=== PATIENT | female | born 1955 | race Caucasian/White ===

== ENCOUNTER → 2016-08-28 | Outpatient (CLI) | payer MEDICARE, MEDICAID | LOC: FS 10:21 | PROVIDERS: ATTEND Internal Medicine Hematology & Oncology | DX: D05.12 Intraductal carcinoma in situ of left breast (principal); F41.9 Anxiety disorder, unspecified; F32.9 Major depressive disorder, single episode, unspecified; E11.9 Type 2 diabetes mellitus without complications; K21.9 Gastro-esophageal reflux disease without esophagitis; I10 Essential (primary) hypertension; E78.00 Pure hypercholesterolemia, unspecified; E03.9 Hypothyroidism, unspecified; G47.33 Obstructive sleep apnea (adult) (pediatric); N39.3 Stress incontinence (female) (male); Z92.3 Personal history of irradiation; Z90.710 Acquired absence of both cervix and uterus; Z79.899 Other long term (current) drug therapy | CPT/HCPCS: 99213 ==

== ENCOUNTER 2017-09-30 14:38 | Outpatient (CLI) | payer MEDICARE, MEDICAID ==
[2017-09-30 15:10] LABS: BASOPHILS # (AUTO) 0.1 10^3/uL (0.0-0.1); BASOPHILS % (AUTO) 1 % (0-10); EOSINOPHILS # (AUTO) 0.4 10^3/uL (0.0-0.3); EOSINOPHILS % (AUTO) 4 % (0-10); HEMATOCRIT 32 % (35-52); HEMOGLOBIN 9.6 G/DL (11.5-16.0); LYMPHOCYTES # (AUTO) 2.4 X 10^3 (1.0-4.0); LYMPHOCYTES % (AUTO) 27 % (12-44); MEAN CORPUSCULAR HEMOGLOBIN 27 PG (25-34); MEAN CORPUSCULAR HGB CONC 30 G/DL (32-36); MEAN CORPUSCULAR VOLUME 91 FL (80-99); MEAN PLATELET VOLUME 8.8 FL (7.4-10.4); MONOCYTES # (AUTO) 0.6 X 10^3 (0.0-1.0); MONOCYTES % (AUTO) 7 % (0-12); NEUTROPHILS # (AUTO) 5.7 X 10^3 (1.8-7.8); NEUTROPHILS % (AUTO) 62 % (42-75); PLATELET COUNT 309 10^3/uL (130-400); RED CELL DISTRIBUTION WIDTH 14.4 % (10.0-14.5); WHITE BLOOD COUNT 9.1 10^3/uL (4.3-11.0)
[2017-09-30 15:28] LABS: ALANINE AMINOTRANSFERASE 11 U/L (0-55); ALBUMIN 3.6 GM/DL (3.2-4.5); ALKALINE PHOSPHATASE 124 U/L (40-136); BILIRUBIN,TOTAL 0.2 MG/DL (0.1-1.0); BUN/CREATININE RATIO 24; CALCIUM 9.3 MG/DL (8.5-10.1); CARBON DIOXIDE 25 MMOL/L (21-32); CHLORIDE 104 MMOL/L (98-107); CREATININE SERUM 0.74 MG/DL (0.60-1.30); GFR ESTIMATED > 60; GLUCOSE 106 MG/DL (70-105); POTASSIUM 4.5 MMOL/L (3.6-5.0); SODIUM 137 MMOL/L (135-145)
[2017-12-30 12:53] LABS: BASOPHILS % (AUTO) 0 % (0-10); EOSINOPHILS # (AUTO) 0.3 10^3/uL (0.0-0.3); EOSINOPHILS % (AUTO) 3 % (0-10); HEMATOCRIT 37 % (35-52); HEMOGLOBIN 11.5 G/DL (11.5-16.0); LYMPHOCYTES # (AUTO) 2.2 X 10^3 (1.0-4.0); LYMPHOCYTES % (AUTO) 24 % (12-44); MEAN CORPUSCULAR HEMOGLOBIN 28 PG (25-34); MEAN CORPUSCULAR HGB CONC 31 G/DL (32-36); MEAN CORPUSCULAR VOLUME 90 FL (80-99); MEAN PLATELET VOLUME 8.5 FL (7.4-10.4); MONOCYTES # (AUTO) 0.5 X 10^3 (0.0-1.0); MONOCYTES % (AUTO) 6 % (0-12); NEUTROPHILS % (AUTO) 67 % (42-75); PLATELET COUNT 227 10^3/uL (130-400); RED BLOOD COUNT 4.08 10^6/uL (4.35-5.85); RED CELL DISTRIBUTION WIDTH 14.4 % (10.0-14.5)
== END 2017-12-30 12:40 | disposition home or self-care (01) ==
LOC: ONC 14:38
PROVIDERS: ATTEND Internal Medicine Hematology & Oncology
DX: D64.9 Anemia, unspecified (principal); Z86.000 Personal history of in-situ neoplasm of breast; E11.9 Type 2 diabetes mellitus without complications; K21.9 Gastro-esophageal reflux disease without esophagitis; E78.00 Pure hypercholesterolemia, unspecified; E03.9 Hypothyroidism, unspecified; G47.33 Obstructive sleep apnea (adult) (pediatric); N39.3 Stress incontinence (female) (male); F41.9 Anxiety disorder, unspecified; F32.9 Major depressive disorder, single episode, unspecified; F40.240 Claustrophobia; Z90.710 Acquired absence of both cervix and uterus; Z79.899 Other long term (current) drug therapy; Z79.82 Long term (current) use of aspirin; Z79.84 Long term (current) use of oral hypoglycemic drugs; Z09 Encounter for follow-up examination after completed treatment for conditions other than malignant neoplasm; Z92.3 Personal history of irradiation
CPT/HCPCS: 36415; 80053; 82728; 83540; 85025; 99213

== ENCOUNTER 2017-12-30 12:43 | Outpatient (RCR) | payer MEDICARE, MEDICAID | END 2018-03-30 | disposition home or self-care (01) | LOC: ONC 12:43 | PROVIDERS: ATTEND Internal Medicine Hematology & Oncology | DX: D50.9 Iron deficiency anemia, unspecified (principal); Z86.000 Personal history of in-situ neoplasm of breast; E11.9 Type 2 diabetes mellitus without complications; K21.9 Gastro-esophageal reflux disease without esophagitis; E78.00 Pure hypercholesterolemia, unspecified; E03.9 Hypothyroidism, unspecified; G47.33 Obstructive sleep apnea (adult) (pediatric); N39.3 Stress incontinence (female) (male); F41.9 Anxiety disorder, unspecified; F32.9 Major depressive disorder, single episode, unspecified; F40.240 Claustrophobia; Z90.710 Acquired absence of both cervix and uterus; Z79.899 Other long term (current) drug therapy; Z79.82 Long term (current) use of aspirin; Z79.84 Long term (current) use of oral hypoglycemic drugs; Z09 Encounter for follow-up examination after completed treatment for conditions other than malignant neoplasm; Z92.3 Personal history of irradiation | CPT/HCPCS: 99213 ==

== ENCOUNTER → 2018-04-24 | Outpatient (CLI) | payer OTHER, MEDICAID ==
--- NOTE | 2018-04-24 18:22 | Diagnostic Imaging Report ---
INDICATION: Pain. FINDINGS: There are arthritic changes about the knee greatest at the lateral and medial tibiofemoral compartment but also involving the patellofemoral joint. No radiodense loose body. No obvious joint effusion. IMPRESSION: Osteoarthritis with no opaque loose body, convincing evidence for joint effusion, or acute bony pathology. Dictated by: Dictated on workstation # [id number]
--- NOTE | 2018-04-24 18:22 | Diagnostic Imaging Report ---
INDICATION: Nontraumatic pain. FINDINGS: There is mild glenohumeral osteoarthritis. The AC joint is unremarkable. The visualized adjacent ribs, pleura, and right lung appear unremarkable. No loose body. No fracture, dislocation, bony destruction, or foreign body. IMPRESSION: Unremarkable shoulder radiographs. Dictated by: Dictated on workstation # [id number]
== END ==
LOC: RAD FS 17:24
PROVIDERS: ATTEND Family Medicine
DX: M17.11 Unilateral primary osteoarthritis, right knee (principal); M25.511 Pain in right shoulder
CPT/HCPCS: 73030; 73562

== ENCOUNTER 2018-04-29 12:25 | Outpatient (RCR) | payer MEDICARE, MEDICAID ==
[2018-04-29 12:59] LABS: ABSOLUTE RETIC # 79 10e9/L (24-90); BASOPHILS # (AUTO) 0.1 10^3/uL (0.0-0.1); BASOPHILS % (AUTO) 1 % (0-10); EOSINOPHILS # (AUTO) 0.2 10^3/uL (0.0-0.3); EOSINOPHILS % (AUTO) 2 % (0-10); HEMATOCRIT 36 % (35-52); HEMOGLOBIN 11.2 G/DL (11.5-16.0); LYMPHOCYTES % (AUTO) 27 % (12-44); MEAN CORPUSCULAR HEMOGLOBIN 29 PG (25-34); MEAN CORPUSCULAR HGB CONC 31 G/DL (32-36); MEAN CORPUSCULAR VOLUME 93 FL (80-99); MONOCYTES # (AUTO) 0.6 X 10^3 (0.0-1.0); MONOCYTES % (AUTO) 7 % (0-12); NEUTROPHILS # (AUTO) 4.7 X 10^3 (1.8-7.8); NEUTROPHILS % (AUTO) 63 % (42-75); PLATELET COUNT 227 10^3/uL (130-400); RED CELL DISTRIBUTION WIDTH 13.4 % (10.0-14.5); RETICULOCYTE % 2.05 % (0.50-2.40); WHITE BLOOD COUNT 7.5 10^3/uL (4.3-11.0)
[2018-04-29 13:22] LABS: ALANINE AMINOTRANSFERASE 8 U/L (0-55); ALBUMIN 3.6 GM/DL (3.2-4.5); ALKALINE PHOSPHATASE 92 U/L (40-136); BILIRUBIN,TOTAL 0.3 MG/DL (0.1-1.0); BUN/CREATININE RATIO 19; CALCIUM 9.6 MG/DL (8.5-10.1); CARBON DIOXIDE 28 MMOL/L (21-32); CHLORIDE 102 MMOL/L (98-107); CREATININE SERUM 0.79 MG/DL (0.60-1.30); GFR ESTIMATED > 60; GLUCOSE 123 MG/DL (70-105); POTASSIUM 4.7 MMOL/L (3.6-5.0); SODIUM 140 MMOL/L (135-145); TOTAL PROTEIN 6.8 GM/DL (6.4-8.2)
[2018-07-19] MEDS ORDERED: ONDA4TAB11 PO (23:44)
[2018-07-19] MEDS ORDERED: CEPH500T PO (23:44)
== END 2018-07-28 | disposition home or self-care (01) ==
LOC: ONC 12:25
PROVIDERS: ATTEND Internal Medicine Hematology & Oncology
DX: D50.9 Iron deficiency anemia, unspecified (principal); Z86.000 Personal history of in-situ neoplasm of breast; E11.9 Type 2 diabetes mellitus without complications; K21.9 Gastro-esophageal reflux disease without esophagitis; E78.00 Pure hypercholesterolemia, unspecified; E03.9 Hypothyroidism, unspecified; G47.33 Obstructive sleep apnea (adult) (pediatric); N39.3 Stress incontinence (female) (male); F41.9 Anxiety disorder, unspecified; F32.9 Major depressive disorder, single episode, unspecified; F40.240 Claustrophobia; Z90.710 Acquired absence of both cervix and uterus; Z79.899 Other long term (current) drug therapy; Z79.82 Long term (current) use of aspirin; Z79.84 Long term (current) use of oral hypoglycemic drugs; Z09 Encounter for follow-up examination after completed treatment for conditions other than malignant neoplasm; Z92.3 Personal history of irradiation
CPT/HCPCS: 36415; 80053; 82728; 85025; 85045; 99213

== ENCOUNTER → 2018-05-01 | Outpatient (CLI) | payer MEDICARE, MEDICAID ==
--- NOTE | 2018-05-01 14:16 | Diagnostic Imaging Report ---
INDICATION: Injury to the right shoulder. TIME OF EXAM: 02:04 p.m. FINDINGS: Three views of the right shoulder demonstrate normal glenohumeral and acromioclavicular alignment. The acromiohumeral space is normal. No fracture or dislocation is seen. IMPRESSION: No acute abnormalities detected. Dictated by: Dictated on workstation # [id number]
--- NOTE | 2018-05-01 14:55 | Diagnostic Imaging Report ---
INDICATION: Contusion/injury, right shoulder injury COMPARISON: AP and Y. views of 05/01/2018 at 2:04 PM. Two axillary views of the right shoulder demonstrate minimal joint space narrowing. There is no osseous lesion, fracture or dislocation. IMPRESSION: No fracture or dislocation. Dictated by: Dictated on workstation # [id number]
== END ==
LOC: RAD FS 13:51
PROVIDERS: ATTEND Nurse Practitioner
DX: S40.011A Contusion of right shoulder, initial encounter (principal); M19.011 Primary osteoarthritis, right shoulder
CPT/HCPCS: 73020; 73030

== ENCOUNTER 2018-07-19 22:16 | Emergency (ER) | payer MEDICARE, MEDICAID ==
[~2018-07-19] VITALS: Ht 157.5 cm; Wt 113.4 kg
[2018-07-19] MEDS ORDERED: NS IV 500 ML 500 ML IV STA (22:31)
[2018-07-19] MEDS ORDERED: ONDANSETRON 4 MG/2 ML (SDV) Z0FRAN IVP STA (22:31)
[2018-07-19] MEDS ORDERED: KETOROLAC 30 MG/ML VIAL IVP ONE (22:45)
--- NOTE | 2018-07-19 22:53 | ED GI ---
General Chief Complaint: Abdominal/GI Problems Stated Complaint: VOMITTING Source of Information: Patient History of Present Illness Date Seen by Provider: Jul 19, 2018 Time Seen by Provider: 22:24 Initial Comments 63-year-old female presenting with complaints of epigastric pain and nausea and vomiting. She states that she had been out at [employer] and was eating [employer] and food at the fair. After getting home this evening she was having diffuse abdominal pain and cramping with n/v. She was vomiting bile and so she came to the ED to be evaluated. She has had similar symptoms in the past with UTI. She has no fever but subjectively felt like she had a fever and chills. She has frequency with urination but no pain. She has not had a bowel movement today but had one yesterday that was normal for her. Allergies and Home Medications Allergies Coded Allergies: Sulfa (Sulfonamide Antibiotics) (Verified Allergy, Intermediate, Rash, 07/19/18) azithromycin (Verified Allergy, Intermediate, Nausea, 07/19/18) nausea and vomiting oxycodone (Verified Allergy, Intermediate, Rash, 07/19/18) prednisone (Verified Allergy, Intermediate, Rash, 07/19/18) Rash, Nausea/Vomiting propoxyphene (Verified Allergy, Intermediate, Rash, 07/19/18) vilazodone (Verified Allergy, Intermediate, Diarrhea, 07/19/18) aspartame (Verified Allergy, Unknown, 07/19/18) Home Medications Cephalexin 500 Mg Tablet, 500 MG PO TID Prescribed by: DAYSI DE LA FUENTE on 07/19/18 2344 Ondansetron 4 Mg Tab.rapdis, 4 MG PO Q6H PRN for NAUSEA/VOMITING Prescribed by: DAYSI CHAUDHRYRT on 07/19/18 2344 Patient Home Medication List Home Medication List Reviewed: Yes Review of Systems Review of Systems Constitutional: chills, fever (subjective), malaise EENTM: No Symptoms Reported Respiratory: No Symptoms Reported Cardiovascular: No Symptoms Reported Gastrointestinal: See HPI Genitourinary: See HPI Musculoskeletal: no symptoms reported Skin: no symptoms reported Psychiatric/Neurological: No Symptoms Reported Endocrine: No Symptoms Reported Past Skwchhz-Ejijyl-Xhffqr Hx Past Med/Social Hx: Reviewed Nursing Past Med/Soc Hx Patient Social History Recent Foreign Travel: No Contact w/Someone Who Travel: No Physical Exam Vital Signs Vital Signs - First Documented 07/19/18 22:30 Temp 98.3 Pulse 100 Resp 18 B/P (MAP) 153/82 (105) Pulse Ox 95 Capillary Refill : Height/Weight/BMI Height: '" Weight: lbs. oz. kg; BMI Method: General Appearance: no apparent distress, obese HEENT: normal ENT inspection, pharynx normal Neck: non-tender, full range of motion, supple, normal inspection Respiratory: chest non-tender, lungs clear, normal breath sounds Cardiovascular: normal peripheral pulses, regular rate, rhythm Gastrointestinal: normal bowel sounds, soft, no pulsatile mass, tenderness (mild epigastric and suprapubic tenderness to palpation) Extremities: normal range of motion, non-tender, no calf tenderness Neurologic/Psychiatric: alert Skin: normal color, warm/dry Progress/Results/Core Measures Results/Orders Lab Results Laboratory Tests Test 07/19/18 22:30 07/19/18 23:00 Range/Units White Blood Count 9.2 4.3-11.0 10^3/uL Red Blood Count 3.95 L 4.35-5.85 10^6/uL Hemoglobin 11.8 11.5-16.0 G/DL Hematocrit 38 35-52 % Mean Corpuscular Volume 96 80-99 FL Mean Corpuscular Hemoglobin 30 25-34 PG Mean Corpuscular Hemoglobin Concent 31 L 32-36 G/DL Red Cell Distribution Width 13.9 10.0-14.5 % Platelet Count 227 130-400 10^3/uL Mean Platelet Volume 9.1 7.4-10.4 FL Neutrophils (%) (Auto) 58 42-75 % Lymphocytes (%) (Auto) 32 12-44 % Monocytes (%) (Auto) 7 0-12 % Eosinophils (%) (Auto) 3 0-10 % Basophils (%) (Auto) 0 0-10 % Neutrophils # (Auto) 5.3 1.8-7.8 X 10^3 Lymphocytes # (Auto) 2.9 1.0-4.0 X 10^3 Monocytes # (Auto) 0.7 0.0-1.0 X 10^3 Eosinophils # (Auto) 0.2 0.0-0.3 10^3/uL Basophils # (Auto) 0.0 0.0-0.1 10^3/uL Sodium Level 139 135-145 MMOL/L Potassium Level 4.4 3.6-5.0 MMOL/L Chloride Level 96 L 98-107 MMOL/L Carbon Dioxide Level 23 21-32 MMOL/L Anion Gap 20 H 5-14 MMOL/L Blood Urea Nitrogen 33 H 7-18 MG/DL Creatinine 1.15 0.60-1.30 MG/DL Estimat Glomerular Filtration Rate 48 BUN/Creatinine Ratio 29 Glucose Level 154 H 70-105 MG/DL Calcium Level 9.6 8.5-10.1 MG/DL Corrected Calcium 9.5 8.5-10.1 MG/DL Total Bilirubin 0.3 0.1-1.0 MG/DL Aspartate Amino Transf (AST/SGOT) 17 5-34 U/L Alanine Aminotransferase (ALT/SGPT) 12 0-55 U/L Alkaline Phosphatase 116 40-136 U/L Total Protein 7.5 6.4-8.2 GM/DL Albumin 4.1 3.2-4.5 GM/DL Lipase 21 8-78 U/L Urine Color YELLOW Urine Clarity CLEAR Urine pH 5.5 5-9 Urine Specific [place] 1.020 1.016-1.022 Urine Protein NEGATIVE NEGATIVE Urine Glucose (UA) NEGATIVE NEGATIVE Urine Ketones NEGATIVE NEGATIVE Urine Nitrite NEGATIVE NEGATIVE Urine Bilirubin NEGATIVE NEGATIVE Urine Urobilinogen 1.0 NORMAL MG/DL Urine Leukocyte Esterase NEGATIVE NEGATIVE Urine RBC (Auto) NEGATIVE NEGATIVE Urine RBC NONE /HPF Urine WBC 2-5 /HPF Urine Squamous Epithelial Cells 2-5 /HPF Urine Crystals NONE /LPF Urine Bacteria MODERATE H /HPF Urine Casts PRESENT /LPF Urine Hyaline Casts 10-25 H /LPF Urine Mucus MODERATE H /LPF Urine Culture Indicated YES My Orders Orders - DAYSI DE LA FUENTE MD Comprehensive Metabolic Panel (07/19/18 22:31) Lipase (07/19/18 22:31) Ua Culture If Indicated (07/19/18 22:31) Ed Iv/Invasive Line Start (07/19/18 22:31) Cbc With Automated Diff (07/19/18 22:31) Ns Iv 500 Ml (Sodium Chloride 0.9%) (07/19/18 22:31) Ondansetron Injection (Zofran Injectio (07/19/18 22:31) Ketorolac Injection (Toradol Injection) (07/19/18 22:45) Urine Culture (07/19/18 23:00) Ceftriaxone For Iv Use (Rocephin For I (07/19/18 23:25) Rx-Ondansetron Po (Rx-Zofran Po) (07/19/18 23:45) Medications Given in ED Current Medications Medications Dose Ordered Sig/Bebeto Route Start Time Stop Time Status Last Admin Dose Admin Ketorolac Tromethamine 30 mg ONCE ONCE IVP 07/19/18 22:45 07/19/18 22:46 DC 07/19/18 23:00 30 MG Ondansetron HCl 4 mg Q6H PRN PO 07/19/18 23:45 07/20/18 00:11 DC 07/19/18 23:46 4 MG Vital Signs/I&O 07/19/18 07/19/18 22:30 23:58 Temp 98.3 Pulse 100 70 Resp 18 16 B/P (MAP) 153/82 (105) 114/64 (81) Pulse Ox 95 96 07/20/18 00:00 Intake Total 510 ml Balance 510 ml Progress Progress Note #1: Progress Note check labs and UA. Give IVF of 500 mL NS for hydration, Zofran for nausea, Toradol for pain. Progress Note #2: Progress Note On recheck she is feeling better. Labs do not show any acute significant abnormality on CBC or Chemistry. Her UA does show findings consistent with UTI so will give Rocephin 1 gm IV here and discharge on keflex. Treat nausea with Zofran ODT prn Departure Impression Primary Impression: Acute cystitis without hematuria Additional Impression: Bilious vomiting with nausea Disposition: HOME, SELF-CARE Condition: Improved Departure-Patient Inst. Decision time for Depature: 23:40 Referrals: [facility] MD (PCP/Family) Primary Care Physician Patient Instructions: Nausea and Vomiting, Adult (DC), Acute Cystitis (DC) Add. Discharge Instructions: Take antibiotics until gone. Stay well hydrated to help flush out the urine infection. You may also take Mylanta or Pepcid medicine to help with stomach upset or indigestion. Zofran dissolving tablets will help with nausea so you are not throwing up so much. All discharge instructions reviewed with patient and/or family. Voiced understanding. Scripts Ondansetron (Ondansetron Odt) 4 Mg Tab.rapdis 4 MG PO Q6H PRN for NAUSEA/VOMITING for 3 Days, #10 TAB 0 Refills Prov: DAYSI DE LA FUENTE MD 07/19/18 Cephalexin (Cephalexin) 500 Mg Tablet 500 MG PO TID for UTI for 10 Days, #30 TAB 0 Refills Prov: DAYSI DE LA FUENTE MD 07/19/18 DAYSI DE LA FUENTE MD Jul 19, 2018 22:53
[2018-07-19 22:58] LABS: POTASSIUM 4.4 MMOL/L (3.6-5.0)
[2018-07-19 22:59] LABS: ALBUMIN 4.1 GM/DL (3.2-4.5); BILIRUBIN,TOTAL 0.3 MG/DL (0.1-1.0); CALCIUM 9.6 MG/DL (8.5-10.1); CREATININE SERUM 1.15 MG/DL (0.60-1.30); TOTAL PROTEIN 7.5 GM/DL (6.4-8.2)
[2018-07-19 23:00] LABS: BASOPHILS % (AUTO) 0 % (0-10); EOSINOPHILS % (AUTO) 3 % (0-10); HEMATOCRIT 38 % (35-52); HEMOGLOBIN 11.8 G/DL (11.5-16.0); LYMPHOCYTES # (AUTO) 2.9 X 10^3 (1.0-4.0); LYMPHOCYTES % (AUTO) 32 % (12-44); MEAN CORPUSCULAR HEMOGLOBIN 30 PG (25-34); MEAN CORPUSCULAR HGB CONC 31 G/DL (32-36); MEAN CORPUSCULAR VOLUME 96 FL (80-99); MEAN PLATELET VOLUME 9.1 FL (7.4-10.4); MONOCYTES % (AUTO) 7 % (0-12); NEUTROPHILS # (AUTO) 5.3 X 10^3 (1.8-7.8); NEUTROPHILS % (AUTO) 58 % (42-75); PLATELET COUNT 227 10^3/uL (130-400); RED CELL DISTRIBUTION WIDTH 13.9 % (10.0-14.5); WHITE BLOOD COUNT 9.2 10^3/uL (4.3-11.0)
[2018-07-19 23:01] LABS: EOSINOPHILS # (AUTO) 0.2 10^3/uL (0.0-0.3); MONOCYTES # (AUTO) 0.7 X 10^3 (0.0-1.0)
[2018-07-19 23:16] LABS: CLARITY,URINE CLEAR; COLOR,URINE YELLOW; GLUCOSE, URINE (UA) NEGATIVE (NEGATIVE); PH,URINE 5.5 (5-9); PROTEIN,URINE NEGATIVE (NEGATIVE)
[2018-07-19 23:17] LABS: BACTERIA,URINE MODERATE /HPF; BILIRUBIN,URINE NEGATIVE (NEGATIVE); KETONES,URINE NEGATIVE (NEGATIVE); LEUKOCYTE ESTERASE ,URINE NEGATIVE (NEGATIVE); NITRITE,URINE NEGATIVE (NEGATIVE)
[2018-07-19] MEDS ORDERED: cefTRIAXone FOR IV USE 1,000 MG in WATER (STERILE) FOR INJECTION 10 ML IV STA (23:25)
[2018-07-19] MEDS ORDERED: ONDA4TAB11 PO (23:44)
[2018-07-19] MEDS ORDERED: CEPH500T PO (23:44)
[2018-07-19] MEDS ORDERED: RX-ONDANSETRON 4 MG ODT (ZOFRAN) PPK #4 PO PRN (23:45)
[2018-07-19 23:58] VITALS: BP 114/64
--- OUTSIDE RECORDS SUMMARY | 2018-07-20 06:23 | XMS REPORT | Clinical Summary ---
Author Author [facility] Organization [facility] Address Unknown Phone Unavailable Care Team Providers Care [place] [facility] Name Role Phone Self, Hasmukh HARRIS PCP Allergies Active Allergy Reactions Severity Noted Date Comments Aspartame 06/17/2017 Azithromycin 06/17/2017 Oxycodone-Acetaminophen 06/17/2017 Oxycodone 06/17/2017 Miy-Sitlwyevb-Oxv Prednisone 06/17/2017 Propoxyphene 06/17/2017 Sulfa (Sulfonamide 06/17/2017 Antibiotics) Vilazodone 06/17/2017 Current Medications Prescription Sig. Disp. Refills Start End Date Status Date ARIPiprazole (ABILIFY) 20 TAKE 1/2 TABLET BY MOUTH 1 06/12/19 Active MG tablet DAILY 18 ciprofloxacin HCl 4 DROPS LEFT EAR BID FOR 0 05/31/19 Active (CILOXAN) 0.3 % 7 DAYS 18 ophthalmic solution DOK 100 mg capsule TK 1 C PO BID 1 06/13/19 Active 18 enalapril (VASOTEC) 5 MG TK 1 T PO D 2 04/16/19 Active tablet 18 HYSINGLA ER 40 mg TP24 TK 1 T PO DAILY 0 06/14/19 Active 18 indomethacin (INDOCIN) 25 TK 1 C PO TID . REPLACES 0 06/11/19 Active MG capsule MELOXICAM FOR ONE WEEK. 18 levothyroxine (SYNTHROID, 5 04/16/19 Active LEVOTHROID) 112 MCG 18 tablet loratadine (CLARITIN) 10 TK 1 T PO D 5 05/30/19 Active mg tablet 18 LORazepam (ATIVAN) 1 MG 2 05/29/19 Active tablet 18 meclizine (ANTIVERT) 25 3 06/13/19 Active mg tablet 18 meloxicam (MOBIC) 15 MG TK 1 T PO D 1 04/26/19 Active tablet 18 metformin (GLUCOPHAGE) TK 1 T PO D HS 1 04/25/19 Active 500 mg tablet 18 MOVANTIK 25 mg Tab 0 05/25/19 Active 18 NYSTOP powder APPLY TO AFFECTED AREA 0 06/13/19 Active BID 18 nystatin (MYCOSTATIN) ROCHELLE EXT AA BID 1 03/20/19 Active cream 18 omeprazole (PRILOSEC) 20 TK 1 C PO D 5 04/03/19 Active MG capsule 18 simvastatin (ZOCOR) 40 MG TK 1 T PO DAILY LATE 0 05/25/19 Active tablet 18 timolol (TIMOPTIC) 0.5 % INT 1 GTT IN OU BID 0 05/15/19 Active ophthalmic solution 18 venlafaxine (EFFEXOR-XR) 5 05/29/19 Active 150 mg ER 24 hr capsule 18 zolpidem (AMBIEN) 10 mg TK 1 T PO D HS 2 06/12/19 Active tablet 18 Active Problems Not on file Social History Tobacco Use Types Packs/Day Years Used Date Former Smoker Smokeless Tobacco: Never Used Alcohol Use Drinks/Week oz/Week Comments No Sex Assigned at Date Recorded Not on file Last Filed Vital Signs Vital Sign Reading Time Taken Blood Pressure 118/80 06/18/2017 12:46 AM CDT Pulse 88 06/18/2017 4:45 AM CDT Temperature 36.8 C (98.3 F) 06/17/2017 8:33 PM CDT Respiratory Rate 21 06/18/2017 4:45 AM CDT Oxygen Saturation 96% 06/18/2017 4:45 AM CDT Inhaled Oxygen - - Concentration Weight 104.3 kg (230 lb) 06/17/2017 8:33 PM CDT Height 167.6 cm (5' 6") 06/17/2017 8:33 PM CDT Body Mass Index 37.12 06/17/2017 8:33 PM CDT Plan of Treatment Health Maintenance Due Date Last Done Comments Hepatitis C Screen 1955 Medicare Annual Wellness 1955 Td # 1955 Colorectal Screening via 2007 Colonoscopy Mammogram Screening 2007 Zoster Vaccine# (1 of 2) 2007 Influenza Vaccine (Season 12/19/2018 Ended) Results Not on filefrom Last 3 Months
--- OUTSIDE RECORDS SUMMARY | 2018-07-20 06:24 | XMS REPORT ---
Author Author Migration, Doctor Organization [facility] Address Unknown Phone Unavailable Care Team Providers Care Utility Bill Collection Clerk Name Role Phone Migration, Doctor Unavailable Unavailable PROBLEMS Type Condition ICD9-CM Code EMN63-FU Code Onset Dates Condition Status SNOMED Code Problem Other chronic pain G89.29 Active 76528579 Problem Open wound of right foot, initial encounter S91.301A Active [id number] Problem Arthritis M19.90 Active 6278530 Problem Osteoarthritis M19.90 Active 670463042 Problem Major depression F32.9 Active 285960220 Problem Essential hypertension I10 Active 63784693 Problem GERD (gastroesophageal reflux disease) K21.9 Active 988614877 Problem Insomnia G47.00 Active 837832139 Problem Breast cancer C50.919 Active 826751058 Problem Spinal stenosis M48.00 Active 78506756 Problem Migraine G43.909 Active 71574604 Problem Migraine with aura and without status migrainosus, not intractable G43.109 Active 6920664 Problem Anxiety F41.9 Active 94969331 Problem Panic disorder F41.0 Active 694294281 Problem Functional urinary incontinence R39.81 Active 261850681 Problem Hypothyroidism E03.9 Active 21283063 Problem Major depressive disorder, recurrent episode, moderate F33.1 Active 687043422 Problem Borderline personality disorder F60.3 Active 36669593 Problem Morbid (severe) obesity due to excess calories E66.01 Active 647118655 Problem IZABEL on CPAP G47.33 Active 40842587 Problem Type 2 diabetes mellitus E11.9 Active 03772506 Problem Diabetic polyneuropathy associated with type 2 diabetes mellitus E11.42 Active 09095135 ALLERGIES No Information ENCOUNTERS Encounter Location Date Diagnosis [address] [address] Aug, [address] [address] Jul, [facility] [address] [facility] [id number], [place] [address] Jul, [facility] [address] [place] [address] [place] [address] June, [facility] [address] [place] [address] [place] [address] June, [facility] [address] [place] [address] [place] [address] June, Type 2 diabetes mellitus E11.9 [facility] [address] [place] [address] [place] [address] June, Type 2 diabetes mellitus E11.9 [facility] [facility] [address] [place] [address] [place] [address] June, [facility] [address] [place] [address] [place] [address] June, [facility] [address] [place] [address] June, [facility] [address] [place] [address] June, Morbid obesity E66.01 [facility] [address] [place] [address] May, [facility] [address] [place] [address] May, [facility] [address] [place] [address] May, [facility] [address] [place] [address] May, Hypothyroidism E03.9 ; Type 2 diabetes mellitus E11.9 and Morbid obesity E66.01 [facility] [address] [place] [address] May, Morbid obesity E66.01 [facility] [address] [facility] [id number], [place] [address] May, Peripheral edema R60.9 [facility] [address] [facility] [id number], [place] [address] May, Peripheral edema R60.9 ; Weight gain R63.5 ; Shortness of breath R06.02 and Morbid obesity E66.01 [facility] [address] [place] [address] May, Pedal edema R60.0 and Morbid obesity E66.01 [facility] [address] [address] May, [facility] [address] [address] May, [facility] [address] [address] May, [facility] [address] [facility] [id number], [place] [address] Apr, Bilateral lower extremity edema R60.0 ; Morbid obesity E66.01 and Weight gain R63.5 [facility] [address] [address] Apr, [facility] [address] [address] Apr, [facility] [place] [address] [address] Apr, Migraine with aura and without status migrainosus, not intractable G43.109 [facility] [address] [address] Apr, [facility] [address] [address] Apr, [facility] [address] [address] Apr, [facility] [address] [address] Apr, [facility] [address] [address] Apr, [facility] [address] [address] 07 Apr, 2018 Type 2 diabetes mellitus E11.9 ; Pain in right knee M25.561 ; Other chronic pain G89.29 ; Pain in right shoulder M25.511 ; Morbid obesity E66.01 and Diabetic polyneuropathy associated with type 2 diabetes mellitus E11.42 [facility] [address] [address] 05 Apr, 2018 [facility] [id number], [place] [address] Apr, [facility] [address] [facility] [place] [address] Mar, Open wound of right foot, initial encounter S91.301A and Morbid obesity E66.01 [facility] [address] [facility] [place] [address] Mar, Dysuria R30.0 and Painful urination R30.9 [facility] [address] [address] Mar, Depression, major, recurrent, moderate 296.[address] [address] Mar, [address] [address] Mar, [place] [id number] [place] [address] Feb, Dental examination Z01.20 [facility] [address], [place] [address] Nov, [facility] [address] [place] [id number] [place] [address] Nov, [facility] [address], [place] [address] 08 Mar, 2015 Major depressive disorder, recurrent episode, moderate F33.1 ; Panic disorder F41.0 and Borderline personality disorder F60.3 [facility] [address], [place] [address] Sep, Depression, major, recurrent, moderate 296.32 ; Agoraphobia with panic disorder 300.21 and Borderline personality disorder 301.83 [facility] [address], [place] [address] Aug, Depression, major, recurrent, moderate 296.32 ; Panic disorder without agoraphobia 300.01 and Borderline personality disorder 301.83 [place] [address], [place] [address] 16 Jul, 2014 Depression, major, recurrent, moderate 296.32 ; Agoraphobia with panic disorder 300.21 and Posttraumatic stress disorder 309.81 [facility] [address], [place] [address] 30 May, 2014 [facility] [address] [place] [id number] [place] [address] 14 May, 2014 [facility] [id number], [place] [address] May, [facility] [address] [place] [place] [id number] [place] [address] Apr, [facility] [id number], [place] [address] Apr, [facility] [address] [place] [id number] [place] [address] Apr, [facility] [id number], [place] [address] Apr, [facility] [id number], [place] [address] Mar, [facility] [id number], [place] [address] Mar, [facility] [id number], [place] [address] Mar, [facility] [id number], [place] [address] Mar, [facility] [id number], [place] [address] Feb, [facility] [id number], [place] [address] Feb, [facility] [id number], [place] [address] Jan, [facility] [place] [facility] [address] [id number] [place] [address] Jan, [facility] [place] [facility] [address] [id number] [place] [address] Jan, [facility] [place] [facility] [address] [id number] [place] [address] Jan, [facility] [place] [facility] [address] [id number] [place] [id number] Dec, [facility] [place] [facility] [address] [id number] [place] [id number] Dec, [facility] [place] [facility] [address] [id number] [place] [address] Dec, [facility] [place] [facility] [address] [id number] [place] [address] Dec, [facility] [place] [facility] [address] [id number] [place] [address] Dec, [facility] [place] [facility] [address] [id number] [place] [address] Nov, [facility] [place] [facility] [address] [id number] [place] [address] Nov, [facility] [place] [facility] [address] [id number] [place] [address] Nov, [facility] [place] [facility] [address] [id number], [place] [address] Nov, [facility] [place] [facility] [address] [id number] [place] [address] Nov, [facility] [place] [facility] [address] [id number] [place] [address] Nov, [facility] [place] [facility] [address] [id number], [place] [address] Nov, [facility] [place] [facility] [address] [id number], [place] [address] Nov, [facility] [place] [facility] [address] [id number] [place] [address] Oct, [facility] [place] [facility] [address] [id number] [place] [address] Oct, [facility] [place] [facility] [address] [id number] [place] [address] Sep, [facility] [place] [facility] [address] [id number] [place] [address] Sep, [facility] [place] [facility] [address] [id number] [place] [address] Sep, [facility] [place] [facility] [address] [id number] [place] [address] Sep, [facility] [place] [facility] [address] [id number] [place] [address] Sep, [facility] [place] [facility] [address] [id number] [place] [address] Sep, [facility] [place] [facility] [address] [id number] [place] [address] Jul, [facility] [place] [facility] [address] [id number] [place] [address] Jul, [facility] [place] [facility] [address] [id number] [place] [address] June, [facility] [place] [facility] [address] [id number] [place] [address] June, [facility] [place] [facility] [address] [id number] [place] [address] June, [facility] [place] [facility] [address] [id number] [place] [address] June, [facility] [place] [facility] [address] [id number] [place] [address] May, [facility] [place] [facility] [address] [id number] [place] [address] May, [facility] [address] [id number] [place] [address] May, [facility] [place] [facility] [address] [id number] [place] [address] May, [facility] [place] [facility] [address] [id number] [place] [address] Apr, [facility] [place] [facility] [address] [id number] [place] [address] Apr, [facility] [place] [facility] [address] [id number] [place] [address] Mar, [facility] [place] [facility] [address] [id number] [place] [address] Mar, [facility] [place] [facility] [address] [id number] [place] [address] Feb, [facility] [address] [id number] [place] [address] Feb, [facility] [place] [facility] [address] [id number] [place] [address] Feb, [facility] [place] [facility] [address] [id number] [place] [address] Feb, [facility] [place] [facility] [address] [id number] [place] [address] Dec, [facility] [place] [facility] [address] [id number] [place] [address] Dec, [facility] [place] [facility] [address] [id number] [place] [address] Dec, [facility] [place] [facility] [address] [id number] [place] [address] Dec, [facility] [place] [facility] [address] [id number] [place] [address] Nov, [facility] [place] [facility] [address] [id number] [place] [address] Nov, [facility] [place] [facility] [address] [id number] [place] [address] Nov, [facility] [place] [facility] [address] [id number] [place] [address] 16 Nov, 2012 [facility] [place] [facility] [address] [id number] [place] [address] 23 Oct, 2012 [facility] [place] [facility] [address] [id number] [place] [address] 16 Oct, 2012 [facility] [place] [facility] [address] [id number] [place] [address] Oct, [facility] [place] [facility] [address] [id number] [place] [address] Oct, [facility] [place] [facility] [address] [id number] [place] [address] Aug, [facility] [place] [facility] [address] [id number] [place] [address] Aug, [facility] [place] [facility] [address] [id number] [place] [address] Aug, [facility] [place] [facility] [address] [id number], [place] [address] Aug, [facility] [place] [facility] [address] [id number], [place] [address] Aug, [facility] [place] [facility] [address] [id number] [place] [address] Jul, [facility] [place] [facility] [address] [id number], [place] [address] June, [facility] [place] [facility] [address] [id number] [place] [address] May, [facility] [place] [facility] [address] [id number] [place] [address] 14 Apr, 2012 [facility] [address] [id number] [place] [address] 13 Mar, 2012 [facility] [place] [facility] [address] [id number] [place] [address] 11 Mar, 2012 [facility] [address] [id number] [place] [address] 20 Jan, 2012 [facility] [place] [facility] [address] [id number] [place] [address] Jan, [facility] [address] [id number] [place] [address] Jan, [facility] [place] [facility] [address] [id number] [place] [address] Jan, [facility] [address] [id number] [place] [address] Jan, [facility] [address] [id number] [place] [address] Jan, [facility] [place] [facility] [address] [id number] [place] [address] Jan, [facility] [address] [id number] [place] [address] Jan, [facility] [place] [facility] [address] [id number] [place] [address] Jan, [facility] [place] [facility] [address] [id number] [place] [address] Jan, [facility] [place] [facility] [address] [id number] [place] [address] Dec, [facility] [place] [facility] [address] [id number] [place] [address] Dec, [facility] [place] [facility] [address] [id number] [place] [address] Dec, [facility] [place] [facility] [address] [id number] [place] [address] Dec, [facility] [place] [facility] [address] [id number] [place] [address] Dec, [facility] [place] [facility] [address] [id number] [place] [address] Dec, [facility] [place] [facility] [address] [id number] [place] [address] Nov, [facility] [place] [facility] [address] [id number] [place] [address] Nov, [facility] [place] [facility] [address] [id number] [place] [address] Oct, [facility] [place] [facility] [address] [id number] [place] [address] Oct, [facility] [place] [facility] [address] [id number] [place] [address] Oct, [facility] [place] [facility] [address] [id number] [place] [address] Oct, [facility] [place] [facility] [address] [id number] [place] [address] Sep, [facility] [place] [facility] [address] [id number] [place] [address] Sep, [facility] [place] [facility] [address] [id number] [place] [address] Aug, [facility] [place] [facility] [address] [id number] [place] [address] Aug, [facility] [place] [facility] [address] [id number] [place] [address] Aug, [facility] [place] [facility] [address] [id number] [place] [address] Aug, [facility] [place] [facility] [address] [id number] [place] [address] Aug, [facility] [place] [facility] [address] [id number] [place] [address] Aug, [facility] [place] [facility] [address] [id number] [place] [address] Jul, [facility] [place] [facility] [address] [id number] [place] [address] Jul, [facility] [place] [facility] [address] [id number] [place] [address] June, [facility] [place] [facility] [address] [id number] [place] [address] June, [facility] [place] [facility] [address] [id number] [place] [address] May, [facility] [place] [facility] [address] [id number] [place] [address] May, [facility] [place] [facility] [address] [id number] [place] [address] May, [facility] [place] [facility] [address] [id number] [place] [address] May, [facility] [place] [facility] [address] [id number] [place] [address] Apr, [facility] [place] [facility] [address] [id number] [place] [address] Apr, [facility] [place] [facility] [address] [id number] [place] [address] Apr, [facility] [place] [facility] [address] [id number] [place] [address] Apr, [facility] [place] [facility] [address] [id number] [place] [address] Mar, [facility] [place] [facility] [address] [id number] [place] [address] Mar, [facility] [place] [facility] [address] [id number] [place] [address] 31 Feb, 2011 [facility] [place] [facility] [address] [id number] [place] [address] Feb, [facility] [place] [facility] [address] [id number] [place] [address] Feb, [facility] [place] [facility] [address] [id number] [place] [address] Feb, [facility] [place] [facility] [address] [id number] [place] [address] Feb, [facility] [place] [facility] [address] [id number] [place] [address] Jan, [facility] [place] [facility] [address] [id number] [place] [address] Dec, [facility] [place] [facility] [address] [id number] [place] [address] Dec, [facility] [place] [facility] [address] [id number] [place] [address] Dec, [facility] [place] [facility] [address] [id number] [place] [address] Nov, [facility] [place] [facility] [address] [facility] [id number] [place] [address] Nov, [facility] [place] [facility] [address] [id number] [place] [address] Aug, [facility] [place] [facility] [address] [id number] [place] [address] 15 Jan, 2010 [facility] [place] [facility] [address] [id number] [place] [address] Dec, [facility] [place] [facility] [address] [id number] [place] [address] Nov, [facility] [place] [facility] [address] [id number] [place] [address] Jan, [facility] [address] [facility] [id number] [place] [address] Jan, IMMUNIZATIONS No Known Immunizations SOCIAL HISTORY Never Assessed REASON FOR VISIT EMR-[facility] PLAN OF CARE VITAL SIGNS MEDICATIONS Unknown Medications RESULTS No Results PROCEDURES No Known procedures INSTRUCTIONS MEDICATIONS ADMINISTERED No Known Medications MEDICAL (GENERAL) HISTORY Type Description Date Medical History Essential hypertension Medical History Type 2 diabetes mellitus Medical History Hypothyroidism Medical History Arthritis Medical History Breast cancer Medical History Anxiety Medical History GERD (gastroesophageal reflux disease) Medical History Major depression Medical History Migraine Medical History Insomnia Medical History Osteoarthritis Medical History Spinal stenosis Medical History IZABEL on CPAP Medical History Morbid (severe) obesity due to excess calories Medical History Functional urinary incontinence Surgical History back surgery x 4 Surgical History carpel tunnel right hand Surgical History hysterectomy Surgical History surgery on left breast Surgical History x 3 Hospitalization History [facility] for [facility] surgery Hospitalization History lt breast surgery(cancer)
--- OUTSIDE RECORDS SUMMARY | 2018-07-20 06:24 | XMS REPORT | Clinical Summary ---
Author Author Admin, [place] Organization [facility] Address Unknown Phone Unavailable Allergies, Adverse Reactions, Alerts Allergy Name Reaction Description Start Date Severity Status Provider Allergies Unknown Conditions or Problems Problem Name Problem Code Onset Date Status Entry Date Provider Comment Standard Description Annotate Problems Unknown Active Medication List Medication Instructions Start Date Stop Date Generic Name NDC Status Provider Patient Instruction HYDROCHLOROTHIAZIDE 25 MG ORAL TABLET 1 tablet once daily HYDROCHLOROTHIAZIDE 78069980348 Active Kayla [facility] Active DIPHENOXYLATE-ATROPINE 2.5-0.025 MG/5ML ORAL LIQUID 1 tablet 4 times a day DIPHENOXYLATE-ATROPINE 43520179205 [facility] ENALAPRIL MALEATE 5 MG ORAL TABLET 1 tablet once daily ENALAPRIL MALEATE 47898623538 [facility] Active [facility]S OMEPRAZOLE 20 MG ORAL TABLET DELAYED RELEASE 1 capsule daily OMEPRAZOLE 65727280574 Active [facility] Active EFFEXOR XR 150 MG ORAL CAPSULE EXTENDED RELEASE 24 HOUR 2 capsules with food daily VENLAFAXINE HCL 64754006393 Active [facility] ATIVAN 1 MG ORAL TABLET 1 tablet three times daily LORAZEPAM 29453763121 Active [facility] Active GABAPENTIN 300 MG ORAL CAPSULE 2 capsules three times a day GABAPENTIN 56446774259 Active [facility] Active HYSINGLA ER 40 MG ORAL TABLET ER 24 HOUR ABUSE-DETERRENT 1 tablet once daily HYDROCODONE BITARTRATE 22271658181 Active Kayla Pendleton [employer] Active EUTHYROX 125 MCG ORAL TABLET 1 tablet on an empty stomach once daily LEVOTHYROXINE SODIUM 30289034762 [facility] ABILIFY 20 MG ORAL TABLET 1/2 tablet one daily ARIPIPRAZOLE 21371025379 Active Kayla Pendleton LPN Active COLACE CLEAR 50 MG ORAL CAPSULE 1 capsule twice daily DOCUSATE SODIUM 74770342744 Active Kayla Pendleton LPN Active FUROSEMIDE 20 MG ORAL TABLET once every other day FUROSEMIDE 71881689257 Active Kayla Pendleton LPN Active INDOMETHACIN 25 MG ORAL CAPSULE 1 capsule three times daily INDOMETHACIN 62980040896 Active Kayla Pendleton LPN Active ALAVERT 10 MG ORAL TABLET DISINTEGRATING once daily LORATADINE 92883223462 Active Kayla Pendleton LPN Active CVS MOTION SICKNESS II 25 MG ORAL TABLET 1 tablet as needed MECLIZINE HCL 44322811604 Active Kayla Pendleton LPN Active METFORMIN HCL 500 MG ORAL TABLET one tablet nighly METFORMIN HCL 93008663149 Active Kayla Pendleton LPN Active CRESTOR 20 MG ORAL TABLET once daily ROSUVASTATIN CALCIUM 73877982504 Active Kayla Pendleton LPN Active
--- OUTSIDE RECORDS SUMMARY | 2018-07-20 06:25 | XMS REPORT ---
Author Author AVERY NITISHEDWINA Sandy [facility] Address [address] [place] [address] Care Team Providers Care Atm Servicer Name Role Phone AARON VARELAWELL Unavailable PROBLEMS Type Condition ICD9-CM Code YTF42-UU Code Onset Dates Condition Status SNOMED Code Problem Other chronic pain G89.29 Active 73374650 Problem Open wound of right foot, initial encounter S91.301A Active [id number] Problem Arthritis M19.90 Active 3811549 Problem Osteoarthritis M19.90 Active 239758037 Problem Major depression F32.9 Active 165546197 Problem Essential hypertension I10 Active 46954168 Problem GERD (gastroesophageal reflux disease) K21.9 Active 368854268 Problem Insomnia G47.00 Active 947848558 Problem Breast cancer C50.919 Active 651677305 Problem Spinal stenosis M48.00 Active 47980721 Problem Migraine G43.909 Active 28087142 Problem Migraine with aura and without status migrainosus, not intractable G43.109 Active 2917238 Problem Anxiety F41.9 Active 67112397 Problem Panic disorder F41.0 Active 422932079 Problem Functional urinary incontinence R39.81 Active 972851774 Problem Hypothyroidism E03.9 Active 75704704 Problem Major depressive disorder, recurrent episode, moderate F33.1 Active 599698499 Problem Borderline personality disorder F60.3 Active 65311683 Problem Morbid (severe) obesity due to excess calories E66.01 Active 344993784 Problem IZABEL on CPAP G47.33 Active 05975244 Problem Type 2 diabetes mellitus E11.9 Active 99636445 Problem Diabetic polyneuropathy associated with type 2 diabetes mellitus E11.42 Active 30028499 ALLERGIES No Information ENCOUNTERS Encounter Location Date Diagnosis [facility] [address] [place] [address] Aug, [address] [address] June, [facility] [address] [place] [address] June, [facility] [address] [place] [address] June, [facility] [address] [place] [address] June, [facility] [address] [place] [address] June, Morbid obesity E66.01 [facility] [address] [place] [address] May, [facility] [address] [place] [address] May, [facility] [address] [place] [address] May, [facility] [address] [place] [address] May, Hypothyroidism E03.9 ; Type 2 diabetes mellitus E11.9 and Morbid obesity E66.01 [facility] [address] [place] [address] May, Morbid obesity E66.01 [facility] [address] [id number] [address] May, Peripheral edema R60.9 [facility] [address] [facility] [id number] [address] May, Peripheral edema R60.9 ; Weight gain R63.5 ; Shortness of breath R06.02 and Morbid obesity E66.01 [facility] [address] [place] [address] May, Pedal edema R60.0 and Morbid obesity E66.01 [facility] [address] [address] May, [facility] [address] [address] May, [facility] [address] [address] May, [facility] [address] [facility] [id number] [place] [address] 30 Apr, 2018 Bilateral lower extremity edema R60.0 ; Morbid obesity E66.01 and Weight gain R63.5 [facility] [address] [place] [address] Apr, [facility] [address] [address] Apr, [facility] [address] [address] Apr, Migraine with aura and without status migrainosus, not intractable G43.109 [facility] [address] [place] [address] Apr, [facility] [address] [address] Apr, [facility] [address] [address] Apr, [facility] [address] [address] Apr, [facility] [address] [address] Apr, [facility] [address] [address] Apr, Type 2 diabetes mellitus E11.9 ; Pain in right knee M25.561 ; Other chronic pain G89.29 ; Pain in right shoulder M25.511 ; Morbid obesity E66.01 and Diabetic polyneuropathy associated with type 2 diabetes mellitus E11.42 [facility] [address] [address] Apr, [facility] [address] [facility] [id number] [place] [address] Apr, [facility] [address] [place] [address] Mar, Open wound of right foot, initial encounter S91.301A and Morbid obesity E66.01 [facility] [address] [place] [address] Mar, Dysuria R30.0 and Painful urination R30.[address] [address] 07 Mar, 2018 Depression, major, recurrent, moderate 296.[address] [place] [address] Mar, [address] [address] Mar, [place] [address] [address] Feb, Dental examination Z01.20 [facility] [id number] [place] [address] Nov, [facility] [id number] [place] [address] Nov, [facility] [id number] [place] [address] 08 Mar, 2015 Major depressive disorder, recurrent episode, moderate F33.1 ; Panic disorder F41.0 and Borderline personality disorder F60.3 [place] [id number] [place] [address] Sep, Depression, major, recurrent, moderate 296.32 ; Agoraphobia with panic disorder 300.21 and Borderline personality disorder 301.83 [facility] [address] [address] Aug, Depression, major, recurrent, moderate 296.32 ; Panic disorder without agoraphobia 300.01 and Borderline personality disorder 301.83 [facility] [address] [address] Jul, Depression, major, recurrent, moderate 296.32 ; Agoraphobia with panic disorder 300.21 and Posttraumatic stress disorder 309.81 [facility] [address], [place] [address] May, [facility] [id number] [place] [address] May, [facility] [address] [facility] [id number] [place] [address] 13 May, 2014 [facility] [place] [facility] [address] [id number] [place] [address] 10 Apr, 2014 [facility] [place] [facility] [address] [id number] [place] [address] 10 Apr, 2014 [facility] [place] [facility] [address] [id number] [place] [address] 05 Apr, 2014 [facility] [place] [facility] [address] [facility] [id number] [place] [address] 05 Apr, 2014 [facility] [place] [facility] [address] [id number] [place] [address] Mar, [facility] [place] [facility] [address] [facility] [id number] [place] [address] Mar, 2014 [facility] [place] [facility] [address] [id number] [place] [address] Mar, [facility] [place] [facility] [address] [facility] [id number] [place] [address] Mar, [facility] [place] [facility] [address] [facility] [id number] [place] [address] Feb, [facility] [place] [facility] [address] [facility] [id number] [place] [address] Feb, [facility] [place] [facility] [address] [id number] [place] [address] Jan, [facility] [place] [facility] [address] [facility] [id number] [place] [address] Jan, [facility] [place] [facility] [address] [facility] [id number] [place] [address] Jan, [facility] [place] [facility] [address] [facility] [id number] [place] [address] 16 Jan, 2014 [facility] [place] [facility] [address] [id number] [place] [id number] Dec, [facility] [place] [facility] [address] [id number] [place] [address] Dec, [facility] [place] [facility] [address] [id number] [place] [address] Dec, [facility] [place] [facility] [address] [id number] [place] [address] Dec, [facility] [place] [facility] [address] [id number] [place] [address] Dec, [facility] [place] [facility] [address] [id number] [place] [address] Nov, [facility] [place] [facility] [address] [id number] [place] [address] Nov, [facility] [place] [facility] [address] [id number] [place] [address] Nov, [facility] [place] [facility] [address] [id number] [place] [address] Nov, [facility] [place] [facility] [address] [id number] [place] [address] Nov, [facility] [place] [facility] [address] [id number] [place] [address] Nov, [facility] [place] [facility] [address] [id number], [place] [address] Nov, [facility] [place] [facility] [address] [id number], [place] [address] Nov, [facility] [place] [facility] [address] [id number] [place] [address] Oct, [facility] [place] [facility] [address] [id number] [place] [address] Oct, [facility] [place] [facility] [address] [id number] [place] [address] Sep, [facility] [place] [facility] [address] [id number] [place] [address] Sep, [facility] [place] [facility] [address] [id number] [place] [address] Sep, [facility] [place] [facility] [address] [id number] [place] [address] Sep, [facility] [place] [facility] [address] [id number] [place] [address] Sep, [facility] [place] [facility] [address] [id number] [place] [address] Sep, [facility] [place] [facility] [address] [id number] [place] [address] Jul, [facility] [place] [facility] [address] [id number] [place] [address] Jul, [facility] [place] [facility] [address] [id number] [place] [address] June, [facility] [place] [facility] [address] [id number] [place] [address] June, [facility] [place] [facility] [address] [id number] [place] [address] June, [facility] [place] [facility] [address] [id number] [place] [address] June, [facility] [place] [facility] [address] [id number] [place] [address] May, [facility] [place] [facility] [address] [id number] [place] [address] May, [facility] [place] [facility] [address] [id number] [place] [address] May, [facility] [place] [facility] [address] [id number] [place] [address] May, [facility] [place] [facility] [address] [id number] [place] [address] Apr, [facility] [place] [facility] [address] [id number] [place] [address] Apr, [facility] [place] [facility] [address] [id number] [place] [address] Mar, [facility] [place] [facility] [address] [id number] [place] [address] Mar, [facility] [place] [facility] [address] [id number] [place] [address] Feb, [facility] [place] [facility] [address] [id number] [place] [address] Feb, [facility] [place] [facility] [address] [id number] [place] [address] Feb, [facility] [place] [facility] [address] [id number] [place] [address] Feb, [facility] [place] [facility] [address] [id number] [place] [address] Dec, [facility] [place] [facility] [address] [id number] [place] [address] Dec, [facility] [place] [facility] [address] [id number] [place] [address] Dec, [facility] [place] [facility] [address] [id number] [place] [address] Dec, [facility] [place] [facility] [address] [id number], [place] [address] Nov, [facility] [place] [facility] [address] [id number] [place] [address] Nov, [facility] [place] [facility] [address] [id number] [place] [address] 16 Nov, 2012 [facility] [place] [facility] [address] [id number] [place] [address] 16 Nov, 2012 [facility] [place] [facility] [address] [id number] [place] [address] 23 Oct, 2012 [facility] [address] [id number] [place] [address] 16 Oct, 2012 [facility] [place] [facility] [address] [id number] [place] [address] 10 Oct, 2012 [facility] [place] [facility] [address] [id number] [place] [address] Oct, [facility] [place] [facility] [address] [id number] [place] [address] 31 Aug, 2012 [facility] [place] [facility] [address] [id number] [place] [address] Aug, [facility] [place] [facility] [address] [id number] [place] [address] Aug, [facility] [place] [facility] [address] [id number] [place] [address] Aug, [facility] [place] [facility] [address] [id number] [place] [address] Aug, [facility] [place] [facility] [address] [id number] [place] [address] Jul, [facility] [place] [facility] [address] [id number] [place] [address] June, [facility] [place] [facility] [address] [id number] [place] [address] May, [facility] [place] [facility] [address] [id number] [place] [address] 14 Apr, 2012 [facility] [place] [facility] [address] [id number] [place] [address] 13 Mar, 2012 [facility] [place] [facility] [address] [id number] [place] [address] 11 Mar, 2012 [facility] [place] [facility] [address] [id number] [place] [address] Jan, [facility] [place] [facility] [address] [id number] [place] [address] Jan, [facility] [place] [facility] [address] [id number] [place] [address] Jan, [facility] [place] [facility] [address] [id number] [place] [address] Jan, [facility] [place] [facility] [address] [id number] [place] [address] Jan, [facility] [place] [facility] [address] [id number] [place] [address] Jan, [facility] [place] [facility] [address] [id number] [place] [address] Jan, [facility] [place] [facility] [address] [id number] [place] [address] Jan, [facility] [place] [facility] [address] [id number] [place] [address] Jan, [facility] [place] [facility] [address] [id number] [place] [address] Jan, [facility] [place] [facility] [address] [id number] [place] [address] Dec, [facility] [place] [facility] [address] [id number] [place] [address] Dec, [facility] [place] [facility] [address] [id number] [place] [address] Dec, [facility] [place] [facility] [address] [id number] [place] [address] Dec, [facility] [place] [facility] [address] [id number] [place] [address] Dec, [facility] [place] [facility] [address] [id number] [place] [address] Dec, [facility] [place] [facility] [address] [id number] [place] [address] Nov, [facility] [place] [facility] [address] [id number] [place] [address] Nov, [facility] [place] [facility] [address] [id number] [place] [address] Oct, [facility] [place] [facility] [address] [id number] [place] [address] Oct, [facility] [place] [facility] [address] [id number] [place] [address] Oct, [facility] [place] [facility] [address] [id number] [place] [address] Oct, [facility] [place] [facility] [address] [id number] [place] [address] Sep, [facility] [place] [facility] [address] [id number] [place] [address] Sep, [facility] [place] [facility] [address] [id number] [place] [address] Aug, [facility] [place] [facility] [address] [id number] [place] [address] Aug, [facility] [place] [facility] [address] [id number] [place] [address] Aug, [facility] [place] [facility] [address] [id number] [place] [address] Aug, [facility] [place] [facility] [address] [id number], [place] [address] Aug, [facility] [place] [facility] [address] [id number] [place] [address] Aug, [facility] [place] [facility] [address] [id number] [place] [address] Jul, [facility] [place] [facility] [address] [id number] [place] [address] Jul, [facility] [place] [facility] [address] [id number] [place] [address] 16 Jun, 2011 [facility] [address] [id number] [place] [address] June, [facility] [place] [facility] [address] [id number] [place] [address] May, [facility] [place] [facility] [address] [id number] [place] [address] May, [facility] [place] [facility] [address] [id number] [place] [address] May, [facility] [place] [facility] [address] [id number] [place] [address] May, [facility] [place] [facility] [address] [id number] [place] [address] Apr, [facility] [address] [id number] [place] [address] 15 Apr, 2011 [facility] [place] [facility] [address] [id number] [place] [address] Apr, [facility] [place] [facility] [address] [id number] [place] [address] Apr, [facility] [place] [facility] [address] [id number] [place] [address] Mar, [facility] [place] [facility] [address] [id number] [place] [address] Mar, [facility] [place] [facility] [address] [id number] [place] [address] Feb, [facility] [place] [facility] [address] [id number] [place] [address] Feb, [facility] [place] [facility] [address] [id number] [place] [address] Feb, [facility] [place] [facility] [address] [id number] [place] [address] Feb, [facility] [address] [facility] [id number], [place] [address] Feb, [facility] [address], [place] [address] Jan, [facility] [address], [place] [address] Dec, [facility] [address], [place] [address] Dec, [facility] [address] [facility] [id number], [place] [address] Dec, [facility] [address], [place] [address] Nov, [facility] [address], [place] [address] Nov, [facility] [address], [place] [address] Aug, [facility] [address], [place] [address] Jan, [facility] [address], [place] [address] Dec, [facility] [id number] [address] Nov, [facility] [id number] [address] Jan, [facility] [id number] [address] Jan, IMMUNIZATIONS No Known Immunizations SOCIAL HISTORY Never Assessed REASON FOR VISIT Requests return call PLAN OF CARE VITAL SIGNS MEDICATIONS Unknown [...] breast Surgical History x 3 Hospitalization History [facility] for [facility] surgery Hospitalization History lt breast surgery(cancer)
--- OUTSIDE RECORDS SUMMARY | 2018-07-20 06:25 | XMS REPORT ---
Author Author AVERY NITISHEDWINA Sandy [facility] Address [address] [place] [address] Care Team Providers [employer] Platform Supervisor Name Role Phone AARON VARELAWELL Unavailable PROBLEMS Type Condition ICD9-CM Code PAI81-NX Code Onset Dates Condition Status SNOMED Code Problem Other chronic pain G89.29 Active 61689879 Problem Open wound of right foot, initial encounter S91.301A Active [id number] Problem Arthritis M19.90 Active 2908727 Problem Osteoarthritis M19.90 Active 375162847 Problem Major depression F32.9 Active 176297888 Problem Essential hypertension I10 Active 33605326 Problem GERD (gastroesophageal reflux disease) K21.9 Active 041275343 Problem Insomnia G47.00 Active 298556694 Problem Breast cancer C50.919 Active 476696807 Problem Spinal stenosis M48.00 Active 21493748 Problem Migraine G43.909 Active 88360422 Problem Migraine with aura and without status migrainosus, not intractable G43.109 Active 9932774 Problem Anxiety F41.9 Active 95985981 Problem Panic disorder F41.0 Active 153476690 Problem Functional urinary incontinence R39.81 Active 954743682 Problem Hypothyroidism E03.9 Active 85898457 Problem Major depressive disorder, recurrent episode, moderate F33.1 Active 806429348 Problem Borderline personality disorder F60.3 Active 68052385 Problem Morbid (severe) obesity due to excess calories E66.01 Active 632993200 Problem IZABEL on CPAP G47.33 Active 01030323 Problem Type 2 diabetes mellitus E11.9 Active 62029656 Problem Diabetic polyneuropathy associated with type 2 diabetes mellitus E11.42 Active 87466763 ALLERGIES No Information ENCOUNTERS Encounter Location Date Diagnosis [facility] [address] [place] [address] Aug, [address] [address] June, [facility] [address] [place] [address] June, [facility] [address] [place] [address] June, [facility] [address] [place] [address] June, [facility] [address] [place] [address] June, Morbid obesity E66.01 [facility] [address] [place] [address] May, [facility] [address] [place] [address] May, [facility] [address] [place] [address] May, [facility] [address] [place] [address] May, Hypothyroidism E03.9 ; Type 2 diabetes mellitus E11.9 and Morbid obesity E66.01 [facility] [address] [place] [address] May, Morbid obesity E66.01 [facility] [address] [id number], [place] [address] May, Peripheral edema R60.9 [facility] [address] [facility] [id number], [place] [address] May, Peripheral edema R60.9 ; Weight gain R63.5 ; Shortness of breath R06.02 and Morbid obesity E66.01 [facility] [address] [facility] [place] [place] [address] May, Pedal edema R60.0 and Morbid obesity E66.01 [facility] [address] [address] May, [facility] [address] [address] May[facility] [address] [address] May, [facility] [address] [facility] [id number] [place] [address] 30 Apr, 2018 Bilateral lower extremity edema R60.0 ; Morbid obesity E66.01 and Weight gain R63.5 [facility] [address] [place] [address] Apr, [facility] [address] [address] Apr, [facility] [address] [address] Apr, Migraine with aura and without status migrainosus, not intractable G43.109 [facility] [address] [place] [address] Apr, [facility] [address] [address] Apr, [facility] [address] [address] Apr, [facility] [address] [address] Apr, [facility] [address] [address] Apr, [facility] [address] [address] Apr, Type 2 diabetes mellitus E11.9 ; Pain in right knee M25.561 ; Other chronic pain G89.29 ; Pain in right shoulder M25.511 ; Morbid obesity E66.01 and Diabetic polyneuropathy associated with type 2 diabetes mellitus E11.42 [facility] [address] [address] Apr, [facility] [address] [facility] [id number] [place] [address] Apr, [facility] [address] [place] [address] Mar, Open wound of right foot, initial encounter S91.301A and Morbid obesity E66.01 [facility] [address] [place] [address] Mar, Dysuria R30.0 and Painful urination R30.[address] [address] 07 Mar, 2018 Depression, major, recurrent, moderate 296.[address] [place] [address] Mar, [address] [address] Mar, [place] [address], [place] [address] Feb, Dental examination Z01.20 [facility] [address] [place] [id number] [place] [address] Nov, [facility] [id number] [place] [address] Nov, [facility] [address] [address] [id number] [place] [address] 08 Mar, 2015 Major depressive disorder, recurrent episode, moderate F33.1 ; Panic disorder F41.0 and Borderline personality disorder F60.3 [place] [id number] [place] [address] Sep, Depression, major, recurrent, moderate 296.32 ; Agoraphobia with panic disorder 300.21 and Borderline personality disorder 301.83 [facility] [address], [place] [address] Aug, Depression, major, recurrent, moderate 296.32 ; Panic disorder without agoraphobia 300.01 and Borderline personality disorder 301.83 [facility] [address], [place] [address] Jul, Depression, major, recurrent, moderate 296.32 ; Agoraphobia with panic disorder 300.21 and Posttraumatic stress disorder 309.81 [facility] [address], [place] [address] May, [facility] [address] [place] [id number] [place] [address] May, [facility] [address] [facility] [id number] [place] [address] 13 May, 2014 [facility] [place] [facility] [address] [id number] [place] [address] 10 Apr, 2014 [facility] [place] [facility] [address] [id number] [place] [address] 10 Apr, 2014 [facility] [place] [facility] [address] [id number] [place] [address] 05 Apr, 2014 [facility] [place] [facility] [address] [facility] [id number] [place] [address] 05 Apr, 2014 [facility] [place] [facility] [address] [id number] [place] [address] Mar, [facility] [place] [facility] [address] [facility] [id number] [place] [address] Mar, 2014 [facility] [place] [facility] [address] [id number] [place] [address] Mar, [facility] [place] [facility] [address] [facility] [id number] [place] [address] Mar, [facility] [place] [facility] [address] [facility] [id number] [place] [address] Feb, [facility] [place] [facility] [address] [facility] [id number] [place] [address] Feb, [facility] [place] [facility] [address] [id number] [place] [address] Jan, [facility] [place] [facility] [address] [facility] [id number] [place] [address] Jan, [facility] [place] [facility] [address] [facility] [id number] [place] [address] Jan, [facility] [place] [facility] [address] [facility] [id number] [place] [address] 16 Jan, 2014 [facility] [place] [facility] [address] [id number] [place] [id number] Dec, [facility] [place] [facility] [address] [id number] [place] [id number] Dec, [facility] [place] [facility] [address] [id number] [place] [address] Dec, [facility] [place] [facility] [address] [id number] [place] [address] Dec, [facility] [place] [facility] [address] [id number] [place] [address] Dec, [facility] [place] [facility] [address] [id number] [place] [address] Nov, [facility] [place] [facility] [address] [id number] [place] [address] Nov, [facility] [place] [facility] [address] [id number] [place] [address] Nov, [facility] [place] [facility] [address] [id number] [place] [address] Nov, [facility] [place] [facility] [address] [id number] [place] [address] Nov, [facility] [place] [facility] [address] [id number] [place] [address] Nov, [facility] [place] [facility] [address] [id number], [place] [address] Nov, [facility] [place] [facility] [address] [id number], [place] [address] Nov, [facility] [place] [facility] [address] [id number] [place] [address] Oct, [facility] [place] [facility] [address] [id number] [place] [address] Oct, [facility] [place] [facility] [address] [id number] [place] [address] Sep, [facility] [place] [facility] [address] [id number] [place] [address] Sep, [facility] [place] [facility] [address] [id number] [place] [address] Sep, [facility] [place] [facility] [address] [id number] [place] [address] Sep, [facility] [place] [facility] [address] [id number] [place] [address] Sep, [facility] [place] [facility] [address] [id number] [place] [address] Sep, [facility] [place] [facility] [address] [id number] [place] [address] Jul, [facility] [place] [facility] [address] [id number] [place] [address] Jul, [facility] [place] [facility] [address] [id number] [place] [address] June, [facility] [place] [facility] [address] [id number] [place] [address] June, [facility] [place] [facility] [address] [id number] [place] [address] June, [facility] [place] [facility] [address] [id number] [place] [address] June, [facility] [place] [facility] [address] [id number] [place] [address] May, [facility] [place] [facility] [address] [id number] [place] [address] May, [facility] [place] [facility] [address] [id number] [place] [address] May, [facility] [place] [facility] [address] [id number] [place] [address] May, [facility] [place] [facility] [address] [id number] [place] [address] Apr, [facility] [place] [facility] [address] [id number] [place] [address] Apr, [facility] [place] [facility] [address] [id number] [place] [address] Mar, [facility] [place] [facility] [address] [id number] [place] [address] Mar, [facility] [place] [facility] [address] [id number] [place] [address] Feb, [facility] [place] [facility] [address] [id number] [place] [address] Feb, [facility] [place] [facility] [address] [id number] [place] [address] Feb, [facility] [place] [facility] [address] [id number] [place] [address] Feb, [facility] [place] [facility] [address] [id number] [place] [address] Dec, [facility] [place] [facility] [address] [id number] [place] [address] Dec, [facility] [place] [facility] [address] [id number] [place] [address] Dec, [facility] [place] [facility] [address] [id number] [place] [address] Dec, [facility] [place] [facility] [address] [id number], [place] [address] Nov, [facility] [place] [facility] [address] [id number] [place] [address] Nov, [facility] [place] [facility] [address] [id number] [place] [address] 16 Nov, 2012 [facility] [place] [facility] [address] [id number] [place] [address] 16 Nov, 2012 [facility] [place] [facility] [address] [id number] [place] [address] 23 Oct, 2012 [facility] [address] [id number] [place] [address] 16 Oct, 2012 [facility] [place] [facility] [address] [id number] [place] [address] 10 Oct, 2012 [facility] [place] [facility] [address] [id number] [place] [address] Oct, [facility] [place] [facility] [address] [id number] [place] [address] 31 Aug, 2012 [facility] [place] [facility] [address] [id number] [place] [address] Aug, [facility] [place] [facility] [address] [id number] [place] [address] Aug, [facility] [place] [facility] [address] [id number] [place] [address] Aug, [facility] [place] [facility] [address] [id number] [place] [address] Aug, [facility] [place] [facility] [address] [id number] [place] [address] Jul, [facility] [place] [facility] [address] [id number] [place] [address] June, [facility] [place] [facility] [address] [id number] [place] [address] May, [facility] [place] [facility] [address] [id number] [place] [address] 14 Apr, 2012 [facility] [place] [facility] [address] [id number] [place] [address] 13 Mar, 2012 [facility] [place] [facility] [address] [id number] [place] [address] 11 Mar, 2012 [facility] [place] [facility] [address] [id number] [place] [address] Jan, [facility] [place] [facility] [address] [id number] [place] [address] Jan, [facility] [place] [facility] [address] [id number] [place] [address] Jan, [facility] [place] [facility] [address] [id number] [place] [address] Jan, [facility] [place] [facility] [address] [id number] [place] [address] Jan, [facility] [place] [facility] [address] [id number] [place] [address] Jan, [facility] [place] [facility] [address] [id number] [place] [address] Jan, [facility] [place] [facility] [address] [id number] [place] [address] Jan, [facility] [place] [facility] [address] [id number] [place] [address] Jan, [facility] [place] [facility] [address] [id number] [place] [address] Jan, [facility] [place] [facility] [address] [id number] [place] [address] Dec, [facility] [place] [facility] [address] [id number] [place] [address] Dec, [facility] [place] [facility] [address] [id number] [place] [address] Dec, [facility] [place] [facility] [address] [id number] [place] [address] Dec, [facility] [place] [facility] [address] [id number] [place] [address] Dec, [facility] [place] [facility] [address] [id number] [place] [address] Dec, [facility] [place] [facility] [address] [id number] [place] [address] Nov, [facility] [place] [facility] [address] [id number] [place] [address] Nov, [facility] [place] [facility] [address] [id number] [place] [address] Oct, [facility] [place] [facility] [address] [id number] [place] [address] Oct, [facility] [place] [facility] [address] [id number] [place] [address] Oct, [facility] [place] [facility] [address] [id number] [place] [address] Oct, [facility] [place] [facility] [address] [id number] [place] [address] Sep, [facility] [place] [facility] [address] [id number] [place] [address] Sep, [facility] [place] [facility] [address] [id number] [place] [address] Aug, [facility] [place] [facility] [address] [id number] [place] [address] Aug, [facility] [place] [facility] [address] [id number] [place] [address] Aug, [facility] [place] [facility] [address] [id number] [place] [address] Aug, [facility] [place] [facility] [address] [id number], [place] [address] Aug, [facility] [place] [facility] [address] [id number] [place] [address] Aug, [facility] [place] [facility] [address] [id number] [place] [address] Jul, [facility] [place] [facility] [address] [id number] [place] [address] Jul, [facility] [place] [facility] [address] [id number] [place] [address] 16 Jun, 2011 [facility] [address] [id number] [place] [address] June, [facility] [place] [facility] [address] [id number] [place] [address] May, [facility] [place] [facility] [address] [id number] [place] [address] May, [facility] [place] [facility] [address] [id number] [place] [address] May, [facility] [place] [facility] [address] [id number] [place] [address] May, [facility] [place] [facility] [address] [id number] [place] [address] Apr, [facility] [address] [id number] [place] [address] 15 Apr, 2011 [facility] [place] [facility] [address] [id number] [place] [address] Apr, [facility] [place] [facility] [address] [id number] [place] [address] Apr, [facility] [place] [facility] [address] [id number] [place] [address] Mar, [facility] [place] [facility] [address] [id number] [place] [address] Mar, [facility] [place] [facility] [address] [id number] [place] [address] Feb, [facility] [place] [facility] [address] [id number] [place] [address] Feb, [facility] [place] [facility] [address] [id number] [place] [address] Feb, [facility] [place] [facility] [address] [id number] [place] [address] Feb, [facility] [address] [facility] [id number], [place] [address] Feb, [facility] [address], [place] [address] Jan, [facility] [address] [facility] [id number], [place] [address] Dec, [facility] [address], [place] [address] Dec, [facility] [address] [facility] [id number], [place] [address] Dec, [facility] [address], [place] [address] Nov, [facility] [address], [place] [address] Nov, [facility] [address], [place] [address] Aug, [facility] [address], [place] [address] Jan, [facility] [address], [place] [address] Dec, [facility] [id number], [place] [address] Nov, [facility] [id number], [place] [address] Jan, [facility] [id number], [place] [address] Jan, IMMUNIZATIONS No Known Immunizations SOCIAL HISTORY Never Assessed REASON FOR VISIT Request return call PLAN OF CARE VITAL SIGNS [...] breast Surgical History x 3 Hospitalization History [facility] for back surgery Hospitalization History lt breast surgery(cancer)
--- OUTSIDE RECORDS SUMMARY | 2018-07-20 06:26 | XMS REPORT ---
Author Author Migration, Doctor Organization [facility] Address Unknown Phone Unavailable Care Team Providers Care Mold Stacker Name Role Phone Migration, Doctor Unavailable Unavailable PROBLEMS Type Condition ICD9-CM Code OHQ62-NT Code Onset Dates Condition Status SNOMED Code Problem Other chronic pain G89.29 Active 80882928 Problem Open wound of right foot, initial encounter S91.301A Active 94913027695412860 Problem Arthritis M19.90 Active 1254133 Problem Osteoarthritis M19.90 Active 231109826 Problem Major depression F32.9 Active 715074798 Problem Essential hypertension I10 Active 43884963 Problem GERD (gastroesophageal reflux disease) K21.9 Active 142954624 Problem Insomnia G47.00 Active 870571701 Problem Breast cancer C50.919 Active 976597274 Problem Spinal stenosis M48.00 Active 56740652 Problem Migraine G43.909 Active 51497982 Problem Migraine with aura and without status migrainosus, not intractable G43.109 Active 5873679 Problem Anxiety F41.9 Active 58873664 Problem Panic disorder F41.0 Active 136625377 Problem Functional urinary incontinence R39.81 Active 304770235 Problem Hypothyroidism E03.9 Active 86551398 Problem Major depressive disorder, recurrent episode, moderate F33.1 Active 955709870 Problem Borderline personality disorder F60.3 Active 67010307 Problem Morbid (severe) obesity due to excess calories E66.01 Active 671720225 Problem IZABEL on CPAP G47.33 Active 20418149 Problem Type 2 diabetes mellitus E11.9 Active 36341348 Problem Diabetic polyneuropathy associated with type 2 diabetes mellitus E11.42 Active 04246628 ALLERGIES No Information ENCOUNTERS Encounter Location Date Diagnosis [address] [address] Aug, [address] [address] May, [address] [address] May, [facility] [address] [address] May, [address] [address] May, Hypothyroidism E03.9 ; Type 2 diabetes mellitus E11.9 and Morbid obesity E66.[address] [address] May, Morbid obesity E66.01 [facility] [address] [facility] [id number] [address] May, Peripheral edema R60.9 [facility] [address] [facility] [id number] [place] [address] May, Peripheral edema R60.9 ; Weight gain R63.5 ; Shortness of breath R06.02 and Morbid obesity E66.01 [facility] [address] [facility] [place] [address] May, Pedal edema R60.0 and Morbid obesity E66.[address] [address] May, [address] [address] May, [address] [address] May, [facility] [address] [facility] [facility] [id number] [place] [address] Apr, Bilateral lower extremity edema R60.0 ; Morbid obesity E66.01 and Weight gain R63.5 [facility] [address] [address] Apr, [address] [address] Apr, [address] [address] Apr, Migraine with aura and without status migrainosus, not intractable G43.[address] [address] Apr, [facility] [address] [address] Apr, [facility] [address] [address] Apr, [facility] [address] [address] Apr, [facility] [address] [address] Apr, [facility] [address] [address] Apr, Type 2 diabetes mellitus E11.9 ; Pain in right knee M25.561 ; Other chronic pain G89.29 ; Pain in right shoulder M25.511 ; Morbid obesity E66.01 and Diabetic polyneuropathy associated with type 2 diabetes mellitus E11.42 [facility] [address] [address] Apr, [facility] [id number] [place] [address] Apr, [facility] [address] [place] [address] Mar, Open wound of right foot, initial encounter S91.301A and Morbid obesity E66.01 [facility] [address] [place] [address] Mar, Dysuria R30.0 and Painful urination R30.9 [facility] [address] [address] Mar, Depression, major, recurrent, moderate 296.32 [facility] [address] [address] Mar, [facility] [address] [address] Mar, [facility] [id number] [place] [address] Feb, Dental examination Z01.20 [facility] [address] [address] Nov, [facility] [address] [address] Nov, [facility] [id number] [place] [address] Mar, Major depressive disorder, recurrent episode, moderate F33.1 ; Panic disorder F41.0 and Borderline personality disorder F60.3 [facility] [id number] [place] [address] Sep, Depression, major, recurrent, moderate 296.32 ; Agoraphobia with panic disorder 300.21 and Borderline personality disorder 301.83 [facility] [id number] [place] [address] Aug, Depression, major, recurrent, moderate 296.32 ; Panic disorder without agoraphobia 300.01 and Borderline personality disorder 301.83 [facility] [id number] [place] [address] Jul, Depression, major, recurrent, moderate 296.32 ; Agoraphobia with panic disorder 300.21 and Posttraumatic stress disorder 309.81 [facility] [id number] [place] [address] 30 May, 2014 [facility] [id number] [place] [address] May, [facility] [address] [address] May, [facility] [id number] [place] [address] Apr, [facility] [id number] [place] [address] Apr, [facility] [id number] [place] [address] 05 Apr, 2014 [facility] [address] [address] Apr, [facility] [id number] [address] 16 Mar, 2014 [facility] [place] [facility] [address] [id number] [place] [address] Mar, 2014 [facility] [place] [facility] [address] [id number] [place] [address] Mar, 2014 [facility] [place] [facility] [address] [id number] [place] [address] Mar, [facility] [place] [facility] [address] [id number] [place] [address] Feb, [facility] [place] [facility] [address] [id number] [place] [address] Feb, [facility] [place] [facility] [address] [id number] [place] [address] Jan, [facility] [place] [facility] [address] [id number] [place] [address] Jan, [facility] [place] [facility] [address] [id number] [place] [address] Jan, [facility] [place] [facility] [address] [id number] [place] [address] Jan, [facility] [place] [facility] [address] [id number] Dec, [facility] [place] [facility] [address] [address] Dec, [facility] [place] [facility] [address] [id number] [address] Dec, [facility] [place] [facility] [address] [facility] [id number] [place] [address] Dec, [facility] [place] [facility] [address] [id number] [place] [address] Dec, [facility] [place] [facility] [address] [facility] [id number] [place] [address] Nov, [facility] [place] [facility] [address] [id number] [place] [address] Nov, [facility] [place] [facility] [address] [id number] [place] [address] Nov, [facility] [place] [facility] [address] [id number] [place] [address] Nov, [facility] [place] [facility] [address] [id number] [place] [address] Nov, [facility] [place] [facility] [address] [id number] [place] [address] Nov, [facility] [place] [facility] [address] [id number] [place] [address] Nov, [facility] [place] [facility] [address] [id number] [place] [address] Nov, [facility] [place] [facility] [address] [id number] [place] [address] Oct, [facility] [place] [facility] [address] [id number] [place] [address] Oct, [facility] [place] [facility] [address] [id number] [place] [address] Sep, [facility] [place] [facility] [address] [id number] [place] [address] Sep, [facility] [place] [facility] [address] [id number] [place] [address] Sep, [facility] [place] [facility] [address] [id number] [place] [address] Sep, [facility] [place] [facility] [address] [id number] [place] [address] Sep, [facility] [place] [facility] [address] [id number] [place] [address] Sep, [facility] [place] [facility] [address] [id number] [place] [address] Jul, [facility] [address] [id number] [place] [address] Jul, [facility] [place] [facility] [address] [id number] [place] [address] June, [facility] [address] [id number] [place] [address] June, [facility] [place] [facility] [address] [id number] [place] [address] June, [facility] [place] [facility] [address] [id number] [place] [address] June, [facility] [place] [facility] [address] [id number] [place] [address] May, [facility] [address] [id number] [place] [address] May, [facility] [place] [facility] [address] [id number] [place] [address] May, [facility] [place] [facility] [address] [id number] [place] [address] May, [facility] [place] [facility] [address] [id number] [place] [address] Apr, [facility] [place] [facility] [address] [id number] [place] [address] Apr, [facility] [place] [facility] [address] [id number] [place] [address] Mar, [facility] [place] [facility] [address] [id number] [place] [address] Mar, [facility] [place] [facility] [address] [id number] [place] [address] Feb, [facility] [place] [facility] [address] [id number] [place] [address] Feb, [facility] [place] [facility] [address] [id number] [place] [address] Feb, [facility] [place] [facility] [address] [id number] [place] [address] Feb, [facility] [place] [facility] [address] [id number] [place] [address] Dec, [facility] [place] [facility] [address] [id number] [place] [address] Dec, [facility] [place] [facility] [address] [id number] [place] [address] Dec, [facility] [place] [facility] [address] [id number] [place] [address] Dec, [facility] [place] [facility] [address] [id number] [place] [address] Nov, [facility] [place] [facility] [address] [id number] [place] [address] Nov, [facility] [place] [facility] [address] [id number] [place] [address] Nov, [facility] [place] [facility] [address] [id number] [place] [address] Nov, [facility] [place] [facility] [address] [id number] [place] [address] 23 Oct, 2012 [facility] [place] [facility] [address] [id number] [place] [address] 16 Oct, 2012 [facility] [place] [facility] [address] [id number] [place] [address] 10 Oct, 2012 [facility] [place] [facility] [address] [id number] [place] [address] 03 Oct, 2012 [facility] [place] [facility] [address] [id number] [place] [address] 31 Aug, 2012 [facility] [place] [facility] [address] [id number] [place] [address] Aug, [facility] [address] [id number] [place] [address] Aug, [facility] [address] [id number] [place] [address] Aug, [facility] [address] [id number] [place] [address] Aug, [facility] [place] [facility] [address] [id number] [place] [address] Jul, [facility] [address] [id number] [place] [address] June, [facility] [address] [id number] [place] [address] May, [facility] [address] [id number] [place] [address] Apr, [facility] [address] [id number] [place] [address] Mar, [facility] [address] [id number] [place] [address] Mar, [facility] [address] [id number] [place] [address] Jan, [facility] [address] [id number] [place] [address] Jan, [facility] [place] [facility] [address] [id number] [place] [address] Jan, [facility] [place] [facility] [address] [id number] [place] [address] Jan, [facility] [place] [facility] [address] [id number] [place] [address] Jan, [facility] [place] [facility] [address] [id number] [place] [address] Jan, [facility] [place] [facility] [address] [id number] [place] [address] Jan, [facility] [address] [id number] [place] [address] Jan, [facility] [place] [facility] [address] [id number] [place] [address] Jan, [facility] [address] [id number] [place] [address] Jan, [facility] [place] [facility] [address] [id number] [place] [address] Dec, [facility] [address] [id number] [place] [address] Dec, [facility] [place] [facility] [address] [id number] [place] [address] Dec, [facility] [place] [facility] [address] [id number] [place] [address] Dec, [facility] [address] [id number] [place] [address] Dec, [facility] [place] [facility] [address] [id number] [place] [address] Dec, [facility] [address] [facility] [id number] [place] [address] Nov, [facility] [place] [facility] [address] [id number] [place] [address] Nov, [facility] [place] [facility] [address] [id number] [place] [address] 24 Oct, 2011 [facility] [place] [facility] [address] [id number] [place] [address] 24 Oct, 2011 [facility] [place] [facility] [address] [id number] [place] [address] 24 Oct, 2011 [facility] [place] [facility] [address] [id number] [place] [address] Oct, [facility] [place] [facility] [address] [id number] [place] [address] Sep, [facility] [place] [facility] [address] [id number] [place] [address] Sep, [facility] [place] [facility] [address] [id number] [place] [address] Aug, [facility] [place] [facility] [address] [id number] [place] [address] Aug, [facility] [place] [facility] [address] [id number] [place] [address] Aug, [facility] [place] [facility] [address] [id number] [place] [address] Aug, [facility] [place] [facility] [address] [id number] [place] [address] Aug, [facility] [place] [facility] [address] [id number] [place] [address] Aug, [facility] [place] [facility] [address] [id number] [place] [address] Jul, [facility] [place] [facility] [address] [id number] [place] [address] Jul, [facility] [place] [facility] [address] [id number] [place] [address] June, [facility] [place] [facility] [address] [id number] [place] [address] June, [facility] [place] [facility] [address] [id number] [place] [address] May, [facility] [place] [facility] [address] [id number] [place] [address] May, [facility] [place] [facility] [address] [id number] [place] [address] May, [facility] [place] [facility] [address] [id number] [address] May, [facility] [address] [id number] [place] [address] Apr, [facility] [place] [facility] [address] [id number] [place] [address] Apr, [facility] [address] [id number] [place] [address] Apr, [facility] [place] [facility] [address] [id number] [place] [address] Apr, [facility] [address] [id number] [place] [address] Mar, [facility] [place] [facility] [address] [id number] [place] [address] Mar, [facility] [address] [facility] [facility] [id number] [place] [address] Feb, [facility] [address] [id number] [place] [address] Feb, [facility] [address] [id number] [place] [address] Feb, [facility] [address] [facility] [facility] [id number] [place] [address] Feb, [facility] [address] [id number] [place] [address] Feb, [facility] [place] [facility] [address] [id number] [place] [address] Jan, [facility] [place] [facility] [address] [id number] [place] [address] Dec, [facility] [place] [facility] [address] [id number] [place] [address] Dec, [facility] [place] [facility] [address] [facility] [id number] [place] [address] Dec, [facility] [place] [facility] [id number] [address] Nov, [facility] [address] [id number] [address] Nov, [facility] [address] [facility] [id number] [address] Aug, [facility] [address] [address] Jan, [facility] [address] [address] Dec, [facility] [address] [address] Nov, [facility] [address] [address] Jan, [facility] [address] [address] Jan, IMMUNIZATIONS No Known Immunizations SOCIAL HISTORY Never Assessed REASON FOR VISIT EMR-[facility] [place] PLAN OF CARE VITAL SIGNS MEDICATIONS Unknown [...] breast Surgical History x 3 [facility] Hospitalization History [place] breast surgery(cancer)
--- OUTSIDE RECORDS SUMMARY | 2018-07-20 06:26 | XMS REPORT ---
Author Author AVERY NITISHEDWINA Sandy [facility] Address [address] [place] [address] Care Team Providers Care Machine Burrer Name Role Phone AARON VARELAWELL Unavailable PROBLEMS Type Condition ICD9-CM Code EAA24-FQ Code Onset Dates Condition Status SNOMED Code Problem Other chronic pain G89.29 Active 33566981 Problem Open wound of right foot, initial encounter S91.301A Active [id number] Problem Arthritis M19.90 Active 5220428 Problem Osteoarthritis M19.90 Active 790993541 Problem Major depression F32.9 Active 316699571 Problem Essential hypertension I10 Active 46485567 Problem GERD (gastroesophageal reflux disease) K21.9 Active 571329888 Problem Insomnia G47.00 Active 595443366 Problem Breast cancer C50.919 Active 205719356 Problem Spinal stenosis M48.00 Active 34991842 Problem Migraine G43.909 Active 89881187 Problem Migraine with aura and without status migrainosus, not intractable G43.109 Active 4579735 Problem Anxiety F41.9 Active 95160433 Problem Panic disorder F41.0 Active 909284722 Problem Functional urinary incontinence R39.81 Active 520386541 Problem Hypothyroidism E03.9 Active 51989899 Problem Major depressive disorder, recurrent episode, moderate F33.1 Active 059255420 Problem Borderline personality disorder F60.3 Active 64979000 Problem Morbid (severe) obesity due to excess calories E66.01 Active 662079797 Problem IZABEL on CPAP G47.33 Active 14594788 Problem Type 2 diabetes mellitus E11.9 Active 06752532 Problem Diabetic polyneuropathy associated with type 2 diabetes mellitus E11.42 Active [id number] ALLERGIES No Information ENCOUNTERS Encounter Location Date Diagnosis [facility] [address] [place] [address] Aug, [address] [address] June, [facility] [address] [place] [address] June, [facility] [address] [place] [address] June, [facility] [address] [address] June, Morbid obesity E66.01 [facility] [address] [place] [address] May, [facility] [address] [place] [address] May, [facility] [address] [place] [address] May, [facility] [address] [place] [address] May, Hypothyroidism E03.9 ; Type 2 diabetes mellitus E11.9 and Morbid obesity E66.01 [facility] [address] [address] May, Morbid obesity E66.01 [facility] [address] [facility] [id number] [address] May, Peripheral edema R60.9 [facility] [address] [facility] [id number] [place] [address] May, Peripheral edema R60.9 ; Weight gain R63.5 ; Shortness of breath R06.02 and Morbid obesity E66.01 [facility] [address] [place] [address] May, Pedal edema R60.0 and Morbid obesity E66.01 [facility] [address] [address] May, [facility] [address] [address] May, [facility] [address] [address] May, [facility] IN [facility] [address] [facility] [id number] [address] Apr, Bilateral lower extremity edema R60.0 ; Morbid obesity E66.01 and Weight gain R63.5 [facility] [address] [address] Apr, [facility] [address] [address] Apr, [facility] [address] [address] Apr, Migraine with aura and without status migrainosus, not intractable G43.109 [facility] [address] [address] Apr, [facility] [address] [address] Apr, [facility] [address] [address] Apr, [facility] [address] [address] Apr, [facility] [address] [address] Apr, [facility] [address] [address] Apr, Type 2 diabetes mellitus E11.9 ; Pain in right knee M25.561 ; Other chronic pain G89.29 ; Pain in right shoulder M25.511 ; Morbid obesity E66.01 and Diabetic polyneuropathy associated with type 2 diabetes mellitus E11.42 [facility] [address] [address] Apr, [facility] [place] [facility] [address] [facility] [id number] [address] Apr, [facility] [address] [place] [address] Mar, Open wound of right foot, initial encounter S91.301A and Morbid obesity E66.01 [facility] [address] [place] [address] Mar, Dysuria R30.0 and Painful urination R30.9 [facility] [address] [address] Mar, Depression, major, recurrent, moderate 296.32 [facility] [address] [place] [address] Mar, [address] [address] Mar, [facility] [address] [address] Feb, Dental examination Z01.20 [facility] [address], [place] [address] Nov, [facility] [address] [address] Nov, [facility] [id number] [place] [address] 08 Mar, 2015 Major depressive disorder, recurrent episode, moderate F33.1 ; Panic disorder F41.0 and Borderline personality disorder F60.3 [facility] [address] [address] Sep, Depression, major, recurrent, moderate 296.32 ; Agoraphobia with panic disorder 300.21 and Borderline personality disorder 301.83 [facility] [address] [address] Aug, Depression, major, recurrent, moderate 296.32 ; Panic disorder without agoraphobia 300.01 and Borderline personality disorder 301.83 [facility] [address] [address] Jul, Depression, major, recurrent, moderate 296.32 ; Agoraphobia with panic disorder 300.21 and Posttraumatic stress disorder 309.81 [facility] [address], [place] [address] May, [facility] [address], [place] [address] May, [facility] [address], [place] [address] May, [facility] [place] [facility] [address] [id number] [place] [address] Apr, [facility] [place] [facility] [address] [id number] [place] [address] Apr, [facility] [place] [facility] [address] [id number] [place] [address] Apr, [facility] [place] [facility] [address] [id number] [place] [address] Apr, [facility] [place] [facility] [address] [id number] [place] [address] Mar, [facility] [place] [facility] [address] [id number] [place] [address] Mar, 2014 [facility] [place] [facility] [address] [id number] [place] [address] Mar, [facility] [place] [facility] [address] [id number] [place] [address] Mar, [facility] [place] [facility] [address] [id number] [place] [address] Feb, [facility] [place] [facility] [address] [facility] [id number] [place] [address] Feb, [facility] [place] [facility] [address] [id number], [place] [address] Jan, [facility] [place] [facility] [address] [id number], [place] [address] Jan, [facility] [place] [facility] [address] [id number] [place] [address] Jan, [facility] [place] [facility] [address] [id number] [place] [address] Jan, [facility] [place] [facility] [address] [id number] [id number] 18 Dec, 2013 [facility] [place] [facility] [address] [id number] [address] Dec, [facility] [place] [facility] [address] [id number] [place] [address] Dec, [facility] [place] [facility] [address] [id number] [place] [address] Dec, [facility] [place] [facility] [address] [id number] [place] [address] Dec, [facility] [place] [facility] [address] [id number] [place] [address] Nov, [facility] [place] [facility] [address] [id number] [place] [address] Nov, [facility] [place] [facility] [address] [id number] [place] [address] Nov, [facility] [place] [facility] [address] [id number] [place] [address] Nov, [facility] [place] [facility] [address] [id number] [place] [address] Nov, [facility] [place] [facility] [address] [id number] [place] [address] Nov, [facility] [place] [facility] [address] [id number] [place] [address] Nov, [facility] [place] [facility] [address] [id number] [place] [address] Nov, [facility] [place] [facility] [address] [id number] [place] [address] Oct, [facility] [place] [facility] [address] [id number] [place] [address] Oct, [facility] [place] [facility] [address] [id number] [place] [address] Sep, [facility] [place] [facility] [address] [id number] [place] [address] Sep, [facility] [place] [facility] [address] [id number] [place] [address] Sep, [facility] [address] [id number] [place] [address] Sep, [facility] [place] [facility] [address] [id number] [place] [address] Sep, [facility] [address] [id number] [place] [address] Sep, [facility] [place] [facility] [address] [id number] [place] [address] Jul, [facility] [place] [facility] [address] [id number] [place] [address] Jul, [facility] [place] [facility] [address] [id number] [place] [address] June, [facility] [place] [facility] [address] [id number] [place] [address] June, [facility] [address] [id number] [place] [address] June, [facility] [place] [facility] [address] [id number] [place] [address] June, [facility] [address] [id number] [place] [address] May, [facility] [place] [facility] [address] [id number] [place] [address] May, [facility] [place] [facility] [address] [id number] [place] [address] May, [facility] [place] [facility] [address] [id number] [place] [address] May, [facility] [place] [facility] [address] [id number] [place] [address] Apr, [facility] [place] [facility] [address] [id number] [place] [address] Apr, [facility] [address] [id number] [place] [address] Mar, [facility] [place] [facility] [address] [id number] [place] [address] Mar, [facility] [place] [facility] [address] [id number] [place] [address] Feb, [facility] [place] [facility] [address] [id number] [place] [address] Feb, [facility] [place] [facility] [address] [id number] [place] [address] Feb, [facility] [place] [facility] [address] [id number] [address] Feb, [facility] [place] [facility] [address] [id number] [place] [address] Dec, [facility] [place] [facility] [address] [id number][place] [address] Dec, [facility] [place] [facility] [address] [id number][place] [address] Dec, [facility] [place] [facility] [address] [id number], [place] [address] Dec, [facility] [place] [facility] [address] [id number][place] [address] Nov, [facility] [place] [facility] [address] [id number][place] [address] Nov, [facility] [place] [facility] [address] [id number], [place] [address] Nov, [facility] [place] [facility] [address] [id number], [place] [address] Nov, [facility] [place] [facility] [address] [id number][place] [address] Oct, [facility] [place] [facility] [address] [id number] [place] [address] 16 Oct, 2012 [facility] [address] [id number] [place] [address] 10 Oct, 2012 [facility] [place] [facility] [address] [id number] [place] [address] 03 Oct, 2012 [facility] [address] [id number] [place] [address] Aug, [facility] [place] [facility] [address] [id number] [place] [address] Aug, [facility] [address] [id number] [place] [address] Aug, [facility] [place] [facility] [address] [id number] [place] [address] Aug, [facility] [address] [id number] [place] [address] Aug, [facility] [place] [facility] [address] [id number] [place] [address] Jul, [facility] [address] [id number] [place] [address] June, [facility] [address] [id number] [place] [address] May, [facility] [address] [id number] [place] [address] 14 Apr, 2012 [facility] [place] [facility] [address] [id number] [place] [address] Mar, [facility] [place] [facility] [address] [id number] [place] [address] Mar, [facility] [place] [facility] [address] [id number] [place] [address] Jan, [facility] [place] [facility] [address] [id number] [place] [address] Jan, [facility] [place] [facility] [address] [id number] [place] [address] Jan, [facility] [place] [facility] [address] [id number] [place] [address] Jan, [facility] [place] [facility] [address] [id number] [place] [address] Jan, [facility] [place] [facility] [address] [id number] [place] [address] Jan, [facility] [place] [facility] [address] [id number] [place] [address] Jan, [facility] [place] [facility] [address] [id number] [place] [address] Jan, [facility] [place] [facility] [address] [id number] [place] [address] Jan, [facility] [place] [facility] [address] [id number] [place] [address] Jan, [facility] [place] [facility] [address] [id number] [place] [address] Dec, [facility] [place] [facility] [address] [id number] [place] [address] Dec, [facility] [place] [facility] [address] [id number] [place] [address] Dec, [facility] [place] [facility] [address] [id number] [place] [address] Dec, [facility] [place] [facility] [address] [id number] [place] [address] Dec, [facility] [place] [facility] [address] [id number] [place] [address] Dec, [facility] [place] [facility] [address] [id number] [place] [address] Nov, [facility] [place] [facility] [address] [id number] [place] [address] Nov, [facility] [place] [facility] [address] [id number] [place] [address] Oct, [facility] [place] [facility] [address] [id number] [place] [address] Oct, [facility] [place] [facility] [address] [id number] [place] [address] Oct, [facility] [place] [facility] [address] [id number] [place] [address] Oct, [facility] [place] [facility] [address] [id number] [place] [address] Sep, [facility] [place] [facility] [address] [id number] [place] [address] Sep, [facility] [place] [facility] [address] [id number] [place] [address] Aug, [facility] [place] [facility] [address] [id number] [place] [address] Aug, [facility] [place] [facility] [address] [id number] [place] [address] Aug, [facility] [place] [facility] [address] [id number] [place] [address] Aug, [facility] [place] [facility] [address] [id number] [place] [address] Aug, [facility] [place] [facility] [address] [id number] [place] [address] Aug, [facility] [place] [facility] [address] [id number] [place] [address] Jul, [facility] [place] [facility] [address] [id number] [place] [address] Jul, [facility] [place] [facility] [address] [id number] [place] [address] June, [facility] [place] [facility] [address] [id number] [place] [address] June, [facility] [address] [id number] [place] [address] May, [facility] [address] [id number] [place] [address] May, [facility] [address] [id number] [place] [address] May, [facility] [address] [id number] [place] [address] May, [facility] [address] [id number] [place] [address] Apr, [facility] [address] [id number] [place] [address] Apr, [facility] [address] [id number] [place] [address] Apr, [facility] [address] [id number] [place] [address] Apr, [facility] [address] [id number] [place] [address] Mar, [facility] [address] [id number] [place] [address] Mar, [facility] [address] [id number] [place] [address] Feb, [facility] [address] [id number] [place] [address] Feb, [facility] [place] [facility] [address] [id number] [place] [address] Feb, [facility] [address] [id number] [place] [address] Feb, [facility] [address] [id number] [place] [address] Feb, [facility] [address] [address] Jan, [facility] [address], [place] [address] Dec, [facility] [address], [place] [address] Dec, [facility] [address] [facility] [id number], [place] [address] Dec, [facility] [address], [place] [address] Nov, [facility] [id number] [place] [address] Nov, [facility] [address], [place] [address] Aug, [facility] [address], [place] [address] Jan, [facility] [address], [place] [address] Dec, [facility] [address], [place] [address] Nov, [facility] [id number] [address] Jan, [facility] [id number] [address] Jan, IMMUNIZATIONS No Known Immunizations SOCIAL HISTORY [...]
--- OUTSIDE RECORDS SUMMARY | 2018-07-20 06:27 | XMS REPORT ---
Author Author Migration, Doctor Organization [facility] Address Unknown Phone Unavailable Care Team Providers Care [employer] Name Role Phone Migration, Doctor Unavailable Unavailable PROBLEMS Type Condition ICD9-CM Code EBE57-PT Code Onset Dates Condition Status SNOMED Code Problem Other chronic pain G89.29 Active 44164717 Problem Open wound of right foot, initial encounter S91.301A Active [id number] Problem Arthritis M19.90 Active 3508437 Problem Osteoarthritis M19.90 Active 726535764 Problem Major depression F32.9 Active 379615974 Problem Essential hypertension I10 Active 05754901 Problem GERD (gastroesophageal reflux disease) K21.9 Active 566232930 Problem Insomnia G47.00 Active 674810281 Problem Breast cancer C50.919 Active 059745958 Problem Spinal stenosis M48.00 Active 14231257 Problem Migraine G43.909 Active 86949744 Problem Migraine with aura and without status migrainosus, not intractable G43.109 Active 0807430 Problem Anxiety F41.9 Active 60302757 Problem Panic disorder F41.0 Active 444314646 Problem Functional urinary incontinence R39.81 Active 069319897 Problem Hypothyroidism E03.9 Active 18400971 Problem Major depressive disorder, recurrent episode, moderate F33.1 Active 817676563 Problem Borderline personality disorder F60.3 Active 51232384 Problem Morbid (severe) obesity due to excess calories E66.01 Active 105694942 Problem IZABEL on CPAP G47.33 Active 45403866 Problem Type 2 diabetes mellitus E11.9 Active 02737151 Problem Diabetic polyneuropathy associated with type 2 diabetes mellitus E11.42 Active 57705108 ALLERGIES No Information ENCOUNTERS Encounter Location Date Diagnosis [address] [address] Aug, [address] [address] May, [address] [address] May, [facility] [address] [address] May, [address] [address] May, Hypothyroidism E03.9 ; Type 2 diabetes mellitus E11.9 and Morbid obesity E66.[address] [address] May, Morbid obesity E66.01 [facility] [address] [facility] [id number] [address] May, Peripheral edema R60.9 [facility] [address] [facility] [id number], [place] [address] May, Peripheral edema R60.9 ; Weight gain R63.5 ; Shortness of breath R06.02 and Morbid obesity E66.01 [facility] [address] [facility] [place] [address] May, Pedal edema R60.0 and Morbid obesity E66.[address] [address] May, [address] [address] May, [address] [address] May, [facility] [address] [facility] [id number] [address] Apr, Bilateral lower extremity edema R60.0 ; Morbid obesity E66.01 and Weight gain R63.5 [facility] [address] [address] Apr, [address] [address] Apr, [address] [address] Apr, Migraine with aura and without status migrainosus, not intractable G43.[address] [address] Apr, [facility] [address] [address] Apr, [facility] [address] [address] Apr, [facility] [address] [address] Apr, [facility] [address] [address] Apr, [facility] [address] [address] Apr, Type 2 diabetes mellitus E11.9 ; Pain in right knee M25.561 ; Other chronic pain G89.29 ; Pain in right shoulder M25.511 ; Morbid obesity E66.01 and Diabetic polyneuropathy associated with type 2 diabetes mellitus E11.42 [facility] [address] [address] Apr, [facility] [id number] [place] [address] Apr, [facility] [address] [place] [address] Mar, Open wound of right foot, initial encounter S91.301A and Morbid obesity E66.01 [facility] [address] [place] [address] Mar, Dysuria R30.0 and Painful urination R30.9 [facility] [address] [address] Mar, Depression, major, recurrent, moderate 296.32 [facility] [address] [address] Mar, [facility] [address] [address] Mar, [facility] [id number] [place] [address] Feb, Dental examination Z01.20 [facility] [address] [address] Nov, [facility] [address] [address] Nov, [facility] [id number] [place] [address] Mar, Major depressive disorder, recurrent episode, moderate F33.1 ; Panic disorder F41.0 and Borderline personality disorder F60.3 [facility] [id number] [place] [address] Sep, Depression, major, recurrent, moderate 296.32 ; Agoraphobia with panic disorder 300.21 and Borderline personality disorder 301.83 [facility] [id number] [place] [address] Aug, Depression, major, recurrent, moderate 296.32 ; Panic disorder without agoraphobia 300.01 and Borderline personality disorder 301.83 [facility] [id number] [place] [address] Jul, Depression, major, recurrent, moderate 296.32 ; Agoraphobia with panic disorder 300.21 and Posttraumatic stress disorder 309.81 [facility] [id number] [place] [address] 30 May, 2014 [facility] [id number] [place] [address] May, [facility] [address], [place] [address] May, [facility] [id number] [place] [address] Apr, [facility] [id number] [place] [address] Apr, [facility] [id number] [place] [address] 05 Apr, 2014 [facility] [address], [place] [address] Apr, [facility] [id number] [place] [address] 16 Mar, 2014 [facility] [place] [facility] [address] [id number] [place] [address] Mar, 2014 [facility] [place] [facility] [address] [id number] [place] [address] Mar, 2014 [facility] [place] [facility] [address] [id number] [place] [address] Mar, [facility] [place] [facility] [address] [id number] [place] [address] Feb, [facility] [place] [facility] [address] [id number] [place] [address] Feb, [facility] [place] [facility] [address] [id number] [place] [address] Jan, [facility] [place] [facility] [address] [id number] [place] [address] Jan, [facility] [place] [facility] [address] [id number] [place] [address] Jan, [facility] [place] [facility] [address] [id number] [place] [address] Jan, [facility] [place] [facility] [address] [address] Dec, [facility] [place] [facility] [address] [address] Dec, [facility] [place] [facility] [address] [id number], [place] [address] Dec, [facility] [place] [facility] [address] [facility] [id number] [place] [address] Dec, [facility] [place] [facility] [address] [facility] [id number] [place] [address] Dec, [facility] [place] [facility] [address] [facility] [id number] [place] [address] Nov, [facility] [place] [facility] [address] [id number] [place] [address] Nov, [facility] [place] [facility] [address] [id number] [place] [address] Nov, [facility] [place] [facility] [address] [id number] [place] [address] Nov, [facility] [place] [facility] [address] [id number] [place] [address] Nov, [facility] [place] [facility] [address] [id number] [place] [address] Nov, [facility] [place] [facility] [address] [id number] [place] [address] Nov, [facility] [place] [facility] [address] [id number] [place] [address] Nov, [facility] [place] [facility] [address] [id number] [place] [address] Oct, [facility] [place] [facility] [address] [id number] [place] [address] Oct, [facility] [place] [facility] [address] [id number] [place] [address] Sep, [facility] [place] [facility] [address] [id number] [place] [address] Sep, [facility] [place] [facility] [address] [id number], [place] [address] Sep, [facility] [place] [facility] [address] [id number] [place] [address] Sep, [facility] [place] [facility] [address] [id number] [place] [address] Sep, [facility] [place] [facility] [address] [id number], [place] [address] Sep, [facility] [place] [facility] [address] [id number], [place] [address] Jul, [facility] [address] [id number] [place] [address] Jul, [facility] [place] [facility] [address] [id number] [place] [address] June, [facility] [address] [id number] [place] [address] June, [facility] [place] [facility] [address] [id number] [place] [address] June, [facility] [place] [facility] [address] [id number] [place] [address] June, [facility] [place] [facility] [address] [id number] [place] [address] May, [facility] [address] [id number] [place] [address] May, [facility] [place] [facility] [address] [id number] [place] [address] May, [facility] [place] [facility] [address] [id number] [place] [address] May, [facility] [place] [facility] [address] [id number] [place] [address] Apr, [facility] [place] [facility] [address] [id number] [place] [address] Apr, [facility] [place] [facility] [address] [id number] [place] [address] Mar, [facility] [place] [facility] [address] [id number] [place] [address] Mar, [facility] [place] [facility] [address] [id number] [place] [address] Feb, [facility] [place] [facility] [address] [id number] [place] [address] Feb, [facility] [place] [facility] [address] [id number] [place] [address] Feb, [facility] [place] [facility] [address] [id number] [place] [address] Feb, [facility] [place] [facility] [address] [id number] [place] [address] Dec, [facility] [place] [facility] [address] [id number] [place] [address] Dec, [facility] [place] [facility] [address] [id number] [place] [address] Dec, [facility] [place] [facility] [address] [id number] [place] [address] Dec, [facility] [place] [facility] [address] [id number] [place] [address] Nov, [facility] [place] [facility] [address] [id number] [place] [address] Nov, [facility] [place] [facility] [address] [id number] [place] [address] Nov, [facility] [place] [facility] [address] [id number] [place] [address] Nov, [facility] [place] [facility] [address] [id number] [place] [address] 23 Oct, 2012 [facility] [place] [facility] [address] [id number] [place] [address] 16 Oct, 2012 [facility] [place] [facility] [address] [id number] [place] [address] 10 Oct, 2012 [facility] [place] [facility] [address] [id number] [place] [address] 03 Oct, 2012 [facility] [place] [facility] [address] [id number] [place] [address] 31 Aug, 2012 [facility] [place] [facility] [address] [id number] [place] [address] Aug, [facility] [address] [id number] [place] [address] Aug, [facility] [address] [id number] [place] [address] Aug, [facility] [address] [id number] [place] [address] Aug, [facility] [place] [facility] [address] [id number] [place] [address] Jul, [facility] [address] [id number] [place] [address] June, [facility] [address] [id number] [place] [address] May, [facility] [address] [id number] [place] [address] Apr, [facility] [address] [id number] [place] [address] Mar, [facility] [address] [id number] [place] [address] Mar, [facility] [address] [id number] [place] [address] Jan, [facility] [address] [id number] [place] [address] Jan, [facility] [place] [facility] [address] [id number] [place] [address] Jan, [facility] [place] [facility] [address] [id number] [place] [address] Jan, [facility] [place] [facility] [address] [id number] [place] [address] Jan, [facility] [place] [facility] [address] [id number] [place] [address] Jan, [facility] [place] [facility] [address] [id number] [place] [address] Jan, [facility] [address] [id number] [place] [address] Jan, [facility] [place] [facility] [address] [id number] [place] [address] Jan, [facility] [address] [id number] [place] [address] Jan, [facility] [place] [facility] [address] [id number] [place] [address] Dec, [facility] [address] [id number] [place] [address] Dec, [facility] [place] [facility] [address] [id number] [place] [address] Dec, [facility] [place] [facility] [address] [id number] [place] [address] Dec, [facility] [address] [id number] [place] [address] Dec, [facility] [place] [facility] [address] [id number] [place] [address] Dec, [facility] [address] [facility] [id number] [place] [address] Nov, [facility] [place] [facility] [address] [id number] [place] [address] Nov, [facility] [place] [facility] [address] [id number] [place] [address] 24 Oct, 2011 [facility] [place] [facility] [address] [id number] [place] [address] 24 Oct, 2011 [facility] [place] [facility] [address] [id number] [place] [address] 24 Oct, 2011 [facility] [place] [facility] [address] [id number] [place] [address] Oct, [facility] [place] [facility] [address] [id number] [place] [address] Sep, [facility] [place] [facility] [address] [id number] [place] [address] Sep, [facility] [place] [facility] [address] [id number] [place] [address] Aug, [facility] [place] [facility] [address] [id number] [place] [address] Aug, [facility] [place] [facility] [address] [id number] [place] [address] Aug, [facility] [place] [facility] [address] [id number] [place] [address] Aug, [facility] [place] [facility] [address] [id number] [place] [address] Aug, [facility] [place] [facility] [address] [id number] [place] [address] Aug, [facility] [place] [facility] [address] [id number] [place] [address] Jul, [facility] [place] [facility] [address] [id number] [place] [address] Jul, [facility] [place] [facility] [address] [id number] [place] [address] June, [facility] [place] [facility] [address] [id number] [place] [address] June, [facility] [place] [facility] [address] [id number] [place] [address] May, [facility] [place] [facility] [address] [id number] [place] [address] May, [facility] [place] [facility] [address] [id number] [place] [address] May, [facility] [place] [facility] [address] [id number], [place] [address] May, [facility] [address] [id number] [place] [address] Apr, [facility] [place] [facility] [address] [id number] [place] [address] Apr, [facility] [address] [id number] [place] [address] Apr, [facility] [place] [facility] [address] [id number] [place] [address] Apr, [facility] [address] [id number] [place] [address] Mar, [facility] [place] [facility] [address] [id number] [place] [address] Mar, [facility] [address] [facility] [id number] [place] [address] Feb, [facility] [address] [id number] [place] [address] Feb, [facility] [address] [id number] [place] [address] Feb, [facility] [address] [facility] [id number] [place] [address] Feb, [facility] [address] [id number] [place] [address] Feb, [facility] [place] [facility] [address] [id number] [place] [address] Jan, [facility] [place] [facility] [address] [id number] [place] [address] Dec, [facility] [place] [facility] [address] [id number] [place] [address] Dec, [facility] [place] [facility] [address] [facility] [id number] [place] [address] Dec, [facility] [place] [facility] [id number] [address] Nov, [facility] [id number] [address] Nov, [facility] [address] [facility] [id number], [place] [address] Aug, [facility] [address], [place] [address] Jan, [facility] [address], [place] [address] Dec, [facility] [address], [place] [address] Nov, [facility] [address], [place] [address] Jan, [facility] [address] [address] Jan, IMMUNIZATIONS No Known Immunizations SOCIAL HISTORY Never Assessed REASON FOR VISIT EMR-[facility] PLAN OF CARE VITAL SIGNS MEDICATIONS Unknown [...]
--- OUTSIDE RECORDS SUMMARY | 2018-07-20 06:27 | XMS REPORT ---
Author Author Migration, Doctor Organization [facility] Address Unknown Phone Unavailable Care Team Providers Care Marketing Communications Assistant Name Role Phone Migration, Doctor Unavailable Unavailable PROBLEMS Type Condition ICD9-CM Code YYA91-QG Code Onset Dates Condition Status SNOMED Code Problem Other chronic pain G89.29 Active 61581950 Problem Open wound of right foot, initial encounter S91.301A Active [id number] Problem Arthritis M19.90 Active 9646357 Problem Osteoarthritis M19.90 Active 343711569 Problem Major depression F32.9 Active 265058421 Problem Essential hypertension I10 Active 97254837 Problem GERD (gastroesophageal reflux disease) K21.9 Active 706908574 Problem Insomnia G47.00 Active 919486618 Problem Breast cancer C50.919 Active 587483127 Problem Spinal stenosis M48.00 Active 62345623 Problem Migraine G43.909 Active 54394966 Problem Migraine with aura and without status migrainosus, not intractable G43.109 Active 7166590 Problem Anxiety F41.9 Active 53107261 Problem Panic disorder F41.0 Active 796168694 Problem Functional urinary incontinence R39.81 Active 226701200 Problem Hypothyroidism E03.9 Active 68281656 Problem Major depressive disorder, recurrent episode, moderate F33.1 Active 312241930 Problem Borderline personality disorder F60.3 Active 97247917 Problem Morbid (severe) obesity due to excess calories E66.01 Active 763502217 Problem IZABEL on CPAP G47.33 Active 00331834 Problem Type 2 diabetes mellitus E11.9 Active 26316406 Problem Diabetic polyneuropathy associated with type 2 diabetes mellitus E11.42 Active 66950992 ALLERGIES No Information ENCOUNTERS Encounter Location Date Diagnosis [address] [address] Aug, [address] [address] May, [address] [address] May, [facility] [address] [address] May, [address] [address] May, Hypothyroidism E03.9 ; Type 2 diabetes mellitus E11.9 and Morbid obesity E66.[address] [address] May, Morbid obesity E66.01 [facility] [address] [facility] [id number] [address] May, Peripheral edema R60.9 [facility] [address] [facility] [id number] [address] May, Peripheral edema R60.9 ; Weight gain R63.5 ; Shortness of breath R06.02 and Morbid obesity E66.01 [facility] [address] [facility] [place] [address] May, Pedal edema R60.0 and Morbid obesity E66.[address] [address] May, [address] [address] May, [address] [address] May, [facility] [address] [facility] [id number] [address] Apr, Bilateral lower extremity edema R60.0 ; Morbid obesity E66.01 and Weight gain R63.5 [facility] [address] [address] Apr, [address] [address] Apr, [address] [address] Apr, Migraine with aura and without status migrainosus, not intractable G43.[address] [address] Apr, [facility] [address] [address] Apr, [facility] [address] [address] Apr, [facility] [address] [address] Apr, [facility] [address] [address] Apr, [facility] [address] [address] Apr, Type 2 diabetes mellitus E11.9 ; Pain in right knee M25.561 ; Other chronic pain G89.29 ; Pain in right shoulder M25.511 ; Morbid obesity E66.01 and Diabetic polyneuropathy associated with type 2 diabetes mellitus E11.42 [facility] [address] [address] Apr, [facility] [id number] [place] [address] Apr, [facility] [address] [place] [address] Mar, Open wound of right foot, initial encounter S91.301A and Morbid obesity E66.01 [facility] [address] [place] [address] Mar, Dysuria R30.0 and Painful urination R30.9 [facility] [address] [address] Mar, Depression, major, recurrent, moderate 296.32 [facility] [address] [address] Mar, [facility] [address] [address] Mar, [facility] [id number] [place] [address] Feb, Dental examination Z01.20 [facility] [address] [address] Nov, [facility] [address]65[place] [address] Nov, [facility] [id number] [place] [address] Mar, Major depressive disorder, recurrent episode, moderate F33.1 ; Panic disorder F41.0 and Borderline personality disorder F60.3 [facility] [id number] [place] [address] Sep, Depression, major, recurrent, moderate 296.32 ; Agoraphobia with panic disorder 300.21 and Borderline personality disorder 301.83 [facility] [id number] [place] [address] Aug, Depression, major, recurrent, moderate 296.32 ; Panic disorder without agoraphobia 300.01 and Borderline personality disorder 301.83 [facility] [id number] [place] [address] Jul, Depression, major, recurrent, moderate 296.32 ; Agoraphobia with panic disorder 300.21 and Posttraumatic stress disorder 309.81 [facility] [id number] [place] [address] 30 May, 2014 [facility] [id number] [place] [address] May, [facility] [address] [address] May, [facility] [id number] [place] [address] Apr, [facility] [id number] [place] [address] Apr, [facility] [id number] [place] [address] 05 Apr, 2014 [facility] [address]65[address] [address] Apr, [facility] [address] [id number] [place] [address] 16 Mar, 2014 [facility] [place] [facility] [address] [id number] [place] [address] Mar, 2014 [facility] [place] [facility] [address] [id number] [place] [address] Mar, 2014 [facility] [place] [facility] [address] [id number] [place] [address] Mar, [facility] [place] [facility] [address] [id number] [place] [address] Feb, [facility] [place] [facility] [address] [id number] [place] [address] Feb, [facility] [place] [facility] [address] [id number] [place] [address] Jan, [facility] [place] [facility] [address] [id number] [place] [address] Jan, [facility] [place] [facility] [address] [id number] [place] [address] Jan, [facility] [place] [facility] [address] [id number] [place] [address] Jan, [facility] [place] [facility] [address] [id number] Dec, [facility] [place] [facility] [address] [id number] Dec, [facility] [place] [facility] [address] [id number] [address] Dec, [facility] [place] [facility] [address] [facility] [id number] [place] [address] Dec, [facility] [place] [facility] [address] [facility] [id number] [place] [address] Dec, [facility] [place] [facility] [address] [facility] [id number] [place] [address] Nov, [facility] [place] [facility] [address] [id number] [place] [address] Nov, [facility] [place] [facility] [address] [id number] [place] [address] Nov, [facility] [place] [facility] [address] [id number] [place] [address] Nov, [facility] [place] [facility] [address] [id number] [place] [address] Nov, [facility] [place] [facility] [address] [id number] [place] [address] Nov, [facility] [place] [facility] [address] [id number] [place] [address] Nov, [facility] [place] [facility] [address] [id number] [place] [address] Nov, [facility] [place] [facility] [address] [id number] [place] [address] Oct, [facility] [place] [facility] [address] [id number] [place] [address] Oct, [facility] [place] [facility] [address] [id number] [place] [address] Sep, [facility] [place] [facility] [address] [id number] [place] [address] Sep, [facility] [place] [facility] [address] [id number] [address] Sep, [facility] [place] [facility] [address] [id number] [place] [address] Sep, [facility] [place] [facility] [address] [id number] [place] [address] Sep, [facility] [place] [facility] [address] [id number] [place] [address] Sep, [facility] [place] [facility] [address] [id number] [place] [address] Jul, [facility] [address] [id number] [place] [address] Jul, [facility] [place] [facility] [address] [id number] [place] [address] June, [facility] [address] [id number] [place] [address] June, [facility] [place] [facility] [address] [id number] [place] [address] June, [facility] [place] [facility] [address] [id number] [place] [address] June, [facility] [place] [facility] [address] [id number] [place] [address] May, [facility] [address] [id number] [place] [address] May, [facility] [place] [facility] [address] [id number] [place] [address] May, [facility] [place] [facility] [address] [id number] [place] [address] May, [facility] [place] [facility] [address] [id number] [place] [address] Apr, [facility] [place] [facility] [address] [id number] [place] [address] Apr, [facility] [place] [facility] [address] [id number] [place] [address] Mar, [facility] [place] [facility] [address] [id number] [place] [address] Mar, [facility] [place] [facility] [address] [id number] [place] [address] Feb, [facility] [place] [facility] [address] [id number] [place] [address] Feb, [facility] [place] [facility] [address] [id number] [place] [address] Feb, [facility] [place] [facility] [address] [id number] [place] [address] Feb, [facility] [place] [facility] [address] [id number] [place] [address] Dec, [facility] [place] [facility] [address] [id number] [place] [address] Dec, [facility] [place] [facility] [address] [id number] [place] [address] Dec, [facility] [place] [facility] [address] [id number] [place] [address] Dec, [facility] [place] [facility] [address] [id number] [place] [address] Nov, [facility] [place] [facility] [address] [id number] [place] [address] Nov, [facility] [place] [facility] [address] [id number] [place] [address] Nov, [facility] [place] [facility] [address] [id number] [place] [address] Nov, [facility] [place] [facility] [address] [id number] [place] [address] 23 Oct, 2012 [facility] [place] [facility] [address] [id number] [place] [address] 16 Oct, 2012 [facility] [place] [facility] [address] [id number] [place] [address] 10 Oct, 2012 [facility] [place] [facility] [address] [id number] [place] [address] 03 Oct, 2012 [facility] [place] [facility] [address] [id number] [place] [address] 31 Aug, 2012 [facility] [place] [facility] [address] [id number] [place] [address] Aug, [facility] [address] [id number] [place] [address] Aug, [facility] [address] [id number] [place] [address] Aug, [facility] [address] [id number] [place] [address] Aug, [facility] [place] [facility] [address] [id number] [place] [address] Jul, [facility] [address] [id number] [place] [address] June, [facility] [address] [id number] [place] [address] May, [facility] [address] [id number] [place] [address] Apr, [facility] [address] [id number] [place] [address] Mar, [facility] [address] [id number] [place] [address] Mar, [facility] [address] [id number] [place] [address] Jan, [facility] [address] [id number] [place] [address] Jan, [facility] [place] [facility] [address] [id number] [place] [address] Jan, [facility] [place] [facility] [address] [id number] [place] [address] Jan, [facility] [place] [facility] [address] [id number] [place] [address] Jan, [facility] [place] [facility] [address] [id number] [place] [address] Jan, [facility] [place] [facility] [address] [id number] [place] [address] Jan, [facility] [address] [id number] [place] [address] Jan, [facility] [place] [facility] [address] [id number] [place] [address] Jan, [facility] [address] [id number] [place] [address] Jan, [facility] [place] [facility] [address] [id number] [place] [address] Dec, [facility] [address] [id number] [place] [address] Dec, [facility] [place] [facility] [address] [id number] [place] [address] Dec, [facility] [place] [facility] [address] [id number] [place] [address] Dec, [facility] [address] [id number] [place] [address] Dec, [facility] [place] [facility] [address] [id number] [place] [address] Dec, [facility] [address] [facility] [id number] [place] [address] Nov, [facility] [place] [facility] [address] [id number] [place] [address] Nov, [facility] [place] [facility] [address] [id number] [place] [address] 24 Oct, 2011 [facility] [place] [facility] [address] [id number] [place] [address] 24 Oct, 2011 [facility] [place] [facility] [address] [id number] [place] [address] 24 Oct, 2011 [facility] [place] [facility] [address] [id number] [place] [address] Oct, [facility] [place] [facility] [address] [id number] [place] [address] Sep, [facility] [place] [facility] [address] [id number] [place] [address] Sep, [facility] [place] [facility] [address] [id number] [place] [address] Aug, [facility] [place] [facility] [address] [id number] [place] [address] Aug, [facility] [place] [facility] [address] [id number] [place] [address] Aug, [facility] [place] [facility] [address] [id number] [place] [address] Aug, [facility] [place] [facility] [address] [id number] [place] [address] Aug, [facility] [place] [facility] [address] [id number] [place] [address] Aug, [facility] [place] [facility] [address] [id number] [place] [address] Jul, [facility] [place] [facility] [address] [id number] [place] [address] Jul, [facility] [place] [facility] [address] [id number] [place] [address] June, [facility] [place] [facility] [address] [id number] [place] [address] June, [facility] [place] [facility] [address] [id number] [place] [address] May, [facility] [place] [facility] [address] [id number] [place] [address] May, [facility] [place] [facility] [address] [id number] [place] [address] May, [facility] [place] [facility] [address] [id number] [address] May, [facility] [address] [id number] [place] [address] Apr, [facility] [place] [facility] [address] [id number] [place] [address] Apr, [facility] [address] [id number] [place] [address] Apr, [facility] [place] [facility] [address] [id number] [place] [address] Apr, [facility] [address] [id number] [place] [address] Mar, [facility] [place] [facility] [address] [id number] [place] [address] Mar, [facility] [address] [facility] [id number] [place] [address] Feb, [facility] [address] [id number] [place] [address] Feb, [facility] [address] [id number] [place] [address] Feb, [facility] [address] [facility] [id number] [place] [address] Feb, [facility] [address] [id number] [place] [address] Feb, [facility] [place] [facility] [address] [id number] [place] [address] Jan, [facility] [place] [facility] [address] [id number] [place] [address] Dec, [facility] [place] [facility] [address] [id number] [place] [address] Dec, [facility] [place] [facility] [address] [facility] [id number] [place] [address] Dec, [facility] [place] [facility] [address] [id number] [address] Nov, [facility] [address] [id number] [address] Nov, [facility] [address] [facility] [id number] [place] [address] Aug, [facility] [address] [address] Jan, [facility] [address] [address] Dec, [facility] [address] [address] Nov, [facility] [address] [address] Jan, [facility] [address] [address] Jan, IMMUNIZATIONS No Known Immunizations SOCIAL HISTORY Never Assessed REASON FOR VISIT EMR-[facility] [place] PLAN OF CARE VITAL SIGNS MEDICATIONS Unknown [...]
--- OUTSIDE RECORDS SUMMARY | 2018-07-20 06:28 | XMS REPORT ---
Author Author Migration, Doctor Organization [facility] Address Unknown Phone Unavailable Care Team Providers Care Supervisor Cured Meats Name Role Phone Migration, Doctor Unavailable Unavailable PROBLEMS Type Condition ICD9-CM Code BWO68-CY Code Onset Dates Condition Status SNOMED Code Problem Other chronic pain G89.29 Active 05025050 Problem Open wound of right foot, initial encounter S91.301A Active 04322297672297900 Problem Arthritis M19.90 Active 0575862 Problem Osteoarthritis M19.90 Active 132915341 Problem Major depression F32.9 Active 254857171 Problem Essential hypertension I10 Active 32292161 Problem GERD (gastroesophageal reflux disease) K21.9 Active 185562936 Problem Insomnia G47.00 Active 836995429 Problem Breast cancer C50.919 Active 137937246 Problem Spinal stenosis M48.00 Active 30180718 Problem Migraine G43.909 Active 03980297 Problem Migraine with aura and without status migrainosus, not intractable G43.109 Active 3440341 Problem Anxiety F41.9 Active 55602666 Problem Panic disorder F41.0 Active 672875182 Problem Functional urinary incontinence R39.81 Active 116335858 Problem Hypothyroidism E03.9 Active 21138806 Problem Major depressive disorder, recurrent episode, moderate F33.1 Active 766100450 Problem Borderline personality disorder F60.3 Active 23433981 Problem Morbid (severe) obesity due to excess calories E66.01 Active 428265944 Problem IZABEL on CPAP G47.33 Active 50507777 Problem Type 2 diabetes mellitus E11.9 Active 22137591 Problem Diabetic polyneuropathy associated with type 2 diabetes mellitus E11.42 Active 68031379 ALLERGIES No Information ENCOUNTERS Encounter Location Date Diagnosis [address] [address] Aug, [address] [address] May, [address] [address] May, [facility] [address] [address] May, [address] [address] May, Hypothyroidism E03.9 ; Type 2 diabetes mellitus E11.9 and Morbid obesity E66.[address] [address] May, Morbid obesity E66.01 [facility] [address] [facility] [id number] [address] May, Peripheral edema R60.9 [facility] [address] [facility] [id number], [place] [address] May, Peripheral edema R60.9 ; Weight gain R63.5 ; Shortness of breath R06.02 and Morbid obesity E66.01 [facility] [address] [facility] [place] [place] [address] May, Pedal edema R60.0 and Morbid obesity E66.[address] [address] May, [address] [address] May, [address] [address] May, [facility] [address] [facility] [id number] [address] Apr, Bilateral lower extremity edema R60.0 ; Morbid obesity E66.01 and Weight gain R63.5 [facility] [address] [address] Apr, [address] [address] Apr, [address] [address] Apr, Migraine with aura and without status migrainosus, not intractable G43.[address] [address] Apr, [facility] [address] [address] Apr, [facility] [address] [address] Apr, [facility] [address] [address] Apr, [facility] [address] [address] Apr, [facility] [address] [address] Apr, Type 2 diabetes mellitus E11.9 ; Pain in right knee M25.561 ; Other chronic pain G89.29 ; Pain in right shoulder M25.511 ; Morbid obesity E66.01 and Diabetic polyneuropathy associated with type 2 diabetes mellitus E11.42 [facility] [address] [address] Apr, [facility] [address] [place] [address] Apr, [facility] [address] [place] [address] Mar, Open wound of right foot, initial encounter S91.301A and Morbid obesity E66.01 [facility] [address] [place] [address] Mar, Dysuria R30.0 and Painful urination R30.9 [facility] [address] [address] Mar, Depression, major, recurrent, moderate 296.32 [facility] [address] [address] Mar, [facility] [address] [address] Mar, [facility] [address] [place] [address] Feb, Dental examination Z01.20 [facility] [address] [address] Nov, [facility] [address] [address] Nov, [facility] [id number] [place] [address] Mar, Major depressive disorder, recurrent episode, moderate F33.1 ; Panic disorder F41.0 and Borderline personality disorder F60.3 [facility] [id number] [place] [address] Sep, Depression, major, recurrent, moderate 296.32 ; Agoraphobia with panic disorder 300.21 and Borderline personality disorder 301.83 [facility] [id number] [place] [address] Aug, Depression, major, recurrent, moderate 296.32 ; Panic disorder without agoraphobia 300.01 and Borderline personality disorder 301.83 [facility] [id number] [place] [address] Jul, Depression, major, recurrent, moderate 296.32 ; Agoraphobia with panic disorder 300.21 and Posttraumatic stress disorder 309.81 [facility] [address] [place] [address] 30 May, 2014 [facility] [address] [place] [address] May, [facility] [address] [address] May, [facility] [id number] [place] [address] Apr, [facility] [address] [place] [address] Apr, [facility] [address] [place] [address] 05 Apr, 2014 [facility] [address] [address] Apr, [facility] [id number] [place] [address] 16 Mar, 2014 [facility] [place] [facility] [address] [id number] [place] [address] Mar, 2014 [facility] [place] [facility] [address] [id number] [place] [address] Mar, 2014 [facility] [place] [facility] [address] [id number] [place] [address] Mar, [facility] [place] [facility] [address] [id number] [place] [address] Feb, [facility] [place] [facility] [address] [id number] [place] [address] Feb, [facility] [place] [facility] [address] [id number] [place] [address] Jan, [facility] [place] [facility] [address] [id number] [place] [address] Jan, [facility] [place] [facility] [address] [id number] [place] [address] Jan, [facility] [place] [facility] [address] [id number] [place] [address] Jan, [facility] [place] [facility] [address] [id number] Dec, [facility] [place] [facility] [address] [address] Dec, [facility] [place] [facility] [address] [id number], [place] [address] Dec, [facility] [place] [facility] [address] [facility] [id number] [place] [address] Dec, [facility] [place] [facility] [address] [facility] [id number] [place] [address] Dec, [facility] [place] [facility] [address] [facility] [id number] [place] [address] Nov, [facility] [place] [facility] [address] [id number] [place] [address] Nov, [facility] [place] [facility] [address] [id number] [place] [address] Nov, [facility] [place] [facility] [address] [id number] [place] [address] Nov, [facility] [place] [facility] [address] [id number] [place] [address] Nov, [facility] [place] [facility] [address] [id number] [place] [address] Nov, [facility] [place] [facility] [address] [id number] [place] [address] Nov, [facility] [place] [facility] [address] [id number] [place] [address] Nov, [facility] [place] [facility] [address] [id number] [place] [address] Oct, [facility] [place] [facility] [address] [id number] [place] [address] Oct, [facility] [place] [facility] [address] [id number] [place] [address] Sep, [facility] [place] [facility] [address] [id number] [place] [address] Sep, [facility] [place] [facility] [address] [id number] [address] Sep, [facility] [place] [facility] [address] [id number] [place] [address] Sep, [facility] [place] [facility] [address] [id number] [place] [address] Sep, [facility] [place] [facility] [address] [id number] [address] Sep, [facility] [place] [facility] [address] [id number], [place] [address] Jul, [facility] [address] [id number] [place] [address] Jul, [facility] [place] [facility] [address] [id number] [place] [address] June, [facility] [address] [id number] [place] [address] June, [facility] [place] [facility] [address] [id number] [place] [address] June, [facility] [place] [facility] [address] [id number] [place] [address] June, [facility] [place] [facility] [address] [id number] [place] [address] May, [facility] [address] [id number] [place] [address] May, [facility] [place] [facility] [address] [id number] [place] [address] May, [facility] [place] [facility] [address] [id number] [place] [address] May, [facility] [place] [facility] [address] [id number] [place] [address] Apr, [facility] [place] [facility] [address] [id number] [place] [address] Apr, [facility] [place] [facility] [address] [id number] [place] [address] Mar, [facility] [place] [facility] [address] [id number] [place] [address] Mar, [facility] [place] [facility] [address] [id number] [place] [address] Feb, [facility] [place] [facility] [address] [id number] [place] [address] Feb, [facility] [place] [facility] [address] [id number] [place] [address] Feb, [facility] [place] [facility] [address] [id number] [place] [address] Feb, [facility] [place] [facility] [address] [id number] [place] [address] Dec, [facility] [place] [facility] [address] [id number] [place] [address] Dec, [facility] [place] [facility] [address] [id number] [place] [address] Dec, [facility] [place] [facility] [address] [id number] [place] [address] Dec, [facility] [place] [facility] [address] [id number] [place] [address] Nov, [facility] [place] [facility] [address] [id number] [place] [address] Nov, [facility] [place] [facility] [address] [id number] [place] [address] Nov, [facility] [place] [facility] [address] [id number] [place] [address] Nov, [facility] [place] [facility] [address] [id number] [place] [address] 23 Oct, 2012 [facility] [place] [facility] [address] [id number] [place] [address] 16 Oct, 2012 [facility] [place] [facility] [address] [id number] [place] [address] 10 Oct, 2012 [facility] [place] [facility] [address] [id number] [place] [address] 03 Oct, 2012 [facility] [place] [facility] [address] [id number] [place] [address] 31 Aug, 2012 [facility] [place] [facility] [address] [id number] [place] [address] Aug, [facility] [address] [id number] [place] [address] Aug, [facility] [address] [id number] [place] [address] Aug, [facility] [address] [id number] [place] [address] Aug, [facility] [place] [facility] [address] [id number] [place] [address] Jul, [facility] [address] [id number] [place] [address] June, [facility] [address] [id number] [place] [address] May, [facility] [address] [id number] [place] [address] Apr, [facility] [address] [id number] [place] [address] Mar, [facility] [address] [id number] [place] [address] Mar, [facility] [address] [id number] [place] [address] Jan, [facility] [address] [id number] [place] [address] Jan, [facility] [place] [facility] [address] [id number] [place] [address] Jan, [facility] [place] [facility] [address] [id number] [place] [address] Jan, [facility] [place] [facility] [address] [id number] [place] [address] Jan, [facility] [place] [facility] [address] [id number] [place] [address] Jan, [facility] [place] [facility] [address] [id number] [place] [address] Jan, [facility] [address] [id number] [place] [address] Jan, [facility] [place] [facility] [address] [id number] [place] [address] Jan, [facility] [address] [id number] [place] [address] Jan, [facility] [place] [facility] [address] [id number] [place] [address] Dec, [facility] [address] [id number] [place] [address] Dec, [facility] [place] [facility] [address] [id number] [place] [address] Dec, [facility] [place] [facility] [address] [id number] [place] [address] Dec, [facility] [address] [id number] [place] [address] Dec, [facility] [place] [facility] [address] [id number] [place] [address] Dec, [facility] [address] [facility] [id number] [place] [address] Nov, [facility] [place] [facility] [address] [id number] [place] [address] Nov, [facility] [place] [facility] [address] [id number] [place] [address] 24 Oct, 2011 [facility] [place] [facility] [address] [id number] [place] [address] 24 Oct, 2011 [facility] [place] [facility] [address] [id number] [place] [address] 24 Oct, 2011 [facility] [place] [facility] [address] [id number] [place] [address] Oct, [facility] [place] [facility] [address] [id number] [place] [address] Sep, [facility] [place] [facility] [address] [id number] [place] [address] Sep, [facility] [place] [facility] [address] [id number] [place] [address] Aug, [facility] [place] [facility] [address] [id number] [place] [address] Aug, [facility] [place] [facility] [address] [id number] [place] [address] Aug, [facility] [place] [facility] [address] [id number] [place] [address] Aug, [facility] [place] [facility] [address] [id number] [place] [address] Aug, [facility] [place] [facility] [address] [id number] [place] [address] Aug, [facility] [place] [facility] [address] [id number] [place] [address] Jul, [facility] [place] [facility] [address] [id number] [place] [address] Jul, [facility] [place] [facility] [address] [id number] [place] [address] June, [facility] [place] [facility] [address] [id number] [place] [address] June, [facility] [place] [facility] [address] [id number] [place] [address] May, [facility] [place] [facility] [address] [id number] [place] [address] May, [facility] [place] [facility] [address] [id number] [place] [address] May, [facility] [place] [facility] [address] [id number] [address] May, [facility] [address] [id number] [place] [address] Apr, [facility] [place] [facility] [address] [id number] [place] [address] Apr, [facility] [address] [id number] [place] [address] Apr, [facility] [place] [facility] [address] [id number] [place] [address] Apr, [facility] [address] [id number] [place] [address] Mar, [facility] [place] [facility] [address] [id number] [place] [address] Mar, [facility] [address] [facility] [id number] [place] [address] Feb, [facility] [address] [id number] [place] [address] Feb, [facility] [address] [id number] [place] [address] Feb, [facility] [address] [facility] [id number] [place] [address] Feb, [facility] [address] [id number] [place] [address] Feb, [facility] [place] [facility] [address] [id number] [place] [address] Jan, [facility] [place] [facility] [address] [id number] [place] [address] Dec, [facility] [place] [facility] [address] [id number] [place] [address] Dec, [facility] [place] [facility] [address] [facility] [id number] [place] [address] Dec, [facility] [place] [facility] [address] [id number] [address] Nov, [facility] [address] [id number] [address] Nov, [facility] [address] [facility] [id number] [address] Aug, [facility] [address] [address] Jan, [facility] [address] [address] Dec, [facility] [address] [address] Nov, [facility] [address] [address] Jan, [facility] [address] [address] Jan, IMMUNIZATIONS No Known Immunizations SOCIAL HISTORY Never Assessed REASON FOR VISIT EMR-[facility] PLAN OF CARE VITAL SIGNS MEDICATIONS Unknown [...]
--- OUTSIDE RECORDS SUMMARY | 2018-07-20 06:29 | XMS REPORT ---
Author Author LAMBERTO MCCORMACK [facility] eClinical[employer] Address Unknown Phone Unavailable Care Team Providers Care Director Database Name Role Phone LAMBERTO MCCORMACK Unavailable Allergies No Known Allergies Problems Problem Type Condition Code Onset Dates Condition Status Problem Panic disorder F41.0 Active Problem Borderline personality disorder F60.3 Active Problem Major depressive disorder, recurrent episode, moderate F33.1 Active Problem Posttraumatic stress disorder 309.81 Active Medications No Known Medications Results No Known Results Summary Purpose eClinicalWorks Submission
--- OUTSIDE RECORDS SUMMARY | 2018-07-20 06:29 | XMS REPORT ---
Author Author LAMBERTO MCCORMACK [facility] eClinical[employer] Address Unknown Phone Unavailable Care Team Providers Care Gin Feeder Name Role Phone LAMBERTO MCCORMACK Unavailable Allergies No Known Allergies Problems Problem Type Condition ICD-9 Code Onset Dates Condition Status Assessment Borderline personality disorder 301.83 Active Problem Unspecified personality disorder 301.9 Active Problem Sedative, hypnotic or anxiolytic dependence, unspecified 304.10 Active Problem Depression, major, recurrent, moderate 296.32 Active Assessment Depression, major, recurrent, moderate 296.32 Active Assessment Agoraphobia with panic disorder 300.21 Active Problem Posttraumatic stress disorder 309.81 Active Problem Agoraphobia with panic disorder 300.21 Active Medications No Known Medications Procedures Procedure Coding System Code Date Psychotherapy, patient &/family, 45 minutes, established patient CPT-4 [id number] Oct 15, 2014 Results No Known Results Summary Purpose [employer] [facility] Submission
--- OUTSIDE RECORDS SUMMARY | 2018-07-20 06:29 | XMS REPORT ---
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 Role Phone NITISH VARELA Unavailable PROBLEMS Type Condition ICD9-CM Code SRZ03-XW Code Onset Dates Condition Status SNOMED Code Problem Open wound of right foot, initial encounter S91.301A Active [id number] Problem Borderline personality disorder F60.3 Active 35983467 Problem Arthritis M19.90 Active 0926121 Problem Osteoarthritis M19.90 Active 917675605 Problem Major depression F32.9 Active 836152383 Problem Essential hypertension I10 Active 55568096 Problem GERD (gastroesophageal reflux disease) K21.9 Active 841563960 Problem Insomnia G47.00 Active 560395165 Problem Other chronic pain G89.29 Active 17288904 Problem Breast cancer C50.919 Active 477505738 Problem Spinal stenosis M48.00 Active 71285657 Problem Diabetic polyneuropathy associated with type 2 diabetes mellitus E11.42 Active 77967743 Problem Anxiety F41.9 Active 02116499 Problem Major depressive disorder, recurrent episode, moderate F33.1 Active 991017207 Problem Migraine with aura and without status migrainosus, not intractable G43.109 Active 0804248 Problem Hypothyroidism E03.9 Active 66012320 Problem Posttraumatic stress disorder 309.81 Active 62786121 Problem Panic disorder F41.0 Active 863714169 Problem Migraine G43.909 Active 76572254 Problem Morbid (severe) obesity due to excess calories E66.01 Active 199500339 Problem IZABEL on CPAP G47.33 Active 80496050 Problem Type 2 diabetes mellitus E11.9 Active 05355510 ALLERGIES No Information ENCOUNTERS Encounter Location Date Diagnosis [address] [address] Apr, Migraine with aura and without status migrainosus, not intractable G43.[address] [address] Apr, [facility] [address] [address] Apr, [facility] [address] [address] Apr, [facility] [address] [address] Apr, [facility] [address] [address] Apr, [facility] [address] [address] Apr, Type 2 diabetes mellitus E11.9 ; Pain in right knee M25.561 ; Other chronic pain G89.29 ; Pain in right shoulder M25.511 ; Morbid obesity E66.01 and Diabetic polyneuropathy associated with type 2 diabetes mellitus E11.42 [facility] [address] [address] Apr, [facility] [id number] [place] [address] Apr, [facility] [address] [place] [address] Mar, Open wound of right foot, initial encounter S91.301A and Morbid obesity E66.01 [facility] [address] [place] [address] Mar, Dysuria R30.0 and Painful urination R30.9 [facility] [address] [address] Mar, Depression, major, recurrent, moderate 296.32 [facility] [address] [address] Mar, [facility] [address] [address] Mar, [facility] [address], [place] [address] Feb, Dental examination Z01.20 [facility] [address] [place] [address] Nov, [facility] [address] [place] [address] Nov, [facility] [id number] [place] [address] Mar, Major depressive disorder, recurrent episode, moderate F33.1 ; Panic disorder F41.0 and Borderline personality disorder F60.3 [facility] [id number] [place] [address] Sep, Depression, major, recurrent, moderate 296.32 ; Agoraphobia with panic disorder 300.21 and Borderline personality disorder 301.83 [facility] [id number] [place] [address] Aug, Depression, major, recurrent, moderate 296.32 ; Panic disorder without agoraphobia 300.01 and Borderline personality disorder 301.83 [facility] [id number] [place] [address] Jul, Depression, major, recurrent, moderate 296.32 ; Agoraphobia with panic disorder 300.21 and Posttraumatic stress disorder 309.81 [facility] [id number] [place] [address] 30 May, 2014 [facility] [address] [place] [address] 14 May, 2014 [facility] [id number] [place] [address] May, [facility] [id number] [place] [address] Apr, [facility] [id number] [place] [address] Apr, [facility] [address], [place] [address] 05 Apr, 2014 [facility] [id number] [place] [address] Apr, [facility] [place] [facility] [address] [id number] [place] [address] Mar, [facility] [place] [facility] [address] [id number] [place] [address] Mar, [facility] [place] [facility] [address] [facility] [id number] [place] [address] Mar, [facility] [place] [facility] [address] [id number] [place] [address] Mar, [facility] [place] [facility] [address] [id number] [place] [address] Feb, [facility] [place] [facility] [address] [id number] [place] [address] Feb, [facility] [place] [facility] [address] [id number] [place] [address] Jan, [facility] [place] [facility] [address] [id number], [place] [address] Jan, [facility] [place] [facility] [address] [id number], [place] [address] Jan, [facility] [place] [facility] [address] [facility] [id number], [place] [address] Jan, [facility] [place] [facility] [id number] [address] Dec, [facility] [place] [facility] [address] [facility] [id number] [address] Dec, [facility] [place] [facility] [address] [id number], [place] [address] Dec, [facility] [place] [facility] [address] [facility] [id number], [place] [address] Dec, [facility] [place] [facility] [address] [facility] [id number], [place] [address] Dec, [facility] [place] [facility] [address] [id number] [place] [address] Nov, [facility] [place] [facility] [address] [id number] [place] [address] Nov, [facility] [place] [facility] [address] [id number] [place] [address] Nov, [facility] [place] [facility] [address] [id number] [place] [address] Nov, [facility] [place] [facility] [address] [id number] [place] [address] Nov, [facility] [place] [facility] [address] [id number] [place] [address] Nov, [facility] [place] [facility] [address] [id number] [place] [address] Nov, [facility] [place] [facility] [address] [id number] [place] [address] Nov, [facility] [place] [facility] [address] [id number] [place] [address] Oct, [facility] [place] [facility] [address] [id number] [place] [address] Oct, [facility] [place] [facility] [address] [id number] [place] [address] Sep, [facility] [place] [facility] [address] [id number] [place] [address] Sep, [facility] [place] [facility] [address] [id number] [place] [address] Sep, [facility] [place] [facility] [address] [id number] [place] [address] Sep, [facility] [place] [facility] [address] [id number] [place] [address] Sep, [facility] [place] [facility] [address] [id number] [place] [address] Sep, [facility] [place] [facility] [address] [id number] [place] [address] Jul, [facility] [place] [facility] [address] [id number] [place] [address] Jul, [facility] [place] [facility] [address] [id number] [place] [address] June, [facility] [place] [facility] [address] [id number] [place] [address] June, [facility] [place] [facility] [address] [id number] [place] [address] June, [facility] [place] [facility] [address] [id number] [place] [address] June, [facility] [place] [facility] [address] [id number] [place] [address] May, [facility] [place] [facility] [address] [id number] [place] [address] May, [facility] [place] [facility] [address] [id number] [place] [address] May, [facility] [place] [facility] [address] [id number] [place] [address] May, [facility] [place] [facility] [address] [id number] [place] [address] Apr, [facility] [place] [facility] [address] [id number] [place] [address] Apr, [facility] [place] [facility] [address] [id number] [place] [address] Mar, [facility] [place] [facility] [address] [id number] [place] [address] Mar, [facility] [place] [facility] [address] [id number] [place] [address] Feb, [facility] [place] [facility] [address] [id number], [place] [address] Feb, [facility] [place] [facility] [address] [id number] [place] [address] Feb, [facility] [place] [facility] [address] [id number] [place] [address] Feb, [facility] [place] [facility] [address] [id number] [place] [address] Dec, [facility] [place] [facility] [address] [id number] [place] [address] Dec, [facility] [place] [facility] [address] [id number] [place] [address] Dec, [facility] [place] [facility] [address] [id number] [place] [address] Dec, [facility] [place] [facility] [address] [id number] [place] [address] Nov, [facility] [place] [facility] [address] [id number] [place] [address] Nov, [facility] [place] [facility] [address] [id number] [place] [address] Nov, [facility] [place] [facility] [address] [id number] [place] [address] Nov, [facility] [place] [facility] [address] [id number], [place] [address] 23 Oct, 2012 [facility] [place] [facility] [address] [id number], [place] [address] 16 Oct, 2012 [facility] [place] [facility] [address] [id number] [place] [address] 10 Oct, 2012 [facility] [place] [facility] [address] [id number] [place] [address] 03 Oct, 2012 [facility] [place] [facility] [address] [id number] [place] [address] Aug, [facility] [place] [facility] [address] [id number] [place] [address] Aug, [facility] [address] [id number] [place] [address] Aug, [facility] [place] [facility] [address] [id number] [place] [address] Aug, [facility] [address] [id number] [place] [address] Aug, [facility] [place] [facility] [address] [id number] [place] [address] Jul, [facility] [address] [id number] [place] [address] June, [facility] [address] [id number] [place] [address] May, [facility] [address] [id number] [place] [address] Apr, [facility] [address] [id number] [place] [address] Mar, [facility] [address] [id number] [place] [address] Mar, [facility] [address] [id number] [place] [address] Jan, [facility] [address] [id number] [place] [address] Jan, [facility] [place] [facility] [address] [id number] [place] [address] Jan, [facility] [place] [facility] [address] [id number] [place] [address] Jan, [facility] [place] [facility] [address] [id number] [place] [address] Jan, [facility] [place] [facility] [address] [id number] [place] [address] Jan, [facility] [place] [facility] [address] [id number] [place] [address] Jan, [facility] [place] [facility] [address] [id number] [place] [address] Jan, [facility] [place] [facility] [address] [facility] [id number] [place] [address] Jan, [facility] [place] [facility] [address] [id number] [place] [address] Jan, [facility] [place] [facility] [address] [id number] [place] [address] Dec, [facility] [place] [facility] [address] [id number] [place] [address] Dec, [facility] [place] [facility] [address] [id number] [place] [address] Dec, [facility] [place] [facility] [address] [id number] [place] [address] Dec, [facility] [place] [facility] [address] [id number] [place] [address] Dec, [facility] [place] [facility] [address] [id number] [place] [address] Dec, [facility] [place] [facility] [address] [id number], [place] [address] Nov, [facility] [place] [facility] [address] [id number], [place] [address] Nov, [facility] [place] [facility] [address] [id number] [place] [address] 24 Oct, 2011 [facility] [place] [facility] [address] [id number], [place] [address] 24 Oct, 2011 [facility] [place] [facility] [address] [id number], [place] [address] Oct, [facility] [place] [facility] [address] [id number] [place] [address] Oct, [facility] [place] [facility] [address] [id number] [place] [address] Sep, [facility] [place] [facility] [address] [id number] [place] [address] Sep, [facility] [place] [facility] [address] [id number] [place] [address] Aug, [facility] [place] [facility] [address] [id number] [place] [address] Aug, [facility] [place] [facility] [address] [id number] [place] [address] Aug, [facility] [place] [facility] [address] [id number] [place] [address] Aug, [facility] [place] [facility] [address] [id number] [place] [address] Aug, [facility] [place] [facility] [address] [id number] [place] [address] Aug, [facility] [place] [facility] [address] [id number] [place] [address] Jul, [facility] [place] [facility] [address] [id number] [place] [address] Jul, [facility] [place] [facility] [address] [id number] [place] [address] June, [facility] [place] [facility] [address] [id number] [place] [address] June, [facility] [place] [facility] [address] [id number] [place] [address] May, [facility] [place] [facility] [address] [id number] [place] [address] May, [facility] [place] [facility] [address] [id number] [place] [address] May, [facility] [place] [facility] [address] [id number] [place] [address] May, [facility] [address] [id number] [place] [address] Apr, [facility] [place] [facility] [address] [id number] [place] [address] Apr, [facility] [place] [facility] [address] [id number] [place] [address] Apr, [facility] [address] [id number] [place] [address] Apr, [facility] [place] [facility] [address] [id number] [place] [address] Mar, [facility] [address] [id number] [place] [address] Mar, [facility] [address] [id number] [place] [address] Feb, [facility] [address] [id number] [place] [address] Feb, [facility] [address] [id number] [place] [address] Feb, [facility] [address] [id number] [place] [address] Feb, [facility] [address] [id number] [place] [address] Feb, [facility] [place] [facility] [address] [id number] [place] [address] Jan, [facility] [place] [facility] [address] [id number] [place] [address] Dec, [facility] [place] [facility] [address] [id number] [place] [address] Dec, [facility] [place] [facility] [address] [id number], [place] [address] Dec, [facility] [address] [id number], [place] [address] Nov, [facility] [address] [id number], [place] [address] Nov, [facility] [address] [id number], [place] [address] Aug, [facility] [address], [place] [address] Jan, [facility] [address], [place] [address] Dec, [facility] [address], [place] [address] Nov, [facility] [address], [place] [address] Jan, [facility] [address] [id number], [place] [address] Jan, IMMUNIZATIONS No Known Immunizations SOCIAL HISTORY Never Assessed REASON FOR VISIT Medication refill request PLAN OF CARE VITAL SIGNS MEDICATIONS Medication Instructions Dosage Frequency Start Date End Date Duration Status Hysingla ER 40 MG Orally Once a day 1 tablet 24h Apr, 30 days Active RESULTS No Results PROCEDURES No Known procedures [...] Morbid (severe) obesity due to excess calories Surgical History back surgery x 4 Surgical History carpel tunnel right hand Surgical History hysterectomy Surgical History surgery on left breast Surgical History x 3 Hospitalization History [facility] Hospitalization History lt breast surgery(cancer)
--- OUTSIDE RECORDS SUMMARY | 2018-07-20 06:29 | XMS REPORT ---
Author Author LAMBERTO MCCORMACK [facility] eClinicalWorks Address Unknown Phone Unavailable Care Team Providers Care Launch Operator Name Role Phone LAMBERTO MCCORMACK CP Unavailable Allergies, Adverse Reactions, Alerts Substance Reaction Event Type Sulfamethoxazole-Trimethoprim nausea Drug Allergy Darvon Info Not Available Drug Allergy Oxycodone Info Not Available Drug Allergy Problems Problem Type Condition Code Onset Dates Condition Status Problem Panic disorder F41.0 Active Problem Borderline personality disorder F60.3 Active Problem Major depressive disorder, recurrent episode, moderate F33.1 Active Assessment Panic disorder F41.0 Active Assessment Borderline personality disorder F60.3 Active Problem Posttraumatic stress disorder 309.81 Active Assessment Major depressive disorder, recurrent episode, moderate F33.1 Active Medications No Known Medications Procedures Procedure Coding System Code Date Psychotherapy, patient &/family, 45 minutes, established patient CPT-4 81515 Mar 28, 2015 [facility] MENTAL HEALTH ESTAB PT CPT-4 G0470 Mar 28, 2015 Results No Known Results Summary Purpose eClinicalWorks Submission
--- OUTSIDE RECORDS SUMMARY | 2018-07-20 06:29 | XMS REPORT ---
Author Author Migration, Doctor Organization [facility] Address Unknown Phone Unavailable Care Team Providers Care Paving Stone Installer Name Role Phone Migration, Doctor Unavailable Unavailable PROBLEMS Type Condition ICD9-CM Code WAD16-LE Code Onset Dates Condition Status SNOMED Code Problem Other chronic pain G89.29 Active 97910395 Problem Open wound of right foot, initial encounter S91.301A Active 07392285701163643 Problem Arthritis M19.90 Active 0853495 Problem Osteoarthritis M19.90 Active 435848635 Problem Major depression F32.9 Active 659088768 Problem Essential hypertension I10 Active 74080920 Problem GERD (gastroesophageal reflux disease) K21.9 Active 303945759 Problem Insomnia G47.00 Active 614555598 Problem Breast cancer C50.919 Active 258184114 Problem Spinal stenosis M48.00 Active 15905408 Problem Migraine G43.909 Active 73473541 Problem Migraine with aura and without status migrainosus, not intractable G43.109 Active 6032873 Problem Anxiety F41.9 Active 05336086 Problem Panic disorder F41.0 Active 211349674 Problem Functional urinary incontinence R39.81 Active 168614676 Problem Hypothyroidism E03.9 Active 20782935 Problem Major depressive disorder, recurrent episode, moderate F33.1 Active 644249056 Problem Borderline personality disorder F60.3 Active 76877905 Problem Morbid (severe) obesity due to excess calories E66.01 Active 202356370 Problem IZABEL on CPAP G47.33 Active 88927846 Problem Type 2 diabetes mellitus E11.9 Active 31871954 Problem Diabetic polyneuropathy associated with type 2 diabetes mellitus E11.42 Active 00107565 ALLERGIES No Information ENCOUNTERS Encounter Location Date Diagnosis [address] [address] Aug, [address] [address] May, [address] [address] May, [facility] [address] [address] May, Hypothyroidism E03.9 ; Type 2 diabetes mellitus E11.9 and Morbid obesity E66.01 [facility] [address] [address] May, Morbid obesity E66.01 [facility] [address] [facility] [id number] [place] [address] May, Peripheral edema R60.9 [facility] [address] [facility] [id number] [place] [address] 08 May, 2018 Peripheral edema R60.9 ; Weight gain R63.5 ; Shortness of breath R06.02 and Morbid obesity E66.01 [facility] [address] [place] [address] May, Pedal edema R60.0 and Morbid obesity E66.01 [facility] [address] [address] May, [facility] [address] [address] May, [facility] [address] [address] May, [facility] [address] [facility] [id number] [address] Apr, Bilateral lower extremity edema R60.0 ; Morbid obesity E66.01 and Weight gain R63.5 [facility] [address] [address] Apr, [facility] [address] [address] Apr, [facility] [address] [address] Apr, Migraine with aura and without status migrainosus, not intractable G43.109 [facility] [address] [address] Apr, [facility] [address] [address] Apr, [facility] [address] [address] Apr, [facility] [address] [address] Apr, [facility] [address] [address] Apr, [facility] [address] [address] Apr, Type 2 diabetes mellitus E11.9 ; Pain in right knee M25.561 ; Other chronic pain G89.29 ; Pain in right shoulder M25.511 ; Morbid obesity E66.01 and Diabetic polyneuropathy associated with type 2 diabetes mellitus E11.42 [facility] [address] [address] Apr, [facility] [address] [address] Apr, [facility] [address] [place] [address] Mar, Open wound of right foot, initial encounter S91.301A and Morbid obesity E66.01 [facility] [address] [place] [address] Mar, Dysuria R30.0 and Painful urination R30.9 [facility] [address] [address] Mar, Depression, major, recurrent, moderate 296.32 [facility] [address] [address] Mar, [facility] [address] [address] Mar, [facility] [address] [address] Feb, Dental examination Z01.20 [facility] [address] [address] Nov, [facility] [id number] [place] [address] Nov, [facility] [address] [address] 08 Mar, 2015 Major depressive disorder, recurrent episode, moderate F33.1 ; Panic disorder F41.0 and Borderline personality disorder F60.3 [facility] [address] [address] Sep, Depression, major, recurrent, moderate 296.32 ; Agoraphobia with panic disorder 300.21 and Borderline personality disorder 301.83 [facility] [id number] [place] [address] Aug, Depression, major, recurrent, moderate 296.32 ; Panic disorder without agoraphobia 300.01 and Borderline personality disorder 301.83 [facility] [id number] [place] [address] Jul, Depression, major, recurrent, moderate 296.32 ; Agoraphobia with panic disorder 300.21 and Posttraumatic stress disorder 309.81 [facility] [id number] [place] [address] 30 May, 2014 [facility] [id number] [place] [address] 14 May, 2014 [facility] [id number] [address] May, [facility] [id number] [place] [address] Apr, [facility] [address] [address] Apr, [facility] [id number] [place] [address] 05 Apr, 2014 [facility] [id number] [place] [address] 05 Apr, 2014 [facility] [address] [place] [address] 16 Mar, 2014 [facility] [place] [facility] [address] [id number] [place] [address] Mar, 2014 [facility] [place] [facility] [address] [id number] [place] [address] Mar, [facility] [place] [facility] [address] [id number] [place] [address] Mar, [facility] [place] [facility] [address] [id number] [place] [address] Feb, [facility] [place] [facility] [address] [id number] [place] [address] Feb, [facility] [place] [facility] [address] [id number] [place] [address] Jan, [facility] [place] [facility] [address] [id number] [place] [address] Jan, [facility] [place] [facility] [address] [id number] [place] [address] Jan, [facility] [place] [facility] [address] [id number] [place] [address] Jan, [facility] [place] [facility] [address] [id number] [id number] Dec, [facility] [place] [facility] [address] [id number] [place] [address] Dec, [facility] [place] [facility] [address] [id number] [place] [address] Dec, [facility] [place] [facility] [address] [id number] [place] [address] Dec, [facility] [place] [facility] [address] [id number] [place] [address] Dec, [facility] [place] [facility] [address] [id number] [place] [address] Nov, [facility] [place] [facility] [address] [id number] [place] [address] Nov, [facility] [place] [facility] [address] [id number] [place] [address] Nov, [facility] [place] [facility] [address] [id number] [place] [address] Nov, [facility] [place] [facility] [address] [id number] [place] [address] Nov, [facility] [place] [facility] [address] [id number] [place] [address] Nov, [facility] [place] [facility] [address] [id number] [place] [address] Nov, [facility] [place] [facility] [address] [id number] [place] [address] Nov, [facility] [place] [facility] [address] [id number] [place] [address] Oct, [facility] [place] [facility] [address] [id number] [place] [address] Oct, [facility] [place] [facility] [address] [id number] [place] [address] Sep, [facility] [place] [facility] [address] [id number] [place] [address] Sep, [facility] [place] [facility] [address] [id number] [place] [address] Sep, [facility] [place] [facility] [address] [id number] [place] [address] Sep, [facility] [place] [facility] [address] [id number] [place] [address] Sep, [facility] [place] [facility] [address] [id number] [place] [address] Sep, [facility] [place] [facility] [address] [id number] [place] [address] Jul, [facility] [place] [facility] [address] [id number] [place] [address] Jul, [facility] [address] [id number] [place] [address] June, [facility] [place] [facility] [address] [id number] [place] [address] June, [facility] [place] [facility] [address] [id number] [place] [address] June, [facility] [place] [facility] [address] [id number] [place] [address] June, [facility] [place] [facility] [address] [id number] [place] [address] May, [facility] [place] [facility] [address] [id number] [place] [address] May, [facility] [place] [facility] [address] [id number] [place] [address] May, [facility] [place] [facility] [address] [id number] [place] [address] May, [facility] [place] [facility] [address] [id number] [place] [address] Apr, [facility] [place] [facility] [address] [id number] [place] [address] Apr, [facility] [place] [facility] [address] [id number] [place] [address] Mar, [facility] [place] [facility] [address] [id number] [place] [address] Mar, [facility] [place] [facility] [address] [id number] [place] [address] Feb, [facility] [place] [facility] [address] [id number] [place] [address] Feb, [facility] [place] [facility] [address] [id number] [place] [address] Feb, [facility] [place] [facility] [address] [id number] [place] [address] Feb, [facility] [place] [facility] [address] [id number] [place] [address] Dec, [facility] [place] [facility] [address] [id number] [place] [address] Dec, [facility] [place] [facility] [address] [id number] [place] [address] Dec, [facility] [place] [facility] [address] [id number] [place] [address] Dec, [facility] [place] [facility] [address] [id number] [place] [address] Nov, [facility] [place] [facility] [address] [id number] [place] [address] Nov, [facility] [place] [facility] [address] [id number] [place] [address] Nov, [facility] [place] [facility] [address] [id number] [place] [address] Nov, [facility] [place] [facility] [address] [id number] [place] [address] 23 Oct, 2012 [facility] [place] [facility] [address] [id number] [place] [address] 16 Oct, 2012 [facility] [place] [facility] [address] [id number] [place] [address] 10 Oct, 2012 [facility] [place] [facility] [address] [id number] [place] [address] 03 Oct, 2012 [facility] [place] [facility] [address] [id number] [place] [address] 31 Aug, 2012 [facility] [place] [facility] [address] [id number] [place] [address] 26 Aug, 2012 [facility] [place] [facility] [address] [id number] [place] [address] Aug, [facility] [address] [id number] [place] [address] Aug, [facility] [address] [id number] [place] [address] Aug, [facility] [address] [id number] [place] [address] Jul, [facility] [address] [id number] [place] [address] June, [facility] [address] [id number] [place] [address] May, [facility] [address] [id number] [place] [address] Apr, [facility] [address] [facility] [id number] [place] [address] Mar, [facility] [address] [id number] [place] [address] Mar, [facility] [address] [id number] [place] [address] Jan, [facility] [address] [id number] [place] [address] Jan, [facility] [address] [id number] [place] [address] Jan, [facility] [place] [facility] [address] [id number] [place] [address] Jan, [facility] [address] [id number] [place] [address] Jan, [facility] [address] [id number] [place] [address] Jan, [facility] [address] [facility] [id number] [place] [address] Jan, [facility] [place] [facility] [address] [id number] [place] [address] Jan, [facility] [place] [facility] [address] [id number] [place] [address] Jan, [facility] [place] [facility] [address] [id number] [place] [address] Jan, [facility] [place] [facility] [address] [id number] [place] [address] Dec, [facility] [place] [facility] [address] [id number] [place] [address] Dec, [facility] [place] [facility] [address] [id number] [place] [address] Dec, [facility] [place] [facility] [address] [id number] [place] [address] Dec, [facility] [place] [facility] [address] [id number] [place] [address] Dec, [facility] [place] [facility] [address] [id number] [place] [address] Dec, [facility] [place] [facility] [address] [id number] [place] [address] Nov, [facility] [place] [facility] [address] [id number] [place] [address] Nov, [facility] [place] [facility] [address] [id number] [place] [address] 24 Oct, 2011 [facility] [place] [facility] [address] [id number] [place] [address] 24 Oct, 2011 [facility] [place] [facility] [address] [id number] [place] [address] 24 Oct, 2011 [facility] [place] [facility] [address] [id number] [place] [address] 11 Oct, 2011 [facility] [place] [facility] [address] [id number] [place] [address] Sep, [facility] [place] [facility] [address] [id number] [place] [address] Sep, [facility] [place] [facility] [address] [id number] [place] [address] Aug, [facility] [place] [facility] [address] [id number] [place] [address] Aug, [facility] [place] [facility] [address] [id number] [place] [address] Aug, [facility] [place] [facility] [address] [id number] [place] [address] Aug, [facility] [place] [facility] [address] [id number] [place] [address] Aug, [facility] [place] [facility] [address] [id number] [place] [address] Aug, [facility] [place] [facility] [address] [id number] [place] [address] Jul, [facility] [place] [facility] [address] [id number] [place] [address] Jul, [facility] [place] [facility] [address] [id number] [place] [address] June, [facility] [place] [facility] [address] [id number] [place] [address] June, [facility] [place] [facility] [address] [id number] [place] [address] May, [facility] [place] [facility] [address] [id number] [place] [address] May, [facility] [place] [facility] [address] [id number] [place] [address] May, [facility] [place] [facility] [address] [id number] [place] [address] May, [facility] [place] [facility] [address] [id number] [place] [address] Apr, [facility] [address] [id number] [place] [address] Apr, [facility] [place] [facility] [address] [id number] [place] [address] Apr, [facility] [address] [id number] [place] [address] Apr, [facility] [place] [facility] [address] [id number] [place] [address] Mar, [facility] [address] [id number] [place] [address] Mar, [facility] [address] [id number] [place] [address] Feb, [facility] [address] [id number] [place] [address] Feb, [facility] [address] [id number] [place] [address] Feb, [facility] [address] [id number] [place] [address] Feb, [facility] [address] [facility] [id number] [place] [address] Feb, [facility] [address] [id number] [place] [address] Jan, [facility] [address] [id number] [place] [address] Dec, [facility] [place] [facility] [address] [id number] [place] [address] Dec, [facility] [place] [facility] [address] [id number] [place] [address] Dec, [facility] [place] [facility] [address] [id number] [place] [address] Nov, [facility] [id number] [address] Nov, [facility] [id number] [address] Aug, [facility] [id number] [address] Jan, [facility] [address] [address] Dec, [facility] [id number] [address] Nov, [facility] [address] [address] Jan, [facility] [id number] [address] Jan, IMMUNIZATIONS No Known Immunizations SOCIAL HISTORY Never Assessed REASON FOR VISIT [facility] PLAN OF CARE VITAL SIGNS MEDICATIONS Unknown [...] breast Surgical History x 3 Hospitalization History [facility] [address] [place] [address] for back surgery Hospitalization History lt breast surgery(cancer)
--- OUTSIDE RECORDS SUMMARY | 2018-07-20 06:29 | XMS REPORT ---
Author Author LAMBERTO MCCORMACK [facility] [employer] Address Unknown Phone Unavailable Care Team Providers Care Senior Mobile Application Developer Name Role Phone LAMBERTO MCCORMACK Unavailable Allergies [...]
--- OUTSIDE RECORDS SUMMARY | 2018-07-20 06:30 | XMS REPORT ---
Author Author MARCELO Johnson Organization [facility] Address Unknown Care Team Providers Care Aluminum Boats Assembler Name Role Phone carolineDianne MARCELO Unavailable PROBLEMS Type Condition ICD9-CM Code [id number] Code Onset Dates Condition Status SNOMED Code Problem Borderline personality disorder F60.3 Active 38394177 Problem Major depressive disorder, recurrent episode, moderate F33.1 Active 976451092 Problem Panic disorder F41.0 Active 443744878 Problem Posttraumatic stress disorder 309.81 Active 35143685 ALLERGIES Substance Reaction Event Type Date Status Sulfamethoxazole-Trimethoprim nausea Drug Allergy Feb, Active Darvon Unknown Drug Allergy Feb, Active Oxycodone Unknown Drug Allergy Feb, Active SOCIAL HISTORY No smoking Hx information available PLAN OF CARE Activity Details Follow Up prn Reason:1 hr te (upper) VITAL SIGNS Height 65 in 2016-02-28 Blood pressure systolic 129 mmHg 2016-02-28 Blood pressure diastolic 84 mmHg 2016-02-28 MEDICATIONS Medication Instructions Dosage Frequency Start Date End Date Duration Status Baclofen 10 MG/5ML Active Simvastatin 40 MG Orally Once a day 1 tablet in the evening 24h Active Zolpidem Tartrate 10 MG Orally Once a day 1 tablet at bedtime as needed 24h Active Nystatin 574145 UNIT/ML Mouth/Throat Four times a day 4 ml 6h Active Metformin HCl 500 MG Orally Twice a day 1 tablet with meals 12h Active Ciprofloxacin 500 MG/5ML (10%) Orally Twice a day 5 ml 12h Active Cephalexin 500 MG Orally Twice a day 1 capsule 12h Active Meloxicam by oral route Apr, Active Amoxicillin 500 MG Orally 4 times a day 1 capsule 6h Feb, Feb, 7 days Active Diphenoxylate-Atropine 2.5-0.025 MG/5ML Orally Four times a day 5 ml as needed 6h Active Venlafaxine HCl ER 150 MG Orally 2 times a day 1 capsule with food 12h 30 Active Movantik 25 MG Orally Once a day 1 tablet in the morning 24h Active Omeprazole 20 MG Orally Once a day 2 capsules 24h Active Polyethylene Glycol - Active Enalapril Maleate 5 MG Orally Once a day 1 tablet 24h Active Fluvirin 0.5 ML Active Lorazepam 1 MG Orally 4 times a day for anxiety 1 tablet as needed Oct, 30 days Active Sumatriptan 20 MG/ACT Nasally Once a day 1 puff as needed one time 24h Active Promethazine HCl 25 MG/ML Injection every 6 hrs 1 ml as needed 6h Active Nitrofurantoin Monohyd Macro 100 MG Orally every 12 hrs 1 capsule with food 12h Active Tramadol HCl 50 MG Orally every 6 hrs 1 tablet as needed 6h Active Venlafaxine HCl ER 150 MG Orally 2 times a day 1 capsule with food 12h Jul, 30 day(s) Active Lyrica 50 MG Orally Three times a day 1 capsule 8h Active Gabapentin 300 MG Orally Three times a day 1 capsule 8h Active Trazodone HCl 50 TAKE 1 AND 1/2 TO 2 TABLETS BY MOUTH AT BEDTIME NEEDED FOR SLEEP 30 Active Tamoxifen Citrate 20 MG Orally Once a day 1 tablet 24h Active Aripiprazole 10 MG Orally Once a day 1 tablet 24h Active Hydrocodone-Acetaminophen 10-325 mg PRN pain 20 Apr, 2013 Active RESULTS No Results PROCEDURES Procedure Date Ordered Related Diagnosis Body Site LTD ORAL EVALUATION - PROBLEM FOCUS Feb 28, 2016 INTRAORL-PERIAPICAL 1 FILM [id number] Feb 28, 2016 IMMUNIZATIONS No Known Immunizations
== END 2018-07-20 00:08 | disposition home or self-care (01) ==
LOC: EDUNIT# 22:16 → ER FS 22:17
DX: N30.00 Acute cystitis without hematuria (principal); Z88.2 Allergy status to sulfonamides; Z88.0 Allergy status to penicillin; Z88.1 Allergy status to other antibiotic agents; Z88.8 Allergy status to other drugs, medicaments and biological substances
CPT/HCPCS: 36415; 80053; 81000; 83690; 85025; 87088; 96361; 96374; 96375

== ENCOUNTER → 2018-08-06 | Outpatient (CLI) | payer MEDICARE, MEDICAID ==
[~2018-08-06] MED LIST: CEPH500T PO; ONDA4TAB11 PO
[2018-08-06 16:16] LABS: BASOPHILS % (AUTO) 0 % (0-10); EOSINOPHILS # (AUTO) 0.3 10^3/uL (0.0-0.3); EOSINOPHILS % (AUTO) 3 % (0-10); HEMATOCRIT 38 % (35-52); HEMOGLOBIN 12.2 G/DL (11.5-16.0); LYMPHOCYTES # (AUTO) 2.3 X 10^3 (1.0-4.0); LYMPHOCYTES % (AUTO) 25 % (12-44); MEAN CORPUSCULAR HEMOGLOBIN 30 PG (25-34); MEAN CORPUSCULAR HGB CONC 32 G/DL (32-36); MEAN CORPUSCULAR VOLUME 93 FL (80-99); MEAN PLATELET VOLUME 8.8 FL (7.4-10.4); MONOCYTES # (AUTO) 0.6 X 10^3 (0.0-1.0); MONOCYTES % (AUTO) 6 % (0-12); NEUTROPHILS # (AUTO) 6.3 X 10^3 (1.8-7.8); NEUTROPHILS % (AUTO) 67 % (42-75); PLATELET COUNT 283 10^3/uL (130-400); WHITE BLOOD COUNT 9.5 10^3/uL (4.3-11.0)
[2018-08-06 16:34] LABS: URIC ACID 10.4 MG/DL (2.6-7.2)
== END ==
LOC: LAB 15:59
PROVIDERS: ATTEND Podiatrist Foot & Ankle Surgery
DX: R60.9 Edema, unspecified (principal); R52 Pain, unspecified
CPT/HCPCS: 36415; 84550; 85025; 86038; 86141; 86430; 86618; 86666; 86668; 86757

== ENCOUNTER 2018-10-03 10:54 | Emergency (ER) | payer MEDICARE, MEDICAID ==
[~2018-10-03] VITALS: Ht 160 cm; Wt 113.4 kg
[2018-10-03] MEDS ORDERED: KETOROLAC 15 MG/ML VIAL IVP ONE (11:15)
[2018-10-03] MEDS ORDERED: ONDANSETRON 4 MG/2 ML (SDV) Z0FRAN IVP ONE (11:15)
[2018-10-03] MEDS ORDERED: TETANUS,DIPTH,PERTUSS P/F (BOOSTRIX) 0.5 ML VIAL IM ONE (11:15)
[2018-10-03] MEDS ORDERED: CATHETER FLUSH 10 ML SYR IV PRN (11:15)
[2018-10-03] MEDS ORDERED: NS IV 1000 ML 1,000 ML IV SCH (11:15)
[2018-10-03] MEDS ORDERED: fentaNYL INJECTION 100 MCG/2 ML AMP IVP ONE (11:15)
[2018-10-03] MEDS ORDERED: IOHEXOL 350 MG/ML 100 ML (OMNIPAQUE 350) VIAL IV ONE (11:15)
[2018-10-03] MEDS ORDERED: NS 100 ML (IVPB) BAG IV ONE (11:15)
[2018-10-03] MEDS ORDERED: HOLD METFORMIN - RECEIVED CONTRAST 20 ML VIAL IV SCH (11:15)
--- NOTE | 2018-10-03 11:19 | ED General ---
General Chief Complaint: Trauma-Non Activation Stated Complaint: FALL Nursing Triage Note: Patient c/o generalized pain but states the pain is worse in her lower back. Her daughter was pushing her in her seated walker when she fell backward hitting the back of her head on the concrete. Abrasion to left elbow and back of head. Nursing Sepsis Screen: No Definite Risk History of Present Illness Date Seen by Provider: Oct 03, 2018 Time Seen by Provider: 11:14 Initial Comments Patient presenting to the emergency department for evaluation of multiple areas of pain status post fall. Patient is mobile via wheelchair and her daughter was pushing her and somehow the wheelchair tipped backwards and she fell striking h er head on the concrete pavement. She has an abrasion but no open laceration there as well as an abrasion to her left elbow but no joint pain on movement. She says that this pain did cause her multiple areas of pain including her neck left flank low back and left upper quadrant of her abdomen and left lower chest. Her tetanus status is unclear so it will be updated here. She had no loss of consciousness but she says she does have a headache. She says that she does not take any blood thinners. She is in nad with normal VS. Location Injury Occurred: Home Allergies and Home Medications Allergies Coded Allergies: Sulfa (Sulfonamide Antibiotics) (Verified Allergy, Intermediate, Rash, 07/19/18) azithromycin (Verified Allergy, Intermediate, Nausea, 07/19/18) nausea and vomiting oxycodone (Verified Allergy, Intermediate, Rash, 07/19/18) prednisone (Verified Allergy, Intermediate, Rash, 07/19/18) Rash, Nausea/Vomiting propoxyphene (Verified Allergy, Intermediate, Rash, 07/19/18) vilazodone (Verified Allergy, Intermediate, Diarrhea, 07/19/18) aspartame (Verified Allergy, Unknown, 07/19/18) Patient Home Medication List Home Medication List Reviewed: Yes Review of Systems Review of Systems Constitutional: no symptoms reported EENTM: no symptoms reported Respiratory: no symptoms reported Cardiovascular: chest pain Gastrointestinal: abdominal pain (LUQ) Genitourinary: no symptoms reported Musculoskeletal: back pain, joint pain Skin: other (abrasions) Psychiatric/Neurological: Headache All Other Systems Reviewed Negative Unless Noted: Yes Past Ykrgpiq-Iprspw-Vqbpil Hx Patient Social History Alcohol Use: Denies Use Recreational Drug Use: No 2nd Hand Smoke Exposure: No Recent Hopitalizations: No Physical Abuse: No Sexual Abuse: No Mistreated: No Fear: No Seasonal Allergies Seasonal Allergies: No Past Medical History Surgeries: Yes Section, Hysterectomy Respiratory: Yes Sleep Apnea Cardiac: Yes Hypertension 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 0oz. [id number]; BMI Method:Estimated General Appearance: No Apparent Distress, Chronically ill HEENT: PERRL/EOMI Neck: Supple, Tender Midline Respiratory: Lungs Clear, No Respiratory Distress, Other (L lower chest ttp.) Cardiovascular: Regular Rate, Rhythm, Normal Peripheral Pulses Gastrointestinal: Soft, Tenderness (LUQ with no rebound or guarding) Back: CVA Tenderness (L), Vertebral Tenderness Extremity: Normal Capillary Refill, Other (all joints ranged with no significant ttp) Neurologic/Psychiatric: Alert, Oriented x3 Skin: Normal Color, Warm/Dry, Other (abrasion to back of head and L elbow) Progress/Results/Core Measures Suspected Sepsis Recent Fever Within 48 Hours: No Infection Criteria Present: None New/Unexplained Altered Menta: No Sepsis Screen: No Definite Risk SIRS Temperature:98.0 Pulse: 86 Respiratory Rate: 20 Laboratory Tests 10/03/18 11:25: White Blood Count 10.5 Blood Pressure 99 /70 Mean: 80 Laboratory Tests 10/03/18 11:25: Creatinine 1.44H, INR Comment 1.0, Platelet Count 287, Total Bilirubin 0.2 Results/Orders Lab Results Laboratory Tests Test 10/03/18 11:25 Range/Units White Blood Count 10.5 4.3-11.0 10^3/uL Red Blood Count 4.09 L 4.35-5.85 10^6/uL Hemoglobin 12.3 11.5-16.0 G/DL Hematocrit 39 35-52 % Mean Corpuscular Volume 94 80-99 FL Mean Corpuscular Hemoglobin 30 25-34 PG Mean Corpuscular Hemoglobin Concent 32 32-36 G/DL Red Cell Distribution Width 12.9 10.0-14.5 % Platelet Count 287 130-400 10^3/uL Mean Platelet Volume 9.4 7.4-10.4 FL Neutrophils (%) (Auto) 66 42-75 % Lymphocytes (%) (Auto) 24 12-44 % Monocytes (%) (Auto) 7 0-12 % Eosinophils (%) (Auto) 2 0-10 % Basophils (%) (Auto) 1 0-10 % Neutrophils # (Auto) 6.9 1.8-7.8 X 10^3 Lymphocytes # (Auto) 2.5 1.0-4.0 X 10^3 Monocytes # (Auto) 0.7 0.0-1.0 X 10^3 Eosinophils # (Auto) 0.2 0.0-0.3 10^3/uL Basophils # (Auto) 0.1 0.0-0.1 10^3/uL Prothrombin Time 14.0 12.2-14.7 SEC INR Comment 1.0 0.8-1.4 Activated Partial Thromboplast Time 26 24-35 SEC Sodium Level 137 135-145 MMOL/L Potassium Level 4.6 3.6-5.0 MMOL/L Chloride Level 95 L 98-107 MMOL/L Carbon Dioxide Level 28 21-32 MMOL/L Anion Gap 14 5-14 MMOL/L Blood Urea Nitrogen 36 H 7-18 MG/DL Creatinine 1.44 H 0.60-1.30 MG/DL Estimat Glomerular Filtration Rate 37 BUN/Creatinine Ratio 25 Glucose Level 174 H 70-105 MG/DL Calcium Level 9.2 8.5-10.1 MG/DL Corrected Calcium 9.2 8.5-10.1 MG/DL Total Bilirubin 0.2 0.1-1.0 MG/DL Aspartate Amino Transf (AST/SGOT) 12 5-34 U/L Alanine Aminotransferase (ALT/SGPT) 9 0-55 U/L Alkaline Phosphatase 111 40-136 U/L Total Protein 7.4 6.4-8.2 GM/DL Albumin 4.0 3.2-4.5 GM/DL My Orders Orders - STEW HERBERT DO Cbc With Automated Diff (10/03/18 11:10) Comprehensive Metabolic Panel (10/03/18 11:10) Partial Thromboplastin Time (10/03/18 11:10) Protime With Inr (10/03/18 11:10) Ketorolac Injection (Toradol Injection) (10/03/18 11:15) Fentanyl Injection (Sublimaze Injection (10/03/18 11:15) Ondansetron Injection (Zofran Injectio (10/03/18 11:15) Ns Iv 1000 Ml (Sodium Chloride 0.9%) (10/03/18 11:15) Ct Head/Cervical Spine Wo (10/03/18 11:10) Dipht,Pertuss(Acell),Tet Adult (Boostrix (10/03/18 11:15) Ct Thoracic/Lumbar Spine Wo (10/03/18 11:10) Iohexol Injection (Omnipaque 350 Mg/Ml 1 (10/03/18 11:15) Received Contrast (Hold Metformin- Contr (10/03/18 11:15) Sodium Chloride Flush (Catheter Flush Sy (10/03/18 11:15) Ns (Ivpb) (Sodium Chloride 0.9% Ivpb Bag (10/03/18 11:15) Ct Chest/Abdomen/Pelvis Wo (10/03/18 11:10) Medications Given in ED Current Medications Medications Dose Ordered Sig/Bebeto Route Start Time Stop Time Status Last Admin Dose Admin Diphtheria/ Tetanus/Acell Pertussis 0.5 ml ONCE ONCE IM 10/03/18 11:15 10/03/18 11:25 DC 10/03/18 12:38 0.5 ML Fentanyl Citrate 50 mcg ONCE ONCE IVP 10/03/18 11:15 10/03/18 11:16 DC 10/03/18 11:31 50 MCG Ketorolac Tromethamine 15 mg ONCE ONCE IVP 10/03/18 11:15 10/03/18 11:16 DC 10/03/18 11:30 15 MG Ondansetron HCl 4 mg ONCE ONCE IVP 10/03/18 11:15 10/03/18 11:16 DC 10/03/18 11:30 4 MG Vital Signs/I&O 10/03/18 10/03/18 10:58 11:00 Temp 98.0 98.0 Pulse 86 86 Resp 20 20 B/P (MAP) 99/70 (80) 99/70 (80) Pulse Ox 98 98 O2 Delivery Room Air Room Air Capillary Refill : Less Than 3 Seconds Blood Pressure Mean: 80 Progress Note : Progress Note Patient will get labs imaging I will treat symptoms and reassess. Pain much better on reexamination and her repeat neurologic exam is normal. Workup is completely negative for acute process. All incidental findings were discussed with patient including laboratory and imaging abnormalities the need for follow-up with primary care provider. Pain is controlled and she appears to be at her baseline. Given she appears well with normal vital signs benign physical exam workup she will be discharged in stable condition told to follow up primary care provider on Saturday or Saturday come back to the ED sooner with worsening pain neurologic changes other general concerns. Patient aware and agreeable with plan and verbalized understanding of the above instructions. Departure Impression Primary Impression: CHI (closed head injury) Additional Impressions: Cervical strain, acute Back sprain Multiple abrasions Rib contusion Disposition: HOME, SELF-CARE Condition: Stable Departure-Patient Inst. Referrals: SELFNITISH MD (PCP/Family) Primary Care Physician Patient Instructions: Closed Head Injury (DC), Bruised Rib (DC) Add. Discharge Instructions: All discharge instructions reviewed with patient and/or family. Voiced understanding. Take the ibuprofen for pain and the norco for breakthrough pain at night to help you sleep if you are having too much pain. Follow with PCP on saturday or saturday. Come back with any concerns. Thank you! Scripts Hydrocodone/Acetaminophen (Maramec 5-325 Tablet) 1 Each Tablet 1 TAB PO QHS for Pain MDD 10 TABS for 7 Days, #7 TAB Prov: STEW HERBERT DO 10/03/18 Ibuprofen (Ibuprofen) 400 Mg Tablet 400 MG PO Q6H PRN for PAIN, #20 TAB Prov: STEW HERBERT DO 10/03/18 STWE HERBERT DO Oct 03, 2018 11:19
[2018-10-03] MEDS ORDERED: ENAL5TAB (11:32)
[2018-10-03] MEDS ORDERED: FURO20TA4 (11:32)
[2018-10-03] MEDS ORDERED: VENL150C98 (11:32)
[2018-10-03] MEDS ORDERED: LORA1TAB (11:32)
[2018-10-03] MEDS ORDERED: GABA-488 (11:32)
[2018-10-03] MEDS ORDERED: LEVO125T6 (11:32)
[2018-10-03] MEDS ORDERED: POTA-51 (11:32)
[2018-10-03] MEDS ORDERED: MIRA50TA (11:32)
[2018-10-03] MEDS ORDERED: ROSU20TA32 (11:32)
[2018-10-03] MEDS ORDERED: LORA10TA7 (11:32)
[2018-10-03] MEDS ORDERED: DOCU-244 (11:32)
[2018-10-03] MEDS ORDERED: NALO25TA (11:32)
[2018-10-03] MEDS ORDERED: HYDR40TA (11:32)
[2018-10-03] MEDS ORDERED: TIMOLOL (11:32)
[2018-10-03] MEDS ORDERED: METF500T8 (11:32)
[2018-10-03] MEDS ORDERED: OMEP20CA13 (11:32)
[2018-10-03] MEDS ORDERED: ZOLP10TA5 (11:32)
[2018-10-03] MEDS ORDERED: INDO25CA15 (11:32)
[2018-10-03 11:48] LABS: BASOPHILS # (AUTO) 0.1 10^3/uL (0.0-0.1); BASOPHILS % (AUTO) 1 % (0-10); EOSINOPHILS # (AUTO) 0.2 10^3/uL (0.0-0.3); EOSINOPHILS % (AUTO) 2 % (0-10); HEMATOCRIT 39 % (35-52); HEMOGLOBIN 12.3 G/DL (11.5-16.0); LYMPHOCYTES # (AUTO) 2.5 X 10^3 (1.0-4.0); LYMPHOCYTES % (AUTO) 24 % (12-44); MEAN CORPUSCULAR HEMOGLOBIN 30 PG (25-34); MEAN CORPUSCULAR HGB CONC 32 G/DL (32-36); MEAN CORPUSCULAR VOLUME 94 FL (80-99); MEAN PLATELET VOLUME 9.4 FL (7.4-10.4); MONOCYTES # (AUTO) 0.7 X 10^3 (0.0-1.0); MONOCYTES % (AUTO) 7 % (0-12); NEUTROPHILS # (AUTO) 6.9 X 10^3 (1.8-7.8); NEUTROPHILS % (AUTO) 66 % (42-75); PLATELET COUNT 287 10^3/uL (130-400); RED CELL DISTRIBUTION WIDTH 12.9 % (10.0-14.5); WHITE BLOOD COUNT 10.5 10^3/uL (4.3-11.0)
[2018-10-03 11:56] LABS: BILIRUBIN,TOTAL 0.2 MG/DL (0.1-1.0); CALCIUM 9.2 MG/DL (8.5-10.1); CREATININE SERUM 1.44 MG/DL (0.60-1.30); POTASSIUM 4.6 MMOL/L (3.6-5.0)
[2018-10-03 11:57] LABS: TOTAL PROTEIN 7.4 GM/DL (6.4-8.2)
--- NOTE | 2018-10-03 12:58 | Diagnostic Imaging Report ---
PROCEDURE: CT head and CT cervical spine without contrast. TECHNIQUE: Multiple contiguous axial images were obtained through the brain and cervical spine without the use of intravenous contrast. Sagittal and coronal reformations through the cervical spine were then performed. Auto Exposure Controls were utilized during the CT exam to meet ALARA standards for radiation dose reduction. INDICATION: Traumatic head/neck injury sustained during fall. COMPARISON: None available. FINDINGS: Multiple images are degraded by patient motion which diminishes detail, and interpretation was made in light of this technical confine. CT BRAIN: BRAIN: No parenchymal hemorrhage, midline shift or mass effect. Saul-white matter differentiation is intact. No acute infarct. Mild periventricular and subcortical low-density white matter changes. Mild prominence of the ventricles and Sulci consistent with cortical and cerebellar parenchymal volume loss. EXTRA-AXIAL SPACES: No subdural or epidural collections. ORBITS AND PARANASAL SINUSES: Visualized orbits and globes are intact. Visualized paranasal sinuses and mastoid air cells are clear. CALVARIUM AND SOFT TISSUES: The calvarium is intact. No fractures or suspicious bony lesions. The extracranial soft tissues are unremarkable. CT CERVICAL SPINE: SPINE: No fracture. No acute osseous abnormalities. There is normal cervical lordosis. No subluxation. There is mild multilevel degenerative loss of disc height with endplate osteophytes. No locked or perched facet. SOFT TISSUES AND LUNG APICES: Soft tissues unremarkable. Clear lung apices. IMPRESSION: Exam is limited by patient motion. No acute intracranial pathology, chronic changes consisting of age-related volume loss and mild nonspecific white matter disease, most commonly attributed to small vessel ischemic change. Mild degenerative change of the cervical spine, without evidence of acute fracture or subluxation. Dictated by: Dictated on workstation # [id number]
--- NOTE | 2018-10-03 13:02 | Diagnostic Imaging Report ---
PROCEDURE: CT thoracic and lumbar spine without contrast. TECHNIQUE: Multiple contiguous axial images were obtained through the thoracic and lumbar spine without the use of intravenous contrast. Sagittal and coronal reformations were then performed. INDICATION: Fall, complaining of back pain. CT thoracic spine: Curvature and alignment of the thoracic spine is normal. Vertebral body heights are well-maintained. No acute compression fracture is seen. No paraspinous hematoma is detected. IMPRESSION: No acute bony abnormality is detected. CT lumbar spine: Curvature of the lumbar spine is normal. There is minimal retrolisthesis of L2 on L3 with minimal anterolisthesis of L4 on L5. There are postoperative changes of posterior instrumented fusion with vertical stabilization rods and pedicle screws extending from L3-L5. Hardware does produce moderate artifact. A lateral plate and screws transfix the L3-4 level. No definite hardware fracture or loosening is seen. Vertebral body heights are maintained. No acute bony abnormality is identified. There is multilevel degenerative disc disease with disc space narrowing and marginal spurring as well as multilevel vacuum disc phenomena. Paraspinous tissues are unremarkable. IMPRESSION: Postop changes, as described. No hardware fracture or loosening is seen. No acute bony abnormality is identified. Dictated by: Dictated on workstation # [id number]
--- NOTE | 2018-10-03 13:32 | Diagnostic Imaging Report ---
PROCEDURE: CT chest, abdomen, and pelvis without contrast. TECHNIQUE: Multiple contiguous axial images were obtained through the chest, abdomen, and pelvis without the use of intravenous contrast. Auto Exposure Controls were utilized during the CT exam to meet ALARA standards for radiation dose reduction. INDICATION: Neck, chest, abdomen, and pelvis pain. COMPARISON: There are no prior CT examinations available for comparison. FINDINGS: The images through the thorax show that the heart size is within normal limits. There are no coronary artery calcifications evident. The aorta is not abnormally dilated. There is no mediastinal or hilar adenopathy. The thyroid gland was not well visualized. The lungs are generally clear. There is no evidence for a pulmonary contusion or pneumothorax. There is no sign of failure, pneumonia, or pleural effusion either. The bone windows show no sign of a fracture or of a destructive lesion. There is no obvious breast mass. The sections through the abdomen and pelvis show that the liver is homogeneous and not enlarged. The spleen, pancreas, adrenals, gallbladder, aorta and inferior vena cava, and kidneys are unremarkable for an acute abnormality. The stomach is not well distended and consequently difficult to assess. There is no pelvic mass or free fluid collection noted. The uterus is surgically absent. The urinary bladder is grossly unremarkable. There is no evidence for acute appendicitis. The bone windows are unremarkable for a fracture or for a destructive lesion. There are bilateral pedicle screws in place at L4 and L5 and on the right at L3. There is also an interbody device at L3-L4 and L4-L5. S1 does appear to be a transitional vertebra. IMPRESSION: 1. There is no evidence for an acute abnormality of the chest, abdomen, or pelvis. 2. There are postsurgical changes involving the lower lumbar spine as described above. There is no acute bony abnormality noted. CT of the thoracic and lumbar spine is pending for further study, however. Dictated by: Dictated on workstation # [id number]
[2018-10-03] MEDS ORDERED: HYDR-4226 PO (13:47)
[2018-10-03] MEDS ORDERED: IBUP-1779 PO (13:47)
[2018-10-03 14:00] VITALS: BP 138/66
--- NOTE | 2018-10-03 14:00 | NUR ---
Pt discharged at this time and transported home via dgt. Pt verbalizes understanding of her instructions with numerous repeated questions answered. Pt given 2 scripts. Pt was told by physician no fractures or serious abnormalities noted on CT scans. Pt was instructed to expect soreness from her fall and feeling "stiff and sore" for maybe a week depending on how she does at home without any other added injury.
== END 2018-10-03 14:00 | disposition home or self-care (01) ==
LOC: EDUNIT# 10:54 → ER FS 10:58
DX: S09.90XA Unspecified injury of head, initial encounter (principal); S16.1XXA Strain of muscle, fascia and tendon at neck level, initial encounter; S39.012A Strain of muscle, fascia and tendon of lower back, initial encounter; S20.212A Contusion of left front wall of thorax, initial encounter; S50.312A Abrasion of left elbow, initial encounter; S00.01XA Abrasion of scalp, initial encounter; G47.30 Sleep apnea, unspecified; I10 Essential (primary) hypertension; K21.9 Gastro-esophageal reflux disease without esophagitis; E11.9 Type 2 diabetes mellitus without complications; F41.9 Anxiety disorder, unspecified; Z88.2 Allergy status to sulfonamides; Z88.1 Allergy status to other antibiotic agents; Z88.5 Allergy status to narcotic agent; Z88.8 Allergy status to other drugs, medicaments and biological substances; Z90.710 Acquired absence of both cervix and uterus; W01.198A Fall on same level from slipping, tripping and stumbling with subsequent striking against other object, initial encounter
CPT/HCPCS: 36415; 70450; 71250; 72125; 72128; 72131; 74176; 80053; 85025; 85610; 85730; 90471; 90715; 96361; 96374; 96375

== ENCOUNTER → 2018-11-26 | Outpatient (CLI) | payer MEDICARE, MEDICAID ==
[~2018-11-26] MED LIST changes: +DOCU-244; +ENAL5TAB; +FURO20TA4; +GABA-488; +HYDR-4226 PO; +HYDR40TA; +IBUP-1779 PO; +INDO25CA15; +LEVO125T6; +LORA10TA7; +LORA1TAB; +METF500T8; +MIRA50TA; +NALO25TA; +OMEP20CA13; +POTA-51; +ROSU20TA32; +TIMOLOL; +VENL150C98; +ZOLP10TA5
--- NOTE | 2018-11-26 15:18 | Diagnostic Imaging Report ---
INDICATION: Difficulty breathing. TIME OF EXAM: 03:07 p.m. COMPARISON: No prior studies are available for comparison. FINDINGS: The heart size is normal. The pulmonary vascularity is unremarkable. The lungs are clear. No infiltrate, effusion or pneumothorax is detected. IMPRESSION: No acute cardiopulmonary process is detected. Dictated by: Dictated on workstation # [id number]
== END ==
LOC: RAD FS 14:54
PROVIDERS: ATTEND Nurse Practitioner
DX: R06.00 Dyspnea, unspecified (principal)
CPT/HCPCS: 71046

== ENCOUNTER → 2018-12-02 | Outpatient (CLI) | payer MEDICARE, MEDICAID ==
--- NOTE | 2018-12-02 16:58 | Diagnostic Imaging Report ---
INDICATION: Acute pain. COMPARISON: None available. TECHNIQUE: Three radiographs of the right wrist dated December 02, 2018. FINDINGS: No acute fracture or dislocation. No destructive osseous process. Severe degenerative changes of the first CMC joint are identified with significant joint space narrowing and osteophyte formation. Carpal alignment is well maintained. No suspicious radiopaque foreign body. IMPRESSION: No acute osseous abnormality with advanced degenerative changes involving the first CMC joint. Dictated by: Dictated on workstation # [id number]
== END ==
LOC: RAD FS 15:38
PROVIDERS: ATTEND Nurse Practitioner Family
DX: M19.031 Primary osteoarthritis, right wrist (principal)
CPT/HCPCS: 73110

== ENCOUNTER → 2019-02-19 | Outpatient (CLI) | payer MEDICARE, MEDICAID ==
--- NOTE | 2019-02-19 15:50 | Diagnostic Imaging Report ---
INDICATION: Frequent falls and low back pain. TIME OF EXAM: 3:35 p.m. FINDINGS: Postop changes of posterior instrumented fusion from L3 through L5 is noted. Vertebral body heights are maintained. Hardware appears to be intact. There is also lateral fusion on the left side at the L3-L4 level by plate and screws. There is degenerative disc disease at L5-S1 with disc space narrowing, marginal spurring and vacuum disc phenomenon. There is degenerative disc disease at L2-L3 level with disc space narrowing and vacuum disc. IMPRESSION: Lumbar spondylosis and postsurgical changes. No acute abnormality is detected. Dictated by: Dictated on workstation # [id number]
--- NOTE | 2019-02-19 15:52 | Diagnostic Imaging Report ---
INDICATION: Frequent falls with bilateral hip pain. TIME OF EXAM: 03:31 p.m. EXAMINATION: AP view of the pelvis and multiple views of bilateral hips were obtained. FINDINGS: Femoral acetabular alignment is normal bilaterally. Joint spaces are well-maintained. Both femoral necks appear to be intact. Rami are intact. No fractures are seen. Postop changes in the lumbar spine are noted. IMPRESSION: No acute bony abnormality is identified. Dictated by: Dictated on workstation # [id number]
== END ==
LOC: RAD FS 15:07
PROVIDERS: ATTEND Family Medicine
DX: M25.551 Pain in right hip (principal); M25.552 Pain in left hip; M47.816 Spondylosis without myelopathy or radiculopathy, lumbar region; Z98.890 Other specified postprocedural states
CPT/HCPCS: 72100; 73521

== ENCOUNTER 2019-04-30 20:32 | Emergency (ER) | payer MEDICARE, MEDICAID ==
[~2019-04-30] VITALS: Ht 160 cm; Wt 122.7 kg
[~2019-04-30 20:32] MED LIST changes: +DCS100C; -DOCU-244; -ENAL5TAB; +ENLP5T; -INDO25CA15; +INDO25CA99; +METF500T19; -METF500T8; -OMEP20CA13; +OMEP20CA18
--- NOTE | 2019-04-30 20:52 | ED Fall/Injury ---
General Stated Complaint: BACK PAIN,FELL Source: patient Exam Limitations: no limitations History of Present Illness Date Seen by Provider: Apr 30, 2019 Time Seen by Provider: 20:46 Initial Comments Patient presents with low back pain, history of chronic back pain. Patient states that she has had a few falls at home while trying to sit on the toilet. Normally ambulates with a cane secondary to chronic low back pain" spinal stenosis". Denies loss of bowel or bladder control, denies radiation of pain to her lower extremities and denies any numbness or tingling of her lower extremities. Allergies and Home Medications Allergies Coded Allergies: Sulfa (Sulfonamide Antibiotics) (Verified Allergy, Intermediate, Rash, 07/19/18) azithromycin (Verified Allergy, Intermediate, Nausea, 07/19/18) nausea and vomiting oxycodone (Verified Allergy, Intermediate, Rash, 07/19/18) prednisone (Verified Allergy, Intermediate, Rash, 07/19/18) Rash, Nausea/Vomiting propoxyphene (Verified Allergy, Intermediate, Rash, 07/19/18) vilazodone (Verified Allergy, Intermediate, Diarrhea, 07/19/18) aspartame (Verified Allergy, Unknown, 07/19/18) Home Medications Hydrocodone/Acetaminophen 1 Each Tablet, 1 TAB PO QHS Prescribed by: STEW HERBERT on 10/03/181346 Hydrocodone/Acetaminophen 1 Each Tablet, 1 TAB PO Q6H Prescribed by: PRASANNA CORDERO on 04/30/192056 Ibuprofen 400 Mg Tablet, 400 MG PO Q6H PRN for PAIN Prescribed by: STEW HERBERT on 10/03/181346 Ibuprofen 800 Mg Tablet, 800 MG PO Q8H PRN for PAIN Prescribed by: PRASANNA CORDERO on 04/30/192056 Patient Home Medication List Home Medication List Reviewed: Yes Review of Systems Review of Systems Constitutional: see HPI; No malaise, No weakness Cardiovascular: No chest pain, No palpitations, No syncope Gastrointestinal: No abdominal pain, No loss of appetite, No nausea, No vomiting Musculoskeletal: see HPI, back pain; No joint pain; muscle pain (low back) Psychiatric/Neurological: See HPI; Denies Numbness, Denies Paresthesia Past Idmyacx-Vrhjxj-Fkqxnj Hx Past Med/Social Hx: Reviewed Nursing Past Med/Soc Hx Patient Social History 2nd Hand Smoke Exposure: No Recent Foreign Travel: No Contact w/Someone Who Travel: No Recent Hopitalizations: No Seasonal Allergies Seasonal Allergies: No Past Medical History Surgeries: Yes Section, Hysterectomy Respiratory: Yes Sleep Apnea Cardiac: Yes Hypertension 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 0oz. [id number]; BMI Method:Estimated General Appearance: WD/WN, no apparent distress Neck: non-tender, supple Cardiovascular: regular rate, rhythm, no edema Respiratory: chest non-tender, lungs clear Gastrointestinal: non tender, soft; No distended, No guarding Back: normal inspection, no CVA tenderness, decreased range of motion (2 to pain), muscle spasm (lumbar paraspinal b/l), vertebral tenderness (L-spine- diffuse, non-localized) Progress/Results/Core Measures Results/Orders My Orders Orders - PRASANNA CORDERO DO Lumbar Spine 2 Or 3 View (04/30/19 20:45) Vital Signs/I&O 04/30/19 04/30/19 20:51 21:08 Temp 36.6 36.6 Pulse 128 108 Resp 20 20 B/P (MAP) 85/73 (77) 136/95 Pulse Ox 93 94 O2 Delivery Room Air Room Air Diagnostic Imaging Diagonstic Imaging: Xray Comments REviewed myself (no RAd interp) no acute findings. Hardware fusion lower lumbar vert. intact. Normal spine alignment. Moderate degen changes. Reviewed: Reviewed by Me Departure Impression Primary Impression: Chronic low back pain Qualified Codes: M54.5 - Low back pain; G89.29 - Other chronic pain Additional Impression: Fall at home Qualified Codes: W19.XXXA - Unspecified fall, initial encounter; Y92.009 - Unspecified place in unspecified non-institutional (private) residence as the place of occurrence of the external cause Disposition: 01 HOME, SELF-CARE Condition: Stable Departure-Patient Inst. Decision time for Depature: 20:54 Referrals: SELFNITISH MD (PCP/Family) Primary Care Physician Patient Instructions: Chronic Pain (DC), Preventing Falls in the Older Adult Scripts Ibuprofen (Ibuprofen) 800 Mg Tablet 800 MG PO Q8H PRN for PAIN, #30 TAB 0 Refills Prov: PRASANNA CORDERO DO 04/30/19 Hydrocodone/Acetaminophen (Hydrocodone/Acetaminophen 5 MG/325 MG TAB) 1 Each Tablet 1 TAB PO Q6H for Pain MDD 10 TABS for 7 Days, #10 TAB Prov: PRASANNA CORDERO DO 04/30/19 PRASANNA CORDERO DO Apr 30, 2019 20:52
[2019-04-30] MEDS ORDERED: IBUP-1780 PO (20:57)
[2019-04-30] MEDS ORDERED: HYDR-4226 PO (20:57)
[2019-04-30 21:08] VITALS: BP 136/95
--- NOTE | 2019-04-30 21:11 | Diagnostic Imaging Report ---
INDICATION: Fell and lower back pain COMPARISON STUDY: Lumbar spine from February the . FINDINGS: Frontal and lateral views of the lumbar spine demonstrate stable postoperative changes with fusion from L3 through L5. No fractures are present. Disc space narrowing L2-L3 with minimal retrolisthesis stable. Disc space narrowing and small posterior osteophytes at L5-S1 are stable. IMPRESSION: Stable lumbar spine. Dictated by: Dictated on workstation # [id number]
--- OUTSIDE RECORDS SUMMARY | 2019-05-02 19:43 | XMS REPORT | Clinical Summary ---
Author Author [facility] Organization [facility] Address Unknown Phone Unavailable Care Team Providers Care Computational Theory Scientist Name Role Phone Self, Hasmukh HARRIS PCP Unavailable Source Comments Some departments are not documenting in the electronic medical record. If you d o not see the information that you expected, contact Release of Information in [facility] [address] Information Management department at [phone] for further assistan ce in locating additional records.[facility] Allergies Comments Active Allergy Reactions Severity Noted Date Propoxyphene VOMITING Low 08/04/2018 N-Acetaminophen Oxycodone-Acetaminophen VOMITING Low 2018 Prednisone FLUSHING Low 08/04/2018 (SKIN) Sulfa (Sulfonamide FLUSHING Low 08/04/2018 Antibiotics) (SKIN) Medications End Date Status Medication Sig Dispensed Refills Start Date Active timolol (TIMOPTIC) 0.25 % Place 1 drop 0 ophthalmic solution into or around eye(s) twice daily. Active indomethacin (INDOCIN) 25 Take 25 mg by 0 mg capsule mouth three times daily. Take with food. Active gabapentin (NEURONTIN) Take 300 mg 0 300 mg capsule by mouth twice daily. Active zolpidem (AMBIEN) 10 mg Take 10 mg by 0 tablet mouth at bedtime as needed for Sleep. Active docusate (COLACE) 100 mg Take 100 mg 0 capsule by mouth twice daily. Active loratadine (CLARITIN) 10 Take 10 mg by 0 mg tablet mouth every morning. Active venlafaxine XR (EFFEXOR Take 150 mg 0 XR) 150 mg capsule by mouth daily. Take with food. Active omeprazole DR(+) Take 20 mg by 0 (PRILOSEC) 20 mg capsule mouth daily before breakfast. Active nystatin (NYSTOP) 100,000 Apply 0 unit/g topical powder topically to affected area four times daily. Active furosemide (LASIX) 20 mg Take 20 mg by 0 tablet mouth twice daily. Active potassium chloride SR Take 20 mEq 0 (K-DUR) 20 mEq tablet by mouth daily. Take with a meal and a full glass of water. Active naloxegol (MOVANTIK) 25 Take by 0 mg tablet mouth once. Active HYDROcodone bitartrate Take by mouth 0 (HYSINGLA ER) 40 mg TP24 Active rosuvastatin (CRESTOR) 20 Take 20 mg by 0 mg tablet mouth daily. Active levothyroxine (SYNTHROID) Take 125 mcg 0 125 mcg tablet by mouth daily 30 minutes before breakfast. Active metFORMIN (GLUCOPHAGE) Take 500 mg 0 500 mg tablet by mouth twice daily with meals. Active ondansetron (ZOFRAN) 4 mg Take 4 mg by 0 tablet mouth every 8 hours as needed for Nausea or Vomiting. Active ferrous sulfate (FEOSOL, Take 325 mg 0 FEROSUL) 325 mg (65 mg by mouth iron) tablet daily. Take on an empty stomach at least 1 hour before or 2 hours after food. Active aspirin 81 mg chewable Chew 81 mg by 0 tablet mouth daily. Take with food. Active MULTIVITAMIN PO Take by 0 mouth. Active MYRBETRIQ 50 mg tablet Take one 90 tablet 1 tablet by 9 mouth daily. Active Problems Problem Noted Date Urinary incontinence 08/04/2018 Overview: Questionaires: ALIS-6: 14 IIQ-7: 20 OAB-V8: 35 AUASS: 25 QoL: 6 PVR 15 cc UA negative L ast Assessment & Plan: 63 y.o. female with history of T2DM, an xiety, urinary frequency presents to establish care. She reports that he r most bothersome symptom is urinary urgency with urge urinary incontinence. We discussed several medication and lifestyle changes that would likely improve her urine control. We have ordered a hemoglobin A1c and discussed diabetes control (specifically reducing regular soda and juice) as wel l as discussed reducing constipation and caffeine intake. She has never bee n on a medication for her urgency and so we will trial me her background as she already struggles with constipat ion to her other medications. She appeared to empty well with a negative UA today and discussed that her comorbidities, including daily Lasix, a re likely compounding in her situation to make her urine control wor se. She is amenable to implementing the above interventions. Hemoglobin A1c Diabetes control Daily MiraLAX Stop soda/coffee Start mirabegron 50 mg daily Follow-up with Bharath in 4 months Family History Medical History Relation Name Comments Heart Disease Father Cancer Maternal Grandfather Heart Disease Maternal Grandfather Cancer Mother Cancer Paternal Grandmother Cancer Sister Relation Name Status Comments Father Maternal Grandfather Mother Paternal Grandmother Sister Social History Date Tobacco Use Types Packs/Day Years Used Never Smoker Smokeless Tobacco: Never Used Drinks/Week oz/Week Comments Alcohol Use Never Alcohol Habits Answer Date Recorded How often do you have a drink containing alcohol? Never 08/04/2018 How many drinks containing alcohol do you have on No t asked a typical day when you are drinking? How often do you have six or more drinks on one Not asked occasion? Sex Assigned at Date Recorded Not on file Industry Job Start Date Occupation Not on file Not on file Not on file Travel End Travel History Travel Start No recent travel history available. Last Filed Vital Signs Reading Time Taken Comments Vital Sign 106/80 08/04/2018 3:06 PM CDT Blood Pressure 100 08/04/2018 3:06 PM CDT Pulse - - Temperature - - Respiratory Rate - - Oxygen Saturation - - Inhaled Oxygen Concentration 117.2 kg (258 lb 6.4 oz) 08/04/2018 3:06 PM CDT Weight 160 cm (5' 3") 08/04/2018 3:06 PM CDT Height 45.77 08/04/2018 3:06 PM CDT Body Mass Index Plan of Treatment Health Maintenance Due Date Last Done Comments HEPATITIS C SCREENING 1955 DTAP/TDAP VACCINES (1 - 01/13/1968 Tdap) HIV SCREENING 01/13/1972 DILATED EYE EXAM 1975 FOOT EXAM 1975 HBA1C 1975 MICROALBUMIN 1975 PHYSICAL (COMPREHENSIVE) 1975 EXAM PNEUMONIA VACCINE (DM) 1975 CERVICAL CANCER SCREENING 1978 BREAST CANCER SCREENING 1997 COLORECTAL CANCER 2007 SCREENING SHINGLES RECOMBINANT 2007 VACCINE (1 of 2) INFLUENZA VACCINE 09/18/2018 Results Not on filefrom Last 3 Months Insurance Type Payer Benefit Subscriber ID Effective Phone Address Plan / Dates Group Medicaid [facility] [place] xxxxxxxxxxx 2009- STATE Present HEALTH [id number] 1 Advance Directives Patient Ride Attendant Explanation Type Date Recorded Advance Directive/DPOA
--- OUTSIDE RECORDS SUMMARY | 2019-05-02 19:44 | XMS REPORT | Clinical Summary ---
Author Author [facility] Organization [facility] Address Unknown Phone Unavailable Care Team Providers Care Bath Attendant Name Role Phone Self, Hasmukh PCP Allergies Comments Active Allergy Reactions Severity Noted Date Aspartame 06/17/2017 Azithromycin 06/17/2017 Oxycodone-Acetaminophen 06/17/2017 Oxycodone 06/17/2017 [id number]-[id number] Prednisone 06/17/2017 Propoxyphene 06/17/2017 Sulfa (Sulfonamide 06/17/2017 Antibiotics) Vilazodone 06/17/2017 Medications End Date Status Medication Sig Dispensed Refills Start Date Active ARIPiprazole (ABILIFY) 20 TAKE 02/19 1 05/20 MG tablet TABLET BY 8 MOUTH DAILY Active ciprofloxacin HCl 4 DROPS LEFT 0 (CILOXAN) 0.3 % EAR BID FOR 7 8 ophthalmic solution DAYS Active DOK 100 mg capsule TK 1 C PO BID 1 8 Active enalapril (VASOTEC) 5 MG TK 1 T PO D 2 04/16 tablet 8 Active HYSINGLA ER 40 mg TP24 TK 1 T PO 0 01 DAILY 8 Active indomethacin (INDOCIN) 25 TK 1 C PO TID 0 05/20 MG capsule . REPLACES 8 MELOXICAM FOR ONE WEEK. Active levothyroxine (SYNTHROID, 5 LEVOTHROID) 112 MCG 8 tablet Active loratadine (CLARITIN) 10 TK 1 T PO D 5 05/29 mg tablet 8 Active LORazepam (ATIVAN) 1 MG 2 tablet 8 Active meclizine (ANTIVERT) 25 3 mg tablet 8 Active meloxicam (MOBIC) 15 MG TK 1 T PO D 1 tablet 8 Active metformin (GLUCOPHAGE) TK 1 T PO D 1 01 500 mg tablet HS 8 Active MOVANTIK 25 mg Tab 0 8 Active NYSTOP powder APPLY TO 0 AFFECTED AREA 8 BID Active nystatin (MYCOSTATIN) ROCHELLE EXT AA 1 03/20/19 1 cream BID 8 Active omeprazole (PRILOSEC) 20 TK 1 C PO D 5 04/03 MG capsule 8 Active simvastatin (ZOCOR) 40 MG TK 1 T PO 0 tablet DAILY LATE 8 Active timolol (TIMOPTIC) 0.5 % INT 1 GTT IN 0 05/14 ophthalmic solution OU BID 8 Active venlafaxine (EFFEXOR-XR) 5 150 mg ER 24 hr capsule 8 Active zolpidem (AMBIEN) 10 mg TK 1 T PO D 2 tablet HS 8 Active Problems Not on file Social History Date Tobacco Use Types Packs/Day Years Used Former Smoker Smokeless Tobacco: Never Used Drinks/Week oz/Week Comments Alcohol Use No Sex Assigned at Date Recorded Not on file Industry Job Start Date Occupation Not on file Not on file Not on file Travel End Travel History Travel Start No recent travel history available. Last Filed Vital Signs Reading Time Taken Comments Vital Sign 118/80 06/18/2017 12:46 AM CDT Blood Pressure 88 06/18/2017 4:45 AM CDT Pulse 36.8 C (98.3 F) 06/17/2017 8:33 PM CDT Temperature 21 06/18/2017 4:45 AM CDT Respiratory Rate 96% 06/18/2017 4:45 AM CDT Oxygen Saturation - - Inhaled Oxygen Concentration 104.3 kg (230 lb) 06/17/2017 8:33 PM CDT Weight 167.6 cm (5' 6") 06/17/2017 8:33 PM CDT Height 37.12 06/17/2017 8:33 PM CDT Body Mass Index Plan of Treatment Health Maintenance Due Date Last Done Comments Hepatitis C Screen 1955 Medicare Annual Wellness 1955 Td # 1955 Colorectal Screening via 2007 Colonoscopy Mammogram Screening 2007 Zoster Vaccine# (1 of 2) 2007 Influenza Vaccine (Season 12/20/2019 Ended) Pneumococcal Vaccine: Aged Out No longer eligib le based on patient's age to Pediatrics (0 to 5 Years) complete this topic and At-Risk Patients (6 to 64 Years) Results Not on filefrom Last 3 Months Insurance Type Payer Benefit Subscriber ID Effective Phone Address Plan / Dates Group Medicare MEDICARE MEDICARE xxxxxxxxxx 1997-P [place] [address] [place] [address] [place], [place] MEDICAID MANAGED CARE DELIGHT xxxxxxxxxxx 8- [place] [facility] Present HEALTH Advance Directives For more information, please contact: [phone] 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
--- OUTSIDE RECORDS SUMMARY | 2019-05-02 19:44 | XMS REPORT | Encounter Summary ---
Author Author [facility] Organization [facility] Address Unknown Phone Unavailable Care Team Providers Care Yard Jockey Name Role Phone Hasmukh Ron PCP Encounter Details Care Team Description Date Type Department 06/18/2017 Imaging [facility] Virtual Revenu e Appointment Location Social History Date Tobacco Use Types Packs/Day Years Used Former Smoker Smokeless Tobacco: Never Used Drinks/Week oz/Week Comments Alcohol Use No Sex Assigned at Date Recorded Not on file Industry Job Start Date Occupation Not on file Not on file Not on file Travel End Travel History Travel Start No recent travel history available. documented as of this encounter Plan of Treatment Not on filedocumented as of this encounter Procedures Comments Procedure Name Priority Date/Time Associated Diag nosis XR CHEST OUTSIDE IMAGES Routine 06/18/[address] for FOR PACS 7:36 AM CDT consultation documented in this encounter Results * XR Outside images for PACS Chest (06/18/2017 7:36 AM CDT) Specimen Performing Organization Address City/State/Zipcode Ph one Number [place] documented in this encounter Visit Diagnoses Not on filedocumented in this encounter
--- OUTSIDE RECORDS SUMMARY | 2019-05-02 19:45 | XMS REPORT | Encounter Summary ---
Author Author [facility] Organization [facility] Address Unknown Phone Unavailable Care Team Providers Care Support Team Member Name Role Phone SelfHasmukh PCP Reason for Visit * Reason Comments Speech Problem pt presented to [facility] with several complaints including lower back and leg pain. pt has baseline of garble d speech but daughter reports trouble "for a long time" but getting w orse and "funny" speech since 1000 this morning Encounter Details Care Team Description Date Type Department Emergency, Physician, Samira Guan, [address] [facility] [address] [place] [address] Slurred speech (Primary Dx); En[facility] for consultation [facility] [address] 06/18/2017 [place] [address] Social History Date Tobacco Use Types Packs/Day Years Used Former Smoker Smokeless Tobacco: Never Used Drinks/Week oz/Week Comments Alcohol Use No Sex Assigned at Date Recorded Not on file Industry Job Start Date Occupation Not on file Not on file Not on file Travel End Travel History Travel Start No recent travel history available. documented as of this encounter Last Filed Vital Signs Reading Time Taken [...] 06/17/2017 8:33 PM CDT Body Mass Index documented in this encounter Discharge Instructions * Attachments The following attachments cannot be sent through Care Everywhere.* Speech, Improving: Dysarthria (Greek) documented in this encounter Medications at Time of Discharge Start Date End Date Medication Sig Dispensed Refills 06/11/2017 ARIPiprazole (ABILIFY) 20 TAKE 1/2 1 MG tablet TABLET BY MOUTH DAILY 05/30/2017 ciprofloxacin HCl 4 DROPS LEFT 0 (CILOXAN) 0.3 % EAR BID FOR 7 ophthalmic solution DAYS 06/12/2017 DOK 100 mg capsule TK 1 C PO BID 1 04/16/2017 enalapril (VASOTEC) 5 MG TK 1 T PO D 2 tablet 06/13/2017 HYSINGLA ER 40 mg TP24 TK 1 T PO 0 DAILY 06/10/2017 indomethacin (INDOCIN) 25 TK 1 C PO TID 0 MG capsule . REPLACES MELOXICAM FOR ONE WEEK. 04/16/2017 levothyroxine (SYNTHROID, 5 LEVOTHROID) 112 MCG tablet 05/29/2017 loratadine (CLARITIN) 10 TK 1 T PO D 5 mg tablet 05/28/2017 LORazepam (ATIVAN) 1 MG 2 tablet 06/12/2017 meclizine (ANTIVERT) 25 3 mg tablet 04/25/2017 meloxicam (MOBIC) 15 MG TK 1 T PO D 1 tablet 04/24/2017 metformin (GLUCOPHAGE) TK 1 T PO D 1 500 mg tablet HS 05/24/2017 MOVANTIK 25 mg Tab 0 03/20/2017 nystatin (MYCOSTATIN) ROCHELLE EXT AA 1 cream BID 06/12/2017 NYSTOP powder APPLY TO 0 AFFECTED AREA BID 04/03/2017 omeprazole (PRILOSEC) 20 TK 1 C PO D 5 MG capsule 05/24/2017 simvastatin (ZOCOR) 40 MG TK 1 T PO 0 tablet DAILY LATE 05/14/2017 timolol (TIMOPTIC) 0.5 % INT 1 GTT IN 0 ophthalmic solution OU BID 05/28/2017 venlafaxine (EFFEXOR-XR) 5 150 mg ER 24 hr capsule 06/11/2017 zolpidem (AMBIEN) 10 mg TK 1 T PO D 2 tablet HS documented as of this encounter Progress Notes * Des Bush MD - 06/18/2017 9:39 AM CDT Neurology Progress Note LED/LED-12 Subjective: She was noted to talk quite a bit better after she received Ativan in preparatio n for her MRI. She continues to have fluctuation in terms of her speech. When I asked her to slow down, she was able to talk a little bit better. She still p urses her lips. There is no actual weakness of the face. No weakness [place] or altered sensation in the arms or legs. She is able to walk. MRI of t he brain was done. The results are pending. However, I reviewed it. The there is no indication of acute stroke. No indication of mass lesion, inflammation. There is slight small vessel disease. Blood pressure [address] an giogram and CT perfusion were negative. She denies any new problems. She state s that she is compliant with her aspirin at home. This is not a failure of her aspirin. Today, she is awake and alert, attentive. Completely oriented to time and place . Fluctuating speech pattern. Not slurred speech. There is a squeaky componen t. She seems to try to talk through pursed lips. No facial asymmetry. No ptos is. Extraocular movements are intact without nystagmus. Visual ferreira are norm al. Motor strength is full. Sensation is normal. Coordination was intact. No pronator drift. Impression Progressive difficulty with speech expression, fluctuating, improved with Ativan . I suspect that this is not going to be a primary neurological event. She is even stuttering at times. There is always changing pattern is not consistent wi th neurologic pathology. MRI does not show any obvious abnormalities. She does have vascular risk however. Hypertension Diabetes Hyperlipidemia Obstructive sleep apnea Prior breast cancer with lumpectomy and radiation therapy with node resection. Hypothyroidism on replacement Depression with anxiety which is probably playing a role here. History of vertigo on medication. Reflux Myofascial disorder, narcotic dependent. Recommendation At this point, do not think any further neurological investigation is required. She can go home on aspirin 81 mg per day. This is not a failure. I discussed with the emergency room physicians. Official report of MRI is pending. I think that there is no obvious causation here. Objective: Blood Pressure: BP: 118/80 Pulse: Pulse: 88 Temperature: Temp: 36.8 C (98.3 F) Respirations: Resp: 21 Admission Weight: Weight: 104.3 kg (230 lb) O2 Saturation: SpO2: 96 % Today's Weight: Weight: 104.3 kg (230 lb) No lab components to display No lab components to display No lab components to display No lab components to display No lab components to display Ct Angio Head And Perfusion P Result Date: 06/18/2017 Impression: 1. No acute intracranial process by noncontrast CT. 2. No arterial occlusion, high grade stenosis, or aneurysmal dilatation. 3. No large vessel perfusion abnormality. The above findings were communicated by telephone to Dr. SAMIRA TRINH at 06/17/2017 8:30 PM. READING SITE: [facility]. ATTESTATION STATEMENT: The Staff Radiologist has personally reviewed the images and dictated, reviewed, or edited the final report. Ct Angio Neck Result Date: 06/18/2017 Impression: No stenosis of the cervical carotid or vertebral arteries. The above findings were communicated by telephone to SAMIRA TRINH at 06/17/2017 8:30 PM. READING SITE: [facility]. ATTESTATION STATEMENT: The Staff Radiologist has personally reviewed the images and dictated, reviewed, or edited the final report. Mri Head W Wo Contrast Result Date: 06/18/2017 1. No acute infarct or hemorrhage. 2. No mass or abnormal enhancement. 3. Mild subcortical and deep periventricular white matter FLAIR hyperintensities, a nonspecific finding, most commonly seen with chronic small vessel ischemic disease. 4. Left cerebellar remote lacunar infarction. READING SITE: [facility]. ATTESTATION STATEMENT: The Staff Radiologist has personally reviewed the images and dictated, reviewed, or edited the final report. No results found. General exam - unchanged Scheduled Meds: ARIPiprazole 10 mg Oral Daily aspirin 81 mg Oral Daily enalapril 5 mg Oral Once gabapentin 300 mg Oral TID levothyroxine 112 mcg Oral Daily loratadine 10 mg Oral Daily metFORMIN 500 mg Oral Daily with breakfast venlafaxine 150 mg Oral Daily with breakfast Continuous Infusions: PRN Meds:. Assessment There are no active hospital problems to display for this patient. documented in this encounter Procedure Notes * Prachi Jung RN - 06/17/2017 8:51 PM CDT Pt speech evaluation is intermittent. She is pursing her lips intermittently to speak. I asked if she normally wore dentures and she stated she has never worn dentures, the remaining teeth she had were removed over a year ago. There is no defined time of when these symptoms started, per daughter it has been weeks, but she thought it got worse this morning. * Prachi Jung RN - 06/17/2017 8:44 PM CDT Pt arrived at 2000, Code yellow stroke paged at 2032, I arrived in room at 2035. documented in this encounter Consult Notes * Des Bush MD - 06/17/2017 9:27 PM CDT NEUROLOGY CONSULT Name: Shannon Park Gender: female Date of : 1955 Age: 62 y.o. Date/Time of Admit: 06/17/2017 8:12 PM Code Status: No Order Primary Care Provider / Referring Physician: Hasmukh Ron MD Informant: Current History Chief Complaint: Progressive speech change HPI: This patient is a 62 y.o. left-handed woman who is very difficult to understand due to her altered speech production. However, I also reviewed notes from the [facility] [place] facility which is in [facility]. She has a history of hypertension, diabetes with peripheral neuropathy gastropar esis, reflux disease, hyperlipidemia, obstructive sleep apnea, 3 back surgeries with lumbar fracture, hysterectomy, hypothyroidism on replacement. She has a hi story of some type of kidney disorder although I cannot tell what she is trying to tell me. There is nothing in the chart. She has had ductal cancer in situ, left side, lumpectomy with node resection, radiation therapy in 2010, depression with anxiety, vertigo, arthritis, glaucoma, headaches, hemorrhoidectomy, append ectomy, myofascial disorder with pain. She is narcotic dependent. She does janice e gabapentin. She reports that she has had slurred speech over the past 3 months which is grad ually gotten worse. Today it became a bit more worse and she went to the hospit al. Head CT was unrevealing. Here CT angiogram and CT perfusion were negative. Her urine drug screen was negative. Urinalysis was negative. She is not in k idney failure. White blood cell count is 10.2. Hemoglobin is 11.4. She denies any focal weakness or paresthesias. She has some decreased ability to walk bas ed on pain coming from her back. INR is 1.0. Glucose 135. Blood pressure 162/ 86. Medications are Abilify, aspirin 81 mg per day, Voltaren gel, Colace, Estrace, g abapentin, hydrocodone extended release, Indocin, levothyroxine, Imodium, Clarit in, Ativan, Antivert, Mobic, metformin, Movantik, Prilosec, Zofran. Phenergan, Zocor, Effexor, Ambien. Allergies are to Zithromax, Percocet, Percodan, propoxyphene, sulfa, Viibryd. Past medical history as discussed. She denies any prior stroke, coronary diseas e, arrhythmia such as atrial fibrillation. She has had carpal tunnel release as well as section. Family history remarkable for stroke, coronary disease, hypertension, cancer, mi graine headache, diabetes. No tobacco or alcohol. She is disabled. On examination, she is awake and alert. She is oriented completely time, place, situation. She remember 3 of 3 words after 3 minutes. She did have an abnormal speech pattern. Somewhat stuttering. Intermittently she was understandable. Other times she was quite difficult to understand. When she wanted to put her point across, she was a little bit more understandable. No aphasia. No parapha sic errors. Pupils midline equal and reactive to light and accommodation. Extr aocular movements are intact without nystagmus. No facial asymmetry. Facial se nsation was normal and symmetric. Visual ferreira are intact. Hearing was intact . Motor strength appear grossly 5/5. There was some guarded decreased range of motion particularly the right leg. Minimal dystaxia on right side finger-nose. Left eye was normal. Sensation was normal symmetric. Reflexes were 2/2 in the upper extremities 1/1, lower extremities with downgoing toes bilaterally. Gait was not tested. Rapid alternating success movements appeared normal. Impression -progressive difficulty with speech expression with some dysarthric features as well as stuttering. Subtle right upper extremity dystaxia rings up the possibil ity of a hemispheric process. The gradual onset and progression suggest that th is would be more likely to be some type of mass lesion or inflammatory process r ather than stroke. Apparently there was some relatively abrupt worsening today. She does have risk factors for vascular disease including hypertension, diabet es, hyperlipidemia, obstructive sleep apnea, hypercoagulable factors with the ca ncer. However, the course is not really that of a stroke. Hypertension Diabetes Hyperlipidemia Obstructive sleep apnea Prior breast cancer with lumpectomy and radiation therapy and node resection. History 3 back surgeries Hypothyroidism on replacement Depression with anxiety History of vertigo Reflux disease. Myofascial disorder. Recommendation At this point, we will obtain an MRI of the brain looking specifically for hemis pheric or subcortical lesion which would account for the gradual worsening over time and subtle right upper semi-dystaxia. If negative, consideration for some type of psychological overlay at this point. Her speech pattern is really diffi cult to discern actually. Continue to control vascular risk. This is not a dominga lure of her aspirin 81 mg daily which I would continue. Continue to treat her r isk factors as well as psychiatric disease. Discussed with the emergency room [facility]. ADDENDUM: Reviewed MRI of the brain. No evidence of acute ischemia. There is an old line ar area of ischemia seen in the left cerebellum which is quite small and not rel ated to her symptoms. Would continue aspirin 81 mg daily as well as risk factor control. Given the degree of her changes in speech as well as apparent resolution with At jo which was given prior to MRI, I suspect that this might be some embellishme nt particularly related to her psychiatric disease. Do not think any further in vestigation is warranted. ROS 10 POINT ROS PERFORMED AND IS NEGATIVE EXCEPT PER HPI Scheduled Meds: Continuous Infusions: Past History Past Medical History: Diagnosis Date Anxiety Arthritis Carpal tunnel syndrome Chronic headache DCIS (ductal carcinoma in situ) DDD (degenerative disc disease) Depression Diabetes (HCC) Disease of thyroid gland Fatty liver GERD (gastroesophageal reflux disease) Glaucoma Hyperglycemia Hyperglycemia Hyperlipidemia Hypertension Insomnia Lumbar herniated disc Major depressive disorder Memory loss due to medical condition Migraine Myalgia Myositis Neuropathy Obstructive sleep apnea Osteoarthritis Osteoporosis Spinal stenosis Synovial cyst Past Surgical History: Procedure Laterality Date APPENDECTOMY BACK SURGERY CARPAL TUNNEL RELEASE SECTION HEMORRHOIDECTOMY HYSTERECTOMY LYMPH NODE DISSECTION MASTECTOMY, PARTIAL TUBAL LIGATION No family history on file. Social History Social History Narrative No narrative on file Social History Social History Main Topics Smoking status: Former Smoker Smokeless tobacco: Never Used Alcohol use No Drug use: No Sexual activity: Not on file Medications and Allergies ALLERGIES/SENSITIVITIES: Allergies Allergen Reactions Aspartame Azithromycin Percocet [Oxycodone-Acetaminophen] Percodan [Oxycodone Khz-Thiyurfqh-Tax] Prednisone Propoxyphene Sulfa (Sulfonamide Antibiotics) Viibryd [Vilazodone] Physical Vitals Blood Pressure: BP: (!) 143/78 Pulse: Pulse: 92 Temperature: Temp: 36.8 C (98.3 F) Respirations: Resp: 20 Admission Weight: Weight: 104.3 kg (230 lb) O2 Saturation: SpO2: 93 % Today's Weight: Weight: 104.3 kg (230 lb) Diagnostics Lab No lab components to display No lab components to display No lab components to display No lab components to display No lab components to display Imaging: No results found. There are no active hospital problems to display for this patient. documented in this encounter ED Notes * Alexandra Knight RN - 06/18/2017 11:21 AM CDT Spoke with patient's - Ajit, per cell phone- patient is on the way home . * Alexandra Knight RN - 06/18/2017 10:45 AM CDT [employer] here. Patient assisted with getting clothes on. * Alexandra Knight RN - 06/18/2017 8:45 AM CDT Arrangements made for [employer] to pick patient up with a 3-4 hours window for a rrival. Patient concerned about taking her morning medications. Medication list reviewed with patient. Spoke with DR. Padron regarding patients concern for m edications and keeping on schedule and the plan of care with patient. * Alexandra Knight RN - 06/18/2017 8:27 AM CDT called and doesn't want to pick patient up, he said "call [employer]." * Alexandra Knight RN - 06/18/2017 8:15 AM CDT Up to br with assistance. * Alexandra Knight RN - 06/18/2017 7:10 AM CDT Per night nurse ' on the way." Patient sleeping. * Keyonna Weiner RN - 06/18/2017 12:05 AM CDT Social work reports that they will go discuss with the pt on how she will get ho me today. * Keyonna Weiner RN - 06/17/2017 11:30 PM CDT Assisted the pt to the bedside commode to urinate. Pt now back into bed, hooked up to monitors, side rails up x2, call light within reach. VSS. Will continue to monitor. * Keyonna Weiner RN - 06/17/2017 10:57 PM CDT Report from JALEESA Cleary. Pt is still in MRI at this time. * Yari Valencia RN - 06/17/2017 10:13 PM CDT Pt was requesting food stating, "I haven't had anything to eat since I arrived a t the hospital" in nearly clear speech. Pt continued to speak with MRI technolog ist without deficits until RN came back over to bed and pt began speaking with p erced lips * Samira Trinh DO - 06/17/2017 9:40 PM CDT 06/17/2017 [facility] History Chief Complaint Patient presents with Speech Problem pt presented to [facility] with several complaints including lower back an d leg pain. pt has baseline of garbled speech but daughter reports trouble "for a long time" but getting worse and "funny" speech since 1000 this morning This is a 62-year-old female who was evaluated at [facility] in [facility] and was transferred to our facility to rule out strokelike symptoms. Per the patient and per patient's medical record patient has been having interm ittent problems with garbled speech since February that had worsened today. Per medical records from [facility] patient was last known well possibly on stating that her symptoms per the daughter has slightly worsened since then . Her who had called in patient has been having intermittent episodes s sushma they 6 months ago. He notes that her symptoms improve when he is around and worsen when they are "having issues". Patient has CT head at [facility] that was negative. Past Medical History: Diagnosis Date Anxiety Arthritis Carpal tunnel syndrome Chronic headache DCIS (ductal carcinoma in situ) DDD (degenerative disc disease) Depression Diabetes (HCC) Disease of thyroid gland Fatty liver GERD (gastroesophageal reflux disease) Glaucoma Hyperglycemia Hyperglycemia Hyperlipidemia Hypertension Insomnia Lumbar herniated disc Major depressive disorder Memory loss due to medical condition Migraine Myalgia Myositis Neuropathy Obstructive sleep apnea Osteoarthritis Osteoporosis Spinal stenosis Synovial cyst Past Surgical History: Procedure Laterality Date APPENDECTOMY BACK SURGERY CARPAL TUNNEL RELEASE SECTION HEMORRHOIDECTOMY HYSTERECTOMY LYMPH NODE DISSECTION MASTECTOMY, PARTIAL TUBAL LIGATION No family history on file. Social History Substance Use Topics Smoking status: Former Smoker Smokeless tobacco: Never Used Alcohol use No Review of Systems Constitutional: Negative for chills, fatigue and fever. HENT: Negative for ear pain, postnasal drip, sinus pressure and sore throat. Respiratory: Negative for cough, chest tightness and shortness of breath. Cardiovascular: Negative for chest pain. Gastrointestinal: Negative for abdominal pain, diarrhea, nausea and vomiting. Genitourinary: Negative for difficulty urinating, dysuria, flank pain and freque ncy. Neurological: Negative for dizziness, seizures, weakness and headaches. See HPI Physical Exam BP (!) 143/78 | Pulse 92 | Temp 36.8 C (98.3 F) (Oral) | Resp 20 | Ht 1. 676 m (5' 6") | Wt 104.3 kg (230 lb) | SpO2 93% | BMI 37.12 kg/m Weight Method: Stated Physical Exam Constitutional: She is oriented to person, place, and time. She appears well-dev eloped and well-nourished. HENT: Head: Normocephalic and atraumatic. Eyes: EOM are normal. Pupils are equal, round, and reactive to light. Neck: Normal range of motion. Neck supple. Cardiovascular: Normal rate, regular rhythm and normal heart sounds. Pulmonary/Chest: Effort normal and breath sounds normal. Abdominal: Soft. Bowel sounds are normal. Musculoskeletal: Normal range of motion. Neurological: She is alert and oriented to person, place, and time. Patient with intermittent episodes of thick speech but not slurred speech patien t when speaking keeps pursing her lips together and at times speaking with an ac cent but there is no obvious dysarthria or expressive aphasia Skin: Skin is warm and dry. Nursing note and vitals reviewed. ED Course Procedures MDM Number of Diagnoses or Management Options Diagnosis management comments: On review of patient's past medical records and h er evaluation from [facility] today WBC is than her meds at 10.2 hemoglobin stable 11 .4 electrolytes showed a sodium of 136 potassium of 4.8 and creatinine 0.79. Li jean pierre enzymes are within normal limits. Urine showed no acute process acetaminoph en and salicylate were negative urine drug screen was negative CT head showed no acute findings. They had documented an NIH of 5 however this was based on some partial gaze palsy which is not present during my evaluation the patient emerge ncy room here today. CT Angio perfusion was negative for any acute process I did discuss with Dr. Ly in who did not feel that this was an acute neurological event either given the e xtensive timeframe of her symptoms. He recommended the patient getting an MRI w ith and without contrast to rule out the possibility of mass. He did recommend that if patient's MRI was negative for any acute process patient to be discharge d home with follow-up Patient requested Ativan prior to MRI as she states that she is claustrophobic. Nurse states that after patient was given Ativan her slurred speech completely resolved and patient was speaking clearly without difficulty.. MRI was negative for any acute process. I did discuss these results with the pa landen and plan for discharge with follow-up with either her primary care physici an or neurology. Amount and/or Complexity of Data Reviewed Independent visualization of images, tracings, or specimens: yes ED Course as of Jun 18 2339 Mon Jun 17, [id number] CT angio perfusion neg discussed with Dr. Pete [SD] 2306 Awaiting MR results [SD] ED Course User Index [SD] Samira Trinh DO No results found for this or any previous visit (from the past 24 hour(s)). MRI Head w wo contrast ED Interpretation 1. No acute infarct or hemorrhage. 2. No mass or abnormal enhancement. 3. Mild subcortical and deep periventricular white matter FLAIR hyperintensities , a nonspecific finding, most commonly seen with chronic small vessel ischemic d isease. 4. Left cerebellar remote lacunar infarction. CT Outside images for PACS Final Result CT Angio Head and Perfusion P (Results Pending) CT Angio Neck (Results Pending) ED Clinical Impression 1. Slurred speech Patient ED Dispo ED Disposition Discharge Samira Trinh DO 06/17/172339 * Yari Valencia RN - 06/17/2017 9:36 PM CDT Pt's called and told RN that these "funny speech" patterns began when th e pt and her 6 months ago. Pt's reports that the pt's "funny speech" improves when she is around the and since the pt has rece ntly moved back in the speech pattern stopped and was back to normal until recen tly when pt's son started having increased learning disability issues. These fac ts reported to physician * Micah Ghosh RN - 06/17/2017 8:12 PM CDT Bed: [facility] Expected date: Expected time: Means of arrival: Comments: STROKE transfer documented in this encounter Miscellaneous Notes * Care Progression Final DC Note - Ashli Yeung LMSW - 06/18/2017 8:44 AM CDT Final Discharge Note Discharge goal and plan is mutually agreed upon by patient. Patient will discharge to: home Transportation: [facility] Discharge Time: 8:42-11:42am Special Instructions: trip confirmation number [id number] Ashliari Yeung, 06/18/2017 8:45 AM documented in this encounter Plan of Treatment Not on filedocumented as of this encounter Procedures Comments Procedure Name Priority Date/Time Associated Diag nosis XR CHEST OUTSIDE IMAGES Routine 06/18/[address] for FOR PACS 7:36 AM CDT consultation MRI HEAD W WO CONTRAST STAT 06/17/2017 10:[address] OUTSIDE IMAGES FOR Routine 06/17/2017 PACS 8:[address] ANGIO NECK STAT 06/17/2017 8:[address] ANGIO HEAD AND STAT 06/17/2017 PERFUSION P 8:27 PM CDT documented in this encounter Results * XR Outside images for PACS Chest (06/18/2017 7:36 AM CDT) Specimen Performing Organization Address City/State/Zipcode Ph one Number [place] * MRI Head w wo contrast (06/17/2017 10:44 PM CDT) Specimen Impressions Performed At 1. No acute infarct or hemorrhage. [facility] 2. No mass or abnormal enhancement. 3. Mild subcortical and deep periventri cular white matter FLAIR hyperintensities, a nonspecific finding , most commonly seen with chronic small vessel ischemic disease. 4. Left cerebellar remote lacunar infar ction. READING SITE: [facility]. ATTESTATION STATEMENT: The Staff Radiologist has personally re viewed the images and dictated, reviewed, or edited the final report. Narrative Performed At Patient: SHANNON PARK Sex#: F # 1955 Selina#: [id number] Location: [facility] LED-12 Procedure Requested: [id number] MRI HEAD W WO CONTRAST Reason for Exam: slurred speech Exam Ordered: 06/17/2017 20 52 Exam Date/Time: 06/17/2017 224 4 Begin exam date/time: 06/17/2017 220 0 MRI HEAD W WO CONTRAST Date: 06/17/2017 10:44 PM Indication: Right sided weakness, speec h difficulty. Initial encounter Comparison: None. Technique: Multiplanar multisequence MR I of the brain was performed with and without intravenous contrast using the standard protocol. 20 cc Multihance contrast was administered in travenously during the exam. Findings: Left cerebellar remote lacunar infarcti on. No acute infarct. No acute or chronic h emorrhage. The ventricles are normal in size and configuration withou t hydrocephalus. Mild scattered FLAIR hyperintensities in the subcortic al and periventricular deep white matter, a nonspecific finding, most com monly seen with chronic small vessel ischemic disease. No abnormal enhancement. The scalp and calvarium are normal. The pituitary and sella are normal. No Chiari malformation. The visualized upper cervical spine is normal. The visualized orbits and globes are no rmal. The visualized paranasal sinuses are clear. The mastoid air cell s are clear. Normal flow voids within the vertebral, basilar, and internal carotid arteries indicating patency. Procedure Note Interface, Rad Results In - 06/18/2017 9:38 AM CDT Patient: SHANNON PARK Sex#: Paulina # 1955 Selina#: [id number] Location: [place] [address] Procedure Requested: [id number] MRI HEAD W WO CONTRAST Reason for Exam: slurred speech Exam Ordered: 06/17/20172051 Exam Date/Time: 06/17/20172243 Begin exam date/time: 06/17/2017 2200 MRI HEAD W WO CONTRAST Date: 06/17/2017 10:44 PM Indication: Right sided weakness, speech difficulty. Initial encounter Comparison: None. Technique: Multiplanar multisequence MRI of the brain was performed with and without intravenous contrast using the standard protocol. 20 cc Multihance contrast was administered intravenously during the exam. Findings: Left cerebellar remote lacunar infarction. No acute infarct. No acute or chronic hemorrhage. The ventricles are normal in size and configuration without hydrocephalus. Mild scattered FLAIR hyperintensities in the subcortical and periventricular deep white matter, a nonspecific finding, most commonly seen with chronic small vessel ischemic disease. No abnormal enhancement. The scalp and calvarium are normal. The pituitary and sella are normal. No Chiari malformation. The visualized upper cervical spine is normal. The visualized orbits and globes are normal. The visualized paranasal sinuses are clear. The mastoid air cells are clear. Normal flow voids within the vertebral, basilar, and internal carotid arteries indicating patency. IMPRESSION 1. No acute infarct or hemorrhage. 2. No mass or abnormal enhancement. 3. Mild subcortical and deep periventric ular white matter FLAIR hyperintensities, a nonspecific finding, most commonly seen with chronic small vessel ischemic disease. 4. Left cerebellar remote lacunar infarc tion. READING SITE: [facility]. ATTESTATION STATEMENT: The Staff Radiologist has personally reviewed the images and dictated, reviewed, or edited the final report. Performing Organization Address [facility] Ph one Number [facility] * CT Outside images for PACS (06/17/2017 8:52 PM CDT) Specimen Performing Organization Address [facility] Ph one Ernie BONNER * CT Angio Neck (06/17/2017 8:27 PM CDT) Specimen Impressions Performed At Impression: [facility] No stenosis of the cervical carotid or vertebral arteries. The above findings were communicated by telephone to SAMIRA TRINH at 06/17/2017 8:30 PM. READING SITE: [facility]. ATTESTATION STATEMENT: The Staff Radiologist has personally re viewed the images and dictated, reviewed, or edited the final report. Narrative Performed At Patient: SHANNON PARK Sex#: F # 1955 Selina#: [id number] Location: [facility] LED-12 Procedure Requested: [id number] CT ANGIO NECK Reason for Exam: Stroke symptoms/weak ness Exam Ordered: 06/17/2017 19 59 Exam Date/Time: 06/17/2017 202 7 Begin exam date/time: 06/17/[address] Angiogram of the Neck (with contrast ) Date: 06/17/2017 8:28 PM Indication: Right sided weakness, speec h difficulty. Initial encounter Comparison: Concurrent cerebral CT an giogram and perfusion imaging. Technique: CT angiogram of neck was obtained with bolus injection of 75 mL of Omnipaque 350. The images were sent t o workstation and multiplanar reconstructions were obtained. These images were sent to a separate work station and 3-D volume rendering w as performed. One or more of the following dose reduction techniques wer e utilized: Automated exposure control (AEC), Adjustment of mA and/or kV according to patient size, Use of iterative reconstruction technique s uch as ASiR, CT scan done according to ALARA and image gently/justin ge wisely Findings: Right carotid: The right common carotid artery is patent and normal caliber. The carotid bifurcation is nor mal. No stenosis of the right internal carotid artery per NASCET crit eria. The right external carotid artery is patent. Left carotid: The left common carotid a rtery is patent and normal caliber. The carotid bifurcation is nor mal. No stenosis of the left internal carotid artery per NASCET crit eria. The left external carotid artery is patent. Right vertebral: The right vertebral ar morgan is patent and normal caliber. Left vertebral: The left vertebral marii ry is patent and normal caliber. The visualized portions of the aortic a rch are normal. The origins of the brachiocephalic and subclavian marii charlee are normal. No cervical lymphadenopathy. The thyroi d gland is normal. The parotid and submandibular glands are normal. Th e visualized aerodigestive tract is unremarkable. Poor dentition. The cervical spine is normal. The visualized portions of the lungs ar e clear. Procedure Note Interface, Rad Results In - 06/18/2017 9:38 AM CDT Patient: SHANNON PARK Sex#: Paulina # 1955 Selina#: [id number] Location: [place] [address] Procedure Requested: [id number] CT ANGIO NECK Reason for Exam: Stroke symptoms/weakness Exam Ordered: 06/17/20171958 Exam Date/Time: 06/17/20172026 Begin exam date/time: 06/17/20172019 CT Angiogram of the Neck (with contrast) Date: 06/17/2017 8:28 PM Indication: Right sided weakness, speech difficulty. Initial encounter Comparison: Concurrent cerebral CT angiogram and perfusion imaging. Technique: CT angiogram of neck was obtained with bolus injection of 75 mL of Omnipaque 350. The images were sent to workstation and multiplanar reconstructions were obtained. These images were sent to a separate work station and 3-D volume rendering was performed. One or more of the following dose reduction techniques were utilized: Automated exposure control (AEC), Adjustment of mA and/or kV according to patient size, Use of iterative reconstruction technique such as ASiR, CT scan done according to ALARA and image gently/image wisely Findings: Right carotid: The right common carotid artery is patent and normal caliber. The carotid bifurcation is normal. No stenosis of the right internal carotid artery per NASCET criteria. The right external carotid artery is patent. Left carotid: The left common carotid artery is patent and normal caliber. The carotid bifurcation is normal. No stenosis of the left internal carotid artery per NASCET criteria. The left external carotid artery is patent. Right vertebral: The right vertebral artery is patent and normal caliber. Left vertebral: The left vertebral artery is patent and normal caliber. The visualized portions of the aortic arch are normal. The origins of the brachiocephalic and subclavian arteries are normal. No cervical lymphadenopathy. The thyroid gland is normal. The parotid and submandibular glands are normal. The visualized aerodigestive tract is unremarkable. Poor dentition. The cervical spine is normal. The visualized portions of the lungs are clear. IMPRESSION Impression: No stenosis of the cervical carotid or vertebral arteries. The above findings were communicated by telephone to SAMIRA TRINH at 06/17/2017 8:30 PM. READING SITE: [facility]. ATTESTATION STATEMENT: The Staff Radiologist has personally reviewed the images and dictated, reviewed, or edited the final report. Performing Organization Address City/State/[facility] Ph one Ernie BONNER * CT Angio Head and Perfusion P (06/17/2017 8:27 PM CDT) Specimen Impressions Performed At Impression: [facility] 1. No acute intracranial process by non contrast CT. 2. No arterial occlusion, high grade st enosis, or aneurysmal dilatation. 3. No large vessel perfusion abnormalit y. The above findings were communicated by telephone to Dr. SAMIRA TRINH at 06/17/2017 8:30 PM. READING SITE: [facility]. ATTESTATION STATEMENT: The Staff Radiologist has personally re viewed the images and dictated, reviewed, or edited the final report. Narrative Performed At Patient: SHANNON PARK Sex#: F # 1955 Selina#: [id number] Location: [place] [address] Procedure Requested: [id number] CT ANGIO HEAD AND PERFUSION P Reason for Exam: Stroke symptoms/weak ness Exam Ordered: 06/17/2017 19 59 Exam Date/Time: 06/17/2017 202 7 Begin exam date/time: 06/17/[address] Head (without contrast), CT Angiogra m & CT Perfusion Head (with contrast) Date: 06/17/2017 8:23 PM Indication: Right sided weakness, speec h difficulty. Initial encounter Comparison : Concurrent CTA neck. Technique: Multiple axial tomographic i mages of the head were obtained without contrast. Axial slices for perf usion were selected and CT perfusion head was performed with bolus injection of 40 cc of Omnipaque 350. The images were sent to workstat ion and mean transit time (MTT), cerebral blood flow (CBF), and cerebral blood volume (CBV) were calculated. CT angiogram was obtained a fter IV administration of 75 ml of Omnipaque-350. These images were sen t to work station and 3-D volume rendering was performed. One or more of the following dose reduction techniques were utilized: Automated exp osure control (AEC), Adjustment of mA and/or kV according to patient si ze, Use of iterative reconstruction technique such as ASiR, CT scan done according to ALARA and image gently/image wisely Noncontrast CT Head Findings: The moya-white matter junction is vu l. No acute hemorrhage. No intra or extra-axial mass or fluid collection . The ventricles are normal in size and configuration without hydrocep halus. The subarachnoid cisterns are patent. No soft tissue abnormality seen. Visibl e sinuses and orbits are normal. The mastoid air cells are clear. CT Angiogram Findings: Normal filling of both distal ICA's, as well as the proximal bilateral anterior and middle cerebral branches. The vertebral, basilar and posterior cerebral arteries are normal. No arterial occlusion. No aneurysm. No arteriovenous malformation . CT Perfusion Findings: Normal and symmetrical mean transit risa e (MTT), time to peak (TTP), cerebral blood flow (CBF) and cerebral blood volume (CBV). Procedure Note Interface, Rad Results In - 06/18/2017 9:38 AM CDT Patient: SHANNON PARK Sex#: Paulina # 1955 Selina#: [id number] Location: [place] [address] Procedure Requested: [id number] CT ANGIO HEAD AND PERFUSION P Reason for Exam: Stroke symptoms/weakness Exam Ordered: 06/17/20171958 Exam Date/Time: 06/17/20172026 Begin exam date/time: 06/17/20172019 CT Head (without contrast), CT Angiogram & CT Perfusion Head (with contrast) Date: 06/17/2017 8:23 PM Indication: Right sided weakness, speech difficulty. Initial encounter Comparison : Concurrent CTA neck. Technique: Multiple axial tomographic images of the head were obtained without contrast. Axial slices for perfusion were selected and CT perfusion head was performed with bolus injection of 40 cc of Omnipaque 350. The images were sent to workstatio n and mean transit time (MTT), cerebral blood flow (CBF), and cerebral blood volume (CBV) were calculated. CT angiogram was obtained after IV administration of 75 ml of Omnipaque-350. These images were sent to work station and 3-D volume rendering was performed. One or more of the following dose reduction techniques were utilized: Automated exposure control (AEC), Adjustment of mA and/or kV according to patient size, Use of iterative reconstruction technique such as ASiR, CT scan done according to ALARA and image gently/image wisely Noncontrast CT Head Findings: The moya-white matter junction is normal. No acute hemorrhage. No intra or extra-axial mass or fluid collection. The ventricles are normal in size and configuration without hydrocephalus. The subarachnoid cisterns are patent. No soft tissue abnormality seen. Visible sinuses and orbits are normal. The mastoid air cells are clear. CT Angiogram Findings: Normal filling of both distal ICA's, as well as the proximal bilateral anterior and middle cerebral branches. The vertebral, basilar and posterior cerebral arteries are normal. No arterial occlusion. No aneurysm. No arteriovenous malformation. CT Perfusion Findings: Normal and symmetrical mean transit time (MTT), time to peak (TTP), cerebral blood flow (CBF) and cerebral blood volume (CBV). IMPRESSION Impression: 1. No acute intracranial process by nonc ontrast CT. 2. No arterial occlusion, high grade anuel nosis, or aneurysmal dilatation. 3. No large vessel perfusion abnormality . The above findings were communicated by telephone to Dr. SAMIRA TRINH at 06/17/2017 8:30 PM. READING SITE: [facility]. ATTESTATION STATEMENT: The Staff Radiologist has personally reviewed the images and dictated, reviewed, or edited the final report. Performing Organization Address City/State/[facility] ailyn BONNER documented in this encounter Visit Diagnoses Diagnosis Slurred speech Other speech disturbance Encounter for consultation documented in this encounter Administered Medications Action Date Dose Rate Site Medication Order MAR Action ARIPiprazole (ABILIFY) tablet 10 mg 10 mg, Oral, Daily, First dose on Sat06/18/17 at 0910 06/18/2017 9:10 AM CDT 81 mg aspirin chewable tablet 81 mg Given 81 mg, Oral, Once, Sat06/18/17 at 0910, For 1 dose 06/18/2017 9:10 AM CDT 300 mg gabapentin (NEURONTIN) capsule 300 mg Given 300 mg, Oral, 3 times daily, First dose on Sat06/18/17 at 0910 06/17/2017 10:30 PM CDT 20 mL gadobenate dimeglumine (MULTIHANCE) 529 Given mg/mL (0.1mmol/0.2mL) injection 1-20 mL 1-20 mL, Intravenous, Once in imaging, contrast, Starting Sat06/17/17 at 2229, For 1 dose 06/18/2017 9:10 AM CDT 2 tablets HYDROcodone-acetaminophen (NORCO) 5-325 Given mg per tablet 2 tablet 2 tablet, Oral, Once, Sat06/18/17 at 0910, For 1 dose, Do not exceed 4 GM/DA Y of acetaminophen. If 65 or older do no t exceed 3 GM/DAY. If chronic alcoholic d o not exceed 2 GM/DAY., 06/17/2017 8:27 PM CDT 115 mL iohexol (OMNIPAQUE) 350 mg iodine/mL Given injection 115 mL 115 mL, Intravenous, Once in imaging, contrast, Starting 06/17/17 at 2027, For 1 dose levothyroxine (SYNTHROID, LEVOTHROID) tablet 112 mcg 112 mcg, Oral, Daily, First dose on Sat06/18/17 at 0910, Take on empty stomach , loratadine (CLARITIN) tablet 10 mg 10 mg, Oral, Daily, First dose on Sat06/18/17 at 0910 06/17/2017 10:07 PM CDT 1 mg LORazepam (ATIVAN) injection 1 mg Given 1 mg, Intravenous, Once, 06/17/17 at 2207, For 1 dose, Maximum IV push rate of 2 mg/min; max IVP dose is 4 mg., 06/18/2017 9:10 AM CDT 1 mg LORazepam (ATIVAN) tablet 1 mg Given 1 mg, Oral, Once, Indications: anxiety, Sat06/18/17 at 0910, For 1 dose metFORMIN (GLUCOPHAGE) tablet 500 mg 500 mg, Oral, Daily with breakfast, First dose on Sat06/18/17 at 0910, Give mid-meal or after meal, venlafaxine (EFFEXOR-XR) 24 hr capsule 150 mg 150 mg, Oral, Daily with breakfast, First dose on Sat06/18/17 at 0910, DO NO T CRUSH OR CHEW., documented in this encounter
--- OUTSIDE RECORDS SUMMARY | 2019-05-02 19:45 | XMS REPORT ---
Author Author Filipe, Shannon Doctor Organization [facility] Address Unknown Phone Unavailable Care Team Providers Care Science Manager Name Role Phone Migration, Doctor Unavailable Unavailable PROBLEMS Type Condition ICD9-CM Code [id number] Code Onset Dates Condition S tatus SNOMED Code Problem Panic disorder F41.0 Active 28126 1005 Problem Borderline personality disorder F60.3 Active 58742167 Problem Major depressive disorder, recurrent episode, moderate F33.1 Active 721507270 Problem IZABEL on CPAP G47.33 Active 63317979 Problem Open wound of right foot, initial encounter S91.30 1A Active [id number] Problem Spinal stenosis M48.00 Active 7610 7001 Problem Breast cancer C50.919 Active 856585 009 Problem Insomnia G47.00 Active 047058048 Problem Morbid (severe) obesity due to excess calories E66 .01 Active 895204852 Problem Hypothyroidism E03.9 Active 79852 008 Problem GERD (gastroesophageal reflux disease) K21.9 Active 276338066 Problem Osteoarthritis M19.90 Active 95660 5006 Problem Anxiety F41.9 Active 48793534 Problem Essential hypertension I10 Active 49390032 Problem Arthritis M19.90 Active 0058027 Problem Migraine G43.909 Active 19405021 Problem Diabetic polyneuropathy associated with type 2 d iabetes mellitus E11.42 Active 39481272 Problem Migraine with aura and without status migrainosu s, not intractable G43.109 Active 3901442 Problem DDD (degenerative disc disease), lumbar M51.36 Active 29192998 Problem Major depression F32.9 Active 370 789239 Problem BMI 45.0-49.9, adult Z68.42 Active 612586065 Problem Type 2 diabetes mellitus E11.9 Activ e 18992736 Problem Other chronic pain G89.29 Active 8 2430295 Problem Functional urinary incontinence R39.81 Active 164446680 Problem Mixed incontinence urge and stress N39.46 Active 462955071 Problem Body mass index (BMI) of 40.0-44.9 in adult Z68.41 Active 938827161 Problem Vitamin D deficiency E55.9 Active 63915595 ALLERGIES No Information ENCOUNTERS Encounter Location Date Diagnosis [facility] [address] [place] [address] Apr, [facility] [address] [facility] [place] [address] Apr, [address] [place] [address] Mar, Non-intractable vomiting wit h nausea, unspecified vomiting type R11.2 [facility] [address] [place] [address] Mar, [address] [place] [address] Mar, [address] [place] [address] Mar, [address] [place] [address] Mar, [address] [place] [address] Mar, [address] [place] [address] Mar, [facility] [address] [id number] [place] [address] Mar, [address] [place] [address] Mar, [address] [place] [address] Mar, [address] [place] [address] Mar, Depression, major, recurrent , moderate 296.32 [facility] [address] [facility] [place] [address] Mar, [address] [place] [address] Mar, [address] [place] [address] Mar, [facility] [address] [facility] [place] [address] Mar, [facility] [address] [facility] [place] [address] Mar, [facility] [address] [id number] [place] [address] Feb, [address] [place] [address] Feb, Essential hypertension I10 ; Tachycardia R00.0 ; Family history of heart disease Z82.49 and Type 2 diabetes mellitus E11.9 [facility] [address] [facility] [place] [address] Feb, [facility] [place] [address] [place] [address] Feb, [address] [place] [address] Feb, Type 2 diabetes mellitus E11 .9 [facility] [address] [place] [address] Feb, [facility] [address] [id number] [place] [address] Feb, [facility] [place] [address] [place] [address] Feb, [address] [place] [address] Feb, [facility] [address] [place] [address] Feb, [facility] [place] [facility] [address] [facility] [address] [place] [address] Feb, Acute otitis externa of left ear, unspecified type H60.502 [address] [place] [address] Feb, Screening mammogram, encount er for Z12.31 [address] [place] [address] Feb, [address] [place] [address] Feb, [address] [place] [address] Feb, [address] [place] [address] 09 Feb, 2019 DDD (degenerative disc disea se), lumbar M51.36 [facility] [address] [facility] [place] [address] 08 Feb, 2019 Borderline personality disorder F60.3 ; Major depressive disorder, recurrent episode, moderate F33.1 and Panic disorder F41.0 [address] [place] [address] 08 Feb, 2019 [address] [place] [address] Feb, [address] [place] [address] 07 Feb, 2019 Depression, major, recurrent , moderate 296.32 [address] [place] [address] 07 Feb, 2019 [facility] [address] [place] [id number] Feb, [facility] [address] [place] [id number] Feb, [address] [place] [address] Feb, Acute bronchitis due to Myco plasma pneumoniae J20.0 [address] [place] [address] Feb, Low back pain M54.5 [facility] [place] [address] [place] [address] Feb, Pain in right hip M25.551 ; Pain in left hip M25.552 ; Other chronic pain G89.29 ; Vitamin D deficiency E55.9 ; Low back pain M54.5 ; Acute bronchitis due to Mycoplasma pneumoniae J20.0 and Type 2 diabetes mellitus E11.9 [facility] [place] [address] [place] [address] Jan, [facility] [place] [address] [place] [address] Jan, [facility] [place] [address] [place] [address] Jan, [facility] [place] [address] [place] [address] Jan, [facility] [place] [address] [place] [address] Jan, [facility] [place] [address] [place] [address] Jan, [facility] [place] [address] [place] [address] Jan, Depression, major, recurrent , moderate 296.32 [facility] [place] [address] [place] [address] Dec, Non-intractable vomiting wit h nausea, unspecified vomiting type R11.2 [facility] [place] [address] [place] [address] Dec, Encounter for immunization Z 23 [facility] [place] [address] [place] [address] Dec, [facility] [place] [address] [place] [address] Dec, [facility] [address] [facility] [id number] [place] [address] Dec, Acute diffuse otitis externa of left ear H60.312 [facility] [address] [facility] [place] [address] Dec, Borderline personality disorder F60.3 ; Major depressive disorder, recurrent episode, moderate F33.1 and Panic disorder F41.0 [facility] [address] [place] [address] Dec, Depression, major, recurrent , moderate 296.[address] [place] [address] Dec, Open wound of left great toe , initial encounter S91.102A ; Oral pain K13.79 ; Type 2 diabetes mellitus E11.9 and Depression, major, recurrent, moderate 296.32 [address] [place] [address] Nov, [address] [place] [address] Nov, [address] [place] [address] Nov, [facility] [address] [place] [address] Nov, [address] [place] [address] Nov, [address] [place] [address] Nov, [address] [place] [address] Nov, Acute pain of right wrist M2 5.531 ; Contusion of left knee, initial encounter S80.02XA ; Open wound of left great toe, initial encounter S91.102A and Fall, initial encounter W19.XXXA [facility] [address] [place] [address] Nov, Depression, major, recurrent , moderate 296.32 [address] [place] [address] Nov, Oral pain K13.79 ; Excessive cerumen in left ear canal H61.22 ; Impetigo L01.00 and Dyspnea R06.[address] [place] [address] Nov, [facility] [address] [facility] [id number] [address] [place] [address] Nov, Acute diffuse otitis externa of left ear H60.312 [facility] [address] [id number] [place] [address] Nov, Borderline personality disorder F60.3 ; Major depressive disorder, recurrent episode, moderate F33.1 and Panic disorder F41.[address] [place] [address] Oct, [address] [place] [address] Oct, [address] [place] [address] Oct, Depression, major, recurrent , moderate 296.32 [facility] [address] [place] [address] Oct, Acute swimmer's ear of left side H60.332 [facility] [address] [id number] [place] [address] Sep, Major depressive disorder, recurrent epi sode, moderate F33.1 ; Borderline personality disorder F60.3 and Panic disorder F41.[address] [place] [address] Sep, [address] [place] [address] Sep, [facility] [address] [id number] [place] [address] Sep, [facility] [address] [id number] [place] [address] Sep, [facility] [address] [id number] [place] [address] Sep, [address] [place] [address] Sep, Depression, major, recurrent , moderate 296.32 [facility] [address] [id number] [place] [address] Sep, [address] [place] [address] Sep, [address] [place] [address] Aug, [address] [place] [address] Aug, [address] [place] [address] Aug, Depression, major, recurrent , moderate 296.32 [facility] [address] [id number] [place] [address] Aug, Major depressive disorder, recurrent epi sode, moderate F33.1 ; Panic disorder F41.0 and Borderline personality disorder F60.3 [address] [place] [address] Aug, Anxiety F41.9 ; Type 2 diabe nadine mellitus E11.9 ; Mixed incontinence urge and stress N39.46 ; Screening mammogram, encounter for Z12.31 and Morbid obesity E66.[address] [place] [address] Aug, Type 2 diabetes mellitus E11 .[address] [place] [address] Aug, [address] [place] [address] Aug, Scalp cyst L72.9 and Morbid obesity E66.01 [facility] [address] [place] [address] Aug, [facility] [address] [id number] [place] [address] Jul, Major depressive disorder, recurrent epi sode, moderate F33.1 ; Panic disorder F41.0 and Borderline personality disorder F60.3 [facility] [place] [address] [place] [address] Jul, [facility] [address] [place] [address] Jul, [facility] [address] [place] [address] Jul, [facility] [address] [place] [address] Jul, [facility] [place] [address] [place] [address] Jul, [facility] [address] [place] [address] Jul, Depression, major, recurrent , moderate 296.32 [facility] [address] [place] [address] June, Type 2 diabetes mellitus E11 .9 ; Morbid (severe) obesity due to excess calories E66.01 and Body mass index (BMI) of 40.0-44.9 in adult Z68.41 [facility] [place] [address] [place] [address] June, [facility] [address] [place] [address] June, [facility] [address] [place] [address] June, Type 2 diabetes mellitus E11 .9 [facility] [address] [place] [address] June, Type 2 diabetes mellitus E11 .9 and Morbid obesity E66.01 [facility] [place] [address] [place] [address] June, [facility] [place] [address] [place] [address] June, [facility] [place] [address] [place] [address] June, [facility] [place] [address] [place] [address] June, Morbid obesity E66.01 [facility] [place] [address] [place] [address] May, [facility] [place] [address] [place] [address] May, [facility] [place] [address] [place] [address] May, [facility] [place] [address] [place] [address] May, Hypothyroidism E03.9 ; Type 2 diabetes mellitus E11.9 and Morbid obesity E66.01 [facility] [place] [address] [place] [address] May, Morbid obesity E66.01 [place] [address] [id number] [place] [address] May, Peripheral edema R60.9 [place] [address] [id number] [place] [address] May, Peripheral edema R60.9 ; Weight gain R63 .5 ; Shortness of breath R06.02 and Morbid obesity E66.01 [facility] [address] [place] [address] May, Pedal edema R60.0 and Morbid obesity E66.01 [facility] [place] [address] [place] [address] May, [facility] [place] [address] [place] [address] May, [facility] [address] [place] [address] May, [facility] [address] [facility] [id number] [address] [place] [address] Apr, Bilateral lower extremity ed maria del rosario R60.0 ; Morbid obesity E66.01 and Weight gain R63.5 [facility] [place] [address] [place] [address] Apr, [facility] [address] [place] [address] Apr, [facility] [place] [address] [place] [address] Apr, Migraine with aura and witho ut status migrainosus, not intractable G43.109 [facility] [address] [place] [address] Apr, [facility] [place] [address] [place] [address] Apr, [facility] [address] [place] [address] Apr, [facility] [place] [address] [place] [address] Apr, [facility] [place] [address] [place] [address] Apr, [facility] [place] [address] [place] [address] 07 Apr, 2018 Type 2 diabetes mellitus E11 .9 ; Pain in right knee M25.561 ; Other chronic pain G89.29 ; Pain in right shoulder M25.511 ; Morbid obesity E66.01 and Diabetic polyneuropathy associated with type 2 diabetes mellitus E11.42 [facility] [place] [address] [place] [address] 05 Apr, 2018 [facility] [address] [facility] [id number] [address] [place] [address] Apr, [facility] [address] [place] [address] Mar, Open wound of right foot, in itial encounter S91.301A and Morbid obesity E66.01 [facility] [address] [place] [address] Mar, Dysuria R30.0 and Painful ur ination R30.9 [address] [place] [address] 07 Mar, 2018 Depression, major, recurrent , moderate 296.32 [address] [place] [address] Mar, [place] [address] [place] [address] Mar, [place] [address] [address] Feb, Dental examination Z01.20 [place] [address] [address] Nov, [place] [address] [address] Nov, [place] [address] [address] 08 Mar, 2015 Major depressive disorder, recurrent epi sode, moderate F33.1 ; Panic disorder F41.0 and Borderline personality disorder F60.3 [place] [address] [address] Sep, Depression, major, recurrent, moderate 2 96.32 ; Agoraphobia with panic disorder 300.21 and Borderline personality disorder 301.83 [place] [address] [address] Aug, Depression, major, recurrent, moderate 2 96.32 ; Panic disorder without agoraphobia 300.01 and Borderline personality disorder 301.83 [facility] [id number] [place] [address] Jul, Depression, major, recurrent, moderate 2 96.32 ; Agoraphobia with panic disorder 300.21 and Posttraumatic stress disorder 309.81 [facility] [id number] [place] [address] 30 May, 2014 [facility] [address] [address] 14 May, 2014 [facility] [address] [place] [id number] [place] [address] May, [facility] [address] [place] [id number] [place] [address] Apr, [facility] [id number] [place] [address] Apr, [facility] [address] [id number] [place] [address] Apr, [facility] [id number] [place] [address] Apr, [facility] [id number] [place] [address] Mar, [facility] [address] [place] [id number] [place] [address] Mar, [facility] [id number] [place] [address] Mar, [facility] [id number] [place] [address] Mar, [facility] [id number] [place] [address] Feb, [facility] [address] [id number] [place] [address] Feb, [facility] [address] [place] [address] Jan, [facility] [id number] [place] [address] Jan, [facility] [address] [id number] [place] [address] Jan, [facility] [address] [id number] [place] [address] Jan, [facility] [address] [id number] [place] [id number] Dec, [facility] [address] [facility] [place] [address] , [place] [id number] Dec, [facility] [address] [id number] [place] [address] Dec, [facility] [id number] [place] [address] Dec, [facility] [id number] [place] [address] Dec, [facility] [id number] [place] [address] Nov, [facility] [address] [id number] [place] [address] Nov, [facility] [id number] [place] [address] Nov, [facility] [address] [id number] [place] [address] Nov, [facility] [address] [id number] [place] [address] Nov, [facility] [address] [id number] [place] [address] Nov, [facility] [id number] [place] [address] Nov, [facility] [address] [id number] [place] [address] Nov, [facility] [address] [id number] [place] [address] Oct, [facility] [id number] [place] [address] Oct, [facility] [address] [id number] [place] [address] Sep, [facility] [address] [id number] [place] [address] Sep, [facility] [address] [id number] [place] [address] Sep, [facility] [address] [id number] [place] [address] Sep, [facility] [address] [id number] [place] [address] Sep, [facility] [address] [id number] [place] [address] Sep, [facility] [address] [id number] [place] [address] Jul, [facility] [address] [id number] [place] [address] Jul, [facility] [address] [id number] [place] [address] June, [facility] [address] [id number] [place] [address] June, [facility] [address] [id number] [place] [address] June, [facility] [address] [id number] [place] [address] June, [facility] [address] [id number] [place] [address] May, [facility] [address] [id number] [place] [address] May, [facility] [address] [id number] [place] [address] 15 May, 2013 [facility] [address] [id number] [place] [address] May, [facility] [address] [id number] [place] [address] Apr, [facility] [address] [id number] [place] [address] Apr, [facility] [address] [id number] [place] [address] Mar, [facility] [address] [id number] [place] [address] Mar, [facility] [address] [id number] [place] [address] Feb, [facility] [address] [id number] [place] [address] Feb, [facility] [address] [id number] [place] [address] Feb, [facility] [address] [id number] [place] [address] Feb, [facility] [address] [id number] [place] [address] Dec, [facility] [address] [id number] [place] [address] Dec, [facility] [address] [id number] [place] [address] Dec, [facility] [address] [id number] [place] [address] Dec, [facility] [address] [id number] [place] [address] Nov, [facility] [address] [id number] [place] [address] Nov, [facility] [facility] [id number] [place] [address] Nov, [facility] [id number] [place] [address] Nov, [facility] [id number] [place] [address] 23 Oct, 2012 [facility] [address] [facility] [id number] [place] [address] 16 Oct, 2012 [facility] [id number] [place] [address] 10 Oct, 2012 [facility] [id number] [place] [address] 03 Oct, 2012 [facility] [id number] [place] [address] Aug, [facility] [id number] [place] [address] Aug, [facility] [id number] [place] [address] Aug, [facility] [id number] [place] [address] Aug, [facility] [id number] [place] [address] Aug, [facility] [id number] [place] [address] Jul, [facility] [id number] [place] [address] June, [facility] [id number] [place] [address] May, [facility] [id number] [place] [address] 14 Apr, 2012 [facility] [id number] [place] [address] Mar, [facility] [id number] [place] [address] Mar, [facility] [id number] [place] [address] Jan, [facility] [id number] [place] [address] Jan, [facility] [id number] [place] [address] Jan, [facility] [id number] [place] [address] Jan, [facility] [id number] [place] [address] Jan, [facility] [id number] [place] [address] Jan, [facility] [id number] [place] [address] Jan, [facility] [id number] [place] [address] Jan, [facility] [id number] [place] [address] Jan, [facility] [id number] [place] [address] Jan, [facility] [id number] [place] [address] Dec, [facility] [id number] [place] [address] Dec, [facility] [id number] [place] [address] Dec, [facility] [id number] [place] [address] Dec, [facility] [id number] [place] [address] Dec, [facility] [id number] [place] [address] Dec, [facility] [id number] [place] [address] Nov, [facility] [id number] [place] [address] Nov, [facility] [id number] [place] [address] 24 Oct, 2011 [facility] [address] [facility] [id number] [facility] [place] [address] Oct, [facility] [id number] [place] [address] Oct, [facility] [id number] [place] [address] Oct, [facility] [id number] [place] [address] Sep, [facility] [id number] [facility] [place] [address] Sep, [facility] [id number] [place] [address] Aug, [facility] [id number] [place] [address] Aug, [facility] [id number] [place] [address] Aug, [facility] [id number] [place] [address] Aug, [facility] [id number] [place] [address] Aug, [facility] [id number] [place] [address] Aug, [facility] [id number] [place] [address] Jul, [facility] [id number] [place] [address] Jul, [facility] [id number] [place] [address] June, [facility] [id number] [place] [address] June, [facility] [id number] [place] [address] May, [facility] [id number] [place] [address] 17 May, 2011 [facility] [id number] [place] [address] 05 May, 2011 [facility] [id number] [place] [address] May, [facility] [id number] [place] [address] Apr, [facility] [id number] [place] [address] Apr, [facility] [id number] [place] [address] Apr, [facility] [id number] [place] [address] Apr, [facility] [id number] [place] [address] Mar, [facility] [id number] [place] [address] Mar, [facility] [id number] [place] [address] Feb, [facility] [id number] [place] [address] Feb, [facility] [id number] [place] [address] Feb, [facility] [id number] [place] [address] Feb, [facility] [id number] [place] [address] Feb, [facility] [id number] [place] [address] Jan, [facility] [id number] [place] [address] Dec, [facility] [id number] [place] [address] Dec, [facility] [id number] [place] [address] Dec, [facility] [id number] [place] [address] Nov, [facility] [id number] [place] [address] Nov, [facility] [id number] [place] [address] Aug, [facility] [id number] [place] [address] Jan, [facility] [id number] [place] [address] Dec, [facility] [id number] [place] [address] Nov, [facility] [id number] [place] [address] Jan, [facility] [id number] [place] [address] Jan, IMMUNIZATIONS No Known Immunizations SOCIAL HISTORY Never Assessed REASON FOR VISIT PLAN OF CARE VITAL SIGNS Height 65 in 2013-05-07 Weight 235.4 lbs 2013-05-07 Temperature 98.5 degrees Fahrenheit 2013-05-07 Heart Rate 80 bpm 2013-05-07 Respiratory Rate 20 2013-05-07 Blood pressure systolic 120 mmHg 2013-05-07 Blood pressure diastolic 88 mmHg 2013-05-07 MEDICATIONS Unknown Medications RESULTS No Results PROCEDURES [...] History Morbid (severe) obesity due to excess ca lories Medical History Functional urinary incontinence Surgical History back surgery x 4 Surgical History carpel tunnel right hand Surgical History hysterectomy Surgical History surgery on left breast Surgical History x 3 Hospitalization History [facility] [address] [place] [address] for back surge ry Hospitalization History lt breast surgery(cancer)
--- OUTSIDE RECORDS SUMMARY | 2019-05-02 19:45 | XMS REPORT | Encounter Summary ---
Author Author [facility] Organization [facility] Address Unknown Phone Unavailable Care Team Providers Care Machine Hose Cutter Name Role Phone Hasmukh Ron PCP Encounter Details Care Team Description Date Type Department 06/17/2017 Imaging [facility] Virtual Rev[facility] e Appointment Location Social [...] Procedure Name Priority Date/Time Associated Diag nosis CT OUTSIDE IMAGES FOR Routine 06/17/2017 PACS 8:52 PM CDT documented in this encounter Results * CT Outside images for PACS (06/17/2017 8:52 PM CDT) Specimen Performing Organization Address City/State/Zipcode Ph one Number [place] documented in this encounter Visit Diagnoses Not on filedocumented in this encounter
--- OUTSIDE RECORDS SUMMARY | 2019-05-02 19:45 | XMS REPORT ---
Author Author Filipe, Shannon Doctor Organization [facility] Address Unknown Phone Unavailable Care Team Providers Care Citizenship Instructor Name Role Phone Migration, Doctor Unavailable Unavailable PROBLEMS Type Condition ICD9-CM Code QVY40-LA Code Onset Dates Condition S tatus SNOMED Code Problem Panic disorder F41.0 Active 54198 1005 Problem Borderline personality disorder F60.3 Active 63217120 Problem Major depressive disorder, recurrent episode, moderate F33.1 Active 636660827 Problem IZABEL on CPAP G47.33 Active 59024826 Problem Open wound of right foot, initial encounter S91.30 1A Active [id number] Problem Spinal stenosis M48.00 Active 7610 7001 Problem Breast cancer C50.919 Active 234227 009 Problem Insomnia G47.00 Active 509791813 Problem Morbid (severe) obesity due to excess calories E66 .01 Active 896918137 Problem Hypothyroidism E03.9 Active 40693 008 Problem GERD (gastroesophageal reflux disease) K21.9 Active 960898128 Problem Osteoarthritis M19.90 Active 21385 5006 Problem Anxiety F41.9 Active 40553275 Problem Essential hypertension I10 Active 01254903 Problem Arthritis M19.90 Active 0643115 Problem Migraine G43.909 Active 90472066 Problem Diabetic polyneuropathy associated with type 2 d iabetes mellitus E11.42 Active 23840040 Problem Migraine with aura and without status migrainosu s, not intractable G43.109 Active 5586691 Problem DDD (degenerative disc disease), lumbar M51.36 Active 38256736 Problem Major depression F32.9 Active 370 601420 Problem BMI 45.0-49.9, adult Z68.42 Active 464936264 Problem Type 2 diabetes mellitus E11.9 Activ e 67962621 Problem Other chronic pain G89.29 Active 8 8888599 Problem Functional urinary incontinence R39.81 Active 807006866 Problem Mixed incontinence urge and stress N39.46 Active 654513945 Problem Body mass index (BMI) of 40.0-44.9 in adult Z68.41 Active 371870317 Problem Vitamin D deficiency E55.9 Active 26606171 ALLERGIES No Information ENCOUNTERS Encounter Location Date Diagnosis [facility] [id number] [place] [address] 06 May, [address] [place] [address] Apr, [address] [place] [address] 11 Apr, 2019 UTI symptoms R39.[address] [place] [address] 09 Apr, 2019 Depression, major, recurrent , moderate 296.32 [address] [place] [address] 06 Apr, 2019 [facility] [address] [facility] [place] [address] 02 Apr, 2019 Borderline personality disorder F60.3 ; Major depressive disorder, recurrent episode, moderate F33.1 and Panic disorder F41.0 [address] [place] [address] Mar, Non-intractable vomiting wit h nausea, unspecified vomiting type R11.[address] [place] [address] Mar, [address] [place] [address] Mar, [address] [place] [address] Mar, [address] [place] [address] Mar, [address] [place] [address] Mar, [address] [place] [address] Mar, [facility] [id number] [place] [address] 18 Mar, [address] [place] [address] Mar, [address] [place] [address] Mar, [address] [place] [address] Mar, Depression, major, recurrent , moderate 296.32 [facility] [address] [facility] [place] [address] Mar, [address] [place] [address] Mar, [address] [place] [address] 04 Mar, 2019 [facility] [id number] [place] [address] 03 Mar, 2019 [facility] [id number] [place] [address] Mar, [facility] [id number] [place] [address] Feb, [address] [place] [address] Feb, Essential hypertension I10 ; Tachycardia R00.0 ; Family history of heart disease Z82.49 and Type 2 diabetes mellitus E11.9 [facility] [address] [facility] [place] [address] Feb, [address] [place] [address] Feb, [address] [place] [address] Feb, Type 2 diabetes mellitus E11 .[address] [place] [address] Feb, [facility] [address] [facility] [place] [address] Feb, [address] [place] [address] Feb, [address] [place] [address] Feb, [address] [place] [address] Feb, [facility] [address] [place] [address] Feb, Acute otitis externa of left ear, unspecified type H60.[address] [place] [address] Feb, Screening mammogram, encount er for Z12.[address] [place] [address] Feb, [address] [place] [address] Feb, [address] [place] [address] Feb, [address] [place] [address] Feb, DDD (degenerative disc disea se), lumbar M51.36 [facility] [address] [facility] [place] [address] Feb, Borderline personality disorder F60.3 ; Major depressive disorder, recurrent episode, moderate F33.1 and Panic disorder F41.[address] [place] [address] Feb, [address] [place] [address] Feb, [address] [place] [address] Feb, Depression, major, recurrent , moderate 296.[address] [place] [address] Feb, [facility] [address] [place] [address] Feb, [facility] [address] [place] [address] Feb, [address] [place] [address] Feb, Acute bronchitis due to Myco plasma pneumoniae J20.[address] [place] [address] Feb, Low back pain M54.[address] [place] [address] Feb, Pain in right hip M25.551 ; Pain in left hip M25.552 ; Other chronic pain G89.29 ; Vitamin D deficiency E55.9 ; Low back pain M54.5 ; Acute bronchitis due to Mycoplasma pneumoniae J20.0 and Type 2 diabetes mellitus E11.[address] [place] [address] Jan, [address] [place] [address] Jan, [address] [place] [address] Jan, [address] [place] [address] Jan, [address] [place] [address] Jan[address] [place] [address] Jan, [address] [place] [address] Jan, Depression, major, recurrent , moderate 296.[address] [place] [address] Dec, Non-intractable vomiting wit h nausea, unspecified vomiting type R11.[address] [place] [address] Dec, Encounter for immunization Z [address] [address] [place] [address] Dec, [address] [place] [address] Dec, [facility] [address] [facility] [id number] [address] [place] [address] Dec, Acute diffuse otitis externa of left ear H60.312 [facility] [address] [facility] [id number] [place] [address] Dec, Borderline personality disorder F60.3 ; Major depressive disorder, recurrent episode, moderate F33.1 and Panic disorder F41.[address] [place] [address] Dec, Depression, major, recurrent , moderate 296.[address] [place] [address] Dec, Open wound of left great toe , initial encounter S91.102A ; Oral pain K13.79 ; Type 2 diabetes mellitus E11.9 and Depression, major, recurrent, moderate 296.32 [facility] [address] [place] [address] Nov, [address] [place] [address] Nov, [address] [place] [address] Nov, [facility] [place] [facility] [address] [place] [address] Nov, [facility] [address] [place] [address] Nov, [address] [place] [address] Nov, [address] [place] [address] Nov, Acute pain of right wrist M2 5.531 ; Contusion of left knee, initial encounter S80.02XA ; Open wound of left great toe, initial encounter S91.102A and Fall, initial encounter W19.XXXA [address] [place] [address] Nov, Depression, major, recurrent , moderate 296.32 [address] [place] [address] Nov, Oral pain K13.79 ; Excessive cerumen in left ear canal H61.22 ; Impetigo L01.00 and Dyspnea R06.00 [address] [place] [address] Nov, [facility] [address] [facility] [id number] [address] [place] [address] Nov, Acute diffuse otitis externa of left ear H60.312 [facility] [address] [facility] [id number] [place] [address] Nov, Borderline personality disorder F60.3 ; Major depressive disorder, recurrent episode, moderate F33.1 and Panic disorder F41.0 [address] [place] [address] Oct, [address] [place] [address] Oct, [address] [place] [address] 16 Oct, 2018 Depression, major, recurrent , moderate 296.32 [facility] [address] [place] [address] 12 Oct, 2018 Acute swimmer's ear of left side H60.332 [facility] [address] [id number] [place] [address] Sep, Major depressive disorder, recurrent epi sode, moderate F33.1 ; Borderline personality disorder F60.3 and Panic disorder F41.0 [facility] [address] [place] [address] Sep, [facility] [address] [place] [address] Sep, [facility] [address] [id number] [place] [address] Sep, [facility] [address] [id number] [place] [address] Sep, [facility] [address] [id number] [place] [address] Sep, [facility] [address] [place] [address] Sep, Depression, major, recurrent , moderate 296.32 [facility] [id number] [place] [address] Sep, [address] [place] [address] Sep, [facility] [address] [place] [address] Aug, [facility] [address] [place] [address] Aug, [address] [place] [address] Aug, Depression, major, recurrent , moderate 296.32 [facility] [address] [id number] [place] [address] Aug, Major depressive disorder, recurrent epi sode, moderate F33.1 ; Panic disorder F41.0 and Borderline personality disorder F60.3 [facility] [address] [place] [address] Aug, Anxiety F41.9 ; Type 2 diabe nadine mellitus E11.9 ; Mixed incontinence urge and stress N39.46 ; Screening mammogram, encounter for Z12.31 and Morbid obesity E66.01 [facility] [place] [address] [place] [address] Aug, Type 2 diabetes mellitus E11 .9 [facility] [address] [place] [address] Aug, [address] [place] [address] Aug, Scalp cyst L72.9 and Morbid obesity E66.[address] [place] [address] Aug, [facility] [address] [id number] [place] [address] Jul, Major depressive disorder, recurrent epi sode, moderate F33.1 ; Panic disorder F41.0 and Borderline personality disorder F60.3 [facility] [address] [place] [address] Jul, [address] [place] [address] Jul, [address] [place] [address] Jul, [facility] [address] [place] [address] Jul, [facility] [address] [place] [address] Jul, [address] [place] [address] Jul, Depression, major, recurrent , moderate 296.32 [facility] [address] [place] [address] June, Type 2 diabetes mellitus E11 .9 ; Morbid (severe) obesity due to excess calories E66.01 and Body mass index (BMI) of 40.0-44.9 in adult Z68.41 [facility] [place] [address] [place] [address] June, [facility] [place] [address] [place] [address] June, [facility] [place] [address] [place] [address] June, Type 2 diabetes mellitus E11 .9 [facility] [address] [place] [address] June, Type 2 diabetes mellitus E11 .9 and Morbid obesity E66.01 [facility] [place] [address] [place] [address] June, [facility] [place] [address] [place] [address] June, [facility] [place] [address] [place] [address] June, [facility] [place] [address] [place] [address] June, Morbid obesity E66.01 [facility] [place] [address] [place] [address] May, [facility] [place] [address] [place] [address] May, [facility] [place] [address] [place] [address] May, [facility] [place] [address] [place] [address] May, Hypothyroidism E03.9 ; Type 2 diabetes mellitus E11.9 and Morbid obesity E66.01 [facility] [place] [address] [place] [address] May, Morbid obesity E66.01 [facility] [address] [id number] [place] [address] May, Peripheral edema R60.9 [facility] [address] [facility] [id number] [place] [address] May, Peripheral edema R60.9 ; Weight gain R63 .5 ; Shortness of breath R06.02 and Morbid obesity E66.01 [facility] [place] [facility] [address] [place] [address] May, Pedal edema R60.0 and Morbid obesity E66.01 [facility] [address] [place] [address] May, [facility] [address] [place] [address] May, [facility] [address] [place] [address] May, [facility] [address] [facility] [id number] [address] [place] [address] Apr, Bilateral lower extremity ed maria del rosario R60.0 ; Morbid obesity E66.01 and Weight gain R63.5 [facility] [place] [address] [place] [address] Apr, [facility] [address] [place] [address] Apr, [facility] [address] [place] [address] Apr, Migraine with aura and witho ut status migrainosus, not intractable G43.109 [facility] [place] [address] [place] [address] Apr, [facility] [address] [place] [address] Apr, [facility] [address] [place] [address] Apr, [facility] [address] [place] [address] 08 Apr, 2018 [facility] [place] [address] [place] [address] Apr, [facility] [place] [address] [place] [address] Apr, Type 2 diabetes mellitus E11 .9 ; Pain in right knee M25.561 ; Other chronic pain G89.29 ; Pain in right shoulder M25.511 ; Morbid obesity E66.01 and Diabetic polyneuropathy associated with type 2 diabetes mellitus E11.42 [facility] [place] [address] [place] [address] Apr, [facility] [address] [facility] [id number] [address] [place] [address] Apr, [facility] [place] [facility] [address] [place] [address] Mar, Open wound of right foot, in itial encounter S91.301A and Morbid obesity E66.01 [facility] [place] [facility] [address] [place] [address] Mar, Dysuria R30.0 and Painful ur ination R30.9 [facility] [place] [address] [place] [address] 07 Mar, 2018 Depression, major, recurrent , moderate 296.32 [facility] [address] [place] [address] Mar, [facility] [address] [place] [address] Mar, [facility] [address] [id number] [place] [address] Feb, Dental examination Z01.20 [facility] [address] [id number] [place] [address] Nov, [facility] [address] [id number] [place] [address] Nov, [address] [address] 08 Mar, 2015 Major depressive disorder, recurrent epi sode, moderate F33.1 ; Panic disorder F41.0 and Borderline personality disorder F60.3 [facility] [address] [address] Sep, Depression, major, recurrent, moderate 2 96.32 ; Agoraphobia with panic disorder 300.21 and Borderline personality disorder 301.83 [facility] [address] [address] Aug, Depression, major, recurrent, moderate 2 96.32 ; Panic disorder without agoraphobia 300.01 and Borderline personality disorder 301.83 [facility] [address] [address] Jul, Depression, major, recurrent, moderate 2 96.32 ; Agoraphobia with panic disorder 300.21 and Posttraumatic stress disorder 309.81 [facility] [address] [address] 30 May, 2014 [facility] [address] [address] 14 May, 2014 [facility] [address] [address] May, [facility] [address] [address] Apr, [facility] [address] [address] Apr, [facility] [address] [address] Apr, [facility] [address] [address] Apr, [facility] [address] [address] 16 Mar, 2014 [facility] [address] [address] Mar, [facility] [address] [id number] [place] [address] Mar, [facility] [address] [id number] [place] [address] Mar, [facility] [address] [id number] [place] [address] Feb, [facility] [address] [id number] [place] [address] Feb, [facility] [address] [id number] [place] [address] Jan, [facility] [address] [id number] [place] [address] Jan, [facility] [address] [id number] [place] [address] Jan, [facility] [id number] [place] [address] Jan, [facility] [id number] [place] [id number] Dec, [facility] [id number] [place] [id number] Dec, [facility] [address] [id number] [place] [address] Dec, [facility] [address] [id number] [place] [address] Dec, [facility] [address] [id number] [place] [address] Dec, [facility] [address] [id number] [place] [address] Nov, [facility] [address] [id number] [place] [address] Nov, [facility] [address] [id number] [place] [address] Nov, [facility] [address] [id number] [place] [address] Nov, [facility] [address] [facility] [id number] [place] [address] Nov, [facility] [address] [facility] [id number] [place] [address] Nov, [facility] [address] [id number] [place] [address] Nov, [facility] [address] [facility] [id number] [place] [address] Nov, [facility] [address] [facility] [id number] [place] [address] Oct, [facility] [address] [facility] [id number] [place] [address] Oct, [facility] [address] [id number] [place] [address] Sep, [facility] [address] [id number] [place] [address] Sep, [facility] [address] [facility] [id number] [place] [address] Sep, [facility] [address] [id number] [place] [address] Sep, [facility] [address] [id number] [place] [address] Sep, [facility] [address] [id number] [place] [address] Sep, [facility] [address] [facility] [id number] [place] [address] Jul, [facility] [address] [id number] [place] [address] Jul, [facility] [address] [id number] [place] [address] June, [facility] [address] [id number] [place] [address] June, [facility] [address] [id number] [place] [address] June, [facility] [address] [id number] [place] [address] June, [facility] [address] [id number] [place] [address] May, [facility] [address] [id number] [place] [address] May, [facility] [address] [id number] [place] [address] May, [facility] [address] [id number] [place] [address] May, [facility] [address] [id number] [place] [address] Apr, [facility] [address] [id number] [place] [address] Apr, [facility] [address] [id number] [place] [address] Mar, [facility] [address] [id number] [place] [address] Mar, [facility] [address] [id number] [place] [address] Feb, [facility] [address] [id number] [place] [address] Feb, [facility] [address] [id number] [place] [address] Feb, [facility] [address] [id number] [place] [address] Feb, [facility] [address] [id number] [place] [address] Dec, [facility] [address] [id number] [place] [address] Dec, [facility] [address] [id number] [place] [address] Dec, [facility] [address] [id number] [place] [address] Dec, [facility] [address] [id number] [place] [address] Nov, [facility] [address] [id number] [place] [address] Nov, [facility] [facility] [address] [id number] [place] [address] Nov, [facility] [address] [facility] [id number] [place] [address] Nov, [facility] [address] [id number] [place] [address] Oct, [facility] [address] [id number] [place] [address] Oct, [facility] [address] [id number] [place] [address] Oct, [facility] [address] [id number] [place] [address] Oct, [facility] [address] [id number] [place] [address] Aug, [facility] [address] [id number] [place] [address] Aug, [facility] [address] [id number] [place] [address] Aug, [facility] [address] [id number] [place] [address] Aug, [facility] [address] [id number] [place] [address] Aug, [facility] [address] [id number] [place] [address] Jul, [facility] [address] [id number] [place] [address] June, [facility] [address] [id number] [place] [address] 10 May, 2012 [facility] [address] [id number] [place] [address] 14 Apr, 2012 [facility] [address] [id number] [place] [address] 13 Mar, 2012 [facility] [address] [id number] [place] [address] Mar, [facility] [address] [id number] [place] [address] Jan, [facility] [address] [id number] [place] [address] Jan, [facility] [address] [id number] [place] [address] Jan, [facility] [address] [id number] [place] [address] Jan, [facility] [address] [id number] [place] [address] Jan, [facility] [address] [id number] [place] [address] Jan, [facility] [address] [id number] [place] [address] Jan, [facility] [address] [id number] [place] [address] Jan, [facility] [address] [id number] [place] [address] Jan, [facility] [address] [id number] [place] [address] Jan, [facility] [address] [id number] [place] [address] Dec, [facility] [address] [id number] [place] [address] Dec, [facility] [address] [id number] [place] [address] Dec, [facility] [address] [id number] [place] [address] Dec, [facility] [address] [id number] [place] [address] Dec, [facility] [address] [id number] [place] [address] Dec, [facility] [address] [id number] [place] [address] Nov, [facility] [address] [id number] [place] [address] Nov, [facility] [address] [id number] [place] [address] Oct, [facility] [address] [id number] [place] [address] Oct, [facility] [address] [id number] [place] [address] Oct, [facility] [address] [id number] [place] [address] Oct, [facility] [address] [id number] [place] [address] Sep, [facility] [address] [id number] [place] [address] Sep, [facility] [address] [id number] [place] [address] Aug, [facility] [address] [id number] [place] [address] Aug, [facility] [address] [id number] [place] [address] Aug, [facility] [address] [id number] [place] [address] Aug, [facility] [address] [id number] [place] [address] Aug, [facility] [address] [id number] [place] [address] Aug, [facility] [address] [id number] [place] [address] Jul, [facility] [address] [id number] [place] [address] Jul, [facility] [address] [id number] [place] [address] June, [facility] [address] [id number] [place] [address] June, [facility] [address] [id number] [place] [address] May, [facility] [address] [id number] [place] [address] May, [facility] [address] [id number] [place] [address] May, [facility] [address] [id number] [place] [address] May, [facility] [address] [id number] [place] [address] Apr, [facility] [address] [id number] [place] [address] Apr, [facility] [address] [id number] [place] [address] Apr, [facility] [address] [id number] [place] [address] Apr, [facility] [address] [id number] [place] [address] Mar, [facility] [address] [id number] [place] [address] Mar, [facility] [address] [id number] [place] [address] Feb, [facility] [address] [id number] [place] [address] Feb, [facility] [id number] [place] [address] Feb, [facility] [id number] [place] [address] Feb, [facility] [id number] [place] [address] Feb, [facility] [id number] [place] [address] Jan, [facility] [id number] [place] [address] Dec, [facility] [id number] [place] [address] Dec, [facility] [id number] [place] [address] Dec, [facility] [id number] [place] [address] Nov, [facility] [id number] [place] [address] Nov, [facility] [id number] [place] [address] Aug, [facility] [id number] [place] [address] Jan, [facility] [id number] [place] [address] Dec, [facility] [id number] [place] [address] Nov, [facility] [id number] [place] [address] Jan, [facility] [id number] [place] [address] Jan, IMMUNIZATIONS No Known Immunizations SOCIAL HISTORY Never Assessed REASON FOR VISIT PLAN OF CARE VITAL SIGNS MEDICATIONS Unknown [...] breast Surgical History x 3 Hospitalization History [facility] Hospitalization History lt breast surgery(cancer)
--- OUTSIDE RECORDS SUMMARY | 2019-05-02 19:46 | XMS REPORT ---
Author Author Shannon MCCORMACK Organization [facility] Address [address] [place] [address] Care Team Providers Care Stand Grinder Name Role Phone LAMBERTO MCCORMACK Unavailable PROBLEMS Type Condition ICD9-CM Code [id number] Code Onset Dates Condition S tatus SNOMED Code Problem Panic disorder F41.0 Active 66328 1005 Problem Borderline personality disorder F60.3 Active 18449165 Problem Major depressive disorder, recurrent episode, moderate F33.1 Active 951973774 Problem IZABEL on CPAP G47.33 Active 79973361 Problem Open wound of right foot, initial encounter S91.30 1A Active [id number] Problem Spinal stenosis M48.00 Active 7610 7001 Problem Breast cancer C50.919 Active 992322 009 Problem Insomnia G47.00 Active 703151645 Problem Morbid (severe) obesity due to excess calories E66 .01 Active 548986858 Problem Hypothyroidism E03.9 Active 94495 008 Problem GERD (gastroesophageal reflux disease) K21.9 Active 109829303 Problem Osteoarthritis M19.90 Active 64171 5006 Problem Anxiety F41.9 Active 47620411 Problem Essential hypertension I10 Active 05321354 Problem Arthritis M19.90 Active 4837757 Problem Migraine G43.909 Active 95511275 Problem Diabetic polyneuropathy associated with type 2 d iabetes mellitus E11.42 Active 23886567 Problem Migraine with aura and without status migrainosu s, not intractable G43.109 Active 8498375 Problem DDD (degenerative disc disease), lumbar M51.36 Active 88930967 Problem Major depression F32.9 Active 370 555153 Problem BMI 45.0-49.9, adult Z68.42 Active 954674170 Problem Type 2 diabetes mellitus E11.9 Activ e 01563710 Problem Other chronic pain G89.29 Active 8 1033162 Problem Functional urinary incontinence R39.81 Active 071799418 Problem Mixed incontinence urge and stress N39.46 Active 451335313 Problem Body mass index (BMI) of 40.0-44.9 in adult Z68.41 Active 306534560 Problem Vitamin D deficiency E55.9 Active 91529819 ALLERGIES No Information ENCOUNTERS Encounter Location Date Diagnosis [facility] [address] [place] [address] Apr, [facility] [id number] [place] [address] Apr, [address] [place] [address] Mar, [address] [place] [address] Mar, [address] [place] [address] Mar, [address] [place] [address] 19 Mar, 2019 [facility] [id number] [place] [address] 18 Mar, 2019 [address] [place] [address] Mar, [address] [place] [address] 13 Mar, [address] [place] [address] 12 Mar, [address] [place] [address] 11 Mar, 2019 Depression, major, recurrent , moderate 296.32 [facility] [id number] [place] [address] 11 Mar, [address] [place] [address] 10 Mar, [address] [place] [address] Mar, [facility] [address] [id number] [place] [address] Mar, [facility] [address] [id number] [place] [address] Mar, [facility] [address] [id number] [place] [address] Feb, [address] [place] [address] Feb, Essential hypertension I10 ; Tachycardia R00.0 ; Family history of heart disease Z82.49 and Type 2 diabetes mellitus E11.9 [facility] [address] [id number] [place] [address] Feb, [address] [place] [address] Feb, [address] [place] [address] Feb, Type 2 diabetes mellitus E11 .9 [facility] [address] [place] [address] Feb, [facility] [address] [id number] [place] [address] Feb, [facility] [address] [place] [address] Feb, [facility] [address] [place] [address] Feb, [address] [place] [address] Feb, [facility] [place] [facility] [address] [place] [address] Feb, Acute otitis externa of left ear, unspecified type H60.502 [facility] [address] [place] [address] Feb, Screening mammogram, encount er for Z12.[address] [place] [address] Feb, [address] [place] [address] Feb, [address] [place] [address] Feb, [address] [place] [address] 09 Feb, 2019 DDD (degenerative disc disea se), lumbar M51.36 [facility] [address] [id number] [place] [address] 08 Feb, 2019 Borderline personality disorder F60.3 ; Major depressive disorder, recurrent episode, moderate F33.1 and Panic disorder F41.0 [address] [place] [address] 08 Feb, [address] [place] [address] Feb, [address] [place] [address] 07 Feb, 2019 Depression, major, recurrent , moderate 296.32 [address] [place] [address] 07 Feb, 2019 [facility] [address] [place] [id number] Feb, [facility] [address] [facility] [id number] 0 Feb, [address] [place] [address] Feb, Acute bronchitis due to Myco plasma pneumoniae J20.[address] [place] [address] 03 Feb, 2019 Low back pain M54.5 [facility] [address] [place] [address] 02 Feb, 2019 Pain in right hip M25.551 ; Pain in left hip M25.552 ; Other chronic pain G89.29 ; Vitamin D deficiency E55.9 ; Low back pain M54.5 ; Acute bronchitis due to Mycoplasma pneumoniae J20.0 and Type 2 diabetes mellitus E11.9 [facility] [place] [address] [place] [address] Jan, [facility] [address] [place] [address] Jan, [facility] [address] [place] [address] Jan, [address] [place] [address] Jan, [address] [place] [address] Jan, [address] [place] [address] Jan, [address] [place] [address] Jan, Depression, major, recurrent , moderate 296.32 [address] [place] [address] Dec, Non-intractable vomiting wit h nausea, unspecified vomiting type R11.2 [address] [place] [address] Dec, Encounter for immunization Z 23 [facility] [address] [place] [address] Dec, [address] [place] [address] Dec, [facility] [address] [facility] [id number] [address] [place] [address] Dec, Acute diffuse otitis externa of left ear H60.312 [facility] [address] [facility] [id number] [place] [address] Dec, Borderline personality disorder F60.3 ; Major depressive disorder, recurrent episode, moderate F33.1 and Panic disorder F41.0 [facility] [place] [address] [place] [address] Dec, Depression, major, recurrent , moderate 296.32 [facility] [address] [place] [address] Dec, Open wound of left great toe , initial encounter S91.102A ; Oral pain K13.79 ; Type 2 diabetes mellitus E11.9 and Depression, major, recurrent, moderate 296.32 [facility] [place] [address] [place] [address] Nov, [facility] [address] [place] [address] Nov, [facility] [address] [place] [address] Nov, [facility] [place] [facility] [address] [address] [place] [address] Nov, [facility] [address] [place] [address] Nov, [facility] [place] [address] [place] [address] Nov, [facility] [address] [place] [address] Nov, Acute pain of right wrist M2 5.531 ; Contusion of left knee, initial encounter S80.02XA ; Open wound of left great toe, initial encounter S91.102A and Fall, initial encounter W19.XXXA [facility] [address] [place] [address] Nov, Depression, major, recurrent , moderate 296.32 [facility] [address] [place] [address] Nov, Oral pain K13.79 ; Excessive cerumen in left ear canal H61.22 ; Impetigo L01.00 and Dyspnea R06.[address] [place] [address] Nov, [facility] [address] [facility] [id number] [address] [place] [address] Nov, Acute diffuse otitis externa of left ear H60.312 [facility] [address] [id number] [place] [address] Nov, Borderline personality disorder F60.3 ; Major depressive disorder, recurrent episode, moderate F33.1 and Panic disorder F41.[address] [place] [address] Oct, [address] [place] [address] Oct, [address] [place] [address] Oct, Depression, major, recurrent , moderate 296.32 [facility] [address] [place] [address] Oct, Acute swimmer's ear of left side H60.332 [facility] [address] [id number] [place] [address] Sep, Major depressive disorder, recurrent epi sode, moderate F33.1 ; Borderline personality disorder F60.3 and Panic disorder F41.0 [address] [place] [address] Sep, [address] [place] [address] Sep, [facility] [id number] [place] [address] Sep, [facility] [address] [id number] [place] [address] Sep, [facility] [address] [id number] [place] [address] Sep, [facility] [address] [place] [address] Sep, Depression, major, recurrent , moderate 296.32 [facility] [address] [id number] [place] [address] Sep, [address] [place] [address] Sep, [address] [place] [address] Aug, [address] [place] [address] Aug, [address] [place] [address] Aug, Depression, major, recurrent , moderate 296.32 [place] [address] [id number] [place] [address] Aug, Major depressive disorder, recurrent epi sode, moderate F33.1 ; Panic disorder F41.0 and Borderline personality disorder F60.3 [address] [place] [address] Aug, Anxiety F41.9 ; Type 2 diabe nadine mellitus E11.9 ; Mixed incontinence urge and stress N39.46 ; Screening mammogram, encounter for Z12.31 and Morbid obesity E66.01 [facility] [address] [place] [address] Aug, Type 2 diabetes mellitus E11 .[address] [place] [address] Aug, [address] [place] [address] Aug, Scalp cyst L72.9 and Morbid obesity E66.[address] [place] [address] Aug, [facility] [address] [id number] [place] [address] Jul, Major depressive disorder, recurrent epi sode, moderate F33.1 ; Panic disorder F41.0 and Borderline personality disorder F60.3 [facility] [place] [address] [place] [address] Jul, [facility] [place] [address] [place] [address] Jul, [facility] [place] [address] [place] [address] Jul, [facility] [place] [address] [place] [address] Jul, [facility] [place] [address] [place] [address] Jul, [facility] [place] [address] [place] [address] Jul, Depression, major, recurrent , moderate 296.32 [facility] [place] [address] [place] [address] June, Type 2 diabetes mellitus E11 .9 ; Morbid (severe) obesity due to excess calories E66.01 and Body mass index (BMI) of 40.0-44.9 in adult Z68.41 [facility] [place] [address] [place] [address] June, [facility] [place] [address] [place] [address] June, [facility] [place] [address] [place] [address] June, Type 2 diabetes mellitus E11 .9 [facility] [place] [address] [place] [address] June, Type 2 diabetes mellitus E11 .9 and Morbid obesity E66.01 [facility] [place] [address] [place] [address] June, [facility] [address] [place] [address] June, [facility] [place] [address] [place] [address] June, [facility] [place] [address] [place] [address] June, Morbid obesity E66.01 [facility] [place] [address] [place] [address] May, [facility] [place] [address] [place] [address] May, [facility] [place] [address] [place] [address] May, [facility] [address] [place] [address] May, Hypothyroidism E03.9 ; Type 2 diabetes mellitus E11.9 and Morbid obesity E66.01 [facility] [address] [place] [address] May, Morbid obesity E66.01 [facility] [address] [id number] [place] [address] May, Peripheral edema R60.9 [address] [address] [id number] [place] [address] May, Peripheral edema R60.9 ; Weight gain R63 .5 ; Shortness of breath R06.02 and Morbid obesity E66.01 [facility] [address] [facility] [place] [address] [place] [address] May, Pedal edema R60.0 and Morbid obesity E66.01 [facility] [place] [address] [place] [address] May, [facility] [place] [address] [place] [address] May, [facility] [place] [address] [place] [address] May, [facility] [address] [facility] [id number] [place] [address] Apr, Bilateral lower extremity ed maria del rosario R60.0 ; Morbid obesity E66.01 and Weight gain R63.5 [facility] [place] [address] [place] [address] Apr, [facility] [place] [address] [place] [address] Apr, [facility] [address] [place] [address] 15 Apr, 2018 Migraine with aura and witho ut status migrainosus, not intractable G43.109 [facility] [place] [address] [place] [address] Apr, [facility] [place] [address] [place] [address] Apr, [facility] [place] [address] [place] [address] Apr, [facility] [place] [address] [place] [address] Apr, [facility] [place] [address] [place] [address] Apr, [facility] [address] [place] [address] Apr, Type 2 diabetes mellitus E11 .9 ; Pain in right knee M25.561 ; Other chronic pain G89.29 ; Pain in right shoulder M25.511 ; Morbid obesity E66.01 and Diabetic polyneuropathy associated with type 2 diabetes mellitus E11.42 [facility] [address] [place] [address] 05 Apr, 2018 [facility] [address] [facility] [id number] [address] [place] [address] Apr, [facility] [address] [place] [address] Mar, Open wound of right foot, in itial encounter S91.301A and Morbid obesity E66.01 [facility] [address] [place] [address] 09 Mar, 2018 Dysuria R30.0 and Painful ur ination R30.9 [facility] [address] [place] [address] 07 Mar, 2018 Depression, major, recurrent , moderate 296.32 [address] [place] [address] Mar, [address] [place] [address] Mar, [place] [address] [address] Feb, Dental examination Z01.20 [place] [address] [address] Nov, [place] [address] [address] Nov, [place] [address] [address] 08 Mar, 2015 Major depressive disorder, recurrent epi sode, moderate F33.1 ; Panic disorder F41.0 and Borderline personality disorder F60.3 [place] [address] [address] Sep, Depression, major, recurrent, moderate 2 96.32 ; Agoraphobia with panic disorder 300.21 and Borderline personality disorder 301.83 [place] [address] [address] Aug, Depression, major, recurrent, moderate 2 96.32 ; Panic disorder without agoraphobia 300.01 and Borderline personality disorder 301.83 [place] [address] [address] Jul, Depression, major, recurrent, moderate 2 96.32 ; Agoraphobia with panic disorder 300.21 and Posttraumatic stress disorder 309.81 [facility] [address] [id number] [place] [address] 30 May, 2014 [facility] [address] [id number] [place] [address] 14 May, 2014 [facility] [id number] [place] [address] May, [facility] [id number] [place] [address] Apr, [facility] [id number] [place] [address] Apr, [facility] [id number] [place] [address] Apr, [facility] [id number] [place] [address] Apr, [facility] [id number] [place] [address] Mar, [facility] [id number] [place] [address] Mar, [facility] [id number] [place] [address] Mar, [facility] [id number] [place] [address] Mar, [facility] [id number] [place] [address] Feb, [facility] [id number] [place] [address] Feb, [facility] [id number] [place] [address] Jan, [facility] [id number] [place] [address] Jan, [facility] [id number] [place] [address] Jan, [facility] [address] [id number] [place] [address] Jan, [facility] [address] [id number] [place] [id number] Dec, [facility] [address] [facility] [id number] [place] [id number] Dec, [facility] [address] [id number] [place] [address] Dec, [facility] [address] [id number] [place] [address] Dec, [facility] [address] [id number] [place] [address] Dec, [facility] [address] [id number] [place] [address] Nov, [facility] [address] [id number] [place] [address] Nov, [facility] [address] [id number] [place] [address] Nov, [facility] [address] [id number] [place] [address] Nov, [facility] [address] [id number] [place] [address] Nov, [facility] [address] [id number] [place] [address] Nov, [facility] [address] [id number] [place] [address] Nov, [facility] [id number] [place] [address] Nov, [facility] [id number] [place] [address] Oct, [facility] [id number] [place] [address] Oct, [facility] [id number] [place] [address] Sep, [facility] [address] [id number] [place] [address] Sep, [facility] [address] [facility] [id number] [facility] [address] Sep, [facility] [address] [facility] [id number] [place] [address] Sep, [facility] [address] [facility] [id number] [facility] [place] [address] Sep, [facility] [address] [facility] [id number] [facility] [place] [address] Sep, [facility] [address] [facility] [id number] [place] [address] Jul, [facility] [address] [facility] [id number] [place] [address] Jul, [facility] [address] [facility] [id number] [place] [address] June, [facility] [address] [facility] [id number] [place] [address] June, [facility] [address] [facility] [id number] [place] [address] June, [facility] [address] [facility] [id number] [place] [address] June, [facility] [address] [facility] [id number] [place] [address] May, [facility] [address] [facility] [id number] [place] [address] May, [facility] [address] [facility] [id number] [place] [address] May, [facility] [address] [facility] [address] [id number] [place] [address] May, [facility] [address] [facility] [id number] [place] [address] Apr, [facility] [address] [facility] [id number] [place] [address] Apr, [facility] [address] [facility] [address] [id number] [place] [address] Mar, [facility] [address] [facility] [id number] [place] [address] Mar, [facility] [address] [id number] [place] [address] Feb, [facility] [address] [id number] [place] [address] Feb, [facility] [address] [facility] [id number] [place] [address] Feb, [facility] [address] [facility] [id number] [place] [address] Feb, [facility] [address] [facility] [id number] [place] [address] Dec, [facility] [address] [facility] [id number] [place] [address] Dec, [facility] [address] [facility] [id number] [place] [address] Dec, [facility] [address] [facility] [id number] [place] [address] Dec, [facility] [address] [facility] [id number] [place] [address] Nov, [facility] [address] [facility] [id number] [place] [address] Nov, [facility] [address] [facility] [id number] [place] [address] Nov, [facility] [address] [facility] [id number] [place] [address] 16 Nov, 2012 [facility] [address] [facility] [id number] [place] [address] 23 Oct, 2012 [facility] [address] [facility] [id number] [place] [address] 16 Oct, 2012 [facility] [address] [facility] [id number] [place] [address] Oct, [facility] [address] [facility] [id number] [place] [address] Oct, [facility] [address] [facility] [id number] [place] [address] Aug, [facility] [address] [facility] [id number] [place] [address] Aug, [facility] [address] [facility] [id number] [place] [address] Aug, [facility] [address] [facility] [id number] [place] [address] Aug, [facility] [address] [facility] [id number] [place] [address] Aug, [facility] [address] [facility] [id number] [place] [address] Jul, [facility] [address] [facility] [id number] [place] [address] June, [facility] [address] [facility] [id number] [place] [address] May, [facility] [address] [facility] [id number] [place] [address] Apr, [facility] [address] [facility] [id number] [place] [address] Mar, [facility] [address] [facility] [id number] [place] [address] Mar, [facility] [address] [facility] [id number] [place] [address] Jan, [facility] [address] [facility] [id number] [place] [address] Jan, [facility] [address] [facility] [id number] [place] [address] Jan, [facility] [address] [facility] [id number] [place] [address] Jan, [facility] [address] [facility] [id number] [place] [address] Jan, [facility] [address] [facility] [id number] [place] [address] Jan, [facility] [address] [facility] [id number] [place] [address] Jan, [facility] [address] [facility] [id number] [place] [address] Jan, [facility] [address] [facility] [id number] [place] [address] Jan, [facility] [address] [facility] [id number] [place] [address] Jan, [facility] [address] [facility] [id number] [place] [address] Dec, [facility] [address] [facility] [id number] [place] [address] Dec, [facility] [address] [facility] [id number] [place] [address] Dec, [facility] [address] [facility] [id number] [place] [address] Dec, [facility] [address] [facility] [id number] [place] [address] Dec, [facility] [address] [facility] [id number] [place] [address] Dec, [facility] [address] [facility] [id number] [place] [address] Nov, [facility] [address] [facility] [id number] [place] [address] 10 Nov, 2011 [facility] [address] [facility] [id number] [place] [address] 24 Oct, 2011 [facility] [address] [facility] [id number] [place] [address] 24 Oct, 2011 [facility] [address] [facility] [id number] [place] [address] Oct, [facility] [id number] [place] [address] Oct, [facility] [address] [facility] [id number] [place] [address] Sep, [facility] [address] [facility] [id number] [place] [address] Sep, [facility] [address] [facility] [id number] [place] [address] Aug, [facility] [address] [id number] [place] [address] Aug, [facility] [address] [facility] [id number] [place] [address] Aug, [facility] [address] [facility] [id number] [place] [address] Aug, [facility] [address] [facility] [id number] [place] [address] Aug, [facility] [address] [facility] [id number] [place] [address] Aug, [facility] [address] [facility] [id number] [place] [address] Jul, [facility] [address] [facility] [id number] [place] [address] Jul, [facility] [address] [facility] [id number] [place] [address] June, [facility] [address] [facility] [id number] [place] [address] June, [facility] [address] [facility] [id number] [place] [address] May, [facility] [address] [facility] [id number] [place] [address] May, [facility] [address] [facility] [id number] [place] [address] May, [facility] [address] [facility] [id number] [place] [address] May, [facility] [address] [facility] [id number] [place] [address] Apr, [facility] [address] [facility] [id number] [place] [address] Apr, [facility] [address] [facility] [id number] [place] [address] Apr, [facility] [address] [facility] [id number] [place] [address] Apr, [facility] [address] [facility] [id number] [place] [address] Mar, [facility] [address] [facility] [id number] [place] [address] Mar, [facility] [id number] [place] [address] Feb, [facility] [address] [facility] [id number] [place] [address] Feb, [facility] [address] [facility] [id number] [place] [address] Feb, [facility] [address] [facility] [id number] [place] [address] Feb, [facility] [address] [facility] [id number] [place] [address] Feb, [facility] [address] [facility] [id number] [place] [address] Jan, [facility] [address] [facility] [id number] [place] [address] Dec, [facility] [address] [facility] [id number] [place] [address] Dec, [facility] [address] [facility] [id number] [place] [address] Dec, [facility] [address] [facility] [id number] [place] [address] Nov, [facility] [address] [facility] [id number] [place] [address] Nov, [facility] [address] [facility] [id number] [place] [address] Aug, [facility] [address] [facility] [id number] [place] [address] Jan, [facility] [id number] [place] [address] Dec, [facility] [address] [facility] [id number] [place] [address] Nov, [facility] [address] [facility] [id number] [place] [address] Jan, [facility] [address] [facility] [id number] [place] [address] Jan, IMMUNIZATIONS No Known Immunizations SOCIAL HISTORY Never Assessed REASON FOR VISIT PLAN OF CARE VITAL SIGNS MEDICATIONS Unknown Medications RESULTS No Results PROCEDURES Procedure Date Ordered Result Body Site PSYTX PT&/FAMILY 45 MINUTES June 30, 2013 INSTRUCTIONS MEDICATIONS ADMINISTERED No Known Medications MEDICAL [...] breast Surgical History x 3 Hospitalization History [facility] [address] [place] [address] for back surge ry Hospitalization History lt breast surgery(cancer)
--- OUTSIDE RECORDS SUMMARY | 2019-05-02 19:46 | XMS REPORT ---
Author Author Filipe, Shannon Doctor Organization [facility] Address Unknown Phone Unavailable Care Team Providers Care Commercial Singer Name Role Phone Migration, Doctor Unavailable Unavailable PROBLEMS Type Condition ICD9-CM Code [id number] Code Onset Dates Condition S tatus SNOMED Code Problem Panic disorder F41.0 Active 67163 1005 Problem Borderline personality disorder F60.3 Active 55418515 Problem Major depressive disorder, recurrent episode, moderate F33.1 Active 515170717 Problem IZABEL on CPAP G47.33 Active 34384786 Problem Open wound of right foot, initial encounter S91.30 1A Active [id number] Problem Spinal stenosis M48.00 Active 7610 7001 Problem Breast cancer C50.919 Active 750285 009 Problem Insomnia G47.00 Active 639726902 Problem Morbid (severe) obesity due to excess calories E66 .01 Active 026307537 Problem Hypothyroidism E03.9 Active 10917 008 Problem GERD (gastroesophageal reflux disease) K21.9 Active 777872034 Problem Osteoarthritis M19.90 Active 39205 5006 Problem Anxiety F41.9 Active 27918293 Problem Essential hypertension I10 Active 17532523 Problem Arthritis M19.90 Active 5250389 Problem Migraine G43.909 Active 57410922 Problem Diabetic polyneuropathy associated with type 2 d iabetes mellitus E11.42 Active 74465622 Problem Migraine with aura and without status migrainosu s, not intractable G43.109 Active 9260540 Problem DDD (degenerative disc disease), lumbar M51.36 Active 69060984 Problem Major depression F32.9 Active 370 349403 Problem BMI 45.0-49.9, adult Z68.42 Active 478137099 Problem Type 2 diabetes mellitus E11.9 Activ e 28333318 Problem Other chronic pain G89.29 Active 8 9688409 Problem Functional urinary incontinence R39.81 Active 641762888 Problem Mixed incontinence urge and stress N39.46 Active 785782431 Problem Body mass index (BMI) of 40.0-44.9 in adult Z68.41 Active 579666679 Problem Vitamin D deficiency E55.9 Active 27018959 ALLERGIES No Information ENCOUNTERS Encounter Location Date Diagnosis [facility] [address] [place] [address] Apr, [facility] [address] [id number] [place] [address] Apr, [facility] [address] [place] [address] Mar, [address] [place] [address] Mar, [address] [place] [address] Mar, [address] [place] [address] Mar, [address] [place] [address] Mar, [address] [place] [address] Mar, [facility] [address] [id number] [place] [address] 18 Mar, 2019 [address] [place] [address] 13 Mar, 2019 [facility] [address] [place] [address] 12 Mar, [address] [place] [address] Mar, Depression, major, recurrent , moderate 296.32 [facility] [address] [id number] [place] [address] 11 Mar, [address] [place] [address] 10 Mar, [address] [place] [address] Mar, [facility] [address] [id number] [place] [address] Mar, [facility] [address] [id number] [place] [address] Mar, [facility] [address] [id number] [place] [address] Feb, [address] [place] [address] Feb, Essential hypertension I10 ; Tachycardia R00.0 ; Family history of heart disease Z82.49 and Type 2 diabetes mellitus E11.9 [facility] [address] [id number] [place] [address] Feb, [facility] [address] [place] [address] Feb, [facility] [address] [place] [address] Feb, Type 2 diabetes mellitus E11 .9 [facility] [address] [place] [address] Feb, [facility] [address] [id number] [place] [address] Feb, [facility] [place] [address] [place] [address] Feb, [facility] [address] [place] [address] Feb, [address] [place] [address] Feb, [facility] [place] [facility] [address] [place] [address] Feb, Acute otitis externa of left ear, unspecified type H60.502 [facility] [address] [place] [address] Feb, Screening mammogram, encount er for Z12.31 [facility] [place] [address] [place] [address] Feb, [address] [place] [address] Feb, [address] [place] [address] Feb, [address] [place] [address] 09 Feb, 2019 DDD (degenerative disc disea se), lumbar M51.36 [facility] [address] [id number] [place] [address] 08 Feb, 2019 Borderline personality disorder F60.3 ; Major depressive disorder, recurrent episode, moderate F33.1 and Panic disorder F41.0 [facility] [address] [place] [address] 08 Feb, [address] [place] [address] Feb, [address] [place] [address] 07 Feb, 2019 Depression, major, recurrent , moderate 296.[address] [place] [address] 07 Feb, 2019 [facility] [address] [place] [id number] Feb, [facility] [address] [place] [id number] 0 Feb, [facility] [address] [place] [address] Feb, Acute bronchitis due to Myco plasma pneumoniae J20.0 [facility] [address] [place] [address] Feb, Low back pain M54.5 [facility] [address] [place] [address] 02 Feb, 2019 Pain in right hip M25.551 ; Pain in left hip M25.552 ; Other chronic pain G89.29 ; Vitamin D deficiency E55.9 ; Low back pain M54.5 ; Acute bronchitis due to Mycoplasma pneumoniae J20.0 and Type 2 diabetes mellitus E11.9 [facility] [place] [address] [place] [address] Jan, [facility] [address] [place] [address] Jan, [facility] [address] [place] [address] Jan, [facility] [address] [place] [address] Jan, [facility] [address] [place] [address] Jan, [facility] [place] [address] [place] [address] Jan, [facility] [address] [place] [address] Jan, Depression, major, recurrent , moderate 296.32 [address] [place] [address] Dec, Non-intractable vomiting wit h nausea, unspecified vomiting type R11.2 [facility] [place] [address] [place] [address] Dec, Encounter for immunization Z 23 [facility] [address] [place] [address] Dec, [address] [place] [address] Dec, [facility] [address] [facility] [id number] [address] [place] [address] Dec, Acute diffuse otitis externa of left ear H60.312 [facility] [address] [facility] [id number] [place] [address] Dec, Borderline personality disorder F60.3 ; Major depressive disorder, recurrent episode, moderate F33.1 and Panic disorder F41.0 [facility] [address] [place] [address] Dec, Depression, major, recurrent , moderate 296.32 [facility] [address] [place] [address] Dec, Open wound of left great toe , initial encounter S91.102A ; Oral pain K13.79 ; Type 2 diabetes mellitus E11.9 and Depression, major, recurrent, moderate 296.32 [facility] [place] [address] [place] [address] Nov, [facility] [address] [place] [address] Nov, [facility] [address] [place] [address] Nov, [facility] [address] [place] [address] Nov, [facility] [place] [address] [place] [address] Nov, [facility] [address] [place] [address] Nov, [facility] [address] [place] [address] Nov, Acute pain of right wrist M2 5.531 ; Contusion of left knee, initial encounter S80.02XA ; Open wound of left great toe, initial encounter S91.102A and Fall, initial encounter W19.XXXA [facility] [address] [place] [address] Nov, Depression, major, recurrent , moderate 296.32 [facility] [address] [place] [address] Nov, Oral pain K13.79 ; Excessive cerumen in left ear canal H61.22 ; Impetigo L01.00 and Dyspnea R06.00 [facility] [address] [place] [address] Nov, [facility] [address] [facility] [id number] [address] [place] [address] Nov, Acute diffuse otitis externa of left ear H60.312 [facility] [address] [id number] [place] [address] Nov, Borderline personality disorder F60.3 ; Major depressive disorder, recurrent episode, moderate F33.1 and Panic disorder F41.[address] [place] [address] Oct, [address] [place] [address] Oct, [address] [place] [address] Oct, Depression, major, recurrent , moderate 296.32 [facility] [address] [place] [address] Oct, Acute swimmer's ear of left side H60.332 [facility] [address] [id number] [place] [address] Sep, Major depressive disorder, recurrent epi sode, moderate F33.1 ; Borderline personality disorder F60.3 and Panic disorder F41.[address] [place] [address] Sep, [address] [place] [address] Sep, [facility] [address] [id number] [place] [address] Sep, [facility] [address] [id number] [place] [address] Sep, [facility] [address] [id number] [place] [address] Sep, [address] [place] [address] Sep, Depression, major, recurrent , moderate 296.32 [facility] [address] [id number] [place] [address] Sep, [address] [place] [address] Sep, [address] [place] [address] Aug, [address] [place] [address] Aug, [address] [place] [address] Aug, Depression, major, recurrent , moderate 296.32 [place] [address] [id number] [place] [address] Aug, Major depressive disorder, recurrent epi sode, moderate F33.1 ; Panic disorder F41.0 and Borderline personality disorder F60.3 [address] [place] [address] Aug, Anxiety F41.9 ; Type 2 diabe nadine mellitus E11.9 ; Mixed incontinence urge and stress N39.46 ; Screening mammogram, encounter for Z12.31 and Morbid obesity E66.01 [facility] [address] [place] [address] Aug, Type 2 diabetes mellitus E11 .9 [address] [place] [address] Aug, [address] [place] [address] Aug, Scalp cyst L72.9 and Morbid obesity E66.[address] [place] [address] Aug, [facility] [address] [id number] [place] [address] Jul, Major depressive disorder, recurrent epi sode, moderate F33.1 ; Panic disorder F41.0 and Borderline personality disorder F60.3 [facility] [place] [address] [place] [address] Jul, [facility] [address] [place] [address] Jul, [address] [place] [address] Jul, [address] [place] [address] Jul, [address] [place] [address] Jul, [address] [place] [address] Jul, Depression, major, recurrent , moderate 296.32 [facility] [address] [place] [address] June, Type 2 diabetes mellitus E11 .9 ; Morbid (severe) obesity due to excess calories E66.01 and Body mass index (BMI) of 40.0-44.9 in adult Z68.41 [facility] [place] [address] [place] [address] June, [facility] [address] [place] [address] June, [facility] [address] [place] [address] June, Type 2 diabetes mellitus E11 .9 [address] [place] [address] June, Type 2 diabetes mellitus E11 .9 and Morbid obesity E66.01 [facility] [address] [place] [address] June, [address] [place] [address] June, [facility] [place] [address] [place] [address] June, [facility] [place] [address] [place] [address] June, Morbid obesity E66.01 [facility] [place] [address] [place] [address] May, [facility] [place] [address] [place] [address] May, [facility] [place] [address] [place] [address] May, [facility] [address] [place] [address] May, Hypothyroidism E03.9 ; Type 2 diabetes mellitus E11.9 and Morbid obesity E66.01 [facility] [address] [place] [address] May, Morbid obesity E66.01 [facility] [address] [id number] [place] [address] May, Peripheral edema R60.9 [place] [address] [id number] [place] [address] May, Peripheral edema R60.9 ; Weight gain R63 .5 ; Shortness of breath R06.02 and Morbid obesity E66.01 [facility] [place] [facility] [address] [facility] [address] [place] [address] May, Pedal edema R60.0 and Morbid obesity E66.01 [facility] [place] [address] [place] [address] May, [facility] [place] [address] [place] [address] May, [facility] [place] [address] [place] [address] May, [facility] [address] [facility] [id number] [address] [place] [address] Apr, Bilateral lower extremity ed maria del rosario R60.0 ; Morbid obesity E66.01 and Weight gain R63.5 [facility] [address] [place] [address] Apr, [facility] [address] [place] [address] Apr, [facility] [address] [place] [address] 15 Apr, 2018 Migraine with aura and witho ut status migrainosus, not intractable G43.109 [facility] [address] [place] [address] Apr, [facility] [address] [place] [address] Apr, [facility] [address] [place] [address] Apr, [facility] [place] [address] [place] [address] Apr, [facility] [address] [place] [address] Apr, [facility] [place] [address] [place] [address] Apr, Type 2 diabetes mellitus E11 .9 ; Pain in right knee M25.561 ; Other chronic pain G89.29 ; Pain in right shoulder M25.511 ; Morbid obesity E66.01 and Diabetic polyneuropathy associated with type 2 diabetes mellitus E11.42 [facility] [place] [address] [place] [address] 05 Apr, 2018 [facility] [address] [facility] [id number] [address] [place] [address] Apr, [facility] [address] [place] [address] Mar, Open wound of right foot, in itial encounter S91.301A and Morbid obesity E66.01 [facility] [address] [place] [address] 09 Mar, 2018 Dysuria R30.0 and Painful ur ination R30.9 [facility] [address] [place] [address] 07 Mar, 2018 Depression, major, recurrent , moderate 296.32 [facility] [address] [place] [address] Mar, [facility] [place] [address] [place] [address] Mar, [place] [address] [address] Feb, Dental examination Z01.20 [place] [address] [address] Nov, [place] [address] [address] Nov, [address] [address] 08 Mar, 2015 Major depressive disorder, recurrent epi sode, moderate F33.1 ; Panic disorder F41.0 and Borderline personality disorder F60.3 [place] [address] [address] Sep, Depression, major, recurrent, moderate 2 96.32 ; Agoraphobia with panic disorder 300.21 and Borderline personality disorder 301.83 [place] [address] [address] Aug, Depression, major, recurrent, moderate 2 96.32 ; Panic disorder without agoraphobia 300.01 and Borderline personality disorder 301.83 [place] [address] [address] Jul, Depression, major, recurrent, moderate 2 96.32 ; Agoraphobia with panic disorder 300.21 and Posttraumatic stress disorder 309.81 [facility] [id number] [place] [address] 30 May, 2014 [facility] [id number] [place] [address] 14 May, 2014 [facility] [id number] [place] [address] May, [facility] [id number] [place] [address] Apr, [facility] [id number] [place] [address] Apr, [facility] [id number] [place] [address] Apr, [facility] [id number] [place] [address] Apr, [facility] [id number] [place] [address] Mar, [facility] [id number] [place] [address] Mar, [facility] [id number] [place] [address] Mar, [facility] [id number] [place] [address] Mar, [facility] [id number] [place] [address] Feb, [facility] [id number] [place] [address] Feb, [facility] [id number] [place] [address] Jan, [facility] [id number] [place] [address] Jan, [facility] [id number] [place] [address] Jan, [facility] [address] [id number] [place] [address] Jan, [facility] [address] [id number] [place] [id number] Dec, [facility] [address] [facility] [id number] [place] [id number] Dec, [facility] [address] [id number] [place] [address] Dec, [facility] [address] [id number] [place] [address] Dec, [facility] [address] [id number] [place] [address] Dec, [facility] [address] [id number] [place] [address] Nov, [facility] [address] [id number] [place] [address] Nov, [facility] [address] [id number] [place] [address] Nov, [facility] [address] [id number] [place] [address] Nov, [facility] [address] [id number] [place] [address] Nov, [facility] [address] [id number] [place] [address] Nov, [facility] [address] [id number] [place] [address] Nov, [facility] [address] [id number] [place] [address] Nov, [facility] [address] [id number] [place] [address] Oct, [facility] [place] [facility] [address] [id number] [place] [address] Oct, [facility] [place] [facility] [address] [id number] [place] [address] Sep, [facility] [place] [facility] [address] [id number] [place] [address] Sep, [facility] [place] [facility] [address] [facility] [id number] [place] [address] Sep, [facility] [place] [facility] [address] [facility] [id number] [place] [address] Sep, [facility] [place] [facility] [address] [id number] [place] [address] Sep, [facility] [place] [facility] [address] [facility] [id number] [place] [address] Sep, [facility] [place] [facility] [address] [facility] [id number] [place] [address] Jul, [facility] [place] [facility] [address] [id number] [place] [address] Jul, [facility] [place] [facility] [address] [id number] [place] [address] June, [facility] [place] [facility] [address] [facility] [id number] [place] [address] June, [facility] [place] [facility] [address] [id number] [place] [address] June, [facility] [place] [facility] [address] [id number] [place] [address] June, [facility] [place] [facility] [address] [id number] [place] [address] May, [facility] [place] [facility] [address] [facility] [id number] [place] [address] May, [facility] [place] [facility] [address] [id number] [place] [address] May, [facility] [place] [facility] [address] [facility] [id number] [place] [address] May, [facility] [place] [facility] [address] [id number] [place] [address] Apr, [facility] [place] [facility] [address] [id number] [place] [address] Apr, [facility] [place] [facility] [address] [id number] [place] [address] Mar, [facility] [place] [facility] [address] [id number] [place] [address] Mar, [facility] [place] [facility] [address] [id number] [place] [address] Feb, [facility] [place] [facility] [address] [id number] [place] [address] Feb, [facility] [place] [facility] [address] [id number] [place] [address] Feb, [facility] [address] [id number] [place] [address] Feb, [facility] [address] [id number] [place] [address] Dec, [facility] [address] [id number] [place] [address] Dec, [facility] [address] [id number] [place] [address] Dec, [facility] [address] [id number] [place] [address] Dec, [facility] [address] [id number] [place] [address] Nov, [facility] [address] [id number] [place] [address] Nov, [facility] [address] [id number] [place] [address] 16 Nov, 2012 [facility] [id number] [place] [address] 16 Nov, 2012 [facility] [address] [id number] [place] [address] 23 Oct, 2012 [facility] [address] [id number] [place] [address] 16 Oct, 2012 [facility] [address] [id number] [place] [address] 10 Oct, 2012 [facility] [address] [id number] [place] [address] Oct, [facility] [address] [id number] [place] [address] Aug, [facility] [address] [id number] [place] [address] Aug, [facility] [address] [id number] [place] [address] Aug, [facility] [address] [id number] [place] [address] Aug, [facility] [address] [id number] [place] [address] Aug, [facility] [address] [id number] [place] [address] Jul, [facility] [address] [id number] [place] [address] June, [facility] [address] [id number] [place] [address] May, [facility] [address] [id number] [place] [address] Apr, [facility] [address] [id number] [place] [address] Mar, [facility] [address] [id number] [place] [address] Mar, [facility] [address] [id number] [place] [address] Jan, [facility] [address] [id number] [place] [address] Jan, [facility] [address] [id number] [place] [address] Jan, [facility] [address] [id number] [place] [address] Jan, [facility] [address] [id number] [place] [address] Jan, [facility] [address] [id number] [place] [address] Jan, [facility] [address] [id number] [place] [address] Jan, [facility] [address] [id number] [place] [address] Jan, [facility] [address] [id number] [place] [address] Jan, [facility] [address] [id number] [place] [address] Jan, [facility] [address] [id number] [place] [address] Dec, [facility] [address] [id number] [place] [address] Dec, [facility] [address] [id number] [place] [address] Dec, [facility] [address] [id number] [place] [address] Dec, [facility] [address] [id number] [place] [address] Dec, [facility] [address] [id number] [place] [address] Dec, [facility] [address] [id number] [place] [address] Nov, [facility] [address] [id number] [place] [address] 10 Nov, 2011 [facility] [address] [id number] [place] [address] 24 Oct, 2011 [facility] [address] [id number] [place] [address] 24 Oct, 2011 [facility] [address] [facility] [id number] [place] [address] Oct, [facility] [id number] [place] [address] Oct, [facility] [address] [id number] [place] [address] Sep, [facility] [address] [id number] [place] [address] Sep, [facility] [address] [id number] [place] [address] Aug, [facility] [address] [id number] [place] [address] Aug, [facility] [address] [id number] [place] [address] Aug, [facility] [address] [id number] [place] [address] Aug, [facility] [address] [id number] [place] [address] Aug, [facility] [address] [id number] [place] [address] Aug, [facility] [address] [id number] [place] [address] Jul, [facility] [address] [id number] [place] [address] Jul, [facility] [address] [id number] [place] [address] June, [facility] [address] [id number] [place] [address] June, [facility] [address] [id number] [place] [address] May, [facility] [address] [id number] [place] [address] May, [facility] [address] [id number] [place] [address] May, [facility] [address] [id number] [place] [address] May, [facility] [address] [id number] [place] [address] Apr, [facility] [address] [id number] [place] [address] 15 Apr, 2011 [facility] [address] [id number] [place] [address] Apr, [facility] [address] [id number] [place] [address] Apr, [facility] [address] [id number] [place] [address] Mar, [facility] [address] [id number] [place] [address] Mar, [facility] [id number] [place] [address] Feb, [facility] [address] [id number] [place] [address] Feb, [facility] [id number] [place] [address] Feb, [facility] [address] [id number] [place] [address] Feb, [facility] [id number] [place] [address] Feb, [facility] [address] [id number] [place] [address] Jan, [facility] [address] [id number] [place] [address] Dec, [facility] [address] [id number] [place] [address] Dec, [facility] [address] [id number] [place] [address] Dec, [facility] [address] [id number] [place] [address] 28 Nov, 2010 [facility] [address] [id number] [place] [address] Nov, [facility] [address] [id number] [place] [address] Aug, [facility] [address] [id number] [place] [address] Jan, [facility] [id number] [place] [address] Dec, [facility] [address] [id number] [place] [address] Nov, [facility] [address] [id number] [place] [address] Jan, [facility] [address] [id number] [place] [address] Jan, IMMUNIZATIONS No Known Immunizations SOCIAL HISTORY [...] breast Surgical History x 3 Hospitalization History [facility] [address] [place] [address] for back surge ry Hospitalization History lt breast surgery(cancer)
--- OUTSIDE RECORDS SUMMARY | 2019-05-02 19:46 | XMS REPORT ---
Author Author Shannon [facility] [place] [facility] Address [address] [place] [address] Care Team Providers Care Shove Up Name Role Phone AARON VARELAWELL Unavailable PROBLEMS Type Condition ICD9-CM Code [id number] Code Onset Dates Condition S tatus SNOMED Code Problem Panic disorder F41.0 Active 86101 1005 Problem Borderline personality disorder F60.3 Active 45943705 Problem Major depressive disorder, recurrent episode, moderate F33.1 Active 162691507 Problem IZABEL on CPAP G47.33 Active 77676074 Problem Open wound of right foot, initial encounter S91.30 1A Active [id number] Problem Spinal stenosis M48.00 Active 7610 7001 Problem Breast cancer C50.919 Active 953650 009 Problem Insomnia G47.00 Active 544913179 Problem Morbid (severe) obesity due to excess calories E66 .01 Active 730997331 Problem Hypothyroidism E03.9 Active 16076 008 Problem GERD (gastroesophageal reflux disease) K21.9 Active 908568924 Problem Osteoarthritis M19.90 Active 21128 5006 Problem Anxiety F41.9 Active 72985257 Problem Essential hypertension I10 Active 84971383 Problem Arthritis M19.90 Active 0061357 Problem Migraine G43.909 Active 66239274 Problem Diabetic polyneuropathy associated with type 2 d iabetes mellitus E11.42 Active 15110721 Problem Migraine with aura and without status migrainosu s, not intractable G43.109 Active 1124257 Problem DDD (degenerative disc disease), lumbar M51.36 Active 08567122 Problem Major depression F32.9 Active 370 391207 Problem BMI 45.0-49.9, adult Z68.42 Active 245789786 Problem Type 2 diabetes mellitus E11.9 Activ e 16278632 Problem Other chronic pain G89.29 Active 8 2205037 Problem Functional urinary incontinence R39.81 Active 607171198 Problem Mixed incontinence urge and stress N39.46 Active 340831295 Problem Body mass index (BMI) of 40.0-44.9 in adult Z68.41 Active 496574390 Problem Vitamin D deficiency E55.9 Active 41091712 ALLERGIES No Information ENCOUNTERS Encounter Location Date Diagnosis [address] [place] [address] Apr, [facility] [id number] [place] [address] Apr, [address] [place] [address] Mar, [address] [place] [address] Mar, [address] [place] [address] Mar, Depression, major, recurrent , moderate 296.[address] [place] [id number] [place] [address] Mar, [address] [place] [address] Mar, [address] [place] [address] Mar, [place] [id number] [place] [address] Mar, [place] [id number] [place] [address] Mar, [place] [id number] [place] [address] Feb, [address] [place] [address] Feb, Essential hypertension I10 ; Tachycardia R00.0 ; Family history of heart disease Z82.49 and Type 2 diabetes mellitus E11.9 [address] [id number] [place] [address] Feb, [address] [place] [address] Feb, [address] [place] [address] Feb, Type 2 diabetes mellitus E11 .[address] [place] [address] Feb, [facility] [address] [id number] [place] [address] Feb, [address] [place] [address] Feb, [address] [place] [address] Feb, [address] [place] [address] Feb, [facility] [address] [facility] [address] [place] [address] Feb, Acute otitis externa of left ear, unspecified type H60.[address] [place] [address] Feb, Screening mammogram, encount er for Z12.[address] [place] [address] Feb, [address] [place] [address] Feb, [address] [place] [address] Feb, [address] [place] [address] Feb, DDD (degenerative disc disea se), lumbar M51.36 [facility] [address] [id number] [place] [address] 08 Feb, 2019 Borderline personality disorder F60.3 ; Major depressive disorder, recurrent episode, moderate F33.1 and Panic disorder F41.0 [facility] [address] [place] [address] [address], [address] [facility] [address] [place] [address] [address], [address] [facility] [address] [place] [address] 07 Feb, 2019 Depression, major, recurrent , moderate 296.32 [facility] [address] [place] [address] 07 Feb, 2019 [facility] [address] [place] [id number] Feb, [facility] [address] [place] [id number] 0 Feb, [facility] [address] [place] [address] Feb, Acute bronchitis due to Myco plasma pneumoniae J20.0 [facility] [address] [place] [address] Feb, Low back pain M54.5 [facility] [address] [place] [address] Feb, Pain in right hip M25.551 ; Pain in left hip M25.552 ; Other chronic pain G89.29 ; Vitamin D deficiency E55.9 ; Low back pain M54.5 ; Acute bronchitis due to Mycoplasma pneumoniae J20.0 and Type [address] [facility] [address] [place] [address] Jan, [facility] [address] [place] [address] Jan, [facility] [address] [place] [address] Jan, [facility] [address] [place] [address] Jan, [facility] [address] [place] [address] Jan, [facility] [address] [place] [address] Jan, [place] [address] [place] [address] Jan, Depression, major, recurrent , moderate [address] [place] [address] Dec, Non-intractable vomiting wit h nausea, unspecified vomiting type R11.2 [place] [address] [place] [address] Dec, Encounter for immunization Z 23 [address] [place] [address] Dec, [address] [place] [address] Dec, [facility] [address] [facility] [id number] [address] [place] [address] Dec, Acute diffuse otitis externa of left ear H60.312 [facility] [address] [id number] [place] [address] Dec, Borderline personality disorder F60.3 ; Major depressive disorder, recurrent episode, moderate F33.1 and Panic disorder F41.0 [place] [address] [place] [address] Dec, Depression, major, recurrent , moderate 296.[address] [place] [address] Dec, Open wound of left great toe , initial encounter S91.102A ; Oral pain K13.79 ; Type 2 diabetes mellitus E11.9 and Depression, major, recurrent, moderate 296.32 [facility] [address] [place] [address] Nov, [place] [address] [place] [address] Nov, [facility] [address] [place] [address] Nov, [facility] [address] [place] [address] Nov, [facility] [address] [place] [address] Nov, [address] [place] [address] Nov, [address] [place] [address] Nov, Acute pain of right wrist M2 5.531 ; Contusion of left knee, initial encounter S80.02XA ; Open wound of left great toe, initial encounter S91.102A and Fall, initial encounter W19.XXXA [address] [place] [address] Nov, Depression, major, recurrent , moderate 296.32 [facility] [address] [place] [address] Nov, Oral pain K13.79 ; Excessive cerumen in left ear canal H61.22 ; Impetigo L01.[address] [facility] [address] [place] [address] Nov, [facility] [address] [facility] [id number] [address] [place] [address] Nov, Acute diffuse otitis externa of left ear H60.312 [facility] [address] [facility] [id number] [place] [address] Nov, Borderline personality disorder F60.3 ; Major depressive disorder, recurrent episode, moderate F33.1 and Panic disorder F41.0 [facility] [address] [place] [address] Oct, [address] [place] [address] Oct, [facility] [address] [place] [address] Oct, Depression, major, recurrent , moderate 296.32 [facility] [address] [place] [address] Oct, Acute swimmer's ear of left side H60.332 [facility] [address] [id number] [place] [address] Sep, Major depressive disorder, recurrent epi sode, moderate F33.1 ; Borderline personality disorder F60.3 and Panic disorder F41.0 [facility] [address] [place] [address] Sep, [facility] [address] [place] [address] Sep, [facility] [id number] [place] [address] Sep, [facility] [address] [id number] [place] [address] Sep, [facility] [id number] [place] [address] Sep, [facility] [address] [place] [address] Sep, Depression, major, recurrent , moderate 296.32 [facility] [address] [id number] [place] [address] Sep, [facility] [address] [place] [address] Sep, [facility] [address] [place] [address] Aug, [facility] [address] [place] [address] Aug, [facility] [address] [place] [address] Aug, Depression, major, recurrent , moderate 296.32 [facility] [address] [id number] [place] [address] Aug, Major depressive disorder, recurrent epi sode, moderate F33.1 ; Panic disorder F41.0 and Borderline personality disorder F60.3 [facility] [address] [place] [address] Aug, Anxiety F41.9 ; Type 2 diabe nadine mellitus E11.9 ; Mixed incontinence urge and stress N39.46 ; Screening mammogram, encounter for Z12.31 and Morbid obesity E66.[address] [place] [address] Aug, Type 2 diabetes mellitus E11 .[address] [place] [address] Aug, [address] [place] [address] Aug, Scalp cyst L72.9 and Morbid obesity E66.01 [facility] [address] [place] [address] Aug, [facility] [address] [id number] [place] [address] Jul, Major depressive disorder, recurrent epi sode, moderate F33.1 ; Panic disorder F41.0 and Borderline personality disorder F60.3 [facility] [address] [place] [address] Jul, [address] [place] [address] Jul, [address] [place] [address] Jul, [address] [place] [address] Jul, [facility] [address] [place] [address] Jul, [facility] [address] [place] [address] Jul, Depression, major, recurrent , moderate 296.32 [facility] [place] [address] [place] [address] June, Type 2 diabetes mellitus E11 .9 ; Morbid (severe) obesity due to excess calories E66.01 and Body mass index (BMI) of 40.0-44.9 in adult Z68.41 [facility] [place] [address] [facility] [place] [address] June, [facility] [place] [address] [place] [address] June, [facility] [place] [address] [place] [address] June, Type 2 diabetes mellitus E11 .9 [facility] [place] [address] [place] [address] June, Type 2 diabetes mellitus E11 .9 and Morbid obesity E66.01 [facility] [place] [address] [place] [address] June, [facility] [address] [place] [address] June, [facility] [address] [place] [address] June, [facility] [address] [place] [address] June, Morbid obesity E66.01 [facility] [address] [place] [address] May, [facility] [address] [place] [address] May, [facility] [address] [place] [address] May, [facility] [address] [place] [address] May, Hypothyroidism E03.9 ; Type 2 diabetes mellitus E11.9 and Morbid obesity E66.[address] [place] [address] May, Morbid obesity E66.01 [facility] [address] [id number] [place] [address] May, Peripheral edema R60.9 [facility] [address] [id number] [place] [address] May, Peripheral edema R60.9 ; Weight gain R63 .5 ; Shortness of breath R06.02 and Morbid obesity E66.01 [facility] [address] [place] [address] May, Pedal edema R60.0 and Morbid obesity E66.[address] [place] [address] May, [address] [place] [address] May, [address] [place] [address] May, [facility] [address] [facility] [id number] [address] [place] [address] Apr, Bilateral lower extremity ed maria del rosario R60.0 ; Morbid obesity E66.01 and Weight gain R63.[address] [place] [address] Apr, [address] [place] [address] Apr, [address] [place] [address] Apr, Migraine with aura and witho ut status migrainosus, not intractable G43.109 [address] [place] [address] Apr, [facility] [address] [address] Apr, [facility] [address] [place] [address] Apr, [facility] [address] [place] [address] Apr, [facility] [address] [place] [address] Apr, [facility] [address] [place] [address] Apr, Type 2 diabetes mellitus E11 .9 ; Pain in right knee M25.561 ; Other chronic pain G89.29 ; Pain in right shoulder M25.511 ; Morbid obesity E66.01 and Diabetic polyneuropathy associated with type 2 diabetes mellitus E11.42 [facility] [address] [place] [address] Apr, [facility] [address] [facility] [id number] [address] [place] [address] Apr, [facility] [address] [place] [address] Mar, Open wound of right foot, in itial encounter S91.301A and Morbid obesity E66.01 [facility] [address] [place] [address] Mar, Dysuria R30.0 and Painful ur ination R30.9 [facility] [address] [place] [address] Mar, Depression, major, recurrent , moderate 296.32 [facility] [address] [address] Mar, [facility] [address] [place] [address] Mar, [facility] [address] [address] 10 Feb, 2016 Dental examination Z01.20 [facility] [address] [address] Nov, [facility] [address] [address] Nov, [facility] [address] [address] 08 Mar, 2015 Major depressive disorder, recurrent epi sode, moderate F33.1 ; Panic disorder F41.0 and Borderline personality disorder F60.3 [place] [address] [address] Sep, Depression, major, recurrent, moderate 2 96.32 ; Agoraphobia with panic disorder 300.21 and Borderline personality disorder 301.83 [facility] [address] [place] [address] Aug, Depression, major, recurrent, moderate 2 96.32 ; Panic disorder without agoraphobia 300.01 and Borderline personality disorder 301.83 [facility] [address] [address] Jul, Depression, major, recurrent, moderate 2 96.32 ; Agoraphobia with panic disorder 300.21 and Posttraumatic stress disorder 309.81 [facility] [address] [address] 30 May, 2014 [facility] [address] [address] 14 May, 2014 [facility] [address] [address] 13 May, 2014 [facility] [address] [address] 10 Apr, 2014 [facility] [address] [address] Apr, [facility] [address] [address] Apr, [facility] [address] [id number] [place] [address] Apr, [facility] [address] [id number] [place] [address] Mar, [facility] [address] [id number] [place] [address] Mar, [facility] [address] [id number] [place] [address] Mar, [facility] [address] [id number] [place] [address] Mar, [facility] [address] [id number] [place] [address] Feb, [facility] [address] [id number] [place] [address] Feb, [facility] [id number] [place] [address] Jan, [facility] [address] [id number] [place] [address] Jan, [facility] [id number] [place] [address] Jan, [facility] [address] [id number] [place] [address] Jan, [facility] [id number] [place] [id number] Dec, [facility] [address] [id number] [place] [id number] Dec, [facility] [address] [id number] [place] [address] Dec, [facility] [id number] [place] [address] Dec, [facility] [address] [id number] [place] [address] Dec, [facility] [address] [id number] [place] [address] Nov, [facility] [address] [facility] [id number] [place] [address] Nov, [facility] [address] [facility] [id number] [place] [address] Nov, [facility] [address] [id number] [place] [address] Nov, [facility] [address] [facility] [id number] [place] [address] Nov, [facility] [address] [facility] [id number] [place] [address] Nov, [facility] [address] [facility] [id number] [place] [address] Nov, [facility] [address] [id number] [place] [address] Nov, [facility] [address] [id number] [place] [address] Oct, [facility] [address] [facility] [id number] [place] [address] Oct, [facility] [address] [id number] [place] [address] Sep, [facility] [address] [id number] [place] [address] Sep, [facility] [address] [id number] [place] [address] Sep, [facility] [address] [facility] [id number] [place] [address] Sep, [facility] [address] [id number] [place] [address] Sep, [facility] [address] [facility] [id number] [place] [address] Sep, [facility] [address] [id number] [place] [address] Jul, [facility] [address] [id number] [place] [address] Jul, [facility] [address] [id number] [place] [address] June, [facility] [address] [id number] [place] [address] June, [facility] [address] [id number] [place] [address] June, [facility] [address] [id number] [place] [address] June, [facility] [address] [id number] [place] [address] May, [facility] [address] [id number] [place] [address] May, [facility] [address] [id number] [place] [address] May, [facility] [address] [id number] [place] [address] May, [facility] [address] [id number] [place] [address] Apr, [facility] [address] [id number] [place] [address] Apr, [facility] [address] [id number] [place] [address] Mar, [facility] [address] [id number] [place] [address] Mar, [facility] [address] [id number] [place] [address] Feb, [facility] [address] [id number] [place] [address] Feb, [facility] [address] [id number] [place] [address] Feb, [facility] [address] [id number] [place] [address] Feb, [facility] [address] [id number] [place] [address] Dec, [facility] [address] [id number] [place] [address] Dec, [facility] [address] [id number] [place] [address] Dec, [facility] [address] [id number] [place] [address] Dec, [facility] [address] [facility] [id number] [place] [address] Nov, [facility] [address] [id number] [place] [address] Nov, [facility] [address] [id number] [place] [address] Nov, [facility] [address] [id number] [place] [address] Nov, [facility] [address] [id number] [place] [address] 23 Oct, 2012 [facility] [address] [id number] [place] [address] 16 Oct, 2012 [facility] [address] [id number] [place] [address] 10 Oct, 2012 [facility] [address] [id number] [place] [address] Oct, [facility] [address] [id number] [place] [address] Aug, [facility] [address] [id number] [place] [address] Aug, [facility] [address] [id number] [place] [address] Aug, [facility] [address] [id number] [place] [address] Aug, [facility] [address] [id number] [place] [address] Aug, [facility] [address] [id number] [place] [address] Jul, [facility] [address] [id number] [place] [address] June, [facility] [address] [id number] [place] [address] May, [facility] [address] [id number] [place] [address] Apr, [facility] [address] [id number] [place] [address] Mar, [facility] [address] [id number] [place] [address] Mar, [facility] [address] [id number] [place] [address] Jan, [facility] [address] [id number] [place] [address] Jan, [facility] [address] [id number] [place] [address] Jan, [facility] [address] [id number] [place] [address] Jan, [facility] [address] [id number] [place] [address] Jan, [facility] [address] [id number] [place] [address] Jan, [facility] [address] [id number] [place] [address] Jan, [facility] [address] [id number] [place] [address] Jan, [facility] [address] [id number] [place] [address] Jan, [facility] [address] [id number] [place] [address] Jan, [facility] [address] [id number] [place] [address] Dec, [facility] [address] [id number] [place] [address] Dec, [facility] [address] [id number] [place] [address] Dec, [facility] [address] [id number] [place] [address] Dec, [facility] [address] [id number] [place] [address] Dec, [facility] [address] [id number] [place] [address] Dec, [facility] [address] [id number] [place] [address] Nov, [facility] [address] [id number] [place] [address] Nov, [facility] [address] [id number] [place] [address] 24 Oct, 2011 [facility] [address] [id number] [place] [address] Oct, [facility] [address] [id number] [place] [address] Oct, [facility] [address] [id number] [place] [address] Oct, [facility] [address] [id number] [place] [address] Sep, [facility] [address] [id number] [place] [address] Sep, [facility] [address] [id number] [place] [address] Aug, [facility] [address] [id number] [place] [address] Aug, [facility] [address] [id number] [place] [address] Aug, [facility] [address] [facility] [id number] [place] [address] Aug, [facility] [address] [id number] [place] [address] Aug, [facility] [address] [id number] [place] [address] Aug, [facility] [address] [id number] [place] [address] Jul, [facility] [address] [id number] [place] [address] Jul, [facility] [address] [id number] [place] [address] June, [facility] [address] [id number] [place] [address] June, [facility] [address] [id number] [place] [address] May, [facility] [address] [id number] [place] [address] May, [facility] [address] [id number] [place] [address] May, [facility] [address] [id number] [place] [address] May, [facility] [address] [id number] [place] [address] Apr, [facility] [address] [id number] [place] [address] Apr, [facility] [address] [id number] [place] [address] Apr, [facility] [address] [id number] [place] [address] Apr, [facility] [address] [id number] [place] [address] Mar, [facility] [address] [id number] [place] [address] Mar, [facility] [address] [id number] [place] [address] Feb, [facility] [address] [id number] [place] [address] Feb, [facility] [id number] [place] [address] Feb, [facility] [address] [id number] [place] [address] Feb, [facility] [address] [id number] [place] [address] Feb, [facility] [address] [id number] [place] [address] Jan, [facility] [id number] [place] [address] Dec, [facility] [id number] [place] [address] Dec, [facility] [address] [id number] [place] [address] Dec, [facility] [id number] [place] [address] Nov, [facility] [address] [id number] [place] [address] Nov, [facility] [address] [id number] [place] [address] Aug, [facility] [address] [id number] [place] [address] Jan, [facility] [id number] [place] [address] Dec, [facility] [address] [id number] [place] [address] Nov, [facility] [address] [id number] [place] [address] Jan, [facility] [address] [facility] [id number] [place] [address] Jan, IMMUNIZATIONS No Known Immunizations SOCIAL HISTORY Never Assessed REASON FOR VISIT Needs Referral PLAN OF CARE VITAL SIGNS MEDICATIONS Unknown [...] breast Surgical History x 3 Hospitalization History [facility] Hospitalization History lt breast surgery(cancer)
--- OUTSIDE RECORDS SUMMARY | 2019-05-02 19:47 | XMS REPORT ---
Author Author Shannon MCCORMACK Organization [facility] Address [address] [place] [address] Care Team Providers Care Internet Project Manager Name Role Phone LAMBERTO MCCORMACK Unavailable PROBLEMS Type Condition ICD9-CM Code DAI50-SY Code Onset Dates Condition S tatus SNOMED Code Problem Major depressive disorder, recurrent episode, moderate F33.1 Active 757841729 Problem Panic disorder F41.0 Active 23645 1005 Problem Open wound of right foot, initial encounter S91.30 1A Active [id number] Problem Borderline personality disorder F60.3 Active 22827051 Problem Breast cancer C50.919 Active 759017 009 Problem Essential hypertension I10 Active 49556424 Problem Morbid (severe) obesity due to excess calories E66 .01 Active 415827722 Problem Other chronic pain G89.29 Active 8 1123723 Problem GERD (gastroesophageal reflux disease) K21.9 Active 668834283 Problem Insomnia G47.00 Active 609260261 Problem Anxiety F41.9 Active 90429858 Problem Hypothyroidism E03.9 Active 56499 008 Problem Arthritis M19.90 Active 9554300 Problem Osteoarthritis M19.90 Active 68094 5006 Problem Spinal stenosis M48.00 Active 7610 7001 Problem Migraine G43.909 Active 56330630 Problem Diabetic polyneuropathy associated with type 2 d iabetes mellitus E11.42 Active 48844217 Problem Vitamin D deficiency E55.9 Active 20618397 Problem Type 2 diabetes mellitus E11.9 Activ e 62291432 Problem DDD (degenerative disc disease), lumbar M51.36 Active 88152502 Problem IZABEL on CPAP G47.33 Active 85788138 Problem Major depression F32.9 Active 370 565246 Problem Migraine with aura and without status migrainosu s, not intractable G43.109 Active 0058691 Problem Functional urinary incontinence R39.81 Active 125311442 Problem Mixed incontinence urge and stress N39.46 Active 359917617 Problem Body mass index (BMI) of 40.0-44.9 in adult Z68.41 Active 770688808 ALLERGIES No Information ENCOUNTERS Encounter Location Date Diagnosis [facility] [id number] [place] [address] 03 Mar, 2019 [address] [place] [address] Feb, [address] [place] [address] Feb, [address] [place] [address] Feb, [address] [address] 09 Feb, 2019 DDD (degenerative disc disea se), lumbar M51.36 [facility] [id number] [place] [address] 08 Feb, 2019 Borderline personality disorder F60.3 ; Major depressive disorder, recurrent episode, moderate F33.1 and Panic disorder F41.0 [address] [place] [address] 08 Feb, 2019 [address] [place] [address] Feb, [address] [place] [address] 07 Feb, 2019 Depression, major, recurrent , moderate 296.32 [address] [place] [address] 07 Feb, 2019 [facility] [address] [place] [id number] Feb, [facility] [address] [place] [id number] 0 Feb, [address] [place] [address] 03 Feb, 2019 Acute bronchitis due to Myco plasma pneumoniae J20.0 [address] [place] [address] Feb, Low back pain M54.5 [facility] [place] [address] [place] [address] Feb, Pain in right hip M25.551 ; Pain in left hip M25.552 ; Other chronic pain G89.29 ; Vitamin D deficiency E55.9 ; Low back pain M54.5 ; Acute bronchitis due to Mycoplasma pneumoniae J20.0 and Type 2 diabetes mellitus E11.9 [facility] [place] [address] [place] [address] Jan, [facility] [place] [address] [place] [address] Jan, [facility] [place] [address] [place] [address] Jan, [facility] [place] [address] [place] [address] Jan, [facility] [place] [address] [place] [address] Jan, [facility] [place] [address] [place] [address] Jan, [facility] [place] [address] [place] [address] Jan, Depression, major, recurrent , moderate 296.32 [facility] [place] [address] [place] [address] Dec, Non-intractable vomiting wit h nausea, unspecified vomiting type R11.2 [facility] [place] [address] [place] [address] Dec, Encounter for immunization Z 23 [facility] [place] [address] [place] [address] Dec, [facility] [place] [address] [place] [address] Dec, [facility] [address] [facility] [id number] [address] [place] [address] Dec, Acute diffuse otitis externa of left ear H60.312 [facility] [address] [id number] [place] [address] Dec, Borderline personality disorder F60.3 ; Major depressive disorder, recurrent episode, moderate F33.1 and Panic disorder F41.0 [address] [place] [address] Dec, Depression, major, recurrent , moderate 296.32 [address] [place] [address] Dec, Open wound of left great toe , initial encounter S91.102A ; Oral pain K13.79 ; Type 2 diabetes mellitus E11.9 and Depression, major, recurrent, moderate 296.32 [address] [place] [address] Nov, [address] [place] [address] Nov, [address] [place] [address] Nov, [facility] [place] [facility] [address] [place] [address] Nov, [address] [place] [address] Nov, [address] [place] [address] Nov, [address] [place] [address] Nov, Acute pain of right wrist M2 5.531 ; Contusion of left knee, initial encounter S80.02XA ; Open wound of left great toe, initial encounter S91.102A and Fall, initial encounter W19.XXXA [facility] [place] [address] [place] [address] Nov, Depression, major, recurrent , moderate 296.[address] [place] [address] Nov, Oral pain K13.79 ; Excessive cerumen in left ear canal H61.22 ; Impetigo L01.00 and Dyspnea R06.[address] [place] [address] Nov, [facility] [address] [facility] [id number] [address] [place] [address] Nov, Acute diffuse otitis externa of left ear H60.312 [facility] [address] [id number] [place] [address] Nov, Borderline personality disorder F60.3 ; Major depressive disorder, recurrent episode, moderate F33.1 and Panic disorder F41.[address] [place] [address] Oct, [address] [place] [address] Oct, [address] [place] [address] Oct, Depression, major, recurrent , moderate 296.32 [facility] IN [facility] [address] [place] [address] Oct, Acute swimmer's ear of left side H60.332 [facility] [address] [id number] [place] [address] Sep, Major depressive disorder, recurrent epi sode, moderate F33.1 ; Borderline personality disorder F60.3 and Panic disorder F41.0 [address] [place] [address] Sep, [address] [place] [address] Sep, [facility] [address] [id number] [place] [address] Sep, [facility] [address] [id number] [place] [address] Sep, [facility] [address] [id number] [place] [address] Sep, [address] [place] [address] Sep, Depression, major, recurrent , moderate 296.32 [facility] [address] [id number] [place] [address] Sep, [facility] [place] [address] [place] [address] Sep, [facility] [place] [address] [place] [address] Aug, [facility] [place] [address] [place] [address] Aug, [facility] [place] [address] [place] [address] Aug, Depression, major, recurrent , moderate 296.32 [facility] [address] [id number] [place] [address] Aug, Major depressive disorder, recurrent epi sode, moderate F33.1 ; Panic disorder F41.0 and Borderline personality disorder F60.3 [facility] [place] [address] [place] [address] Aug, Anxiety F41.9 ; Type 2 diabe nadine mellitus E11.9 ; Mixed incontinence urge and stress N39.46 ; Screening mammogram, encounter for Z12.31 and Morbid obesity E66.01 [facility] [place] [address] [place] [address] Aug, Type 2 diabetes mellitus E11 .9 [facility] [place] [address] [place] [address] Aug, [facility] [place] [address] [place] [address] Aug, Scalp cyst L72.9 and Morbid obesity E66.01 [facility] [place] [address] [place] [address] Aug, [facility] [address] [id number] [place] [address] Jul, Major depressive disorder, recurrent epi sode, moderate F33.1 ; Panic disorder F41.0 and Borderline personality disorder F60.3 [facility] [place] [address] [place] [address] Jul, [facility] [place] [address] [place] [address] Jul, [facility] [place] [address] [place] [address] Jul, [facility] [place] [address] [place] [address] Jul, [facility] [place] [address] [place] [address] Jul, [facility] [place] [address] [place] [address] Jul, Depression, major, recurrent , moderate 296.32 [facility] [place] [address] [place] [address] June, Type 2 diabetes mellitus E11 .9 ; Morbid (severe) obesity due to excess calories E66.01 and Body mass index (BMI) of 40.0-44.9 in adult Z68.41 [facility] [place] [address] [place] [address] June, [facility] [place] [address] [place] [address] June, [facility] [place] [address] [place] [address] June, Type 2 diabetes mellitus E11 .9 [facility] [place] [address] [place] [address] June, Type 2 diabetes mellitus E11 .9 and Morbid obesity E66.01 [facility] [address] [place] [address] June, [facility] [address] [place] [address] June, [facility] [address] [place] [address] June, [facility] [address] [place] [address] June, Morbid obesity E66.01 [facility] [address] [place] [address] May, [facility] [address] [place] [address] May, [facility] [address] [place] [address] May, [facility] [address] [place] [address] May, Hypothyroidism E03.9 ; Type 2 diabetes mellitus E11.9 and Morbid obesity E66.01 [facility] [address] [place] [address] May, Morbid obesity E66.01 [address] [id number] [place] [address] May, Peripheral edema R60.9 [address] [id number] [place] [address] May, Peripheral edema R60.9 ; Weight gain R63 .5 ; Shortness of breath R06.02 and Morbid obesity E66.01 [facility] [place] [facility] [address] [place] [address] May, Pedal edema R60.0 and Morbid obesity E66.01 [facility] [place] [address] [place] [address] May, [facility] [address] [place] [address] May, [facility] [place] [address] [place] [address] May, [facility] [address] [facility] [id number] [address] [place] [address] Apr, Bilateral lower extremity ed maria del rosario R60.0 ; Morbid obesity E66.01 and Weight gain R63.5 [facility] [address] [place] [address] Apr, [facility] [place] [address] [place] [address] Apr, [facility] [address] [place] [address] Apr, Migraine with aura and witho ut status migrainosus, not intractable G43.109 [facility] [address] [place] [address] Apr, [facility] [place] [address] [place] [address] Apr, [facility] [address] [place] [address] Apr, [facility] [address] [place] [address] Apr, [facility] [address] [place] [address] Apr, [facility] [address] [place] [address] Apr, Type 2 diabetes mellitus E11 .9 ; Pain in right knee M25.561 ; Other chronic pain G89.29 ; Pain in right shoulder M25.511 ; Morbid obesity E66.01 and Diabetic polyneuropathy associated with type 2 diabetes mellitus E11.42 [facility] [address] [place] [address] Apr, [facility] [address] [facility] [id number] [address] [place] [address] Apr, [facility] [place] [facility] [address] [place] [address] Mar, Open wound of right foot, in itial encounter S91.301A and Morbid obesity E66.01 [facility] [place] [facility] [address] [place] [address] Mar, Dysuria R30.0 and Painful ur ination R30.9 [address] [place] [address] Mar, Depression, major, recurrent , moderate 296.32 [facility] [place] [address] [place] [address] Mar, [address] [place] [address] Mar, [address] [address] Feb, Dental examination Z01.20 [address] [address] [address] Nov, [address] [place] [address] [address] Nov, [address] [address] [address] 08 Mar, 2015 Major depressive disorder, recurrent epi sode, moderate F33.1 ; Panic disorder F41.0 and Borderline personality disorder F60.3 [address] [address] Sep, Depression, major, recurrent, moderate 2 96.32 ; Agoraphobia with panic disorder 300.21 and Borderline personality disorder 301.83 [address] [address] Aug, Depression, major, recurrent, moderate 2 96.32 ; Panic disorder without agoraphobia 300.01 and Borderline personality disorder 301.83 [facility] [address] [address] Jul, Depression, major, recurrent, moderate 2 96.32 ; Agoraphobia with panic disorder 300.21 and Posttraumatic stress disorder 309.81 [facility] [id number] [place] [address] 30 May, 2014 [facility] [address] [address] 14 May, 2014 [facility] [address] [address] May, [facility] [address] [address] Apr, [facility] [address] [address] Apr, [facility] [address] [address] Apr, [facility] [address] [address] Apr, [facility] [address] [address] Mar, [facility] [address] [address] Mar, [facility] [address] [address] Mar, [facility] [address] [address] Mar, [facility] [address] [address] Feb, [facility] [address] [address] Feb, [facility] [address] [address] Jan, [facility] [place] [facility] [address] [id number] [place] [address] Jan, [facility] [place] [facility] [address] [id number] [place] [address] Jan, [facility] [place] [facility] [address] [id number] [place] [address] Jan, [facility] [place] [facility] [address] [id number] [place] [id number] Dec, [facility] [place] [facility] [address] [id number] [place] [id number] Dec, [facility] [place] [facility] [address] [id number] [place] [address] Dec, [facility] [place] [facility] [address] [id number] [place] [address] Dec, [facility] [place] [facility] [id number] [place] [address] Dec, [facility] [place] [facility] [id number] [place] [address] Nov, [facility] [place] [facility] [address] [id number] [place] [address] Nov, [facility] [place] [facility] [address] [id number] [place] [address] Nov, [facility] [place] [facility] [id number] [place] [address] Nov, [facility] [place] [facility] [address] [id number] [place] [address] Nov, [facility] [place] [facility] [address] [id number] [place] [address] Nov, [facility] [place] [facility] [id number] [place] [address] Nov, [facility] [place] [facility] [address] [id number] [place] [address] Nov, [facility] [place] [facility] [address] [id number] [place] [address] Oct, [facility] [place] [facility] [address] [facility] [id number] [place] [address] Oct, [facility] [place] [facility] [address] [facility] [id number] [place] [address] Sep, [facility] [place] [facility] [address] [facility] [id number] [place] [address] Sep, [facility] [place] [facility] [address] [facility] [id number] [place] [address] Sep, [facility] [place] [facility] [address] [facility] [id number] [place] [address] Sep, [facility] [place] [facility] [address] [id number] [place] [address] Sep, [facility] [place] [facility] [address] [id number] [place] [address] Sep, [facility] [place] [facility] [address] [id number] [place] [address] Jul, [facility] [place] [facility] [address] [facility] [id number] [place] [address] Jul, [facility] [place] [facility] [address] [id number] [place] [address] June, [facility] [place] [facility] [address] [id number] [place] [address] June, [facility] [place] [facility] [address] [id number] [place] [address] June, [facility] [place] [facility] [address] [facility] [id number] [place] [address] June, [facility] [place] [facility] [address] [id number] [place] [address] May, [facility] [place] [facility] [address] [facility] [id number] [place] [address] May, [facility] [place] [facility] [address] [id number] [place] [address] May, [facility] [place] [facility] [address] [id number] [place] [address] 15 May, 2013 [facility] [place] [facility] [address] [id number] [place] [address] Apr, [facility] [place] [facility] [address] [id number] [place] [address] Apr, [facility] [place] [facility] [address] [id number] [place] [address] Mar, [facility] [place] [facility] [address] [id number] [place] [address] Mar, [facility] [place] [facility] [address] [id number] [place] [address] Feb, [facility] [place] [facility] [address] [id number] [place] [address] Feb, [facility] [place] [facility] [id number] [place] [address] Feb, [facility] [place] [facility] [id number] [place] [address] Feb, [facility] [address] [id number] [place] [address] Dec, [facility] [id number] [place] [address] Dec, [facility] [id number] [place] [address] Dec, [facility] [address] [id number] [place] [address] 15 Dec, 2012 [facility] [address] [id number] [place] [address] Nov, [facility] [id number] [place] [address] 21 Nov, 2012 [facility] [address] [id number] [place] [address] 16 Nov, 2012 [facility] [id number] [place] [address] 16 Nov, 2012 [facility] [address] [facility] [id number] [place] [address] 23 Oct, 2012 [facility] [address] [id number] [place] [address] 16 Oct, 2012 [facility] [address] [id number] [place] [address] 10 Oct, 2012 [facility] [address] [id number] [place] [address] 03 Oct, 2012 [facility] [address] [id number] [place] [address] Aug, [facility] [address] [id number] [place] [address] Aug, [facility] [address] [id number] [place] [address] Aug, [facility] [address] [id number] [place] [address] Aug, [facility] [address] [id number] [place] [address] Aug, [facility] [address] [id number] [place] [address] Jul, [facility] [address] [id number] [place] [address] June, [facility] [address] [id number] [place] [address] May, [facility] [address] [id number] [place] [address] 14 Apr, 2012 [facility] [address] [id number] [place] [address] Mar, [facility] [address] [id number] [place] [address] Mar, [facility] [address] [id number] [place] [address] Jan, [facility] [address] [id number] [place] [address] Jan, [facility] [address] [id number] [place] [address] Jan, [facility] [address] [id number] [place] [address] Jan, [facility] [address] [id number] [place] [address] Jan, [facility] [address] [id number] [place] [address] Jan, [facility] [address] [id number] [place] [address] Jan, [facility] [address] [id number] [place] [address] Jan, [facility] [address] [id number] [place] [address] Jan, [facility] [address] [id number] [place] [address] Jan, [facility] [address] [id number] [place] [address] Dec, [facility] [address] [id number] [place] [address] Dec, [facility] [address] [id number] [place] [address] Dec, [facility] [address] [id number] [place] [address] Dec, [facility] [address] [id number] [place] [address] Dec, [facility] [address] [id number] [place] [address] Dec, [facility] [address] [id number] [place] [address] Nov, [facility] [address] [id number] [place] [address] Nov, [facility] [address] [id number] [place] [address] 24 Oct, 2011 [facility] [id number] [facility] [address] 24 Oct, 2011 [facility] [address] [id number] [place] [address] 24 Oct, 2011 [facility] [address] [id number] [place] [address] Oct, [facility] [address] [id number] [place] [address] Sep, [facility] [address] [id number] [place] [address] Sep, [facility] [address] [id number] [place] [address] Aug, [facility] [address] [id number] [place] [address] Aug, [facility] [address] [id number] [place] [address] Aug, [facility] [address] [id number] [place] [address] Aug, [facility] [address] [id number] [place] [address] Aug, [facility] [address] [id number] [place] [address] Aug, [facility] [address] [id number] [place] [address] Jul, [facility] [address] [id number] [place] [address] Jul, [facility] [address] [id number] [place] [address] June, [facility] [address] [id number] [place] [address] June, [facility] [address] [id number] [place] [address] May, [facility] [address] [id number] [place] [address] May, [facility] [address] [id number] [place] [address] May, [facility] [address] [id number] [place] [address] May, [facility] [address] [id number] [place] [address] Apr, [facility] [address] [id number] [place] [address] Apr, [facility] [address] [id number] [place] [address] Apr, [facility] [address] [id number] [place] [address] Apr, [facility] [address] [id number] [place] [address] 08 Mar, 2011 [facility] [address] [id number] [place] [address] Mar, [facility] [address] [id number] [place] [address] Feb, [facility] [address] [id number] [place] [address] Feb, [facility] [address] [id number] [place] [address] Feb, [facility] [address] [id number] [place] [address] Feb, [facility] [address] [id number] [place] [address] Feb, [facility] [address] [id number] [place] [address] Jan, [facility] [address] [id number] [place] [address] Dec, [facility] [address] [id number] [place] [address] Dec, [facility] [address] [id number] [place] [address] Dec, [facility] [address] [id number] [place] [address] Nov, [facility] [address] [id number] [place] [address] Nov, [facility] [address] [address] Aug, [facility] [address] [id number] [place] [address] Jan, [facility] [address] [id number] [place] [address] Dec, [facility] [address] [id number] [place] [address] Nov, [facility] [address] [id number] [place] [address] Jan, [facility] [address] [id number] [place] [address] Jan, IMMUNIZATIONS No Known Immunizations SOCIAL HISTORY Never Assessed REASON FOR VISIT PLAN OF CARE VITAL SIGNS MEDICATIONS Unknown Medications RESULTS No Results PROCEDURES Procedure Date Ordered Result Body Site PSYTX PT&/FAMILY 45 MINUTES July 27, 2013 INSTRUCTIONS MEDICATIONS ADMINISTERED No Known Medications [...] Surgical History x 3 Hospitalization History [facility] [address] [place] [address] for back surge ry Hospitalization History lt breast surgery(cancer)
--- OUTSIDE RECORDS SUMMARY | 2019-05-02 19:47 | XMS REPORT ---
Author Author Shannon MCCORMACK Organization [facility] Address [address] [place] [address] Care Team Providers Care Education Department Registrar Name Role Phone LAMBERTO MCCORMACK Unavailable PROBLEMS Type Condition ICD9-CM Code DJN67-MC Code Onset Dates Condition S tatus SNOMED Code Problem Panic disorder F41.0 Active 75561 1005 Problem Borderline personality disorder F60.3 Active 20041379 Problem Major depressive disorder, recurrent episode, moderate F33.1 Active 119746138 Problem IZABEL on CPAP G47.33 Active 53432170 Problem Open wound of right foot, initial encounter S91.30 1A Active 17631206933221292 Problem Spinal stenosis M48.00 Active 7610 7001 Problem Breast cancer C50.919 Active 743592 009 Problem Insomnia G47.00 Active 958307323 Problem Morbid (severe) obesity due to excess calories E66 .01 Active 425263864 Problem Hypothyroidism E03.9 Active 61014 008 Problem GERD (gastroesophageal reflux disease) K21.9 Active 116727047 Problem Osteoarthritis M19.90 Active 48696 5006 Problem Anxiety F41.9 Active 27962632 Problem Essential hypertension I10 Active 60944651 Problem Arthritis M19.90 Active 4791851 Problem Migraine G43.909 Active 14012341 Problem Diabetic polyneuropathy associated with type 2 d iabetes mellitus E11.42 Active 65336518 Problem Migraine with aura and without status migrainosu s, not intractable G43.109 Active 4211869 Problem DDD (degenerative disc disease), lumbar M51.36 Active 46101006 Problem Major depression F32.9 Active 370 313296 Problem BMI 45.0-49.9, adult Z68.42 Active 184654055 Problem Type 2 diabetes mellitus E11.9 Activ e 88627408 Problem Other chronic pain G89.29 Active 8 4979220 Problem Functional urinary incontinence R39.81 Active 013086185 Problem Mixed incontinence urge and stress N39.46 Active 503154093 Problem Body mass index (BMI) of 40.0-44.9 in adult Z68.41 Active 039653839 Problem Vitamin D deficiency E55.9 Active 55263686 ALLERGIES No Information ENCOUNTERS Encounter Location Date Diagnosis [facility] [address] [place] [address] Apr, [facility] [id number] [place] [address] Apr, [address] [place] [address] Mar, [facility] [address] [address] Mar, [facility] [id number] [place] [address] Mar, [place] [address] [address] Feb, [address] [place] [address] Feb, Essential hypertension I10 ; Tachycardia R00.0 ; Family history of heart disease Z82.49 and Type 2 diabetes mellitus E11.9 [facility] [id number] [place] [address] Feb, [facility] [address] [place] [address] Feb, [address] [place] [address] Feb, Type 2 diabetes mellitus E11 .9 [address] [place] [address] Feb, [place] [id number] [place] [address] Feb, [facility] [address] [place] [address] Feb, [address] [place] [address] Feb, [address] [place] [address] Feb, [facility] [address] [place] [address] Feb, Acute otitis externa of left ear, unspecified type H60.[address] [place] [address] Feb, Screening mammogram, encount er for Z12.31 [address] [place] [address] Feb, [address] [place] [address] Feb, [address] [place] [address] Feb, [address] [place] [address] Feb, DDD (degenerative disc disea se), lumbar M51.36 [facility] [address] [id number] [place] [address] 08 Feb, 2019 Borderline personality disorder F60.3 ; Major depressive disorder, recurrent episode, moderate F33.1 and Panic disorder F41.0 [address] [place] [address] Feb, [address] [place] [address] Feb, [address] [place] [address] Feb, Depression, major, recurrent , moderate 296.32 [address] [place] [address] 07 Feb, 2019 [facility] [address] [facility] [id number] 03 Feb, 2019 [facility] [address] [place] [id number] 0 3 Feb, [address] [place] [address] Feb, Acute bronchitis due to Myco plasma pneumoniae J20.0 [address] [place] [address] 03 Feb, 2019 Low back pain M54.5 [address] [place] [address] Feb, Pain in right hip M25.551 ; Pain in left hip M25.552 ; Other chronic pain G89.29 ; Vitamin D deficiency E55.9 ; Low back pain M54.5 ; Acute bronchitis due to Mycoplasma pneumoniae J20.0 and Type 2 diabetes mellitus E11.9 [address] [place] [address] Jan, [address] [place] [address] Jan, [address] [place] [address] Jan, [address] [place] [address] Jan[address] [place] [address] Jan, [address] [place] [address] Jan, [address] [place] [address] Jan, Depression, major, recurrent , moderate 296.[address] [place] [address] Dec, Non-intractable vomiting wit h nausea, unspecified vomiting type R11.[address] [place] [address] Dec, Encounter for immunization Z [address] [place] [address] Dec, [facility] [address] [place] [address] Dec, [facility] [address] [facility] [id number] [address] [place] [address] Dec, Acute diffuse otitis externa of left ear H60.312 [facility] [address] [facility] [id number] [place] [address] Dec, Borderline personality disorder F60.3 ; Major depressive disorder, recurrent episode, moderate F33.1 and Panic disorder F41.0 [facility] [address] [place] [address] Dec, Depression, major, recurrent , moderate 296.32 [facility] [address] [place] [address] Dec, Open wound of left great toe , initial encounter S91.102A ; Oral pain K13.79 ; Type 2 diabetes mellitus E11.9 and Depression, major, recurrent, moderate 296.32 [facility] [address] [place] [address] Nov, [facility] [address] [place] [address] Nov, [facility] [address] [place] [address] Nov, [facility] [address] [place] [address] Nov, [facility] [address] [place] [address] Nov, [facility] [address] [place] [address] Nov, [facility] [address] [place] [address] Nov, Acute pain of right wrist M2 5.531 ; Contusion of left knee, initial encounter S80.02XA ; Open wound of left great toe, initial encounter S91.102A and Fall, initial encounter W19.XXXA [address] [place] [address] Nov, Depression, major, recurrent , moderate 296.[address] [place] [address] Nov, Oral pain K13.79 ; Excessive cerumen in left ear canal H61.22 ; Impetigo L01.00 and Dyspnea R06.[address] [place] [address] Nov, [facility] [address] [facility] [id number] [address] [place] [address] Nov, Acute diffuse otitis externa of left ear H60.312 [facility] [id number] [place] [address] Nov, Borderline personality disorder F60.3 ; Major depressive disorder, recurrent episode, moderate F33.1 and Panic disorder F41.0 [address] [place] [address] Oct, [address] [place] [address] Oct, [address] [place] [address] Oct, Depression, major, recurrent , moderate 296.32 [facility] [address] [place] [address] Oct, Acute swimmer's ear of left side H60.332 [facility] [id number] [place] [address] Sep, Major depressive disorder, recurrent epi sode, moderate F33.1 ; Borderline personality disorder F60.3 and Panic disorder F41.0 [address] [place] [address] Sep, [facility] [address] [place] [address] Sep, [facility] [address] [id number] [place] [address] Sep, [facility] [address] [id number] [place] [address] Sep, [facility] [address] [id number] [place] [address] Sep, [address] [place] [address] Sep, Depression, major, recurrent , moderate 296.32 [facility] [address] [id number] [place] [address] Sep, [facility] [address] [place] [address] Sep, [facility] [address] [place] [address] Aug, [facility] [address] [place] [address] Aug, [address] [place] [address] Aug, Depression, major, recurrent , moderate 296.32 [facility] [address] [id number] [place] [address] Aug, Major depressive disorder, recurrent epi sode, moderate F33.1 ; Panic disorder F41.0 and Borderline personality disorder F60.3 [facility] [address] [place] [address] Aug, Anxiety F41.9 ; Type 2 diabe nadine mellitus E11.9 ; Mixed incontinence urge and stress N39.46 ; Screening mammogram, encounter for Z12.31 and Morbid obesity E66.01 [facility] [address] [place] [address] Aug, Type 2 diabetes mellitus E11 .9 [facility] [place] [address] [place] [address] Aug, [facility] [place] [address] [place] [address] Aug, Scalp cyst L72.9 and Morbid obesity E66.01 [facility] [address] [place] [address] Aug, [facility] [address] [id number] [place] [address] Jul, Major depressive disorder, recurrent epi sode, moderate F33.1 ; Panic disorder F41.0 and Borderline personality disorder F60.3 [facility] [place] [address] [place] [address] Jul, [facility] [place] [address] [place] [address] Jul, [facility] [place] [address] [place] [address] Jul, [facility] [place] [address] [place] [address] Jul, [facility] [address] [place] [address] Jul, [facility] [address] [place] [address] Jul, Depression, major, recurrent , moderate 296.32 [facility] [place] [address] [place] [address] June, Type 2 diabetes mellitus E11 .9 ; Morbid (severe) obesity due to excess calories E66.01 and Body mass index (BMI) of 40.0-44.9 in adult Z68.41 [facility] [place] [address] [place] [address] June, [facility] [place] [address] [place] [address] June, [facility] [place] [address] [facility] [place] [address] June, Type 2 diabetes mellitus E11 .9 [facility] [place] [address] [place] [address] June, Type 2 diabetes mellitus E11 .9 and Morbid obesity E66.01 [facility] [address] [facility] [place] [address] June, [facility] [place] [address] [place] [address] June, [facility] [address] [place] [address] June, [facility] [place] [address] [place] [address] June, Morbid obesity E66.01 [facility] [address] [place] [address] May, [facility] [place] [address] [place] [address] May, [facility] [address] [place] [address] May, [facility] [place] [address] [place] [address] May, Hypothyroidism E03.9 ; Type 2 diabetes mellitus E11.9 and Morbid obesity E66.01 [facility] [place] [address] [place] [address] May, Morbid obesity E66.01 [facility] [address] [id number] [place] [address] May, Peripheral edema R60.9 [facility] [address] [id number] [place] [address] May, Peripheral edema R60.9 ; Weight gain R63 .5 ; Shortness of breath R06.02 and Morbid obesity E66.01 [facility] [address] [place] [address] May, Pedal edema R60.0 and Morbid obesity E66.01 [facility] [address] [place] [address] May, [facility] [place] [address] [place] [address] May, [facility] [place] [address] [place] [address] May, [facility] [id number] [place] [address] Apr, Bilateral lower extremity ed maria del rosario R60.0 ; Morbid obesity E66.01 and Weight gain R63.5 [facility] [address] [place] [address] Apr, [facility] [place] [address] [place] [address] Apr, [facility] [place] [address] [place] [address] Apr, Migraine with aura and witho ut status migrainosus, not intractable G43.109 [facility] [address] [place] [address] Apr, [facility] [place] [address] [place] [address] Apr, [facility] [place] [address] [place] [address] Apr, [facility] [place] [address] [place] [address] Apr, [facility] [address] [place] [address] Apr, [facility] [place] [address] [place] [address] 07 Apr, 2018 Type 2 diabetes mellitus E11 .9 ; Pain in right knee M25.561 ; Other chronic pain G89.29 ; Pain in right shoulder M25.511 ; Morbid obesity E66.01 and Diabetic polyneuropathy associated with type 2 diabetes mellitus E11.42 [facility] [address] [place] [address] Apr, [facility] [address] [facility] [id number] [address] [place] [address] Apr, [facility] [place] [facility] [address] [place] [address] Mar, Open wound of right foot, in itial encounter S91.301A and Morbid obesity E66.01 [facility] [place] [facility] [address] [place] [address] 09 Mar, 2018 Dysuria R30.0 and Painful ur ination R30.9 [address] [place] [address] 07 Mar, 2018 Depression, major, recurrent , moderate 296.32 [address] [place] [address] Mar, [address] [place] [address] 04 Mar, 2018 [place] [id number] [place] [address] Feb, Dental examination Z01.20 [place] [id number] [place] [address] Nov, [place] [address] [address] Nov, [place] [address] [address] 08 Mar, 2015 Major depressive disorder, recurrent epi sode, moderate F33.1 ; Panic disorder F41.0 and Borderline personality disorder F60.3 [place] [address] [address] Sep, Depression, major, recurrent, moderate 2 96.32 ; Agoraphobia with panic disorder 300.21 and Borderline personality disorder 301.83 [facility] [id number] [place] [address] Aug, Depression, major, recurrent, moderate 2 96.32 ; Panic disorder without agoraphobia 300.01 and Borderline personality disorder 301.83 [facility] [address] [address] Jul, Depression, major, recurrent, moderate 2 96.32 ; Agoraphobia with panic disorder 300.21 and Posttraumatic stress disorder 309.81 [facility] [address] [address] 30 May, 2014 [facility] [address] [address] May, [facility] [address] [address] May, [facility] [address] [address] Apr, [facility] [address] [address] Apr, [facility] [address] [address] Apr, [facility] [address] [address] Apr, [facility] [address] [address] Mar, [facility] [address] [address] Mar, [facility] [address] [address] Mar, [facility] [address] [address] Mar, [facility] [address] [address] [place] [address] Feb, [facility] [address] [id number] [place] [address] Feb, [facility] [address] [id number] [place] [address] Jan, [facility] [address] [id number] [place] [address] Jan, [facility] [address] [id number] [place] [address] Jan, [facility] [address] [id number] [place] [address] Jan, [facility] [id number] [place] [id number] Dec, [facility] [address] [facility] [place] [id number] Dec, [facility] [address] [id number] [place] [address] Dec, [facility] [address] [id number] [place] [address] Dec, [facility] [address] [id number] [place] [address] Dec, [facility] [address] [id number] [place] [address] Nov, [facility] [address] [id number] [place] [address] Nov, [facility] [address] [id number] [place] [address] Nov, [facility] [address] [id number] [place] [address] Nov, [facility] [address] [id number] [place] [address] Nov, [facility] [address] [id number] [place] [address] Nov, [facility] [address] [facility] [id number] [place] [address] Nov, [facility] [address] [id number] [place] [address] Nov, [facility] [address] [id number] [place] [address] Oct, [facility] [address] [id number] [place] [address] Oct, [facility] [address] [id number] [place] [address] Sep, [facility] [address] [id number] [place] [address] Sep, [facility] [address] [id number] [place] [address] Sep, [facility] [address] [id number] [place] [address] Sep, [facility] [address] [id number] [place] [address] Sep, [facility] [address] [id number] [place] [address] Sep, [facility] [address] [id number] [place] [address] Jul, [facility] [address] [id number] [place] [address] Jul, [facility] [address] [id number] [place] [address] June, [facility] [address] [id number] [place] [address] June, [facility] [address] [id number] [place] [address] June, [facility] [address] [id number] [place] [address] June, [facility] [address] [id number] [place] [address] May, [facility] [address] [id number] [place] [address] May, [facility] [address] [id number] [place] [address] May, [facility] [address] [id number] [place] [address] 15 May, 2013 [facility] [address] [id number] [place] [address] Apr, [facility] [address] [facility] [id number] [place] [address] Apr, [facility] [address] [id number] [place] [address] Mar, [facility] [address] [id number] [place] [address] Mar, [facility] [address] [id number] [place] [address] Feb, [facility] [address] [id number] [place] [address] Feb, [facility] [address] [id number] [place] [address] Feb, [facility] [address] [id number] [place] [address] Feb, [facility] [address] [id number] [place] [address] Dec, [facility] [address] [id number] [place] [address] Dec, [facility] [address] [id number] [place] [address] Dec, [facility] [address] [id number] [place] [address] Dec, [facility] [address] [id number] [place] [address] Nov, [facility] [address] [id number] [place] [address] Nov, [facility] [address] [id number] [place] [address] Nov, [facility] [address] [id number] [place] [address] Nov, [facility] [address] [id number] [place] [address] Oct, [facility] [address] [id number] [place] [address] Oct, [facility] [address] [id number] [place] [address] Oct, [facility] [address] [id number] [place] [address] Oct, [facility] [address] [id number] [place] [address] Aug, [facility] [address] [id number] [place] [address] Aug, [facility] [address] [id number] [place] [address] Aug, [facility] [address] [id number] [place] [address] Aug, [facility] [address] [id number] [place] [address] Aug, [facility] [address] [facility] [id number] [place] [address] Jul, [facility] [address] [id number] [place] [address] June, [facility] [address] [id number] [place] [address] May, [facility] [address] [id number] [place] [address] Apr, [facility] [address] [id number] [place] [address] Mar, [facility] [address] [id number] [place] [address] Mar, [facility] [address] [id number] [place] [address] Jan, [facility] [address] [id number] [place] [address] Jan, [facility] [address] [id number] [place] [address] Jan, [facility] [address] [id number] [place] [address] Jan, [facility] [address] [id number] [place] [address] Jan, [facility] [address] [id number] [place] [address] Jan, [facility] [address] [id number] [place] [address] Jan, [facility] [address] [id number] [place] [address] Jan, [facility] [address] [id number] [place] [address] Jan, [facility] [address] [id number] [place] [address] Jan, [facility] [address] [id number] [place] [address] Dec, [facility] [address] [id number] [place] [address] Dec, [facility] [address] [id number] [place] [address] Dec, [facility] [address] [id number] [place] [address] Dec, [facility] [address] [id number] [place] [address] Dec, [facility] [address] [id number] [place] [address] Dec, [facility] [address] [id number] [place] [address] Nov, [facility] [address] [facility] [id number] [facility] [place] [address] Nov, [facility] [address] [id number] [place] [address] Oct, [facility] [address] [id number] [facility] [place] [address] Oct, [facility] [address] [facility] [id number] [facility] [place] [address] Oct, [facility] [address] [id number] [place] [address] Oct, [facility] [address] [id number] [place] [address] Sep, [facility] [address] [id number] [place] [address] Sep, [facility] [address] [id number] [place] [address] Aug, [facility] [address] [id number] [place] [address] Aug, [facility] [address] [id number] [place] [address] Aug, [facility] [address] [id number] [place] [address] Aug, [facility] [address] [id number] [place] [address] Aug, [facility] [address] [id number] [place] [address] Aug, [facility] [address] [id number] [place] [address] Jul, [facility] [address] [id number] [place] [address] Jul, [facility] [address] [id number] [place] [address] June, [facility] [address] [id number] [place] [address] June, [facility] [address] [id number] [place] [address] May, [facility] [address] [id number] [place] [address] May, [facility] [address] [id number] [place] [address] May, [facility] [address] [id number] [place] [address] May, [facility] [address] [id number] [place] [address] Apr, [facility] [address] [id number] [place] [address] Apr, [facility] [address] [id number] [place] [address] Apr, [facility] [address] [id number] [place] [address] Apr, [facility] [address] [id number] [place] [address] Mar, [facility] [address] [id number] [place] [address] Mar, [facility] [address] [id number] [place] [address] Feb, [facility] [address] [id number] [place] [address] Feb, [facility] [id number] [place] [address] Feb, [facility] [address] [id number] [place] [address] Feb, [facility] [address] [id number] [place] [address] Feb, [facility] [id number] [place] [address] Jan, [facility] [id number] [place] [address] Dec, [facility] [id number] [place] [address] Dec, [facility] [id number] [place] [address] Dec, [facility] [id number] [place] [address] Nov, [facility] [address] [address] Nov, [facility] [address] [address] Aug, [facility] [address] [address] Jan, [facility] [id number] [place] [address] Dec, [facility] [address] [address] Nov, [facility] [id number] [place] [address] Jan, [facility] [id number] [place] [address] Jan, IMMUNIZATIONS No Known Immunizations SOCIAL HISTORY Never Assessed REASON FOR VISIT PLAN OF CARE VITAL SIGNS MEDICATIONS Unknown Medications RESULTS No Results PROCEDURES Procedure Date Ordered Result Body Site PSYTX PT&/FAMILY 45 MINUTES June 09, 2013 INSTRUCTIONS MEDICATIONS ADMINISTERED No Known Medications [...] [place] Hospitalization History lt breast surgery(cancer)
--- OUTSIDE RECORDS SUMMARY | 2019-05-02 19:47 | XMS REPORT ---
Author Author Shannon DUFF Organization [facility] Address [address] [place] [address] Care Team Providers Care Student Teaching Coordinator Name Role Phone RICHA DUFF Unavailable PROBLEMS Type Condition ICD9-CM Code [id number] Code Onset Dates Condition S tatus SNOMED Code Problem Arthritis M19.90 Active 8678561 Problem Osteoarthritis M19.90 Active 27441 5006 Problem Major depression F32.9 Active 370 445480 Problem Essential hypertension I10 Active 20258370 Problem GERD (gastroesophageal reflux disease) K21.9 Active 387323370 Problem Insomnia G47.00 Active 415681118 Problem Anxiety F41.9 Active 03830018 Problem Major depressive disorder, recurrent episode, moderate F33.1 Active 795420550 Problem Hypothyroidism E03.9 Active 52723 008 Problem Borderline personality disorder F60.3 Active 47322838 Problem Migraine G43.909 Active 42703582 Problem Morbid (severe) obesity due to excess calories E66 .01 Active 176953088 Problem IZABEL on CPAP G47.33 Active 91800954 Problem Mixed incontinence urge and stress N39.46 Active 252869566 Problem Spinal stenosis M48.00 Active 7610 7001 Problem Open wound of right foot, initial encounter S91.30 1A Active [id number] Problem Body mass index (BMI) of 40.0-44.9 in adult Z68.41 Active 405634215 Problem Breast cancer C50.919 Active 434387 009 Problem Panic disorder F41.0 Active 21921 1005 Problem Other chronic pain G89.29 Active 8 3776128 Problem Type 2 diabetes mellitus E11.9 Activ e 93313992 Problem Diabetic polyneuropathy associated with type 2 d iabetes mellitus E11.42 Active 36160873 Problem Migraine with aura and without status migrainosu s, not intractable G43.109 Active 3752226 Problem Functional urinary incontinence R39.81 Active [id number] ALLERGIES No Information ENCOUNTERS Encounter Location Date Diagnosis [facility] [address] [id number] [address] [place] [address] Nov, [facility] [address] [address] Oct, [address] [address] Oct, Depression, major, recurrent, moderate 2 96.32 [facility] [address] [facility] [place] [address] Oct, Acute swimmer's ear of left side H60.332 [facility] [address] [id number] [address] [place] [address] Sep, Major depressive disorder, r ecurrent episode, moderate F33.1 ; Borderline personality disorder F60.3 and Panic disorder F41.0 [facility] [address] [address] Sep, [address] [address] Sep, [facility] [address] [id number] [address] [place] [address] Sep, [facility] [address] [facility] [id number] [address] [place] [address] Sep, [facility] [address] [facility] [id number] [address] [place] [address] Sep, [facility] [address] [address] Sep, Depression, major, recurrent, moderate 2 96.32 [facility] [address] [id number] [address] [place] [address] Sep, [facility] [address] [address] Sep, [facility] [address] [address] Aug, [address] [address] Aug, [address] [place] [address] Aug, Depression, major, recurrent, moderate 2 96.32 [facility] [address] [facility] [id number] [address] [address] Aug, Major depressive disorder, r ecurrent episode, moderate F33.1 ; Panic disorder F41.0 and Borderline personality disorder F60.[address] [address] Aug, Anxiety F41.9 ; Type 2 diabetes mellitus E11.9 ; Mixed incontinence urge and stress N39.46 ; Screening mammogram, encounter for Z12.31 and Morbid obesity E66.[address] [address] Aug, Type 2 diabetes mellitus E11.[address] [address] Aug, [address] [address] Aug, Scalp cyst L72.9 and Morbid obesity E66. [address] [address] Aug, [facility] [address] [facility] [id number] [address] [address] Jul, Major depressive disorder, r ecurrent episode, moderate F33.1 ; Panic disorder F41.0 and Borderline personality disorder F60.[address] [address] Jul, [address] [address] Jul, [address] [address] Jul, [address] [address] Jul, [address] [address] Jul, [address] [address] Jul, Depression, major, recurrent, moderate 2 96.32 [facility] [address] [place] [address] June, Type 2 diabetes mellitus E11.9 ; Morbid (severe) obesity due to excess calories E66.01 and Body mass index (BMI) of 40.0-44.9 in adult Z68.41 [facility] [address] [address] June, [facility] [address] [place] [address] June, [facility] [address] [place] [address] June, Type 2 diabetes mellitus E11.9 [facility] [address] [place] [address] June, Type 2 diabetes mellitus E11.9 and Morbi d obesity E66.01 [facility] [address] [place] [address] June, [facility] [address] [place] [address] June, [facility] [address] [place] [address] June, [facility] [address] [place] [address] June, Morbid obesity E66.01 [facility] [address] [place] [address] May, [facility] [address] [place] [address] May, [facility] [address] [place] [address] May, [address] [place] [address] May, Hypothyroidism E03.9 ; Type 2 diabetes m ellitus E11.9 and Morbid obesity E66.01 [facility] [address] [place] [address] May, Morbid obesity E66.01 [facility] [address] [facility] [id number] [place] [address] May, Peripheral edema R60.9 [facility] [address] [id number] [address] [address] May, Peripheral edema R60.9 ; Fadi ght gain R63.5 ; Shortness of breath R06.02 and Morbid obesity E66.01 [facility] [address] [facility] [place] [address] May, Pedal edema R60.0 and Morbid obesity E66 .01 [facility] [address] [place] [address] May, [address] [address] May, [address] [place] [address] May, [facility] [address] [facility] [id number] [address] [address] Apr, Bilateral lower extremity ed maria del rosario R60.0 ; Morbid obesity E66.01 and Weight gain R63.5 [facility] [address] [address] Apr, [facility] [address] [address] Apr, [address] [address] Apr, Migraine with aura and without status mi grainosus, not intractable G43.109 [facility] [address] [address] Apr, [facility] [address] [address] Apr, [address] [address] Apr, [facility] [address] [address] Apr, [facility] [address] [address] Apr, [facility] [address] [address] Apr, Type 2 diabetes mellitus E11.9 ; Pain in right knee M25.561 ; Other chronic pain G89.29 ; Pain in right shoulder M25.511 ; Morbid obesity E66.01 and Diabetic polyneuropathy associated with type 2 diabetes mellitus E11.[address] [address] Apr, [facility] [address] [facility] [id number] [address] [place] [address] Apr, [facility] [address] [place] [address] Mar, Open wound of right foot, initial encoun ter S91.301A and Morbid obesity E66.01 [facility] [address] [place] [address] 09 Mar, 2018 Dysuria R30.0 and Painful urination R30. [address] [address] Mar, Depression, major, recurrent, moderate [address] 96[address] [address] Mar, [address] [address] Mar, [facility] [address] [place] [id number] [address] [place] [address] Feb, Dental examination Z01.20 [facility] [address] [facility] [id number] [address] [place] [address] Nov, [facility] [address] [facility] [id number] [address] [place] [address] Nov, [place] [address] [facility] [id number] [address] [place] [address] 08 Mar, 2015 Major depressive disorder, r ecurrent episode, moderate F33.1 ; Panic disorder F41.0 and Borderline personality disorder F60.3 [place] [address] [facility] [id number] [address] [place] [address] Sep, Depression, major, recurrent , moderate 296.32 ; Agoraphobia with panic disorder 300.21 and Borderline personality disorder 301.83 [facility] [address] [facility] [id number] [address] [place] [address] Aug, Depression, major, recurrent , moderate 296.32 ; Panic disorder without agoraphobia 300.01 and Borderline personality disorder 301.83 [facility] [address] [facility] [id number] [address] [place] [address] Jul, Depression, major, recurrent , moderate 296.32 ; Agoraphobia with panic disorder 300.21 and Posttraumatic stress disorder 309.81 [facility] [address] [facility] [id number] [address] [place] [address] May, [facility] [address] [facility] [id number] [address] [place] [address] May, [facility] [address] [place] [id number] [place] [address] May, [facility] [address] [facility] [id number] [address] [place] [address] Apr, [facility] [address] [place] [id number] [place] [address] Apr, [facility] [address] [facility] [id number] [address] [place] [address] Apr, [facility] [address] [facility] [id number] [address] [place] [address] Apr, [facility] [address] [facility] [id number] [address] [place] [address] Mar, [facility] [address] [facility] [id number] [address] [place] [address] Mar, [facility] [address] [facility] [id number] [address] [place] [address] Mar, [facility] [address] [place] [id number] [address] [place] [address] Mar, [facility] [address] [id number] [address] [place] [address], [place] [address] Feb, [facility] [address] [id number] [address] [place] [address], [place] [address] Feb, [facility] [address] [id number] [address] [place] [address], [place] [address] Jan, [facility] [address] [id number] [address] [place] [address], [place] [address] Jan, [facility] [address] [id number] [address] [place] [address], [place] [address] Jan, [facility] [address] [id number] [address] [place] [address], [place] [address] Jan, [facility] [address] [id number] [address] [place] [id number] Dec, [facility] [address] [id number] [address] [place] [id number] Dec, [facility] [address] [id number] [address] [place] [address], [place] [address] Dec, [facility] [address] [id number] [address] [place] [address] Dec, [facility] [address] [id number] [address] [place] [address] Dec, [facility] [address] [id number] [address] [place] [address] Nov, [facility] [address] [id number] [address] [place] [address], [place] [address] Nov, [facility] [address] [id number] [address] [place] [address], [place] [address] Nov, [facility] [address] [id number] [address] [place] [address] Nov, [facility] [address] [id number] [address] [place] [address] Nov, [facility] [address] [id number] [address] [place] [address], [place] [address] Nov, [facility] [address] [id number] [address] [place] [address], [place] [address] Nov, [facility] [address] [id number] [address] [place] [address], [place] [address] Nov, [facility] [address] [id number] [address] [place] [address], [place] [address] Oct, [facility] [address] [id number] [address] [place] [address], [place] [address] Oct, [facility] [address] [id number] [address] [place] [address], [place] [address] Sep, [facility] [address] [id number] [address] [place] [address], [place] [address] Sep, [facility] [address] [id number] [address] [place] [address], [place] [address] Sep, [facility] [address] [id number] [address] [place] [address], [place] [address] Sep, [facility] [address] [id number] [address] [place] [address], [place] [address] Sep, [facility] [address] [id number] [address] [place] [address], [place] [address] Sep, [facility] [address] [id number] [address] [place] [address], [place] [address] Jul, [facility] [address] [id number] [address] [place] [address], [place] [address] Jul, [facility] [address] [id number] [address] [place] [address], [place] [address] June, [facility] [address] [id number] [address] [place] [address], [place] [address] June, [facility] [address] [id number] [address] [place] [address], [place] [address] June, [facility] [address] [id number] [address] [place] [address], [place] [address] June, [facility] [address] [id number] [address] [place] [address], [place] [address] May, [facility] [address] [id number] [address] [place] [address], [place] [address] May, [facility] [address] [id number] [address] [place] [address], [place] [address] May, [facility] [address] [id number] [address] [place] [address], [place] [address] May, [facility] [address] [id number] [address] [place] [address], [place] [address] Apr, [facility] [address] [id number] [address] [place] [address], [place] [address] Apr, [facility] [address] [id number] [address] [place] [address], [place] [address] Mar, [facility] [address] [id number] [address] [place] [address], [place] [address] Mar, [facility] [address] [id number] [address] [place] [address], [place] [address] Feb, [facility] [address] [id number] [address] [place] [address], [place] [address] Feb, [facility] [address] [id number] [address] [place] [address], [place] [address] Feb, [facility] [address] [id number] [address] [place] [address], [place] [address] Feb, [facility] [address] [id number] [address] [place] [address], [place] [address] Dec, [facility] [address] [id number] [address] [place] [address], [place] [address] Dec, [facility] [address] [id number] [address] [place] [address], [place] [address] Dec, [facility] [address] [id number] [address] [place] [address], [place] [address] Dec, [facility] [address] [id number] [address] [place] [address], [place] [address] Nov, [facility] [address] [id number] [address] [place] [address], [place] [address] Nov, [facility] [address] [id number] [address] [place] [address], [place] [address] Nov, [facility] [address] [id number] [address] [place] [address], [place] [address] Nov, [facility] [address] [id number] [address] [place] [address], [place] [address] 23 Oct, 2012 [facility] [address] [id number] [address] [place] [address], [place] [address] 16 Oct, 2012 [facility] [address] [id number] [address] [place] [address], [place] [address] 10 Oct, 2012 [facility] [address] [id number] [address] [place] [address], [place] [address] Oct, [facility] [address] [id number] [address] [place] [address] 31 Aug, 2012 [facility] [address] [id number] [address] [place] [address] Aug, [facility] [address] [id number] [address] [place] [address], [place] [address] Aug, [facility] [address] [id number] [address] [place] [address], [place] [address] Aug, [facility] [address] [id number] [address] [place] [address], [place] [address] Aug, [facility] [address] [id number] [address] [place] [address], [place] [address] Jul, [facility] [address] [id number] [address] [place] [address], [place] [address] June, [facility] [address] [id number] [address] [place] [address], [place] [address] 10 May, 2012 [facility] [address] [id number] [address] [place] [address], [place] [address] Apr, [facility] [address] [id number] [address] [place] [address], [place] [address] 13 Mar, 2012 [facility] [address] [id number] [address] [place] [address], [place] [address] Mar, [facility] [address] [id number] [address] [place] [address], [place] [address] Jan, [facility] [address] [id number] [address] [place] [address], [place] [address] Jan, [facility] [address] [id number] [address] [place] [address], [place] [address] Jan, [facility] [address] [id number] [address] [place] [address], [place] [address] Jan, [facility] [address] [id number] [address] [place] [address], [place] [address] Jan, [facility] [address] [id number] [address] [place] [address], [place] [address] Jan, [facility] [address] [id number] [address] [place] [address], [place] [address] Jan, [facility] [address] [id number] [address] [place] [address], [place] [address] Jan, [facility] [address] [id number] [address] [place] [address], [place] [address] Jan, [facility] [address] [id number] [address] [place] [address], [place] [address] Jan, [facility] [address] [id number] [address] [place] [address], [place] [address] Dec, [facility] [address] [id number] [address] [place] [address], [place] [address] Dec, [facility] [address] [id number] [address] [place] [address], [place] [address] Dec, [facility] [address] [id number] [address] [place] [address], [place] [address] Dec, [facility] [address] [id number] [address] [place] [address], [place] [address] Dec, [facility] [address] [id number] [address] [place] [address], [place] [address] Dec, [facility] [address] [id number] [address] [place] [address], [place] [address] Nov, [facility] [address] [id number] [address] [place] [address], [place] [address] Nov, [facility] [address] [id number] [address] [place] [address], [place] [address] Oct, [facility] [address] [id number] [address] [place] [address], [place] [address] Oct, [facility] [address] [id number] [address] [place] [address], [place] [address] Oct, [facility] [address] [id number] [address] [place] [address] Oct, [facility] [address] [id number] [address] [place] [address], [place] [address] Sep, [facility] [address] [id number] [address] [place] [address], [place] [address] Sep, [facility] [address] [id number] [address] [place] [address], [place] [address] Aug, [facility] [address] [id number] [address] [place] [address], [place] [address] Aug, [facility] [address] [id number] [address] [place] [address], [place] [address] Aug, [facility] [address] [id number] [address] [place] [address], [place] [address] Aug, [facility] [address] [id number] [address] [place] [address], [place] [address] Aug, [facility] [address] [id number] [address] [place] [address], [place] [address] Aug, [facility] [address] [id number] [address] [place] [address], [place] [address] Jul, [facility] [address] [id number] [address] [place] [address], [place] [address] Jul, [facility] [address] [id number] [address] [place] [address], [place] [address] June, [facility] [address] [id number] [address] [place] [address], [place] [address] June, [facility] [address] [id number] [address] [place] [address], [place] [address] May, [facility] [address] [id number] [address] [place] [address], [place] [address] May, [facility] [address] [id number] [address] [place] [address], [place] [address] 05 May, 2011 [facility] [address] [id number] [address] [place] [address], [place] [address] 04 May, 2011 [facility] [address] [id number] [address] [place] [address], [place] [address] Apr, [facility] [address] [id number] [address] [place] [address], [place] [address] 15 Apr, 2011 [facility] [address] [id number] [address] [place] [address], [place] [address] Apr, [facility] [address] [id number] [address] [place] [address], [place] [address] Apr, [facility] [address] [id number] [address] [place] [address], [place] [address] Mar, [facility] [address] [id number] [address] [place] [address], [place] [address] Mar, [facility] [address] [id number] [address] [place] [address], [place] [address] Feb, [facility] [address] [id number] [address] [place] [address], [place] [address] Feb, [facility] [address] [id number] [address] [place] [address], [place] [address] Feb, [facility] [address] [id number] [address] [place] [address], [place] [address] Feb, [facility] [address] [id number] [address] [place] [address], [place] [address] Feb, [facility] [address] [id number] [address] [place] [address], [place] [address] Jan, [facility] [address] [id number] [address] [place] [address], [place] [address] Dec, [facility] [address] [id number] [address] [place] [address], [place] [address] Dec, [facility] [address] [id number] [address] [place] [address], [place] [address] Dec, [facility] [address] [id number] [address] [place] [address], [place] [address] Nov, [facility] [address] [id number] [address] [place] [address], [place] [address] Nov, [facility] [address] [id number] [address] [place] [address], [place] [address] Aug, [facility] [address] [id number] [address] [place] [address], [place] [address] Jan, [facility] [address] [facility] [id number] [address] [place] [id number] Dec, [facility] [address] [facility] [id number] [address] [place] [phone] Nov, [facility] [address] [facility] [id number] [address] [place] [address] Jan, [facility] [address] [facility] [id number] [address] [place] [phone] Jan, IMMUNIZATIONS No Known Immunizations SOCIAL HISTORY Never Assessed REASON FOR VISIT PLAN OF CARE VITAL SIGNS Height 65 in 2014-03-09 Weight 250 lbs 2014-03-09 Temperature 98.7 degrees Fahrenheit 2014-03-09 Heart Rate 100 bpm 2014-03-09 Respiratory Rate 28 2014-03-09 Blood pressure systolic 134 mmHg 2014-03-09 Blood pressure diastolic 86 mmHg 2014-03-09 MEDICATIONS Unknown Medications RESULTS No Results PROCEDURES [...] breast Surgical History x 3 Hospitalization History [facility] [address] [place] [address] for back surge ry Hospitalization History lt breast surgery(cancer)
--- OUTSIDE RECORDS SUMMARY | 2019-05-02 19:47 | XMS REPORT ---
Author Author Filipe, Shannon Doctor Organization [facility] Address Unknown Phone Unavailable Care Team Providers Care Sprayer Insecticide Name Role Phone Migration, Doctor Unavailable Unavailable PROBLEMS Type Condition ICD9-CM Code [id number] Code Onset Dates Condition S tatus SNOMED Code Problem Panic disorder F41.0 Active 97068 1005 Problem Borderline personality disorder F60.3 Active 42583982 Problem Major depressive disorder, recurrent episode, moderate F33.1 Active 135146410 Problem IZABEL on CPAP G47.33 Active 35795203 Problem Open wound of right foot, initial encounter S91.30 1A Active [id number] Problem Spinal stenosis M48.00 Active 7610 7001 Problem Breast cancer C50.919 Active 651899 009 Problem Insomnia G47.00 Active 666223344 Problem Morbid (severe) obesity due to excess calories E66 .01 Active 985125638 Problem Hypothyroidism E03.9 Active 95511 008 Problem GERD (gastroesophageal reflux disease) K21.9 Active 671869219 Problem Osteoarthritis M19.90 Active 65953 5006 Problem Anxiety F41.9 Active 29599598 Problem Essential hypertension I10 Active 38092989 Problem Arthritis M19.90 Active 7243701 Problem Migraine G43.909 Active 92383873 Problem Diabetic polyneuropathy associated with type 2 d iabetes mellitus E11.42 Active 60854528 Problem Migraine with aura and without status migrainosu s, not intractable G43.109 Active 9467768 Problem DDD (degenerative disc disease), lumbar M51.36 Active 02772604 Problem Major depression F32.9 Active 370 709269 Problem BMI 45.0-49.9, adult Z68.42 Active 003852990 Problem Type 2 diabetes mellitus E11.9 Activ e 79199515 Problem Other chronic pain G89.29 Active 8 4682974 Problem Functional urinary incontinence R39.81 Active 667477356 Problem Mixed incontinence urge and stress N39.46 Active 457952452 Problem Body mass index (BMI) of 40.0-44.9 in adult Z68.41 Active 042196461 Problem Vitamin D deficiency E55.9 Active 98482176 ALLERGIES No Information ENCOUNTERS Encounter Location Date Diagnosis [facility] [address] [place] [address] Apr, [facility] [address] [id number] [place] [address] Apr, [address] [place] [address] Mar, [facility] [id number] [place] [address] Mar, [facility] [id number] [place] [address] Mar, [facility] [address] [id number] [place] [address] Feb, [address] [place] [address] Feb, Essential hypertension I10 ; Tachycardia R00.0 ; Family history of heart disease Z82.49 and Type 2 diabetes mellitus E11.9 [facility] [address] [id number] [place] [address] Feb, [facility] [address] [place] [address] Feb, [address] [place] [address] Feb, Type 2 diabetes mellitus E11 .[address] [place] [address] Feb, [facility] [address] [id number] [place] [address] Feb, [address] [place] [address] Feb, [facility] [address] [place] [address] Feb, [address] [place] [address] Feb, [facility] [address] [place] [address] Feb, Acute otitis externa of left ear, unspecified type H60.[address] [place] [address] Feb, Screening mammogram, encount er for Z12.[address] [place] [address] Feb, [address] [place] [address] Feb, [address] [place] [address] Feb, [address] [place] [address] 09 Feb, 2019 DDD (degenerative disc disea se), lumbar M51.36 [facility] [address] [id number] [place] [address] 08 Feb, 2019 Borderline personality disorder F60.3 ; Major depressive disorder, recurrent episode, moderate F33.1 and Panic disorder F41.0 [address] [place] [address] 08 Feb, [address] [place] [address] Feb, [address] [place] [address] 07 Feb, 2019 Depression, major, recurrent , moderate 296.32 [address] [place] [address] 07 Feb, 2019 [facility] [address] [facility] [place] [id number] 03 Feb, 2019 [facility] [address] [place] [id number] 0 3 Feb, [address] [place] [address] Feb, Acute bronchitis due to Myco plasma pneumoniae J20.0 [facility] [place] [address] [place] [address] Feb, Low back pain M54.5 [address] [place] [address] Feb, Pain in right hip M25.551 ; Pain in left hip M25.552 ; Other chronic pain G89.29 ; Vitamin D deficiency E55.9 ; Low back pain M54.5 ; Acute bronchitis due to Mycoplasma pneumoniae J20.0 and Type 2 diabetes mellitus E11.[address] [place] [address] Jan, [address] [place] [address] Jan, [address] [place] [address] Jan, [address] [place] [address] Jan, [address] [place] [address] Jan, [address] [place] [address] Jan, [address] [place] [address] Jan, Depression, major, recurrent , moderate 296.32 [facility] [address] [place] [address] Dec, Non-intractable vomiting wit h nausea, unspecified vomiting type R11.[address] [place] [address] Dec, Encounter for immunization Z 23 [facility] [address] [place] [address] Dec, [facility] [address] [place] [address] Dec, [facility] [address] [facility] [id number] [address] [place] [address] Dec, Acute diffuse otitis externa of left ear H60.312 [facility] [address] [facility] [id number] [place] [address] Dec, Borderline personality disorder F60.3 ; Major depressive disorder, recurrent episode, moderate F33.1 and Panic disorder F41.0 [facility] [address] [place] [address] Dec, Depression, major, recurrent , moderate 296.32 [facility] [address] [place] [address] Dec, Open wound of left great toe , initial encounter S91.102A ; Oral pain K13.79 ; Type 2 diabetes mellitus E11.9 and Depression, major, recurrent, moderate 296.32 [facility] [address] [place] [address] Nov, [facility] [address] [place] [address] Nov, [address] [place] [address] Nov, [facility] [place] [facility] [address] [place] [address] Nov, [facility] [address] [place] [address] Nov, [address] [place] [address] Nov, [facility] [address] [place] [address] Nov, Acute pain of right wrist M2 5.531 ; Contusion of left knee, initial encounter S80.02XA ; Open wound of left great toe, initial encounter S91.102A and Fall, initial encounter W19.XXXA [address] [place] [address] Nov, Depression, major, recurrent , moderate 296.[address] [place] [address] 09 Nov, 2018 Oral pain K13.79 ; Excessive cerumen in left ear canal H61.22 ; Impetigo L01.00 and Dyspnea R06.[address] [place] [address] Nov, [facility] [address] [facility] [id number] [address] [place] [address] Nov, Acute diffuse otitis externa of left ear H60.312 [facility] [address] [id number] [place] [address] Nov, Borderline personality disorder F60.3 ; Major depressive disorder, recurrent episode, moderate F33.1 and Panic disorder F41.0 [address] [place] [address] Oct, [address] [place] [address] Oct, [address] [place] [address] Oct, Depression, major, recurrent , moderate 296.32 [facility] [address] [place] [address] Oct, Acute swimmer's ear of left side H60.332 [facility] [id number] [place] [address] Sep, Major depressive disorder, recurrent epi sode, moderate F33.1 ; Borderline personality disorder F60.3 and Panic disorder F41.[address] [place] [address] Sep, [address] [place] [address] Sep, [facility] [address] [id number] [place] [address] Sep, [facility] [address] [id number] [place] [address] Sep, [facility] [address] [id number] [place] [address] Sep, [address] [place] [address] Sep, Depression, major, recurrent , moderate 296.32 [facility] [address] [id number] [place] [address] Sep, [address] [place] [address] Sep, [address] [place] [address] Aug, [address] [place] [address] Aug, [address] [place] [address] Aug, Depression, major, recurrent , moderate 296.32 [facility] [address] [id number] [place] [address] Aug, Major depressive disorder, recurrent epi sode, moderate F33.1 ; Panic disorder F41.0 and Borderline personality disorder F60.[address] [place] [address] Aug, Anxiety F41.9 ; Type 2 diabe nadine mellitus E11.9 ; Mixed incontinence urge and stress N39.46 ; Screening mammogram, encounter for Z12.31 and Morbid obesity E66.[address] [place] [address] Aug, Type 2 diabetes mellitus E11 .[address] [place] [address] Aug, [facility] [address] [place] [address] Aug, Scalp cyst L72.9 and Morbid obesity E66.01 [facility] [address] [place] [address] Aug, [facility] [address] [id number] [place] [address] Jul, Major depressive disorder, recurrent epi sode, moderate F33.1 ; Panic disorder F41.0 and Borderline personality disorder F60.3 [facility] [address] [place] [address] Jul, [address] [place] [address] Jul, [facility] [address] [place] [address] Jul, [address] [place] [address] Jul, [facility] [address] [place] [address] Jul, [address] [place] [address] Jul, Depression, major, recurrent , moderate 296.32 [facility] [address] [place] [address] June, Type 2 diabetes mellitus E11 .9 ; Morbid (severe) obesity due to excess calories E66.01 and Body mass index (BMI) of 40.0-44.9 in adult Z68.41 [facility] [place] [address] [place] [address] June, [facility] [address] [place] [address] June, [facility] [address] [place] [address] June, Type 2 diabetes mellitus E11 .9 [facility] [place] [address] [place] [address] June, Type 2 diabetes mellitus E11 .9 and Morbid obesity E66.01 [facility] [place] [address] [place] [address] June, [facility] [place] [address] [place] [address] June, [facility] [place] [address] [place] [address] June, [facility] [place] [address] [place] [address] June, Morbid obesity E66.01 [facility] [address] [place] [address] May, [facility] [address] [place] [address] May, [facility] [address] [place] [address] May, [facility] [address] [place] [address] May, Hypothyroidism E03.9 ; Type 2 diabetes mellitus E11.9 and Morbid obesity E66.01 [facility] [place] [address] [place] [address] May, Morbid obesity E66.01 [facility] [address] [id number] [place] [address] May, Peripheral edema R60.9 [facility] [address] [id number] [place] [address] May, Peripheral edema R60.9 ; Weight gain R63 .5 ; Shortness of breath R06.02 and Morbid obesity E66.01 [facility] [place] [facility] [address] [place] [address] May, Pedal edema R60.0 and Morbid obesity E66.01 [facility] [address] [place] [address] May, [facility] [address] [place] [address] May, [facility] [place] [address] [place] [address] May, [facility] [address] [facility] [id number] [address] [place] [address] Apr, Bilateral lower extremity ed maria del rosario R60.0 ; Morbid obesity E66.01 and Weight gain R63.5 [facility] [address] [place] [address] Apr, [facility] [place] [address] [place] [address] Apr, [facility] [place] [address] [place] [address] Apr, Migraine with aura and witho ut status migrainosus, not intractable G43.109 [facility] [address] [place] [address] Apr, [facility] [address] [place] [address] Apr, [facility] [place] [address] [place] [address] Apr, [facility] [place] [address] [place] [address] Apr, [facility] [address] [place] [address] Apr, [facility] [place] [address] [place] [address] Apr, Type 2 diabetes mellitus E11 .9 ; Pain in right knee M25.561 ; Other chronic pain G89.29 ; Pain in right shoulder M25.511 ; Morbid obesity E66.01 and Diabetic polyneuropathy associated with type 2 diabetes mellitus E11.42 [facility] [address] [place] [address] Apr, [facility] [address] [facility] [id number] [address] [place] [address] Apr, [facility] [place] [facility] [address] [place] [address] Mar, Open wound of right foot, in itial encounter S91.301A and Morbid obesity E66.01 [facility] [address] [place] [address] Mar, Dysuria R30.0 and Painful ur ination R30.9 [facility] [address] [place] [address] 07 Mar, 2018 Depression, major, recurrent , moderate 296.32 [address] [place] [address] Mar, [address] [place] [address] Mar, [place] [id number] [place] [address] Feb, Dental examination Z01.20 [place] [id number] [place] [address] Nov, [place] [address] [address] Nov, [place] [address] [address] 08 Mar, 2015 Major depressive disorder, recurrent epi sode, moderate F33.1 ; Panic disorder F41.0 and Borderline personality disorder F60.3 [facility] [id number] [place] [address] Sep, Depression, major, recurrent, moderate 2 96.32 ; Agoraphobia with panic disorder 300.21 and Borderline personality disorder 301.83 [facility] [id number] [place] [address] Aug, Depression, major, recurrent, moderate 2 96.32 ; Panic disorder without agoraphobia 300.01 and Borderline personality disorder 301.83 [facility] [id number] [place] [address] 16 Jul, 2014 Depression, major, recurrent, moderate 2 96.32 ; Agoraphobia with panic disorder 300.21 and Posttraumatic stress disorder 309.81 [facility] [id number] [place] [address] 30 May, 2014 [facility] [address] [address] 14 May, 2014 [facility] [address] [address] May, [facility] [address] [address] Apr, [facility] [id number] [place] [address] Apr, [facility] [address] [address] Apr, [facility] [id number] [place] [address] Apr, [facility] [address] [address] Mar, [facility] [id number] [place] [address] Mar, [facility] [address] [address] Mar, [facility] [id number] [place] [address] Mar, [facility] [id number] [place] [address] Feb, [facility] [id number] [place] [address] Feb, [facility] [address] [id number] [place] [address] Jan, [facility] [address] [id number] [place] [address] Jan, [facility] [address] [id number] [place] [address] Jan, [facility] [address] [id number] [place] [address] Jan, [facility] [address] [id number] [place] [id number] Dec, [facility] [address] [id number] [place] [id number] Dec, [facility] [id number] [place] [address] Dec, [facility] [address] [id number] [place] [address] Dec, [facility] [address] [id number] [place] [address] Dec, [facility] [address] [id number] [place] [address] Nov, [facility] [address] [id number] [place] [address] Nov, [facility] [address] [id number] [place] [address] Nov, [facility] [address] [id number] [place] [address] Nov, [facility] [id number] [place] [address] Nov, [facility] [address] [id number] [place] [address] Nov, [facility] [address] [id number] [place] [address] Nov, [facility] [address] [id number] [place] [address] Nov, [facility] [address] [id number] [place] [address] Oct, [facility] [address] [id number] [place] [address] Oct, [facility] [address] [id number] [place] [address] Sep, [facility] [address] [id number] [place] [address] Sep, [facility] [address] [id number] [place] [address] Sep, [facility] [address] [id number] [place] [address] Sep, [facility] [address] [id number] [place] [address] Sep, [facility] [address] [id number] [place] [address] Sep, [facility] [address] [id number] [place] [address] Jul, [facility] [address] [id number] [place] [address] Jul, [facility] [address] [id number] [place] [address] June, [facility] [address] [id number] [place] [address] June, [facility] [address] [id number] [place] [address] June, [facility] [address] [id number] [place] [address] June, [facility] [address] [id number] [place] [address] May, [facility] [address] [id number] [place] [address] May, [facility] [address] [id number] [place] [address] May, [facility] [address] [id number] [place] [address] May, [facility] [address] [id number] [place] [address] Apr, [facility] [address] [id number] [place] [address] Apr, [facility] [address] [id number] [place] [address] Mar, [facility] [address] [id number] [place] [address] Mar, [facility] [address] [id number] [place] [address] Feb, [facility] [address] [id number] [place] [address] Feb, [facility] [address] [id number] [place] [address] Feb, [facility] [address] [id number] [place] [address] Feb, [facility] [address] [id number] [place] [address] Dec, [facility] [address] [id number] [place] [address] Dec, [facility] [address] [id number] [place] [address] Dec, [facility] [address] [id number] [place] [address] Dec, [facility] [address] [id number] [place] [address] Nov, [facility] [address] [id number] [place] [address] Nov, [facility] [address] [id number] [place] [address] 16 Nov, 2012 [facility] [address] [id number] [place] [address] 16 Nov, 2012 [facility] [address] [id number] [place] [address] 23 Oct, 2012 [facility] [address] [id number] [place] [address] 16 Oct, 2012 [facility] [address] [id number] [place] [address] 10 Oct, 2012 [facility] [address] [id number] [place] [address] Oct, [facility] [address] [id number] [place] [address] Aug, [facility] [address] [id number] [place] [address] Aug, [facility] [address] [id number] [place] [address] Aug, [facility] [address] [id number] [place] [address] Aug, [facility] [address] [id number] [place] [address] Aug, [facility] [address] [id number] [place] [address] Jul, [facility] [address] [id number] [place] [address] June, [facility] [address] [id number] [place] [address] May, [facility] [id number] [place] [address] 14 Apr, 2012 [facility] [address] [id number] [place] [address] 13 Mar, 2012 [facility] [address] [id number] [place] [address] Mar, [facility] [address] [id number] [place] [address] Jan, [facility] [address] [id number] [place] [address] Jan, [facility] [address] [id number] [place] [address] Jan, [facility] [address] [id number] [place] [address] Jan, [facility] [address] [id number] [place] [address] Jan, [facility] [address] [id number] [place] [address] Jan, [facility] [address] [id number] [place] [address] Jan, [facility] [address] [id number] [place] [address] Jan, [facility] [address] [id number] [place] [address] Jan, [facility] [address] [id number] [place] [address] Jan, [facility] [address] [id number] [place] [address] Dec, [facility] [address] [id number] [place] [address] Dec, [facility] [address] [id number] [place] [address] Dec, [facility] [address] [id number] [place] [address] Dec, [facility] [address] [id number] [place] [address] Dec, [facility] [address] [id number] [place] [address] Dec, [facility] [address] [id number] [place] [address] Nov, [facility] [address] [id number] [place] [address] Nov, [facility] [address] [id number] [facility] [address] Oct, [facility] [address] [id number] [facility] [address] Oct, [facility] [address] [id number] [facility] [address] Oct, [facility] [address] [id number] [place] [address] Oct, [facility] [address] [id number] [place] [address] Sep, [facility] [address] [id number] [place] [address] Sep, [facility] [address] [id number] [place] [address] Aug, [facility] [address] [id number] [place] [address] Aug, [facility] [address] [id number] [place] [address] Aug, [facility] [address] [id number] [place] [address] Aug, [facility] [address] [id number] [place] [address] Aug, [facility] [address] [id number] [place] [address] Aug, [facility] [address] [id number] [place] [address] Jul, [facility] [address] [id number] [place] [address] Jul, [facility] [address] [id number] [place] [address] June, [facility] [address] [id number] [place] [address] June, [facility] [address] [id number] [place] [address] May, [facility] [address] [id number] [place] [address] May, [facility] [address] [id number] [place] [address] May, [facility] [address] [id number] [place] [address] May, [facility] [address] [id number] [place] [address] Apr, [facility] [address] [id number] [place] [address] Apr, [facility] [address] [id number] [place] [address] Apr, [facility] [address] [id number] [place] [address] Apr, [facility] [address] [id number] [place] [address] Mar, [facility] [address] [id number] [place] [address] Mar, [facility] [address] [id number] [place] [address] Feb, [facility] [address] [id number] [place] [address] Feb, [facility] [address] [id number] [place] [address] Feb, [facility] [address] [id number] [place] [address] Feb, [facility] [address] [id number] [place] [address] Feb, [facility] [address] [id number] [place] [address] Jan, [facility] [address] [id number] [place] [address] Dec, [facility] [id number] [place] [address] Dec, [facility] [address] [id number] [place] [address] Dec, [facility] [id number] [place] [address] Nov, [facility] [id number] [place] [address] Nov, [facility] [address] [address] Aug, [facility] [id number] [place] [address] Jan, [facility] [id number] [place] [address] Dec, [facility] [id number] [place] [address] Nov, [facility] [id number] [place] [address] Jan, [facility] [id number] [place] [address] Jan, IMMUNIZATIONS No Known Immunizations SOCIAL HISTORY [...] 3 Hospitalization History [facility] Hospitalization History lt breast surgery(cancer)
--- OUTSIDE RECORDS SUMMARY | 2019-05-02 19:48 | XMS REPORT ---
Author Author AVERY, Shannon TALBERT [facility] MA[facility] Address [address] [place] [address] Care Team Providers Care Real Property Evaluator Name Role Phone NITISH VARELA Unavailable PROBLEMS Type Condition ICD9-CM Code [id number] Code Onset Dates Condition S tatus SNOMED Code Problem Arthritis M19.90 Active 4731837 Problem Osteoarthritis M19.90 Active 74330 5006 Problem Major depression F32.9 Active 370 409454 Problem Essential hypertension I10 Active 55377368 Problem GERD (gastroesophageal reflux disease) K21.9 Active 067868375 Problem Insomnia G47.00 Active 168424040 Problem Anxiety F41.9 Active 13337131 Problem Major depressive disorder, recurrent episode, moderate F33.1 Active 486947530 Problem Hypothyroidism E03.9 Active 60068 008 Problem Borderline personality disorder F60.3 Active 90874608 Problem Migraine G43.909 Active 20526000 Problem Morbid (severe) obesity due to excess calories E66 .01 Active 308699793 Problem IZABEL on CPAP G47.33 Active 69620295 Problem Mixed incontinence urge and stress N39.46 Active 412646252 Problem Spinal stenosis M48.00 Active 7610 7001 Problem Open wound of right foot, initial encounter S91.30 1A Active [id number] Problem Body mass index (BMI) of 40.0-44.9 in adult Z68.41 Active 479524733 Problem Breast cancer C50.919 Active 571874 009 Problem Panic disorder F41.0 Active 57099 1005 Problem Other chronic pain G89.29 Active 8 5674299 Problem Type 2 diabetes mellitus E11.9 Activ e 06743085 Problem Diabetic polyneuropathy associated with type 2 d iabetes mellitus E11.42 Active 22695802 Problem Migraine with aura and without status migrainosu s, not intractable G43.109 Active 1560150 Problem Functional urinary incontinence R39.81 Active 327280528 ALLERGIES No Information ENCOUNTERS Encounter Location Date Diagnosis [facility] [address] [id number] [address] [place] [address] Nov, [facility] [address] [address] Oct, [address] [address] Oct, Depression, major, recurrent, moderate 2 96.32 [facility] [address] [facility] [place] [address] Oct, Acute swimmer's ear of left side H60.332 [facility] [address] [id number] [address] [place] [address] Sep, Major depressive disorder, r ecurrent episode, moderate F33.1 ; Borderline personality disorder F60.3 and Panic disorder F41.0 [facility] [address] [address] Sep, [address] [address] Sep, [facility] [address] [id number] [address] [place] [address] Sep, [facility] [address] [facility] [id number] [address] [place] [address] Sep, [facility] [address] [facility] [id number] [address] [place] [address] Sep, [address] [address] Sep, Depression, major, recurrent, moderate 2 96.32 [facility] [address] [facility] [id number] [address] [place] [address] Sep, [facility] [address] [address] Sep, [facility] [address] [address] Aug, [address] [address] Aug, [facility] [address] [address] Aug, Depression, major, recurrent, moderate 2 96.32 [facility] [address] [facility] [id number] [address] [address] Aug, Major depressive disorder, r ecurrent episode, moderate F33.1 ; Panic disorder F41.0 and Borderline personality disorder F60.[address] [address] Aug, Anxiety F41.9 ; Type 2 diabetes mellitus E11.9 ; Mixed incontinence urge and stress N39.46 ; Screening mammogram, encounter for Z12.31 and Morbid obesity E66.[address] [address] Aug, Type 2 diabetes mellitus E11.[address] [address] Aug, [address] [address] Aug, Scalp cyst L72.9 and Morbid obesity E66. [address] [address] Aug, [facility] [address] [facility] [id number] [address] [place] [address] Jul, Major depressive disorder, r ecurrent episode, moderate F33.1 ; Panic disorder F41.0 and Borderline personality disorder F60.[address] [address] Jul, [address] [address] Jul, [address] [address] Jul, [address] [address] Jul, [address] [address] Jul, [address] [address] Jul, Depression, major, recurrent, moderate 2 96.32 [facility] [address] [place] [address] June, Type 2 diabetes mellitus E11.9 ; Morbid (severe) obesity due to excess calories E66.01 and Body mass index (BMI) of 40.0-44.9 in adult Z68.41 [facility] [address] [place] [address] June, [facility] [address] [place] [address] June, [facility] [address] [place] [address] June, Type 2 diabetes mellitus E11.9 [facility] [address] [place] [address] June, Type 2 diabetes mellitus E11.9 and Morbi d obesity E66.01 [facility] [address] [place] [address] June, [facility] [address] [place] [address] June, [facility] [address] [place] [address] June, [facility] [address] [place] [address] June, Morbid obesity E66.01 [facility] [address] [place] [address] May, [facility] [address] [address] May, [facility] [address] [place] [address] May, [facility] [address] [place] [address] May, Hypothyroidism E03.9 ; Type 2 diabetes m ellitus E11.9 and Morbid obesity E66.01 [facility] [address] [place] [address] May, Morbid obesity E66.01 [facility] [address] [facility] [id number] [address] [place] [address] May, Peripheral edema R60.9 [facility] [address] [id number] [address] [place] [address] May, Peripheral edema R60.9 ; Fadi ght gain R63.5 ; Shortness of breath R06.02 and Morbid obesity E66.01 [facility] [address] [facility] [address] [facility] [place] [address] May, Pedal edema R60.0 and Morbid obesity E66 .01 [facility] [address] [place] [address] May, [address] [address] May, [address] [address] May, [facility] [address] [facility] [id number] [address] [place] [address] Apr, Bilateral lower extremity ed maria del rosario R60.0 ; Morbid obesity E66.01 and Weight gain R63.5 [facility] [address] [address] Apr, [facility] [address] [address] Apr, [address] [address] Apr, Migraine with aura and without status mi grainosus, not intractable G43.109 [facility] [address] [address] Apr, [facility] [address] [address] Apr, [address] [address] Apr, [address] [address] Apr, [address] [address] Apr, [address] [address] Apr, Type 2 diabetes mellitus E11.9 ; Pain in right knee M25.561 ; Other chronic pain G89.29 ; Pain in right shoulder M25.511 ; Morbid obesity E66.01 and Diabetic polyneuropathy associated with type 2 diabetes mellitus E11.[address] [address] Apr, [facility] [address] [facility] [id number] [address] [place] [address] Apr, [facility] [address] [facility] [address] Mar, Open wound of right foot, initial encoun ter S91.301A and Morbid obesity E66.01 [facility] [address] [facility] [place] [address] 09 Mar, 2018 Dysuria R30.0 and Painful urination R30. [address] [address] Mar, Depression, major, recurrent, moderate [address] [address] Mar, [address] [address] 04 Mar, 2018 [facility] [address] [place] [id number] [address] [place] [address] Feb, Dental examination Z01.20 [place] [address] [facility] [id number] [address] [place] [address] Nov, [place] [address] [facility] [id number] [address] [place] [address] Nov, [place] [address] [place] [id number] [address] [place] [address] 08 Mar, 2015 Major depressive disorder, r ecurrent episode, moderate F33.1 ; Panic disorder F41.0 and Borderline personality disorder F60.3 [place] [address] [facility] [id number] [address] [place] [address] Sep, Depression, major, recurrent , moderate 296.32 ; Agoraphobia with panic disorder 300.21 and Borderline personality disorder 301.83 [facility] [address] [facility] [id number] [address] [place] [address] Aug, Depression, major, recurrent , moderate 296.32 ; Panic disorder without agoraphobia 300.01 and Borderline personality disorder 301.83 [facility] [address] [facility] [id number] [address] [place] [address] Jul, Depression, major, recurrent , moderate 296.32 ; Agoraphobia with panic disorder 300.21 and Posttraumatic stress disorder 309.81 [facility] [address] [facility] [id number] [address] [place] [address] 30 May, 2014 [facility] [address] [facility] [id number] [address] [place] [address] 14 May, 2014 [facility] [address] [place] [id number] [place] [address] May, [facility] [address] [facility] [id number] [address] [place] [address] Apr, [facility] [address] [place] [id number] [place] [address] Apr, [facility] [address] [facility] [id number] [address] [place] [address] Apr, [facility] [address] [facility] [id number] [address] [place] [address] Apr, [facility] [address] [facility] [id number] [address] [place] [address] Mar, [facility] [address] [facility] [id number] [address] [place] [address] Mar, [facility] [address] [facility] [id number] [address] [place] [address] Mar, [facility] [address] [place] [id number] [address] [place] [address] Mar, [facility] [address] [id number] [address] [place] [address], [place] [address] Feb, [facility] [address] [id number] [address] [place] [address], [place] [address] Feb, [facility] [address] [id number] [address] [place] [address], [place] [address] Jan, [facility] [address] [id number] [address] [place] [address], [place] [address] Jan, [facility] [address] [id number] [address] [place] [address], [place] [address] Jan, [facility] [address] [id number] [address] [place] [address], [place] [address] Jan, [facility] [address] [id number] [address] [place] [id number] Dec, [facility] [address] [id number] [address] [place] [id number] Dec, [facility] [address] [id number] [address] [place] [address], [place] [address] Dec, [facility] [address] [id number] [address] [place] [address] Dec, [facility] [address] [id number] [address] [place] [address] Dec, [facility] [address] [id number] [address] [place] [address] Nov, [facility] [address] [id number] [address] [place] [address], [place] [address] Nov, [facility] [address] [id number] [address] [place] [address], [place] [address] Nov, [facility] [address] [id number] [address] [place] [address] Nov, [facility] [address] [id number] [address] [place] [address] Nov, [facility] [address] [id number] [address] [place] [address], [place] [address] Nov, [facility] [address] [id number] [address] [place] [address], [place] [address] Nov, [facility] [address] [id number] [address] [place] [address], [place] [address] Nov, [facility] [address] [id number] [address] [place] [address], [place] [address] Oct, [facility] [address] [id number] [address] [place] [address], [place] [address] Oct, [facility] [address] [id number] [address] [place] [address], [place] [address] Sep, [facility] [address] [id number] [address] [place] [address], [place] [address] Sep, [facility] [address] [id number] [address] [place] [address], [place] [address] Sep, [facility] [address] [id number] [address] [place] [address], [place] [address] Sep, [facility] [address] [id number] [address] [place] [address], [place] [address] Sep, [facility] [address] [id number] [address] [place] [address], [place] [address] Sep, [facility] [address] [id number] [address] [place] [address], [place] [address] Jul, [facility] [address] [id number] [address] [place] [address], [place] [address] Jul, [facility] [address] [id number] [address] [place] [address], [place] [address] June, [facility] [address] [id number] [address] [place] [address], [place] [address] June, [facility] [address] [id number] [address] [place] [address], [place] [address] June, [facility] [address] [id number] [address] [place] [address], [place] [address] June, [facility] [address] [id number] [address] [place] [address], [place] [address] May, [facility] [address] [id number] [address] [place] [address], [place] [address] May, [facility] [address] [id number] [address] [place] [address], [place] [address] May, [facility] [address] [id number] [address] [place] [address], [place] [address] May, [facility] [address] [id number] [address] [place] [address], [place] [address] Apr, [facility] [address] [id number] [address] [place] [address], [place] [address] Apr, [facility] [address] [id number] [address] [place] [address], [place] [address] Mar, [facility] [address] [id number] [address] [place] [address], [place] [address] Mar, [facility] [address] [id number] [address] [place] [address], [place] [address] Feb, [facility] [address] [id number] [address] [place] [address], [place] [address] Feb, [facility] [address] [id number] [address] [place] [address], [place] [address] Feb, [facility] [address] [id number] [address] [place] [address], [place] [address] Feb, [facility] [address] [id number] [address] [place] [address], [place] [address] Dec, [facility] [address] [id number] [address] [place] [address], [place] [address] Dec, [facility] [address] [id number] [address] [place] [address], [place] [address] Dec, [facility] [address] [id number] [address] [place] [address], [place] [address] Dec, [facility] [address] [id number] [address] [place] [address], [place] [address] Nov, [facility] [address] [id number] [address] [place] [address], [place] [address] Nov, [facility] [address] [id number] [address] [place] [address], [place] [address] Nov, [facility] [address] [id number] [address] [place] [address], [place] [address] 16 Nov, 2012 [facility] [address] [id number] [address] [place] [address], [place] [address] 23 Oct, 2012 [facility] [address] [id number] [address] [place] [address], [place] [address] 16 Oct, 2012 [facility] [address] [id number] [address] [place] [address], [place] [address] 10 Oct, 2012 [facility] [address] [id number] [address] [place] [address], [place] [address] Oct, [facility] [address] [id number] [address] [place] [address], [place] [address] 31 Aug, 2012 [facility] [address] [id number] [address] [place] [address], [place] [address] Aug, [facility] [address] [id number] [address] [place] [address], [place] [address] Aug, [facility] [address] [id number] [address] [place] [address], [place] [address] Aug, [facility] [address] [id number] [address] [place] [address], [place] [address] Aug, [facility] [address] [id number] [address] [place] [address], [place] [address] Jul, [facility] [address] [id number] [address] [place] [address], [place] [address] June, [facility] [address] [id number] [address] [place] [address], [place] [address] 10 May, 2012 [facility] [address] [id number] [address] [place] [address], [place] [address] Apr, [facility] [address] [id number] [address] [place] [address], [place] [address] 13 Mar, 2012 [facility] [address] [id number] [address] [place] [address], [place] [address] Mar, [facility] [address] [id number] [address] [place] [address], [place] [address] Jan, [facility] [address] [id number] [address] [place] [address], [place] [address] Jan, [facility] [address] [id number] [address] [place] [address], [place] [address] Jan, [facility] [address] [id number] [address] [place] [address], [place] [address] Jan, [facility] [address] [id number] [address] [place] [address], [place] [address] Jan, [facility] [address] [id number] [address] [place] [address], [place] [address] Jan, [facility] [address] [id number] [address] [place] [address], [place] [address] Jan, [facility] [address] [id number] [address] [place] [address], [place] [address] Jan, [facility] [address] [id number] [address] [place] [address], [place] [address] Jan, [facility] [address] [id number] [address] [place] [address], [place] [address] Jan, [facility] [address] [id number] [address] [place] [address], [place] [address] Dec, [facility] [address] [id number] [address] [place] [address], [place] [address] Dec, [facility] [address] [id number] [address] [place] [address], [place] [address] Dec, [facility] [address] [id number] [address] [place] [address], [place] [address] Dec, [facility] [address] [id number] [address] [place] [address], [place] [address] Dec, [facility] [address] [id number] [address] [place] [address], [place] [address] Dec, [facility] [address] [id number] [address] [place] [address], [place] [address] Nov, [facility] [address] [id number] [address] [place] [address], [place] [address] Nov, [facility] [address] [id number] [address] [place] [address], [place] [address] Oct, [facility] [address] [id number] [address] [place] [address], [place] [address] Oct, [facility] [address] [id number] [address] [place] [address], [place] [address] Oct, [facility] [address] [id number] [address] [place] [address], [place] [address] Oct, [facility] [address] [id number] [address] [place] [address], [place] [address] Sep, [facility] [address] [id number] [address] [place] [address], [place] [address] Sep, [facility] [address] [id number] [address] [place] [address], [place] [address] Aug, [facility] [address] [id number] [address] [place] [id number] Aug, [facility] [address] [id number] [address] [place] [address], [place] [address] Aug, [facility] [address] [id number] [address] [place] [address], [place] [address] Aug, [facility] [address] [id number] [address] [place] [address], [place] [address] Aug, [facility] [address] [id number] [address] [place] [address], [place] [address] Aug, [facility] [address] [id number] [address] [place] [address], [place] [address] Jul, [facility] [address] [id number] [address] [place] [address], [place] [address] Jul, [facility] [address] [id number] [address] [place] [address], [place] [address] June, [facility] [address] [id number] [address] [place] [address], [place] [address] June, [facility] [address] [id number] [address] [place] [address], [place] [address] May, [facility] [address] [id number] [address] [place] [address], [place] [address] May, [facility] [address] [id number] [address] [place] [address], [place] [address] 05 May, 2011 [facility] [address] [id number] [address] [place] [address], [place] [address] 04 May, 2011 [facility] [address] [id number] [address] [place] [address], [place] [address] Apr, [facility] [address] [id number] [address] [place] [address], [place] [address] 15 Apr, 2011 [facility] [address] [id number] [address] [place] [address], [place] [address] Apr, [facility] [address] [id number] [address] [place] [address], [place] [address] Apr, [facility] [address] [id number] [address] [place] [address], [place] [address] Mar, [facility] [address] [id number] [place] [address], [place] [id number] Mar, [facility] [address] [id number] [place] [address], [place] [id number] Feb, [facility] [address] [id number] [place] [address], [place] [address] Feb, [facility] [address] [id number] [place] [address], [place] [id number] Feb, [facility] [address] [id number] [place] [address], [place] [id number] Feb, [facility] [address] [id number] [place] [address], [place] [id number] Feb, [facility] [address] [id number] [place] [address], [place] [id number] Jan, [facility] [address] [id number] [place] [address], [place] [id number] Dec, [facility] [address] [id number] [place] [address], [place] [id number] Dec, [facility] [address] [id number] [place] [address], [place] [id number] Dec, [facility] [address] [id number] [address] [place] [address], [place] [id number] Nov, [facility] [address] [id number] [address] [place] [address], [place] [address] Nov, [facility] [address] [id number] [address] [place] [address], [place] [id number] Aug, [facility] [address] [id number] [place] [address], [place] [id number] Jan, [facility] [address] [facility] [id number] [address] [place] [id number] Dec, [facility] [address] [facility] [id number] [address] [place] [id number] Nov, [facility] [address] [facility] [id number] [address] [place] [id number] Jan, [facility] [address] [facility] [id number] [address] [place] [id number] Jan, IMMUNIZATIONS No Known Immunizations SOCIAL HISTORY [...] breast Surgical History x 3 Hospitalization History [facility] [address] [place] [address] for back surge ry Hospitalization History lt breast surgery(cancer)
--- OUTSIDE RECORDS SUMMARY | 2019-05-02 19:48 | XMS REPORT ---
Author Author Shannon DUFF Organization [facility] Address [address] [place] [address] Care Team Providers Care Inspector Insulation Name Role Phone RICHA DUFF Unavailable PROBLEMS Type Condition ICD9-CM Code PPG54-WG Code Onset Dates Condition S tatus SNOMED Code Problem Arthritis M19.90 Active 9652872 Problem Osteoarthritis M19.90 Active 37519 5006 Problem Major depression F32.9 Active 370 892889 Problem Essential hypertension I10 Active 60307729 Problem GERD (gastroesophageal reflux disease) K21.9 Active 661600874 Problem Insomnia G47.00 Active 781575196 Problem Anxiety F41.9 Active 33872662 Problem Major depressive disorder, recurrent episode, moderate F33.1 Active 313334842 Problem Hypothyroidism E03.9 Active 27036 008 Problem Borderline personality disorder F60.3 Active 91203224 Problem Migraine G43.909 Active 85151170 Problem Morbid (severe) obesity due to excess calories E66 .01 Active 020114100 Problem IZABEL on CPAP G47.33 Active 87759355 Problem Mixed incontinence urge and stress N39.46 Active 845592654 Problem Spinal stenosis M48.00 Active 7610 7001 Problem Open wound of right foot, initial encounter S91.30 1A Active [id number] Problem Body mass index (BMI) of 40.0-44.9 in adult Z68.41 Active 213702161 Problem Breast cancer C50.919 Active 875151 009 Problem Panic disorder F41.0 Active 33641 1005 Problem Other chronic pain G89.29 Active 8 3449567 Problem Type 2 diabetes mellitus E11.9 Activ e 57383312 Problem Diabetic polyneuropathy associated with type 2 d iabetes mellitus E11.42 Active 80164582 Problem Migraine with aura and without status migrainosu s, not intractable G43.109 Active 6753926 Problem Functional urinary incontinence R39.81 Active [id number] ALLERGIES No Information ENCOUNTERS Encounter Location Date Diagnosis [facility] [address] [id number] [address] [place] [address] Nov, [facility] [address] [address] Oct, Depression, major, recurrent, moderate 2 96.32 [facility] [address] [facility] [address] Oct, Acute swimmer's ear of left side H60.332 [facility] [address] [id number] [address] [place] [address] Sep, Major depressive disorder, r ecurrent episode, moderate F33.1 ; Borderline personality disorder F60.3 and Panic disorder F41.0 [facility] [address] [place] [address] Sep, [facility] [address] [address] Sep, [facility] [address] [id number] [address] [place] [address] Sep, [facility] [address] [facility] [id number] [address] [place] [address] Sep, [facility] [address] [facility] [id number] [address] [place] [address] Sep, [facility] [address] [address] Sep, Depression, major, recurrent, moderate 2 96.32 [facility] [address] [facility] [id number] [address] [place] [address] Sep, [facility] [address] [address] Sep, [facility] [address] [address] Aug, [facility] [address] [address] Aug, [facility] [address] [address] Aug, Depression, major, recurrent, moderate 2 96.32 [facility] [address] [facility] [id number] [address] [address] Aug, Major depressive disorder, r ecurrent episode, moderate F33.1 ; Panic disorder F41.0 and Borderline personality disorder F60.[address] [address] Aug, Anxiety F41.9 ; Type 2 diabetes mellitus E11.9 ; Mixed incontinence urge and stress N39.46 ; Screening mammogram, encounter for Z12.31 and Morbid obesity E66.[address] [address] Aug, Type 2 diabetes mellitus E11.[address] [address] Aug, [address] [address] Aug, Scalp cyst L72.9 and Morbid obesity E66. [address] [address] Aug, [facility] [address] [facility] [id number] [address] [place] [address] Jul, Major depressive disorder, r ecurrent episode, moderate F33.1 ; Panic disorder F41.0 and Borderline personality disorder F60.[address] [address] Jul, [address] [address] Jul, [address] [address] Jul, [address] [address] Jul, [address] [address] Jul, [address] [address] Jul, Depression, major, recurrent, moderate [address] [address] June, Type 2 diabetes mellitus E11.9 ; Morbid (severe) obesity due to excess calories E66.01 and Body mass index (BMI) of 40.0-44.9 in adult Z68.41 [facility] [address] [place] [address] June, [facility] [address] [address] June, [facility] [address] [address] June, Type 2 diabetes mellitus E11.9 [facility] [address] [place] [address] June, Type 2 diabetes mellitus E11.9 and Morbi d obesity E66.01 [facility] [address] [place] [address] June, [facility] [address] [place] [address] June, [facility] [address] [place] [address] June, [facility] [address] [place] [address] June, Morbid obesity E66.01 [facility] [address] [place] [address] May, [facility] [address] [place] [address] May, [facility] [address] [address] May, [facility] [address] [address] May, Hypothyroidism E03.9 ; Type 2 diabetes m ellitus E11.9 and Morbid obesity E66.01 [facility] [address] [place] [address] May, Morbid obesity E66.01 [facility] [address] [facility] [id number] [address] [place] [address] May, Peripheral edema R60.9 [facility] [address] [facility] [id number] [address] [place] [address] 08 May, 2018 Peripheral edema R60.9 ; Fadi ght gain R63.5 ; Shortness of breath R06.02 and Morbid obesity E66.01 [facility] [address] [facility] [place] [address] May, Pedal edema R60.0 and Morbid obesity E66 .01 [facility] [address] [address] May, [facility] [address] [address] May, [address] [address] May, [facility] [address] [facility] [id number] [address] [place] [address] Apr, Bilateral lower extremity ed maria del rosario R60.0 ; Morbid obesity E66.01 and Weight gain R63.5 [facility] [address] [address] Apr, [facility] [address] [address] Apr, [facility] [address] [address] Apr, Migraine with aura and without status mi grainosus, not intractable G43.109 [facility] [address] [address] Apr, [facility] [address] [address] Apr, [facility] [address] [address] Apr, [facility] [address] [address] Apr, [facility] [address] [address] Apr, [facility] [address] [address] 07 Apr, 2018 Type 2 diabetes mellitus E11.9 ; Pain in right knee M25.561 ; Other chronic pain G89.29 ; Pain in right shoulder M25.511 ; Morbid obesity E66.01 and Diabetic polyneuropathy associated with type 2 diabetes mellitus E11.42 [facility] [address] [place] [address] Apr, [facility] [address] [facility] [id number] [address] [place] [address] Apr, [facility] [address] [facility] [place] [address] Mar, Open wound of right foot, initial encoun ter S91.301A and Morbid obesity E66.01 [facility] [address] [place] [facility] [place] [address] Mar, Dysuria R30.0 and Painful urination R30. [address] [address] Mar, Depression, major, recurrent, moderate [address] [address] Mar, [address] [address] Mar, [facility] [address] [address] Feb, Dental examination Z01.20 [facility] [address] [facility] [id number] [address] [place] [address] Nov, [facility] [address] [facility] [id number] [address] [place] [address] Nov, [facility] [address] [facility] [id number] [address] [place] [address] 08 Mar, 2015 Major depressive disorder, r ecurrent episode, moderate F33.1 ; Panic disorder F41.0 and Borderline personality disorder F60.3 [facility] [address] [facility] [id number] [address] [place] [address] Sep, Depression, major, recurrent , moderate 296.32 ; Agoraphobia with panic disorder 300.21 and Borderline personality disorder 301.83 [facility] [address] [id number] [address] [place] [address] Aug, Depression, major, recurrent , moderate 296.32 ; Panic disorder without agoraphobia 300.01 and Borderline personality disorder 301.83 [facility] [address] [id number] [address] [place] [address] 16 Jul, 2014 Depression, major, recurrent , moderate 296.32 ; Agoraphobia with panic disorder 300.21 and Posttraumatic stress disorder 309.81 [facility] [address] [id number] [address] [place] [address] 30 May, 2014 [facility] [address] [id number] [address] [place] [address] 14 May, 2014 [facility] [address] [facility] [id number] [address] [place] [address] May, [facility] [address] [facility] [id number] [address] [place] [address] Apr, [facility] [address] [facility] [id number] [address] [place] [address] Apr, [facility] [address] [facility] [id number] [address] [place] [address] Apr, [facility] [address] [facility] [id number] [address] [place] [address] Apr, [facility] [address] [facility] [id number] [address] [place] [address] Mar, [facility] [address] [facility] [id number] [address] [place] [address] Mar, [facility] [address] [facility] [id number] [address] [place] [address] Mar, [facility] [address] [facility] [id number] [address] [place] [address] Mar, [facility] [address] [facility] [id number] [address] [place] [address] Feb, [facility] [address] [id number] [address] [place] [address], [place] [address] Feb, [facility] [address] [id number] [address] [place] [address] Jan, [facility] [address] [id number] [address] [place] [address] Jan, [facility] [address] [id number] [address] [place] [address] Jan, [facility] [address] [id number] [address] [place] [address] Jan, [facility] [address] [id number] [address] [place] [id number] Dec, [facility] [address] [id number] [address] [place] [id number] Dec, [facility] [address] [id number] [address] [place] [address] Dec, [facility] [address] [id number] [address] [place] [address] Dec, [facility] [address] [id number] [address] [place] [address] Dec, [facility] [address] [id number] [address] [place] [address] Nov, [facility] [address] [id number] [address] [place] [address] Nov, [facility] [address] [id number] [address] [place] [address], [place] [address] Nov, [facility] [address] [id number] [address] [place] [address] Nov, [facility] [address] [id number] [address] [place] [address] Nov, [facility] [address] [id number] [address] [place] [address], [place] [address] Nov, [facility] [address] [id number] [address] [place] [address], [place] [address] Nov, [facility] [address] [id number] [address] [place] [address], [place] [address] Nov, [facility] [address] [id number] [address] [place] [address], [place] [address] Oct, [facility] [address] [id number] [address] [place] [address], [place] [address] Oct, [facility] [address] [id number] [address] [place] [address], [place] [address] Sep, [facility] [address] [id number] [address] [place] [address], [place] [address] Sep, [facility] [address] [id number] [address] [place] [address], [place] [address] Sep, [facility] [address] [id number] [address] [place] [address], [place] [address] Sep, [facility] [address] [id number] [address] [place] [address], [place] [address] Sep, [facility] [address] [id number] [address] [place] [address], [place] [address] Sep, [facility] [address] [id number] [address] [place] [address], [place] [address] Jul, [facility] [address] [id number] [address] [place] [address], [place] [address] Jul, [facility] [address] [id number] [address] [place] [address], [place] [address] June, [facility] [address] [id number] [address] [place] [address], [place] [address] June, [facility] [address] [id number] [address] [place] [address], [place] [address] June, [facility] [address] [id number] [address] [place] [address], [place] [address] June, [facility] [address] [id number] [address] [place] [address], [place] [address] May, [facility] [address] [id number] [address] [place] [address], [place] [address] May, [facility] [address] [id number] [address] [place] [address], [place] [address] May, [facility] [address] [id number] [address] [place] [address], [place] [address] May, [facility] [address] [id number] [address] [place] [address], [place] [address] Apr, [facility] [address] [id number] [address] [place] [address], [place] [address] Apr, [facility] [address] [id number] [address] [place] [address], [place] [address] Mar, [facility] [address] [id number] [address] [place] [address], [place] [address] Mar, [facility] [address] [id number] [address] [place] [address], [place] [address] Feb, [facility] [address] [id number] [address] [place] [address], [place] [address] Feb, [facility] [address] [id number] [address] [place] [address], [place] [address] Feb, [facility] [address] [id number] [address] [place] [address], [place] [address] Feb, [facility] [address] [id number] [address] [place] [address], [place] [address] Dec, [facility] [address] [id number] [address] [place] [address], [place] [address] Dec, [facility] [address] [id number] [address] [place] [address], [place] [address] 15 Dec, 2012 [facility] [address] [id number] [address] [place] [address], [place] [address] 15 Dec, 2012 [facility] [address] [id number] [address] [place] [address], [place] [address] Nov, [facility] [address] [id number] [address] [place] [address], [place] [address] Nov, [facility] [address] [id number] [address] [place] [address], [place] [address] 16 Nov, 2012 [facility] [address] [id number] [address] [place] [address], [place] [address] 16 Nov, 2012 [facility] [address] [id number] [address] [place] [address], [place] [address] 23 Oct, 2012 [facility] [address] [id number] [address] [place] [address], [place] [address] 16 Oct, 2012 [facility] [address] [id number] [address] [place] [address], [place] [address] 10 Oct, 2012 [facility] [address] [id number] [address] [place] [address], [place] [address] 03 Oct, 2012 [facility] [address] [id number] [address] [place] [address], [place] [address] Aug, [facility] [address] [id number] [address] [place] [address], [place] [address] Aug, [facility] [address] [id number] [address] [place] [address], [place] [address] Aug, [facility] [address] [id number] [address] [place] [address], [place] [address] Aug, [facility] [address] [id number] [address] [place] [address], [place] [address] Aug, [facility] [address] [id number] [address] [place] [address], [place] [address] Jul, [facility] [address] [id number] [address] [place] [address], [place] [address] June, [facility] [address] [id number] [address] [place] [address], [place] [address] May, [facility] [address] [id number] [address] [place] [address], [place] [address] 14 Apr, 2012 [facility] [address] [id number] [address] [place] [address], [place] [address] 13 Mar, 2012 [facility] [address] [id number] [address] [place] [address], [place] [address] Mar, [facility] [address] [id number] [address] [place] [address], [place] [address] Jan, [facility] [address] [id number] [address] [place] [address], [place] [address] Jan, [facility] [address] [id number] [address] [place] [address], [place] [address] Jan, [facility] [address] [id number] [address] [place] [address], [place] [address] Jan, [facility] [address] [id number] [address] [place] [address], [place] [address] Jan, [facility] [address] [id number] [address] [place] [address], [place] [id number] Jan, [facility] [address] [id number] [address] [place] [address], [place] [id number] Jan, [facility] [address] [id number] [address] [place] [address], [place] [id number] Jan, [facility] [address] [id number] [address] [place] [address], [place] [id number] Jan, [facility] [address] [id number] [address] [place] [address], [place] [id number] Jan, [facility] [address] [id number] [address] [place] [address], [place] [address] Dec, [facility] [address] [id number] [address] [place] [address], [place] [address] Dec, [facility] [address] [id number] [address] [place] [address], [place] [id number] Dec, [facility] [address] [id number] [address] [place] [address], [place] [address] Dec, [facility] [address] [id number] [address] [place] [address], [place] [id number] Dec, [facility] [address] [id number] [address] [place] [address], [place] [id number] Dec, [facility] [address] [id number] [address] [place] [address], [place] [address] Nov, [facility] [address] [id number] [address] [place] [address], [place] [address] Nov, [facility] [address] [id number] [address] [place] [address], [place] [address] Oct, [facility] [address] [id number] [address] [place] [address], [place] [address] Oct, [facility] [address] [id number] [address] [place] [address], [place] [address] Oct, [facility] [address] [id number] [address] [place] [address], [place] [address] Oct, [facility] [address] [id number] [address] [place] [address], [place] [address] Sep, [facility] [address] [id number] [address] [place] [address], [place] [address] Sep, [facility] [address] [id number] [address] [place] [address], [place] [id number] Aug, [facility] [address] [id number] [address] [place] [address], [place] [address] Aug, [facility] [address] [id number] [address] [place] [address], [place] [address] Aug, [facility] [address] [id number] [address] [place] [address], [place] [address] Aug, [facility] [address] [id number] [address] [place] [address], [place] [address] Aug, [facility] [address] [id number] [address] [place] [address], [place] [address] Aug, [facility] [address] [id number] [address] [place] [address], [place] [address] Jul, [facility] [address] [id number] [address] [place] [address], [place] [address] Jul, [facility] [address] [id number] [address] [place] [address], [place] [address] June, [facility] [address] [id number] [address] [place] [address], [place] [id number] June, [facility] [address] [id number] [address] [place] [address], [place] [address] May, [facility] [address] [id number] [address] [place] [address], [place] [id number] May, [facility] [address] [id number] [address] [place] [address], [place] [id number] May, [facility] [address] [id number] [address] [place] [address], [place] [address] May, [facility] [address] [id number] [address] [place] [address], [place] [id number] Apr, [facility] [address] [id number] [address] [place] [address], [place] [id number] 15 Apr, 2011 [facility] [address] [id number] [address] [place] [address], [place] [address] Apr, [facility] [address] [id number] [address] [place] [address], [place] [id number] Apr, [facility] [address] [id number] [address] [place] [address], [place] [id number] Mar, [facility] [address] [id number] [address] [place] [address], [place] [id number] Mar, [facility] [address] [id number] [address] [place] [address], [place] [id number] Feb, [facility] [address] [id number] [address] [place] [address], [place] [id number] Feb, [facility] [address] [id number] [address] [place] [address], [place] [id number] Feb, [facility] [address] [id number] [address] [place] [address], [place] [id number] Feb, [facility] [address] [id number] [address] [place] [address], [place] [address] Feb, [facility] [address] [id number] [address] [place] [address], [place] [id number] Jan, [facility] [address] [id number] [address] [place] [address], [place] [id number] Dec, [facility] [address] [id number] [address] [place] [id number] Dec, [facility] [address] [id number] [address] [place] [address], [place] [id number] Dec, [facility] [address] [id number] [address] [place] [id number] Nov, [facility] [address] [id number] [address] [place] [address], [place] [id number] Nov, [facility] [address] [id number] [address] [place] [address], [place] [id number] Aug, [facility] [address] [id number] [address] [place] [id number] 15 Jan, 2010 [facility] [address] [id number] [address] [place] [id number] Dec, [facility] [address] [facility] [id number] [address] [place] [id number] Nov, [facility] [address] [facility] [id number] [address] [place] [phone] Jan, [facility] [address] [facility] [id number] [address] [place] [phone] Jan, IMMUNIZATIONS No Known Immunizations SOCIAL HISTORY [...] breast Surgical History x [address] [facility] Hospitalization History lt breast surgery(cancer)
--- OUTSIDE RECORDS SUMMARY | 2019-05-02 19:48 | XMS REPORT ---
Author Author Shannon THORNTON Organization [facility] Address [address] [place] [address] Care Team Providers Care Rat Trapper Name Role Phone STEW THORNTON Unavailable PROBLEMS Type Condition ICD9-CM Code ZHD25-XN Code Onset Dates Condition S tatus SNOMED Code Problem Arthritis M19.90 Active 6635448 Problem Osteoarthritis M19.90 Active 56068 5006 Problem Major depression F32.9 Active 370 157205 Problem Essential hypertension I10 Active 51473347 Problem GERD (gastroesophageal reflux disease) K21.9 Active 777496412 Problem Insomnia G47.00 Active 396699747 Problem Anxiety F41.9 Active 36984425 Problem Major depressive disorder, recurrent episode, moderate F33.1 Active 491787259 Problem Hypothyroidism E03.9 Active 06878 008 Problem Borderline personality disorder F60.3 Active 51207062 Problem Migraine G43.909 Active 01962034 Problem Morbid (severe) obesity due to excess calories E66 .01 Active 023052123 Problem IZABEL on CPAP G47.33 Active 54599345 Problem Mixed incontinence urge and stress N39.46 Active 752977683 Problem Spinal stenosis M48.00 Active 7610 7001 Problem Open wound of right foot, initial encounter S91.30 1A Active [id number] Problem Body mass index (BMI) of 40.0-44.9 in adult Z68.41 Active 543025452 Problem Breast cancer C50.919 Active 330983 009 Problem Panic disorder F41.0 Active 62219 1005 Problem Other chronic pain G89.29 Active 8 6653898 Problem Type 2 diabetes mellitus E11.9 Activ e 35546919 Problem Diabetic polyneuropathy associated with type 2 d iabetes mellitus E11.42 Active 50500161 Problem Migraine with aura and without status migrainosu s, not intractable G43.109 Active 9488349 Problem Functional urinary incontinence R39.81 Active 250116163 ALLERGIES No Information ENCOUNTERS Encounter Location Date Diagnosis [facility] [address] [id number] [address] [place] [address] Nov, [facility] [address] [address] Oct, Depression, major, recurrent, moderate 2 96.32 [facility] [address] [facility] [place] [address] Oct, Acute swimmer's ear of left side H60.332 [facility] [address] [id number] [address] [place] [address] Sep, Major depressive disorder, r ecurrent episode, moderate F33.1 ; Borderline personality disorder F60.3 and Panic disorder F41.0 [facility] [address] [place] [address] Sep, [facility] [address] [address] Sep, [facility] [address] [id number] [address] [place] [address] Sep, [facility] [address] [facility] [id number] [address] [place] [address] Sep, [facility] [address] [facility] [id number] [address] [place] [address] Sep, [facility] [address] [address] Sep, Depression, major, recurrent, moderate 2 96.32 [facility] [address] [facility] [id number] [address] [place] [address] Sep, [facility] [address] [address] Sep, [facility] [address] [address] Aug, [facility] [address] [address] Aug, [facility] [address] [address] Aug, Depression, major, recurrent, moderate 2 96.32 [facility] [address] [facility] [id number] [address] [address] Aug, Major depressive disorder, r ecurrent episode, moderate F33.1 ; Panic disorder F41.0 and Borderline personality disorder F60.[address] [address] Aug, Anxiety F41.9 ; Type 2 diabetes mellitus E11.9 ; Mixed incontinence urge and stress N39.46 ; Screening mammogram, encounter for Z12.31 and Morbid obesity E66.[address] [address] Aug, Type 2 diabetes mellitus E11.[address] [address] Aug, [address] [address] Aug, Scalp cyst L72.9 and Morbid obesity E66. [address] [address] Aug, [facility] [address] [facility] [id number] [address] [place] [address] Jul, Major depressive disorder, r ecurrent episode, moderate F33.1 ; Panic disorder F41.0 and Borderline personality disorder F60.[address] [address] Jul, [address] [address] Jul, [address] [address] Jul, [address] [address] Jul, [address] [address] Jul, [address] [address] Jul, Depression, major, recurrent, moderate [address] [address] June, Type 2 diabetes mellitus E11.9 ; Morbid (severe) obesity due to excess calories E66.01 and Body mass index (BMI) of 40.0-44.9 in adult Z68.41 [facility] [address] [place] [address] June, [facility] [address] [address] June, [facility] [address] [address] June, Type 2 diabetes mellitus E11.9 [facility] [address] [place] [address] June, Type 2 diabetes mellitus E11.9 and Morbi d obesity E66.01 [facility] [address] [place] [address] June, [facility] [address] [place] [address] June, [facility] [address] [place] [address] June, [facility] [address] [place] [address] June, Morbid obesity E66.01 [facility] [address] [place] [address] May, [facility] [address] [place] [address] May, [facility] [address] [address] May, [facility] [address] [address] May, Hypothyroidism E03.9 ; Type 2 diabetes m ellitus E11.9 and Morbid obesity E66.01 [facility] [address] [place] [address] May, Morbid obesity E66.01 [facility] [address] [facility] [id number] [address] [place] [address] May, Peripheral edema R60.9 [facility] [address] [facility] [id number] [address] [place] [address] 08 May, 2018 Peripheral edema R60.9 ; Fadi ght gain R63.5 ; Shortness of breath R06.02 and Morbid obesity E66.01 [facility] [address] [facility] [place] [address] May, Pedal edema R60.0 and Morbid obesity E66 .01 [facility] [address] [address] May, [facility] [address] [address] May, [address] [address] May, [facility] [address] [facility] [id number] [address] [place] [address] Apr, Bilateral lower extremity ed maria del rosario R60.0 ; Morbid obesity E66.01 and Weight gain R63.5 [facility] [address] [address] Apr, [facility] [address] [address] Apr, [facility] [address] [address] Apr, Migraine with aura and without status mi grainosus, not intractable G43.109 [facility] [address] [address] Apr, [facility] [address] [address] Apr, [facility] [address] [address] Apr, [facility] [address] [address] Apr, [facility] [address] [address] Apr, [facility] [address] [address] 07 Apr, 2018 Type 2 diabetes mellitus E11.9 ; Pain in right knee M25.561 ; Other chronic pain G89.29 ; Pain in right shoulder M25.511 ; Morbid obesity E66.01 and Diabetic polyneuropathy associated with type 2 diabetes mellitus E11.42 [facility] [address] [place] [address] Apr, [facility] [address] [facility] [id number] [address] [place] [address] Apr, [facility] [address] [place] [facility] [place] [address] Mar, Open wound of right foot, initial encoun ter S91.301A and Morbid obesity E66.01 [facility] [address] [place] [facility] [place] [address] Mar, Dysuria R30.0 and Painful urination R30. [address] [address] Mar, Depression, major, recurrent, moderate [address] [address] Mar, [address] [address] Mar, [facility] [address] [address] Feb, Dental examination Z01.20 [facility] [address] [facility] [id number] [address] [place] [address] Nov, [facility] [address] [facility] [id number] [address] [place] [address] Nov, [facility] [address] [facility] [id number] [address] [place] [address] 08 Mar, 2015 Major depressive disorder, r ecurrent episode, moderate F33.1 ; Panic disorder F41.0 and Borderline personality disorder F60.3 [facility] [address] [facility] [id number] [address] [place] [address] Sep, Depression, major, recurrent , moderate 296.32 ; Agoraphobia with panic disorder 300.21 and Borderline personality disorder 301.83 [facility] [address] [id number] [address] [place] [address] Aug, Depression, major, recurrent , moderate 296.32 ; Panic disorder without agoraphobia 300.01 and Borderline personality disorder 301.83 [facility] [address] [id number] [address] [place] [address] 16 Jul, 2014 Depression, major, recurrent , moderate 296.32 ; Agoraphobia with panic disorder 300.21 and Posttraumatic stress disorder 309.81 [facility] [address] [id number] [address] [place] [address] 30 May, 2014 [facility] [address] [id number] [address] [place] [address] 14 May, 2014 [facility] [address] [facility] [id number] [address] [place] [address] May, [facility] [address] [facility] [id number] [address] [place] [address] Apr, [facility] [address] [facility] [id number] [address] [place] [address] Apr, [facility] [address] [facility] [id number] [address] [place] [address] Apr, [facility] [address] [facility] [id number] [address] [place] [address] Apr, [facility] [address] [facility] [id number] [address] [place] [address] Mar, [facility] [address] [facility] [id number] [address] [place] [address] Mar, [facility] [address] [facility] [id number] [address] [place] [address] Mar, [facility] [address] [facility] [id number] [address] [place] [address] Mar, [facility] [address] [facility] [id number] [address] [place] [address] Feb, [facility] [address] [id number] [address] [place] [address], [place] [address] Feb, [facility] [address] [id number] [address] [place] [address] Jan, [facility] [address] [id number] [address] [place] [address] Jan, [facility] [address] [id number] [address] [place] [address] Jan, [facility] [address] [id number] [address] [place] [address] Jan, [facility] [address] [id number] [address] [place] [id number] Dec, [facility] [address] [id number] [address] [place] [id number] Dec, [facility] [address] [id number] [address] [place] [address] Dec, [facility] [address] [id number] [address] [place] [address] Dec, [facility] [address] [id number] [address] [place] [address] Dec, [facility] [address] [id number] [address] [place] [address] Nov, [facility] [address] [id number] [address] [place] [address] Nov, [facility] [address] [id number] [address] [place] [address], [place] [address] Nov, [facility] [address] [id number] [address] [place] [address] Nov, [facility] [address] [id number] [address] [place] [address] Nov, [facility] [address] [id number] [address] [place] [address], [place] [address] Nov, [facility] [address] [id number] [address] [place] [address], [place] [address] Nov, [facility] [address] [id number] [address] [place] [address], [place] [address] Nov, [facility] [address] [id number] [address] [place] [address], [place] [address] Oct, [facility] [address] [id number] [address] [place] [address], [place] [address] Oct, [facility] [address] [id number] [address] [place] [address], [place] [address] Sep, [facility] [address] [id number] [address] [place] [address], [place] [address] Sep, [facility] [address] [id number] [address] [place] [address], [place] [address] Sep, [facility] [address] [id number] [address] [place] [address], [place] [address] Sep, [facility] [address] [id number] [address] [place] [address], [place] [address] Sep, [facility] [address] [id number] [address] [place] [address], [place] [address] Sep, [facility] [address] [id number] [address] [place] [address], [place] [address] Jul, [facility] [address] [id number] [address] [place] [address], [place] [address] Jul, [facility] [address] [id number] [address] [place] [address], [place] [address] June, [facility] [address] [id number] [address] [place] [address], [place] [address] June, [facility] [address] [id number] [address] [place] [address], [place] [address] June, [facility] [address] [id number] [address] [place] [address], [place] [address] June, [facility] [address] [id number] [address] [place] [address], [place] [address] May, [facility] [address] [id number] [address] [place] [address], [place] [address] May, [facility] [address] [id number] [address] [place] [address], [place] [address] May, [facility] [address] [id number] [address] [place] [address], [place] [address] May, [facility] [address] [id number] [address] [place] [address], [place] [address] Apr, [facility] [address] [id number] [address] [place] [address], [place] [address] Apr, [facility] [address] [id number] [address] [place] [address], [place] [address] Mar, [facility] [address] [id number] [address] [place] [address], [place] [address] Mar, [facility] [address] [id number] [address] [place] [address], [place] [address] Feb, [facility] [address] [id number] [address] [place] [address], [place] [address] Feb, [facility] [address] [id number] [address] [place] [address], [place] [address] Feb, [facility] [address] [id number] [address] [place] [address], [place] [address] Feb, [facility] [address] [id number] [address] [place] [address], [place] [address] Dec, [facility] [address] [id number] [address] [place] [address], [place] [address] Dec, [facility] [address] [id number] [address] [place] [address], [place] [address] 15 Dec, 2012 [facility] [address] [id number] [address] [place] [address], [place] [address] 15 Dec, 2012 [facility] [address] [id number] [address] [place] [address], [place] [address] Nov, [facility] [address] [id number] [address] [place] [address], [place] [address] Nov, [facility] [address] [id number] [address] [place] [address], [place] [address] 16 Nov, 2012 [facility] [address] [id number] [address] [place] [address], [place] [address] 16 Nov, 2012 [facility] [address] [id number] [address] [place] [address], [place] [address] 23 Oct, 2012 [facility] [address] [id number] [address] [place] [address], [place] [address] 16 Oct, 2012 [facility] [address] [id number] [address] [place] [address], [place] [address] 10 Oct, 2012 [facility] [address] [id number] [address] [place] [address], [place] [address] 03 Oct, 2012 [facility] [address] [id number] [address] [place] [address], [place] [address] Aug, [facility] [address] [id number] [address] [place] [address], [place] [address] Aug, [facility] [address] [id number] [address] [place] [address], [place] [address] Aug, [facility] [address] [id number] [address] [place] [address], [place] [address] Aug, [facility] [address] [id number] [address] [place] [address], [place] [address] Aug, [facility] [address] [id number] [address] [place] [address], [place] [address] Jul, [facility] [address] [id number] [address] [place] [address], [place] [address] June, [facility] [address] [id number] [address] [place] [address], [place] [address] May, [facility] [address] [id number] [address] [place] [address], [place] [address] 14 Apr, 2012 [facility] [address] [id number] [address] [place] [address], [place] [address] 13 Mar, 2012 [facility] [address] [id number] [address] [place] [address], [place] [address] Mar, [facility] [address] [id number] [address] [place] [address], [place] [address] Jan, [facility] [address] [id number] [address] [place] [address], [place] [address] Jan, [facility] [address] [id number] [address] [place] [address], [place] [address] Jan, [facility] [address] [id number] [address] [place] [address], [place] [address] Jan, [facility] [address] [id number] [address] [place] [address], [place] [address] Jan, [facility] [address] [id number] [address] [place] [address], [place] [address] Jan, [facility] [address] [id number] [address] [place] [address], [place] [address] Jan, [facility] [address] [id number] [address] [place] [address], [place] [address] Jan, [facility] [address] [id number] [address] [place] [address], [place] [address] Jan, [facility] [address] [id number] [address] [place] [address], [place] [address] Jan, [facility] [address] [id number] [address] [place] [address], [place] [address] Dec, [facility] [address] [id number] [address] [place] [address], [place] [address] Dec, [facility] [address] [id number] [address] [place] [address], [place] [address] Dec, [facility] [address] [id number] [address] [place] [address], [place] [address] Dec, [facility] [address] [id number] [address] [place] [address], [place] [address] Dec, [facility] [address] [id number] [address] [place] [address], [place] [address] Dec, [facility] [address] [id number] [address] [place] [address], [place] [address] Nov, [facility] [address] [id number] [address] [place] [address], [place] [address] Nov, [facility] [address] [id number] [address] [place] [address], [place] [address] Oct, [facility] [address] [id number] [address] [place] [address], [place] [address] Oct, [facility] [address] [id number] [address] [place] [address], [place] [address] Oct, [facility] [address] [id number] [address] [place] [address], [place] [address] Oct, [facility] [address] [id number] [address] [place] [address], [place] [address] Sep, [facility] [address] [id number] [address] [place] [address], [place] [address] Sep, [facility] [address] [id number] [address] [place] [address], [place] [address] Aug, [facility] [address] [id number] [address] [place] [address], [place] [address] Aug, [facility] [address] [id number] [address] [place] [address], [place] [address] Aug, [facility] [address] [id number] [address] [place] [address], [place] [address] Aug, [facility] [address] [id number] [address] [place] [address], [place] [address] Aug, [facility] [address] [id number] [address] [place] [address], [place] [address] Aug, [facility] [address] [id number] [address] [place] [address], [place] [address] Jul, [facility] [address] [id number] [address] [place] [address], [place] [address] Jul, [facility] [address] [id number] [address] [place] [address], [place] [address] June, [facility] [address] [id number] [address] [place] [address], [place] [address] June, [facility] [address] [id number] [address] [place] [address], [place] [address] May, [facility] [address] [id number] [address] [place] [address], [place] [address] May, [facility] [address] [id number] [address] [place] [address], [place] [address] May, [facility] [address] [id number] [address] [place] [address], [place] [address] May, [facility] [address] [id number] [address] [place] [address], [place] [address] Apr, [facility] [address] [id number] [address] [place] [address], [place] [address] 15 Apr, 2011 [facility] [address] [id number] [address] [place] [address], [place] [address] Apr, [facility] [address] [id number] [address] [place] [address], [place] [address] Apr, [facility] [address] [id number] [address] [place] [address], [place] [address] Mar, [facility] [address] [id number] [address] [place] [address], [place] [address] Mar, [facility] [address] [id number] [address] [place] [address], [place] [address] Feb, [facility] [address] [id number] [address] [place] [address], [place] [address] Feb, [facility] [address] [id number] [address] [place] [address], [place] [address] Feb, [facility] [address] [id number] [address] [place] [address], [place] [address] Feb, [facility] [address] [id number] [address] [place] [address], [place] [address] Feb, [facility] [address] [id number] [address] [place] [address], [place] [address] Jan, [facility] [address] [id number] [address] [place] [address], [place] [address] Dec, [facility] [address] [id number] [address] [place] [id number] Dec, [facility] [address] [id number] [address] [place] [address], [place] [address] Dec, [facility] [address] [id number] [address] [place] [id number] Nov, [facility] [address] [id number] [address] [place] [address], [place] [address] Nov, [facility] [address] [id number] [address] [place] [address], [place] [address] Aug, [facility] [address] [id number] [address] [place] [id number] 15 Jan, 2010 [facility] [address] [id number] [address] [place] [id number] Dec, [facility] [address] [facility] [id number] [address] [place] [id number] Nov, [facility] [address] [facility] [id number] [address] [place] [id number] Jan, [facility] [address] [facility] [id number] [address] [place] [id number] Jan, IMMUNIZATIONS No Known Immunizations SOCIAL HISTORY [...] Surgical History x [address] [facility] Hospitalization History lt breast surgery(cancer)
--- OUTSIDE RECORDS SUMMARY | 2019-05-02 19:49 | XMS REPORT ---
Author Author Shannon MCCORMACK [facility] Address [address] [place] [address] Care Team Providers Care Kiln Remover Name Role Phone LAMBERTO MCCORMACK Unavailable PROBLEMS Type Condition ICD9-CM Code [id number] Code Onset Dates Condition S tatus SNOMED Code Problem Arthritis M19.90 Active 7922344 Problem Osteoarthritis M19.90 Active 35982 5006 Problem Major depression F32.9 Active 370 089824 Problem Essential hypertension I10 Active 56653927 Problem GERD (gastroesophageal reflux disease) K21.9 Active 579953923 Problem Insomnia G47.00 Active 064853370 Problem Anxiety F41.9 Active 03519802 Problem Major depressive disorder, recurrent episode, moderate F33.1 Active 041909930 Problem Hypothyroidism E03.9 Active 36239 008 Problem Borderline personality disorder F60.3 Active 18879598 Problem Migraine G43.909 Active 51940718 Problem Morbid (severe) obesity due to excess calories E66 .01 Active 650960242 Problem IZABEL on CPAP G47.33 Active 32858577 Problem Mixed incontinence urge and stress N39.46 Active 190449001 Problem Spinal stenosis M48.00 Active 7610 7001 Problem Open wound of right foot, initial encounter S91.30 1A Active [id number] Problem Body mass index (BMI) of 40.0-44.9 in adult Z68.41 Active 811684229 Problem Breast cancer C50.919 Active 032634 009 Problem Panic disorder F41.0 Active 60054 1005 Problem Other chronic pain G89.29 Active 8 0372432 Problem Type 2 diabetes mellitus E11.9 Activ e 25678745 Problem Diabetic polyneuropathy associated with type 2 d iabetes mellitus E11.42 Active 57933942 Problem Migraine with aura and without status migrainosu s, not intractable G43.109 Active 1583118 Problem Functional urinary incontinence R39.81 Active 571552342 ALLERGIES No Information ENCOUNTERS Encounter Location Date Diagnosis [facility] [address] [id number] [address] [place] [address] Nov, [facility] [address] [place] [address] Oct, Acute swimmer's ear of left side H60.332 [facility] [address] [id number] [address] [place] [address] Sep, Major depressive disorder, r ecurrent episode, moderate F33.1 ; Borderline personality disorder F60.3 and Panic disorder F41.[address] [place] [address] Sep, [address] [address] Sep, [facility] [address] [id number] [address] [place] [address] Sep, [facility] [address] [facility] [id number] [address] [place] [address] Sep, [facility] [address] [facility] [id number] [address] [place] [address] Sep, [address] [address] Sep, Depression, major, recurrent, moderate 2 96.32 [facility] [address] [id number] [address] [place] [address] Sep, [address] [address] Sep, [address] [address] Aug, [address] [address] Aug, [address] [address] Aug, Depression, major, recurrent, moderate 2 96.32 [facility] [address] [id number] [address] [place] [address] Aug, Major depressive disorder, r ecurrent episode, moderate F33.1 ; Panic disorder F41.0 and Borderline personality disorder F60.[address] [address] Aug, Anxiety F41.9 ; Type 2 diabetes mellitus E11.9 ; Mixed incontinence urge and stress N39.46 ; Screening mammogram, encounter for Z12.31 and Morbid obesity E66.[address] [address] Aug, Type 2 diabetes mellitus E11.[address] [address] Aug, [address] [address] Aug, Scalp cyst L72.9 and Morbid obesity E66. [address] [address] Aug, [facility] [address] [facility] [id number] [address] [place] [address] Jul, Major depressive disorder, r ecurrent episode, moderate F33.1 ; Panic disorder F41.0 and Borderline personality disorder F60.[address] [address] Jul, [address] [address] Jul, [address] [address] Jul, [address] [address] Jul, [address] [address] Jul, [address] [address] Jul, Depression, major, recurrent, moderate [address] [address] June, Type 2 diabetes mellitus E11.9 ; Morbid (severe) obesity due to excess calories E66.01 and Body mass index (BMI) of 40.0-44.9 in adult Z68.41 [facility] [address] [place] [address] June, [facility] [address] [place] [address] June, [facility] [address] [place] [address] June, Type 2 diabetes mellitus E11.9 [facility] [address] [place] [address] June, Type 2 diabetes mellitus E11.9 and Morbi d obesity E66.01 [facility] [address] [place] [address] June, [facility] [address] [place] [address] June, [facility] [address] [place] [address] June, [facility] [address] [place] [address] June, Morbid obesity E66.01 [facility] [address] [place] [address] May, [facility] [address] [place] [address] May, [facility] [address] [place] [address] May, [facility] [address] [place] [address] May, Hypothyroidism E03.9 ; Type 2 diabetes m ellitus E11.9 and Morbid obesity E66.01 [facility] [address] [place] [address] May, Morbid obesity E66.01 [facility] [address] [facility] [id number] [address] [place] [address] May, Peripheral edema R60.9 [facility] [address] [facility] [id number] [address] [place] [address] May, Peripheral edema R60.9 ; Fadi ght gain R63.5 ; Shortness of breath R06.02 and Morbid obesity E66.01 [facility] [address] [facility] [place] [address] May, Pedal edema R60.0 and Morbid obesity E66 .01 [facility] [address] [place] [address] May, [facility] [address] [address] May, [facility] [address] [address] May, [facility] [address] [facility] [id number] [address] [place] [address] Apr, Bilateral lower extremity ed maria del rosario R60.0 ; Morbid obesity E66.01 and Weight gain R63.5 [facility] [address] [address] Apr, [facility] [address] [address] Apr, [address] [address] Apr, Migraine with aura and without status mi grainosus, not intractable G43.109 [facility] [address] [place] [address] Apr, [facility] [address] [address] Apr, [address] [address] Apr, [address] [address] Apr, [address] [address] Apr, [address] [address] 07 Apr, 2018 Type 2 diabetes mellitus E11.9 ; Pain in right knee M25.561 ; Other chronic pain G89.29 ; Pain in right shoulder M25.511 ; Morbid obesity E66.01 and Diabetic polyneuropathy associated with type 2 diabetes mellitus E11.[address] [address] Apr, [facility] [address] [facility] [id number] [address] [place] [address] Apr, [facility] [address] [place] [address] Mar, Open wound of right foot, initial encoun ter S91.301A and Morbid obesity E66.01 [facility] [address] [place] [address] Mar, Dysuria R30.0 and Painful urination R30. [address] [place] [address] Mar, Depression, major, recurrent, moderate [address] [address] Mar, [address] [address] Mar, [place] [address] [place] [id number] [address] [place] [address] Feb, Dental examination Z01.20 [place] [address] [place] [id number] [address] [place] [address] Nov, [facility] [address] [place] [id number] [address] [place] [address] Nov, [facility] [address] [place] [id number] [address] [place] [address] 08 Mar, 2015 Major depressive disorder, r ecurrent episode, moderate F33.1 ; Panic disorder F41.0 and Borderline personality disorder F60.3 [place] [address] [place] [id number] [address] [place] [address] Sep, Depression, major, recurrent , moderate 296.32 ; Agoraphobia with panic disorder 300.21 and Borderline personality disorder 301.83 [place] [address] [place] [id number] [address] [place] [address] Aug, Depression, major, recurrent , moderate 296.32 ; Panic disorder without agoraphobia 300.01 and Borderline personality disorder 301.83 [facility] [address] [id number] [address] [place] [address] Jul, Depression, major, recurrent , moderate 296.32 ; Agoraphobia with panic disorder 300.21 and Posttraumatic stress disorder 309.81 [facility] [address] [id number] [address] [place] [address] May, [facility] [address] [id number] [address] [place] [address] May, [facility] [address] [facility] [id number] [address] [place] [address] May, [facility] [address] [facility] [id number] [address] [place] [address] Apr, [facility] [address] [facility] [id number] [address] [place] [address] Apr, [facility] [address] [facility] [id number] [address] [place] [address] Apr, [facility] [address] [facility] [id number] [address] [place] [address] Apr, [facility] [address] [facility] [id number] [address] [place] [address] Mar, [facility] [address] [facility] [id number] [address] [place] [address] Mar, [facility] [address] [facility] [id number] [address] [place] [address] Mar, [facility] [address] [facility] [id number] [address] [place] [address] Mar, [facility] [address] [facility] [id number] [address] [place] [address] Feb, [facility] [address] [facility] [id number] [address] [place] [address] Feb, [facility] [address] [id number] [address] [place] [address], [place] [address] Jan, [facility] [address] [id number] [address] [place] [address], [place] [address] Jan, [facility] [address] [id number] [address] [place] [address], [place] [address] Jan, [facility] [address] [id number] [address] [place] [address], [place] [address] Jan, [facility] [address] [id number] [address] [place] [id number] Dec, [facility] [address] [id number] [address] [place] [id number] Dec, [facility] [address] [id number] [address] [place] [address], [place] [address] Dec, [facility] [address] [id number] [address] [place] [address] Dec, [facility] [address] [id number] [address] [place] [address], [place] [address] Dec, [facility] [address] [id number] [address] [place] [address] Nov, [facility] [address] [id number] [address] [place] [address] Nov, [facility] [address] [id number] [address] [place] [address] Nov, [facility] [address] [id number] [address] [place] [address], [place] [address] Nov, [facility] [address] [id number] [address] [place] [address] Nov, [facility] [address] [id number] [address] [place] [address] Nov, [facility] [address] [id number] [address] [place] [address], [place] [address] Nov, [facility] [address] [id number] [address] [place] [address], [place] [address] Nov, [facility] [address] [id number] [address] [place] [address], [place] [address] Oct, [facility] [address] [id number] [address] [place] [address], [place] [address] Oct, [facility] [address] [id number] [address] [place] [address], [place] [address] Sep, [facility] [address] [id number] [address] [place] [address], [place] [address] Sep, [facility] [address] [id number] [address] [place] [address], [place] [address] Sep, [facility] [address] [id number] [address] [place] [address], [place] [address] Sep, [facility] [address] [id number] [address] [place] [address], [place] [address] Sep, [facility] [address] [id number] [address] [place] [address], [place] [address] Sep, [facility] [address] [id number] [address] [place] [address], [place] [address] Jul, [facility] [address] [id number] [address] [place] [address], [place] [address] Jul, [facility] [address] [id number] [address] [place] [address], [place] [address] June, [facility] [address] [id number] [address] [place] [address], [place] [address] June, [facility] [address] [id number] [address] [place] [address], [place] [address] June, [facility] [address] [id number] [address] [place] [address], [place] [address] June, [facility] [address] [id number] [address] [place] [address], [place] [address] May, [facility] [address] [id number] [address] [place] [address], [place] [address] May, [facility] [address] [id number] [address] [place] [address], [place] [address] May, [facility] [address] [id number] [address] [place] [address], [place] [address] May, [facility] [address] [id number] [address] [place] [address], [place] [address] Apr, [facility] [address] [id number] [address] [place] [address], [place] [address] Apr, [facility] [address] [id number] [address] [place] [address], [place] [address] Mar, [facility] [address] [id number] [address] [place] [address], [place] [address] Mar, [facility] [address] [id number] [address] [place] [address], [place] [address] Feb, [facility] [address] [id number] [address] [place] [address], [place] [address] Feb, [facility] [address] [id number] [address] [place] [address], [place] [address] Feb, [facility] [address] [id number] [address] [place] [address], [place] [address] Feb, [facility] [address] [id number] [address] [place] [address], [place] [address] Dec, [facility] [address] [id number] [address] [place] [address], [place] [address] Dec, [facility] [address] [id number] [address] [place] [address], [place] [address] 15 Dec, 2012 [facility] [address] [id number] [address] [place] [address], [place] [address] Dec, [facility] [address] [id number] [address] [place] [address], [place] [address] Nov, [facility] [address] [id number] [address] [place] [address], [place] [address] Nov, [facility] [address] [id number] [address] [place] [address], [place] [address] Nov, [facility] [address] [id number] [address] [place] [address], [place] [address] Nov, [facility] [address] [id number] [address] [place] [address], [place] [address] 23 Oct, 2012 [facility] [address] [id number] [address] [place] [address], [place] [address] 16 Oct, 2012 [facility] [address] [id number] [address] [place] [address], [place] [address] Oct, [facility] [address] [id number] [address] [place] [address], [place] [address] Oct, [facility] [address] [id number] [address] [place] [address], [place] [address] Aug, [facility] [address] [id number] [address] [place] [address], [place] [address] Aug, [facility] [address] [id number] [address] [place] [address], [place] [address] Aug, [facility] [address] [id number] [address] [place] [address], [place] [address] Aug, [facility] [address] [id number] [address] [place] [address], [place] [address] Aug, [facility] [address] [id number] [address] [place] [address], [place] [address] Jul, [facility] [address] [id number] [address] [place] [address], [place] [address] June, [facility] [address] [id number] [address] [place] [address], [place] [address] 10 May, 2012 [facility] [address] [id number] [address] [place] [address], [place] [address] 14 Apr, 2012 [facility] [address] [id number] [address] [place] [address], [place] [address] 13 Mar, 2012 [facility] [address] [id number] [address] [place] [address], [place] [address] 11 Mar, 2012 [facility] [address] [id number] [address] [place] [address], [place] [address] 20 Jan, 2012 [facility] [address] [id number] [address] [place] [address], [place] [address] Jan, [facility] [address] [id number] [address] [place] [address], [place] [address] Jan, [facility] [address] [id number] [address] [place] [address], [place] [address] Jan, [facility] [address] [id number] [address] [place] [address], [place] [address] Jan, [facility] [address] [id number] [address] [place] [address], [place] [address] Jan, [facility] [address] [id number] [address] [place] [address], [place] [address] Jan, [facility] [address] [id number] [address] [place] [address], [place] [address] Jan, [facility] [address] [id number] [address] [place] [address], [place] [address] Jan, [facility] [address] [id number] [address] [place] [address], [place] [address] Jan, [facility] [address] [id number] [address] [place] [address], [place] [address] Dec, [facility] [address] [id number] [address] [place] [address], [place] [address] Dec, [facility] [address] [id number] [address] [place] [address], [place] [address] Dec, [facility] [address] [id number] [address] [place] [address], [place] [address] Dec, [facility] [address] [id number] [address] [place] [address], [place] [address] Dec, [facility] [address] [id number] [address] [place] [address], [place] [address] Dec, [facility] [address] [id number] [address] [place] [address], [place] [address] Nov, [facility] [address] [id number] [address] [place] [address], [place] [address] Nov, [facility] [address] [id number] [address] [place] [address], [place] [address] Oct, [facility] [address] [id number] [address] [place] [address], [place] [address] Oct, [facility] [address] [id number] [address] [place] [address], [place] [address] Oct, [facility] [address] [id number] [address] [place] [address], [place] [address] Oct, [facility] [address] [id number] [address] [place] [address], [place] [address] Sep, [facility] [address] [id number] [address] [place] [address], [place] [address] Sep, [facility] [address] [id number] [address] [place] [address], [place] [address] Aug, [facility] [address] [id number] [address] [place] [address], [place] [address] Aug, [facility] [address] [id number] [address] [place] [address], [place] [address] Aug, [facility] [address] [id number] [address] [place] [address], [place] [address] 24 Aug, 2011 [facility] [address] [id number] [address] [place] [address], [place] [address] Aug, [facility] [address] [id number] [address] [place] [address], [place] [address] Aug, [facility] [address] [id number] [address] [place] [address], [place] [address] Jul, [facility] [address] [id number] [address] [place] [address], [place] [address] Jul, [facility] [address] [id number] [address] [place] [address], [place] [address] June, [facility] [address] [id number] [address] [place] [address], [place] [address] June, [facility] [address] [id number] [address] [place] [address], [place] [address] May, [facility] [address] [id number] [address] [place] [address], [place] [address] May, [facility] [address] [id number] [address] [place] [address], [place] [address] 05 May, 2011 [facility] [address] [id number] [address] [place] [address], [place] [address] 04 May, 2011 [facility] [address] [id number] [address] [place] [address], [place] [address] Apr, [facility] [address] [id number] [address] [place] [address], [place] [address] 15 Apr, 2011 [facility] [address] [id number] [address] [place] [address], [place] [address] Apr, [facility] [address] [id number] [address] [place] [address], [place] [address] Apr, [facility] [address] [id number] [address] [place] [address], [place] [address] 08 Mar, 2011 [facility] [address] [id number] [address] [place] [address], [place] [address] Mar, [facility] [address] [id number] [address] [place] [address], [place] [address] Feb, [facility] [address] [id number] [address] [place] [address], [place] [address] Feb, [facility] [address] [id number] [address] [place] [address], [place] [address] Feb, [facility] [address] [id number] [address] [place] [address], [place] [address] Feb, [facility] [address] [id number] [address] [place] [address], [place] [address] Feb, [facility] [facility] [address] [id number] [address] [place] [address], [place] [id number] Jan, [facility] [address] [id number] [address] [place] [address], [place] [id number] Dec, [facility] [address] [id number] [address] [place] [address], [place] [id number] Dec, [facility] [address] [id number] [address] [place] [address], [place] [id number] Dec, [facility] [address] [id number] [address] [place] [address], [place] [id number] Nov, [facility] [address] [id number] [address] [place] [address], [place] [id number] Nov, [facility] [address] [id number] [address] [place] [address], [place] [id number] Aug, [facility] [address] [id number] [address] [place] [address], [place] [id number] Jan, [facility] [address] [id number] [address] [place] [address], [place] [id number] Dec, [facility] [address] [id number] [place] [address] Nov, [facility] [address] [facility] [id number] [address] [place] [id number] Jan, [facility] [address] [facility] [id number] [address] [place] [id number] Jan, IMMUNIZATIONS No Known Immunizations SOCIAL HISTORY Never Assessed REASON FOR VISIT PLAN OF CARE VITAL SIGNS MEDICATIONS Unknown Medications RESULTS No Results PROCEDURES Procedure Date Ordered Result Body Site PSYTX PT&/FAMILY 45 MINUTES Nov 10, 2013 INSTRUCTIONS MEDICATIONS ADMINISTERED No Known Medications [...] breast Surgical History x 3 Hospitalization History [facility] [address] [place] [address] for back surge ry Hospitalization History lt breast surgery(cancer)
--- OUTSIDE RECORDS SUMMARY | 2019-05-02 19:49 | XMS REPORT ---
Author Author Shannon THORNTON Organization [facility] Address [address] [place] [address] Care Team Providers Care Sap Abap Developer Name Role Phone STEW THORNTON Unavailable PROBLEMS Type Condition ICD9-CM Code UYB40-PT Code Onset Dates Condition S tatus SNOMED Code Problem Arthritis M19.90 Active 0747005 Problem Osteoarthritis M19.90 Active 39004 5006 Problem Major depression F32.9 Active 370 571850 Problem Essential hypertension I10 Active 85176809 Problem GERD (gastroesophageal reflux disease) K21.9 Active 077633171 Problem Insomnia G47.00 Active 810482415 Problem Anxiety F41.9 Active 32354285 Problem Major depressive disorder, recurrent episode, moderate F33.1 Active 099731307 Problem Hypothyroidism E03.9 Active 93725 008 Problem Borderline personality disorder F60.3 Active 93084797 Problem Migraine G43.909 Active 41916934 Problem Morbid (severe) obesity due to excess calories E66 .01 Active 923279198 Problem IZABEL on CPAP G47.33 Active 52969515 Problem Mixed incontinence urge and stress N39.46 Active 020514649 Problem Spinal stenosis M48.00 Active 7610 7001 Problem Open wound of right foot, initial encounter S91.30 1A Active [id number] Problem Body mass index (BMI) of 40.0-44.9 in adult Z68.41 Active 520985320 Problem Breast cancer C50.919 Active 616056 009 Problem Panic disorder F41.0 Active 77058 1005 Problem Other chronic pain G89.29 Active 8 4290312 Problem Type 2 diabetes mellitus E11.9 Activ e 17929933 Problem Diabetic polyneuropathy associated with type 2 d iabetes mellitus E11.42 Active 02763151 Problem Migraine with aura and without status migrainosu s, not intractable G43.109 Active 4990537 Problem Functional urinary incontinence R39.81 Active 865430696 ALLERGIES No Information ENCOUNTERS Encounter Location Date Diagnosis [facility] [address] [address] Nov, [facility] [address] [facility] [id number] [address] [place] [address] Sep, [facility] [address] [facility] [id number] [address] [place] [address] Sep, [address] [address] Sep, Depression, major, recurrent, moderate 2 96.32 [facility] [address] [facility] [id number] [address] [place] [address] Sep, [address] [address] Sep, [address] [address] Aug, [address] [address] Aug, [address] [address] Aug, Depression, major, recurrent, moderate 2 96.32 [facility] [address] [facility] [id number] [address] [place] [address] Aug, Major depressive disorder, r ecurrent episode, moderate F33.1 ; Panic disorder F41.0 and Borderline personality disorder F60.[address] [address] Aug, Anxiety F41.9 ; Type 2 diabetes mellitus E11.9 ; Mixed incontinence urge and stress N39.46 ; Screening mammogram, encounter for Z12.31 and Morbid obesity E66.[address] [address] Aug, Type 2 diabetes mellitus E11.[address] [address] Aug, [address] [address] Aug, Scalp cyst L72.9 and Morbid obesity E66. 01 [facility] [address] [address] Aug, [facility] [address] [facility] [id number] [address] [place] [address] Jul, Major depressive disorder, r ecurrent episode, moderate F33.1 ; Panic disorder F41.0 and Borderline personality disorder F60.3 [facility] [address] [address] Jul, [facility] [address] [address] Jul, [address] [address] Jul, [facility] [address] [address] Jul, [facility] [address] [address] Jul, [address] [address] Jul, Depression, major, recurrent, moderate [address] [address] June, Type 2 diabetes mellitus E11.9 ; Morbid (severe) obesity due to excess calories E66.01 and Body mass index (BMI) of 40.0-44.9 in adult Z68.41 [facility] [place] [address] [address] June, [address] [address] June, [address] [address] June, Type 2 diabetes mellitus E11.[address] [address] June, Type 2 diabetes mellitus E11.9 and Morbi d obesity E66.01 [facility] [place] [address] [address] June, [address] [address] June, [facility] [address] [place] [address] June, [address] [address] June, Morbid obesity E66.01 [facility] [address] [address] May, [facility] [address] [address] May, [facility] [address] [address] May, [address] [address] May, Hypothyroidism E03.9 ; Type 2 diabetes m ellitus E11.9 and Morbid obesity E66.[address] [address] May, Morbid obesity E66.01 [facility] [address] [facility] [id number] [address] [place] [address] May, Peripheral edema R60.9 [facility] [address] [facility] [id number] [address] [place] [address] May, Peripheral edema R60.9 ; Fadi ght gain R63.5 ; Shortness of breath R06.02 and Morbid obesity E66.01 [facility] [address] [place] [address] May, Pedal edema R60.0 and Morbid obesity E66 .[address] [address] May, [address] [address] May, [address] [address] May, [facility] [address] [facility] [id number] [address] [place] [address] Apr, Bilateral lower extremity ed maria del rosario R60.0 ; Morbid obesity E66.01 and Weight gain R63.5 [facility] [address] [address] Apr, [facility] [place] [address] [address] Apr, [facility] [address] [address] Apr, Migraine with aura and without status mi grainosus, not intractable G43.109 [facility] [place] [address] [address] Apr, [facility] [place] [address] [address] Apr, [address] [address] Apr, [address] [address] Apr, [facility] [address] [address] Apr, [facility] [address] [address] Apr, Type 2 diabetes mellitus E11.9 ; Pain in right knee M25.561 ; Other chronic pain G89.29 ; Pain in right shoulder M25.511 ; Morbid obesity E66.01 and Diabetic polyneuropathy associated with type 2 diabetes mellitus E11.42 [facility] [address] [address] Apr, [facility] [place] [facility] [address] [facility] [id number] [address] [place] [address] Apr, [facility] [address] [place] [address] Mar, Open wound of right foot, initial encoun ter S91.301A and Morbid obesity E66.01 [facility] [place] [facility] [address] [place] [address] Mar, Dysuria R30.0 and Painful urination R30. 9 [facility] [place] [address] [address] Mar, Depression, major, recurrent, moderate 2 96.[address] [address] Mar, [address] [address] Mar, [facility] [address] [place] [id number] [address] [place] [address] Feb, Dental examination Z01.20 [facility] [address] [facility] [id number] [address] [place] [address] Nov, [facility] [address] [place] [id number] [address] [place] [address] Nov, [facility] [address] [address] 08 Mar, 2015 Major depressive disorder, r ecurrent episode, moderate F33.1 ; Panic disorder F41.0 and Borderline personality disorder F60.3 [facility] [address] [place] [id number] [address] [place] [address] Sep, Depression, major, recurrent , moderate 296.32 ; Agoraphobia with panic disorder 300.21 and Borderline personality disorder 301.83 [facility] [address] [place] [id number] [address] [place] [address] Aug, Depression, major, recurrent , moderate 296.32 ; Panic disorder without agoraphobia 300.01 and Borderline personality disorder 301.83 [facility] [address] [place] [id number] [address] [place] [address] Jul, Depression, major, recurrent , moderate 296.32 ; Agoraphobia with panic disorder 300.21 and Posttraumatic stress disorder 309.81 [facility] [address] [facility] [id number] [address] [place] [address] May, [facility] [address] [place] [id number] [address] [place] [address] May, [facility] [address] [place] [id number] [address] [place] [address] May, [facility] [address] [id number] [address] [place] [address], [place] [address] 10 Apr, 2014 [facility] [address] [id number] [address] [place] [address], [place] [address] 10 Apr, 2014 [facility] [address] [id number] [address] [place] [address], [place] [address] 05 Apr, 2014 [facility] [address] [id number] [address] [place] [address], [place] [address] 05 Apr, 2014 [facility] [address] [id number] [address] [place] [address], [place] [address] 16 Mar, 2014 [facility] [address] [id number] [address] [place] [address], [place] [address] 16 Mar, 2014 [facility] [address] [id number] [address] [place] [address], [place] [address] 05 Mar, 2014 [facility] [address] [id number] [address] [place] [address], [place] [address] Mar, 2014 [facility] [address] [id number] [address] [place] [address], [place] [address] Feb, [facility] [address] [id number] [address] [place] [address], [place] [address] Feb, [facility] [address] [id number] [address] [place] [address], [place] [address] Jan, [facility] [address] [id number] [address] [place] [address], [place] [address] Jan, [facility] [address] [id number] [address] [place] [address] Jan, [facility] [address] [id number] [address] [place] [address], [place] [address] Jan, [facility] [address] [id number] [address] [place] [id number] Dec, [facility] [address] [id number] [address] [place] [id number] Dec, [facility] [address] [id number] [address] [place] [address], [place] [address] Dec, [facility] [address] [id number] [address] [place] [address], [place] [address] Dec, [facility] [address] [id number] [address] [place] [address], [place] [address] Dec, [facility] [address] [id number] [address] [place] [address], [place] [address] Nov, [facility] [address] [id number] [address] [place] [address], [place] [address] Nov, [facility] [address] [id number] [address] [place] [address], [place] [address] Nov, [facility] [address] [id number] [address] [place] [address], [place] [address] Nov, [facility] [address] [id number] [address] [place] [address], [place] [address] Nov, [facility] [address] [id number] [address] [place] [address], [place] [address] Nov, [facility] [address] [id number] [address] [place] [address], [place] [address] Nov, [facility] [address] [id number] [address] [place] [address], [place] [address] Nov, [facility] [address] [id number] [address] [place] [address] Oct, [facility] [address] [id number] [address] [place] [address], [place] [address] Oct, [facility] [address] [id number] [address] [place] [address], [place] [address] Sep, [facility] [address] [id number] [address] [place] [address], [place] [address] Sep, [facility] [address] [id number] [address] [place] [address] Sep, [facility] [address] [id number] [address] [place] [address], [place] [address] Sep, [facility] [address] [id number] [address] [place] [address], [place] [address] Sep, [facility] [address] [id number] [address] [place] [address], [place] [address] Sep, [facility] [address] [id number] [address] [place] [address], [place] [address] Jul, [facility] [address] [id number] [address] [place] [address], [place] [address] Jul, [facility] [address] [id number] [address] [place] [address], [place] [address] June, [facility] [address] [id number] [address] [place] [address], [place] [address] June, [facility] [address] [id number] [address] [place] [address], [place] [address] June, [facility] [address] [id number] [address] [place] [address], [place] [address] June, [facility] [address] [id number] [address] [place] [address], [place] [address] May, [facility] [address] [id number] [address] [place] [address], [place] [address] May, [facility] [address] [id number] [address] [place] [address], [place] [address] May, [facility] [address] [id number] [address] [place] [address], [place] [address] May, [facility] [address] [id number] [address] [place] [address], [place] [address] Apr, [facility] [address] [id number] [address] [place] [address], [place] [address] Apr, [facility] [address] [id number] [address] [place] [address], [place] [address] Mar, [facility] [address] [id number] [address] [place] [address], [place] [address] Mar, [facility] [address] [id number] [address] [place] [address], [place] [address] Feb, [facility] [address] [id number] [address] [place] [address], [place] [address] Feb, [facility] [address] [id number] [address] [place] [address], [place] [address] Feb, [facility] [address] [id number] [address] [place] [address], [place] [address] Feb, [facility] [address] [id number] [address] [place] [address], [place] [address] Dec, [facility] [address] [id number] [address] [place] [address], [place] [address] Dec, [facility] [address] [id number] [address] [place] [address], [place] [address] Dec, [facility] [address] [id number] [address] [place] [address], [place] [address] Dec, [facility] [address] [id number] [address] [place] [address], [place] [address] Nov, [facility] [address] [id number] [address] [place] [address], [place] [address] Nov, [facility] [address] [id number] [address] [place] [address], [place] [address] 16 Nov, 2012 [facility] [address] [id number] [address] [place] [address], [place] [address] 16 Nov, 2012 [facility] [address] [id number] [address] [place] [address], [place] [address] 23 Oct, 2012 [facility] [address] [id number] [address] [place] [address] 16 Oct, 2012 [facility] [address] [id number] [address] [place] [address], [place] [address] 10 Oct, 2012 [facility] [address] [id number] [address] [place] [address], [place] [address] Oct, [facility] [address] [id number] [address] [place] [address], [place] [address] Aug, [facility] [address] [id number] [address] [place] [address], [place] [address] Aug, [facility] [address] [id number] [address] [place] [address], [place] [address] Aug, [facility] [address] [id number] [address] [place] [address], [place] [address] Aug, [facility] [address] [id number] [address] [place] [address], [place] [address] Aug, [facility] [address] [id number] [address] [place] [address], [place] [address] Jul, [facility] [address] [id number] [address] [place] [address], [place] [address] June, [facility] [address] [id number] [address] [place] [address], [place] [address] May, [facility] [address] [id number] [address] [place] [address], [place] [address] Apr, [facility] [address] [id number] [address] [place] [address], [place] [address] Mar, [facility] [address] [id number] [address] [place] [address], [place] [address] Mar, [facility] [address] [id number] [address] [place] [address], [place] [address] Jan, [facility] [address] [id number] [address] [place] [address], [place] [address] Jan, [facility] [address] [id number] [address] [place] [address], [place] [address] 20 Jan, 2012 [facility] [address] [id number] [address] [place] [address], [place] [address] 20 Jan, 2012 [facility] [address] [id number] [address] [place] [address], [place] [id number] 13 Jan, 2012 [facility] [address] [id number] [address] [place] [address], [place] [address] Jan, [facility] [address] [id number] [address] [place] [address], [place] [address] Jan, [facility] [address] [id number] [address] [place] [address], [place] [address] Jan, [facility] [address] [id number] [address] [place] [address], [place] [address] Jan, [facility] [address] [id number] [address] [place] [address], [place] [id number] Jan, [facility] [address] [id number] [address] [place] [address], [place] [address] Dec, [facility] [address] [id number] [address] [place] [address], [place] [address] Dec, [facility] [address] [id number] [address] [place] [address], [place] [address] Dec, [facility] [address] [id number] [address] [place] [address], [place] [address] Dec, [facility] [address] [id number] [address] [place] [address], [place] [address] Dec, [facility] [address] [id number] [address] [place] [address], [place] [id number] Dec, [facility] [address] [id number] [address] [place] [address], [place] [id number] Nov, [facility] [address] [id number] [address] [place] [address], [place] [id number] Nov, [facility] [address] [id number] [address] [place] [address], [place] [id number] Oct, [facility] [address] [id number] [address] [place] [address], [place] [id number] Oct, [facility] [address] [id number] [address] [place] [address], [place] [id number] Oct, [facility] [address] [id number] [address] [place] [address], [place] [id number] Oct, [facility] [address] [id number] [address] [place] [address], [place] [id number] Sep, [facility] [address] [id number] [address] [place] [address], [place] [id number] Sep, [facility] [address] [id number] [address] [place] [address], [place] [id number] Aug, [facility] [address] [id number] [address] [place] [address], [place] [id number] Aug, [facility] [address] [id number] [address] [place] [address], [place] [id number] Aug, [facility] [address] [id number] [address] [place] [address], [place] [id number] Aug, [facility] [address] [id number] [address] [place] [address], [place] [id number] Aug, [facility] [address] [id number] [address] [place] [address], [place] [id number] Aug, [facility] [address] [id number] [address] [place] [address], [place] [id number] Jul, [facility] [address] [id number] [address] [place] [address], [place] [id number] Jul, [facility] [address] [id number] [address] [place] [address], [place] [id number] June, [facility] [address] [id number] [address] [place] [address], [place] [id number] June, [facility] [address] [id number] [address] [place] [address], [place] [id number] May, [facility] [address] [id number] [address] [place] [address], [place] [id number] May, [facility] [address] [id number] [address] [place] [address], [place] [id number] May, [facility] [address] [id number] [address] [place] [address], [place] [id number] May, [facility] [address] [id number] [address] [place] [address], [place] [id number] Apr, [facility] [address] [id number] [address] [place] [address], [place] [id number] Apr, [facility] [address] [id number] [address] [place] [address], [place] [id number] Apr, [facility] [address] [id number] [address] [place] [address], [place] [id number] Apr, [facility] [address] [id number] [address] [place] [address], [place] [id number] Mar, [facility] [address] [address] [id number] [address] [place] [address], [place] [id number] Mar, [facility] [address] [id number] [address] [place] [address], [place] [id number] Feb, [facility] [address] [id number] [address] [place] [address], [place] [id number] Feb, [facility] [address] [id number] [address] [place] [address], [place] [id number] Feb, [facility] [address] [id number] [address] [place] [address], [place] [id number] Feb, [facility] [address] [id number] [address] [place] [address], [place] [id number] Feb, [facility] [address] [id number] [address] [place] [id number] Jan, [facility] [address] [id number] [address] [place] [id number] Dec, [facility] [address] [id number] [address] [place] [phone] Dec, [facility] [address] [id number] [address] [place] [phone] Dec, [facility] [address] [id number] [address] [place] [phone] Nov, [facility] [address] [id number] [address] [place] [id number] Nov, [facility] [address] [id number] [address] [place] [id number] Aug, [facility] [address] [id number] [address] [place] [phone] Jan, [facility] [address] [id number] [address] [place] [phone] Dec, [facility] [address] [id number] [address] [place] [phone] Nov, [facility] [address] [id number] [address] [place] [phone] Jan, [facility] [address] [id number] [address] [place] [id number] Jan, IMMUNIZATIONS No Known Immunizations SOCIAL HISTORY [...]
--- OUTSIDE RECORDS SUMMARY | 2019-05-02 19:49 | XMS REPORT ---
Author Author Filipe, Shannon Doctor Organization [facility] Address Unknown Phone Unavailable Care Team Providers Care Inspector Boiler Name Role Phone Migration, Doctor Unavailable Unavailable PROBLEMS Type Condition ICD9-CM Code [id number] Code Onset Dates Condition S tatus SNOMED Code Problem Arthritis M19.90 Active 2122010 Problem Osteoarthritis M19.90 Active 63677 5006 Problem Major depression F32.9 Active 370 159957 Problem Essential hypertension I10 Active 20707861 Problem GERD (gastroesophageal reflux disease) K21.9 Active 826267065 Problem Insomnia G47.00 Active 502823816 Problem Anxiety F41.9 Active 37137602 Problem Major depressive disorder, recurrent episode, moderate F33.1 Active 958258548 Problem Hypothyroidism E03.9 Active 22773 008 Problem Borderline personality disorder F60.3 Active 03492196 Problem Migraine G43.909 Active 53410051 Problem Morbid (severe) obesity due to excess calories E66 .01 Active 346247614 Problem IZABEL on CPAP G47.33 Active 95816041 Problem Mixed incontinence urge and stress N39.46 Active 292609445 Problem Spinal stenosis M48.00 Active 7610 7001 Problem Open wound of right foot, initial encounter S91.30 1A Active [id number] Problem Body mass index (BMI) of 40.0-44.9 in adult Z68.41 Active 567483379 Problem Breast cancer C50.919 Active 107627 009 Problem Panic disorder F41.0 Active 37459 1005 Problem Other chronic pain G89.29 Active 8 3204133 Problem Type 2 diabetes mellitus E11.9 Activ e 20102823 Problem Diabetic polyneuropathy associated with type 2 d iabetes mellitus E11.42 Active 40840612 Problem Migraine with aura and without status migrainosu s, not intractable G43.109 Active 6311403 Problem Functional urinary incontinence R39.81 Active 793050914 ALLERGIES No Information ENCOUNTERS Encounter Location Date Diagnosis [facility] [address] [facility] [id number] [address] [place] [address] Nov, [facility] [address] [id number] [address] [place] [address] Sep, Major depressive disorder, r ecurrent episode, moderate F33.1 ; Borderline personality disorder F60.3 and Panic disorder F41.0 [facility] [address] [address] Sep, [address] [address] Sep, [facility] [address] [id number] [address] [place] [address] Sep, [facility] [address] [id number] [address] [place] [address] Sep, [facility] [address] [facility] [id number] [address] [place] [address] Sep, [address] [address] Sep, Depression, major, recurrent, moderate 2 96.32 [facility] [address] [id number] [address] [place] [address] Sep, [address] [address] Sep, [address] [address] Aug, [address] [address] Aug, [address] [address] Aug, Depression, major, recurrent, moderate 2 96.32 [facility] [address] [id number] [address] [place] [address] Aug, Major depressive disorder, r ecurrent episode, moderate F33.1 ; Panic disorder F41.0 and Borderline personality disorder F60.[address] [address] Aug, Anxiety F41.9 ; Type 2 diabetes mellitus E11.9 ; Mixed incontinence urge and stress N39.46 ; Screening mammogram, encounter for Z12.31 and Morbid obesity E66.[address] [address] Aug, Type 2 diabetes mellitus E11.[address] [address] Aug, [address] [address] Aug, Scalp cyst L72.9 and Morbid obesity E66. [address] [address] Aug, [facility] [address] [facility] [id number] [address] [place] [address] Jul, Major depressive disorder, r ecurrent episode, moderate F33.1 ; Panic disorder F41.0 and Borderline personality disorder F60.[address] [address] Jul, [address] [address] Jul, [address] [address] Jul, [address] [address] Jul, [address] [address] Jul, [address] [address] Jul, Depression, major, recurrent, moderate [address] [address] June, Type 2 diabetes mellitus E11.9 ; Morbid (severe) obesity due to excess calories E66.01 and Body mass index (BMI) of 40.0-44.9 in adult Z68.41 [facility] [address] [address] June, [address] [address] June, [facility] [address] [place] [address] June, Type 2 diabetes mellitus E11.9 [facility] [address] [place] [address] June, Type 2 diabetes mellitus E11.9 and Morbi d obesity E66.01 [facility] [address] [place] [address] June, [facility] [address] [place] [address] June, [facility] [address] [place] [address] June, [facility] [address] [place] [address] June, Morbid obesity E66.01 [facility] [address] [place] [address] May, [facility] [address] [place] [address] May, [facility] [address] [place] [address] May, [facility] [address] [place] [address] May, Hypothyroidism E03.9 ; Type 2 diabetes m ellitus E11.9 and Morbid obesity E66.01 [facility] [address] [place] [address] May, Morbid obesity E66.01 [facility] [address] [facility] [id number] [address] [place] [address] May, Peripheral edema R60.9 [facility] [address] [facility] [id number] [address] [place] [address] May, Peripheral edema R60.9 ; Fadi ght gain R63.5 ; Shortness of breath R06.02 and Morbid obesity E66.01 [facility] [address] [facility] [place] [address] May, Pedal edema R60.0 and Morbid obesity E66 .01 [facility] [address] [place] [address] May, [facility] [address] [place] [address] May, [facility] [address] [address] May, [facility] [address] [facility] [id number] [address] [place] [address] Apr, Bilateral lower extremity ed maria del rosario R60.0 ; Morbid obesity E66.01 and Weight gain R63.5 [facility] [address] [place] [address] Apr, [facility] [address] [place] [address] Apr, [facility] [address] [place] [address] Apr, Migraine with aura and without status mi grainosus, not intractable G43.109 [facility] [address] [place] [address] Apr, [facility] [address] [address] Apr, [facility] [address] [address] Apr, [facility] [address] [address] Apr, [facility] [address] [address] Apr, [facility] [address] [address] Apr, Type 2 diabetes mellitus E11.9 ; Pain in right knee M25.561 ; Other chronic pain G89.29 ; Pain in right shoulder M25.511 ; Morbid obesity E66.01 and Diabetic polyneuropathy associated with type 2 diabetes mellitus E11.42 [facility] [address] [place] [address] Apr, [facility] [address] [facility] [id number] [address] [place] [address] Apr, [facility] [address] [facility] [place] [address] Mar, Open wound of right foot, initial encoun ter S91.301A and Morbid obesity E66.01 [facility] [address] [facility] [place] [address] 09 Mar, 2018 Dysuria R30.0 and Painful urination R30. [address] [address] 07 Mar, 2018 Depression, major, recurrent, moderate [address] [address] 05 Mar, [address] [address] Mar, [place] [address] [place] [place] [id number] [address] [place] [address] 10 Feb, 2016 Dental examination Z01.20 [place] [place] [address] [place] [place] [id number] [address] [place] [address] Nov, [facility] [address] [place] [id number] [address] [place] [address] Nov, [place] [place] [address] [place] [id number] [address] [place] [address] 08 Mar, 2015 Major depressive disorder, r ecurrent episode, moderate F33.1 ; Panic disorder F41.0 and Borderline personality disorder F60.3 [place] [address] [place] [id number] [address] [place] [address] Sep, Depression, major, recurrent , moderate 296.32 ; Agoraphobia with panic disorder 300.21 and Borderline personality disorder 301.83 [facility] [address] [facility] [id number] [address] [place] [address] Aug, Depression, major, recurrent , moderate 296.32 ; Panic disorder without agoraphobia 300.01 and Borderline personality disorder 301.83 [facility] [address] [place] [place] [id number] [address] [place] [address] Jul, Depression, major, recurrent , moderate 296.32 ; Agoraphobia with panic disorder 300.21 and Posttraumatic stress disorder 309.81 [facility] [address] [id number] [address] [place] [address] 30 May, 2014 [facility] [address] [id number] [address] [place] [address] 14 May, 2014 [facility] [address] [id number] [address] [place] [address] 13 May, 2014 [facility] [address] [id number] [address] [place] [address] 10 Apr, 2014 [facility] [address] [id number] [address] [place] [address] Apr, [facility] [address] [id number] [address] [place] [address] Apr, [facility] [address] [id number] [address] [place] [address] Apr, [facility] [address] [id number] [address] [place] [address] 16 Mar, 2014 [facility] [address] [id number] [address] [place] [address] Mar, [facility] [address] [id number] [address] [place] [address] Mar, [facility] [address] [id number] [address] [place] [address] Mar, [facility] [address] [id number] [address] [place] [address] Feb, [facility] [address] [id number] [address] [place] [address] Feb, [facility] [address] [id number] [address] [place] [address] Jan, [facility] [address] [id number] [address] [place] [address] Jan, [facility] [address] [id number] [address] [place] [address], [place] [address] Jan, [facility] [address] [id number] [address] [place] [address], [place] [address] Jan, [facility] [address] [id number] [address] [place] [address], [place] [id number] Dec, [facility] [address] [id number] [address] [place] [id number] Dec, [facility] [address] [id number] [address] [place] [address], [place] [address] Dec, [facility] [address] [id number] [address] [place] [address], [place] [address] Dec, [facility] [address] [id number] [address] [place] [address], [place] [address] Dec, [facility] [address] [id number] [address] [place] [address], [place] [address] Nov, [facility] [address] [id number] [address] [place] [address], [place] [address] Nov, [facility] [address] [id number] [address] [place] [address], [place] [address] Nov, [facility] [address] [id number] [address] [place] [address], [place] [address] Nov, [facility] [address] [id number] [address] [place] [address] Nov, [facility] [address] [id number] [address] [place] [address], [place] [address] Nov, [facility] [address] [id number] [address] [place] [address], [place] [address] Nov, [facility] [address] [id number] [address] [place] [address] Nov, [facility] [address] [id number] [address] [place] [address] Oct, [facility] [address] [id number] [address] [place] [address], [place] [address] Oct, [facility] [address] [id number] [address] [place] [address], [place] [address] Sep, [facility] [address] [id number] [address] [place] [address], [place] [address] Sep, [facility] [address] [id number] [address] [place] [address], [place] [address] Sep, [facility] [address] [id number] [address] [place] [address], [place] [address] Sep, [facility] [address] [id number] [address] [place] [address], [place] [address] Sep, [facility] [address] [id number] [address] [place] [address], [place] [address] Sep, [facility] [address] [id number] [address] [place] [address], [place] [address] Jul, [facility] [address] [id number] [address] [place] [address], [place] [address] Jul, [facility] [address] [id number] [address] [place] [address], [place] [address] June, [facility] [address] [id number] [address] [place] [address], [place] [address] June, [facility] [address] [id number] [address] [place] [address], [place] [address] June, [facility] [address] [id number] [address] [place] [address], [place] [address] June, [facility] [address] [id number] [address] [place] [address], [place] [address] May, [facility] [address] [id number] [address] [place] [address], [place] [address] May, [facility] [address] [id number] [address] [place] [address], [place] [address] 15 May, 2013 [facility] [address] [id number] [address] [place] [address], [place] [address] 15 May, 2013 [facility] [address] [id number] [address] [place] [address], [place] [address] Apr, [facility] [address] [id number] [address] [place] [address], [place] [address] Apr, [facility] [address] [id number] [address] [place] [address], [place] [address] Mar, [facility] [address] [id number] [address] [place] [address], [place] [address] Mar, [facility] [address] [id number] [address] [place] [address], [place] [address] Feb, [facility] [address] [id number] [address] [place] [address], [place] [address] Feb, [facility] [address] [id number] [address] [place] [address], [place] [address] Feb, [facility] [address] [id number] [address] [place] [address], [place] [address] Feb, [facility] [address] [id number] [address] [place] [address], [place] [address] Dec, [facility] [address] [id number] [address] [place] [address], [place] [address] Dec, [facility] [address] [id number] [address] [place] [address], [place] [address] Dec, [facility] [address] [id number] [address] [place] [address], [place] [address] Dec, [facility] [address] [id number] [address] [place] [address], [place] [address] Nov, [facility] [address] [id number] [address] [place] [address], [place] [address] Nov, [facility] [address] [id number] [address] [place] [address], [place] [address] Nov, [facility] [address] [id number] [address] [place] [address], [place] [address] Nov, [facility] [address] [id number] [address] [place] [address], [place] [address] 23 Oct, 2012 [facility] [address] [id number] [address] [place] [address], [place] [address] 16 Oct, 2012 [facility] [address] [id number] [address] [place] [address], [place] [address] Oct, [facility] [address] [id number] [address] [place] [address], [place] [address] Oct, [facility] [address] [id number] [address] [place] [address], [place] [address] Aug, [facility] [address] [id number] [address] [place] [address], [place] [address] Aug, [facility] [address] [id number] [address] [place] [address], [place] [address] Aug, [facility] [address] [id number] [address] [place] [address], [place] [address] Aug, [facility] [address] [id number] [address] [place] [address], [place] [address] Aug, [facility] [address] [id number] [address] [place] [address], [place] [address] Jul, [facility] [address] [id number] [address] [place] [address], [place] [address] June, [facility] [address] [id number] [address] [place] [address], [place] [address] May, [facility] [address] [id number] [address] [place] [address], [place] [address] Apr, [facility] [address] [id number] [address] [place] [address] [place] [address] 13 Mar, 2012 [facility] [address] [id number] [address] [place] [address], [place] [address] 11 Mar, 2012 [facility] [address] [id number] [address] [place] [address], [place] [address] 20 Jan, 2012 [facility] [address] [id number] [address] [place] [address], [place] [address] Jan, [facility] [address] [id number] [address] [place] [address], [place] [address] Jan, [facility] [address] [id number] [address] [place] [address], [place] [address] Jan, [facility] [address] [id number] [address] [place] [address], [place] [address] Jan, [facility] [address] [id number] [address] [place] [address], [place] [address] Jan, [facility] [address] [id number] [address] [place] [address], [place] [address] Jan, [facility] [address] [id number] [address] [place] [address], [place] [address] Jan, [facility] [address] [id number] [address] [place] [address], [place] [address] Jan, [facility] [address] [id number] [address] [place] [address], [place] [address] Jan, [facility] [address] [id number] [address] [place] [address], [place] [address] Dec, [facility] [address] [id number] [address] [place] [address], [place] [address] Dec, [facility] [address] [id number] [address] [place] [address], [place] [address] Dec, [facility] [address] [id number] [address] [place] [address], [place] [address] Dec, [facility] [address] [id number] [address] [place] [address], [place] [address] Dec, [facility] [address] [id number] [address] [place] [address], [place] [address] Dec, [facility] [address] [id number] [address] [place] [address], [place] [address] Nov, [facility] [address] [id number] [address] [place] [address], [place] [address] Nov, [facility] [address] [id number] [address] [place] [address], [place] [id number] Oct, [facility] [address] [id number] [address] [place] [address], [place] [id number] Oct, [facility] [address] [id number] [address] [place] [address], [place] [id number] Oct, [facility] [address] [id number] [address] [place] [address], [place] [id number] Oct, [facility] [address] [id number] [address] [place] [address], [place] [id number] Sep, [facility] [address] [id number] [address] [place] [address], [place] [id number] Sep, [facility] [address] [id number] [address] [place] [address], [place] [id number] Aug, [facility] [address] [id number] [address] [place] [address], [place] [id number] Aug, [facility] [address] [id number] [address] [place] [address], [place] [id number] Aug, [facility] [address] [id number] [address] [place] [address], [place] [id number] Aug, [facility] [address] [id number] [address] [place] [address], [place] [id number] Aug, [facility] [address] [id number] [address] [place] [address], [place] [id number] Aug, [facility] [address] [id number] [address] [place] [address], [place] [id number] Jul, [facility] [address] [id number] [address] [place] [address], [place] [id number] Jul, [facility] [address] [id number] [address] [place] [address], [place] [id number] June, [facility] [address] [id number] [address] [place] [address], [place] [id number] June, [facility] [address] [id number] [address] [place] [address], [place] [id number] May, [facility] [address] [id number] [address] [place] [address], [place] [id number] May, [facility] [address] [id number] [address] [place] [address], [place] [id number] May, [facility] [address] [id number] [address] [place] [address], [place] [id number] May, [facility] [address] [id number] [address] [place] [address], [place] [id number] Apr, [facility] [address] [id number] [address] [place] [address], [place] [id number] Apr, [facility] [address] [id number] [address] [place] [address], [place] [id number] Apr, [facility] [address] [id number] [address] [place] [address], [place] [id number] Apr, [facility] [address] [id number] [address] [place] [address], [place] [id number] Mar, [facility] [address] [id number] [address] [place] [address], [place] [id number] Mar, [facility] [address] [id number] [address] [place] [address], [place] [id number] Feb, [facility] [address] [id number] [address] [place] [address], [place] [id number] Feb, [facility] [address] [id number] [address] [place] [address], [place] [id number] Feb, [facility] [address] [id number] [address] [place] [address], [place] [id number] Feb, [facility] [address] [id number] [address] [place] [address], [place] [id number] Feb, [facility] [facility] [address] [id number] [address] [place] [address], [place] [id number] Jan, [facility] [address] [id number] [address] [place] [address], [place] [id number] Dec, [facility] [address] [id number] [address] [place] [address], [place] [id number] Dec, [facility] [address] [id number] [address] [place] [address], [place] [id number] Dec, [facility] [address] [id number] [address] [place] [address], [place] [id number] Nov, [facility] [address] [id number] [address] [place] [address], [place] [id number] Nov, [facility] [address] [id number] [address] [place] [address], [place] [id number] Aug, [facility] [address] [id number] [address] [place] [address], [place] [id number] Jan, [facility] [address] [id number] [address] [place] [address], [place] [id number] Dec, [facility] [address] [id number] [address] [place] [address], [place] [id number] Nov, [facility] [address] [id number] [address] [place] [address], [place] [id number] Jan, [facility] [address] [id number] [address] [place] [address], [place] [id number] Jan, IMMUNIZATIONS No Known Immunizations SOCIAL HISTORY [...] Osteoarthritis Medical History Spinal stenosis Medical History ZIABEL on CPAP Medical History Morbid (severe) obesity due to excess ca lories Medical History Functional urinary incontinence Surgical History back surgery x 4 Surgical History carpel tunnel right hand Surgical History hysterectomy Surgical History surgery on left breast Surgical History x 3 Hospitalization History [facility] for [facility] surge [facility] Hospitalization History lt breast surgery(cancer)
--- OUTSIDE RECORDS SUMMARY | 2019-05-02 19:49 | XMS REPORT ---
Author Author Filipe, Shannon Doctor Organization [facility] Address Unknown Phone Unavailable Care Team Providers Care Junior Linux Administrator Name Role Phone Migration, Doctor Unavailable Unavailable PROBLEMS Type Condition ICD9-CM Code KCY24-MN Code Onset Dates Condition S tatus SNOMED Code Problem Arthritis M19.90 Active 6588197 Problem Osteoarthritis M19.90 Active 45806 5006 Problem Major depression F32.9 Active 370 527563 Problem Essential hypertension I10 Active 64084409 Problem GERD (gastroesophageal reflux disease) K21.9 Active 344647777 Problem Insomnia G47.00 Active 286446201 Problem Anxiety F41.9 Active 42697446 Problem Major depressive disorder, recurrent episode, moderate F33.1 Active 683019261 Problem Hypothyroidism E03.9 Active 25227 008 Problem Borderline personality disorder F60.3 Active 24742377 Problem Migraine G43.909 Active 75275202 Problem Morbid (severe) obesity due to excess calories E66 .01 Active 360295554 Problem IZABEL on CPAP G47.33 Active 55040445 Problem Mixed incontinence urge and stress N39.46 Active 444102220 Problem Spinal stenosis M48.00 Active 7610 7001 Problem Open wound of right foot, initial encounter S91.30 1A Active [id number] Problem Body mass index (BMI) of 40.0-44.9 in adult Z68.41 Active 495703390 Problem Breast cancer C50.919 Active 028333 009 Problem Panic disorder F41.0 Active 60840 1005 Problem Other chronic pain G89.29 Active 8 9047834 Problem Type 2 diabetes mellitus E11.9 Activ e 00826878 Problem Diabetic polyneuropathy associated with type 2 d iabetes mellitus E11.42 Active 11202775 Problem Migraine with aura and without status migrainosu s, not intractable G43.109 Active 7305548 Problem Functional urinary incontinence R39.81 Active [id number] ALLERGIES No Information ENCOUNTERS Encounter Location Date Diagnosis [facility] [address] [facility] [id number] [address] [place] [address] Nov, [facility] [address] [id number] [address] [place] [address] Sep, Major depressive disorder, r ecurrent episode, moderate F33.1 ; Borderline personality disorder F60.3 and Panic disorder F41.0 [facility] [address] [address] Sep, [address] [address] Sep, [facility] [address] [id number] [address] [place] [address] Sep, [facility] [address] [id number] [address] [place] [address] Sep, [facility] [address] [facility] [id number] [address] [place] [address] Sep, [address] [address] Sep, Depression, major, recurrent, moderate 2 96.32 [facility] [address] [id number] [address] [place] [address] Sep, [address] [address] Sep, [address] [address] Aug, [address] [address] Aug, [address] [address] Aug, Depression, major, recurrent, moderate 2 96.32 [facility] [address] [id number] [address] [place] [address] Aug, Major depressive disorder, r ecurrent episode, moderate F33.1 ; Panic disorder F41.0 and Borderline personality disorder F60.[address] [address] Aug, Anxiety F41.9 ; Type 2 diabetes mellitus E11.9 ; Mixed incontinence urge and stress N39.46 ; Screening mammogram, encounter for Z12.31 and Morbid obesity E66.[address] [address] Aug, Type 2 diabetes mellitus E11.[address] [address] Aug, [address] [address] Aug, Scalp cyst L72.9 and Morbid obesity E66. [address] [address] Aug, [facility] [address] [facility] [id number] [address] [place] [address] Jul, Major depressive disorder, r ecurrent episode, moderate F33.1 ; Panic disorder F41.0 and Borderline personality disorder F60.[address] [address] Jul, [address] [address] Jul, [address] [address] Jul, [address] [address] Jul, [address] [address] Jul, [address] [address] Jul, Depression, major, recurrent, moderate [address] [address] June, Type 2 diabetes mellitus E11.9 ; Morbid (severe) obesity due to excess calories E66.01 and Body mass index (BMI) of 40.0-44.9 in adult Z68.41 [facility] [address] [address] June, [address] [address] June, [facility] [address] [place] [address] June, Type 2 diabetes mellitus E11.9 [facility] [address] [place] [address] June, Type 2 diabetes mellitus E11.9 and Morbi d obesity E66.01 [facility] [address] [place] [address] June, [facility] [address] [place] [address] June, [facility] [address] [place] [address] June, [facility] [address] [place] [address] June, Morbid obesity E66.01 [facility] [address] [place] [address] May, [facility] [address] [place] [address] May, [facility] [address] [place] [address] May, [facility] [address] [place] [address] May, Hypothyroidism E03.9 ; Type 2 diabetes m ellitus E11.9 and Morbid obesity E66.01 [facility] [address] [place] [address] May, Morbid obesity E66.01 [facility] [address] [facility] [id number] [address] [place] [address] May, Peripheral edema R60.9 [facility] [address] [facility] [id number] [address] [place] [address] May, Peripheral edema R60.9 ; Fadi ght gain R63.5 ; Shortness of breath R06.02 and Morbid obesity E66.01 [facility] [address] [place] [address] May, Pedal edema R60.0 and Morbid obesity E66 .01 [facility] [address] [place] [address] May, [facility] [address] [place] [address] May, [facility] [address] [address] May, [facility] [address] [facility] [id number] [address] [place] [address] Apr, Bilateral lower extremity ed maria del rosario R60.0 ; Morbid obesity E66.01 and Weight gain R63.5 [facility] [address] [place] [address] Apr, [facility] [address] [place] [address] Apr, [facility] [address] [place] [address] Apr, Migraine with aura and without status mi grainosus, not intractable G43.109 [facility] [address] [place] [address] Apr, [facility] [address] [address] Apr, [facility] [address] [address] Apr, [facility] [address] [address] Apr, [facility] [address] [address] Apr, [facility] [address] [address] Apr, Type 2 diabetes mellitus E11.9 ; Pain in right knee M25.561 ; Other chronic pain G89.29 ; Pain in right shoulder M25.511 ; Morbid obesity E66.01 and Diabetic polyneuropathy associated with type 2 diabetes mellitus E11.42 [facility] [address] [place] [address] Apr, [facility] [address] [facility] [id number] [address] [place] [address] Apr, [facility] [address] [place] [address] Mar, Open wound of right foot, initial encoun ter S91.301A and Morbid obesity E66.01 [facility] [address] [place] [address] 09 Mar, 2018 Dysuria R30.0 and Painful urination R30. [address] [address] 07 Mar, 2018 Depression, major, recurrent, moderate [address] [address] 05 Mar, [address] [address] Mar, [place] [address] [place] [id number] [address] [place] [address] 10 Feb, 2016 Dental examination Z01.20 [facility] [address] [place] [id number] [address] [place] [address] Nov, [facility] [address] [place] [id number] [address] [place] [address] Nov, [facility] [address] [place] [id number] [address] [place] [address] 08 Mar, 2015 Major depressive disorder, r ecurrent episode, moderate F33.1 ; Panic disorder F41.0 and Borderline personality disorder F60.3 [facility] [address] [place] [id number] [address] [place] [address] Sep, Depression, major, recurrent , moderate 296.32 ; Agoraphobia with panic disorder 300.21 and Borderline personality disorder 301.83 [facility] [address] [facility] [id number] [address] [place] [address] Aug, Depression, major, recurrent , moderate 296.32 ; Panic disorder without agoraphobia 300.01 and Borderline personality disorder 301.83 [facility] [address] [place] [id number] [address] [place] [address] Jul, Depression, major, recurrent , moderate 296.32 ; Agoraphobia with panic disorder 300.21 and Posttraumatic stress disorder [address].81 [facility] [address] [id number] [address] [place] [address] 30 May, 2014 [facility] [address] [id number] [address] [place] [address] 14 May, 2014 [facility] [address] [id number] [address] [place] [address] 13 May, 2014 [facility] [address] [id number] [address] [place] [address] 10 Apr, 2014 [facility] [address] [id number] [address] [place] [address] Apr, [facility] [address] [id number] [address] [place] [address] Apr, [facility] [address] [id number] [address] [place] [address] Apr, [facility] [address] [id number] [address] [place] [address] 16 Mar, 2014 [facility] [address] [id number] [address] [place] [address] Mar, [facility] [address] [id number] [address] [place] [address] Mar, [facility] [address] [id number] [address] [place] [address] Mar, [facility] [address] [id number] [address] [place] [address] Feb, [facility] [address] [id number] [address] [place] [address] Feb, [facility] [address] [id number] [address] [place] [address] Jan, [facility] [address] [id number] [address] [place] [address] Jan, [facility] [address] [id number] [address] [place] [address], [place] [address] Jan, [facility] [address] [id number] [address] [place] [address], [place] [address] Jan, [facility] [address] [id number] [address] [place] [address], [place] [id number] Dec, [facility] [address] [id number] [address] [place] [id number] Dec, [facility] [address] [id number] [address] [place] [address], [place] [address] Dec, [facility] [address] [id number] [address] [place] [address], [place] [address] Dec, [facility] [address] [id number] [address] [place] [address], [place] [address] Dec, [facility] [address] [id number] [address] [place] [address], [place] [address] Nov, [facility] [address] [id number] [address] [place] [address], [place] [address] Nov, [facility] [address] [id number] [address] [place] [address], [place] [address] Nov, [facility] [address] [id number] [address] [place] [address], [place] [address] Nov, [facility] [address] [id number] [address] [place] [address] Nov, [facility] [address] [id number] [address] [place] [address], [place] [address] Nov, [facility] [address] [id number] [address] [place] [address], [place] [address] Nov, [facility] [address] [id number] [address] [place] [address] Nov, [facility] [address] [id number] [address] [place] [address] Oct, [facility] [address] [id number] [address] [place] [address], [place] [address] Oct, [facility] [address] [id number] [address] [place] [address], [place] [address] Sep, [facility] [address] [id number] [address] [place] [address], [place] [address] Sep, [facility] [address] [id number] [address] [place] [address], [place] [address] Sep, [facility] [address] [id number] [address] [place] [address], [place] [address] Sep, [facility] [address] [id number] [address] [place] [address], [place] [address] Sep, [facility] [address] [id number] [address] [place] [address], [place] [address] Sep, [facility] [address] [id number] [address] [place] [address], [place] [address] Jul, [facility] [address] [id number] [address] [place] [address], [place] [address] Jul, [facility] [address] [id number] [address] [place] [address], [place] [address] June, [facility] [address] [id number] [address] [place] [address], [place] [address] June, [facility] [address] [id number] [address] [place] [address], [place] [address] June, [facility] [address] [id number] [address] [place] [address], [place] [address] June, [facility] [address] [id number] [address] [place] [address], [place] [address] May, [facility] [address] [id number] [address] [place] [address], [place] [address] May, [facility] [address] [id number] [address] [place] [address], [place] [address] 15 May, 2013 [facility] [address] [id number] [address] [place] [address], [place] [address] 15 May, 2013 [facility] [address] [id number] [address] [place] [address], [place] [address] Apr, [facility] [address] [id number] [address] [place] [address], [place] [address] Apr, [facility] [address] [id number] [address] [place] [address], [place] [address] Mar, [facility] [address] [id number] [address] [place] [address], [place] [address] Mar, [facility] [address] [id number] [address] [place] [address], [place] [address] Feb, [facility] [address] [id number] [address] [place] [address], [place] [address] Feb, [facility] [address] [id number] [address] [place] [address], [place] [address] Feb, [facility] [address] [id number] [address] [place] [address], [place] [address] Feb, [facility] [address] [id number] [address] [place] [address], [place] [address] Dec, [facility] [address] [id number] [address] [place] [address], [place] [address] Dec, [facility] [address] [id number] [address] [place] [address], [place] [address] Dec, [facility] [address] [id number] [address] [place] [address], [place] [address] Dec, [facility] [address] [id number] [address] [place] [address], [place] [address] Nov, [facility] [address] [id number] [address] [place] [address], [place] [address] Nov, [facility] [address] [id number] [address] [place] [address], [place] [address] Nov, [facility] [address] [id number] [address] [place] [address], [place] [address] Nov, [facility] [address] [id number] [address] [place] [address], [place] [address] 23 Oct, 2012 [facility] [address] [id number] [address] [place] [address], [place] [address] 16 Oct, 2012 [facility] [address] [id number] [address] [place] [address], [place] [address] Oct, [facility] [address] [id number] [address] [place] [address], [place] [address] Oct, [facility] [address] [id number] [address] [place] [address], [place] [address] Aug, [facility] [address] [id number] [address] [place] [address], [place] [address] Aug, [facility] [address] [id number] [address] [place] [address], [place] [address] Aug, [facility] [address] [id number] [address] [place] [address], [place] [address] Aug, [facility] [address] [id number] [address] [place] [address], [place] [address] Aug, [facility] [address] [id number] [address] [place] [address], [place] [address] Jul, [facility] [address] [id number] [address] [place] [address], [place] [address] June, [facility] [address] [id number] [address] [place] [address], [place] [address] May, [facility] [address] [id number] [address] [place] [address], [place] [address] Apr, [facility] [address] [id number] [address] [place] [address] [place] [address] 13 Mar, 2012 [facility] [address] [id number] [address] [place] [address], [place] [address] 11 Mar, 2012 [facility] [address] [id number] [address] [place] [address], [place] [address] 20 Jan, 2012 [facility] [address] [id number] [address] [place] [address], [place] [address] Jan, [facility] [address] [id number] [address] [place] [address], [place] [address] Jan, [facility] [address] [id number] [address] [place] [address], [place] [address] Jan, [facility] [address] [id number] [address] [place] [address], [place] [address] Jan, [facility] [address] [id number] [address] [place] [address], [place] [address] Jan, [facility] [address] [id number] [address] [place] [address], [place] [address] Jan, [facility] [address] [id number] [address] [place] [address], [place] [address] Jan, [facility] [address] [id number] [address] [place] [address], [place] [address] Jan, [facility] [address] [id number] [address] [place] [address], [place] [address] Jan, [facility] [address] [id number] [address] [place] [address], [place] [address] Dec, [facility] [address] [id number] [address] [place] [address], [place] [address] Dec, [facility] [address] [id number] [address] [place] [address], [place] [address] Dec, [facility] [address] [id number] [address] [place] [address], [place] [address] Dec, [facility] [address] [id number] [address] [place] [address], [place] [address] Dec, [facility] [address] [id number] [address] [place] [address], [place] [address] Dec, [facility] [address] [id number] [address] [place] [address], [place] [address] Nov, [facility] [address] [id number] [address] [place] [address], [place] [address] Nov, [facility] [address] [id number] [address] [place] [address], [place] [address] Oct, [facility] [address] [id number] [address] [place] [address], [place] [address] Oct, [facility] [address] [id number] [address] [place] [address], [place] [address] Oct, [facility] [address] [id number] [address] [place] [address], [place] [address] Oct, [facility] [address] [id number] [address] [place] [address], [place] [address] Sep, [facility] [address] [id number] [address] [place] [address], [place] [address] Sep, [facility] [address] [id number] [address] [place] [address], [place] [address] Aug, [facility] [address] [id number] [address] [place] [address], [place] [address] Aug, [facility] [address] [id number] [address] [place] [address], [place] [address] Aug, [facility] [address] [id number] [address] [place] [address], [place] [address] Aug, [facility] [address] [id number] [address] [place] [address], [place] [address] Aug, [facility] [address] [id number] [address] [place] [address], [place] [address] Aug, [facility] [address] [id number] [address] [place] [address], [place] [address] Jul, [facility] [address] [id number] [address] [place] [address], [place] [address] Jul, [facility] [address] [id number] [address] [place] [address], [place] [address] June, [facility] [address] [id number] [address] [place] [address], [place] [address] June, [facility] [address] [id number] [address] [place] [address], [place] [address] May, [facility] [address] [id number] [address] [place] [address], [place] [address] May, [facility] [address] [id number] [address] [place] [address], [place] [address] May, [facility] [facility] [address] [id number] [address] [place] [address], [place] [address] May, [facility] [address] [id number] [address] [place] [address], [place] [address] Apr, [facility] [address] [id number] [address] [place] [address], [place] [address] Apr, [facility] [address] [id number] [address] [place] [address], [place] [address] Apr, [facility] [address] [id number] [address] [place] [address], [place] [address] Apr, [facility] [address] [id number] [address] [place] [address], [place] [address] Mar, [facility] [address] [id number] [address] [place] [address], [place] [address] Mar, [facility] [address] [id number] [address] [place] [address], [place] [address] Feb, [facility] [address] [id number] [address] [place] [address], [place] [address] Feb, [facility] [address] [id number] [address] [place] [address], [place] [address] Feb, [facility] [address] [id number] [address] [place] [address], [place] [address] Feb, [facility] [address] [id number] [address] [place] [address], [place] [address] Feb, [facility] [address] [id number] [address] [place] [address], [place] [address] Jan, [facility] [address] [id number] [address] [place] [address], [place] [address] Dec, [facility] [address] [id number] [address] [place] [address], [place] [address] Dec, [facility] [address] [id number] [address] [place] [address], [place] [address] Dec, [facility] [address] [id number] [address] [place] [address], [place] [address] Nov, [facility] [address] [id number] [address] [place] [address], [place] [address] Nov, [facility] [address] [id number] [address] [place] [address], [place] [address] Aug, [facility] [address] [id number] [address] [place] [address], [place] [address] Jan, [facility] [address] [id number] [address] [place] [address], [place] [address] Dec, [facility] [address] [id number] [address] [place] [address], [place] [address] Nov, [facility] [address] [id number] [address] [place] [address], [place] [address] Jan, [facility] [address] [id number] [address] [place] [address], [place] [address] Jan, IMMUNIZATIONS No Known Immunizations SOCIAL HISTORY [...] breast Surgical History x 3 Hospitalization History [facility] surge [facility] Hospitalization History lt breast surgery(cancer)
--- OUTSIDE RECORDS SUMMARY | 2019-05-02 19:50 | XMS REPORT ---
Author Author Shannon MCCORMACK [facility] Address [address] [place] [address] Care Team Providers Care Phys Asst Name Role Phone LAMBERTO MCCORMACK Unavailable PROBLEMS Type Condition ICD9-CM Code IWN31-UL Code Onset Dates Condition S tatus SNOMED Code Problem Arthritis M19.90 Active 5698235 Problem Osteoarthritis M19.90 Active 22404 5006 Problem Major depression F32.9 Active 370 700983 Problem Essential hypertension I10 Active 12671649 Problem GERD (gastroesophageal reflux disease) K21.9 Active 417730809 Problem Insomnia G47.00 Active 338325250 Problem Anxiety F41.9 Active 07815502 Problem Major depressive disorder, recurrent episode, moderate F33.1 Active 955887365 Problem Hypothyroidism E03.9 Active 66879 008 Problem Borderline personality disorder F60.3 Active 38778630 Problem Migraine G43.909 Active 77841908 Problem Morbid (severe) obesity due to excess calories E66 .01 Active 008272080 Problem IZABEL on CPAP G47.33 Active 21035387 Problem Mixed incontinence urge and stress N39.46 Active 365516072 Problem Spinal stenosis M48.00 Active 7610 7001 Problem Open wound of right foot, initial encounter S91.30 1A Active [id number] Problem Body mass index (BMI) of 40.0-44.9 in adult Z68.41 Active 717385658 Problem Breast cancer C50.919 Active 764004 009 Problem Panic disorder F41.0 Active 86411 1005 Problem Other chronic pain G89.29 Active 8 2215606 Problem Type 2 diabetes mellitus E11.9 Activ e 70169972 Problem Diabetic polyneuropathy associated with type 2 d iabetes mellitus E11.42 Active 29647978 Problem Migraine with aura and without status migrainosu s, not intractable G43.109 Active 1061210 Problem Functional urinary incontinence R39.81 Active [id number] ALLERGIES No Information ENCOUNTERS Encounter Location Date Diagnosis [facility] [address] [address] Nov, [facility] [address] [facility] [id number] [address] [place] [address] Sep, [facility] [address] [address] Sep, [address] [address] Sep, [address] [address] Aug, [address] [address] Aug, [address] [address] Aug, Depression, major, recurrent, moderate 2 96.32 [place] [address] [facility] [id number] [address] [place] [address] Aug, Major depressive disorder, r ecurrent episode, moderate F33.1 ; Panic disorder F41.0 and Borderline personality disorder F60.[address] [address] Aug, Anxiety F41.9 ; Type 2 diabetes mellitus E11.9 ; Mixed incontinence urge and stress N39.46 ; Screening mammogram, encounter for Z12.31 and Morbid obesity E66.[address] [address] Aug, Type 2 diabetes mellitus E11.[address] [address] Aug, [address] [address] Aug, Scalp cyst L72.9 and Morbid obesity E66. [address] [address] Aug, [facility] [address] [facility] [id number] [address] [place] [address] Jul, Major depressive disorder, r ecurrent episode, moderate F33.1 ; Panic disorder F41.0 and Borderline personality disorder F60.3 [facility] [address] [place] [address] Jul, [facility] [address] [address] Jul, [facility] [address] [address] Jul[facility] [address] [address] Jul, [facility] [address] [address] Jul, [facility] [address] [address] Jul, Depression, major, recurrent, moderate 2 96.32 [facility] [address] [address] June, Type 2 diabetes mellitus E11.9 ; Morbid (severe) obesity due to excess calories E66.01 and Body mass index (BMI) of 40.0-44.9 in adult Z68.41 [facility] [address] [place] [address] June, [facility] [address] [place] [address] June, [facility] [address] [address] June, Type 2 diabetes mellitus E11.9 [facility] [address] [address] June, Type 2 diabetes mellitus E11.9 and Morbi d obesity E66.01 [facility] [address] [place] [address] June, [facility] [address] [place] [address] June, [facility] [address] [address] June, [facility] [address] [address] June, Morbid obesity E66.01 [facility] [address] [address] May, [address] [address] May, [address] [address] May, [address] [address] May, Hypothyroidism E03.9 ; Type 2 diabetes m ellitus E11.9 and Morbid obesity E66.[address] [place] [address] May, Morbid obesity E66.01 [facility] [address] [facility] [id number] [address] [place] [address] May, Peripheral edema R60.9 [facility] [address] [facility] [id number] [address] [place] [address] May, Peripheral edema R60.9 ; Fadi ght gain R63.5 ; Shortness of breath R06.02 and Morbid obesity E66.01 [facility] [address] [facility] [place] [address] May, Pedal edema R60.0 and Morbid obesity E66 .[address] [address] May, [address] [address] May, [address] [address] May, [facility] [address] [facility] [id number] [address] [place] [address] Apr, Bilateral lower extremity ed maria del rosario R60.0 ; Morbid obesity E66.01 and Weight gain R63.[address] [address] Apr, [address] [address] Apr, [address] [address] Apr, Migraine with aura and without status mi grainosus, not intractable G43.[address] [place] [address] Apr, [address] [address] Apr, [address] [address] Apr, [address] [address] Apr, [address] [address] Apr, [address] [address] Apr, Type 2 diabetes mellitus E11.9 ; Pain in right knee M25.561 ; Other chronic pain G89.29 ; Pain in right shoulder M25.511 ; Morbid obesity E66.01 and Diabetic polyneuropathy associated with type 2 diabetes mellitus E11.[address] [address] Apr, [facility] [address] [facility] [id number] [address] [place] [address] Apr, [facility] [address] [facility] [place] [address] Mar, Open wound of right foot, initial encoun ter S91.301A and Morbid obesity E66.01 [facility] [address] [facility] [place] [address] Mar, Dysuria R30.0 and Painful urination R30. [address] [address] Mar, Depression, major, recurrent, moderate [address] [address] Mar, [address] [address] Mar, [facility] [address] [facility] [id number] [address] [place] [address] Feb, Dental examination Z01.20 [facility] [address] [place] [id number] [address] [place] [address] Nov, [facility] [address] [place] [id number] [address] [place] [address] Nov, [facility] [address] [place] [id number] [address] [place] [address] 08 Mar, 2015 Major depressive disorder, r ecurrent episode, moderate F33.1 ; Panic disorder F41.0 and Borderline personality disorder F60.3 [facility] [address] [place] [id number] [address] [place] [address] Sep, Depression, major, recurrent , moderate 296.32 ; Agoraphobia with panic disorder 300.21 and Borderline personality disorder 301.83 [facility] [address] [place] [id number] [place] [address] Aug, Depression, major, recurrent , moderate 296.32 ; Panic disorder without agoraphobia 300.01 and Borderline personality disorder 301.83 [facility] [address] [place] [id number] [place] [address] 16 Jul, 2014 Depression, major, recurrent , moderate 296.32 ; Agoraphobia with panic disorder 300.21 and Posttraumatic stress disorder 309.81 [facility] [address] [place] [id number] [address] [place] [address] 30 May, 2014 [facility] [address] [place] [id number] [address] [place] [address] 14 May, 2014 [facility] [address] [place] [id number] [address] [place] [address] May, [facility] [address] [place] [id number] [address] [place] [address] 10 Apr, 2014 [facility] [address] [place] [id number] [address] [place] [address] 10 Apr, 2014 [facility] [address] [place] [id number] [place] [address] Apr, [facility] [address] [id number] [address] [place] [address], [place] [address] Apr, [facility] [address] [id number] [address] [place] [address], [place] [address] Mar, [facility] [address] [id number] [address] [place] [address], [place] [address] Mar, [facility] [address] [id number] [address] [place] [address], [place] [address] Mar, [facility] [address] [id number] [address] [place] [address], [place] [address] Mar, [facility] [address] [id number] [address] [place] [address], [place] [address] Feb, [facility] [address] [id number] [address] [place] [address] Feb, [facility] [address] [id number] [address] [place] [address] Jan, [facility] [address] [id number] [address] [place] [address] Jan, [facility] [address] [id number] [address] [place] [address] Jan, [facility] [address] [id number] [address] [place] [address] Jan, [facility] [address] [id number] [address] [place] [id number] Dec, [facility] [address] [id number] [address] [place] [id number] Dec, [facility] [address] [id number] [address] [place] [address] Dec, [facility] [address] [id number] [address] [place] [address] Dec, [facility] [address] [id number] [address] [place] [address], [place] [address] Dec, [facility] [address] [id number] [address] [place] [address], [place] [address] Nov, [facility] [address] [id number] [address] [place] [address], [place] [address] Nov, [facility] [address] [id number] [address] [place] [address], [place] [address] Nov, [facility] [address] [id number] [address] [place] [address], [place] [address] Nov, [facility] [address] [id number] [address] [place] [address], [place] [address] Nov, [facility] [address] [id number] [address] [place] [address], [place] [address] Nov, [facility] [address] [id number] [address] [place] [address], [place] [address] Nov, [facility] [address] [id number] [address] [place] [address], [place] [address] Nov, [facility] [address] [id number] [address] [place] [address], [place] [address] Oct, [facility] [address] [id number] [address] [place] [address], [place] [address] Oct, [facility] [address] [id number] [address] [place] [address], [place] [address] Sep, [facility] [address] [id number] [address] [place] [address], [place] [address] Sep, [facility] [address] [id number] [address] [place] [address], [place] [address] Sep, [facility] [address] [id number] [address] [place] [address], [place] [address] Sep, [facility] [address] [id number] [address] [place] [address], [place] [address] Sep, [facility] [address] [id number] [address] [place] [address], [place] [address] Sep, [facility] [address] [id number] [address] [place] [address], [place] [address] Jul, [facility] [address] [id number] [address] [place] [address], [place] [address] Jul, [facility] [address] [id number] [address] [place] [address], [place] [address] June, [facility] [address] [id number] [address] [place] [address], [place] [address] June, [facility] [address] [id number] [address] [place] [address], [place] [address] June, [facility] [address] [id number] [address] [place] [address], [place] [address] June, [facility] [address] [id number] [address] [place] [address], [place] [address] May, [facility] [address] [id number] [address] [place] [address], [place] [address] May, [facility] [address] [id number] [address] [place] [address], [place] [address] May, [facility] [address] [id number] [address] [place] [address], [place] [address] May, [facility] [address] [id number] [address] [place] [address], [place] [address] Apr, [facility] [address] [id number] [address] [place] [address], [place] [address] Apr, [facility] [address] [id number] [address] [place] [address], [place] [address] Mar, [facility] [address] [id number] [address] [place] [address], [place] [address] Mar, [facility] [address] [id number] [address] [place] [address], [place] [address] 13 Feb, 2013 [facility] [address] [id number] [address] [place] [address], [place] [address] 13 Feb, 2013 [facility] [address] [id number] [address] [place] [address], [place] [address] 09 Feb, 2013 [facility] [address] [id number] [address] [place] [address], [place] [address] Feb, [facility] [address] [id number] [address] [place] [address], [place] [address] Dec, [facility] [address] [id number] [address] [place] [address], [place] [address] Dec, [facility] [address] [id number] [address] [place] [address], [place] [address] Dec, [facility] [address] [id number] [address] [place] [address], [place] [address] Dec, [facility] [address] [id number] [address] [place] [address], [place] [address] Nov, [facility] [address] [id number] [address] [place] [address], [place] [address] Nov, [facility] [address] [id number] [address] [place] [address], [place] [address] 16 Nov, 2012 [facility] [address] [id number] [address] [place] [address], [place] [address] 16 Nov, 2012 [facility] [address] [id number] [address] [place] [address], [place] [address] 23 Oct, 2012 [facility] [address] [id number] [address] [place] [address], [place] [address] 16 Oct, 2012 [facility] [address] [id number] [address] [place] [address], [place] [address] 10 Oct, 2012 [facility] [address] [id number] [address] [place] [address], [place] [address] 03 Oct, 2012 [facility] [address] [id number] [address] [place] [address], [place] [address] Aug, [facility] [address] [id number] [address] [place] [address], [place] [address] Aug, [facility] [address] [id number] [address] [place] [address], [place] [address] Aug, [facility] [address] [id number] [address] [place] [address], [place] [address] Aug, [facility] [address] [id number] [address] [place] [address], [place] [address] Aug, [facility] [address] [id number] [address] [place] [address], [place] [address] Jul, [facility] [address] [id number] [address] [place] [address], [place] [address] June, [facility] [address] [id number] [address] [place] [address], [place] [address] May, [facility] [address] [id number] [address] [place] [address], [place] [address] Apr, [facility] [address] [id number] [address] [place] [address], [place] [address] Mar, [facility] [address] [id number] [address] [place] [address], [place] [address] Mar, [facility] [address] [id number] [address] [place] [address], [place] [address] Jan, [facility] [address] [id number] [address] [place] [address], [place] [address] Jan, [facility] [address] [id number] [address] [place] [address], [place] [address] Jan, [facility] [address] [id number] [address] [place] [address], [place] [address] Jan, [facility] [address] [id number] [address] [place] [address], [place] [address] Jan, [facility] [address] [id number] [address] [place] [address], [place] [address] Jan, [facility] [address] [id number] [address] [place] [address], [place] [address] Jan, [facility] [address] [id number] [address] [place] [address], [place] [address] Jan, [facility] [address] [id number] [address] [place] [address], [place] [address] Jan, [facility] [address] [id number] [address] [place] [address], [place] [address] Jan, [facility] [address] [id number] [address] [place] [address], [place] [address] Dec, [facility] [address] [id number] [address] [place] [address], [place] [address] Dec, [facility] [address] [id number] [address] [place] [address], [place] [address] Dec, [facility] [address] [id number] [address] [place] [address], [place] [address] Dec, [facility] [address] [id number] [address] [place] [address], [place] [address] Dec, [facility] [address] [id number] [address] [place] [address], [place] [address] Dec, [facility] [address] [id number] [address] [place] [address], [place] [address] Nov, [facility] [address] [id number] [address] [place] [address], [place] [address] Nov, [facility] [address] [id number] [address] [place] [address], [place] [address] 24 Oct, 2011 [facility] [address] [id number] [address] [place] [address], [place] [address] 24 Oct, 2011 [facility] [address] [id number] [address] [place] [address], [place] [address] Oct, [facility] [address] [id number] [address] [place] [address], [place] [address] Oct, [facility] [address] [id number] [address] [place] [address], [place] [address] Sep, [facility] [address] [id number] [address] [place] [address], [place] [address] Sep, [facility] [address] [id number] [address] [place] [address], [place] [address] Aug, [facility] [address] [id number] [address] [place] [address], [place] [address] Aug, [facility] [address] [id number] [address] [place] [address], [place] [address] Aug, [facility] [address] [id number] [address] [place] [address], [place] [address] Aug, [facility] [address] [id number] [address] [place] [address], [place] [address] Aug, [facility] [address] [id number] [address] [place] [address], [place] [address] Aug, [facility] [address] [id number] [address] [place] [address], [place] [address] Jul, [facility] [address] [id number] [address] [place] [address], [place] [address] Jul, [facility] [address] [id number] [address] [place] [address], [place] [address] June, [facility] [address] [id number] [address] [place] [address], [place] [address] June, [facility] [address] [id number] [address] [place] [address], [place] [address] May, [facility] [address] [id number] [address] [place] [address], [place] [address] May, [facility] [address] [id number] [address] [place] [address], [place] [address] 05 May, 2011 [facility] [address] [id number] [address] [place] [address], [place] [address] May, [facility] [address] [id number] [address] [place] [address], [place] [address] Apr, [facility] [address] [id number] [address] [place] [address], [place] [address] Apr, [facility] [address] [id number] [address] [place] [address], [place] [address] Apr, [facility] [address] [id number] [address] [place] [address], [place] [address] Apr, [facility] [address] [id number] [address] [place] [address], [place] [address] Mar, [facility] [address] [id number] [address] [place] [address], [place] [address] Mar, [facility] [address] [id number] [address] [place] [address], [place] [address] Feb, [facility] [address] [id number] [address] [place] [address], [place] [address] Feb, [facility] [address] [id number] [address] [place] [address], [place] [address] Feb, [facility] [address] [id number] [address] [place] [address], [place] [address] Feb, [facility] [address] [id number] [address] [place] [address], [place] [address] Feb, [facility] [address] [id number] [address] [place] [address], [place] [address] Jan, [facility] [address] [id number] [address] [place] [address], [place] [address] Dec, [facility] [address] [id number] [address] [place] [id number] Dec, [facility] [address] [id number] [address] [place] [id number] Dec, [facility] [address] [id number] [address] [place] [id number] Nov, [facility] [address] [id number] [address] [place] [id number] Nov, [facility] [address] [id number] [address] [place] [id number] Aug, [facility] [address] [id number] [address] [place] [phone] Jan, [facility] [address] [id number] [address] [place] [phone] Dec, [facility] [address] [id number] [address] [place] [id number] Nov, [facility] [address] [id number] [address] [place] [phone] Jan, [facility] [address] [facility] [id number] [address] [place] [phone] Jan, IMMUNIZATIONS No Known Immunizations SOCIAL HISTORY Never Assessed REASON FOR VISIT PLAN OF CARE VITAL SIGNS MEDICATIONS Unknown Medications RESULTS No Results PROCEDURES Procedure Date Ordered Result Body Site PSYTX PT&/FAMILY 45 MINUTES Oct 07, 2013 INSTRUCTIONS MEDICATIONS ADMINISTERED No Known Medications [...] x 3 Hospitalization History [facility] [address] [place] [id number] for back surge ry Hospitalization History lt breast surgery(cancer)
--- OUTSIDE RECORDS SUMMARY | 2019-05-02 19:50 | XMS REPORT ---
Author Author Filipe, Shannon Doctor Organization [facility] Address Unknown Phone Unavailable Care Team Providers Care Screen Room Operator Name Role Phone Migration, Doctor Unavailable Unavailable PROBLEMS Type Condition ICD9-CM Code [id number] Code Onset Dates Condition S tatus SNOMED Code Problem Arthritis M19.90 Active 3736598 Problem Osteoarthritis M19.90 Active 73203 5006 Problem Major depression F32.9 Active 370 128017 Problem Essential hypertension I10 Active 23320926 Problem GERD (gastroesophageal reflux disease) K21.9 Active 970009942 Problem Insomnia G47.00 Active 567968843 Problem Anxiety F41.9 Active 14669112 Problem Major depressive disorder, recurrent episode, moderate F33.1 Active 615701708 Problem Hypothyroidism E03.9 Active 82189 008 Problem Borderline personality disorder F60.3 Active 32460054 Problem Migraine G43.909 Active 87227310 Problem Morbid (severe) obesity due to excess calories E66 .01 Active 252160771 Problem IZABEL on CPAP G47.33 Active 90466414 Problem Mixed incontinence urge and stress N39.46 Active 399854857 Problem Spinal stenosis M48.00 Active 7610 7001 Problem Open wound of right foot, initial encounter S91.30 1A Active [id number] Problem Body mass index (BMI) of 40.0-44.9 in adult Z68.41 Active 356350240 Problem Breast cancer C50.919 Active 846631 009 Problem Panic disorder F41.0 Active 61206 1005 Problem Other chronic pain G89.29 Active 8 1023006 Problem Type 2 diabetes mellitus E11.9 Activ e 43009284 Problem Diabetic polyneuropathy associated with type 2 d iabetes mellitus E11.42 Active 65448487 Problem Migraine with aura and without status migrainosu s, not intractable G43.109 Active 4252692 Problem Functional urinary incontinence R39.81 Active [id number] ALLERGIES No Information ENCOUNTERS Encounter Location Date Diagnosis [address] [address] 16 Nov, 2018 [facility] [address] [facility] [id number] [address] [place] [address] Sep, [address] [address] Sep, [address] [address] Sep, [address] [address] Aug, [address] [address] Aug, [address] [address] Aug, Depression, major, recurrent, moderate 2 96.32 [place] [address] [facility] [id number] [address] [place] [address] Aug, Major depressive disorder, r ecurrent episode, moderate F33.1 ; Panic disorder F41.0 and Borderline personality disorder F60.[address] [address] Aug, Anxiety F41.9 ; Type 2 diabetes mellitus E11.9 ; Mixed incontinence urge and stress N39.46 ; Screening mammogram, encounter for Z12.31 and Morbid obesity E66.[address] [address] Aug, Type 2 diabetes mellitus E11.[address] [address] Aug, [address] [address] Aug, Scalp cyst L72.9 and Morbid obesity E66. [address] [address] Aug, [facility] [address] [facility] [id number] [address] [place] [address] Jul, Major depressive disorder, r ecurrent episode, moderate F33.1 ; Panic disorder F41.0 and Borderline personality disorder F60.[address] [address] Jul, [facility] [address] [place] [address] Jul, [facility] [address] [address] Jul, [facility] [address] [address] Jul, [facility] [address] [address] Jul, [facility] [address] [address] Jul, Depression, major, recurrent, moderate 2 96.32 [facility] [address] [place] [address] June, Type 2 diabetes mellitus E11.9 ; Morbid (severe) obesity due to excess calories E66.01 and Body mass index (BMI) of 40.0-44.9 in adult Z68.41 [facility] [address] [address] June, [facility] [address] [place] [address] June, [facility] [address] [place] [address] June, Type 2 diabetes mellitus E11.9 [facility] [address] [address] June, Type 2 diabetes mellitus E11.9 and Morbi d obesity E66.01 [facility] [address] [place] [address] June, [facility] [address] [address] June, [facility] [address] [place] [address] June, [facility] [address] [address] June, Morbid obesity E66.01 [facility] [address] [address] May, [facility] [address] [address] May, [address] [address] May, [address] [address] May, Hypothyroidism E03.9 ; Type 2 diabetes m ellitus E11.9 and Morbid obesity E66.[address] [address] May, Morbid obesity E66.01 [facility] [address] [facility] [id number] [address] [place] [address] May, Peripheral edema R60.9 [facility] [address] [facility] [id number] [address] [place] [address] May, Peripheral edema R60.9 ; Fadi ght gain R63.5 ; Shortness of breath R06.02 [address] Morbid obesity E66.01 [facility] [address] [place] [facility] [place] [address] May, Pedal edema R60.0 and Morbid obesity E66 .[address] [address] May, [address] [address] May, [address] [address] May, [facility] [address] [facility] [id number] [address] [place] [address] Apr, Bilateral lower extremity ed maria del rosario R60.0 ; Morbid obesity E66.01 and Weight gain R63.[address] [address] Apr, [address] [address] Apr, [address] [address] Apr, Migraine with aura and without status mi grainosus, not intractable G43.[address] [address] Apr, [facility] [address] [address] Apr, [facility] [place] [address] [address] Apr, [facility] [place] [address] [address] Apr, [facility] [place] [address] [address] Apr, [address] [address] Apr, Type 2 diabetes mellitus E11.9 ; Pain in right knee M25.561 ; Other chronic pain G89.29 ; Pain in right shoulder M25.511 ; Morbid obesity E66.01 and Diabetic polyneuropathy associated with type 2 diabetes mellitus E11.[address] [address] Apr, [facility] [address] [facility] [id number] [address] [place] [address] Apr, [facility] [place] [address] [place] [facility] [place] [address] Mar, Open wound of right foot, initial encoun ter S91.301A and Morbid obesity E66.01 [facility] [place] [facility] [address] [place] [facility] [place] [address] Mar, Dysuria R30.0 and Painful urination R30. 9 [facility] [place] [address] [address] Mar, Depression, major, recurrent, moderate [address] [address] Mar, [address] [address] Mar, [facility] [address] [facility] [id number] [address] [place] [address] Feb, Dental examination Z01.20 [place] [place] [address] [address] Nov, [facility] [address] [address] Nov, [facility] [address] [address] 08 Mar, 2015 Major depressive disorder, r ecurrent episode, moderate F33.1 ; Panic disorder F41.0 and Borderline personality disorder F60.3 [facility] [address] [address] Sep, Depression, major, recurrent , moderate 296.32 ; Agoraphobia with panic disorder 300.21 and Borderline personality disorder 301.83 [facility] [address] [address] Aug, Depression, major, recurrent , moderate 296.32 ; Panic disorder without agoraphobia 300.01 and Borderline personality disorder 301.83 [facility] [address] [address] Jul, Depression, major, recurrent , moderate 296.32 ; Agoraphobia with panic disorder 300.21 and Posttraumatic stress disorder 309.81 [facility] [address] [address] 30 May, 2014 [facility] [address] [address] 14 May, 2014 [facility] [address] [address] 13 May, 2014 [facility] [address] [address] Apr, [facility] [address] [address] Apr, [facility] [address] [address] 05 Apr, 2014 [facility] [address] [address] Apr, [facility] [address] [id number] [address] [place] [address], [place] [address] Mar, [facility] [address] [id number] [address] [place] [address], [place] [address] Mar, 2014 [facility] [address] [id number] [address] [place] [address], [place] [address] Mar, [facility] [address] [id number] [address] [place] [address], [place] [address] Mar, [facility] [address] [id number] [address] [place] [address], [place] [address] Feb, [facility] [address] [id number] [address] [place] [address], [place] [address] Feb, [facility] [address] [id number] [address] [place] [address], [place] [address] Jan, [facility] [address] [id number] [address] [place] [address] Jan, [facility] [address] [id number] [address] [place] [address], [place] [address] Jan, [facility] [address] [id number] [address] [place] [address], [place] [address] Jan, [facility] [address] [id number] [address] [place] [id number] Dec, [facility] [address] [id number] [address] [place] [id number] Dec, [facility] [address] [id number] [address] [place] [address], [place] [address] Dec, [facility] [address] [id number] [address] [place] [address], [place] [address] Dec, [facility] [address] [id number] [address] [place] [address] Dec, [facility] [address] [id number] [address] [place] [address], [place] [address] Nov, [facility] [address] [id number] [address] [place] [address], [place] [address] Nov, [facility] [address] [id number] [address] [place] [address], [place] [address] Nov, [facility] [address] [id number] [address] [place] [address], [place] [address] Nov, [facility] [address] [id number] [address] [place] [address], [place] [address] Nov, [facility] [address] [id number] [address] [place] [address], [place] [address] Nov, [facility] [address] [id number] [address] [place] [address], [place] [address] Nov, [facility] [address] [id number] [address] [place] [address], [place] [address] Nov, [facility] [address] [id number] [address] [place] [address], [place] [address] Oct, [facility] [address] [id number] [address] [place] [address], [place] [address] Oct, [facility] [address] [id number] [address] [place] [address], [place] [address] Sep, [facility] [address] [id number] [address] [place] [address], [place] [address] Sep, [facility] [address] [id number] [address] [place] [address], [place] [address] Sep, [facility] [address] [id number] [address] [place] [address], [place] [address] Sep, [facility] [address] [id number] [address] [place] [address], [place] [address] Sep, [facility] [address] [id number] [address] [place] [address], [place] [address] Sep, [facility] [address] [id number] [address] [place] [address], [place] [address] Jul, [facility] [address] [id number] [address] [place] [address], [place] [address] Jul, [facility] [address] [id number] [address] [place] [address], [place] [address] June, [facility] [address] [id number] [address] [place] [address], [place] [address] June, [facility] [address] [id number] [address] [place] [address], [place] [address] June, [facility] [address] [id number] [address] [place] [address], [place] [address] June, [facility] [address] [id number] [address] [place] [address], [place] [address] May, [facility] [address] [id number] [address] [place] [address], [place] [address] May, [facility] [address] [id number] [address] [place] [address], [place] [address] May, [facility] [address] [id number] [address] [place] [address], [place] [address] May, [facility] [address] [id number] [address] [place] [address], [place] [address] Apr, [facility] [address] [id number] [address] [place] [address], [place] [address] Apr, [facility] [address] [id number] [address] [place] [address], [place] [address] Mar, [facility] [address] [id number] [address] [place] [address], [place] [address] Mar, [facility] [address] [id number] [address] [place] [address], [place] [address] Feb, [facility] [address] [id number] [address] [place] [address], [place] [address] Feb, [facility] [address] [id number] [address] [place] [address], [place] [address] Feb, [facility] [address] [id number] [address] [place] [address], [place] [address] Feb, [facility] [address] [id number] [address] [place] [address], [place] [address] Dec, [facility] [address] [id number] [address] [place] [address], [place] [address] Dec, [facility] [address] [id number] [address] [place] [address], [place] [address] Dec, [facility] [address] [id number] [address] [place] [address], [place] [address] Dec, [facility] [address] [id number] [address] [place] [address], [place] [address] Nov, [facility] [address] [id number] [address] [place] [address], [place] [address] Nov, [facility] [address] [id number] [address] [place] [address], [place] [address] 16 Nov, 2012 [facility] [address] [id number] [address] [place] [address], [place] [address] 16 Nov, 2012 [facility] [address] [id number] [address] [place] [address], [place] [address] 23 Oct, 2012 [facility] [address] [id number] [address] [place] [address], [place] [address] 16 Oct, 2012 [facility] [address] [id number] [address] [place] [address], [place] [address] 10 Oct, 2012 [facility] [address] [id number] [address] [place] [address], [place] [address] 03 Oct, 2012 [facility] [address] [id number] [address] [place] [address], [place] [address] Aug, [facility] [address] [id number] [address] [place] [address], [place] [address] Aug, [facility] [address] [id number] [address] [place] [address], [place] [address] Aug, [facility] [address] [id number] [address] [place] [address], [place] [address] Aug, [facility] [address] [id number] [address] [place] [address], [place] [address] Aug, [facility] [address] [id number] [address] [place] [address], [place] [address] Jul, [facility] [address] [id number] [address] [place] [address], [place] [address] June, [facility] [address] [id number] [address] [place] [address], [place] [address] May, [facility] [address] [id number] [address] [place] [address], [place] [address] Apr, [facility] [address] [id number] [address] [place] [address], [place] [address] Mar, [facility] [address] [id number] [address] [place] [address], [place] [address] Mar, [facility] [address] [id number] [address] [place] [address], [place] [address] Jan, [facility] [address] [id number] [address] [place] [address], [place] [address] Jan, [facility] [address] [id number] [address] [place] [address], [place] [address] Jan, [facility] [address] [id number] [address] [place] [address], [place] [address] Jan, [facility] [address] [id number] [address] [place] [address], [place] [address] Jan, [facility] [address] [id number] [address] [place] [address], [place] [address] 13 Jan, 2012 [facility] [address] [id number] [address] [place] [address], [place] [address] Jan, [facility] [address] [id number] [address] [place] [address], [place] [address] Jan, [facility] [address] [id number] [address] [place] [address], [place] [address] Jan, [facility] [address] [id number] [address] [place] [address], [place] [address] Jan, [facility] [address] [id number] [address] [place] [address], [place] [address] Dec, [facility] [address] [id number] [address] [place] [address], [place] [address] Dec, [facility] [address] [id number] [address] [place] [address], [place] [address] Dec, [facility] [address] [id number] [address] [place] [address], [place] [address] Dec, [facility] [address] [id number] [address] [place] [address], [place] [address] Dec, [facility] [address] [id number] [address] [place] [address], [place] [address] Dec, [facility] [address] [id number] [address] [place] [address], [place] [address] Nov, [facility] [address] [id number] [address] [place] [address], [place] [address] Nov, [facility] [address] [id number] [address] [place] [address], [place] [address] 24 Oct, 2011 [facility] [address] [id number] [address] [place] [address], [place] [address] 24 Oct, 2011 [facility] [address] [id number] [address] [place] [address], [place] [address] 24 Oct, 2011 [facility] [address] [id number] [address] [place] [address], [place] [address] Oct, [facility] [address] [id number] [address] [place] [address], [place] [address] Sep, [facility] [address] [id number] [address] [place] [address], [place] [address] Sep, [facility] [address] [id number] [address] [place] [address], [place] [address] Aug, [facility] [address] [id number] [address] [place] [address], [place] [address] Aug, [facility] [address] [id number] [address] [place] [address], [place] [address] Aug, [facility] [address] [id number] [address] [place] [address], [place] [address] Aug, [facility] [address] [id number] [address] [place] [address], [place] [address] Aug, [facility] [address] [id number] [address] [place] [address], [place] [address] Aug, [facility] [address] [id number] [address] [place] [address], [place] [address] Jul, [facility] [address] [id number] [address] [place] [address], [place] [address] Jul, [facility] [address] [id number] [address] [place] [address], [place] [address] June, [facility] [address] [id number] [address] [place] [address], [place] [address] June, [facility] [address] [id number] [address] [place] [address], [place] [address] May, [facility] [address] [id number] [address] [place] [address], [place] [address] 17 May, 2011 [facility] [address] [id number] [address] [place] [address], [place] [address] May, [facility] [address] [id number] [address] [place] [address], [place] [address] May, [facility] [address] [id number] [address] [place] [address], [place] [address] Apr, [facility] [address] [id number] [address] [place] [address], [place] [address] Apr, [facility] [address] [id number] [address] [place] [address], [place] [address] Apr, [facility] [address] [id number] [address] [place] [address], [place] [address] Apr, [facility] [address] [id number] [address] [place] [address], [place] [address] Mar, [facility] [address] [id number] [address] [place] [address], [place] [address] Mar, [facility] [address] [id number] [address] [place] [address], [place] [address] Feb, [facility] [address] [id number] [address] [place] [address], [place] [address] Feb, [facility] [address] [id number] [address] [place] [address], [place] [address] Feb, [facility] [address] [id number] [address] [place] [address], [place] [address] Feb, [facility] [address] [id number] [address] [place] [address], [place] [address] Feb, [facility] [address] [id number] [address] [place] [address], [place] [address] Jan, [facility] [address] [id number] [address] [place] [address], [place] [address] Dec, [facility] [address] [id number] [address] [place] [address], [place] [address] Dec, [facility] [address] [id number] [address] [place] [address] Dec, [facility] [address] [id number] [address] [place] [address] Nov, [facility] [address] [id number] [address] [place] [address] Nov, [facility] [address] [id number] [address] [place] [address] Aug, [facility] [address] [id number] [address] [place] [id number] Jan, [facility] [address] [id number] [address] [place] [address] Dec, [facility] [address] [id number] [address] [place] [id number] Nov, [facility] [address] [id number] [address] [place] [id number] Jan, [facility] [facility] [address] [id number] [address] [place] [id number] Jan, IMMUNIZATIONS No Known Immunizations SOCIAL HISTORY [...] 3 Hospitalization [facility] Hospitalization History lt breast surgery(cancer)
--- OUTSIDE RECORDS SUMMARY | 2019-05-02 19:50 | XMS REPORT ---
Author Author Shannon THORNTON Organization [facility] Address [address] [place] [address] Care Team Providers Care Turning Lathe Tender Name Role Phone STEW THORNTON Unavailable PROBLEMS Type Condition ICD9-CM Code [id number] Code Onset Dates Condition S tatus SNOMED Code Problem Arthritis M19.90 Active 1894641 Problem Osteoarthritis M19.90 Active 20272 5006 Problem Major depression F32.9 Active 370 479400 Problem Essential hypertension I10 Active 66953635 Problem GERD (gastroesophageal reflux disease) K21.9 Active 299558101 Problem Insomnia G47.00 Active 161696517 Problem Anxiety F41.9 Active 22999481 Problem Major depressive disorder, recurrent episode, moderate F33.1 Active 216543549 Problem Hypothyroidism E03.9 Active 72063 008 Problem Borderline personality disorder F60.3 Active 73209820 Problem Migraine G43.909 Active 28706877 Problem Morbid (severe) obesity due to excess calories E66 .01 Active 373430700 Problem IZABEL on CPAP G47.33 Active 44380175 Problem Mixed incontinence urge and stress N39.46 Active 525820124 Problem Spinal stenosis M48.00 Active 7610 7001 Problem Open wound of right foot, initial encounter S91.30 1A Active [id number] Problem Body mass index (BMI) of 40.0-44.9 in adult Z68.41 Active 288212836 Problem Breast cancer C50.919 Active 794439 009 Problem Panic disorder F41.0 Active 34216 1005 Problem Other chronic pain G89.29 Active 8 4252054 Problem Type 2 diabetes mellitus E11.9 Activ e 26751023 Problem Diabetic polyneuropathy associated with type 2 d iabetes mellitus E11.42 Active 88501513 Problem Migraine with aura and without status migrainosu s, not intractable G43.109 Active 6918513 Problem Functional urinary incontinence R39.81 Active [id number] ALLERGIES No Information ENCOUNTERS Encounter Location Date Diagnosis [facility] [address] [address] Nov, [facility] [address] [facility] [id number] [address] [place] [address] Sep, [facility] [address] [address] Sep, [address] [address] Sep, [facility] [address] [address] Aug, [facility] [address] [address] Aug, [address] [address] Aug, Depression, major, recurrent, moderate 2 96.32 [place] [address] [facility] [id number] [address] [place] [address] Aug, Major depressive disorder, r ecurrent episode, moderate F33.1 ; Panic disorder F41.0 and Borderline personality disorder F60.3 [facility] [address] [address] Aug, Anxiety F41.9 ; Type 2 diabetes mellitus E11.9 ; Mixed incontinence urge and stress N39.46 ; Screening mammogram, encounter for Z12.31 and Morbid obesity E66.[address] [address] Aug, Type 2 diabetes mellitus E11.[address] [address] Aug, [address] [address] Aug, Scalp cyst L72.9 and Morbid obesity E66. [address] [address] Aug, [facility] [address] [facility] [id number] [address] [place] [address] Jul, Major depressive disorder, r ecurrent episode, moderate F33.1 ; Panic disorder F41.0 and Borderline personality disorder F60.3 [facility] [address] [place] [address] Jul, [facility] [address] [address] Jul, [facility] [address] [address] Jul, [facility] [address] [address] Jul, [facility] [address] [address] Jul, [facility] [address] [address] Jul, Depression, major, recurrent, moderate 2 96.32 [facility] [address] [address] June, Type 2 diabetes mellitus E11.9 ; Morbid (severe) obesity due to excess calories E66.01 and Body mass index (BMI) of 40.0-44.9 in adult Z68.41 [facility] [address] [place] [address] June, [facility] [address] [address] June, [facility] [address] [address] June, Type 2 diabetes mellitus E11.[address] [address] June, Type 2 diabetes mellitus E11.9 and Morbi d obesity E66.01 [facility] [address] [address] June, [facility] [address] [address] June, [facility] [address] [address] June, [facility] [address] [address] June, Morbid obesity E66.01 [facility] [address] [address] May, [facility] [address] [address] May, [facility] [address] [address] May, [address] [address] May, Hypothyroidism E03.9 ; Type 2 diabetes m ellitus E11.9 and Morbid obesity E66.[address] [address] May, Morbid obesity E66.01 [facility] [address] [facility] [id number] [address] [place] [address] May, Peripheral edema R60.9 [facility] [address] [facility] [id number] [address] [place] [address] May, Peripheral edema R60.9 ; Fadi ght gain R63.5 ; Shortness of breath R06.02 and Morbid obesity E66.01 [facility] [address] [facility] [place] [address] May, Pedal edema R60.0 and Morbid obesity E66 .01 [facility] [address] [address] May, [address] [address] May, [address] [address] May, [facility] [address] [facility] [id number] [address] [place] [address] Apr, Bilateral lower extremity ed maria del rosario R60.0 ; Morbid obesity E66.01 and Weight gain R63.5 [facility] [address] [address] Apr, [facility] [address] [address] Apr, [address] [address] Apr, Migraine with aura and without status mi grainosus, not intractable G43.[address] [address] Apr, [address] [address] Apr, [address] [address] Apr, [address] [address] Apr, [address] [address] Apr, [address] [address] Apr, Type 2 diabetes mellitus E11.9 ; Pain in right knee M25.561 ; Other chronic pain G89.29 ; Pain in right shoulder M25.511 ; Morbid obesity E66.01 and Diabetic polyneuropathy associated with type 2 diabetes mellitus E11.[address] [address] Apr, [facility] [address] [facility] [id number] [address] [place] [address] Apr, [facility] [address] [facility] [place] [place] [address] Mar, Open wound of right foot, initial encoun ter S91.301A and Morbid obesity E66.01 [facility] [address] [facility] [place] [address] Mar, Dysuria R30.0 and Painful urination R30. [address] [address] Mar, Depression, major, recurrent, moderate [address] [address] Mar, [address] [address] Mar, [facility] [address] [facility] [id number] [address] [place] [address] Feb, Dental examination Z01.20 [facility] [address] [place] [id number] [address] [place] [address] Nov, [facility] [address] [facility] [id number] [address] [place] [address] Nov, [facility] [address] [place] [id number] [address] [place] [address] 08 Mar, 2015 Major depressive disorder, r ecurrent episode, moderate F33.1 ; Panic disorder F41.0 and Borderline personality disorder F60.3 [facility] [address] [place] [id number] [address] [place] [address] Sep, Depression, major, recurrent , moderate 296.32 ; Agoraphobia with panic disorder 300.21 and Borderline personality disorder 301.83 [facility] [address] [place] [id number] [address] [place] [address] Aug, Depression, major, recurrent , moderate 296.32 ; Panic disorder without agoraphobia 300.01 and Borderline personality disorder 301.83 [facility] [address] [place] [id number] [address] [place] [address] 16 Jul, 2014 Depression, major, recurrent , moderate 296.32 ; Agoraphobia with panic disorder 300.21 and Posttraumatic stress disorder 309.81 [facility] [address] [place] [id number] [address] [place] [address] 30 May, 2014 [facility] [address] [place] [id number] [address] [place] [address] 14 May, 2014 [facility] [address] [place] [id number] [address] [place] [address] 13 May, 2014 [facility] [address] [place] [id number] [address] [place] [address] 10 Apr, 2014 [facility] [address] [facility] [id number] [address] [place] [address] [address] Apr, 2014 [facility] [address] [place] [id number] [address] [place] [address] Apr, [facility] [address] [id number] [address] [place] [address], [place] [address] Apr, [facility] [address] [id number] [address] [place] [address], [place] [address] Mar, [facility] [address] [id number] [address] [place] [address], [place] [address] Mar, [facility] [address] [id number] [address] [place] [address] Mar, [facility] [address] [id number] [address] [place] [address], [place] [address] Mar, [facility] [address] [id number] [address] [place] [address], [place] [address] Feb, [facility] [address] [id number] [address] [place] [address] Feb, [facility] [address] [id number] [address] [place] [address] Jan, [facility] [address] [id number] [address] [place] [address] Jan, [facility] [address] [id number] [address] [place] [address] Jan, [facility] [address] [id number] [address] [place] [address] Jan, [facility] [address] [id number] [address] [place] [id number] Dec, [facility] [address] [id number] [address] [place] [id number] Dec, [facility] [address] [id number] [address] [place] [address] Dec, [facility] [address] [id number] [address] [place] [address] Dec, [facility] [address] [id number] [address] [place] [address], [place] [address] Dec, [facility] [address] [id number] [address] [place] [address], [place] [address] Nov, [facility] [address] [id number] [address] [place] [address], [place] [address] Nov, [facility] [address] [id number] [address] [place] [address], [place] [address] Nov, [facility] [address] [id number] [address] [place] [address], [place] [address] Nov, [facility] [address] [id number] [address] [place] [address], [place] [address] Nov, [facility] [address] [id number] [address] [place] [address], [place] [address] Nov, [facility] [address] [id number] [address] [place] [address], [place] [address] Nov, [facility] [address] [id number] [address] [place] [address], [place] [address] Nov, [facility] [address] [id number] [address] [place] [address], [place] [address] Oct, [facility] [address] [id number] [address] [place] [address], [place] [address] Oct, [facility] [address] [id number] [address] [place] [address], [place] [address] Sep, [facility] [address] [id number] [address] [place] [address], [place] [address] Sep, [facility] [address] [id number] [address] [place] [address], [place] [address] Sep, [facility] [address] [id number] [address] [place] [address], [place] [address] Sep, [facility] [address] [id number] [address] [place] [address], [place] [address] Sep, [facility] [address] [id number] [address] [place] [address], [place] [address] Sep, [facility] [address] [id number] [address] [place] [address], [place] [address] Jul, [facility] [address] [id number] [address] [place] [address], [place] [address] Jul, [facility] [address] [id number] [address] [place] [address], [place] [address] June, [facility] [address] [id number] [address] [place] [address], [place] [address] June, [facility] [address] [id number] [address] [place] [address], [place] [address] June, [facility] [address] [id number] [address] [place] [address], [place] [address] June, [facility] [address] [id number] [address] [place] [address], [place] [address] May, [facility] [address] [id number] [address] [place] [address], [place] [address] May, [facility] [address] [id number] [address] [place] [address], [place] [address] May, [facility] [address] [id number] [address] [place] [address], [place] [address] May, [facility] [address] [id number] [address] [place] [address], [place] [address] Apr, [facility] [address] [id number] [address] [place] [address], [place] [address] Apr, [facility] [address] [id number] [address] [place] [address], [place] [address] Mar, [facility] [address] [id number] [address] [place] [address], [place] [address] Mar, [facility] [address] [id number] [address] [place] [address], [place] [address] Feb, [facility] [address] [id number] [address] [place] [address], [place] [address] Feb, [facility] [address] [id number] [address] [place] [address] Feb, [facility] [address] [id number] [address] [place] [address], [place] [address] Feb, [facility] [address] [id number] [address] [place] [address], [place] [address] Dec, [facility] [address] [id number] [address] [place] [address], [place] [address] Dec, [facility] [address] [id number] [address] [place] [address], [place] [address] Dec, [facility] [address] [id number] [address] [place] [address], [place] [address] Dec, [facility] [address] [id number] [address] [place] [address], [place] [address] Nov, [facility] [address] [id number] [address] [place] [address], [place] [address] 21 Nov, 2012 [facility] [address] [id number] [address] [place] [address], [place] [address] 16 Nov, 2012 [facility] [address] [id number] [address] [place] [address], [place] [address] 16 Nov, 2012 [facility] [address] [id number] [address] [place] [address], [place] [address] 23 Oct, 2012 [facility] [address] [id number] [address] [place] [address], [place] [address] 16 Oct, 2012 [facility] [address] [id number] [address] [place] [address], [place] [address] 10 Oct, 2012 [facility] [address] [id number] [address] [place] [address], [place] [address] 03 Sep, 2012 [facility] [address] [id number] [address] [place] [address], [place] [address] Aug, [facility] [address] [id number] [address] [place] [address], [place] [address] Aug, [facility] [address] [id number] [address] [place] [address], [place] [address] Aug, [facility] [address] [id number] [address] [place] [address], [place] [address] Aug, [facility] [address] [id number] [address] [place] [address], [place] [address] Aug, [facility] [address] [id number] [address] [place] [address], [place] [address] Jul, [facility] [address] [id number] [address] [place] [address], [place] [address] June, [facility] [address] [id number] [address] [place] [address], [place] [address] May, [facility] [address] [id number] [address] [place] [address], [place] [address] Apr, [facility] [address] [id number] [address] [place] [address], [place] [address] Mar, [facility] [address] [id number] [address] [place] [address], [place] [address] Mar, [facility] [address] [id number] [address] [place] [address], [place] [address] Jan, [facility] [address] [id number] [address] [place] [address], [place] [address] Jan, [facility] [address] [id number] [address] [place] [address], [place] [address] Jan, [facility] [address] [id number] [address] [place] [address], [place] [address] Jan, [facility] [address] [id number] [address] [address] 13 Jan, 2012 [facility] [address] [id number] [address] [place] [address], [place] [address] Jan, [facility] [address] [id number] [address] [place] [address], [place] [address] Jan, [facility] [address] [id number] [address] [place] [address], [place] [address] Jan, [facility] [address] [id number] [address] [place] [address], [place] [address] Jan, [facility] [address] [id number] [address] [place] [address], [place] [address] Jan, [facility] [address] [id number] [address] [place] [address], [place] [address] Dec, [facility] [address] [id number] [address] [place] [address], [place] [address] Dec, [facility] [address] [id number] [address] [place] [address], [place] [address] Dec, [facility] [address] [id number] [address] [place] [address], [place] [address] Dec, [facility] [address] [id number] [address] [place] [address], [place] [address] Dec, [facility] [address] [id number] [address] [place] [address] Dec, [facility] [address] [id number] [address] [place] [address] Nov, [facility] [address] [id number] [address] [place] [address], [place] [address] Nov, [facility] [address] [id number] [address] [place] [address], [place] [address] 24 Oct, 2011 [facility] [address] [id number] [address] [place] [address], [place] [address] 24 Oct, 2011 [facility] [address] [id number] [address] [place] [address], [place] [address] Oct, [facility] [address] [id number] [address] [place] [address], [place] [address] Oct, [facility] [address] [id number] [address] [place] [address], [place] [address] Sep, [facility] [address] [id number] [address] [place] [address], [place] [address] Sep, [facility] [address] [id number] [address] [place] [address], [place] [address] Aug, [facility] [address] [id number] [address] [place] [address], [place] [address] Aug, [facility] [address] [id number] [address] [place] [address], [place] [address] Aug, [facility] [address] [id number] [address] [place] [address], [place] [address] Aug, [facility] [address] [id number] [address] [place] [address], [place] [address] Aug, [facility] [address] [id number] [address] [place] [address], [place] [address] Aug, [facility] [address] [id number] [address] [place] [address], [place] [address] Jul, [facility] [address] [id number] [address] [place] [address], [place] [address] Jul, [facility] [address] [id number] [address] [place] [address], [place] [id number] June, [facility] [address] [id number] [address] [place] [address], [place] [address] June, [facility] [address] [id number] [address] [place] [address], [place] [address] May, [facility] [address] [id number] [address] [place] [address], [place] [address] May, [facility] [address] [id number] [address] [place] [address], [place] [address] May, [facility] [address] [id number] [address] [place] [address], [place] [address] May, [facility] [address] [id number] [address] [place] [address], [place] [address] Apr, [facility] [address] [id number] [address] [place] [address], [place] [address] Apr, [facility] [address] [id number] [address] [place] [address], [place] [address] Apr, [facility] [address] [id number] [address] [place] [address], [place] [id number] Apr, [facility] [address] [id number] [address] [place] [address], [place] [address] Mar, [facility] [address] [id number] [address] [place] [address], [place] [address] Mar, [facility] [address] [id number] [address] [place] [address], [place] [address] Feb, [facility] [address] [id number] [address] [place] [address], [place] [address] Feb, [facility] [address] [id number] [address] [place] [address], [place] [id number] Feb, [facility] [address] [id number] [address] [place] [address], [place] [address] Feb, [facility] [address] [id number] [address] [place] [address], [place] [address] Feb, [facility] [address] [id number] [address] [place] [address], [place] [address] Jan, [facility] [address] [id number] [address] [place] [address], [place] [address] Dec, [facility] [address] [id number] [address] [place] [id number] Dec, [facility] [address] [id number] [address] [place] [phone] Dec, [facility] [address] [id number] [address] [place] [id number] Nov, [facility] [address] [id number] [address] [place] [id number] Nov, [facility] [address] [id number] [address] [place] [id number] Aug, [facility] [address] [id number] [address] [place] [id number] Jan, [facility] [address] [id number] [address] [place] [id number] Dec, [facility] [address] [address] [id number] [address] [place] [id number] Nov, [facility] [address] [id number] [address] [place] [id number] Jan, [facility] [address] [facility] [id number] [address] [place] [phone] Jan, IMMUNIZATIONS No Known Immunizations SOCIAL HISTORY [...] x 3 Hospitalization History [facility] [address] [place] [address] for back surge ry Hospitalization History lt breast surgery(cancer)
--- OUTSIDE RECORDS SUMMARY | 2019-05-02 19:50 | XMS REPORT ---
Author Author Shannon THORNTON Organization [facility] Address [address] [place] [address] Care Team Providers Care Treatment Manager Name Role Phone STEW THORNTON Unavailable PROBLEMS Type Condition ICD9-CM Code DES01-QM Code Onset Dates Condition S tatus SNOMED Code Problem Arthritis M19.90 Active 5459063 Problem Osteoarthritis M19.90 Active 06492 5006 Problem Major depression F32.9 Active 370 553934 Problem Essential hypertension I10 Active 66479098 Problem GERD (gastroesophageal reflux disease) K21.9 Active 870859727 Problem Insomnia G47.00 Active 165508559 Problem Anxiety F41.9 Active 11222066 Problem Major depressive disorder, recurrent episode, moderate F33.1 Active 707658544 Problem Hypothyroidism E03.9 Active 10341 008 Problem Borderline personality disorder F60.3 Active 14779217 Problem Migraine G43.909 Active 69456803 Problem Morbid (severe) obesity due to excess calories E66 .01 Active 377851924 Problem IZABEL on CPAP G47.33 Active 26380176 Problem Mixed incontinence urge and stress N39.46 Active 323875035 Problem Spinal stenosis M48.00 Active 7610 7001 Problem Open wound of right foot, initial encounter S91.30 1A Active [id number] Problem Body mass index (BMI) of 40.0-44.9 in adult Z68.41 Active 403790521 Problem Breast cancer C50.919 Active 592842 009 Problem Panic disorder F41.0 Active 36760 1005 Problem Other chronic pain G89.29 Active 8 2359408 Problem Type 2 diabetes mellitus E11.9 Activ e 00059023 Problem Diabetic polyneuropathy associated with type 2 d iabetes mellitus E11.42 Active 59155655 Problem Migraine with aura and without status migrainosu s, not intractable G43.109 Active 6881295 Problem Functional urinary incontinence R39.81 Active [id number] ALLERGIES No Information ENCOUNTERS Encounter Location Date Diagnosis [facility] [address] [address] Nov, [facility] [address] [facility] [id number] [address] [place] [address] Sep, [facility] [address] [facility] [id number] [address] [place] [address] Sep, [address] [address] Sep, [address] [address] Aug, [address] [address] Aug, [address] [address] Aug, Depression, major, recurrent, moderate 2 96.32 [place] [address] [facility] [id number] [address] [place] [address] Aug, Major depressive disorder, r ecurrent episode, moderate F33.1 ; Panic disorder F41.0 and Borderline personality disorder F60.[address] [address] Aug, Anxiety F41.9 ; Type 2 diabetes mellitus E11.9 ; Mixed incontinence urge and stress N39.46 ; Screening mammogram, encounter for Z12.31 and Morbid obesity E66.[address] [address] Aug, Type 2 diabetes mellitus E11.[address] [address] Aug, [address] [address] Aug, Scalp cyst L72.9 and Morbid obesity E66. [address] [address] Aug, [facility] [address] [facility] [id number] [address] [place] [address] Jul, Major depressive disorder, r ecurrent episode, moderate F33.1 ; Panic disorder F41.0 and Borderline personality disorder F60.3 [facility] [address] [place] [address] Jul, [facility] [address] [place] [address] Jul, [facility] [address] [address] Jul, [facility] [address] [address] Jul, [address] [address] Jul, [address] [address] Jul, Depression, major, recurrent, moderate 2 96.32 [facility] [address] [address] June, Type 2 diabetes mellitus E11.9 ; Morbid (severe) obesity due to excess calories E66.01 and Body mass index (BMI) of 40.0-44.9 in adult Z68.41 [facility] [address] [place] [address] June, [facility] [address] [address] June, [address] [address] June, Type 2 diabetes mellitus E11.[address] [address] June, Type 2 diabetes mellitus E11.9 and Morbi d obesity E66.01 [facility] [address] [address] June, [facility] [address] [address] June, [facility] [address] [address] June, [facility] [address] [address] June, Morbid obesity E66.01 [facility] [address] [address] May, [address] [address] May, [address] [address] May, [address] [address] May, Hypothyroidism E03.9 ; Type 2 diabetes m ellitus E11.9 and Morbid obesity E66.[address] [place] [address] May, Morbid obesity E66.01 [facility] [address] [id number] [address] [place] [address] May, Peripheral edema R60.9 [facility] [address] [id number] [address] [place] [address] May, Peripheral edema R60.9 ; Fadi ght gain R63.5 ; Shortness of breath R06.02 and Morbid obesity E66.01 [facility] [address] [place] [facility] [place] [place] [address] May, Pedal edema R60.0 and Morbid obesity E66 .[address] [address] May, [address] [address] May, [address] [address] May, [facility] [address] [facility] [id number] [address] [place] [address] Apr, Bilateral lower extremity ed maria del rosario R60.0 ; Morbid obesity E66.01 and Weight gain R63.[address] [address] Apr, [address] [address] Apr, [address] [address] Apr, Migraine with aura and without status mi grainosus, not intractable G43.[address] [address] Apr, [address] [address] Apr, [address] [address] Apr, [address] [address] Apr, [address] [address] Apr, [address] [address] Apr, Type 2 diabetes mellitus E11.9 ; Pain in right knee M25.561 ; Other chronic pain G89.29 ; Pain in right shoulder M25.511 ; Morbid obesity E66.01 and Diabetic polyneuropathy associated with type 2 diabetes mellitus E11.[address] [address] Apr, [facility] [address] [facility] [id number] [address] [place] [address] Apr, [facility] [address] [place] [facility] [place] [address] Mar, Open wound of right foot, initial encoun ter S91.301A and Morbid obesity E66.01 [facility] [address] [place] [facility] [place] [place] [address] Mar, Dysuria R30.0 and Painful urination R30. [address] [address] Mar, Depression, major, recurrent, moderate [address] [address] Mar, [address] [address] Mar, [facility] [address] [facility] [id number] [address] [place] [address] Feb, Dental examination Z01.20 [facility] [address] [facility] [id number] [address] [place] [address] Nov, [facility] [address] [place] [id number] [address] [place] [address] Nov, [facility] [address] [place] [id number] [address] [place] [address] 08 Mar, 2015 Major depressive disorder, r ecurrent episode, moderate F33.1 ; Panic disorder F41.0 and Borderline personality disorder F60.3 [facility] [address] [place] [id number] [address] [place] [address] Sep, Depression, major, recurrent , moderate 296.32 ; Agoraphobia with panic disorder 300.21 and Borderline personality disorder 301.83 [facility] [address] [place] [id number] [address] [place] [address] Aug, Depression, major, recurrent , moderate 296.32 ; Panic disorder without agoraphobia 300.01 and Borderline personality disorder 301.83 [facility] [address] [place] [id number] [address] [place] [address] 16 Jul, 2014 Depression, major, recurrent , moderate 296.32 ; Agoraphobia with panic disorder 300.21 and Posttraumatic stress disorder 309.81 [facility] [address] [place] [id number] [address] [place] [address] 30 May, 2014 [facility] [address] [place] [id number] [address] [place] [address] 14 May, 2014 [facility] [address] [place] [id number] [address] [place] [address] May, [facility] [address] [place] [id number] [address] [place] [address] 10 Apr, 2014 [facility] [address] [place] [id number] [address] [place] [address] Apr, [facility] [address] [place] [id number] [address] [place] [address] 05 Apr, 2014 [facility] [address] [id number] [address] [place] [address], [place] [address] Apr, [facility] [address] [id number] [address] [place] [address], [place] [address] Mar, 2014 [facility] [address] [id number] [address] [place] [address], [place] [address] Mar, 2014 [facility] [address] [id number] [address] [place] [address], [place] [address] Mar, [facility] [address] [id number] [address] [place] [address], [place] [address] Mar, [facility] [address] [id number] [address] [place] [address], [place] [address] Feb, [facility] [address] [id number] [address] [place] [address], [place] [address] Feb, [facility] [address] [id number] [address] [place] [address], [place] [address] Jan, [facility] [address] [id number] [address] [place] [address], [place] [address] Jan, [facility] [address] [id number] [address] [place] [address], [place] [address] Jan, [facility] [address] [id number] [address] [place] [address], [place] [address] Jan, [facility] [address] [id number] [address] [place] [id number] Dec, [facility] [address] [id number] [address] [place] [id number] Dec, [facility] [address] [id number] [address] [place] [address], [place] [address] Dec, [facility] [address] [id number] [address] [place] [address] Dec, [facility] [address] [id number] [address] [place] [address], [place] [address] Dec, [facility] [address] [id number] [address] [place] [address], [place] [address] Nov, [facility] [address] [id number] [address] [place] [address], [place] [address] Nov, [facility] [address] [id number] [address] [place] [address], [place] [address] Nov, [facility] [address] [id number] [address] [place] [address], [place] [address] Nov, [facility] [address] [id number] [address] [place] [address], [place] [address] Nov, [facility] [address] [id number] [address] [place] [address], [place] [address] Nov, [facility] [address] [id number] [address] [place] [address], [place] [address] Nov, [facility] [address] [id number] [address] [place] [address], [place] [address] Nov, [facility] [address] [id number] [address] [place] [address], [place] [address] Oct, [facility] [address] [id number] [address] [place] [address], [place] [address] Oct, [facility] [address] [id number] [address] [place] [address], [place] [address] Sep, [facility] [address] [id number] [address] [place] [address], [place] [address] Sep, [facility] [address] [id number] [address] [place] [address], [place] [address] Sep, [facility] [address] [id number] [address] [place] [address], [place] [address] Sep, [facility] [address] [id number] [address] [place] [address], [place] [address] Sep, [facility] [address] [id number] [address] [place] [address], [place] [address] Sep, [facility] [address] [id number] [address] [place] [address], [place] [address] Jul, [facility] [address] [id number] [address] [place] [address], [place] [address] Jul, [facility] [address] [id number] [address] [place] [address], [place] [address] June, [facility] [address] [id number] [address] [place] [address], [place] [address] June, [facility] [address] [id number] [address] [place] [address], [place] [address] June, [facility] [address] [id number] [address] [place] [address], [place] [address] June, [facility] [address] [id number] [address] [place] [address], [place] [address] May, [facility] [address] [id number] [address] [place] [address], [place] [address] May, [facility] [address] [id number] [address] [place] [address], [place] [address] May, [facility] [address] [id number] [address] [place] [address], [place] [address] May, [facility] [address] [id number] [address] [place] [address], [place] [address] Apr, [facility] [address] [id number] [address] [place] [address], [place] [address] Apr, [facility] [address] [id number] [address] [place] [address], [place] [address] Mar, [facility] [address] [id number] [address] [place] [address], [place] [address] Mar, [facility] [address] [id number] [address] [place] [address], [place] [address] 13 Feb, 2013 [facility] [address] [id number] [address] [place] [address], [place] [address] Feb, [facility] [address] [id number] [address] [place] [address], [place] [address] Feb, [facility] [address] [id number] [address] [place] [address], [place] [address] Feb, [facility] [address] [id number] [address] [place] [address], [place] [address] Dec, [facility] [address] [id number] [address] [place] [address], [place] [address] Dec, [facility] [address] [id number] [address] [place] [address], [place] [address] Dec, [facility] [address] [id number] [address] [place] [address], [place] [address] Dec, [facility] [address] [id number] [address] [place] [address], [place] [address] Nov, [facility] [address] [id number] [address] [place] [address], [place] [address] Nov, [facility] [address] [id number] [address] [place] [address], [place] [address] 16 Nov, 2012 [facility] [address] [id number] [address] [place] [address], [place] [address] 16 Nov, 2012 [facility] [address] [id number] [address] [place] [address], [place] [address] 23 Oct, 2012 [facility] [address] [id number] [address] [place] [address], [place] [address] 16 Oct, 2012 [facility] [address] [id number] [address] [place] [address], [place] [address] 10 Oct, 2012 [facility] [address] [id number] [address] [place] [address], [place] [address] Oct, [facility] [address] [id number] [address] [place] [address], [place] [address] Aug, [facility] [address] [id number] [address] [place] [address], [place] [address] Aug, [facility] [address] [id number] [address] [place] [address], [place] [address] Aug, [facility] [address] [id number] [address] [place] [address], [place] [address] Aug, [facility] [address] [id number] [address] [place] [address], [place] [address] Aug, [facility] [address] [id number] [address] [place] [address], [place] [address] Jul, [facility] [address] [id number] [address] [place] [address], [place] [address] June, [facility] [address] [id number] [address] [place] [address], [place] [address] May, [facility] [address] [id number] [address] [place] [address], [place] [address] Apr, [facility] [address] [id number] [address] [place] [address], [place] [address] Mar, [facility] [address] [id number] [address] [place] [address], [place] [address] Mar, [facility] [address] [id number] [address] [place] [address], [place] [address] Jan, [facility] [address] [id number] [address] [place] [address], [place] [address] Jan, [facility] [address] [id number] [address] [place] [address], [place] [address] Jan, [facility] [address] [id number] [address] [place] [address], [place] [address] Jan, [facility] [address] [id number] [address] [place] [address] [place] [address] 13 Jan, 2012 [facility] [address] [id number] [address] [place] [address], [place] [address] 13 Jan, 2012 [facility] [address] [id number] [address] [place] [address], [place] [address] Jan, [facility] [address] [id number] [address] [place] [address], [place] [address] Jan, [facility] [address] [id number] [address] [place] [address], [place] [address] Jan, [facility] [address] [id number] [address] [place] [address], [place] [address] Jan, [facility] [address] [id number] [address] [place] [address], [place] [address] Dec, [facility] [address] [id number] [address] [place] [address], [place] [address] Dec, [facility] [address] [id number] [address] [place] [address], [place] [address] Dec, [facility] [address] [id number] [address] [place] [address], [place] [address] Dec, [facility] [address] [id number] [address] [place] [address], [place] [address] Dec, [facility] [address] [id number] [address] [place] [address], [place] [address] Dec, [facility] [address] [id number] [address] [place] [address], [place] [address] Nov, [facility] [address] [id number] [address] [place] [address], [place] [address] Nov, [facility] [address] [id number] [address] [place] [address], [place] [address] 24 Oct, 2011 [facility] [address] [id number] [address] [place] [address], [place] [address] 24 Oct, 2011 [facility] [address] [id number] [address] [place] [address], [place] [address] Oct, [facility] [address] [id number] [address] [place] [address], [place] [address] Oct, [facility] [address] [id number] [address] [place] [address], [place] [address] Sep, [facility] [address] [id number] [address] [place] [address], [place] [address] Sep, [facility] [address] [id number] [address] [place] [address], [place] [address] Aug, [facility] [address] [id number] [address] [place] [address], [place] [address] Aug, [facility] [address] [id number] [address] [place] [address], [place] [address] Aug, [facility] [address] [id number] [address] [place] [address], [place] [address] Aug, [facility] [address] [id number] [address] [place] [address], [place] [address] Aug, [facility] [address] [id number] [address] [place] [address], [place] [address] Aug, [facility] [address] [id number] [address] [place] [address], [place] [address] Jul, [facility] [address] [id number] [address] [place] [address], [place] [address] Jul, [facility] [address] [id number] [address] [place] [address], [place] [address] June, [facility] [address] [id number] [address] [place] [address], [place] [address] June, [facility] [address] [id number] [address] [place] [address], [place] [address] May, [facility] [address] [id number] [address] [place] [address], [place] [address] May, [facility] [address] [id number] [address] [place] [address], [place] [address] May, [facility] [address] [id number] [address] [place] [address], [place] [address] May, [facility] [address] [id number] [address] [place] [address], [place] [address] Apr, [facility] [address] [id number] [address] [place] [address], [place] [address] Apr, [facility] [address] [id number] [address] [place] [address], [place] [address] Apr, [facility] [address] [id number] [address] [place] [address], [place] [address] Apr, [facility] [address] [id number] [address] [place] [address], [place] [address] Mar, [facility] [address] [id number] [address] [place] [address], [place] [address] Mar, [facility] [address] [id number] [address] [place] [address], [place] [address] Feb, [facility] [address] [id number] [address] [place] [address], [place] [address] Feb, [facility] [address] [id number] [address] [place] [address], [place] [address] Feb, [facility] [address] [id number] [address] [place] [address], [place] [address] Feb, [facility] [address] [id number] [address] [place] [address], [place] [address] Feb, [facility] [address] [id number] [address] [place] [address], [place] [address] Jan, [facility] [address] [id number] [address] [place] [address], [place] [address] Dec, [facility] [address] [id number] [address] [place] [address] Dec, [facility] [address] [id number] [address] [place] [id number] Dec, [facility] [address] [id number] [address] [place] [id number] Nov, [facility] [address] [id number] [place] [id number] Nov, [facility] [address] [id number] [address] [place] [phone] Aug, [facility] [address] [id number] [address] [place] [phone] Jan, [facility] [address] [id number] [address] [place] [phone] Dec, [facility] [address] [id number] [address] [place] [phone] Nov, [facility] [address] [id number] [address] [place] [phone] Jan, [facility] [address] [id number] [address] [place] [phone] Jan, IMMUNIZATIONS No Known Immunizations SOCIAL HISTORY [...] 3 Hospitalization History [facility] for back surge ry Hospitalization History lt breast surgery(cancer)
--- OUTSIDE RECORDS SUMMARY | 2019-05-02 19:53 | XMS REPORT | Continuity of Care Document ---
Author Organization Unknown Address Unknown Phone Unavailable Allergies Active Description Code Type Severity Reaction Onset Reported/Identified Relationship to Patient Clinical Status Yes Percocet Drug Allergy N/A N/A 08/28/2010 Yes Percocet Drug Allergy 08/28/2010 Yes sulfa drug Drug Allergy 10/27/2010 Yes Darvon Drug Allergy N/A N/A 05/07/2011 Yes Darvon Drug Allergy 05/07/2011 Yes azithromycin [id number] Drug Allergy Moderate Nausea 07/19/2018 Yes oxycodone [id number] Drug Allergy Moderate Rash 07/19/2018 Yes prednisone [id number] Drug Allerg y Moderate Rash 07/19/2018 Yes propoxyphene [id number] Drug Allergy Moderate Rash 07/19/2018 Yes Sulfa (Sulfonamide Antibiotics) [id number] Drug Allergy Moderate Rash 2018 Yes vilazodone [id number] Drug Allerg y Moderate Diarrhea 07/19/2018 Yes aspartame [id number] Drug Allergy Unknown N/A 07/19/2018 Yes No Known Drug Allergies [id number] Drug Allergy Unknown N/A 07/19/2018 Medications There is no data. Problems Date Dx Coded Attending Type Code Diagnosis Diagnosed By 10/11/2008 PRASANNA PARSONS DO 296 .32 MO DEPRESSIVE RECURRENT MODERATE 10/11/2008 PRASANNA PARSONS DO 300 .01 AN PANIC DIS W/O AGORA 10/11/2008 PRASANNA PARSONS DO 296 .32 MO DEPRESSIVE RECURRENT MODERATE 10/11/2008 PRASANNA PARSONS DO 300 .01 AN PANIC DIS W/O AGORA 10/11/2008 PRASANNA PARSONS DO 296 .32 MO DEPRESSIVE RECURRENT MODERATE 10/11/2008 PRASANNA PARSONS DO 300 .01 AN PANIC DIS W/O AGORA 10/11/2008 296.32 MO DEPRESSIVE RECURRENT MODERATE 10/11/2008 300.01 AN PANIC DIS W/O AGORA 10/11/2008 296.32 MO DEPRESSIVE RECURRENT MODERATE 10/11/2008 300.01 AN PANIC DIS W/O AGORA 10/11/2008 296.32 MO DEPRESSIVE RECURRENT MODERATE 10/11/2008 300.01 AN PANIC DIS W/O AGORA 10/11/2008 PRASANNA PARSONS DO F 296 .32 MO DEPRESSIVE RECURRENT MODERATE 10/11/2008 PRASANNA PARSONS DO F 300 .01 AN PANIC DIS W/O AGORA 10/11/2008 [facility] PHD, LAMBERTO A 296.32 MO DEPRESSIVE RECURRENT MODERATE 10/11/2008 [facility] LAM[facility]ERTO A 300.01 AN PANIC DIS W/O AGORA 10/11/2008 ITALO HEREDIA, JENIFER CANALES 296.32 MO DEPRESSIVE RECURRENT MODERATE 10/11/2008 PUCKETT MARINE PLUMBER, JENIFER CANALES 300.01 AN PANIC DIS W/O AGORA 10/11/2008 [facility], LAMBERTO A 296.32 MO DEPRESSIVE RECURRENT MODERATE 10/11/2008 [facility] A 300.01 AN PANIC DIS W/O AGORA 10/11/2008 [facility], LAMBERTO A 296.32 MO DEPRESSIVE RECURRENT MODERATE 10/11/2008 [facility], LAM[facility] A 300.01 AN PANIC DIS W/O AGORA 10/11/2008 [facility], LAMBERTO A 296.32 MO DEPRESSIVE RECURRENT MODERATE 10/11/2008 [facility] PHD, LAMBERTO A 300.01 AN PANIC DIS W/O AGORA 10/11/2008 [facility], LAM[facility]O A 296.32 MO DEPRESSIVE RECURRENT MODERATE 10/11/2008 [facility] PHD, LAMBERTO A 300.01 AN PANIC DIS W/O AGORA 10/11/2008 [facility] PHD, LAMBERTO A 296.32 MO DEPRESSIVE RECURRENT MODERATE 10/11/2008 [facility] PHD, LAMBERTO A 300.01 AN PANIC DIS W/O AGORA 10/11/2008 [facility], LAMBERTO A 296.32 MO DEPRESSIVE RECURRENT MODERATE 10/11/2008 [facility] PHD, LAMBERTO A 300.01 AN PANIC DIS W/O AGORA 10/11/2008 [facility], LAM[facility]ERTO A 296.32 MO DEPRESSIVE RECURRENT MODERATE 10/11/2008 [facility], LAMBERTO A 300.01 AN PANIC DIS W/O AGORA 10/11/2008 BOGDAN MARTINEZ DDS 296.32 MO DEPRESSIVE RECURRENT MODERATE 10/11/2008 WHITE DDS, BOGDAN J 300.01 AN PANIC DIS W/O AGORA 10/11/2008 RICHA DUFF APRN 296.32 MO DEPRESSIVE RECURRENT MODERATE 10/11/2008 RICHA DUFF APRN 300.01 AN PANIC DIS W/O AGORA 10/11/2008 [facility] , LAMBERTO Pak 296.32 MO DEPRESSIVE RECURRENT MODERATE 10/11/2008 [facility] LAMBERTO ARMANDO 300.01 AN PANIC DIS W/O AGORA 10/11/2008 RICHA DUFF APRN 296.32 MO DEPRESSIVE RECURRENT MODERATE 10/11/2008 RICHA DUFF APRN 300.01 AN PANIC DIS W/O AGORA 11/17/2008 PRASANNA PARSONS DO 301 .83 PD BORDERLINE 11/17/2008 PRASANNA PARSONS DO F 301 .83 PD BORDERLINE 11/17/2008 PRASANNA PARSONS DO F 301 .83 PD BORDERLINE 11/17/2008 301.83 PD BORDERLINE 11/17/2008 301.83 PD BORDERLINE 11/17/2008 301.83 PD BORDERLINE 11/17/2008 PRASANNA PARSONS DO 301 .83 PD BORDERLINE 11/17/2008 [facility] , LAMBERTO A 301.83 PD BORDERLINE 11/17/2008 JENIFER PUCKETT APRN 301.83 PD BORDERLINE 11/17/2008 [facility], LAMBERTO A 301.83 PD BORDERLINE 11/17/2008 [facility], L[facility] A 301.83 PD BORDERLINE 11/17/2008 [facility]D, LAMBERTO A 301.83 PD BORDERLINE 11/17/2008 [facility] PHD, LAMBERTO A 301.83 PD BORDERLINE 11/17/2008 [facility], LAM[facility]O A 301.83 PD BORDERLINE 11/17/2008 [facility] PHD, LAMBERTO A 301.83 PD BORDERLINE 11/17/2008 [facility], LAMBERTO A 301.83 PD BORDERLINE 11/17/2008 WHITE DDS, BOGDAN J 301.83 PD BORDERLINE 11/17/2008 RICHA DUFF APRN 301.83 PD BORDERLINE 11/17/2008 E[facility] ARMANDO, LAMBERTO A 301.83 PD BORDERLINE 11/17/2008 RICHA DUFF APRN 301.83 PD BORDERLINE 11/22/2008 PRASANNA PARSONS DO F 296 .90 MO MOOD DIS NOS 11/22/2008 PRASANNA PARSONS DO 300 .00 AN ANXIETY UNSPEC 11/22/2008 PRASANNA PARSONS DO F 301 .9 PD PERS DIS NOS 11/22/2008 PRASANNA PARSONS DO F 304 .00 SA OPIOID DEPENDENCE 11/22/2008 PRASANNA PARSONS DO 307 .47 SI DYSSOMNIA NOS 11/22/2008 PRASANNA PARSONS DO F 296 .90 MO MOOD DIS NOS 11/22/2008 GAVINROSALBA DO PRASANNA F 300 .00 AN ANXIETY UNSPEC 11/22/2008 RAFIA PARSONS DOEN F 301 .9 PD PERS DIS NOS 11/22/2008 RAFIA PARSONS DOEN F 304 .00 SA OPIOID DEPENDENCE 11/22/2008 ISSA FAIRBANKSRAFIAEN F 307 .47 SI DYSSOMNIA NOS 11/22/2008 ISSA PRASANNA F 296 .90 MO MOOD DIS NOS 11/22/2008 ISSA PRASANNA 300 .00 AN ANXIETY UNSPEC 11/22/2008 ISSA FAIRBANKS PRASANNA Paulina 301 .9 PD PERS DIS NOS 11/22/2008 GAVINROSALBA DO PRASANNA F 304 .00 SA OPIOID DEPENDENCE 11/22/2008 ISSA RAFIAEN Paulina 307 .47 SI DYSSOMNIA NOS 11/22/2008 296.90 MO MOOD DIS NOS 11/22/2008 300.00 AN ANXIETY UNSPEC 11/22/2008 301.9 PD P ERS DIS NOS 11/22/2008 304.00 SA OPIOID DEPENDENCE 11/22/2008 307.47 SI DYSSOMNIA NOS 11/22/2008 296.90 MO MOOD DIS NOS 11/22/2008 300.00 AN ANXIETY UNSPEC 11/22/2008 301.9 PD P ERS DIS NOS 11/22/2008 304.00 SA OPIOID DEPENDENCE 11/22/2008 307.47 SI DYSSOMNIA NOS 11/22/2008 296.90 MO MOOD DIS NOS 11/22/2008 300.00 AN ANXIETY UNSPEC 11/22/2008 301.9 PD P ERS DIS NOS 11/22/2008 304.00 SA OPIOID DEPENDENCE 11/22/2008 307.47 SI DYSSOMNIA NOS 11/22/2008 ISSA FAIRBANKS PRASANNA F 296 .90 MO MOOD DIS NOS 11/22/2008 ISSA FAIRBANKS PRASANNA F 300 .00 AN ANXIETY UNSPEC 11/22/2008 ISSA FAIRBANKS PRASANNA F 301 .9 PD PERS DIS NOS 11/22/2008 ISSA DO, PRASANNA F 304 .00 SA OPIOID DEPENDENCE 11/22/2008 ISSA DOPRASANNA F 307 .47 SI DYSSOMNIA NOS 11/22/2008 [facility] PHD, LAMBERTO A 296.90 MO MOOD DIS NOS 11/22/2008 [facility] PHD, LAMBERTO A 300.00 AN ANXIETY UNSPEC 11/22/2008 [facility], LAMBERTO A 301.9 PD PERS DIS NOS 11/22/2008 [facility], LAMBERTO A 304.00 SA OPIOID DEPENDENCE 11/22/2008 [facility], LAMBERTO A 307.47 SI DYSSOMNIA NOS 11/22/2008 PUCKETT MARINE PLUMBER, JENIFER CANALES 296.90 MO MOOD DIS NOS 11/22/2008 PUCKETT MARINE PLUMBER, JENIFER CANALES 300.00 AN ANXIETY UNSPEC 11/22/2008 PUCKETT MARINE PLUMBER, JENIFER CANALES 301.9 PD PERS DIS NOS 11/22/2008 PUCKETT MARINE PLUMBER, JENIFER CANALES 304.00 SA OPIOID DEPENDENCE 11/22/2008 PUCKETT MARINE PLUMBER, JENIFER CANALES 307.47 SI DYSSOMNIA NOS 11/22/2008 BOESILVIA ARMANDO, LAMBERTO A 296.90 MO MOOD DIS NOS 11/22/2008 [facility] PHD, LAMBERTO A 300.00 AN ANXIETY UNSPEC 11/22/2008 BOESILVIA PHD, LAMBERTO A 301.9 PD PERS DIS NOS 11/22/2008 BOESILVIA PHD, LAMBERTO A 304.00 SA OPIOID DEPENDENCE 11/22/2008 E[facility] ARMANDO, LAMBERTO A 307.47 SI DYSSOMNIA NOS 11/22/2008 BOESILVIA PHD, LAMBERTO A 296.90 MO MOOD DIS NOS 11/22/2008 BOELIAMOUT PHD, LAMBERTO A 300.00 AN ANXIETY UNSPEC 11/22/2008 BOESILVIA PHD, LAMBERTO A 301.9 PD PERS DIS NOS 11/22/2008 [facility] PHD, LAMBERTO A 304.00 SA OPIOID DEPENDENCE 11/22/2008 [facility] PHD, LAMBERTO A 307.47 SI DYSSOMNIA NOS 11/22/2008 [facility] PHD, LAMBERTO A 296.90 MO MOOD DIS NOS 11/22/2008 [facility] PHD, LAMBERTO A 300.00 AN ANXIETY UNSPEC 11/22/2008 E[facility] ARMANDO, LAMBERTO A 301.9 PD PERS DIS NOS 11/22/2008 [facility] PHD, LAMBERTO A 304.00 SA OPIOID DEPENDENCE 11/22/2008 [facility] PHD, LAMBERTO A 307.47 SI DYSSOMNIA NOS 11/22/2008 [facility] PHD, LAMBERTO A 296.90 MO MOOD DIS NOS 11/22/2008 [facility] PHD, LAMBERTO A 300.00 AN ANXIETY UNSPEC 11/22/2008 [facility] PHD, LAMBERTO A 301.9 PD PERS DIS NOS 11/22/2008 [facility] PHD, LAMBERTO A 304.00 SA OPIOID DEPENDENCE 11/22/2008 [facility] PHD, LAMBERTO A 307.47 SI DYSSOMNIA NOS 11/22/2008 [facility] PHD, LAMBERTO A 296.90 MO MOOD DIS NOS 11/22/2008 [facility] PHD, LAMBERTO A 300.00 AN ANXIETY UNSPEC 11/22/2008 [facility] PHD, LAMBERTO A 301.9 PD PERS DIS NOS 11/22/2008 [facility] PHD, LAMBERTO A 304.00 SA OPIOID DEPENDENCE 11/22/2008 [facility] PHD, LAMBERTO A 307.47 SI DYSSOMNIA NOS 11/22/2008 [facility] PHD, LAMBERTO A 296.90 MO MOOD DIS NOS 11/22/2008 [facility] PHD, LAMBERTO A 300.00 AN ANXIETY UNSPEC 11/22/2008 [facility] PHD, LAMBERTO A 301.9 PD PERS DIS NOS 11/22/2008 [facility] PHD, LAMBERTO A 304.00 SA OPIOID DEPENDENCE 11/22/2008 [facility] PHD, LAMBERTO A 307.47 SI DYSSOMNIA NOS 11/22/2008 [facility] PHD, LAMBERTO A 296.90 MO MOOD DIS NOS 11/22/2008 [facility] PHD, LAMBERTO A 300.00 AN ANXIETY UNSPEC 11/22/2008 [facility] PHD, LAMBERTO A 301.9 PD PERS DIS NOS 11/22/2008 [facility] PHD, LAMBERTO A 304.00 SA OPIOID DEPENDENCE 11/22/2008 [facility] PHD, LAMBERTO A 307.47 SI DYSSOMNIA NOS 11/22/2008 WHITE DDS, BOGDAN J 296.90 MO MOOD DIS NOS 11/22/2008 WHITE DDS, BOGDAN J 300.00 AN ANXIETY UNSPEC 11/22/2008 WHITE DDS, BOGDAN J 30 1.9 PD PERS DIS NOS 11/22/2008 WHITE DDS, BOGDAN J 304.00 SA OPIOID DEPENDENCE 11/22/2008 WHITE DDS, BOGDAN J 307.47 SI DYSSOMNIA NOS 11/22/2008 SHERIN MARINE PLUMBER, RICHA J 296.90 MO MOOD DIS NOS 11/22/2008 SHERIN MARINE PLUMBER, RICHA J 300.00 AN ANXIETY UNSPEC 11/22/2008 SHERIN MARINE PLUMBER, RICHA J 301.9 PD PERS DIS NOS 11/22/2008 SHERIN MARINE PLUMBER, RICHA J 304.00 SA OPIOID DEPENDENCE 11/22/2008 SHERIN MARINE PLUMBER, RICHA J 307.47 SI DYSSOMNIA NOS 11/22/2008 [facility] PHD, LAMBERTO A 296.90 MO MOOD DIS NOS 11/22/2008 [facility] PHD, LAMBERTO A 300.00 AN ANXIETY UNSPEC 11/22/2008 [facility] PHD, LAMBERTO A 301.9 PD PERS DIS NOS 11/22/2008 [facility] PHD, LAMBERTO A 304.00 SA OPIOID DEPENDENCE 11/22/2008 E[facility] ARMANDO, LAMBERTO A 307.47 SI DYSSOMNIA NOS 11/22/2008 SHERIN MALONEN, RICHA J 296.90 MO MOOD DIS NOS 11/22/2008 SHERIN MALONEN, RICHA J 300.00 AN ANXIETY UNSPEC 11/22/2008 SHERIN MALONEN, RICHA J 301.9 PD PERS DIS NOS 11/22/2008 SHERIN MARINE PLUMBER, RICHA J 304.00 SA OPIOID DEPENDENCE 11/22/2008 SHERIN MARINE PLUMBER, RICHA J 307.47 SI DYSSOMNIA NOS 03/07/2009 PRASANNA PARSONS DO 296 .40 MO BIPOLAR MANIC UNSPECIFIED 03/07/2009 PRASANNA PARSONS DO V58 .69 MEDICATION HIGH RISK 03/07/2009 PRASANNA PARSONS DO 296 .40 MO BIPOLAR MANIC UNSPECIFIED 03/07/2009 PRASANNA PARSONS DO V58 .69 MEDICATION HIGH RISK 03/07/2009 PRASANNA PARSONS DO 296 .40 MO BIPOLAR MANIC UNSPECIFIED 03/07/2009 PRASANNA PARSONS DO V58 .69 MEDICATION HIGH RISK 03/07/2009 296.40 MO BIPOLAR MANIC UNSPECIFIED 03/07/2009 V58.69 MED ICATION HIGH RISK 03/07/2009 296.40 MO BIPOLAR MANIC UNSPECIFIED 03/07/2009 V58.69 MED ICATION HIGH RISK 03/07/2009 296.40 MO BIPOLAR MANIC UNSPECIFIED 03/07/2009 V58.69 MED ICATION HIGH RISK 03/07/2009 PRASANNA PARSONS DO F 296 .40 MO BIPOLAR MANIC UNSPECIFIED 03/07/2009 PRASANNA PARSONS DO F V58 .69 MEDICATION HIGH RISK 03/07/2009 EASTON ARMANDO, LAMBERTO A 296.40 MO BIPOLAR MANIC UNSPECIFIED 03/07/2009 [facility] PHD, LAMBERTO A V58.69 MEDICATION HIGH RISK 03/07/2009 ITALO HEREDIA, JENIFER CANALES 296.40 MO BIPOLAR MANIC UNSPECIFIED 03/07/2009 ITALO HEREDIA, JENIFER CANALES V58.69 MEDICATION HIGH RISK 03/07/2009 [facility] PHD, LAMBERTO A 296.40 MO BIPOLAR MANIC UNSPECIFIED 03/07/2009 [facility] PHD, LAMBERTO A V58.69 MEDICATION HIGH RISK 03/07/2009 [facility] PHD, LAMBERTO A 296.40 MO BIPOLAR MANIC UNSPECIFIED 03/07/2009 [facility] PHD, LAMBERTO A V58.69 MEDICATION HIGH RISK 03/07/2009 [facility] PHD, LAMBERTO A 296.40 MO BIPOLAR MANIC UNSPECIFIED 03/07/2009 [facility] PHD, LAMBERTO A V58.69 MEDICATION HIGH RISK 03/07/2009 E[facility] PHD, LAMBERTO A 296.40 MO BIPOLAR MANIC UNSPECIFIED 03/07/2009 [facility] PHD, LAMBERTO A V58.69 MEDICATION HIGH RISK 03/07/2009 E[facility]ON PHD, LAMBERTO A 296.40 MO BIPOLAR MANIC UNSPECIFIED 03/07/2009 [facility] PHD, LAMBERTO A V58.69 MEDICATION HIGH RISK 03/07/2009 [facility] PHD, LAMBERTO A 296.40 MO BIPOLAR MANIC UNSPECIFIED 03/07/2009 [facility] PHD, LAMBERTO A V58.69 MEDICATION HIGH RISK 03/07/2009 [facility] PHD, LAMBERTO A 296.40 MO BIPOLAR MANIC UNSPECIFIED 03/07/2009 [facility] PHD, LAMBERTO A V58.69 MEDICATION HIGH RISK 03/07/2009 WHITE DDS, BOGDAN J 296.40 MO BIPOLAR MANIC UNSPECIFIED 03/07/2009 WHITE DDS, BOGDAN J V58.69 MEDICATION HIGH RISK 03/07/2009 RICHA DUFF APRN J 296.40 MO BIPOLAR MANIC UNSPECIFIED 03/07/2009 RICHA DUFF APRN J V58.69 MEDICATION HIGH RISK 03/07/2009 EASTON ARMANDO, LAMBERTO Pak 296.40 MO BIPOLAR MANIC UNSPECIFIED 03/07/2009 EASTON ARMANDO, LAMBERTO Pak V58.69 MEDICATION HIGH RISK 03/07/2009 RICHA DUFF APRN J 296.40 MO BIPOLAR MANIC UNSPECIFIED 03/07/2009 RICHA DUFF APRN J V58.69 MEDICATION HIGH RISK 05/30/2009 PRASANNA PARSONS DO F 296 .60 MO BIPOLAR I MIXED UNSPECIFIED 05/30/2009 PRASANNA PARSONS DO F 296 .60 MO BIPOLAR I MIXED UNSPECIFIED 05/30/2009 PRASANNA PARSONS DO F 296 .60 MO BIPOLAR I MIXED UNSPECIFIED 05/30/2009 296.60 MO BIPOLAR I MIXED UNSPECIFIED 05/30/2009 296.60 MO BIPOLAR I MIXED UNSPECIFIED 05/30/2009 296.60 MO BIPOLAR I MIXED UNSPECIFIED 05/30/2009 PRASANNA PARSONS DO F 296 .60 MO BIPOLAR I MIXED UNSPECIFIED 05/30/2009 EASTON ARMANDO, LAMBERTO A 296.60 MO BIPOLAR I MIXED UNSPECIFIED 05/30/2009 JENIFER PUCKETT APRN 296.60 MO BIPOLAR I MIXED UNSPECIFIED 05/30/2009 [facility] PHD, LAMBERTO A 296.60 MO BIPOLAR I MIXED UNSPECIFIED 05/30/2009 [facility] PHD, LAMBERTO A 296.60 MO BIPOLAR I MIXED UNSPECIFIED 05/30/2009 [facility] PHD, LAMBERTO A 296.60 MO BIPOLAR I MIXED UNSPECIFIED 05/30/2009 [facility] PHD, LAMBERTO A 296.60 MO BIPOLAR I MIXED UNSPECIFIED 05/30/2009 [facility] PHD, LAMBERTO A 296.60 MO BIPOLAR I MIXED UNSPECIFIED 05/30/2009 [facility] PHD, LAMBERTO A 296.60 MO BIPOLAR I MIXED UNSPECIFIED 05/30/2009 [facility] PHD, LAMBERTO A 296.60 MO BIPOLAR I MIXED UNSPECIFIED 05/30/2009 WHITE DDS, BOGDAN J 296.60 MO BIPOLAR I MIXED UNSPECIFIED 05/30/2009 RICHA DUFF APRN J 296.60 MO BIPOLAR I MIXED UNSPECIFIED 05/30/2009 EASTON ARMANDO, LAMBERTO A 296.60 MO BIPOLAR I MIXED UNSPECIFIED 05/30/2009 RICHA DUFF APRN 296.60 MO BIPOLAR I MIXED UNSPECIFIED 07/01/2009 PRASANNA PARSONS DO 296 .12 MANIC AFFECTIVE DISORDER, RECURRENT EPISODE, MODERATE 07/01/2009 PRASANNA PARSONS DO F 296 .12 MANIC AFFECTIVE DISORDER, RECURRENT EPISODE, MODERATE 07/01/2009 PRASANNA PARSONS DO F 296 .12 MANIC AFFECTIVE DISORDER, RECURRENT EPISODE, MODERATE 07/01/2009 296.12 MAN IC AFFECTIVE DISORDER, RECURRENT EPISODE, MODERATE 07/01/2009 296.12 MAN IC AFFECTIVE DISORDER, RECURRENT EPISODE, MODERATE 07/01/2009 296.12 MAN IC AFFECTIVE DISORDER, RECURRENT EPISODE, MODERATE 07/01/2009 PRASANNA PARSONS DO F 296 .12 MANIC AFFECTIVE DISORDER, RECURRENT EPISODE, MODERATE 07/01/2009 EASTON ARMANDO, LAMBERTO A 296.12 MANIC AFFECTIVE DISORDER, RECURRENT EPISODE, MODERATE 07/01/2009 JENIFER PUCKETT APRN 296.12 MANIC AFFECTIVE DISORDER, RECURRENT EPISODE, MODERATE 07/01/2009 BOESILVIA PHD, LAMBERTO A 296.12 MANIC AFFECTIVE DISORDER, RECURRENT EPISODE, MODERATE 07/01/2009 BOELIAMOUT PHD, LAMBERTO A 296.12 MANIC AFFECTIVE DISORDER, RECURRENT EPISODE, MODERATE 07/01/2009 BOELIAMOUT PHD, LAMBERTO A 296.12 MANIC AFFECTIVE DISORDER, RECURRENT EPISODE, MODERATE 07/01/2009 BOESILVIA PHD, LAMBERTO A 296.12 MANIC AFFECTIVE DISORDER, RECURRENT EPISODE, MODERATE 07/01/2009 BOESILVIA PHD, LAMBERTO A 296.12 MANIC AFFECTIVE DISORDER, RECURRENT EPISODE, MODERATE 07/01/2009 BOELIAMOUT PHD, LAMBERTO A 296.12 MANIC AFFECTIVE DISORDER, RECURRENT EPISODE, MODERATE 07/01/2009 BOELIAMOUT PHD, LAMBERTO A 296.12 MANIC AFFECTIVE DISORDER, RECURRENT EPISODE, MODERATE 07/01/2009 MICHELLE LANDISSBOGDAN 296.12 MANIC AFFECTIVE DISORDER, RECURRENT EPISODE, MODERATE 07/01/2009 RICHA DUFF APRN 296.12 MANIC AFFECTIVE DISORDER, RECURRENT EPISODE, MODERATE 07/01/2009 EASTON ARMANDO, LAMBERTO A 296.12 MANIC AFFECTIVE DISORDER, RECURRENT EPISODE, MODERATE 07/01/2009 SHERIN HEREDIA RICHA J 296.12 MANIC AFFECTIVE DISORDER, RECURRENT EPISODE, MODERATE 09/13/2010 Ot 233.0 09/13/2010 Ot 244.9 09/13/2010 Ot 250.00 09/13/2010 Ot 272.0 09/13/2010 Ot 300.4 09/13/2010 Ot 327.23 09/13/2010 Ot 401.9 09/13/2010 Ot 530.81 09/13/2010 Ot 715.90 09/13/2010 Ot V58.0 09/13/2010 Ot V58.69 12/27/2010 PRASANNA PARSONS DO 296 .00 BIPOLAR I DISORDER SINGLE MANIC EPISODE UNSPECIFIED 12/27/2010 PRASANNA PARSONS DO 296 .00 BIPOLAR I DISORDER SINGLE MANIC EPISODE UNSPECIFIED 12/27/2010 PRASANNA PARSONS DO 296 .00 BIPOLAR I DISORDER SINGLE MANIC EPISODE UNSPECIFIED 12/27/2010 296.00 BIP OLAR I DISORDER SINGLE MANIC EPISODE UNSPECIFIED 12/27/2010 296.00 BIP OLAR I DISORDER SINGLE MANIC EPISODE UNSPECIFIED 12/27/2010 296.00 BIP OLAR I DISORDER SINGLE MANIC EPISODE UNSPECIFIED 12/27/2010 PRASANNA PARSONS DO 296 .00 BIPOLAR I DISORDER SINGLE MANIC EPISODE UNSPECIFIED 12/27/2010 LAMBERTO MCCORMACK PHD 296.00 BIPOLAR I DISORDER SINGLE MANIC EPISODE UNSPECIFIED 12/27/2010 ITALO HEREDIA JENIFER CANALES 296.00 BIPOLAR I DISORDER SINGLE MANIC EPISODE UNSPECIFIED 12/27/2010 LAMBERTO MCCORMACK PHD 296.00 BIPOLAR I DISORDER SINGLE MANIC EPISODE UNSPECIFIED 12/27/2010 LAMBERTO MCCORMACK PHD A 296.00 BIPOLAR I DISORDER SINGLE MANIC EPISODE UNSPECIFIED 12/27/2010 EASTON ARMANDO, LAMBERTO A 296.00 BIPOLAR I DISORDER SINGLE MANIC EPISODE UNSPECIFIED 12/27/2010 LAMBERTO MCCORMACK PHD 296.00 BIPOLAR I DISORDER SINGLE MANIC EPISODE UNSPECIFIED 12/27/2010 LAMBERTO MCCORMACK PHD A 296.00 BIPOLAR I DISORDER SINGLE MANIC EPISODE UNSPECIFIED 12/27/2010 EASTON ARMANDO, LAMBERTO A 296.00 BIPOLAR I DISORDER SINGLE MANIC EPISODE UNSPECIFIED 12/27/2010 LAMBERTO MCCORMACK PHD 296.00 BIPOLAR I DISORDER SINGLE MANIC EPISODE UNSPECIFIED 12/27/2010 WHITE DDS, BOGDAN J 296.00 BIPOLAR I DISORDER SINGLE MANIC EPISODE UNSPECIFIED 12/27/2010 RICHA DUFF APRN 296.00 BIPOLAR I DISORDER SINGLE MANIC EPISODE UNSPECIFIED 12/27/2010 LAMBERTO MCCORMACK PHD 296.00 BIPOLAR I DISORDER SINGLE MANIC EPISODE UNSPECIFIED 12/27/2010 RICHA DUFF APRN 296.00 BIPOLAR I DISORDER SINGLE MANIC EPISODE UNSPECIFIED 01/01/2011 Ot 233.0 01/01/2011 Ot 244.9 01/01/2011 Ot 250.00 01/01/2011 Ot 272.0 01/01/2011 Ot 300.4 01/01/2011 Ot 327.23 01/01/2011 Ot 401.9 01/01/2011 Ot 530.81 01/01/2011 Ot 715.90 01/01/2011 Ot V58.69 02/07/2012 PRASANNA PARSONS DO 304 .10 SEDATIVE DEPENDENCE 02/07/2012 304.10 SED ATIVE DEPENDENCE 02/07/2012 304.10 SED ATIVE DEPENDENCE 02/07/2012 304.10 SED ATIVE DEPENDENCE 02/07/2012 PRASANNA PARSONS DO 304 .10 SEDATIVE DEPENDENCE 02/07/2012 LAMBERTO MCCORMACK PHD 304.10 SEDATIVE DEPENDENCE 02/07/2012 JENIFER PUCKETT APRN 304.10 SEDATIVE DEPENDENCE 02/07/2012 LAMBERTO MCCORMACK PHD 304.10 SEDATIVE DEPENDENCE 02/07/2012 LAMBERTO MCCORMACK PHD 304.10 SEDATIVE DEPENDENCE 02/07/2012 LAMBERTO MCCORMACK PHD 304.10 SEDATIVE DEPENDENCE 02/07/2012 LAMBERTO MCCORMACK PHD 304.10 SEDATIVE DEPENDENCE 02/07/2012 LAMBERTO MCCORMACK PHD 304.10 SEDATIVE DEPENDENCE 02/07/2012 LAMBERTO MCCORMACK PHD 304.10 SEDATIVE DEPENDENCE 02/07/2012 LAMBERTO MCCORMACK PHD 304.10 SEDATIVE DEPENDENCE 02/07/2012 MICHELLE LANDISS, BOGDAN J 304.10 SEDATIVE DEPENDENCE 02/07/2012 RICHA DUFF APRN 304.10 SEDATIVE DEPENDENCE 02/07/2012 LAMBERTO MCCORMACK PHD 304.10 SEDATIVE DEPENDENCE 02/07/2012 RICHA DUFF APRN 304.10 SEDATIVE DEPENDENCE 06/09/2013 EASTON , LAMBERTO Pak 300.21 AN PANIC DIS W AGORA 06/09/2013 [facility] LAM[facility] A 300.21 AN PANIC DIS W AGORA 06/09/2013 [facility] , LAMBERTO A 300.21 AN PANIC DIS W AGORA 06/09/2013 [facility] , LAMBERTO Pak 300.21 AN PANIC DIS W AGORA 06/09/2013 [facility] LAM[facility] Pak 300.21 AN PANIC DIS W AGORA 06/09/2013 [facility] , LAMBERTO Pak 300.21 AN PANIC DIS W AGORA 06/09/2013 [facility] , LAMBERTO Pak 300.21 AN PANIC DIS W AGORA 06/09/2013 BOGDAN MARTINEZ DDS 300.21 AN PANIC DIS W AGORA 06/09/2013 RICHA DUFF APRN 300.21 AN PANIC DIS W AGORA 06/09/2013 [facility] LAMBERTO ARMANDO 300.21 AN PANIC DIS W AGORA 06/09/2013 RICHA DUFF APRN 300.21 AN PANIC DIS W AGORA 07/27/2013 EASTON ARMANDO, LAMBERTO A 301.9 PD PERS DIS NOS 07/27/2013 EASTON ARMANDO, LAMBERTO A 301.9 PD PERS DIS NOS 07/27/2013 LAMBERTO MCCORMACK PHD A 301.9 PD PERS DIS NOS 07/27/2013 LAMBERTO MCCORMACK PHD 301.9 PD PERS DIS NOS 07/27/2013 [facility] LAMBERTO ARMANDO 301.9 PD PERS DIS NOS 07/27/2013 BOGDAN MARTINEZ DDS 30 1.9 PD PERS DIS NOS 07/27/2013 RICHA DUFF APRN 301.9 PD PERS DIS NOS 07/27/2013 [facility] LAMBERTO ARMANDO 301.9 PD PERS DIS NOS 07/27/2013 RICHA DUFF APRN 301.9 PD PERS DIS NOS 02/17/2014 ZAINAB FORREST Ot 233.0 02/17/2014 ZAINAB FORREST Ot V15.3 02/17/2014 ZAINAB FORREST Ot V58.69 03/09/2014 RICHA DUFF APRN 309.81 AN PTSD 03/09/2014 LAMBERTO MCCORMACK PHD 309.81 AN PTSD 03/09/2014 RICHA DUFF APRN 309.81 AN PTSD 06/01/2014 LONZAINAB KHOURY N Ot 233.0 06/01/2014 LONZAINAB KHOURY N Ot V15.3 06/01/2014 LONZAINAB KHOURY N Ot V58.69 09/08/2014 LONZAINAB KHOURY N Ot 233.0 09/08/2014 LONZAINAB KHOURY N Ot V15.3 09/08/2014 LONZAINAB KHOURY N Ot V58.69 09/08/2014 LONZAINAB KHOURY N Ot V88.01 09/21/2014 LONZAINAB KHOURY N Ot 233.0 09/21/2014 LONZAINAB KHOURY N Ot V15.3 09/21/2014 LONZAINAB KHOURY N Ot V58.69 09/21/2014 LONZAINAB KHOURY N Ot V88.01 02/22/2015 Ot 233.0 02/22/2015 Ot 244.9 02/22/2015 Ot 250.00 02/22/2015 Ot 272.0 02/22/2015 Ot 300.4 02/22/2015 Ot 327.23 02/22/2015 Ot 401.9 02/22/2015 Ot 715.89 02/22/2015 Ot 721.90 02/22/2015 Ot V16.1 02/22/2015 Ot V16.3 02/22/2015 Ot V16.49 02/22/2015 Ot V58.69 02/22/2015 Ot 233.0 02/22/2015 Ot V15.3 02/22/2015 Ot V58.69 02/22/2015 Ot 233.0 02/22/2015 Ot 250.00 02/22/2015 Ot 278.00 02/22/2015 Ot V15.3 02/22/2015 Ot V58.69 02/22/2015 Ot 233.0 02/22/2015 Ot V15.3 02/22/2015 Ot V58.69 02/22/2015 Ot 233.0 02/22/2015 Ot V15.3 02/22/2015 Ot V58.69 02/22/2015 ZAINAB FORREST N Ot 233.0 02/22/2015 LONZAINAB KHOURY N Ot 715.90 02/22/2015 LONZAINAB KHOURY N Ot V15.3 02/22/2015 MARIIA FORRESTAN N Ot V58.69 02/22/2015 LON, ZAINAB N Ot 233.0 02/22/2015 LON, ZAINAB N Ot V15.3 02/22/2015 LON, ZAINAB N Ot V58.69 02/22/2015 LON, ZAINAB N Ot 233.0 02/22/2015 LON, ZAINAB N Ot V15.3 02/22/2015 LON, ZAINAB N Ot V58.69 02/22/2015 LON, ZAINAB N Ot 233.0 02/22/2015 LON, ZAINAB N Ot V15.3 02/22/2015 LON, ZAINAB N Ot V58.69 02/22/2015 LON, ZAINAB N Ot 233.0 02/22/2015 LON, ZAINAB N Ot V15.3 02/22/2015 LON, ZAINAB N Ot V58.69 02/22/2015 LON, ZAINAB N Ot V88.01 03/11/2015 LONZAINAB KHOURY N Ot D05.92 03/11/2015 LONZAIANB KHOURY N Ot Z79.810 03/11/2015 LONZAINAB KHOURY N Ot Z90.710 03/11/2015 LONZAINAB KHOURY N Ot Z92.3 03/21/2015 LONZAINAB KHOURY N Ot D05.92 03/21/2015 LONZAINAB KHOURY N Ot Z79.810 03/21/2015 LONZAINAB KHOURY N Ot Z90.710 03/21/2015 LONZAINAB KHOURY N Ot Z92.3 08/25/2015 ZAINAB FORREST N Ot D05.92 UNSPECIFIED TYPE OF CARCINOMA IN SITU OF 08/25/2015 ZAINAB FORREST N Ot Z79.810 LNG TRM (CRNT) USE OF SLCTV ESTROG CASER UP 08/25/2015 ZAINAB FORREST N Ot Z90.710 ACQUIRED ABSENCE OF BOTH CERVIX AND UTER 08/25/2015 ZAINAB FORREST N Ot Z92.3 PERSONAL HISTORY OF IRRADIATION 09/29/2015 ZAINAB FORREST N Ot D05.92 UNSPECIFIED TYPE OF CARCINOMA IN SITU OF 09/29/2015 ZAINAB FORREST N Ot Z79.810 LNG TRM (CRNT) USE OF SLCTV ESTROG CASER UP 09/29/2015 ZAINAB FORREST Ot Z90.710 ACQUIRED ABSENCE OF BOTH CERVIX AND UTER 09/29/2015 ZAINAB FORREST Ot Z92.3 PERSONAL HISTORY OF IRRADIATION 10/10/2015 ZAINAB FORREST Ot D05.92 UNSPECIFIED TYPE OF CARCINOMA IN SITU OF 10/10/2015 ZAINAB FORREST Ot Z79.810 LNG TRM (CRNT) USE OF SLCTV ESTROG CASER UP 10/10/2015 ZAINAB FORREST Ot Z90.710 ACQUIRED ABSENCE OF BOTH CERVIX AND UTER 10/10/2015 ZAINAB FORREST Ot Z92.3 PERSONAL HISTORY OF IRRADIATION 08/28/2016 Ot 233.0 CA I N SITU BREAST 08/28/2016 Ot 250.00 MARIAN B BOBBY WO COMPL, TYPE II OR UNSPEC TY 08/28/2016 Ot 278.00 OBE SITY, NOS 08/28/2016 Ot V15.3 HX O F IRRADIATION 08/28/2016 Ot V58.69 OTH MED,LT,CURRENT USE 08/28/2016 Ot 233.0 CA I N SITU BREAST 08/28/2016 Ot V15.3 HX O F IRRADIATION 08/28/2016 Ot V58.69 OTH MED,LT,CURRENT USE 08/28/2016 Ot 233.0 CA I N SITU BREAST 08/28/2016 Ot V15.3 HX O F IRRADIATION 08/28/2016 Ot V58.69 OTH MED,LT,CURRENT USE 08/28/2016 ZAINAB FORREST Tenzin Ot 233.0 CA IN SITU BREAST 08/28/2016 ZAINAB FORREST Tenzin Ot 715.90 OSTEOARTHROS NOS-UNSPEC 08/28/2016 ZAINAB OFRREST Tenzin Ot V15.3 HX OF IRRADIATION 08/28/2016 ZAINAB FORREST Tenzin Ot V58.69 OTH MED,LT,CURRENT USE 08/28/2016 ZAINAB FORREST Tenzin Ot 233.0 CA IN SITU BREAST 08/28/2016 LON ZAINAB Dave Ot V15.3 HX OF IRRADIATION 08/28/2016 ZAINAB FORREST Tenzin Ot V58.69 OTH MED,LT,CURRENT USE 08/28/2016 ZAINAB FORREST Tenzin Ot 233.0 CA IN SITU BREAST 08/28/2016 ZAINAB FORREST Tenzin Ot V15.3 HX OF IRRADIATION 08/28/2016 ZAINAB FORREST Ot V58.69 OTH MED,LT,CURRENT USE 08/28/2016 ZAINAB FORREST Ot 233.0 CA IN SITU BREAST 08/28/2016 ZAINAB FORREST Ot V15.3 HX OF IRRADIATION 08/28/2016 ZAINAB FORREST Ot V58.69 OTH MED,LT,CURRENT USE 08/28/2016 ZAINAB FORREST Ot 233.0 CA IN SITU BREAST 08/28/2016 ZAINAB FORREST Ot V15.3 HX OF IRRADIATION 08/28/2016 ZAINAB FORREST Ot V58.69 OTH MED,LT,CURRENT USE 08/28/2016 ZAINAB FORREST Ot V88.01 ACQUIRED ABSENCE OF BOTH CERVIX AND UTER 08/28/2016 ZAINAB FORREST Tenzin Ot D05.92 UNSPECIFIED TYPE OF CARCINOMA IN SITU OF 08/28/2016 ZAINAB FORREST Tenzin Ot Z79.810 LNG TRM (CRNT) USE OF SLCTV ESTROG CASER UP 08/28/2016 ZAINAB FORREST Tenzin Ot Z90.710 ACQUIRED ABSENCE OF BOTH CERVIX AND UTER 08/28/2016 ZAINAB FORREST Tenzin Ot Z92.3 PERSONAL HISTORY OF IRRADIATION 08/28/2016 ZAINAB FORREST Ot D05.92 UNSPECIFIED TYPE OF CARCINOMA IN SITU OF 08/28/2016 ZAINAB FORREST Ot Z79.810 LNG TRM (CRNT) USE OF SLCTV ESTROG CASER UP 08/28/2016 ZAINAB FORREST Tenzin Ot Z90.710 ACQUIRED ABSENCE OF BOTH CERVIX AND UTER 08/28/2016 ZAINAB FORREST Tenzin Ot Z92.3 PERSONAL HISTORY OF IRRADIATION 08/29/2016 ZAINAB FORREST Tenzin Ot D05.12 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 08/29/2016 ZAINAB FORREST Tenzin Ot E03.9 HYPOTHYROIDISM, UNSPECIFIED 08/29/2016 ZAINAB FORREST Tenzin Ot E11.9 TYPE 2 DIABETES MELLITUS WITHOUT COMPLIC 08/29/2016 ZAINAB FORREST Tenzin Ot E78.00 PURE HYPERCHOLESTEROLEMIA, UNSPECIFIED 08/29/2016 ZAINAB FORREST N Ot F32.9 MAJOR DEPRESSIVE DISORDER, SINGLE EPISOD 08/29/2016 ZAINAB FORREST Tenzin Ot F41.9 ANXIETY DISORDER, UNSPECIFIED 08/29/2016 LON ZAINAB N Ot G47.33 OBSTRUCTIVE SLEEP APNEA (ADULT) (PEDIATR 08/29/2016 LON, BOBAN N Ot I10 ESSENTIAL (PRIMARY) HYPERTENSION 08/29/2016 LON MARIIAAN N Ot K21.9 GASTRO-ESOPHAGEAL REFLUX DISEASE WITHOUT 08/29/2016 LON, BOBAN N Ot N39.3 STRESS INCONTINENCE (FEMALE) (MALE) 08/29/2016 LON MARIIADALE N Ot Z79.899 OTHER HALFWAY (CURRENT) DRUG THERAPY 08/29/2016 LON, MARIIAAN N Ot Z90.710 ACQUIRED ABSENCE OF BOTH CERVIX AND UTER 08/29/2016 LON, BOBAN N Ot Z92.3 PERSONAL HISTORY OF IRRADIATION 09/18/2016 LON, BOBAN N Ot D05.12 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 09/18/2016 LON BOBAN N Ot E03.9 HYPOTHYROIDISM, UNSPECIFIED 09/18/2016 LON, BOBAN N Ot E11.9 TYPE 2 DIABETES MELLITUS WITHOUT COMPLIC 09/18/2016 LONZAINAB N Ot E78.00 PURE HYPERCHOLESTEROLEMIA, UNSPECIFIED 09/18/2016 LON BOBAN N Ot F32.9 MAJOR DEPRESSIVE DISORDER, SINGLE EPISOD 09/18/2016 LONMARIIAAN N Ot F41.9 ANXIETY DISORDER, UNSPECIFIED 09/18/2016 LONZAINAB N Ot G47.33 OBSTRUCTIVE SLEEP APNEA (ADULT) (PEDIATR 09/18/2016 LON BOBAN N Ot I10 ESSENTIAL (PRIMARY) HYPERTENSION 09/18/2016 LONZAINAB N Ot K21.9 GASTRO-ESOPHAGEAL REFLUX DISEASE WITHOUT 09/18/2016 LON BOBAN N Ot N39.3 STRESS INCONTINENCE (FEMALE) (MALE) 09/18/2016 LONMARIIAAN N Ot Z79.899 OTHER HALFWAY (CURRENT) DRUG THERAPY 09/18/2016 LONMARIIAAN N Ot Z90.710 ACQUIRED ABSENCE OF BOTH CERVIX AND UTER 09/18/2016 LONZAINAB N Ot Z92.3 PERSONAL HISTORY OF IRRADIATION 09/28/2016 LONMARIIAAN N Ot D05.12 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 09/28/2016 LON MARIIAAN N Ot E03.9 HYPOTHYROIDISM, UNSPECIFIED 09/28/2016 LON, BOBAN N Ot E11.9 TYPE 2 DIABETES MELLITUS WITHOUT COMPLIC 09/28/2016 LON, BOBAN N Ot E78.00 PURE HYPERCHOLESTEROLEMIA, UNSPECIFIED 09/28/2016 LON, BOBAN N Ot F32.9 MAJOR DEPRESSIVE DISORDER, SINGLE EPISOD 09/28/2016 LON, BOBDALE N Ot F41.9 ANXIETY DISORDER, UNSPECIFIED 09/28/2016 LON, ZAINAB N Ot G47.33 OBSTRUCTIVE SLEEP APNEA (ADULT) (PEDIATR 09/28/2016 LON, BOBDALE N Ot I10 ESSENTIAL (PRIMARY) HYPERTENSION 09/28/2016 LON, BOBAN N Ot K21.9 GASTRO-ESOPHAGEAL REFLUX DISEASE WITHOUT 09/28/2016 LON, BOBAN N Ot N39.3 STRESS INCONTINENCE (FEMALE) (MALE) 09/28/2016 LONZANIAB N Ot Z79.899 OTHER HALFWAY (CURRENT) DRUG THERAPY 09/28/2016 LONZAINAB N Ot Z90.710 ACQUIRED ABSENCE OF BOTH CERVIX AND UTER 09/28/2016 LONZAINAB N Ot Z92.3 PERSONAL HISTORY OF IRRADIATION 10/10/2017 LON, MARIIAAN N Ot D64.9 ANEMIA, UNSPECIFIED 10/10/2017 LONZAINAB N Ot E03.9 HYPOTHYROIDISM, UNSPECIFIED 10/10/2017 LON, BOBAN N Ot E11.9 TYPE 2 DIABETES MELLITUS WITHOUT COMPLIC 10/10/2017 LON, MARIIAAN N Ot E78.00 PURE HYPERCHOLESTEROLEMIA, UNSPECIFIED 10/10/2017 LON, ZAINAB N Ot F32.9 MAJOR DEPRESSIVE DISORDER, SINGLE EPISOD 10/10/2017 LON MARIIADALE N Ot F40.240 CLAUSTROPHOBIA 10/10/2017 LON, BOBAN N Ot F41.9 ANXIETY DISORDER, UNSPECIFIED 10/10/2017 LON, MARIIAAN N Ot G47.33 OBSTRUCTIVE SLEEP APNEA (ADULT) (PEDIATR 10/10/2017 LON, BOBAN N Ot K21.9 GASTRO-ESOPHAGEAL REFLUX DISEASE WITHOUT 10/10/2017 LON, BOBAN N Ot N39.3 STRESS INCONTINENCE (FEMALE) (MALE) 10/10/2017 ZAINAB FORREST N Ot Z09 ENCNTR FOR F/U EXAM AFT TRTMT FOR COND O 10/10/2017 ZAINAB FORREST N Ot Z79.82 MANAGER ADVERTISING (CURRENT) USE OF ASPIRIN 10/10/2017 LONZAINAB N Ot Z79.84 HALFWAY (CURRENT) USE OF ORAL HYPOGLYC 10/10/2017 LONMARIIADALE N Ot Z79.899 OTHER MANAGER ADVERTISING (CURRENT) DRUG THERAPY 10/10/2017 LON, MARIIADALE N Ot Z86.000 PERSONAL HISTORY OF IN-SITU NEOPLASM OF 10/10/2017 LON, MARIIADALE N Ot Z90.710 ACQUIRED ABSENCE OF BOTH CERVIX AND UTER 10/10/2017 ZAINAB FORREST N Ot Z92.3 PERSONAL HISTORY OF IRRADIATION 10/10/2017 LONZAINAB N Ot D64.9 ANEMIA, UNSPECIFIED 10/10/2017 LONZAINAB N Ot E03.9 HYPOTHYROIDISM, UNSPECIFIED 10/10/2017 ZAINAB FORREST N Ot E11.9 TYPE 2 DIABETES MELLITUS WITHOUT COMPLIC 10/10/2017 ZAINAB FORREST N Ot E78.00 PURE HYPERCHOLESTEROLEMIA, UNSPECIFIED 10/10/2017 ZAINAB FORREST N Ot F32.9 MAJOR DEPRESSIVE DISORDER, SINGLE EPISOD 10/10/2017 ZAINAB FORREST N Ot F40.240 CLAUSTROPHOBIA 10/10/2017 LONZAINAB N Ot F41.9 ANXIETY DISORDER, UNSPECIFIED 10/10/2017 MARIIA FORRESTDALE N Ot G47.33 OBSTRUCTIVE SLEEP APNEA (ADULT) (PEDIATR 10/10/2017 ZAINAB FORREST N Ot K21.9 GASTRO-ESOPHAGEAL REFLUX DISEASE WITHOUT 10/10/2017 MARIIA FORRESTDALE N Ot N39.3 STRESS INCONTINENCE (FEMALE) (MALE) 10/10/2017 ZAINAB FORREST Ot Z09 ENCNTR FOR F/U EXAM AFT TRTMT FOR COND O 10/10/2017 ZAINAB FORREST N Ot Z79.82 MANAGER ADVERTISING (CURRENT) USE OF ASPIRIN 10/10/2017 ZAINAB FORREST N Ot Z79.84 HALFWAY (CURRENT) USE OF ORAL HYPOGLYC 10/10/2017 ZAINAB FORREST N Ot Z79.899 OTHER HALFWAY (CURRENT) DRUG THERAPY 10/10/2017 ZAINAB FORREST N Ot Z86.000 PERSONAL HISTORY OF IN-SITU NEOPLASM OF 10/10/2017 LONZAINAB N Ot Z90.710 ACQUIRED ABSENCE OF BOTH CERVIX AND UTER 10/10/2017 ZAINAB FORREST N Ot Z92.3 PERSONAL HISTORY OF IRRADIATION 11/07/2017 ZAINAB FORREST N Ot D64.9 ANEMIA, UNSPECIFIED 11/07/2017 LONMARIIADALE N Ot E03.9 HYPOTHYROIDISM, UNSPECIFIED 11/07/2017 LON MARIIADALE N Ot E11.9 TYPE 2 DIABETES MELLITUS WITHOUT COMPLIC 11/07/2017 LON MARIIADALE Tenzin Ot E78.00 PURE HYPERCHOLESTEROLEMIA, UNSPECIFIED 11/07/2017 LONZAINAB N Ot F32.9 MAJOR DEPRESSIVE DISORDER, SINGLE EPISOD 11/07/2017 LONMARIIADALE N Ot F40.240 CLAUSTROPHOBIA 11/07/2017 LONZAINAB N Ot F41.9 ANXIETY DISORDER, UNSPECIFIED 11/07/2017 LONZAINAB Ot G47.33 OBSTRUCTIVE SLEEP APNEA (ADULT) (PEDIATR 11/07/2017 LONMARIIADALE Tenzin Ot K21.9 GASTRO-ESOPHAGEAL REFLUX DISEASE WITHOUT 11/07/2017 MARIIA FORRESTDALE Tenzin Ot N39.3 STRESS INCONTINENCE (FEMALE) (MALE) 11/07/2017 ZAINAB FORREST Ot Z09 ENCNTR FOR F/U EXAM AFT TRTMT FOR COND O 11/07/2017 LONMARIIADALE N Ot Z79.82 HALFWAY (CURRENT) USE OF ASPIRIN 11/07/2017 ZAINAB FORREST N Ot Z79.84 MANAGER ADVERTISING (CURRENT) USE OF ORAL HYPOGLYC 11/07/2017 LONMARIIADALE N Ot Z79.899 OTHER HALFWAY (CURRENT) DRUG THERAPY 11/07/2017 LONMARIIADALE Tenzin Ot Z86.000 PERSONAL HISTORY OF IN-SITU NEOPLASM OF 11/07/2017 LONMARIIADALE Tenzin Ot Z90.710 ACQUIRED ABSENCE OF BOTH CERVIX AND UTER 11/07/2017 LONMARIIADALE N Ot Z92.3 PERSONAL HISTORY OF IRRADIATION 11/13/2017 LONZAINAB Ot D64.9 ANEMIA, UNSPECIFIED 11/13/2017 LONMARIIADALE N Ot E03.9 HYPOTHYROIDISM, UNSPECIFIED 11/13/2017 LONMARIIADALE N Ot E11.9 TYPE 2 DIABETES MELLITUS WITHOUT COMPLIC 11/13/2017 LONMARIIADALE N Ot E78.00 PURE HYPERCHOLESTEROLEMIA, UNSPECIFIED 11/13/2017 LONZAINAB N Ot F32.9 MAJOR DEPRESSIVE DISORDER, SINGLE EPISOD 11/13/2017 LONZAINAB KHOURY N Ot F40.240 CLAUSTROPHOBIA 11/13/2017 LONZAINAB KHOURY N Ot F41.9 ANXIETY DISORDER, UNSPECIFIED 11/13/2017 LONZAINAB KHOURY N Ot G47.33 OBSTRUCTIVE SLEEP APNEA (ADULT) (PEDIATR 11/13/2017 ZAINAB FORREST N Ot K21.9 GASTRO-ESOPHAGEAL REFLUX DISEASE WITHOUT 11/13/2017 LONZAINAB N Ot N39.3 STRESS INCONTINENCE (FEMALE) (MALE) 11/13/2017 LON ZAINAB N Ot Z09 ENCNTR FOR F/U EXAM AFT TRTMT FOR COND O 11/13/2017 ZAINAB FORREST N Ot Z79.82 MANAGER ADVERTISING (CURRENT) USE OF ASPIRIN 11/13/2017 ZAINAB FORREST N Ot Z79.84 HALFWAY (CURRENT) USE OF ORAL HYPOGLYC 11/13/2017 LONMARIIADALE N Ot Z79.899 OTHER MANAGER ADVERTISING (CURRENT) DRUG THERAPY 11/13/2017 MARIIA FORRESTDALE N Ot Z86.000 PERSONAL HISTORY OF IN-SITU NEOPLASM OF 11/13/2017 LONMARIIADALE N Ot Z90.710 ACQUIRED ABSENCE OF BOTH CERVIX AND UTER 11/13/2017 LONMARIIADALE N Ot Z92.3 PERSONAL HISTORY OF IRRADIATION 12/30/2017 LON ZAINAB N Ot D64.9 ANEMIA, UNSPECIFIED 12/30/2017 LON ZAINAB N Ot E03.9 HYPOTHYROIDISM, UNSPECIFIED 12/30/2017 MARIIA FORRESTDALE N Ot E11.9 TYPE 2 DIABETES MELLITUS WITHOUT COMPLIC 12/30/2017 LONMARIIADALE N Ot E78.00 PURE HYPERCHOLESTEROLEMIA, UNSPECIFIED 12/30/2017 LONMARIIADALE N Ot F32.9 MAJOR DEPRESSIVE DISORDER, SINGLE EPISOD 12/30/2017 LON, MARIIADALE N Ot F40.240 CLAUSTROPHOBIA 12/30/2017 LONZAINAB N Ot F41.9 ANXIETY DISORDER, UNSPECIFIED 12/30/2017 LONMARIIADALE N Ot G47.33 OBSTRUCTIVE SLEEP APNEA (ADULT) (PEDIATR 12/30/2017 LONMARIIADALE N Ot K21.9 GASTRO-ESOPHAGEAL REFLUX DISEASE WITHOUT 12/30/2017 LONZAINAB N Ot N39.3 STRESS INCONTINENCE (FEMALE) (MALE) 12/30/2017 ZAINAB FORREST N Ot Z09 ENCNTR FOR F/U EXAM AFT TRTMT FOR COND O 12/30/2017 LONZAINAB N Ot Z79.82 MANAGER ADVERTISING (CURRENT) USE OF ASPIRIN 12/30/2017 LONZAINAB N Ot Z79.84 HALFWAY (CURRENT) USE OF ORAL HYPOGLYC 12/30/2017 ZAINAB FORREST N Ot Z79.899 OTHER HALFWAY (CURRENT) DRUG THERAPY 12/30/2017 LON ZAINAB Dave Ot Z86.000 PERSONAL HISTORY OF IN-SITU NEOPLASM OF 12/30/2017 LON ZAINAB N Ot Z90.710 ACQUIRED ABSENCE OF BOTH CERVIX AND UTER 12/30/2017 ZAINAB FORREST Ot Z92.3 PERSONAL HISTORY OF IRRADIATION 01/01/2018 ZAINAB FORREST N Ot D64.9 ANEMIA, UNSPECIFIED 01/01/2018 ZAINAB FORREST N Ot E03.9 HYPOTHYROIDISM, UNSPECIFIED 01/01/2018 ZAINAB FORREST N Ot E11.9 TYPE 2 DIABETES MELLITUS WITHOUT COMPLIC 01/01/2018 ZAINAB FORREST N Ot E78.00 PURE HYPERCHOLESTEROLEMIA, UNSPECIFIED 01/01/2018 LONZAINAB N Ot F32.9 MAJOR DEPRESSIVE DISORDER, SINGLE EPISOD 01/01/2018 ZAINAB FORREST N Ot F40.240 CLAUSTROPHOBIA 01/01/2018 ZAINAB FORREST N Ot F41.9 ANXIETY DISORDER, UNSPECIFIED 01/01/2018 MARIIA FORRESTDALE N Ot G47.33 OBSTRUCTIVE SLEEP APNEA (ADULT) (PEDIATR 01/01/2018 ZAINAB FORREST N Ot K21.9 GASTRO-ESOPHAGEAL REFLUX DISEASE WITHOUT 01/01/2018 ZAINAB FORREST N Ot N39.3 STRESS INCONTINENCE (FEMALE) (MALE) 01/01/2018 ZAINAB FORREST N Ot Z09 ENCNTR FOR F/U EXAM AFT TRTMT FOR COND O 01/01/2018 LONZAINAB N Ot Z79.82 HALFWAY (CURRENT) USE OF ASPIRIN 01/01/2018 ZAINAB FORREST N Ot Z79.84 MANAGER ADVERTISING (CURRENT) USE OF ORAL HYPOGLYC 01/01/2018 ZAINAB FORREST N Ot Z79.899 OTHER HALFWAY (CURRENT) DRUG THERAPY 01/01/2018 ZAINAB FORREST Tenzin Ot Z86.000 PERSONAL HISTORY OF IN-SITU NEOPLASM OF 01/01/2018 ZAINAB FORREST Tenzin Ot Z90.710 ACQUIRED ABSENCE OF BOTH CERVIX AND UTER 01/01/2018 ZAINAB FORREST Tenzin Ot Z92.3 PERSONAL HISTORY OF IRRADIATION 01/03/2018 ZAINAB FORREST Tenzin Ot D64.9 ANEMIA, UNSPECIFIED 01/03/2018 ZAINAB FORREST Tenzin Ot E03.9 HYPOTHYROIDISM, UNSPECIFIED 01/03/2018 ZAINAB FORREST N Ot E11.9 TYPE 2 DIABETES MELLITUS WITHOUT COMPLIC 01/03/2018 ZAINAB FORREST Tenzin Ot E78.00 PURE HYPERCHOLESTEROLEMIA, UNSPECIFIED 01/03/2018 ZAINAB FORREST N Ot F32.9 MAJOR DEPRESSIVE DISORDER, SINGLE EPISOD 01/03/2018 ZAINAB FORREST N Ot F40.240 CLAUSTROPHOBIA 01/03/2018 ZAINAB FORREST Tenzin Ot F41.9 ANXIETY DISORDER, UNSPECIFIED 01/03/2018 ZAINAB FORREST Tenzin Ot G47.33 OBSTRUCTIVE SLEEP APNEA (ADULT) (PEDIATR 01/03/2018 ZAINAB FORREST Tenzin Ot K21.9 GASTRO-ESOPHAGEAL REFLUX DISEASE WITHOUT 01/03/2018 ZAINAB FORREST N Ot N39.3 STRESS INCONTINENCE (FEMALE) (MALE) 01/03/2018 ZAINAB FORREST Tenzin Ot Z09 ENCNTR FOR F/U EXAM AFT TRTMT FOR COND O 01/03/2018 ZAINAB FORREST Tenzin Ot Z79.82 HALFWAY (CURRENT) USE OF ASPIRIN 01/03/2018 ZAINAB FORREST Tenzin Ot Z79.84 HALFWAY (CURRENT) USE OF ORAL HYPOGLYC 01/03/2018 ZAINAB FORREST Tenzin Ot Z79.899 OTHER MANAGER ADVERTISING (CURRENT) DRUG THERAPY 01/03/2018 ZAINAB FORREST Tenzin Ot Z86.000 PERSONAL HISTORY OF IN-SITU NEOPLASM OF 01/03/2018 ZAINAB FORREST Tenzin Ot Z90.710 ACQUIRED ABSENCE OF BOTH CERVIX AND UTER 01/03/2018 ZAINAB FORREST Tenzin Ot Z92.3 PERSONAL HISTORY OF IRRADIATION 02/14/2018 ZAINAB FORREST Tenzin Ot D50.9 IRON DEFICIENCY ANEMIA, UNSPECIFIED 02/14/2018 LONZAINAB KHOURY Tenzin Ot E03.9 HYPOTHYROIDISM, UNSPECIFIED 02/14/2018 LONZAINAB Ot E11.9 TYPE 2 DIABETES MELLITUS WITHOUT COMPLIC 02/14/2018 LONZAINAB Ot E78.00 PURE HYPERCHOLESTEROLEMIA, UNSPECIFIED 02/14/2018 LONZAINAB Ot F32.9 MAJOR DEPRESSIVE DISORDER, SINGLE EPISOD 02/14/2018 LONZAINAB Ot F40.240 CLAUSTROPHOBIA 02/14/2018 ZAINAB FORREST Ot F41.9 ANXIETY DISORDER, UNSPECIFIED 02/14/2018 ZAINAB FORREST Ot G47.33 OBSTRUCTIVE SLEEP APNEA (ADULT) (PEDIATR 02/14/2018 LONZAINAB Ot K21.9 GASTRO-ESOPHAGEAL REFLUX DISEASE WITHOUT 02/14/2018 ZAINAB FORREST Ot N39.3 STRESS INCONTINENCE (FEMALE) (MALE) 02/14/2018 ZAINAB FORREST Ot Z09 ENCNTR FOR F/U EXAM AFT TRTMT FOR COND O 02/14/2018 ZAINAB FORREST Ot Z79.82 HALFWAY (CURRENT) USE OF ASPIRIN 02/14/2018 ZAINAB FORREST Ot Z79.84 HALFWAY (CURRENT) USE OF ORAL HYPOGLYC 02/14/2018 ZAINAB FORREST Ot Z79.899 OTHER MANAGER ADVERTISING (CURRENT) DRUG THERAPY 02/14/2018 ZAINAB FORREST Ot Z86.000 PERSONAL HISTORY OF IN-SITU NEOPLASM OF 02/14/2018 ZAINAB FORREST Ot Z90.710 ACQUIRED ABSENCE OF BOTH CERVIX AND UTER 02/14/2018 ZAINAB FORREST Ot Z92.3 PERSONAL HISTORY OF IRRADIATION 03/30/2018 ZAINAB FORREST Ot D50.9 IRON DEFICIENCY ANEMIA, UNSPECIFIED 03/30/2018 ZAINAB FORREST Ot E03.9 HYPOTHYROIDISM, UNSPECIFIED 03/30/2018 ZAINAB FORREST N Ot E11.9 TYPE 2 DIABETES MELLITUS WITHOUT COMPLIC 03/30/2018 ZAINAB FORREST Ot E78.00 PURE HYPERCHOLESTEROLEMIA, UNSPECIFIED 03/30/2018 ZAINAB FORREST N Ot F32.9 MAJOR DEPRESSIVE DISORDER, SINGLE EPISOD 03/30/2018 ZAINAB FORREST N Ot F40.240 CLAUSTROPHOBIA 03/30/2018 ZAINAB FORREST Ot F41.9 ANXIETY DISORDER, UNSPECIFIED 03/30/2018 ZAINAB FORREST Ot G47.33 OBSTRUCTIVE SLEEP APNEA (ADULT) (PEDIATR 03/30/2018 ZAINAB FORREST Ot K21.9 GASTRO-ESOPHAGEAL REFLUX DISEASE WITHOUT 03/30/2018 ZAINAB FORREST Ot N39.3 STRESS INCONTINENCE (FEMALE) (MALE) 03/30/2018 ZAINAB FORREST Ot Z09 ENCNTR FOR F/U EXAM AFT TRTMT FOR COND O 03/30/2018 ZAINAB FORREST Ot Z79.82 HALFWAY (CURRENT) USE OF ASPIRIN 03/30/2018 ZAINAB FORREST Ot Z79.84 HALFWAY (CURRENT) USE OF ORAL HYPOGLYC 03/30/2018 ZAINAB FORREST Ot Z79.899 OTHER MANAGER ADVERTISING (CURRENT) DRUG THERAPY 03/30/2018 ZAINAB FORREST Ot Z86.000 PERSONAL HISTORY OF IN-SITU NEOPLASM OF 03/30/2018 ZAINAB FORREST Ot Z90.710 ACQUIRED ABSENCE OF BOTH CERVIX AND UTER 03/30/2018 ZAINAB FORREST Ot Z92.3 PERSONAL HISTORY OF IRRADIATION 04/05/2018 ZAINAB FORREST Ot D50.9 IRON DEFICIENCY ANEMIA, UNSPECIFIED 04/05/2018 ZAINAB FORREST Ot E03.9 HYPOTHYROIDISM, UNSPECIFIED 04/05/2018 ZAINAB FORREST Ot E11.9 TYPE 2 DIABETES MELLITUS WITHOUT COMPLIC 04/05/2018 ZAINAB FORREST Ot E78.00 PURE HYPERCHOLESTEROLEMIA, UNSPECIFIED 04/05/2018 ZAINAB FORREST Ot F32.9 MAJOR DEPRESSIVE DISORDER, SINGLE EPISOD 04/05/2018 ZAINAB FORREST Ot F40.240 CLAUSTROPHOBIA 04/05/2018 ZAINAB FORREST Ot F41.9 ANXIETY DISORDER, UNSPECIFIED 04/05/2018 ZAINAB FORREST Ot G47.33 OBSTRUCTIVE SLEEP APNEA (ADULT) (PEDIATR 04/05/2018 ZAINAB FORREST Ot K21.9 GASTRO-ESOPHAGEAL REFLUX DISEASE WITHOUT 04/05/2018 ZAINAB FORREST Ot N39.3 STRESS INCONTINENCE (FEMALE) (MALE) 04/05/2018 ZAINAB FORREST Ot Z09 ENCNTR FOR F/U EXAM AFT TRTMT FOR COND O 04/05/2018 ZAINAB FORREST Ot Z79.82 HALFWAY (CURRENT) USE OF ASPIRIN 04/05/2018 ZAINAB FORREST Tenzin Ot Z79.84 HALFWAY (CURRENT) USE OF ORAL HYPOGLYC 04/05/2018 ZAINAB FORREST Tenzin Ot Z79.899 OTHER MANAGER ADVERTISING (CURRENT) DRUG THERAPY 04/05/2018 ZAINAB FORREST Tenzin Ot Z86.000 PERSONAL HISTORY OF IN-SITU NEOPLASM OF 04/05/2018 ZAINAB FORREST Tenzin Ot Z90.710 ACQUIRED ABSENCE OF BOTH CERVIX AND UTER 04/05/2018 ZAINAB FORREST Tenzin Ot Z92.3 PERSONAL HISTORY OF IRRADIATION 04/24/2018 ZAINAB FORREST Tenzin Ot 233.0 CA IN SITU BREAST 04/24/2018 ZAINAB FORREST Tenzin Ot V15.3 HX OF IRRADIATION 04/24/2018 ZAINAB FORREST Tenzin Ot V58.69 OTH MED,LT,CURRENT USE 04/24/2018 ZAINAB FORREST Tenzin Ot 233.0 CA IN SITU BREAST 04/24/2018 ZAINAB FORREST Tenzin Ot V15.3 HX OF IRRADIATION 04/24/2018 ZAINAB FORREST Tenzin Ot V58.69 OTH MED,LT,CURRENT USE 04/24/2018 ZAINAB FORREST Tenzin Ot 233.0 CA IN SITU BREAST 04/24/2018 ZAINAB FORREST Tenzin Ot V15.3 HX OF IRRADIATION 04/24/2018 ZAINAB FORREST Tenzin Ot V58.69 OTH MED,LT,CURRENT USE 04/24/2018 ZAINAB FORREST Tenzin Ot 233.0 CA IN SITU BREAST 04/24/2018 ZAINAB FORREST Tenzin Ot V15.3 HX OF IRRADIATION 04/24/2018 ZAINAB FORREST Tenzin Ot V58.69 OTH MED,LT,CURRENT USE 04/24/2018 ZAINAB FORREST Tenzin Ot V88.01 ACQUIRED ABSENCE OF BOTH CERVIX AND UTER 04/24/2018 ZAINAB FORREST Tenzin Ot D05.92 UNSPECIFIED TYPE OF CARCINOMA IN SITU OF 04/24/2018 ZAINAB FORREST Tenzin Ot Z79.810 LNG TRM (CRNT) USE OF SLCTV ESTROG CASER UP 04/24/2018 ZAINAB FORREST Tenzin Ot Z90.710 ACQUIRED ABSENCE OF BOTH CERVIX AND UTER 04/24/2018 LON MARIIADALE Tenzin Ot Z92.3 PERSONAL HISTORY OF IRRADIATION 04/24/2018 ZAINAB FORREST Tenzin Ot D05.92 UNSPECIFIED TYPE OF CARCINOMA IN SITU OF 04/24/2018 LON ZAINAB Dave Ot Z79.810 LNG TRM (CRNT) USE OF SLCTV ESTROG CASER UP 04/24/2018 LON ZAINAB Dave Ot Z90.710 ACQUIRED ABSENCE OF BOTH CERVIX AND UTER 04/24/2018 LON, ZAINAB Dave Ot Z92.3 PERSONAL HISTORY OF IRRADIATION 04/24/2018 LON ZAINAB Dave Ot D05.12 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 04/24/2018 LON ZAINAB Dave Ot E03.9 HYPOTHYROIDISM, UNSPECIFIED 04/24/2018 LONZAINAB Ot E11.9 TYPE 2 DIABETES MELLITUS WITHOUT COMPLIC 04/24/2018 ZAINAB FORREST Ot E78.00 PURE HYPERCHOLESTEROLEMIA, UNSPECIFIED 04/24/2018 ZAINAB FORREST Ot F32.9 MAJOR DEPRESSIVE DISORDER, SINGLE EPISOD 04/24/2018 LONZAINAB Ot F41.9 ANXIETY DISORDER, UNSPECIFIED 04/24/2018 LONZAINAB Ot G47.33 OBSTRUCTIVE SLEEP APNEA (ADULT) (PEDIATR 04/24/2018 LONZAINAB Ot I10 ESSENTIAL (PRIMARY) HYPERTENSION 04/24/2018 LONZAINAB Ot K21.9 GASTRO-ESOPHAGEAL REFLUX DISEASE WITHOUT 04/24/2018 ZAINAB FORREST Ot N39.3 STRESS INCONTINENCE (FEMALE) (MALE) 04/24/2018 LONZAINAB Ot Z79.899 OTHER HALFWAY (CURRENT) DRUG THERAPY 04/24/2018 LONZAINAB Ot Z90.710 ACQUIRED ABSENCE OF BOTH CERVIX AND UTER 04/24/2018 LONZAINAB Ot Z92.3 PERSONAL HISTORY OF IRRADIATION 04/24/2018 LONZAINAB Ot D50.9 IRON DEFICIENCY ANEMIA, UNSPECIFIED 04/24/2018 ZAINAB FORREST Ot E03.9 HYPOTHYROIDISM, UNSPECIFIED 04/24/2018 ZAINAB FORREST N Ot E11.9 TYPE 2 DIABETES MELLITUS WITHOUT COMPLIC 04/24/2018 ZAINAB FORREST Ot E78.00 PURE HYPERCHOLESTEROLEMIA, UNSPECIFIED 04/24/2018 ZAINAB FORREST Ot F32.9 MAJOR DEPRESSIVE DISORDER, SINGLE EPISOD 04/24/2018 ZAINAB FORREST Tenzin Ot F40.240 CLAUSTROPHOBIA 04/24/2018 ZAINAB FORREST Tenzin Ot F41.9 ANXIETY DISORDER, UNSPECIFIED 04/24/2018 LON MARIIADALE Tenzin Ot G47.33 OBSTRUCTIVE SLEEP APNEA (ADULT) (PEDIATR 04/24/2018 ZAINAB FORREST Tenzin Ot K21.9 GASTRO-ESOPHAGEAL REFLUX DISEASE WITHOUT 04/24/2018 ZAINAB FORREST Tenzin Ot N39.3 STRESS INCONTINENCE (FEMALE) (MALE) 04/24/2018 LON ZAINAB Dave Ot Z09 ENCNTR FOR F/U EXAM AFT TRTMT FOR COND O 04/24/2018 LON ZAINAB Tenzin Ot Z79.82 HALFWAY (CURRENT) USE OF ASPIRIN 04/24/2018 ZAINAB FORREST Ot Z79.84 MANAGER ADVERTISING (CURRENT) USE OF ORAL HYPOGLYC 04/24/2018 LONMARIIADALE Tenzin Ot Z79.899 OTHER MANAGER ADVERTISING (CURRENT) DRUG THERAPY 04/24/2018 LON MARIIADALE Tenzin Ot Z86.000 PERSONAL HISTORY OF IN-SITU NEOPLASM OF 04/24/2018 ZAINAB FORREST Tenzin Ot Z90.710 ACQUIRED ABSENCE OF BOTH CERVIX AND UTER 04/24/2018 LON ZAINAB Tenzin Ot Z92.3 PERSONAL HISTORY OF IRRADIATION 04/29/2018 LONZIANAB Ot 233.0 CA IN SITU BREAST 04/29/2018 LONZAINAB Ot V15.3 HX OF IRRADIATION 04/29/2018 LONMRAIIADALE Tenzin Ot V58.69 OTH MED,LT,CURRENT USE 04/29/2018 LONZAINAB Ot 233.0 CA IN SITU BREAST 04/29/2018 LONZAINAB Ot V15.3 HX OF IRRADIATION 04/29/2018 LONZAINAB Ot V58.69 OTH MED,LT,CURRENT USE 04/29/2018 LONZAINAB Ot 233.0 CA IN SITU BREAST 04/29/2018 LONZAINAB N Ot V15.3 HX OF IRRADIATION 04/29/2018 LONZAINAB Ot V58.69 OTH MED,LT,CURRENT USE 04/29/2018 ZAINAB FORREST N Ot 233.0 CA IN SITU BREAST 04/29/2018 LONZAINAB Ot V15.3 HX OF IRRADIATION 04/29/2018 ZAINBA FORREST Ot V58.69 OTH MED,LT,CURRENT USE 04/29/2018 ZAINAB FORREST Tenzin Ot V88.01 ACQUIRED ABSENCE OF BOTH CERVIX AND UTER 04/29/2018 ZAINAB FORREST N Ot D05.92 UNSPECIFIED TYPE OF CARCINOMA IN SITU OF 04/29/2018 ZAINAB FORREST Tenzin Ot Z79.810 LNG TRM (CRNT) USE OF SLCTV ESTROG CASER UP 04/29/2018 ZAINAB FORREST N Ot Z90.710 ACQUIRED ABSENCE OF BOTH CERVIX AND UTER 04/29/2018 ZAINAB FORREST Tenzin Ot Z92.3 PERSONAL HISTORY OF IRRADIATION 04/29/2018 ZAINAB FORREST N Ot D05.92 UNSPECIFIED TYPE OF CARCINOMA IN SITU OF 04/29/2018 ZAINAB FORREST Tenzin Ot Z79.810 LNG TRM (CRNT) USE OF SLCTV ESTROG CASER UP 04/29/2018 ZAINAB FORREST N Ot Z90.710 ACQUIRED ABSENCE OF BOTH CERVIX AND UTER 04/29/2018 ZAINAB FORREST Tenzin Ot Z92.3 PERSONAL HISTORY OF IRRADIATION 04/29/2018 ZAINAB FORREST Tenzin Ot D05.12 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 04/29/2018 ZAINAB FORREST N Ot E03.9 HYPOTHYROIDISM, UNSPECIFIED 04/29/2018 LON, MARIIADALE N Ot E11.9 TYPE 2 DIABETES MELLITUS WITHOUT COMPLIC 04/29/2018 ZAINAB FORREST N Ot E78.00 PURE HYPERCHOLESTEROLEMIA, UNSPECIFIED 04/29/2018 LONZAINAB N Ot F32.9 MAJOR DEPRESSIVE DISORDER, SINGLE EPISOD 04/29/2018 LON, ZAINAB N Ot F41.9 ANXIETY DISORDER, UNSPECIFIED 04/29/2018 LON MARIIADALE N Ot G47.33 OBSTRUCTIVE SLEEP APNEA (ADULT) (PEDIATR 04/29/2018 ZAINAB FORREST N Ot I10 ESSENTIAL (PRIMARY) HYPERTENSION 04/29/2018 ZAINAB FORREST N Ot K21.9 GASTRO-ESOPHAGEAL REFLUX DISEASE WITHOUT 04/29/2018 ZAINAB FORREST N Ot N39.3 STRESS INCONTINENCE (FEMALE) (MALE) 04/29/2018 LONZAINAB N Ot Z79.899 OTHER HALFWAY (CURRENT) DRUG THERAPY 04/29/2018 ZAINAB FORREST Ot Z90.710 ACQUIRED ABSENCE OF BOTH CERVIX AND UTER 04/29/2018 ZAINAB FORREST Ot Z92.3 PERSONAL HISTORY OF IRRADIATION 04/29/2018 SELF NITISH HARRIS Ot M17.11 UNILATERAL PRIMARY OSTEOARTHRITIS, RIGHT 04/29/2018 SELF NITISH HARRIS Ot M25.51 1 PAIN IN RIGHT SHOULDER 05/01/2018 SELF NITISH HARRIS Ot M17.11 UNILATERAL PRIMARY OSTEOARTHRITIS, RIGHT 05/01/2018 SELF NITISH HARRIS Ot M25.51 1 PAIN IN RIGHT SHOULDER 05/02/2018 SEPIDEH BURTON Ot M19.011 PRIMARY OSTEOARTHRITIS, RIGHT SHOULDER 05/02/2018 SEPIDEH BURTON Ot S40.011A CONTUSION OF RIGHT SHOULDER, INITIAL ENC 06/08/2018 SELF NITISH HARRIS Ot M17.11 UNILATERAL PRIMARY OSTEOARTHRITIS, RIGHT 06/08/2018 SELF NITISH HARRIS Ot M25.51 1 PAIN IN RIGHT SHOULDER 06/08/2018 SELF NITISH HARRIS Ot M17.11 UNILATERAL PRIMARY OSTEOARTHRITIS, RIGHT 06/08/2018 SELF NITISH HARRIS Ot M25.51 1 PAIN IN RIGHT SHOULDER 06/08/2018 ZAINAB FORREST Ot 233.0 CA IN SITU BREAST 06/08/2018 ZAINAB FORREST Ot V15.3 HX OF IRRADIATION 06/08/2018 ZAINAB FORREST Ot V58.69 OTH MED,LT,CURRENT USE 06/08/2018 ZAINAB FORREST N Ot 233.0 CA IN SITU BREAST 06/08/2018 ZAINAB FORREST Ot V15.3 HX OF IRRADIATION 06/08/2018 ZAINAB FORREST Ot V58.69 OTH MED,LT,CURRENT USE 06/08/2018 ZAINAB FORREST N Ot 233.0 CA IN SITU BREAST 06/08/2018 ZAINAB FORREST N Ot V15.3 HX OF IRRADIATION 06/08/2018 ZAINAB FORREST N Ot V58.69 OTH MED,LT,CURRENT USE 06/08/2018 ZAINAB FORREST N Ot 233.0 CA IN SITU BREAST 06/08/2018 ZAINAB FORREST N Ot V15.3 HX OF IRRADIATION 06/08/2018 ZAINAB FORREST Ot V58.69 OTH MED,LT,CURRENT USE 06/08/2018 ZAINAB FORREST N Ot V88.01 ACQUIRED ABSENCE OF BOTH CERVIX AND UTER 06/08/2018 ZAINAB FORREST Tenzin Ot D05.92 UNSPECIFIED TYPE OF CARCINOMA IN SITU OF 06/08/2018 ZAINAB FORREST Tenzin Ot Z79.810 LNG TRM (CRNT) USE OF SLCTV ESTROG CASER UP 06/08/2018 ZAINAB FORREST N Ot Z90.710 ACQUIRED ABSENCE OF BOTH CERVIX AND UTER 06/08/2018 ZAINAB FORREST Tenzin Ot Z92.3 PERSONAL HISTORY OF IRRADIATION 06/08/2018 ZAINAB FORREST Tenzin Ot D05.92 UNSPECIFIED TYPE OF CARCINOMA IN SITU OF 06/08/2018 ZAINAB FORREST Tenzin Ot Z79.810 LNG TRM (CRNT) USE OF SLCTV ESTROG CASER UP 06/08/2018 ZAINAB FORREST Tenzin Ot Z90.710 ACQUIRED ABSENCE OF BOTH CERVIX AND UTER 06/08/2018 ZAINAB FORREST Tenzin Ot Z92.3 PERSONAL HISTORY OF IRRADIATION 06/08/2018 ZAINAB FORREST Tenzin Ot D05.12 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 06/08/2018 ZAINAB FORREST N Ot E03.9 HYPOTHYROIDISM, UNSPECIFIED 06/08/2018 ZAINAB FORREST N Ot E11.9 TYPE 2 DIABETES MELLITUS WITHOUT COMPLIC 06/08/2018 ZAINAB FORREST N Ot E78.00 PURE HYPERCHOLESTEROLEMIA, UNSPECIFIED 06/08/2018 ZAINAB FORREST N Ot F32.9 MAJOR DEPRESSIVE DISORDER, SINGLE EPISOD 06/08/2018 LON MARIIADALE N Ot F41.9 ANXIETY DISORDER, UNSPECIFIED 06/08/2018 ZAINAB FORREST N Ot G47.33 OBSTRUCTIVE SLEEP APNEA (ADULT) (PEDIATR 06/08/2018 ZAINAB FORREST N Ot I10 ESSENTIAL (PRIMARY) HYPERTENSION 06/08/2018 ZAINAB FORREST N Ot K21.9 GASTRO-ESOPHAGEAL REFLUX DISEASE WITHOUT 06/08/2018 LON, MARIIADALE N Ot N39.3 STRESS INCONTINENCE (FEMALE) (MALE) 06/08/2018 ZAINAB FORREST N Ot Z79.899 OTHER HALFWAY (CURRENT) DRUG THERAPY 06/08/2018 ZAINAB FORREST N Ot Z90.710 ACQUIRED ABSENCE OF BOTH CERVIX AND UTER 06/08/2018 ZAINAB FORREST Tenzin Ot Z92.3 PERSONAL HISTORY OF IRRADIATION 06/08/2018 ZAINAB FORREST Tenzin Ot D50.9 IRON DEFICIENCY ANEMIA, UNSPECIFIED 06/08/2018 LON ZAINAB Dave Ot E03.9 HYPOTHYROIDISM, UNSPECIFIED 06/08/2018 LON ZAINAB Dave Ot E11.9 TYPE 2 DIABETES MELLITUS WITHOUT COMPLIC 06/08/2018 LON MARIIADALE Tenzin Ot E78.00 PURE HYPERCHOLESTEROLEMIA, UNSPECIFIED 06/08/2018 LON ZAINAB Dave Ot F32.9 MAJOR DEPRESSIVE DISORDER, SINGLE EPISOD 06/08/2018 LON ZAINAB Dave Ot F40.240 CLAUSTROPHOBIA 06/08/2018 LONZAINAB Ot F41.9 ANXIETY DISORDER, UNSPECIFIED 06/08/2018 LON ZAINAB Dave Ot G47.33 OBSTRUCTIVE SLEEP APNEA (ADULT) (PEDIATR 06/08/2018 LONMARIIADALE Tenzin Ot K21.9 GASTRO-ESOPHAGEAL REFLUX DISEASE WITHOUT 06/08/2018 ZAINAB FORREST Tenzin Ot N39.3 STRESS INCONTINENCE (FEMALE) (MALE) 06/08/2018 LONZAINAB Ot Z09 ENCNTR FOR F/U EXAM AFT TRTMT FOR COND O 06/08/2018 LON ZAINAB Tenzin Ot Z79.82 HALFWAY (CURRENT) USE OF ASPIRIN 06/08/2018 ZAINAB FORREST Ot Z79.84 HALFWAY (CURRENT) USE OF ORAL HYPOGLYC 06/08/2018 LONMARIIADALE Tenzin Ot Z79.899 OTHER MANAGER ADVERTISING (CURRENT) DRUG THERAPY 06/08/2018 LONMARIIADALE Tenzin Ot Z86.000 PERSONAL HISTORY OF IN-SITU NEOPLASM OF 06/08/2018 LONZAINAB Ot Z90.710 ACQUIRED ABSENCE OF BOTH CERVIX AND UTER 06/08/2018 LONMARIIADALE Tenzin Ot Z92.3 PERSONAL HISTORY OF IRRADIATION 06/08/2018 SELF NITISH HARRIS Ot M17.11 UNILATERAL PRIMARY OSTEOARTHRITIS, RIGHT 06/08/2018 SELF NITISH HARRIS Ot M25.51 1 PAIN IN RIGHT SHOULDER 06/08/2018 SEPIDEH BURTON Ot M19.011 PRIMARY OSTEOARTHRITIS, RIGHT SHOULDER 06/08/2018 SEPIDEH BURTON Ot S40.011A CONTUSION OF RIGHT SHOULDER, INITIAL ENC 06/16/2018 SELF NITISH HARRIS Ot M17.11 UNILATERAL PRIMARY OSTEOARTHRITIS, RIGHT 06/16/2018 NITISH VARELA MD Ot M25.51 1 PAIN IN RIGHT SHOULDER 07/20/2018 DAYSI DE LA FUENTE MD, Ot N30.0 0 ACUTE CYSTITIS WITHOUT HEMATURIA 07/20/2018 DAYSI DE LA FUENTE MD, Ot R10.1 3 EPIGASTRIC PAIN 07/20/2018 DAYSI DE LA FUENTE MD, Ot Z88.0 ALLERGY STATUS TO PENICILLIN 07/20/2018 DAYSI DE LA FUENTE MD, Ot Z88.1 ALLERGY STATUS TO OTHER ANTIBIOTIC AGENT 07/20/2018 DAYSI DE LA FUENTE MD, Ot Z88.2 ALLERGY STATUS TO SULFONAMIDES STATUS 07/20/2018 DAYSI DE LA FUENTE MD, Ot Z88.8 ALLERGY STATUS TO OTH DRUG/MEDS/BIOL SUB 07/28/2018 ZAINAB FORREST Ot D50.9 IRON DEFICIENCY ANEMIA, UNSPECIFIED 07/28/2018 ZAINAB FORREST Ot E03.9 HYPOTHYROIDISM, UNSPECIFIED 07/28/2018 ZAINAB FORREST Ot E11.9 TYPE 2 DIABETES MELLITUS WITHOUT COMPLIC 07/28/2018 ZAINAB FORREST Ot E78.00 PURE HYPERCHOLESTEROLEMIA, UNSPECIFIED 07/28/2018 ZAINAB FORREST Ot F32.9 MAJOR DEPRESSIVE DISORDER, SINGLE EPISOD 07/28/2018 ZAINAB FORREST Ot F40.240 CLAUSTROPHOBIA 07/28/2018 ZAINAB FORREST Ot F41.9 ANXIETY DISORDER, UNSPECIFIED 07/28/2018 ZAINAB FORREST Ot G47.33 OBSTRUCTIVE SLEEP APNEA (ADULT) (PEDIATR 07/28/2018 ZAINAB FORREST Ot K21.9 GASTRO-ESOPHAGEAL REFLUX DISEASE WITHOUT 07/28/2018 ZAINAB FORREST Ot N39.3 STRESS INCONTINENCE (FEMALE) (MALE) 07/28/2018 ZAINAB FORREST Ot Z09 ENCNTR FOR F/U EXAM AFT TRTMT FOR COND O 07/28/2018 ZAINAB FORREST Ot Z79.82 MANAGER ADVERTISING (CURRENT) USE OF ASPIRIN 07/28/2018 ZAINAB FORREST Ot Z79.84 MANAGER ADVERTISING (CURRENT) USE OF ORAL HYPOGLYC 07/28/2018 ZAINAB FORREST Ot Z79.899 OTHER HALFWAY (CURRENT) DRUG THERAPY 07/28/2018 ZAINAB FORREST Ot Z86.000 PERSONAL HISTORY OF IN-SITU NEOPLASM OF 07/28/2018 ZAINAB FORREST Ot Z90.710 ACQUIRED ABSENCE OF BOTH CERVIX AND UTER 07/28/2018 ZAINAB FORREST Tenzin Ot Z92.3 PERSONAL HISTORY OF IRRADIATION 07/29/2018 ZAINAB FORREST Tenzin Ot D50.9 IRON DEFICIENCY ANEMIA, UNSPECIFIED 07/29/2018 ZAINAB FORREST Tenzin Ot E03.9 HYPOTHYROIDISM, UNSPECIFIED 07/29/2018 ZAINAB FORREST Tenzin Ot E11.9 TYPE 2 DIABETES MELLITUS WITHOUT COMPLIC 07/29/2018 ZAINAB FORREST Tenzin Ot E78.00 PURE HYPERCHOLESTEROLEMIA, UNSPECIFIED 07/29/2018 ZAINAB FORREST Tenzin Ot F32.9 MAJOR DEPRESSIVE DISORDER, SINGLE EPISOD 07/29/2018 ZAINAB FORREST Tenzin Ot F40.240 CLAUSTROPHOBIA 07/29/2018 ZAINAB FORREST Tenzin Ot F41.9 ANXIETY DISORDER, UNSPECIFIED 07/29/2018 ZAINAB FORREST Tenzin Ot G47.33 OBSTRUCTIVE SLEEP APNEA (ADULT) (PEDIATR 07/29/2018 ZAINAB FORREST Tenzin Ot K21.9 GASTRO-ESOPHAGEAL REFLUX DISEASE WITHOUT 07/29/2018 ZAINAB FORREST Ot N39.3 STRESS INCONTINENCE (FEMALE) (MALE) 07/29/2018 ZAINAB FORREST Tenzin Ot Z09 ENCNTR FOR F/U EXAM AFT TRTMT FOR COND O 07/29/2018 ZAINAB FORREST Tenzin Ot Z79.82 HALFWAY (CURRENT) USE OF ASPIRIN 07/29/2018 ZAINAB FORREST Tenzin Ot Z79.84 HALFWAY (CURRENT) USE OF ORAL HYPOGLYC 07/29/2018 ZAINAB FORREST Tenzin Ot Z79.899 OTHER MANAGER ADVERTISING (CURRENT) DRUG THERAPY 07/29/2018 ZAINAB FORREST Ot Z86.000 PERSONAL HISTORY OF IN-SITU NEOPLASM OF 07/29/2018 ZAINAB FORREST Tenzin Ot Z90.710 ACQUIRED ABSENCE OF BOTH CERVIX AND UTER 07/29/2018 ZAINAB FORREST Tenzin Ot Z92.3 PERSONAL HISTORY OF IRRADIATION 10/03/2018 STEW HERBERT DO Ot E11 .9 TYPE 2 DIABETES MELLITUS WITHOUT COMPLIC 10/03/2018 STEW HERBERT DO, Ot F41 .9 ANXIETY DISORDER, UNSPECIFIED 10/03/2018 STEW HERBERT DO, Ot G47.30 SLEEP APNEA, UNSPECIFIED 10/03/2018 STEW HERBERT DO, Ot I10 ESSENTIAL (PRIMARY) HYPERTENSION 10/03/2018 STEW HERBERT DO, Ot K21 .9 GASTRO-ESOPHAGEAL REFLUX DISEASE WITHOUT 10/03/2018 STEW HERBERT DO, Ot M54 .5 LOW BACK PAIN 10/03/2018 STEW HERBERT DO, Ot S00.01XA ABRASION OF SCALP, INITIAL ENCOUNTER 10/03/2018 STEW HERBERT DO, Ot S09.90XA UNSPECIFIED INJURY OF HEAD, INITIAL ENCO 10/03/2018 STEW HERBERT DO, Ot S16.1XXA STRAIN OF MUSCLE, FASCIA AND TENDON AT N 10/03/2018 STEW HERBERT DO, Ot S20.212A CONTUSION OF LEFT FRONT WALL OF THORAX, 10/03/2018 STEW HERBERT DO, Ot S39.012A STRAIN OF MUSCLE, FASCIA AND TENDON OF L 10/03/2018 STEW HERBERT DO, Ot S50.312A ABRASION OF LEFT ELBOW, INITIAL ENCOUNTE 10/03/2018 STEW HERBERT DO, Ot W01.198A FALL SAME LEV FROM SLIP/TRIP W STRIKE AG 10/03/2018 STEW HERBERT DO, Ot Z88 .1 ALLERGY STATUS TO OTHER ANTIBIOTIC AGENT 10/03/2018 STEW HERBERT DO, Ot Z88 .2 ALLERGY STATUS TO SULFONAMIDES STATUS 10/03/2018 STEW HERBERT DO, Ot Z88 .5 ALLERGY STATUS TO NARCOTIC AGENT STATUS 10/03/2018 STEW HERBERT DO, Ot Z88 .8 ALLERGY STATUS TO OTH DRUG/MEDS/BIOL SUB 10/03/2018 STEW HERBERT DO, Ot Z90.710 ACQUIRED ABSENCE OF BOTH CERVIX AND UTER 10/06/2018 ZAINAB FORREST Ot 233.0 CA IN SITU BREAST 10/06/2018 ZAINAB FORREST Ot V15.3 HX OF IRRADIATION 10/06/2018 ZAINAB FORREST Ot V58.69 OTH MED,LT,CURRENT USE 10/06/2018 ZAINAB FORREST Ot 233.0 CA IN SITU BREAST 10/06/2018 ZAINAB FORREST Ot V15.3 HX OF IRRADIATION 10/06/2018 ZAINAB FORREST Ot V58.69 OTH MED,LT,CURRENT USE 10/06/2018 LON, BOBAN N Ot 233.0 CA IN SITU BREAST 10/06/2018 ZAINAB FORREST N Ot V15.3 HX OF IRRADIATION 10/06/2018 ZAINAB FORREST Ot V58.69 OTH MED,LT,CURRENT USE 10/06/2018 ZAINAB FORREST N Ot V88.01 ACQUIRED ABSENCE OF BOTH CERVIX AND UTER 10/06/2018 ZAINAB FORREST N Ot D05.92 UNSPECIFIED TYPE OF CARCINOMA IN SITU OF 10/06/2018 ZAINAB FORREST N Ot Z79.810 LNG TRM (CRNT) USE OF SLCTV ESTROG CASER UP 10/06/2018 ZAINAB FORREST N Ot Z90.710 ACQUIRED ABSENCE OF BOTH CERVIX AND UTER 10/06/2018 ZAINAB FORREST N Ot Z92.3 PERSONAL HISTORY OF IRRADIATION 10/06/2018 ZAINAB FORREST N Ot D05.92 UNSPECIFIED TYPE OF CARCINOMA IN SITU OF 10/06/2018 ZAINAB FORREST N Ot Z79.810 LNG TRM (CRNT) USE OF SLCTV ESTROG CASER UP 10/06/2018 ZAINAB FORREST N Ot Z90.710 ACQUIRED ABSENCE OF BOTH CERVIX AND UTER 10/06/2018 ZAINAB FORREST N Ot Z92.3 PERSONAL HISTORY OF IRRADIATION 10/06/2018 ZAINAB FORREST N Ot D05.12 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 10/06/2018 ZAINAB FORREST N Ot E03.9 HYPOTHYROIDISM, UNSPECIFIED 10/06/2018 LON MARIIADALE N Ot E11.9 TYPE 2 DIABETES MELLITUS WITHOUT COMPLIC 10/06/2018 LON MARIIADALE N Ot E78.00 PURE HYPERCHOLESTEROLEMIA, UNSPECIFIED 10/06/2018 LON ZAINAB N Ot F32.9 MAJOR DEPRESSIVE DISORDER, SINGLE EPISOD 10/06/2018 LON MARIIAAN N Ot F41.9 ANXIETY DISORDER, UNSPECIFIED 10/06/2018 LON ZAINAB N Ot G47.33 OBSTRUCTIVE SLEEP APNEA (ADULT) (PEDIATR 10/06/2018 LON ZAINAB N Ot I10 ESSENTIAL (PRIMARY) HYPERTENSION 10/06/2018 LON, ZAINAB N Ot K21.9 GASTRO-ESOPHAGEAL REFLUX DISEASE WITHOUT 10/06/2018 LON MARIIAAN N Ot N39.3 STRESS INCONTINENCE (FEMALE) (MALE) 10/06/2018 ZAINAB FORREST N Ot Z79.899 OTHER HALFWAY (CURRENT) DRUG THERAPY 10/06/2018 ZAINAB FORREST Ot Z90.710 ACQUIRED ABSENCE OF BOTH CERVIX AND UTER 10/06/2018 ZAINAB FORREST Ot Z92.3 PERSONAL HISTORY OF IRRADIATION 10/06/2018 SELF NITISH HARRIS Ot M17.11 UNILATERAL PRIMARY OSTEOARTHRITIS, RIGHT 10/06/2018 SELF NITISH HARRIS Ot M25.51 1 PAIN IN RIGHT SHOULDER 10/06/2018 SEPIDEH BURTON Ot M19.011 PRIMARY OSTEOARTHRITIS, RIGHT SHOULDER 10/06/2018 SEPIDEH BURTON Ot S40.011A CONTUSION OF RIGHT SHOULDER, INITIAL ENC 10/06/2018 ZULEYKA DPM, MORGAN Q Ot R52 PAIN, UNSPECIFIED 10/06/2018 ZULEYKA DPM, MORGAN Q Ot R60. 9 EDEMA, UNSPECIFIED 10/07/2018 STEW HERBERT DO, Ot E11 .9 TYPE 2 DIABETES MELLITUS WITHOUT COMPLIC 10/07/2018 STEW HERBERT DO, Ot F41 .9 ANXIETY DISORDER, UNSPECIFIED 10/07/2018 STEW HERBERT DO, Ot G47.30 SLEEP APNEA, UNSPECIFIED 10/07/2018 STEW HERBERT DO, Ot I10 ESSENTIAL (PRIMARY) HYPERTENSION 10/07/2018 STEW HERBERT DO, Ot K21 .9 GASTRO-ESOPHAGEAL REFLUX DISEASE WITHOUT 10/07/2018 STEW HERBERT DO, Ot M54 .5 LOW BACK PAIN 10/07/2018 STEW HERBERT DO, Ot S00.01XA ABRASION OF SCALP, INITIAL ENCOUNTER 10/07/2018 STEW HERBERT DO, Ot S09.90XA UNSPECIFIED INJURY OF HEAD, INITIAL ENCO 10/07/2018 STEW HERBERT DO, Ot S16.1XXA STRAIN OF MUSCLE, FASCIA AND TENDON AT N 10/07/2018 STEW HERBERT DO, Ot S20.212A CONTUSION OF LEFT FRONT WALL OF THORAX, 10/07/2018 STEW HERBERT DO, Ot S39.012A STRAIN OF MUSCLE, FASCIA AND TENDON OF L 10/07/2018 STEW HERBERT DO, Ot S50.312A ABRASION OF LEFT ELBOW, INITIAL ENCOUNTE 10/07/2018 STEW HERBERT DO, Ot W01.198A FALL SAME LEV FROM SLIP/TRIP W STRIKE AG 10/07/2018 STEW HERBERT DO, Ot Z88 .1 ALLERGY STATUS TO OTHER ANTIBIOTIC AGENT 10/07/2018 STEW HERBERT DO, Ot Z88 .2 ALLERGY STATUS TO SULFONAMIDES STATUS 10/07/2018 STEW HERBERT DO, Ot Z88 .5 ALLERGY STATUS TO NARCOTIC AGENT STATUS 10/07/2018 STEW HERBERT DO, Ot Z88 .8 ALLERGY STATUS TO OTH DRUG/MEDS/BIOL SUB 10/07/2018 STEW HERBERT DO, Ot Z90.710 ACQUIRED ABSENCE OF BOTH CERVIX AND UTER 10/07/2018 STEW HERBERT DO, Ot E11 .9 TYPE 2 DIABETES MELLITUS WITHOUT COMPLIC 10/07/2018 STEW HERBERT DO, Ot F41 .9 ANXIETY DISORDER, UNSPECIFIED 10/07/2018 STEW HERBERT DO, Ot G47.30 SLEEP APNEA, UNSPECIFIED 10/07/2018 STEW HERBERT DO, Ot I10 ESSENTIAL (PRIMARY) HYPERTENSION 10/07/2018 STEW HERBERT DO, Ot K21 .9 GASTRO-ESOPHAGEAL REFLUX DISEASE WITHOUT 10/07/2018 STEW HERBERT DO, Ot M54 .5 LOW BACK PAIN 10/07/2018 STEW HERBERT DO, Ot S00.01XA ABRASION OF SCALP, INITIAL ENCOUNTER 10/07/2018 STEW HERBERT DO, Ot S09.90XA UNSPECIFIED INJURY OF HEAD, INITIAL ENCO 10/07/2018 STEW HERBERT DO, Ot S16.1XXA STRAIN OF MUSCLE, FASCIA AND TENDON AT N 10/07/2018 STEW HERBERT DO, Ot S20.212A CONTUSION OF LEFT FRONT WALL OF THORAX, 10/07/2018 STEW HERBERT DO, Ot S39.012A STRAIN OF MUSCLE, FASCIA AND TENDON OF L 10/07/2018 STEW HERBERT DO, Ot S50.312A ABRASION OF LEFT ELBOW, INITIAL ENCOUNTE 10/07/2018 STEW HERBERT DO Ot W01.198A FALL SAME LEV FROM SLIP/TRIP W STRIKE AG 10/07/2018 STEW HERBERT DO, Ot Z88 .1 ALLERGY STATUS TO OTHER ANTIBIOTIC AGENT 10/07/2018 STEW HERBERT DO, Ot Z88 .2 ALLERGY STATUS TO SULFONAMIDES STATUS 10/07/2018 STEW HERBERT DO, Ot Z88 .5 ALLERGY STATUS TO NARCOTIC AGENT STATUS 10/07/2018 STEW HERBERT DO, Ot Z88 .8 ALLERGY STATUS TO OT DRUG/MEDS/BIOL SUB 10/07/2018 KEON FAIRBANKS STEW Purcell Ot Z90.710 ACQUIRED ABSENCE OF BOTH CERVIX AND UTER 11/26/2018 LONZAINAB KHOURY N Ot 233.0 CA IN SITU BREAST 11/26/2018 ZAINAB FORREST N Ot V15.3 HX OF IRRADIATION 11/26/2018 ZAINAB FORREST N Ot V58.69 OTH MED,LT,CURRENT USE 11/26/2018 LONZAINAB KHOURY N Ot 233.0 CA IN SITU BREAST 11/26/2018 ZAINAB FORREST N Ot V15.3 HX OF IRRADIATION 11/26/2018 LONZAINAB KHOURY N Ot V58.69 OTH MED,LT,CURRENT USE 11/26/2018 LONZAINAB KHOURY N Ot 233.0 CA IN SITU BREAST 11/26/2018 ZAINAB FORREST N Ot V15.3 HX OF IRRADIATION 11/26/2018 ZAINAB FORREST N Ot V58.69 OTH MED,LT,CURRENT USE 11/26/2018 ZAINAB FORREST N Ot V88.01 ACQUIRED ABSENCE OF BOTH CERVIX AND UTER 11/26/2018 ZAINAB FORREST N Ot D05.92 UNSPECIFIED TYPE OF CARCINOMA IN SITU OF 11/26/2018 ZAINAB FORREST N Ot Z79.810 LNG TRM (CRNT) USE OF SLCTV ESTROG CASER UP 11/26/2018 ZAINAB FORREST N Ot Z90.710 ACQUIRED ABSENCE OF BOTH CERVIX AND UTER 11/26/2018 ZAINAB FORREST N Ot Z92.3 PERSONAL HISTORY OF IRRADIATION 11/26/2018 ZAINAB FORREST N Ot D05.92 UNSPECIFIED TYPE OF CARCINOMA IN SITU OF 11/26/2018 ZAINAB FORREST N Ot Z79.810 LNG TRM (CRNT) USE OF SLCTV ESTROG CASER UP 11/26/2018 ZAINAB FORREST N Ot Z90.710 ACQUIRED ABSENCE OF BOTH CERVIX AND UTER 11/26/2018 ZAINAB FORREST N Ot Z92.3 PERSONAL HISTORY OF IRRADIATION 11/26/2018 ZAINAB FORREST N Ot D05.12 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 11/26/2018 ZAINAB FORREST N Ot E03.9 HYPOTHYROIDISM, UNSPECIFIED 11/26/2018 ZAINAB FORREST N Ot E11.9 TYPE 2 DIABETES MELLITUS WITHOUT COMPLIC 11/26/2018 ZAINAB FORREST Tenzin Ot E78.00 PURE HYPERCHOLESTEROLEMIA, UNSPECIFIED 11/26/2018 ZAINAB FORREST Tenzin Ot F32.9 MAJOR DEPRESSIVE DISORDER, SINGLE EPISOD 11/26/2018 ZAINAB FORREST Tenzin Ot F41.9 ANXIETY DISORDER, UNSPECIFIED 11/26/2018 ZAINAB FORREST Tenzin Ot G47.33 OBSTRUCTIVE SLEEP APNEA (ADULT) (PEDIATR 11/26/2018 LON MARIIADALE Tenzin Ot I10 ESSENTIAL (PRIMARY) HYPERTENSION 11/26/2018 ZAINAB FORREST Tenzin Ot K21.9 GASTRO-ESOPHAGEAL REFLUX DISEASE WITHOUT 11/26/2018 ZAINAB FORREST Tenzin Ot N39.3 STRESS INCONTINENCE (FEMALE) (MALE) 11/26/2018 MARIIA FORRESTDALE Dave Ot Z79.899 OTHER MANAGER ADVERTISING (CURRENT) DRUG THERAPY 11/26/2018 ZAINAB FORREST Tenzin Ot Z90.710 ACQUIRED ABSENCE OF BOTH CERVIX AND UTER 11/26/2018 ZAINAB FORREST Tenzin Ot Z92.3 PERSONAL HISTORY OF IRRADIATION 11/26/2018 NITISH VARELA MD Ot M17.11 UNILATERAL PRIMARY OSTEOARTHRITIS, RIGHT 11/26/2018 NITISH VARELA MD Ot M25.51 1 PAIN IN RIGHT SHOULDER 11/26/2018 SEPIDEH BURTON Ot M19.011 PRIMARY OSTEOARTHRITIS, RIGHT SHOULDER 11/26/2018 SEPIDEH BURTON Ot S40.011A CONTUSION OF RIGHT SHOULDER, INITIAL ENC 11/26/2018 ZULEYKA DPM, MORGAN Q Ot R52 PAIN, UNSPECIFIED 11/26/2018 ZULEYKA DPM, MORGAN Q Ot R60. 9 EDEMA, UNSPECIFIED 12/04/2018 QING KRAUSEP Ot M19.03 1 PRIMARY OSTEOARTHRITIS, RIGHT WRIST 12/04/2018 QING KRAUSEP Ot M19.03 1 PRIMARY OSTEOARTHRITIS, RIGHT WRIST 04/30/2019 ZAINAB FORREST Ot 233.0 CA IN SITU BREAST 04/30/2019 ZAINAB FORREST Ot V15.3 HX OF IRRADIATION 04/30/2019 LONZAINAB Ot V58.69 OTH MED,LT,CURRENT USE 04/30/2019 ZAINAB FORREST Ot 233.0 CA IN SITU BREAST 04/30/2019 ZAINAB FORREST Ot V15.3 HX OF IRRADIATION 04/30/2019 ZAINAB FORREST Ot V58.69 OTH MED,LT,CURRENT USE 04/30/2019 ZAINAB FORREST Tenzin Ot V88.01 ACQUIRED ABSENCE OF BOTH CERVIX AND UTER 04/30/2019 ZAINAB FORREST N Ot D05.92 UNSPECIFIED TYPE OF CARCINOMA IN SITU OF 04/30/2019 ZAINAB FORREST Tenzin Ot Z79.810 LNG TRM (CRNT) USE OF SLCTV ESTROG CASER UP 04/30/2019 ZAINAB FORREST N Ot Z90.710 ACQUIRED ABSENCE OF BOTH CERVIX AND UTER 04/30/2019 ZAINAB FORREST N Ot Z92.3 PERSONAL HISTORY OF IRRADIATION 04/30/2019 ZAINAB FORREST Tenzin Ot D05.92 UNSPECIFIED TYPE OF CARCINOMA IN SITU OF 04/30/2019 ZAINAB FORREST Tenzin Ot Z79.810 LNG TRM (CRNT) USE OF SLCTV ESTROG CASER UP 04/30/2019 ZAINAB FORREST Tenzin Ot Z90.710 ACQUIRED ABSENCE OF BOTH CERVIX AND UTER 04/30/2019 ZAINAB FORREST Tenzin Ot Z92.3 PERSONAL HISTORY OF IRRADIATION 04/30/2019 ZAINAB FORREST Tenzin Ot D05.12 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 04/30/2019 ZAINAB FORREST Tenzin Ot E03.9 HYPOTHYROIDISM, UNSPECIFIED 04/30/2019 ZAINAB FORREST N Ot E11.9 TYPE 2 DIABETES MELLITUS WITHOUT COMPLIC 04/30/2019 ZAINAB FORREST N Ot E78.00 PURE HYPERCHOLESTEROLEMIA, UNSPECIFIED 04/30/2019 LONMARIIADALE N Ot F32.9 MAJOR DEPRESSIVE DISORDER, SINGLE EPISOD 04/30/2019 ZAINAB FORREST N Ot F41.9 ANXIETY DISORDER, UNSPECIFIED 04/30/2019 ZAINAB FORREST N Ot G47.33 OBSTRUCTIVE SLEEP APNEA (ADULT) (PEDIATR 04/30/2019 LONMARIIADALE N Ot I10 ESSENTIAL (PRIMARY) HYPERTENSION 04/30/2019 LONZAINAB N Ot K21.9 GASTRO-ESOPHAGEAL REFLUX DISEASE WITHOUT 04/30/2019 LONZAINAB KHOURY N Ot N39.3 STRESS INCONTINENCE (FEMALE) (MALE) 04/30/2019 LON ZAINAB Tenzin Ot Z79.899 OTHER MANAGER ADVERTISING (CURRENT) DRUG THERAPY 04/30/2019 ZAINAB FORREST Ot Z90.710 ACQUIRED ABSENCE OF BOTH CERVIX AND UTER 04/30/2019 ZAINAB FORREST Ot Z92.3 PERSONAL HISTORY OF IRRADIATION 04/30/2019 SELF NITISH HARRIS Ot M17.11 UNILATERAL PRIMARY OSTEOARTHRITIS, RIGHT 04/30/2019 SELF NITISH HARRIS Ot M25.51 1 PAIN IN RIGHT SHOULDER 04/30/2019 SEPIDEH BURTON Ot M19.011 PRIMARY OSTEOARTHRITIS, RIGHT SHOULDER 04/30/2019 SEPIDEH BURTON Ot S40.011A CONTUSION OF RIGHT SHOULDER, INITIAL ENC 04/30/2019 ZULEYKA DPM, MORGAN Q Ot R52 PAIN, UNSPECIFIED 04/30/2019 ZULEYKA DPM, MORGAN Q Ot R60. 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 04/30/2019 NITISH VARELA MD Ot Z98.89 0 OTHER SPECIFIED POSTPROCEDURAL STATES 04/30/2019 ZAINAB FORREST Ot 233.0 CA IN SITU BREAST 04/30/2019 ZAINAB FORREST Ot V15.3 HX OF IRRADIATION 04/30/2019 ZAINAB FORREST Ot V58.69 OTH MED,LT,CURRENT USE 04/30/2019 ZAINAB FORREST Ot 233.0 CA IN SITU BREAST 04/30/2019 ZAINAB FORREST Ot V15.3 HX OF IRRADIATION 04/30/2019 ZAINAB FORREST Ot V58.69 OTH MED,LT,CURRENT USE 04/30/2019 ZAINAB FORREST Ot V88.01 ACQUIRED ABSENCE OF BOTH CERVIX AND UTER 04/30/2019 ZAINAB FORREST Ot D05.92 UNSPECIFIED TYPE OF CARCINOMA IN SITU OF 04/30/2019 ZAINAB FORREST Ot Z79.810 LNG TRM (CRNT) USE OF SLCTV ESTROG CASER UP 04/30/2019 ZAINAB FORREST N Ot Z90.710 ACQUIRED ABSENCE OF BOTH CERVIX AND UTER 04/30/2019 ZAINAB FORREST N Ot Z92.3 PERSONAL HISTORY OF IRRADIATION 04/30/2019 ZAINAB FORREST N Ot D05.92 UNSPECIFIED TYPE OF CARCINOMA IN SITU OF 04/30/2019 ZAINAB FORREST N Ot Z79.810 LNG TRM (CRNT) USE OF SLCTV ESTROG CASER UP 04/30/2019 ZAINAB FORREST N Ot Z90.710 ACQUIRED ABSENCE OF BOTH CERVIX AND UTER 04/30/2019 ZAINAB FORREST N Ot Z92.3 PERSONAL HISTORY OF IRRADIATION 04/30/2019 ZAINAB FORREST N Ot D05.12 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 04/30/2019 ZAINAB FORREST N Ot E03.9 HYPOTHYROIDISM, UNSPECIFIED 04/30/2019 LON, MARIIADALE N Ot E11.9 TYPE 2 DIABETES MELLITUS WITHOUT COMPLIC 04/30/2019 LON, MARIIADALE N Ot E78.00 PURE HYPERCHOLESTEROLEMIA, UNSPECIFIED 04/30/2019 LONMARIIADALE N Ot F32.9 MAJOR DEPRESSIVE DISORDER, SINGLE EPISOD 04/30/2019 LON MARIIADALE N Ot F41.9 ANXIETY DISORDER, UNSPECIFIED 04/30/2019 ZAINAB FORREST N Ot G47.33 OBSTRUCTIVE SLEEP APNEA (ADULT) (PEDIATR 04/30/2019 LON, MARIIADALE N Ot I10 ESSENTIAL (PRIMARY) HYPERTENSION 04/30/2019 LONMARIIADALE N Ot K21.9 GASTRO-ESOPHAGEAL REFLUX DISEASE WITHOUT 04/30/2019 LONZAINAB N Ot N39.3 STRESS INCONTINENCE (FEMALE) (MALE) 04/30/2019 ZAINAB FORREST N Ot Z79.899 OTHER HALFWAY (CURRENT) DRUG THERAPY 04/30/2019 ZAINAB FORREST N Ot Z90.710 ACQUIRED ABSENCE OF BOTH CERVIX AND UTER 04/30/2019 ZAINAB FORREST N Ot Z92.3 PERSONAL HISTORY OF IRRADIATION 04/30/2019 SELF NITISH HARRIS Ot M17.11 UNILATERAL PRIMARY OSTEOARTHRITIS, RIGHT 04/30/2019 SELF NITISH HARRIS Ot M25.51 1 PAIN IN RIGHT SHOULDER 04/30/2019 SEPIDEH BURTON Ot M19.011 PRIMARY OSTEOARTHRITIS, RIGHT SHOULDER 04/30/2019 SEPIDEH BURTON TRANSPORTATION COORDINATOR Ot S40.011A CONTUSION OF RIGHT SHOULDER, INITIAL ENC 04/30/2019 ZULEYKA DPM, MORGAN Q Ot R52 PAIN, UNSPECIFIED 04/30/2019 ZULEYKA DPM, MORGAN Q Ot R60. 9 EDEMA, UNSPECIFIED 04/30/2019 JYOTI CARRERO MARINE PLUMBER Ot R06.00 DYSPNEA, UNSPECIFIED 04/30/2019 QING KRAUSE Ot M19.03 1 PRIMARY OSTEOARTHRITIS, RIGHT WRIST 04/30/2019 SELF NITISH HARRIS Ot M25.55 1 PAIN IN RIGHT HIP 04/30/2019 SELF NITISH HARRIS Ot M25.55 2 PAIN IN LEFT HIP 04/30/2019 SELF NITISH HARRIS Ot M47.81 6 SPONDYLOSIS W/O MYELOPATHY OR RADICULOPA 04/30/2019 SELF NITISH HARRIS Ot Z98.89 0 OTHER SPECIFIED POSTPROCEDURAL STATES 04/30/2019 ZAINAB FORREST Ot 233.0 CA IN SITU BREAST 04/30/2019 ZAINAB FORREST Ot V15.3 HX OF IRRADIATION 04/30/2019 ZAINAB FORREST Ot V58.69 OTH MED,LT,CURRENT USE 04/30/2019 ZAINAB FORREST Ot 233.0 CA IN SITU BREAST 04/30/2019 ZAINAB FORREST Ot V15.3 HX OF IRRADIATION 04/30/2019 ZAINAB FORREST Ot V58.69 OTH MED,LT,CURRENT USE 04/30/2019 ZAINAB FORREST Ot V88.01 ACQUIRED ABSENCE OF BOTH CERVIX AND UTER 04/30/2019 ZAINAB FORREST Ot D05.92 UNSPECIFIED TYPE OF CARCINOMA IN SITU OF 04/30/2019 ZAINAB FORREST Ot Z79.810 LNG TRM (CRNT) USE OF SLCTV ESTROG CASER UP 04/30/2019 ZAINAB FORREST Ot Z90.710 ACQUIRED ABSENCE OF BOTH CERVIX AND UTER 04/30/2019 ZAINAB FORREST Ot Z92.3 PERSONAL HISTORY OF IRRADIATION 04/30/2019 ZAINAB FORREST Ot D05.92 UNSPECIFIED TYPE OF CARCINOMA IN SITU OF 04/30/2019 ZAINAB FORREST Ot Z79.810 LNG TRM (CRNT) USE OF SLCTV ESTROG CASER UP 04/30/2019 ZAINAB FORREST Ot Z90.710 ACQUIRED ABSENCE OF BOTH CERVIX AND UTER 04/30/2019 ZAINAB FORREST Ot Z92.3 PERSONAL HISTORY OF IRRADIATION 04/30/2019 ZAINAB FORREST Ot D05.12 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 04/30/2019 ZAINAB FORREST Tenzin Ot E03.9 HYPOTHYROIDISM, UNSPECIFIED 04/30/2019 ZAINAB FORREST Tenzin Ot E11.9 TYPE 2 DIABETES MELLITUS WITHOUT COMPLIC 04/30/2019 ZAINAB FORREST N Ot E78.00 PURE HYPERCHOLESTEROLEMIA, UNSPECIFIED 04/30/2019 ZAINAB FORREST N Ot F32.9 MAJOR DEPRESSIVE DISORDER, SINGLE EPISOD 04/30/2019 ZAINAB FORREST Tenzin Ot F41.9 ANXIETY DISORDER, UNSPECIFIED 04/30/2019 ZAINAB FORREST N Ot G47.33 OBSTRUCTIVE SLEEP APNEA (ADULT) (PEDIATR 04/30/2019 ZAINAB FORREST Tenzin Ot I10 ESSENTIAL (PRIMARY) HYPERTENSION 04/30/2019 ZAINAB FORREST Tenzin Ot K21.9 GASTRO-ESOPHAGEAL REFLUX DISEASE WITHOUT 04/30/2019 ZAINAB FORREST Ot N39.3 STRESS INCONTINENCE (FEMALE) (MALE) 04/30/2019 ZAINAB FORREST Ot Z79.899 OTHER MANAGER ADVERTISING (CURRENT) DRUG THERAPY 04/30/2019 ZAINAB FORREST Ot Z90.710 ACQUIRED ABSENCE OF BOTH CERVIX AND UTER 04/30/2019 ZAINAB FORREST Ot Z92.3 PERSONAL HISTORY OF IRRADIATION 04/30/2019 SELF NITISH HARRIS Ot M17.11 UNILATERAL PRIMARY OSTEOARTHRITIS, RIGHT 04/30/2019 SELF NITISH HARRIS Ot M25.51 1 PAIN IN RIGHT SHOULDER 04/30/2019 SEPIDEH BURTON Ot M19.011 PRIMARY OSTEOARTHRITIS, RIGHT SHOULDER 04/30/2019 SEPIDEH BURTON Ot S40.011A CONTUSION OF RIGHT SHOULDER, INITIAL ENC 04/30/2019 ZULEYKA DPM, MORGAN Q Ot R52 PAIN, UNSPECIFIED 04/30/2019 ZULEYKA DPM, MORGAN Q Ot R60. 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 04/30/2019 SELF NITISH HARRIS Ot Z98.89 0 OTHER SPECIFIED POSTPROCEDURAL STATES Procedures Code Description [place] [id number] MARIALUISA V PSYTX 45/50 MIN 02/15/2012 14169 PSYT X PT&/FAMILY 45 MINUTES 07/09/2012 70421 PSYT X PT&/FAMILY 45 MINUTES 10/29/2012 79218 PSYC H PHARM MGMT 11/07/2012 58067 PSYT X PT&/FAMILY 45 MINUTES 12/04/2012 20088 PSYT X PT&/FAMILY 45 MINUTES 06/10/2013 29389 PSYT X PT&/FAMILY 45 MINUTES 07/01/2013 43114 PSYT X PT&/FAMILY 45 MINUTES 07/28/2013 88058 PSYT X PT&/FAMILY 45 MINUTES 10/07/2013 12603 PSYT X PT&/FAMILY 45 MINUTES 11/10/2013 67585 PSYT X PT&/FAMILY 45 MINUTES 12/03/2013 58408 PSYT X PT&/FAMILY 45 MINUTES 12/30/2013 67603 PSYT X PT&/FAMILY 45 MINUTES 05/26/2014 Results Test Result Range CULTURE, ANAEROBIC AND AEROBIC - 9 14:54 CULTURE, ANAEROBIC BACTERIA W/GRAM STAIN SEE NOTE NRG CULTURE, AEROBIC BACTERIA SEE NOTE NRG CMP - 05/26/18 15:23 GLUCOSE 125 mg/dL 65-99 UREA NITROGEN (BUN) 16 mg/dL 7-25 CREATININE 0.84 mg/dL 0.50-0.99 eGFR NON-AFR. [place] 75 mL/min/1.73m2 > OR = 60 eGFR 87 mL/min/1.73m2 > OR = 60 BUN/CREATININE RATIO NOT APPLICABLE (calc) 6-22 SODIUM 139 mmol/L 135-146 POTASSIUM 5.3 mmol/L 3.5-5.3 CHLORIDE 98 mmol/L 98-110 CARBON DIOXIDE 34 mmol/L 20-32 CALCIUM 9.6 mg/dL 8.6-10.4 PROTEIN, TOTAL 7.2 g/dL 6.1-8.1 ALBUMIN 3.9 g/dL 3.6-5.1 GLOBULIN 3.3 g/dL (calc) 1.9-3.7 ALBUMIN/GLOBULIN RATIO 1.2 (calc) 1.0-2. 5 BILIRUBIN, TOTAL 0.4 mg/dL 0.2-1.2 ALKALINE PHOSPHATASE 112 U/L 33-130 AST 13 U/L 10-35 ALT 10 U/L 08-16 BNP - 05/26/18 15:26 B TYPE NATRIURETIC PEPTIDE (BNP) 8 pg/mL <100 TSH w/ FREE T4 - 06/05/18 15:01 TSH 2.78 mIU/L 0.40-4.50 T4, FREE 1.5 ng/dL 0.8-1.8 CMP - 06/05/18 15:01 GLUCOSE 116 mg/dL 65-99 UREA NITROGEN (BUN) 24 mg/dL 7-25 CREATININE 0.90 mg/dL 0.50-0.99 eGFR NON-AFR. [place] 69 mL/min/1.73m2 > OR = 60 eGFR 80 mL/min/1.73m2 > OR = 60 BUN/CREATININE RATIO NOT APPLICABLE (calc) 6-22 SODIUM 140 mmol/L 135-146 POTASSIUM 5.1 mmol/L 3.5-5.3 CHLORIDE 99 mmol/L 98-110 CARBON DIOXIDE 29 mmol/L 20-32 CALCIUM 10.1 mg/dL 8.6-10.4 PROTEIN, TOTAL 7.5 g/dL 6.1-8.1 ALBUMIN 4.3 g/dL 3.6-5.1 GLOBULIN 3.2 g/dL (calc) 1.9-3.7 ALBUMIN/GLOBULIN RATIO 1.3 (calc) 1.0-2. 5 BILIRUBIN, TOTAL 0.4 mg/dL 0.2-1.2 ALKALINE PHOSPHATASE 114 U/L 33-130 AST 14 U/L 10-35 ALT 11 U/L 08-16 A1C - 06/05/18 15:01 HEMOGLOBIN A1c 7.9 % of total Hgb <5.7 Comprehensive metabolic panel - 07/19/18 22:30 Serum or plasma sodium measurement (moles/volume) 139 mmol/L 135-145 Serum or plasma potassium measurement (moles/volume) 4.4 mmol/L 3.6-5.0 Serum or plasma chloride measurement (moles/volume) 96 mmol/L 98-107 Carbon dioxide 23 mmol/L 21-32 Serum or plasma anion gap determination (moles/volume) 20 mmol/L 5-14 Serum or plasma urea nitrogen measurement (mass/volume ) 33 mg/dL 7-18 Serum or plasma creatinine measurement (mass/volume) 1.15 mg/dL 0.60-1.30 Serum or plasma urea nitrogen/creatinine mass ratio 29 NRG Serum or plasma creatinine measurement w ith calculation of estimated glomerular filtration rate 48 NRG Serum or plasma glucose measurement (mass/volume) 154 mg/dL 70-105 Serum or plasma calcium measurement (mass/volume) 9.6 mg/dL 8.5-10.1 Serum or plasma total bilirubin measurement (mass/volu me) 0.3 mg/dL 0.1-1.0 Serum or plasma alkaline phosphatase ricarda surement (enzymatic activity/volume) 116 U/L 40-136 Serum or plasma aspartate aminotransfera se measurement (enzymatic activity/volume) 17 U/L 5-34 Serum or plasma alanine aminotransferase measurement (enzymatic activity/volume) 12 U/L 0-55 Serum or plasma protein measurement (mass/volume) 7.5 g/dL 6.4-8.2 Serum or plasma albumin measurement (mass/volume) 4.1 g/dL 3.2-4.5 CALCIUM CORRECTED 9.5 mg/dL 8.5-10.1 Lipase - 07/19/18 22:30 Lipase 21 U/L 8-78 Complete blood count (CBC) with automate d white blood cell (WBC) differential - 07/19/18 22:30 Blood leukocytes automated count (number/volume) 9.2 10*3/uL 4.3-11.0 Blood erythrocytes automated count (number/volume) 3.95 10*6/uL 4.35-5.85 Venous blood hemoglobin measurement (mass/volume) 11.8 g/dL 11.5-16.0 Blood hematocrit (volume fraction) 38 % 35-52 Automated erythrocyte mean corpuscular volume 96 [ foz_us] 80-99 Automated erythrocyte mean corpuscular h emoglobin (mass per erythrocyte) 30 pg 25-34 Automated erythrocyte mean corpuscular h emoglobin concentration measurement (mass/volume) 31 g/dL 32-36 Automated erythrocyte distribution width ratio 13. 9 % 10.0- 14.5 Automated blood platelet count (count/volume) 227 10*3/uL 130-400 Automated blood platelet mean volume measurement 9.1 [foz_us] 7.4-10.4 Automated blood neutrophils/100 leukocytes 58 % 42-75 Automated blood lymphocytes/100 leukocytes 32 % 12-44 Blood monocytes/100 leukocytes 7 % 0-12 Automated blood eosinophils/100 leukocytes 3 % 0-10 Automated blood basophils/100 leukocytes 0 % 0-10 Blood neutrophils automated count (number/volume) 5.3 10*3 1.8-7.8 Blood lymphocytes automated count (number/volume) 2.9 10*3 1.0-4.0 Blood monocytes automated count (number/volume) 0. 7 10*3 0.0-1.0 Automated eosinophil count 0.2 10*3/uL 0 .0-0.3 Automated blood basophil count (count/volume) 0.0 10*3/uL 0.0-0.1 Complete urinalysis with reflex to cultu re - 07/19/18 23:00 Urine color determination YELLOW NRG Urine clarity determination CLEAR NR G Urine pH measurement by test strip 5.5 5-9 Specific gravity of urine by test strip 1.020 1.016-1.022 Urine protein assay by test strip, semi-quantitative NEGATIVE NEGATIVE Urine glucose detection by automated test strip NE GATIVE NEGATIVE Erythrocytes detection in urine sediment by light micr oscopy NEGATIVE NEGATIVE Urine ketones detection by automated test strip NE GATIVE NEGATIVE Urine nitrite detection by test strip NEGATIVE NEGATIVE Urine total bilirubin detection by test strip NEGA TIVE NEGATIVE Urine urobilinogen measurement by automated test strip (mass/volume) 1.0 mg/dL NORMAL Urine leukocyte esterase detection by dipstick NEG ATIVE NEGATIVE Automated urine sediment erythrocyte cou nt by microscopy (number/high power field) NONE NRG Automated urine sediment leukocyte count by microscopy (number/high power field) [HPF] NRG Bacteria detection in urine sediment by light microsco py MODERATE NRG Squamous epithelial cells detection in u rine sediment by light microscopy 2-5 NRG Crystals detection in urine sediment by light microsco py NONE NRG Casts detection in urine sediment by light microscopy PRESENT NRG Mucus detection in urine sediment by light microscopy MODERATE NRG Complete urinalysis with reflex to culture YES NRG Hyaline casts detection in urine sediment by light krish roscopy 10-25 NRG Bacterial urine culture - 07/19/18 23:00 Bacterial urine culture NG NRG Complete blood count (CBC) with automate d white blood cell (WBC) differential - 08/06/18 16:10 Blood leukocytes automated count (number/volume) 9.5 10*3/uL 4.3-11.0 Blood erythrocytes automated count (number/volume) 4.07 10*6/uL 4.35-5.85 Venous blood hemoglobin measurement (mass/volume) 12.2 g/dL 11.5-16.0 Blood hematocrit (volume fraction) 38 % 35-52 Automated erythrocyte mean corpuscular volume 93 [ foz_us] 80-99 Automated erythrocyte mean corpuscular h emoglobin (mass per erythrocyte) 30 pg 25-34 Automated erythrocyte mean corpuscular h emoglobin concentration measurement (mass/volume) 32 g/dL 32-36 Automated erythrocyte distribution width ratio 14. 0 % 10.0- 14.5 Automated blood platelet count (count/volume) 283 10*3/uL 130-400 Automated blood platelet mean volume measurement 8.8 [foz_us] 7.4-10.4 Automated blood neutrophils/100 leukocytes 67 % 42-75 Automated blood lymphocytes/100 leukocytes 25 % 12-44 Blood monocytes/100 leukocytes 6 % 0-12 Automated blood eosinophils/100 leukocytes 3 % 0-10 Automated blood basophils/100 leukocytes 0 % 0-10 Blood neutrophils automated count (number/volume) 6.3 10*3 1.8-7.8 Blood lymphocytes automated count (number/volume) 2.3 10*3 1.0-4.0 Blood monocytes automated count (number/volume) 0. 6 10*3 0.0-1.0 Automated eosinophil count 0.3 10*3/uL 0 .0-0.3 Automated blood basophil count (count/volume) 0.0 10*3/uL 0.0-0.1 Serum or plasma uric acid measurement (m ass/volume) - 08/06/18 16:10 Serum or plasma uric acid measurement (mass/volume) 10.4 mg/dL 2.6-7.2 Serum or plasma C reactive protein measu rement (mass/volume) - 08/06/18 16:10 Serum or plasma C reactive protein measurement (mass/v olume) 1.74 mg/dL 0.00-0.50 Serum or plasma rheumatoid factor measur ement (units/volume) - 08/06/18 16:10 Serum or plasma rheumatoid factor measurement (units/v olume) NEGATIVE [id number] - 08/06/18 16:10 Screening antinuclear antibody (ZEENAT) assay by enzyme i mmunoassay <1:80 <1:80 Tick identification panel - 08/06/18 16: 10 Serum Ehrlichia chaffeensis IgG antibody detection <1:16 <1:16 Serum Ehrlichia chaffeensis IgM antibody detection <1:10 <1:10 Serum Rickettsia rickettsii IgG antibody assay (units/ volume) < <1:16 [place] spotted fever panel < <1:10 Francisella tularensis antibody assay <1:20 NRG LYME AB G M 0.06 % 0.00-0.89 Interpretation of Lyme disease antibody assay Nega tive Negative LIPID PANEL - 08/29/18 08:30 CHOLESTEROL, TOTAL 202 mg/dL <200 HDL CHOLESTEROL 40 mg/dL >50 TRIGLYCERIDES 245 mg/dL <150 LDL-CHOLESTEROL 122 mg/dL (calc) NRG CHOL/HDLC RATIO 5.1 (calc) <5.0 NON HDL CHOLESTEROL 162 mg/dL (calc) <13 0 CMP - 08/29/18 08:30 GLUCOSE 197 mg/dL 65-99 UREA NITROGEN (BUN) 32 mg/dL 7-25 CREATININE 1.01 mg/dL 0.50-0.99 eGFR NON-AFR. [place] 60 mL/min/1.73m2 > OR = 60 eGFR 70 mL/min/1.73m2 > OR = 60 BUN/CREATININE RATIO 32 (calc) 6-22 SODIUM 138 mmol/L 135-146 POTASSIUM 4.8 mmol/L 3.5-5.3 CHLORIDE 96 mmol/L 98-110 CARBON DIOXIDE 35 mmol/L 20-32 CALCIUM 9.6 mg/dL 8.6-10.4 PROTEIN, TOTAL 7.2 g/dL 6.1-8.1 ALBUMIN 4.1 g/dL 3.6-5.1 GLOBULIN 3.1 g/dL (calc) 1.9-3.7 ALBUMIN/GLOBULIN RATIO 1.3 (calc) 1.0-2. 5 BILIRUBIN, TOTAL 0.4 mg/dL 0.2-1.2 ALKALINE PHOSPHATASE 107 U/L 33-130 AST 12 U/L 10-35 ALT 13 U/L 6-29 A1C - 08/29/18 08:30 HEMOGLOBIN A1c 7.8 % of total Hgb <5.7 PANEL (PROFILE 1) - 09/02/18 16 :01 Prescribed Drug 1 Gabapentin NRG Creatinine 38.6 mg/dL > or = 20.0 pH 5.44 4.5 - 9.0 Oxidant NEGATIVE mcg/mL <200 Amphetamines NEGATIVE ng/mL <500 medMATCH Amphetamines CONSISTENT NRG Benzodiazepines POSITIVE ng/mL <100 Marijuana Metabolite NEGATIVE ng/mL <20 medMATCH Marijuana Metab CONSISTENT NRG Cocaine Metabolite NEGATIVE ng/mL <150 medMATCH Cocaine Metab CONSISTENT NRG Opiates POSITIVE ng/mL <100 Oxycodone NEGATIVE ng/mL <100 medMATCH Oxycodone CONSISTENT NRG COMMENT NRG Alphahydroxyalprazolam NEGATIVE ng/mL <25 medMATCH aOH alprazolam CONSISTENT NRG Alphahydroxymidazolam NEGATIVE ng/mL < 50 medMATCH aOH midazolam CONSISTENT NRG Alphahydroxytriazolam NEGATIVE ng/mL < 50 medMATCH aOH triazolam CONSISTENT NRG Aminoclonazepam NEGATIVE ng/mL <25 medMATCH Aminoclonazepam CONSISTENT NRG Hydroxyethylflurazepam NEGATIVE ng/mL <50 medMATCH OH,Et flurazepam CONSISTENT NR G Lorazepam 783 ng/mL <50 medMATCH Lorazepam CONSISTENT NRG Nordiazepam NEGATIVE ng/mL <50 medMATCH Nordiazepam CONSISTENT NRG Oxazepam NEGATIVE ng/mL <50 medMATCH Oxazepam CONSISTENT NRG Temazepam NEGATIVE ng/mL <50 medMATCH Temazepam CONSISTENT NRG Codeine NEGATIVE ng/mL <50 medMATCH Codeine CONSISTENT NRG Hydrocodone 1443 ng/mL <50 medMATCH Hydrocodone CONSISTENT NRG Hydromorphone 171 ng/mL <50 medMATCH Hydromorphone CONSISTENT NRG Morphine NEGATIVE ng/mL <50 medMATCH Morphine CONSISTENT NRG Norhydrocodone 1763 ng/mL <50 medMATCH Norhydrocodone CONSISTENT NRG Prescribed Drug 2 Hydrocodone NRG Prescribed Drug 3 Lorazepam NRG Barbiturates NEGATIVE ng/mL <300 medMATCH Barbiturates CONSISTENT NRG Methadone Metabolite NEGATIVE ng/mL <100 medMATCH Methadone Metab CONSISTENT NRG Phencyclidine NEGATIVE ng/mL <25 medMATCH Phencyclidine CONSISTENT NRG Complete blood count (CBC) with automate d white blood cell (WBC) differential - 10/03/18 11:25 Blood leukocytes automated count (number/volume) 10.5 10*3/uL 4.3-11.0 Blood erythrocytes automated count (number/volume) 4.09 10*6/uL 4.35-5.85 Venous blood hemoglobin measurement (mass/volume) 12.3 g/dL 11.5-16.0 Blood hematocrit (volume fraction) 39 % 35-52 Automated erythrocyte mean corpuscular volume 94 [ foz_us] 80-99 Automated erythrocyte mean corpuscular h emoglobin (mass per erythrocyte) 30 pg 25-34 Automated erythrocyte mean corpuscular h emoglobin concentration measurement (mass/volume) 32 g/dL 32-36 Automated erythrocyte distribution width ratio 12. 9 % 10.0- 14.5 Automated blood platelet count (count/volume) 287 10*3/uL 130-400 Automated blood platelet mean volume measurement 9.4 [foz_us] 7.4-10.4 Automated blood neutrophils/100 leukocytes 66 % 42-75 Automated blood lymphocytes/100 leukocytes 24 % 12-44 Blood monocytes/100 leukocytes 7 % 0-12 Automated blood eosinophils/100 leukocytes 2 % 0-10 Automated blood basophils/100 leukocytes 1 % 0-10 Blood neutrophils automated count (number/volume) 6.9 10*3 1.8-7.8 Blood lymphocytes automated count (number/volume) 2.5 10*3 1.0-4.0 Blood monocytes automated count (number/volume) 0. 7 10*3 0.0-1.0 Automated eosinophil count 0.2 10*3/uL 0 .0-0.3 Automated blood basophil count (count/volume) 0.1 10*3/uL 0.0-0.1 PT panel in platelet poor plasma by coag ulation assay - 10/03/18 11:25 Prothrombin time (PT) in platelet poor plasma by coagu lation assay 14.0 s 12.2-14.7 INR in platelet poor plasma or blood by coagulation as say 1.0 0.8-1.4 Activated partial thromboplastin time (a PTT) in platelet poor plasma bycoagulation assay - 10/03/18 11:25 Activated partial thromboplastin time (a PTT) in platelet poor plasma bycoagulation assay 26 s 24-35 Comprehensive metabolic panel - 10/03/18 11:25 Serum or plasma sodium measurement (moles/volume) 137 mmol/L 135-145 Serum or plasma potassium measurement (moles/volume) 4.6 mmol/L 3.6-5.0 Serum or plasma chloride measurement (moles/volume) 95 mmol/L 98-107 Carbon dioxide 28 mmol/L 21-32 Serum or plasma anion gap determination (moles/volume) 14 mmol/L 5-14 Serum or plasma urea nitrogen measurement (mass/volume ) 36 mg/dL 7-18 Serum or plasma creatinine measurement (mass/volume) 1.44 mg/dL 0.60-1.30 Serum or plasma urea nitrogen/creatinine mass ratio 25 NRG Serum or plasma creatinine measurement w ith calculation of estimated glomerular filtration rate 37 NRG Serum or plasma glucose measurement (mass/volume) 174 mg/dL 70-105 Serum or plasma calcium measurement (mass/volume) 9.2 mg/dL 8.5-10.1 Serum or plasma total bilirubin measurement (mass/volu me) 0.2 mg/dL 0.1-1.0 Serum or plasma alkaline phosphatase ricarda surement (enzymatic activity/volume) 111 U/L 40-136 Serum or plasma aspartate aminotransfera se measurement (enzymatic activity/volume) 12 U/L 5-34 Serum or plasma alanine aminotransferase measurement (enzymatic activity/volume) 9 U/L 0-55 Serum or plasma protein measurement (mass/volume) 7.4 g/dL 6.4-8.2 Serum or plasma albumin measurement (mass/volume) 4.0 g/dL 3.2-4.5 CALCIUM CORRECTED 9.2 mg/dL 8.5-10.1 CMP - 02/19/19 15:17 GLUCOSE 210 mg/dL 65-99 UREA NITROGEN (BUN) 18 mg/dL 7-25 CREATININE 1.08 mg/dL 0.50-0.99 eGFR NON-AFR. [place] 55 mL/min/1.73m2 > OR = 60 eGFR 64 mL/min/1.73m2 > OR = 60 BUN/CREATININE RATIO 17 (calc) 6-22 SODIUM 140 mmol/L 135-146 POTASSIUM 4.5 mmol/L 3.5-5.3 CHLORIDE 99 mmol/L 98-110 CARBON DIOXIDE 29 mmol/L 20-32 CALCIUM 9.7 mg/dL 8.6-10.4 PROTEIN, TOTAL 7.7 g/dL 6.1-8.1 ALBUMIN 4.3 g/dL 3.6-5.1 GLOBULIN 3.4 g/dL (calc) 1.9-3.7 ALBUMIN/GLOBULIN RATIO 1.3 (calc) 1.0-2. 5 BILIRUBIN, TOTAL 0.3 mg/dL 0.2-1.2 ALKALINE PHOSPHATASE 141 U/L 33-130 AST 11 U/L 10-35 ALT 10 U/L 6-29 TSH - 02/19/19 15:17 TSH 1.19 mIU/L 0.40-4.50 VITAMIN D, 25-H - 02/19/19 15:17 VITAMIN D,25-OH,TOTAL,IA 21 ng/mL 30-10 0 A1C - 02/19/19 15:17 HEMOGLOBIN A1c 7.6 % of total Hgb <5.7 VITAMIN B12 - 02/19/19 15:17 VITAMIN B12 484 pg/mL 200-1100 CMP - 03/17/19 15:22 GLUCOSE 142 mg/dL 65-99 UREA NITROGEN (BUN) 25 mg/dL 7-25 CREATININE 1.18 mg/dL 0.50-0.99 eGFR NON-AFR. [place] 49 mL/min/1.73m2 > OR = 60 eGFR 57 mL/min/1.73m2 > OR = 60 BUN/CREATININE RATIO 21 (calc) 6-22 SODIUM 140 mmol/L 135-146 POTASSIUM 4.3 mmol/L 3.5-5.3 CHLORIDE 97 mmol/L 98-110 CARBON DIOXIDE 33 mmol/L 20-32 CALCIUM 9.8 mg/dL 8.6-10.4 PROTEIN, TOTAL 7.3 g/dL 6.1-8.1 ALBUMIN 4.0 g/dL 3.6-5.1 GLOBULIN 3.3 g/dL (calc) 1.9-3.7 ALBUMIN/GLOBULIN RATIO 1.2 (calc) 1.0-2. 5 BILIRUBIN, TOTAL 0.3 mg/dL 0.2-1.2 ALKALINE PHOSPHATASE 104 U/L 33-130 AST 14 U/L 10-35 ALT 13 U/L 6-29 TROPONIN I - 03/17/19 15:22 TROPONIN I 0.03 ng/mL < OR = 0.05 Encounters ACCT No. Visit Date/Time Discharge Status Pt. Type Provider Facility Loc./Unit Complaint [id number] 03/05/2019 12:32:00 03/05/2019 23:59 :00 DIS Outpatient SELF, MAX [id number] 04/30/2019 20:33:00 21:08:00 DIS Emergency ROVENSTSTUART FAIRBANKS PRASANNA L [facility] ER FS BACK PAIN,FELL [id number] 02/19/2019 15:07:00 23:59:59 CLS Outpatient SELF NITISH HARRIS [facility] RAD FS M25.551 M25.552 M54.5 [id number] 12/02/2018 15:38:00 23:59:59 CLS Outpatient QING KRAUSE [facility] RAD FS M25.531 [id number] 11/26/2018 14:54:00 23:59:59 CLS Outpatient JYOTI CARRERO APRN [facility] RAD FS R06.00 [id number] 10/03/2018 10:58:00 14:00:00 DIS Emergency KEON STEW M [facility] ER FS FALL [id number] 08/06/2018 15:59:00 23:59:59 CLS Outpatient ZULEYKA DPMMORGAN Q [facility] LAB EDEMA, PAIN [id number] 07/29/2018 00:11:00 23:59:59 CLS Preadmit ZAINAB FORREST [facility] ONC [id number] 04/29/2018 12:25:00 00:01:00 DIS Outpatient ZAINAB FORREST V ia [facility] ONC [id number] 07/19/2018 22:17:00 00:08:00 DIS Emergency ENYART MD, DAYSI E [facility] ER FS VOMITTING [id number] 05/01/2018 13:51:00 019 23:59:59 CLS Outpatient KING SEPIDEH Anthony BATES [facility] RAD FS S40.011A M19.011 [id number] 04/24/2018 17:24:00 019 23:59:59 CLS Outpatient NITISH VARELA MD [facility] RAD FS [id number] 12/30/2017 12:43:00 019 00:01:00 DIS Outpatient LON, BOBAN N [facility] ONC [id number] 09/30/2017 14:38:00 018 12:40:00 DIS Outpatient LON, BOBAN N [facility] ONC [id number] 08/28/2016 10:21:00 017 23:59:59 CLS Outpatient LON BOBAN N [facility] FS [id number] 08/23/2015 10:30:00 016 23:59:59 CLS Outpatient LON BOBAN N [facility] FS [id number] 02/22/2015 10:55:00 016 23:59:59 CLS Outpatient LON, BOBAN N [facility] FS [id number] 08/17/2014 11:28:00 015 23:59:59 CLS Outpatient LON BOBAN N [facility] FS [id number] 01/26/2014 16:02:00 014 23:59:59 CLS Outpatient LON, BOBAN N [facility] FS [id number] 07/28/2013 13:15:00 014 23:59:59 CLS Outpatient LON, BOBAN N [facility] FS [id number] 01/20/2013 13:50:00 013 23:59:59 CLS Outpatient LON BOBAN N V [facility] FS [id number] 07/15/2012 13:41:00 013 23:59:59 CLS Outpatient ZAINAB FORREST [facility] FS [id number] 01/01/2012 14:01:00 Document Registration [id number] 07/17/2011 12:41:00 Document Registration [id number] 04/17/2011 17:11:00 Document Registration [id number] 01/02/2011 14:41:00 Document Registration [id number] 10/16/2010 10:22:00 Document Registration [id number] 08/23/2010 08:48:00 Document Registration [id number] 06/06/2010 14:36:00 Document Registration [id number] 06/23/2018 12:50:01 ACT Unknown [id number] 06/15/2014 13:08:00 06/15/2014 23:59: 59 CLS Outpatient RICHA DUFF APRN [id number] 05/25/2014 13:00:00 05/25/2014 23:59: 59 CLS Outpatient LAMBERTO MCCORMACK PHD [id number] 03/09/2014 14:07:00 03/09/2014 23:59: 59 CLS Outpatient RICHA DUFF APRN [id number] 01/05/2014 13:17:00 01/05/2014 23:59: 59 CLS Outpatient BOGDAN MARTIENZ DDS [id number] 12/30/2013 13:37:00 12/30/2013 23:59: 59 CLS Outpatient LAMBERTO MCCORMACK PHD [id number] 12/03/2013 14:23:00 12/03/2013 23:59: 59 CLS Outpatient LAMBERTO MCCORMACK PHD [id number] 11/10/2013 14:09:00 11/10/2013 23:59: 59 CLS Outpatient LAMBERTO MCCORMACK PHD [id number] 10/07/2013 13:37:00 10/07/2013 23:59: 59 CLS Outpatient LAMBERTO MCCORMACK PHD [id number] 07/27/2013 12:55:00 07/27/2013 23:59: 59 CLS Outpatient LAMBERTO MCCORMACK PHD [id number] 06/30/2013 13:51:00 06/30/2013 23:59: 59 CLS Outpatient EASTON ARMANDOLAMBERTO [id number] 06/09/2013 15:02:00 06/09/2013 23:59: 59 CLS Outpatient LAMBERTO MCCORMACK PHD [id number] 05/07/2013 10:35:00 05/07/2013 23:59: 59 CLS Outpatient JENIFER PUCKETT APRN [id number] 12/03/2012 12:56:00 12/03/2012 23:59: 59 CLS Outpatient EASTON ARMANDOLAMBERTO [id number] 11/03/2012 13:59:00 11/03/2012 23:59: 59 CLS Outpatient PRASANNA PARSONS DO [id number] 02/07/2012 11:46:00 02/07/2012 23:59: 59 [place] [id number] 11/12/2011 13:41:00 11/12/2011 23:59:5 9 CLS Outpatient PRASANNA PARSONS DO [id number] 11/12/2011 13:41:00 11/12/2011 23:59: 59 CLS Outpatient PRASANNA PARSONS DO [id number] 10/28/2012 12:51:00 Document Registration [id number] 09/17/2012 12:41:00 Document Registration [id number] 07/08/2012 09:52:00 Document Registration [id number] 04/20/2019 09:00:00 04/20/2019 23:59:5 9 CLS Outpatient AVERY, NITISH Godinez [facility] [id number] 03/17/2019 14:15:00 Document Registration [id number] 02/19/2019 14:30:00 Document Registration [id number] 09/02/2018 15:15:00 Document Registration [id number] 08/29/2018 08:30:00 Document Registration [id number] 06/05/2018 14:15:00 Document Registration [id number] 05/26/2018 14:40:00 Document Registration [id number] 04/12/2018 13:20:00 Document Registration
== END 2019-04-30 21:08 | disposition home or self-care (01) ==
LOC: EDUNIT# 20:32 → ER FS 20:33
DX: M54.5 Low back pain (principal); G89.29 Other chronic pain; Z88.2 Allergy status to sulfonamides; Z88.1 Allergy status to other antibiotic agents; Z88.8 Allergy status to other drugs, medicaments and biological substances; W19.XXXA Unspecified fall, initial encounter; Y92.009 Unspecified place in unspecified non-institutional (private) residence as the place of occurrence of the external cause
CPT/HCPCS: 72100

== ENCOUNTER → 2019-07-24 | Outpatient (CLI) | payer MEDICARE, MEDICAID ==
[~2019-07-24] MED LIST changes: +IBUP-1780 PO; +METF-865; -METF500T19
--- NOTE | 2019-07-24 12:26 | Diagnostic Imaging Report ---
INDICATION: Fall with pain There is a moderate knee joint effusion superiorly seen in the lateral view. There is tricompartmental osteoarthritis greatest at the lateral than medial tibiofemoral compartment. Patellar spurring is most notably off its superior pole. No fracture or dislocation however. IMPRESSION: Osteoarthritis and a joint effusion. Dictated by: Dictated on workstation # [id number]
--- NOTE | 2019-07-24 12:26 | Diagnostic Imaging Report ---
INDICATION: Fall with left rib pain. No left lung contusion, pneumothorax or hemothorax. No free air beneath the left hemidiaphragm. No displaced left rib fracture deformity or suspicious lucencies. IMPRESSION: Unremarkable 4 view left rib series. Dictated by: Dictated on workstation # [id number]
== END ==
LOC: RAD FS 11:47
PROVIDERS: ATTEND Nurse Practitioner Family
DX: S20.20XA Contusion of thorax, unspecified, initial encounter (principal); M17.11 Unilateral primary osteoarthritis, right knee; W19.XXXA Unspecified fall, initial encounter
CPT/HCPCS: 71100; 73562

== ENCOUNTER 2019-09-01 17:48 | Emergency (ER) | payer OTHER, MEDICAID ==
[~2019-09-01] VITALS: Ht 165 cm; Wt 120.2 kg
--- NOTE | 2019-09-01 18:39 | ED Fall/Injury ---
General Chief Complaint: Trauma-Non Activation Stated Complaint: RT KNEE,LEFT HIP PAIN;KNOT ON HEAD Nursing Triage Note: Right head pain, right knee pain, left hip pain. History of Present Illness Date Seen by Provider: Sep 01, 2019 Time Seen by Provider: 18:15 Initial Comments Patient lost balance and fell landing on her left hip pain in the left hip as well as right knee some pain at the top of the head no neck pain is on aspirin no other blood thinners no loss of consciousness Location Injury Occurred: patient's home Occurred: just prior to arrival Severity: mild Injuries/Pain Location: head, pelvis, lower extremity Context: lost balance Loss of Consciousness: no loss of consciousness Modifying Factors: Improves With Immobilization; Worse With Movement Associated Symptoms (Fall): No Abdominal Pain, No Chest Pain, No Confusion, No Dizziness; Headache; No Lightheadedness, No Muscle Spasms, No Nausea/Vomiting, No Neck Pain, No Ringing in Ears, No Seizures, No Shortness of Air, No Slurred Speech Allergies and Home Medications Allergies Coded Allergies: Sulfa (Sulfonamide Antibiotics) (Verified Allergy, Intermediate, Rash, 07/19/18) azithromycin (Verified Allergy, Intermediate, Nausea, 07/19/18) nausea and vomiting oxycodone (Verified Allergy, Intermediate, Rash, 07/19/18) prednisone (Verified Allergy, Intermediate, Rash, 07/19/18) Rash, Nausea/Vomiting propoxyphene (Verified Allergy, Intermediate, Rash, 07/19/18) vilazodone (Verified Allergy, Intermediate, Diarrhea, 07/19/18) aspartame (Verified Allergy, Unknown, 07/19/18) Home Medications Hydrocodone/Acetaminophen 1 Each Tablet, 1 TAB PO QHS Prescribed by: STEW HERBERT on 10/03/181346 Hydrocodone/Acetaminophen 1 Each Tablet, 1 TAB PO Q6H Prescribed by: PRASANNA CORDERO on 04/30/192056 Ibuprofen 400 Mg Tablet, 400 MG PO Q6H PRN for PAIN Prescribed by: STEW HERBERT on 10/03/181346 Ibuprofen 800 Mg Tablet, 800 MG PO Q8H PRN for PAIN Prescribed by: PRASANNA CORDERO on 04/30/192056 Patient Home Medication List Home Medication List Reviewed: Yes Review of Systems Review of Systems Constitutional: No chills, No diaphoresis, No fever, No malaise, No weakness Eyes: Denies Blurred Vision, Denies Vision Changes Ears, Nose, Mouth, Throat: denies ear pain, denies nose pain Respiratory: No cough, No short of breath Cardiovascular: No chest pain, No palpitations Gastrointestinal: No abdominal pain, No nausea, No vomiting Genitourinary: No dysuria, No frequency Musculoskeletal: No back pain; joint pain; No joint swelling; muscle pain; No m uscle weakness, No neck pain Skin: lesions Psychiatric/Neurological: No Symptoms Reported Past Vwbfnbj-Vflbai-Lqbwnh Hx Past Med/Social Hx: Reviewed Nursing Past Med/Soc Hx Patient Social History Alcohol Use: Denies Use Recreational Drug Use: No Smoking Status: Never a Smoker 2nd Hand Smoke Exposure: No Recent Foreign Travel: No Contact w/Someone Who Travel: No Recent Infectious Disease Expo: No Recent Hopitalizations: No Physical Abuse: No Sexual Abuse: No Mistreated: No Fear: No Seasonal Allergies Seasonal Allergies: No Past Medical History Surgeries: Yes Section, Hysterectomy Respiratory: Yes Sleep Apnea Cardiac: Yes Hypertension 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 0oz. [id number]; 44.00 BMI Method:Estimated General Appearance: WD/WN, no apparent distress HEENT: PERRL/EOMI, TMs normal, pharynx normal Neck: non-tender, full range of motion, supple, other (patient has multiple skin lesions at the base of her neck consistent with mild folliculitis.) Cardiovascular: regular rate, rhythm, no edema Respiratory: chest non-tender, lungs clear Gastrointestinal: normal bowel sounds, non tender, soft Back: normal inspection, no vertebral tenderness Extremities: other (mild tenderness to palpation of the left hip pain with range of motion in the right knee minimal amount of swelling in the right knee pelvis seems stable.) 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, no motor/sensory deficits, normal mood/affect Skin: normal color, warm/dry Progress/Results/Core Measures Results/Orders My Orders Orders - PHYLLIS CORREIA JR, MD Ct Head/Neck Wo (09/01/19 18:23) Pelvis With Left Hip 2-3 View (09/01/19 18:23) Knee 3 View Right (09/01/19 18:23) Vital Signs/I&O 09/01/19 17:52 Temp 37.1 Pulse 95 Resp 18 B/P (MAP) 110/83 (92) Pulse Ox 92 O2 Delivery Room Air Blood Pressure Mean: 92 Departure Communication (Admissions) Discussed with patient about x-ray results did say she had a little bit of anterior lower chest wall rib tenderness on the right Noel she went to x-ray at this time talked about x-raying and she said she'd rather just go home and see how it does. Also discussed about not using alcohol on the lesions on her neck will use some Bactroban ointment for that will follow up if any problems Impression Primary Impression: Fall Qualified Codes: W19.XXXA - Unspecified fall, initial encounter Additional Impressions: Contusion of hip, left Qualified Codes: S70.02XA - Contusion of left hip, initial encounter Strain of right knee Qualified Codes: S86.911A - Strain of unspecified muscle(s) and tendon(s) at lower leg level, right leg, initial encounter Head contusion Qualified Codes: S00.03XA - Contusion of scalp, initial encounter Disposition: 01 HOME, SELF-CARE Condition: Stable Departure-Patient Inst. Referrals: NITISH VARELA MD (PCP/Family) Primary Care Physician Patient Instructions: Preventing Falls, Minor Head Injury (DC) Scripts Mupirocin Calcium (Mupirocin) 15 Gm Cream..g. 15 GM TP TID for 10 Days, TUBE Prov: PHYLLIS CORREIA JR, MD 09/01/19 PHYLLIS CORREIA JR, MD Sep 01, 2019 18:39
--- NOTE | 2019-09-01 19:24 | Diagnostic Imaging Report ---
INDICATION: Left hip pain after a fall. FINDINGS: The alignment is normal. There is no fracture or dislocation. The soft tissues are unremarkable. IMPRESSION: No acute fracture or dislocation. Dictated by: Dictated on workstation # [id number]
--- NOTE | 2019-09-01 19:34 | Diagnostic Imaging Report ---
INDICATION: Knee pain after a fall. 4 views were obtained FINDINGS: There is 3 compartment osteoarthritic change. No fracture or dislocation. Soft tissues are unremarkable. IMPRESSION: 3 compartment osteoarthritic changes, otherwise unremarkable. Dictated by: Dictated on workstation # [id number]
--- NOTE | 2019-09-01 19:35 | Diagnostic Imaging Report ---
PROCEDURE: CT head and neck without contrast. TECHNIQUE: Contiguous axial images were obtained from the skull base through the vertex. Noncontrast axial images were then obtained of the soft tissue of the neck. Auto Exposure Controls were utilized during the CT exam to meet ALARA standards for radiation dose reduction. INDICATION: Head and neck pain after a fall. CT HEAD: The ventricles and sulci are within normal limits. There is no hydrocephalus or cerebral edema. There is no midline shift or mass effect. There is no intracranial mass, hemorrhage or extra-axial fluid collection. The visualized paranasal sinuses and mastoid air cells are clear. No fractures are identified. CERVICAL SPINE: Alignment is normal. There is no fracture or traumatic subluxation. The prevertebral soft tissues are within normal limits. The odontoid is intact and the lateral masses are well aligned. There are no soft tissue abnormalities. IMPRESSION: 1. No acute intracranial process. 2. No focal abnormality in the cervical spine. Dictated by: Dictated on workstation # [id number]
[2019-09-01] MEDS ORDERED: MUPI15CR11 TP (19:49)
[2019-09-01 19:59] VITALS: BP 105/81
== END 2019-09-01 19:59 | disposition home or self-care (01) ==
LOC: EDUNIT# 17:48 → ER FS 17:49
DX: S00.03XA Contusion of scalp, initial encounter (principal); S70.02XA Contusion of left hip, initial encounter; S86.911A Strain of unspecified muscle(s) and tendon(s) at lower leg level, right leg, initial encounter; Z79.82 Long term (current) use of aspirin; Z88.2 Allergy status to sulfonamides; Z88.1 Allergy status to other antibiotic agents; Z88.5 Allergy status to narcotic agent; Z88.8 Allergy status to other drugs, medicaments and biological substances; W18.39XA Other fall on same level, initial encounter; Y92.009 Unspecified place in unspecified non-institutional (private) residence as the place of occurrence of the external cause
CPT/HCPCS: 70450; 70490; 73502; 73562

== ENCOUNTER 2019-12-09 15:53 | Emergency (ER) | payer OTHER, MEDICAID ==
[~2019-12-09 15:53] MED LIST changes: +MUPI15CR11 TP
[2019-12-09] MEDS ORDERED: NS IV 500 ML 500 ML IV STA (15:57)
[2019-12-09] MEDS ORDERED: ONDANSETRON 4 MG/2 ML (SDV) Z0FRAN IVP ONE (16:00)
--- NOTE | 2019-12-09 16:00 | ED Abdominal Pain ---
General Chief Complaint: Abdominal/GI Problems Stated Complaint: ABD PAIN Source of Information: Patient, EMS, EMS Notes Reviewed, Old Records, RN/MD, RN Notes Reviewed Exam Limitations: No Limitations History of Present Illness Date Seen by Provider: Dec 09, 2019 Time Seen by Provider: 15:50 Initial Comments This patient is a 64-year-old female presents to the emergency department complaining of diarrhea abdominal cramping and nausea. Patient states she feels like she is vomit. EMS reports the patient has not vomited. Patient states the symptoms been going on for about 30 minutes. We'll do medical evaluation treatment is needed. Timing/Duration: 1/2 Hour Severity/Quality: Moderate Radiation: No Radiation Associated Symptoms: No Denies Symptoms, No Back Pain, No Chest Pain, No Diaphoresis, No Fever/Chills, No Fatigue, No Headache, No Heartburn; Nausea/Vomiting; No Rash, No Shortness of Air, No Swelling/Mass in Abdomen, No Syncope, No Weakness, No Other Allergies and Home Medications Allergies Coded Allergies: Sulfa (Sulfonamide Antibiotics) (Verified Allergy, Intermediate, Rash, 07/19/18) azithromycin (Verified Allergy, Intermediate, Nausea, 07/19/18) nausea and vomiting oxycodone (Verified Allergy, Intermediate, Rash, 07/19/18) prednisone (Verified Allergy, Intermediate, Rash, 07/19/18) Rash, Nausea/Vomiting propoxyphene (Verified Allergy, Intermediate, Rash, 07/19/18) vilazodone (Verified Allergy, Intermediate, Diarrhea, 07/19/18) aspartame (Verified Allergy, Unknown, 07/19/18) Home Medications Hydrocodone/Acetaminophen 1 Each Tablet, 1 TAB PO QHS Prescribed by: STEW HERBERT on 10/03/181346 Hydrocodone/Acetaminophen 1 Each Tablet, 1 TAB PO Q6H Prescribed by: PRASANNA CORDERO on 04/30/192056 Ibuprofen 400 Mg Tablet, 400 MG PO Q6H PRN for PAIN Prescribed by: STEW HERBERT on 10/03/181346 Ibuprofen 800 Mg Tablet, 800 MG PO Q8H PRN for PAIN Prescribed by: PRASANNA CORDERO on 04/30/192056 Mupirocin Calcium 15 Gm Cream..g., 15 GM TP TID Prescribed by: PHYLLIS CORREIA on 09/01/191948 Patient Home Medication List Home Medication List Reviewed: Yes Review of Systems Review of Systems Constitutional: No no symptoms reported, No see HPI, No chills, No diaphoresis, No dizziness, No fever, No malaise, No weakness, No weight gain, No weight loss, No other EENTM: No No Symptoms Reported, No See HPI, No Blurred Vision, No Double Vision, No Eye Pain, No Eye Tearing, No Ear Drainage, No Ear Pain, No Mouth Pain, No Mouth Swelling, No Nose Congestion, No Nose Pain, No Throat Pain, No Throat Swelling, No Other Respiratory: Denies No Symptoms Reported, Denies See HPI, Denies Cough, Denies Orthopnea, Denies Shortness of Air, Denies SOA With Exertion, Denies SOA at Rest, Denies Stridor, Denies Wheezing, Denies Other Cardiovascular: Denies No Symptoms Reported, Denies See HPI, Denies Chest Pain, Denies Edema, Denies Irregular Heart Rate, Denies Lightheadedness, Denies Palpitations, Denies Syncope, Denies Other Gastrointestinal: Denies No Symptoms Reported; See HPI; Denies Abdomen Distended; Abdominal Pain; Denies Blood Streaked Stools, Denies Constipated; Diarrhea; Denies Difficulty Swallowing; Nausea; Denies Poor Appetite, Denies Poor Fluid Intake, Denies Rectal Bleeding, Denies Vomiting, Denies Other Genitourinary: Denies No Symptoms Reported, Denies See HPI, Denies Burning, Denies Discharge, Denies Drainage, Denies Frequency, Denies Flank Pain, Denies Hematuria, Denies Incontinence, Denies Pain, Denies Urgency, Denies Other Musculoskeletal: No no symptoms reported, No see HPI, No back pain, No gout, No joint pain, No joint swelling, No muscle pain, No muscle stiffness, No muscle cramps, No muscle twitching, No muscle weakness, No neck pain, No other Skin: No no symptoms reported, No see HPI, No change in color, No change in hair/nails, No dryness, No hx of skin cancer, No lesions, No lumps, No pruritus, No rash, No other All Other Systems Reviewed Negative Unless Noted: Yes Past Unzdodc-Ollkfn-Ybkwsh Hx Patient Social History 2nd Hand Smoke Exposure: No Recent Hopitalizations: No Seasonal Allergies Seasonal Allergies: No Past Medical History Surgeries: Yes Section, Hysterectomy Respiratory: Yes Sleep Apnea Cardiac: Yes Hypertension 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 0oz. 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, no motor/sensory deficits, alert, normal mood/affect, oriented x 3 Skin: normal color, warm/dry Progress/Results/Core Measures Results/Orders Lab Results Laboratory Tests Test 12/09/19 16:00 12/09/19 16:50 Range/Units White Blood Count 9.0 4.3-11.0 10^3/uL Red Blood Count 3.73 L 4.35-5.85 10^6/uL Hemoglobin 11.1 L 11.5-16.0 G/DL Hematocrit 35 35-52 % Mean Corpuscular Volume 94 80-99 FL Mean Corpuscular Hemoglobin 30 25-34 PG Mean Corpuscular Hemoglobin Concent 32 32-36 G/DL Red Cell Distribution Width 15.5 H 10.0-14.5 % Platelet Count 297 130-400 10^3/uL Mean Platelet Volume 9.1 7.4-10.4 FL Immature Granulocyte % (Auto) 0 % Neutrophils (%) (Auto) 62 42-75 % Lymphocytes (%) (Auto) 28 12-44 % Monocytes (%) (Auto) 7 0-12 % Eosinophils (%) (Auto) 2 0-10 % Basophils (%) (Auto) 1 0-10 % Neutrophils # (Auto) 5.6 1.8-7.8 X 10^3 Lymphocytes # (Auto) 2.5 1.0-4.0 X 10^3 Monocytes # (Auto) 0.6 0.0-1.0 X 10^3 Eosinophils # (Auto) 0.2 0.0-0.3 10^3/uL Basophils # (Auto) 0.1 0.0-0.1 10^3/uL Immature Granulocyte # (Auto) 0.0 0.0-0.1 10^3/uL Urine Color YELLOW Urine Clarity CLEAR Urine pH 7.0 5-9 Urine Specific [place] 1.010 L 1.016-1.022 Urine Protein NEGATIVE NEGATIVE Urine Glucose (UA) NEGATIVE NEGATIVE Urine Ketones NEGATIVE NEGATIVE Urine Nitrite NEGATIVE NEGATIVE Urine Bilirubin NEGATIVE NEGATIVE Urine Urobilinogen 0.2 < = 1.0 MG/DL Urine Leukocyte Esterase NEGATIVE NEGATIVE Urine RBC (Auto) NEGATIVE NEGATIVE Urine RBC NONE /HPF Urine WBC 0-2 /HPF Urine Squamous Epithelial Cells 5-10 /HPF Urine Crystals NONE /LPF Urine Bacteria FEW H /HPF Urine Casts NONE /LPF Urine Mucus NEGATIVE /LPF Urine Culture Indicated NO Sodium Level 135 135-145 MMOL/L Potassium Level 5.8 H 3.6-5.0 MMOL/L Chloride Level 99 98-107 MMOL/L Carbon Dioxide Level 25 21-32 MMOL/L Anion Gap 11 5-14 MMOL/L Blood Urea Nitrogen 30 H 7-18 MG/DL Creatinine 1.23 0.60-1.30 MG/DL Estimat Glomerular Filtration Rate 44 BUN/Creatinine Ratio 24 Glucose Level 125 H 70-105 MG/DL Calcium Level 9.6 8.5-10.1 MG/DL Corrected Calcium 10.1 8.5-10.1 MG/DL Total Bilirubin 0.2 0.1-1.0 MG/DL Aspartate Amino Transf (AST/SGOT) 16 5-34 U/L Alanine Aminotransferase (ALT/SGPT) 10 0-55 U/L Alkaline Phosphatase 93 40-136 U/L Total Protein 7.3 6.4-8.2 GM/DL Albumin 3.4 3.2-4.5 GM/DL Lipase 15 8-78 U/L My Orders Orders - DIPAK BURRELL MD Ed Iv/Invasive Line Start (12/09/19 15:57) Cbc With Automated Diff (12/09/19 15:57) Comprehensive Metabolic Panel (12/09/19 15:57) Urinalysis (12/09/19 15:57) Lipase (12/09/19 15:57) Abdomen Flat & Upright/Decub (12/09/19 15:57) Ondansetron Injection (Zofran Injectio (12/09/19 16:00) Ns Iv 500 Ml (Sodium Chloride 0.9%) (12/09/19 15:57) Medications Given in ED Current Medications Medications Dose Ordered Sig/Bebeto Route Start Time Stop Time Status Last Admin Dose Admin Ondansetron HCl 4 mg ONCE ONCE IVP 12/09/19 16:00 12/09/19 16:01 DC 12/09/19 16:07 4 MG Vital Signs/I&O 12/09/19 15:57 Temp 35.5 Pulse 88 Resp 16 B/P (MAP) 132/109 (117) Pulse Ox 94 Progress Progress Note : Time: 17:23 Progress Note Patient is feeling much improved after Zofran. Imaging revealed patient's significant constipated. Patient does take pain medications at home. Loose stools most likely encopresis. Patient will get be given Zofran as needed for nausea. Patient should be on a clear liquid diet and advance slowly. Patient is a takes Senokot [id number] for constipation. May continue MiraLAX. Patient should also makes 4 ounces of prune juice with 2 tablespoons of milk of magnesia and and drink twice daily. 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 Departure Impression Primary Impression: Nausea alone Additional Impressions: Constipation Hyperkalemia Disposition: HOME, SELF-CARE Condition: Stable Departure-Patient Inst. Decision time for Depature: 17:24 Referrals: SELF,NITISH HARRIS (PCP/Family) Primary Care Physician Patient Instructions: Constipation, Adult (DC) Add. Discharge Instructions: Patient will get be given Zofran as needed for nausea. Patient should be on a clear liquid diet and advance slowly. Patient is a takes Senokot [id number] ter for constipation. May continue MiraLAX. Patient should also makes 4 ounces of prune juice with 2 tablespoons of milk of magnesia and and drink twice daily. 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 All discharge instructions reviewed with patient and/or family. Voiced understanding. Scripts Ondansetron (Ondansetron Odt) 4 Mg Tab.rapdis 4 MG PO BID, #10 TAB Prov: DIPAK BURRELL MD 12/09/19 DIPAK BURRELL MD Dec 09, 2019 16:00
--- NOTE | 2019-12-09 16:52 | Diagnostic Imaging Report ---
INDICATION: Nausea and diarrhea Supine and upright abdominal films are obtained. Upper abdominal film shows no evidence of free air. There are postoperative changes in the lumbar spine with multilevel fusion. Abdominal bowel gas pattern is unremarkable. There is moderately prominent stool throughout the colon. IMPRESSION: No overt obstruction or ileus. Moderately prominent stool throughout the colon. No sign of free air. Dictated by: Dictated on workstation # [id number]
[2019-12-09 17:02] LABS: HEMATOCRIT 35 % (35-52); HEMOGLOBIN 11.1 G/DL (11.5-16.0); MEAN CORPUSCULAR HEMOGLOBIN 30 PG (25-34); MEAN CORPUSCULAR HGB CONC 32 G/DL (32-36); MEAN CORPUSCULAR VOLUME 94 FL (80-99)
[2019-12-09 17:03] LABS: BASOPHILS # (AUTO) 0.1 10^3/uL (0.0-0.1); BASOPHILS % (AUTO) 1 % (0-10); EOSINOPHILS # (AUTO) 0.2 10^3/uL (0.0-0.3); EOSINOPHILS % (AUTO) 2 % (0-10); LYMPHOCYTES # (AUTO) 2.5 X 10^3 (1.0-4.0); LYMPHOCYTES % (AUTO) 28 % (12-44); MEAN PLATELET VOLUME 9.1 FL (7.4-10.4); MONOCYTES # (AUTO) 0.6 X 10^3 (0.0-1.0); MONOCYTES % (AUTO) 7 % (0-12); NEUTROPHILS # (AUTO) 5.6 X 10^3 (1.8-7.8); NEUTROPHILS % (AUTO) 62 % (42-75); PLATELET COUNT 297 10^3/uL (130-400)
[2019-12-09 17:07] LABS: BILIRUBIN,URINE NEGATIVE (NEGATIVE); CLARITY,URINE CLEAR; COLOR,URINE YELLOW; GLUCOSE, URINE (UA) NEGATIVE (NEGATIVE); KETONES,URINE NEGATIVE (NEGATIVE); NITRITE,URINE NEGATIVE (NEGATIVE); PROTEIN,URINE NEGATIVE (NEGATIVE)
[2019-12-09 17:08] LABS: BACTERIA,URINE FEW /HPF; LEUKOCYTE ESTERASE ,URINE NEGATIVE (NEGATIVE); WBC,URINE 0-2 /HPF
[2019-12-09 17:15] LABS: CALCIUM 9.6 MG/DL (8.5-10.1); CREATININE SERUM 1.23 MG/DL (0.60-1.30); POTASSIUM 5.8 MMOL/L (3.6-5.0)
[2019-12-09 17:16] LABS: ALBUMIN 3.4 GM/DL (3.2-4.5); BILIRUBIN,TOTAL 0.2 MG/DL (0.1-1.0); TOTAL PROTEIN 7.3 GM/DL (6.4-8.2)
[2019-12-09] MEDS ORDERED: ONDA4TAB11 PO (17:25)
[2019-12-09 17:34] VITALS: BP 131/80
== END 2019-12-09 17:39 | disposition home or self-care (01) ==
LOC: EDUNIT# 15:53 → ER FS 15:54
DX: R11.0 Nausea (principal); K59.00 Constipation, unspecified; E87.5 Hyperkalemia; Z88.2 Allergy status to sulfonamides; Z88.1 Allergy status to other antibiotic agents; Z88.5 Allergy status to narcotic agent; Z88.8 Allergy status to other drugs, medicaments and biological substances
CPT/HCPCS: 36415; 74019; 80053; 81000; 83690; 85025

== ENCOUNTER 2020-02-20 09:20 | Emergency (ER) | payer MEDICARE, MEDICAID ==
[~2020-02-20] VITALS: Ht 162.5 cm; Wt 118.4 kg
[2020-02-20] MEDS ORDERED: NS IV 1000 ML 1,000 ML IV STA ×2 (09:29→11:21)
[2020-02-20 10:07] LABS: HEMATOCRIT 33 % (35-52); MEAN CORPUSCULAR HEMOGLOBIN 29 PG (25-34); MEAN CORPUSCULAR HGB CONC 30 G/DL (32-36); MEAN CORPUSCULAR VOLUME 97 FL (80-99); PLATELET COUNT 257 10^3/uL (130-400); WHITE BLOOD COUNT 10.7 10^3/uL (4.3-11.0)
[2020-02-20 10:08] LABS: BASOPHILS # (AUTO) 0.1 10^3/uL (0.0-0.1); BASOPHILS % (AUTO) 1 % (0-10); EOSINOPHILS # (AUTO) 0.2 10^3/uL (0.0-0.3); EOSINOPHILS % (AUTO) 2 % (0-10); LYMPHOCYTES % (AUTO) 28 % (12-44); MONOCYTES # (AUTO) 0.8 X 10^3 (0.0-1.0); MONOCYTES % (AUTO) 7 % (0-12); NEUTROPHILS # (AUTO) 6.7 X 10^3 (1.8-7.8); NEUTROPHILS % (AUTO) 62 % (42-75)
--- NOTE | 2020-02-20 10:18 | ED General ---
General Stated Complaint: FALL Source of Information: Patient, EMS History of Present Illness Date Seen by Provider: Feb 20, 2020 Time Seen by Provider: 09:20 Initial Comments 65-year-old female presenting by EMS from home after having frequent falls and slightly into the floor. She states that she has to use a walker to get around but still frequently has to get assistance to get up from the floor. She frequently calls 911 to get help with movement and lifting her from the floor. She states that she thinks she bumped her head this morning as well but did not lose consciousness. She was complaining of increased grinding and pain in her right knee since her sliding to the floor this morning. She had not taking any of her medication for diabetes or blood pressure this morning yet. She denies any diarrhea or change in her urine. She has had no burning or pain with urination but did have a UTI a few weeks ago. She is wearing an adult brief. She lives at home and has some assistance but not all the time. She does use a Walker when she gets up to walk and move around. Allergies and Home Medications Allergies Coded Allergies: Sulfa (Sulfonamide Antibiotics) (Verified Allergy, Intermediate, Rash, 07/19/18) azithromycin (Verified Allergy, Intermediate, Nausea, 07/19/18) nausea and vomiting oxycodone (Verified Allergy, Intermediate, Rash, 07/19/18) prednisone (Verified Allergy, Intermediate, Rash, 07/19/18) Rash, Nausea/Vomiting propoxyphene (Verified Allergy, Intermediate, Rash, 07/19/18) vilazodone (Verified Allergy, Intermediate, Diarrhea, 07/19/18) aspartame (Verified Allergy, Unknown, 07/19/18) Home Medications Hydrocodone/Acetaminophen 1 Each Tablet, 1 TAB PO QHS Prescribed by: STEW HERBERT on 10/03/181346 Hydrocodone/Acetaminophen 1 Each Tablet, 1 TAB PO Q6H Prescribed by: PRASANNA CORDERO on 04/30/192056 Ibuprofen 400 Mg Tablet, 400 MG PO Q6H PRN for PAIN Prescribed by: STEW HERBERT on 10/03/181346 Ibuprofen 800 Mg Tablet, 800 MG PO Q8H PRN for PAIN Prescribed by: PRASANNA CORDERO on 04/30/192056 Mupirocin Calcium 15 Gm Cream..g., 15 GM TP TID Prescribed by: PHYLLIS CORREIA on 09/01/19 194 Ondansetron 4 Mg Tab.rapdis, 4 MG PO BID Prescribed by: DIPAK BURRELL on 12/09/19 1725 Patient Home Medication List Home Medication List Reviewed: Yes Review of Systems Review of Systems Constitutional: No chills, No dizziness, No fever EENTM: no symptoms reported Respiratory: no symptoms reported Cardiovascular: no symptoms reported Gastrointestinal: No abdominal pain; nausea; No vomiting Genitourinary: see HPI Musculoskeletal: see HPI, joint pain (bilateral hip and right knee and left shoulder pain since sliding to floor this am) Skin: no symptoms reported Psychiatric/Neurological: Weakness (general weakness) Past Eosdeqj-Hwovhf-Dkrxel Hx Past Med/Social Hx: Reviewed Nursing Past Med/Soc Hx Patient Social History 2nd Hand Smoke Exposure: No Recent Hopitalizations: No Seasonal Allergies Seasonal Allergies: No Past Medical History Surgeries: Yes Section, Hysterectomy Respiratory: Yes Sleep Apnea Cardiac: Yes Hypertension Neurological: No BALLOON PILOT History: Hysterectomy Genitourinary: No Gastrointestinal: Yes Gastroesophageal Reflux Musculoskeletal: Yes Degenerate Disk Disease, Arthritis Endocrine: Yes Diabetes, Non-Insulin dep HEENT: No Cancer: No Psychosocial: Yes Anxiety Integumentary: No Blood Disorders: No Physical Exam Vital Signs Vital Signs - First Documented 02/20/20 02/20/20 09:20 11:00 Temp 36.1 Pulse 94 Resp 18 B/P (MAP) 88/60 (69) Pulse Ox 92 O2 Delivery Room Air O2 Flow Rate 2.00 FiO2 95 Capillary Refill : Height, Weight, BMI Height: 5'3.00" Weight: 250lbs. 0oz. [id number]; 44.00 BMI Method:Estimated General Appearance: No Apparent Distress, Obese HEENT: PERRL/EOMI, Pharynx Normal Neck: Full Range of Motion, Normal Inspection, Non Tender, Supple Respiratory: Lungs Clear, No Accessory Muscle Use, No Respiratory Distress, Decreased Breath Sounds Cardiovascular: Regular Rate, Rhythm, Normal Peripheral Pulses Gastrointestinal: Normal Bowel Sounds, No Pulsatile Mass, Non Tender, Soft Rectal: Deferred Extremity: Normal Capillary Refill, No Calf Tenderness, No Pedal Edema, Other (normal ROM of joints bilateral hips and knees as well as shoulders but complains of pain with movement. Able to stand and walk with assistance) Neurologic/Psychiatric: Alert, Oriented x3, staff weapons officer II-XII Norm as Tested Skin: Warm/Dry, Other (superficial abrasion to left knee) Progress/Results/Core Measures Suspected Sepsis SIRS Temperature: Pulse: Respiratory Rate: Laboratory Tests 02/20/20 09:53: White Blood Count 10.7 Blood Pressure / Mean: Laboratory Tests 02/20/20 09:53: Creatinine 3.02H, Platelet Count 257, Total Bilirubin 0.3 Results/Orders Lab Results Laboratory Tests Test 02/20/20 09:53 02/20/20 11:02 Range/Units White Blood Count 10.7 4.3-11.0 10^3/uL Red Blood Count 3.40 L 4.35-5.85 10^6/uL Hemoglobin 10.0 L 11.5-16.0 G/DL Hematocrit 33 L 35-52 % Mean Corpuscular Volume 97 80-99 FL Mean Corpuscular Hemoglobin 29 25-34 PG Mean Corpuscular Hemoglobin Concent 30 L 32-36 G/DL Red Cell Distribution Width 14.8 H 10.0-14.5 % Platelet Count 257 130-400 10^3/uL Mean Platelet Volume 9.0 7.4-10.4 FL Immature Granulocyte % (Auto) 1 % Neutrophils (%) (Auto) 62 42-75 % Lymphocytes (%) (Auto) 28 12-44 % Monocytes (%) (Auto) 7 0-12 % Eosinophils (%) (Auto) 2 0-10 % Basophils (%) (Auto) 1 0-10 % Neutrophils # (Auto) 6.7 1.8-7.8 X 10^3 Lymphocytes # (Auto) 3.0 1.0-4.0 X 10^3 Monocytes # (Auto) 0.8 0.0-1.0 X 10^3 Eosinophils # (Auto) 0.2 0.0-0.3 10^3/uL Basophils # (Auto) 0.1 0.0-0.1 10^3/uL Immature Granulocyte # (Auto) 0.1 0.0-0.1 10^3/uL Sodium Level 133 L 135-145 MMOL/L Potassium Level 5.1 H 3.6-5.0 MMOL/L Chloride Level 94 L 98-107 MMOL/L Carbon Dioxide Level 28 21-32 MMOL/L Anion Gap 11 5-14 MMOL/L Blood Urea Nitrogen 40 H 7-18 MG/DL Creatinine 3.02 H 0.60-1.30 MG/DL Estimat Glomerular Filtration Rate 16 BUN/Creatinine Ratio 13 Glucose Level 141 H 70-105 MG/DL Calcium Level 8.9 8.5-10.1 MG/DL Corrected Calcium 9.1 8.5-10.1 MG/DL Total Bilirubin 0.3 0.1-1.0 MG/DL Aspartate Amino Transf (AST/SGOT) 15 5-34 U/L Alanine Aminotransferase (ALT/SGPT) 9 0-55 U/L Alkaline Phosphatase 113 40-136 U/L Total Protein 7.1 6.4-8.2 GM/DL Albumin 3.7 3.2-4.5 GM/DL Urine Color YELLOW Urine Clarity SLT CLOUDY Urine pH 5.0 5-9 Urine Specific [place] >=1.030 1.016-1.022 Urine Protein NEGATIVE NEGATIVE Urine Glucose (UA) NEGATIVE NEGATIVE Urine Ketones TRACE H NEGATIVE Urine Nitrite NEGATIVE NEGATIVE Urine Bilirubin NEGATIVE NEGATIVE Urine Urobilinogen 1.0 < = 1.0 MG/DL Urine Leukocyte Esterase NEGATIVE NEGATIVE Urine RBC (Auto) NEGATIVE NEGATIVE Urine RBC NONE /HPF Urine WBC NONE /HPF Urine Squamous Epithelial Cells NONE /HPF Urine Crystals PRESENT H /LPF Urine Amorphous Sediment FEW MARCOS URATES H /LPF Urine Bacteria TRACE /HPF Urine Casts NONE /LPF Urine Mucus NEGATIVE /LPF Urine Culture Indicated NO My Orders Orders - DAYSI DE LA FUENTE MD Comprehensive Metabolic Panel (02/20/20 09:29) Ua Culture If Indicated (02/20/20 09:29) Ed Iv/Invasive Line Start (02/20/20 09:29) Cbc With Automated Diff (02/20/20 09:29) Ct Head/Cervical Spine Wo (02/20/20 09:29) Ct Pelvis Wo (02/20/20 09:29) Knee 3 View Right (02/20/20 09:29) Ns Iv 1000 Ml (Sodium Chloride 0.9%) (02/20/20 09:29) Shoulder 2 View Left (02/20/20 09:29) O2 (02/20/20 10:48) Peirson Cath (02/20/20 10:48) Acetaminophen Tablet (Tylenol Tablet) (02/20/20 11:21) Ns Iv 1000 Ml (Sodium Chloride 0.9%) (02/20/20 11:21) Vital Signs/I&O 02/20/20 02/20/20 09:20 11:00 Temp 36.1 Pulse 94 Resp 18 B/P (MAP) 88/60 (69) Pulse Ox 92 O2 Delivery Room Air Nasal Cannula O2 Flow Rate 2.00 FiO2 95 Capillary Refill : Progress Note #1: Progress Note obtain basic labs and give IVF for her initial blood pressures being low. Check CT of head, cervical spine, pelvis to evaluate bilateral hips. Left shoulder and right Knee xrays. Progress Note #2: Time: 10:48 Progress Note On my review of her imaging she has not acute significant abnormality or fracture. Labs show stable CBC without acute significant abnormality. She has chronic anemia with a hemoglobin of 10 which is at her baseline from comparison with old tests. Her chemistry does show elevated BUN and creatinine with a creatinine of 3.0. Her previous labs had all showing a creatinine of around 1. She denies any vomiting or diarrhea. She states that she may be has not been drinking quite as much. She had a Pierson placed to monitor urine output and check for infection. Check with Dr. Decker for the [facility] service at [facility] to see if they have a bed that can accept her for admit. She also states she has sleep apnea but her CPAP is broken. As she drifts to sleep here in the ED her saturation drops to 90% so placed on 2 Lpm by n.c. and she came up to 100%. With talking to her the O2 sats came up to 94% on room air. 1056 D/w Dr. Decker and she stated that due to no ICU or step down beds to monitor blood pressure and kidneys as well as no Nephrology she felt the pt would need to go to a higher level of care. d/w pt and she wanted to try going to [place] if possible and had been a [facility] patient when Angélica was here at [place]. 1102 call placed to transfer center at [facility] and spoke with Marisela. She stated that [facility] was on diversion currently so they did not have a bed available for the patient either. Again check with the patient and she stated that she was okay with trying to go to [facility] in [place]. At 1111 I spoke with Zoila at the transfer center for [facility] out of [place] and they also were at capacity and were not able to accept the patient. after speaking with the patient again she was willing to go to the [facility]. [facility] was an acceptable option for her. At 1123 I spoke with JALEESA Connors, at the [facility] transfer center and she took the patient's information and will call back after speaking with the hospitalist. If they feel that the patient needs more of an ICU setting then I will need to speak with the stagecraft professor otherwise I could speak with the hospitalist about the patient c oming to the stepdown or telemetry area. Progress Note #3: Time: 11:56 Progress Note Pt had no urine infection on testing. her UA shows trace ketones and specific gravity >1.030. with her acute renal failure and elevated creatinine as well as hypotension and weakness continue with transfer. At [address] speak with Dr[address] Byers and he accepted pt for Dr. Ray to come to [facility]. Will continue fluids and monitor her blood pressure and urine output. Diagnostic Imaging Diagonstic Imaging: CT Plain Films/CT/US/NM/MRI: c-spine, head Comments NAME: RADHA ABAD [facility] REC#: [id number] PT STATUS: REG ER : 1955 PHYSICIAN: DAYSI DE LA FUENTE MD ADMIT DATE: 02/20/20/ER FS Draft Date of Exam:02/20/20 CT HEAD/CERVICAL SPINE WO PROCEDURE: CT head and CT cervical spine without contrast. TECHNIQUE: Multiple contiguous axial images were obtained through the brain and cervical spine without the use of intravenous contrast. Sagittal and coronal reformations through the cervical spine were then performed. Auto Exposure Controls were utilized during the CT exam to meet ALARA standards for radiation dose reduction. INDICATION: Fall and dizziness. Comparison is made with prior CT from 09/01/2019. CT HEAD: Ventricles and sulci are within normal limits. No sulcal effacement or midline shift is identified. No acute intra-axial or extra-axial hemorrhage is detected. Cisterns are patent. Visualized paranasal sinuses are clear. IMPRESSION: No acute intracranial process is detected. CT CERVICAL SPINE: Curvature and alignment of the cervical spine is normal. There is generalized cervical spondylosis with variable disc space narrowing and marginal spurring. No fractures are seen. Prevertebral tissues are within normal limits. Odontoid is intact. IMPRESSION: No acute bony abnormality is detected. Dictated on workstation # [id number] Dict: 02/20/208 Trans: 02/20/20 1101 [facility] [id number] Interpreted by: VAL DREW MD Electronically signed by: Diagonstic Imaging: CT Plain Films/CT/US/NM/MRI: pelvis Comments NAME: RADHA ABAD [employer] REC#: [id number] PT STATUS: REG ER : 1955 PHYSICIAN: DAYSI DE LA FUENTE MD ADMIT DATE: 02/20/20/ER FS Draft Date of Exam:02/20/20 CT PELVIS WO PROCEDURE: CT pelvis without contrast. TECHNIQUE: Multiple contiguous axial images were obtained through the pelvis without the use of intravenous contrast. Sagittal and coronal reformations were performed. Auto Exposure Controls were utilized during the CT exam to meet ALARA standards for radiation dose reduction. INDICATION: Bilateral hip pain, frequent falls. COMPARISON: Radiographs dated 09/01/2019. FINDINGS: Postsurgical changes are identified within the partially visualized lower lumbar spine. Minimal retrolisthesis of L5 on S1 with minimal anterolisthesis of L4 on L5. Facet joint degenerative changes are present within the lower lumbar spine. Partial lumbarization of the S1 vertebral body. At least moderate bilateral neural foraminal stenosis at L5-S1, greater on the right. The sacroiliac joints are intact. No acute fracture or dislocation. No destructive osseous process. Mild degenerative changes of the bilateral hips. No abnormal sclerosis or collapse of the femoral heads. The pubic symphysis is intact with mild degenerative changes noted. Minimal scattered vascular calcifications. No large intramuscular hematoma. IMPRESSION: No acute osseous abnormality with degenerative and postsurgical changes as described above. Dictated on workstation # [id number] Dict: 02/20/20 1048 Trans: 02/20/20 1104 [facility] [id number] Interpreted by: JOSHUA LIN MD Electronically signed by: [employer] Imaging: Xray Plain Films/CT/US/NM/MRI: knee Comments [facility] [place] NAME: RADHA ABAD [employer] [facility] REC#: [id number] PT STATUS: REG ER : 1955 PHYSICIAN: DAYSI DE LA FUENTE MD ADMIT DATE: 02/20/20/ER FS Draft Date of Exam:02/20/20 KNEE 3 VIEW RIGHT INDICATION: Fall with right knee pain. Time of exam 10:16 a.m. Three views of the right knee were obtained. Alignment is normal. There is patellofemoral degenerative change noted. There is some spurring of the tibial spines. No fracture, dislocation or effusion is identified. IMPRESSION: Degenerative changes. No acute bony abnormality is detected. Dictated on workstation # [id number] Dict: 02/20/20 1050 Trans: 02/20/20 1105 IMS [id number] Interpreted by: VAL DREW MD Electronically signed by: [place] Imaging: Xray Plain Films/CT/US/NM/MRI: other (shoulder) Comments [facility] [place] NAME: RADHA ABAD [facility] REC#: [id number] PT STATUS: REG ER : 1955 PHYSICIAN: DAYSI DE LA FUENTE MD ADMIT DATE: 02/20/20/ER FS Draft Date of Exam:02/20/20 SHOULDER 2 VIEW LEFT INDICATION: Fall with left shoulder pain. Time of exam 10:20 a.m. Two views of the left shoulder were obtained. Glenohumeral and acromioclavicular alignment are normal. Acromial humeral space is normal. No fracture or dislocation is seen. IMPRESSION: No acute bony abnormality is detected. Dictated on workstation # [id number] Dict: 02/20/20 1051 Trans: 02/20/20 1107 IMS [id number] Interpreted by: VAL DREW MD Electronically signed by: Departure Impression Primary Impression: Acute renal failure Qualified Codes: N17.9 - Acute kidney failure, unspecified Additional Impressions: Dehydration Hypotension Qualified Codes: I95.9 - Hypotension, unspecified Disposition: XFER SHT-TRM HOSP Condition: Improved Transfer Transfer Reason: Diversion Time Spoke to Accepting Phy: 11:56 Transfer Progress Notes [address] Byers and he accepted pt on behalf of Dr. Ray for pt to come to a telemetry bed at [facility]. Will continued IVF for her blood pressure, but after a liter of NS she was 119/69 while speaking with the transfer center. Will continued hydration and monitor urine output. May need additional bolus but will try NS at 250 ml/hr. Transfer Facility: [facility] Method of Transfer: EMS Departure-Patient Inst. Referrals: NITISH VARELA MD (PCP/Family) Primary Care Physician DAYSI DE LA FUENTE MD Feb 20, 2020 10:18
[2020-02-20 10:25] LABS: BILIRUBIN,TOTAL 0.3 MG/DL (0.1-1.0); CALCIUM 8.9 MG/DL (8.5-10.1); CREATININE SERUM 3.02 MG/DL (0.60-1.30); POTASSIUM 5.1 MMOL/L (3.6-5.0)
[2020-02-20 10:26] LABS: ALBUMIN 3.7 GM/DL (3.2-4.5); TOTAL PROTEIN 7.1 GM/DL (6.4-8.2)
--- NOTE | 2020-02-20 11:01 | Diagnostic Imaging Report ---
PROCEDURE: CT head and CT cervical spine without contrast. TECHNIQUE: Multiple contiguous axial images were obtained through the brain and cervical spine without the use of intravenous contrast. Sagittal and coronal reformations through the cervical spine were then performed. Auto Exposure Controls were utilized during the CT exam to meet ALARA standards for radiation dose reduction. INDICATION: Fall and dizziness. Comparison is made with prior CT from 09/01/2019. CT HEAD: Ventricles and sulci are within normal limits. No sulcal effacement or midline shift is identified. No acute intra-axial or extra-axial hemorrhage is detected. Cisterns are patent. Visualized paranasal sinuses are clear. IMPRESSION: No acute intracranial process is detected. CT CERVICAL SPINE: Curvature and alignment of the cervical spine is normal. There is generalized cervical spondylosis with variable disc space narrowing and marginal spurring. No fractures are seen. Prevertebral tissues are within normal limits. Odontoid is intact. IMPRESSION: No acute bony abnormality is detected. Dictated by: Dictated on workstation # [id number]
--- NOTE | 2020-02-20 11:04 | Diagnostic Imaging Report ---
PROCEDURE: CT pelvis without contrast. TECHNIQUE: Multiple contiguous axial images were obtained through the pelvis without the use of intravenous contrast. Sagittal and coronal reformations were performed. Auto Exposure Controls were utilized during the CT exam to meet ALARA standards for radiation dose reduction. INDICATION: Bilateral hip pain, frequent falls. COMPARISON: Radiographs dated 09/01/2019. FINDINGS: Postsurgical changes are identified within the partially visualized lower lumbar spine. Minimal retrolisthesis of L5 on S1 with minimal anterolisthesis of L4 on L5. Facet joint degenerative changes are present within the lower lumbar spine. Partial lumbarization of the S1 vertebral body. At least moderate bilateral neural foraminal stenosis at L5-S1, greater on the right. The sacroiliac joints are intact. No acute fracture or dislocation. No destructive osseous process. Mild degenerative changes of the bilateral hips. No abnormal sclerosis or collapse of the femoral heads. The pubic symphysis is intact with mild degenerative changes noted. Minimal scattered vascular calcifications. No large intramuscular hematoma. IMPRESSION: No acute osseous abnormality with degenerative and postsurgical changes as described above. Dictated by: Dictated on workstation # [id number]
--- NOTE | 2020-02-20 11:05 | Diagnostic Imaging Report ---
INDICATION: Fall with right knee pain. Time of exam 10:16 a.m. Three views of the right knee were obtained. Alignment is normal. There is patellofemoral degenerative change noted. There is some spurring of the tibial spines. No fracture, dislocation or effusion is identified. IMPRESSION: Degenerative changes. No acute bony abnormality is detected. Dictated by: Dictated on workstation # [id number]
--- NOTE | 2020-02-20 11:07 | Diagnostic Imaging Report ---
INDICATION: Fall with left shoulder pain. Time of exam 10:20 a.m. Two views of the left shoulder were obtained. Glenohumeral and acromioclavicular alignment are normal. Acromial humeral space is normal. No fracture or dislocation is seen. IMPRESSION: No acute bony abnormality is detected. Dictated by: Dictated on workstation # [id number]
[2020-02-20 11:14] LABS: COLOR,URINE YELLOW
[2020-02-20 11:15] LABS: BACTERIA,URINE TRACE /HPF; BILIRUBIN,URINE NEGATIVE (NEGATIVE); CLARITY,URINE SLT CLOUDY; GLUCOSE, URINE (UA) NEGATIVE (NEGATIVE); KETONES,URINE TRACE (NEGATIVE); LEUKOCYTE ESTERASE ,URINE NEGATIVE (NEGATIVE); NITRITE,URINE NEGATIVE (NEGATIVE); PROTEIN,URINE NEGATIVE (NEGATIVE)
[2020-02-20 11:16] LABS: AMORPHOUS SEDIMENT,UR FEW AMOR URATES /LPF
[2020-02-20] MEDS ORDERED: ACETAMINOPHEN 500 MG TAB (TYLENOL) PO STA (11:21)
[2020-02-20 13:50] VITALS: BP 96/59
== END 2020-02-20 13:50 | disposition short-term general hospital (02) ==
LOC: EDUNIT# 09:20 → ER FS 09:21
DX: S80.212A Abrasion, left knee, initial encounter (principal); N17.9 Acute kidney failure, unspecified; E86.0 Dehydration; I95.9 Hypotension, unspecified; E66.9 Obesity, unspecified; Z68.41 Body mass index [BMI] 40.0-44.9, adult; Z88.2 Allergy status to sulfonamides; Z88.1 Allergy status to other antibiotic agents; Z88.5 Allergy status to narcotic agent; Z88.8 Allergy status to other drugs, medicaments and biological substances; W19.XXXA Unspecified fall, initial encounter
CPT/HCPCS: 36415; 51702; 70450; 72125; 72192; 73030; 73562; 80053; 81000; 85025

== ENCOUNTER 2020-03-24 10:49 | Emergency (ER) | payer MEDICARE, MEDICAID ==
[~2020-03-24] VITALS: Ht 160 cm; Wt 132.0 kg
[2020-03-24] MEDS: NS IV 1000 ML 1,000 ML IV SCH ×2 (10:53→13:50)
--- NOTE | 2020-03-24 11:15 | ED General ---
General Stated Complaint: SOB Source of Information: Patient, EMS Exam Limitations: Other (somnolent and slow to answer questions) History of Present Illness Date Seen by Provider: Mar 24, 2020 Time Seen by Provider: 10:49 Initial Comments 65-year-old female presenting with complaints of shortness of breath and hypoxia with hypertension at home. EMS was activated and transported her to the emergency department due to low blood pressure and low oxygen. She had reportedly been at [facility] last month for sepsis related to urinary tract infection. She does have a history of COPD but does not use oxygen at home. She is more fatigued and somnolent today. She improved with a breathing treatment, oxygen, IV fluids by EMS. She reports that she has not been feeling well for the last few days. She is unsure if she has had a fever or not. She denies having any nausea or vomiting, diarrhea, increasing cough. Allergies and Home Medications Allergies Coded Allergies: Sulfa (Sulfonamide Antibiotics) (Verified Allergy, Intermediate, Rash, 07/19/18) azithromycin (Verified Allergy, Intermediate, Nausea, 07/19/18) nausea and vomiting oxycodone (Verified Allergy, Intermediate, Rash, 07/19/18) prednisone (Verified Allergy, Intermediate, Rash, 07/19/18) Rash, Nausea/Vomiting propoxyphene (Verified Allergy, Intermediate, Rash, 07/19/18) vilazodone (Verified Allergy, Intermediate, Diarrhea, 07/19/18) aspartame (Verified Allergy, Unknown, 07/19/18) Home Medications Hydrocodone/Acetaminophen 1 Each Tablet, 1 TAB PO QHS Prescribed by: STEW HERBERT on 10/03/181346 Hydrocodone/Acetaminophen 1 Each Tablet, 1 TAB PO Q6H Prescribed by: PRASANNA CORDERO on 04/30/192056 Ibuprofen 400 Mg Tablet, 400 MG PO Q6H PRN for PAIN Prescribed by: STEW HERBERT on 10/03/181346 Ibuprofen 800 Mg Tablet, 800 MG PO Q8H PRN for PAIN Prescribed by: PRASANNA CORDERO on 04/30/192056 Mupirocin Calcium 15 Gm Cream..g., 15 GM TP TID Prescribed by: PHYLLIS CORREIA on 09/01/191948 Ondansetron 4 Mg Tab.rapdis, 4 MG PO BID Prescribed by: DIPAK BURRELL on 12/09/19 6600 Patient Home Medication List Home Medication List Reviewed: Yes Review of Systems Review of Systems Constitutional: chills; No fever; malaise, weakness EENTM: No epistaxis, No nose congestion Respiratory: cough (Chronic), short of breath Cardiovascular: No chest pain Gastrointestinal: No diarrhea, No nausea, No vomiting Genitourinary: No dysuria Musculoskeletal: no symptoms reported Skin: no symptoms reported Psychiatric/Neurological: Weakness (Generalized) Past Hvdikdc-Dmcvzt-Stxobi Hx Past Med/Social Hx: Reviewed Nursing Past Med/Soc Hx Patient Social History 2nd Hand Smoke Exposure: No Recent Hopitalizations: No Seasonal Allergies Seasonal Allergies: No Past Medical History Surgeries: Yes Section, Hysterectomy Respiratory: Yes Sleep Apnea Cardiac: Yes Hypertension Neurological: No [employer] History: Hysterectomy Genitourinary: No Gastrointestinal: Yes Gastroesophageal Reflux Musculoskeletal: Yes Degenerate Disk Disease, Arthritis Endocrine: Yes Diabetes, Non-Insulin dep HEENT: No Cancer: No Psychosocial: Yes Anxiety Integumentary: No Blood Disorders: No Physical Exam Vital Signs Vital Signs - First Documented 03/24/20 10:53 Temp 36.7 Pulse 88 Resp 18 B/P (MAP) 109/80 (90) Pulse Ox 98 O2 Delivery Room Air Capillary Refill : Height, Weight, BMI Height: 5'3.00" Weight: 250lbs. 0oz. [id number]; 44.00 BMI Method:Estimated General Appearance: Obese, Other (Somnolent) HEENT: PERRL/EOMI; No Moist Mucous Membranes (Slightly dry) Neck: Non Tender, Supple Respiratory: Chest Non Tender, No Accessory Muscle Use, No Respiratory Distress, Decreased Breath Sounds Cardiovascular: Regular Rate, Rhythm, Normal Peripheral Pulses Gastrointestinal: Normal Bowel Sounds, No Pulsatile Mass, Non Tender, Soft Extremity: Normal Capillary Refill, No Pedal Edema Neurologic/Psychiatric: Oriented x3, Other (Somnolent and slow to answer questions) Skin: Normal Color, Warm/Dry Focused Exam Lactate Level 03/24/20 11:05: Lactic Acid Level 0.54 Lactic Acid Level Laboratory Tests Test 03/24/20 11:05 Lactic Acid Level 0.54 MMOL/L (0.50-2.00) Progress/Results/Core Measures Suspected Sepsis SIRS Temperature: Pulse: Respiratory Rate: Laboratory Tests 03/24/20 11:05: White Blood Count 14.3H Blood Pressure / Mean: 03/24/20 11:05: Lactic Acid Level 0.54 Laboratory Tests 03/24/20 11:05: Creatinine 2.26H, INR Comment 1.0, Platelet Count 277, Total Bilirubin 0.3 Results/Orders Lab Results Laboratory Tests Test 03/24/20 11:05 03/24/20 11:14 Range/Units White Blood Count 14.3 H 4.3-11.0 10^3/uL Red Blood Count 3.07 L 4.35-5.85 10^6/uL Hemoglobin 9.0 L 11.5-16.0 G/DL Hematocrit 29 L 35-52 % Mean Corpuscular Volume 95 80-99 FL Mean Corpuscular Hemoglobin 29 25-34 PG Mean Corpuscular Hemoglobin Concent 31 L 32-36 G/DL Red Cell Distribution Width 15.0 H 10.0-14.5 % Platelet Count 277 130-400 10^3/uL Mean Platelet Volume 9.1 7.4-10.4 FL Immature Granulocyte % (Auto) 0 % Neutrophils (%) (Auto) 81 H 42-75 % Lymphocytes (%) (Auto) 14 12-44 % Monocytes (%) (Auto) 4 0-12 % Eosinophils (%) (Auto) 1 0-10 % Basophils (%) (Auto) 0 0-10 % Neutrophils # (Auto) 11.5 H 1.8-7.8 X 10^3 Lymphocytes # (Auto) 1.9 1.0-4.0 X 10^3 Monocytes # (Auto) 0.6 0.0-1.0 X 10^3 Eosinophils # (Auto) 0.2 0.0-0.3 10^3/uL Basophils # (Auto) 0.1 0.0-0.1 10^3/uL Immature Granulocyte # (Auto) 0.1 0.0-0.1 10^3/uL Neutrophils % (Manual) 69 % Lymphocytes % (Manual) 12 % Monocytes % (Manual) 4 % Eosinophils % (Manual) 1 % Band Neutrophils 14 % Stomatocytes MODERATE Prothrombin Time 13.6 12.2-14.7 SEC INR Comment 1.0 0.8-1.4 Activated Partial Thromboplast Time 28 24-35 SEC Blood Gas Puncture Site RT BRACHIAL Blood Gas Patient Temperature UNKNOWN Arterial Blood pH 7.34 *L 7.37-7.43 Arterial Blood Partial Pressure CO2 54 H 35-45 MMHG Arterial Blood Partial Pressure O2 54 L 79-93 MMHG Arterial Blood HCO3 29 H 23-27 MMOL/L Arterial Blood Total CO2 30.8 21.0-31.0 MMOL/L Arterial Blood Oxygen Saturation 85 L 94-100 % Arterial Blood Base Excess 2.3 -2.5-2.5 MMOL/L Jose A Test NA Blood Gas Ventilator Setting NO Blood Gas Inspired Oxygen ROOM AIR Sodium Level 128 L 135-145 MMOL/L Potassium Level 6.6 *H 3.6-5.0 MMOL/L Chloride Level 94 L 98-107 MMOL/L Carbon Dioxide Level 26 21-32 MMOL/L Anion Gap 8 5-14 MMOL/L Blood Urea Nitrogen 50 H 7-18 MG/DL Creatinine 2.26 H 0.60-1.30 MG/DL Estimat Glomerular Filtration Rate 22 BUN/Creatinine Ratio 22 Glucose Level 121 H 70-105 MG/DL Lactic Acid Level 0.54 0.50-2.00 MMOL/L Calcium Level 9.5 8.5-10.1 MG/DL Corrected Calcium 9.9 8.5-10.1 MG/DL Total Bilirubin 0.3 0.1-1.0 MG/DL Aspartate Amino Transf (AST/SGOT) 10 5-34 U/L Alanine Aminotransferase (ALT/SGPT) 5 0-55 U/L Alkaline Phosphatase 107 40-136 U/L Troponin I < 0.30 <0.30 NG/ML C-Reactive Protein 6.42 H <0.50 MG/DL Total Protein 6.9 6.4-8.2 GM/DL Albumin 3.5 3.2-4.5 GM/DL Urine Color YELLOW Urine Clarity SL CLOUDY Urine pH 5.5 5-9 Urine Specific [place] 1.025 H 1.016-1.022 Urine Protein NEGATIVE NEGATIVE Urine Glucose (UA) NEGATIVE NEGATIVE Urine Ketones TRACE H NEGATIVE Urine Nitrite NEGATIVE NEGATIVE Urine Bilirubin NEGATIVE NEGATIVE Urine Urobilinogen 1.0 < = 1.0 MG/DL Urine Leukocyte Esterase NEGATIVE NEGATIVE Urine RBC (Auto) NEGATIVE NEGATIVE Urine RBC NONE /HPF Urine WBC 0-2 /HPF Urine Squamous Epithelial Cells 10-25 H /HPF Urine Crystals PRESENT H /LPF Urine Amorphous Sediment MOD MARCOS URATES H /LPF Urine Bacteria FEW H /HPF Urine Casts PRESENT /LPF Urine Hyaline Casts >50 H /LPF Urine Mucus MODERATE H /LPF Urine Culture Indicated NO My Orders Orders - DAYSI DE LA FUENTE MD Monitor-Rhythm Ecg Trace Only (03/24/20 11:02) Cbc With Automated Diff (03/24/20 11:02) Comprehensive Metabolic Panel (03/24/20 11:02) Crp Fs (03/24/20 11:02) Troponin I Fs (03/24/20 11:02) Protime With Inr (03/24/20 11:02) Partial Thromboplastin Time (03/24/20 11:02) Ekg Tracing (03/24/20 11:02) Arterial Blood Gas (03/24/20 11:02) Ns Iv 1000 Ml (Sodium Chloride 0.9%) (03/24/20 11:15) Ed Iv/Invasive Line Start (03/24/20 11:02) Chest 1 View Ap/Pa Only (03/24/20 11:02) Ua Culture If Indicated (03/24/20 11:02) Straight Cath For Spec.-Adult (03/24/20 11:02) Blood Culture (03/24/20 11:02) Lactic Acid Analyzer (03/24/20 11:02) Ns Iv 1000 Ml (Sodium Chloride 0.9%) (03/24/20 11:49) Manual Differential (03/24/20 11:05) Calcium Gluconate 10% Inj (Calcium Glu (03/24/20 12:36) D50w (Emergency) Syringe (Dextrose 50% 5 (03/24/20 12:36) Insulin (Regular) Human (Novolin R (Per (03/24/20 12:36) Ns Iv 1000 Ml (Sodium Chloride 0.9%) (03/24/20 14:00) Vital Signs/I&O 03/24/20 03/24/20 10:53 14:13 Temp 36.7 36.7 Pulse 88 98 Resp 18 18 B/P (MAP) 109/80 (90) 103/61 Pulse Ox 98 96 O2 Delivery Room Air Room Air Capillary Refill : Progress Note #1: Progress Note Obtain basic labs as well as chest x-ray and with her somnolence and history of COPD with hypoxia at the scene and hypotension check a blood gas to look for hypercapnia and CO2 retention. Check blood cultures and lactic acid as well as urine to look for infection and sepsis. Give IV fluids to help with her hypotension. From reviewing her visit in February she was showing an acute kidney injury with elevated creatinine of 3 so it is possible that this could be happening again. In addition to acute kidney injury and dehydration other differential diagnosis include sepsis, pneumonia, COPD exacerbation, CO2 retention, UTI, anemia. Progress Note #2: Progress Note labs show elevated WBC at 14.3 and anemia with Hgb of 9. ABG with pH 7.34, pCO2 54, pO2 54, O2 sat 85% on room air but she was actually saturating 98% at the time the ABG was obtained. UA did not show infection. She had elevated potassium of 6.6 and sodium slightly low at 128, BUN of 50, Cr 2.26. Lactic acid was 0.54. CXR was clear of infiltrate or effusion. ECG shows prolonged SD interval of 232 ms and global T wave flattening but no ST elevation or T wave peaks. Her blood pressure did improve with Liter bolus of NS but when the fluids finish infusing her pressure trends back down. Will Give 2nd bolus of NS. For her pot assium will infuse 1 gram of Calcium gluconate, an amp of D50 with 10 units of regular insulin. 1245 d/w Dr. Perales for [facility] since she is a patient of Dr. Ron. Reviewed the case with Dr. Perales and the recent transfer on Feb 19 for the similar issues. She felt it would be better to have the patient go to a larger facility for nephrology care evaluation since that is not available in [facility]. The concern would be if the pt was not improving with simple hydration and treatment then nephrology and specialty care that is not available at [place] would be needed and so it would be better to transfer for that care now than trying to do it on a weekend. 1302 Dr. Benson resident physician at [facility] accepted pt for Dr. Stone. Will continue with fluid support to help with pressures. Pt will be an ED hold for now unless a bed opens up by the time she arrives at [facility]. ECG Initial ECG Impression Date: Mar 24, 2020 Initial ECG Impression Time: 11:36 Initial ECG Rate: 96 Initial ECG Rhythm: Normal Sinus Initial ECG Comparisson: Unchanged Comment Sinus rhythm with a heart rate of 96 bpm. Prolonged SD interval of [address] elevation. Global T wave flattening. QT interval 339 ms with a QTc interval of 429 ms. Appears similar to prior tracings in the system. Diagnostic Imaging Diagonstic Imaging: Xray Plain Films/CT/US/NM/MRI: chest Comments NAME: RADHA ABAD [facility] REC#: [id number] PT STATUS: REG ER : 1955 PHYSICIAN: DAYSI DE LA FUENTE MD ADMIT DATE: 03/24/20/ER FS Draft Date of Exam:03/24/20 CHEST 1 VIEW AP/PA ONLY INDICATION: Dyspnea Comparison is made to study of 07/24/2019. Heart size and pulmonary vascularity are at the upper limits of normal. No pneumothorax or consolidation is identified. Overall, there is no significant adverse change. IMPRESSION: Heart size and pulmonary vascularity are at the upper limits normal without overt edema or other acute abnormality detected. Dictated on workstation # [id number] Dict: 03/24/20 1149 Trans: 03/24/20 1151 CVB [id number] Interpreted by: TYLER CARTY MD Electronically signed by: Departure Impression Primary Impression: Hyperkalemia Additional Impressions: Renal insufficiency Hypotension Qualified Codes: I95.89 - Other hypotension; E86.1 - Hypovolemia Dehydration Disposition: 30 STILL A PATIENT Condition: Critical Transfer Transfer Reason: Exceeds level of care (No nephrology) Time Spoke to Accepting Phy: 13:02 Transfer Progress Notes d/w Resident physician Dr. Benson for Dr. Stone and accepted to telemetry bed for Dr. Stone. Transfer Facility: [facility] Method of Transfer: EMS Departure-Patient Inst. Referrals: NITISH RON MD (PCP/Family) Primary Care Physician DAYSI DE LA FUENTE MD Mar 24, 2020 11:15
[2020-03-24 11:23] LABS: INSPIRED O2 ROOM AIR; VENTILATOR NO
[2020-03-24 11:27] LABS: ABG BASE EXCESS 2.3 MMOL/L (-2.5-2.5); ABG OXYGEN SATURATION 85 % (94-100); ABG PCO2 54 MMHG (35-45); ABG PO2 54 MMHG (79-93); ABG TCO2 30.8 MMOL/L (21.0-31.0)
[2020-03-24 11:28] LABS: ABG PH 7.34 (7.37-7.43)
[2020-03-24] MEDS ORDERED: NS IV 1000 ML 1,000 ML IV STA (11:49)
--- NOTE | 2020-03-24 11:51 | Diagnostic Imaging Report ---
INDICATION: Dyspnea Comparison is made to study of 07/24/2019. Heart size and pulmonary vascularity are at the upper limits of normal. No pneumothorax or consolidation is identified. Overall, there is no significant adverse change. IMPRESSION: Heart size and pulmonary vascularity are at the upper limits normal without overt edema or other acute abnormality detected. Dictated by: Dictated on workstation # [id number]
[2020-03-24 11:55] LABS: HEMATOCRIT 29 % (35-52); MEAN CORPUSCULAR HEMOGLOBIN 29 PG (25-34); MEAN CORPUSCULAR HGB CONC 31 G/DL (32-36); MEAN CORPUSCULAR VOLUME 95 FL (80-99); MEAN PLATELET VOLUME 9.1 FL (7.4-10.4); MONOCYTES % (AUTO) 4 % (0-12); PLATELET COUNT 277 10^3/uL (130-400); WHITE BLOOD COUNT 14.3 10^3/uL (4.3-11.0)
[2020-03-24 11:56] LABS: BASOPHILS # (AUTO) 0.1 10^3/uL (0.0-0.1); BASOPHILS % (AUTO) 0 % (0-10); EOSINOPHILS # (AUTO) 0.2 10^3/uL (0.0-0.3); EOSINOPHILS % (AUTO) 1 % (0-10); LYMPHOCYTES # (AUTO) 1.9 X 10^3 (1.0-4.0); LYMPHOCYTES % (AUTO) 14 % (12-44); MONOCYTES # (AUTO) 0.6 X 10^3 (0.0-1.0); NEUTROPHILS # (AUTO) 11.5 X 10^3 (1.8-7.8); NEUTROPHILS % (AUTO) 81 % (42-75)
[2020-03-24 11:57] LABS: PROTHROMBIN TIME PATIENT 13.6 SEC (12.2-14.7)
[2020-03-24 11:58] LABS: BILIRUBIN,TOTAL 0.3 MG/DL (0.1-1.0); BUN/CREATININE RATIO 22; CALCIUM 9.5 MG/DL (8.5-10.1); CARBON DIOXIDE 26 MMOL/L (21-32); CHLORIDE 94 MMOL/L (98-107); CREATININE SERUM 2.26 MG/DL (0.60-1.30); GFR ESTIMATED 22; GLUCOSE 121 MG/DL (70-105); SODIUM 128 MMOL/L (135-145)
[2020-03-24 11:59] LABS: ALANINE AMINOTRANSFERASE 5 U/L (0-55); ALBUMIN 3.5 GM/DL (3.2-4.5); ALKALINE PHOSPHATASE 107 U/L (40-136); TOTAL PROTEIN 6.9 GM/DL (6.4-8.2)
[2020-03-24 12:00] LABS: POTASSIUM 6.6 MMOL/L (3.6-5.0)
[2020-03-24 12:01] LABS: CLARITY,URINE SL CLOUDY; COLOR,URINE YELLOW; GLUCOSE, URINE (UA) NEGATIVE (NEGATIVE); PH,URINE 5.5 (5-9); PROTEIN,URINE NEGATIVE (NEGATIVE)
[2020-03-24 12:02] LABS: BACTERIA,URINE FEW /HPF; BILIRUBIN,URINE NEGATIVE (NEGATIVE); HYALINE CASTS, URINE >50 /LPF; KETONES,URINE TRACE (NEGATIVE); LEUKOCYTE ESTERASE ,URINE NEGATIVE (NEGATIVE); NITRITE,URINE NEGATIVE (NEGATIVE); WBC,URINE 0-2 /HPF
[2020-03-24 12:03] LABS: AMORPHOUS SEDIMENT,UR MOD AMOR URATES /LPF
[2020-03-24] MEDS ORDERED: inSUlin (REGULAR) HUMAN 1 UNIT/0.01 ML (CHARGE PER UNIT) IV STA (12:36)
[2020-03-24] MEDS ORDERED: DEXTROSE 50% 50 ML (IMS) SYR IV STA (12:36)
[2020-03-24] MEDS ORDERED: CALCIUM GLUCONATE 10% INJ 4.65 MEQ in NS (IVPB) 50 ML IV STA (12:36)
[2020-03-24 12:38] LABS: BAND NEUTROPHILS 14 %; EOSINOPHILS % (MANUAL) 1 %; LYMPHOCYTES % (MANUAL) 12 %; MONOCYTES % (MANUAL) 4 %; NEUTROPHILS % (MANUAL) 69 %
[2020-03-24 12:39] LABS: STOMATOCYTES MODERATE
[2020-03-24] MEDS ORDERED: NS IV 1000 ML 1,000 ML IV SCH (14:00)
[2020-03-24 14:13] VITALS: BP 103/61
== END 2020-03-24 14:11 | disposition short-term general hospital (02) ==
LOC: EDUNIT# 10:49 → ER FS 10:50
DX: E87.5 Hyperkalemia (principal); N28.9 Disorder of kidney and ureter, unspecified; I95.9 Hypotension, unspecified; E86.0 Dehydration; E66.9 Obesity, unspecified; Z68.41 Body mass index [BMI] 40.0-44.9, adult; Z88.5 Allergy status to narcotic agent; Z88.1 Allergy status to other antibiotic agents; Z88.2 Allergy status to sulfonamides; Z88.8 Allergy status to other drugs, medicaments and biological substances
CPT/HCPCS: 36415; 51701; 71045; 80053; 81000; 82805; 83605; 84484; 85007; 85027; 85610; 85730; 86141; 87040; 93041

== ENCOUNTER → 2020-04-04 | Outpatient (CLI) | payer MEDICARE, MEDICAID ==
--- NOTE | 2020-04-04 13:07 | Diagnostic Imaging Report ---
INDICATION: Dyspnea. TECHNIQUE: PA and lateral chest obtained at 12:38 p.m. and compared to 03/24/2020. FINDINGS: There is poor inspiration. The heart is borderline in size. Mediastinal silhouette is unremarkable. The lungs show no focal infiltrate. There is no pneumothorax or gross pleural fluid. There is some motion artifact on the lateral view. IMPRESSION: No acute process in the chest. Dictated by: Dictated on workstation # [id number]
== END ==
LOC: RAD FS 12:29
PROVIDERS: ATTEND Family Medicine
DX: T17.920A Food in respiratory tract, part unspecified causing asphyxiation, initial encounter (principal); R06.02 Shortness of breath; R06.2 Wheezing
CPT/HCPCS: 71046